=== PATIENT | male | born 1955 | race Caucasian/White ===

== ENCOUNTER 2020-09-01 13:46 | Outpatient (REF) | payer MEDICARE, OTHER, SELFPAY ==
[2020-09-01 14:42] LABS: Blood Urea Nitrogen 17 mg/dL (9-16); Estimated Glomerular Filt Rate > 60
== END 2020-09-01 13:47 | disposition home or self-care (01) ==
LOC: HO.LAB 13:46
PROVIDERS: PCP Internal Medicine; Visit Provider Internal Medicine
DX: Z01.812 Encounter for preprocedural laboratory examination (principal)
CPT/HCPCS: 82565; 84520

== ENCOUNTER 2020-09-06 07:41 | Outpatient (REF) | payer MEDICARE, OTHER, SELFPAY ==
--- NOTE | 2020-09-06 07:47 | CT_ITS ---
EXAMINATION: CT ABDOMEN AND PELVIS WITH CONTRAST CLINICAL INFORMATION: Mesenteric adenitis COMPARISON: CT abdomen and pelvis with contrast 03/17/2020 TECHNIQUE: Multidetector volumetric images were obtained from the superior aspect of the liver through the pubic symphysis following administration 95 mL of Omnipaque 350 intravenous contrast. Sagittal and coronal reformatted images were obtained on the technologist's workstation. Oral contrast: No This CT examination was performed using dose optimization techniques as appropriate, variously including the following: *Automated exposure control *Adjustment of mA and/or kV according to patient size (this includes techniques or standardized protocols for targeted exams where dose is matched to indication/reason for exam; i.e. extremities or head) *Use of iterative reconstruction technique DLP: 1249 mGy-cm FINDINGS: LUNG BASES: The visualized lung bases are unremarkable. LIVER, GALLBLADDER, AND BILIARY TREE: The liver is normal in size, shape, and attenuation. No focal hepatic lesion or biliary ductal dilatation is present. The gallbladder has been surgically removed. PANCREAS: Unremarkable. SPLEEN: Unremarkable. ADRENAL GLANDS: Unremarkable. KIDNEYS AND URETERS: The kidneys are slightly lobulated but normal size and position. There is a partially exophytic 2.2 x 2.0 cm lesion in the midpole and a smaller 7 mm cyst in the lower pole of the right kidney. BLADDER: Unremarkable. GASTROINTESTINAL TRACT: There is scattered stool and gas seen throughout the colon without distention. The small bowel loops are normal caliber. The stomach is nondistended. There is an 8 mm lesion at the tip of the inferior spleen, stable. The appendix is not seen. ABDOMINAL WALL: There is a small fat-containing umbilical and left inguinal hernia. LYMPH NODES: Again visualized are multiple small mesenteric lymph nodes most pronounced in the right abdomen pericecal region and right small bowel mesentery. Mild stranding along the mesenteric root is also stable. No abnormal retroperitoneal lymph nodes seen. VASCULAR: Unremarkable. PELVIC VISCERA: There is no free air or free fluid. The prostate gland is normal size. OSSEOUS STRUCTURES: No lytic or sclerotic process seen. There is mild ventral spondylosis, lower dorsal spine. CT/CT abdomen pelvis w con IMPRESSION: 1. Stable small mesenteric lymph nodes and mild focal haziness along the root of the mesentery. Likely nonspecific mesenteric adenitis. However, inflammatory, infectious etiology including lymphoma is not excluded. Consider long-term follow-up in 1 year. 2. No change in the umbilical and left inguinal hernia. 3. Exophytic lesion inferior tip of spleen, and 2 right renal cysts are stable.
[2020-09-06] MEDS: iohexoL 350 MG/ML 100 ML INFUS..BTL 95 ML IV (10:24)
[2020-09-06] MEDS: Barium Sulfate Oral (Vanilla) 450 ML ORAL.SUSP 900 ML PO (10:27)
== END 2020-09-06 07:42 | disposition home or self-care (01) ==
LOC: HO.CT 07:41
PROVIDERS: Visit Provider Internal Medicine
DX: I88.0 Nonspecific mesenteric lymphadenitis (principal)
CPT/HCPCS: 74177; Q9967

== ENCOUNTER 2020-11-16 06:48 | Outpatient (REF) | payer MEDICARE, OTHER, SELFPAY ==
[2020-11-16 07:47] LABS: Alanine Aminotransferase 16 U/L (0-40); Albumin Level 4.1 g/dL (3.5-5.0); Alkaline Phosphatase 92 U/L (39-117); Aspartate Amino Transferase 20 U/L (5-37); Bilirubin Direct 0.4 mg/dL (0.0-0.5); Bilirubin Total 0.8 mg/dL (0.0-1.0); Cholesterol 135 mg/dL; Glucose Fasting 122 mg/dL (60-99); HDL Cholesterol 37 mg/dL; LDL Cholesterol Calculated 73 mg/dl; Total Protein 7.2 g/dL (6.5-8.0); Triglycerides 127 mg/dL
[2020-11-16 08:08] LABS: Thyroid Stimulating Hormone 1.61 uIU/mL (0.32-4.0)
[2020-11-16 08:21] LABS: Reflex LDLD? No
[2020-11-16 09:11] LABS: Estimated Average Glucose 120 mg/dL; Hemoglobin A1c % 5.8 %
== END 2020-11-16 06:49 | disposition home or self-care (01) ==
LOC: HO.LAB 06:48
PROVIDERS: PCP Internal Medicine; Visit Provider Internal Medicine
DX: E78.2 Mixed hyperlipidemia (principal); R73.03 Prediabetes
CPT/HCPCS: 36415; 80061; 80076; 82947; 83036; 84443

== ENCOUNTER → 2020-12-27 08:30 | Outpatient (BNVA) | payer MEDICARE, OTHER, SELFPAY | PROVIDERS: PCP Internal Medicine; Visit Provider Internal Medicine Cardiovascular Disease | DX: I48.91 Unspecified atrial fibrillation (principal) | CPT/HCPCS: 93005 ==

== ENCOUNTER 2021-03-04 12:39 | Emergency (ER) | payer MEDICARE, OTHER, SELFPAY ==
--- NOTE | ~2021-03-04 | XR_ITS ---
EXAMINATION: XR KNEE, RIGHT CLINICAL INFORMATION: Heart upon. Unable to walk COMPARISON: Right knee 08/31/2012 TECHNIQUE: Four views of the right knee. FINDINGS: Minimal loss of medial compartment joint space is noted. There is moderate superior patellar spurring. A small suprapatellar joint effusion. No visible acute fracture, dislocation or lytic process seen. Prominent anterior tibial tubercle is noted. XR/XR knee RT 4V IMPRESSION: No visible acute fracture or dislocation. Moderate superior patellar enthesophyte and minimal anterior tibial tubercle spurring.
--- NOTE | ~2021-03-04 | US_ITS ---
EXAMINATION: ULTRASOUND X-RAY NONVASCULAR RIGHT LOWER EXTREMITY. CLINICAL INFORMATION: Swelling right bilateral fossa. Question Sinclair's cyst. COMPARISON: None TECHNIQUE: Limited imaging through the right popliteal fossa was performed. FINDINGS: There is no discernible Sinclair's cyst present. Minimal fluid is seen along the lateral aspect of right knee, nonspecific. US/US extremity nonvascular johnson IMPRESSION: No Sinclair's cyst seen.
[2021-03-04 13:27] VITALS: BP 148/76; PULSE 65; RESP 18; TEMP 36.6; O2SAT 96; BMI 43.6
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
--- NOTE | 2021-03-04 15:42 | PC.NURSE ---
PATIENT OFF UNIT TO [facility]
--- NOTE | 2021-03-04 17:48 | MHC.CM.ED ---
CM was asked to help with arranging a wheelchair for this pt at 1700. DME stores in [place] close at 1700. [facility] in [place] is open until 7pm. Cm called [facility] to determine what is needed to obtain a wheelchair and have it covered by insurance. Process includes prescription, clinicals, diagnosis, height and weight. That needs to be faxed to DME company and then they will submit to Medicare. Once approved, they will issue the wheelchair. Process could take a couple of days, especially over the weekend. Explained to pt and , they refuse wheelchair at this time and do not want CM to submit required paperwork to DME. Asked CM to call [facility] on [address] to inquire about walkers to purchase. CM called [facility]. They have a standard walker, which supports 350 pounds for $89. Pt and will purchase that. They understand that [facility] cannot submit to insurance for DME. Pt needs to f/u with orthopedics and possible MRI, so they will wait and have orthopedics complete paperwork for w/c if needed. Encouraged pt to rest as much as possible and stay off that knee.
[2021-03-04] MEDS: traMADoL HCL 50 MG TABLET PO (17:50)
== END 2021-03-04 18:03 | disposition home or self-care (01) ==
PROVIDERS: Emergency Provider Internal Medicine; PCP Internal Medicine
DX: M25.561 Pain in right knee (principal); M54.5 Low back pain; I48.0 Paroxysmal atrial fibrillation; Z79.899 Other long term (current) drug therapy
CPT/HCPCS: 73564; 76882; 99283

== ENCOUNTER 2021-03-22 08:14 | Outpatient (REF) | payer MEDICARE, OTHER, SELFPAY ==
--- NOTE | ~2021-03-22 | XR_ITS ---
EXAMINATION: XR KNEE, RIGHT CLINICAL INFORMATION: Right knee pain. COMPARISON: Right knee radiographs dated 03/04/2021. TECHNIQUE: [place] view of the right knee. FINDINGS: The patella is well seated within the trochlea. Mild joint space narrowing with small marginal osteophytes. Central trochlea subchondral cystic change. Superior patellar enthesophytes. XR/XR knee RT 2V IMPRESSION: Mild patellofemoral osteoarthritis, unchanged.
== END 2021-03-22 08:15 | disposition home or self-care (01) ==
LOC: HO.HOSX 08:14
PROVIDERS: Visit Provider Physician Assistant
DX: M17.11 Unilateral primary osteoarthritis, right knee (principal)
CPT/HCPCS: 73560; 99202

== ENCOUNTER 2021-04-27 12:00 | Outpatient (RCR) | payer MEDICARE, OTHER, SELFPAY ==
[2021-04-11 14:07] VITALS: BP 118/70
--- NOTE | 2021-04-11 15:07 | MHC.PT.EP ---
[facility] [place] Office [place] Office [place] Office [address] [phone] F: [phone] F: [phone] F: [phone] F: [phone] Physical Therapy Plan of Care Date of Evaluation: Date of Surgery: NA Diagnosis: Unilateral primary OA of R knee Assessment: Mahin is a 65 year old male referred to PT for unilateral OA of R knee . He reports of having pain for about a month. On PT examination he presented with 4/10 pain, TTP over distal 1/3rd of qaud and fibular head, decreased knee ROM, decreased hip and knee muscle strength, altered posture and gait. He would benefit from skilled PT to address the aforementioned impairments so as to increase his tolerance standing, walking, sit to stand and stair negotiation. He is highly motivated to participate in therapy. Frequency and Duration: The patient will be seen 2/week for 5 weeks Short Term Goals: 1. Pt will present with 50% decrease in pain which will enable him to walk for 30 minutes with straight cane in 2 weeks. 2. Pt will present with knee ROM WNL which will help him negotiate stairs without any pain in 3 weeks Compliance Auditor Goals: 1. Pt will demonstrate an increase in muscle strength by 1 grade which will help him perform sit to stand and get in and out of tub without pain in 4 weeks. 2. Pt will independent with independent with all HEPs for symptom management and maintenance following d/c in 5 weeks. Treatment Plan: Modalities to reduce pain, spasms and effusion. Manual therapy to restore motion and function. Therapeutic exercise to improve strength and flexibility. Neuromuscular re-education for posture and balance. Therapeutic activities to return to functional activities of daily living. Electronically signed by: Kylah Ibarra PT DPT Please sign and return to therapist. Thank you for your referral.
--- NOTE | 2021-06-08 15:51 | MHC.PT.DC ---
[facility] [place] Office [place] Office [place] Office [address] [address] [phone] F: [phone] F: [phone] F: [phone] F: [phone] Physical Therapy Discharge Report Diagnosis: Unilateral primary OA of R knee Date of Surgery: NA Date of Evaluation: 04/11/21 Date of Discharge: 06/08/21 Treatments to Date: 4 Cancellations to Date: 0 No Shows to Date: 0 Discharge Status: Patient Elected to Stop Discharge Summary: Pt did not come to therapy after 4 visits. He is therefore being d/c from therapy. Electronically signed by: Kylah Ibarra PT DPT Please sign and return to therapist. Thank you for your referral.
== END 2021-12-09 13:42 | disposition home or self-care (01) ==
LOC: HO.PT 12:00
PROVIDERS: Visit Provider Physician Assistant
DX: M17.11 Unilateral primary osteoarthritis, right knee (principal)
CPT/HCPCS: 97014; 97110; 97161; 97530

== ENCOUNTER 2021-05-23 11:04 | Outpatient (REF) | payer MEDICARE, OTHER, SELFPAY ==
[2021-05-23 11:09] LABS: MANUAL DIFF FLAG NO
[2021-05-23 11:40] LABS: Basophils Absolute Auto 0.1 X10*3/uL (0.0-0.2); Basophils Percent Auto 0.6 % (0-2); Eosinophils Absolute Auto 0.3 X10*3/uL (0.0-0.4); Eosinophils Percent Auto 3.5 % (0-4); Hematocrit 42.7 % (42-52); Hemoglobin 13.7 g/dl (14.0-18.0); Imm Gran Abs Auto 0.02 X10*3/uL (0.00-0.03); Imm Gran Pct Auto 0.2 % (0.0-0.4); Lymphocytes Absolute Auto 3.2 X10*3/uL (1.2-4.9); Lymphocytes Percent Auto 34.3 % (20-40); Mean Corpuscular HGB Conc 32.1 g/dl (31.0-36.0); Mean Corpuscular Hemoglobin 29.8 pg (27.0-33.0); Mean Platelet Volume 11.2 fL (9.4-12.4); Monocytes Absolute Auto 0.9 X10*3/uL (0.1-1.2); Monocytes Percent Auto 10.1 % (2-11); Neutrophils Absolute Auto 4.7 X10*3/uL (2.0-8.3); Neutrophils Percent Auto 51.3 % (45-73); Platelet Count 190 X10*3/uL (160-400); Red Blood Count 4.59 X10*6/uL (4.60-5.80); Red Cell Distribution Width 12.4 % (11.0-16.0); White Blood Count 9.2 X10*3/uL (4.8-10.8)
[2021-05-23 12:02] LABS: Alanine Aminotransferase 22 U/L (0-40); Albumin Level 3.9 g/dL (3.5-5.0); Alkaline Phosphatase 87 U/L (39-117); Anion Gap 13 (12-20); Aspartate Amino Transferase 21 U/L (5-37); Bilirubin Total 0.5 mg/dL (0.0-1.0); Blood Urea Nitrogen 19 mg/dL (9-16); Calcium 8.7 mg/dL (8.4-10.2); Carbon Dioxide 27 mmol/L (22-29); Chloride 105 mmol/L (96-108); Cholesterol 101 mg/dL; Estimated Glomerular Filt Rate > 60; Glucose Fasting 111 mg/dL (60-99); HDL Cholesterol 31 mg/dL; LDL Cholesterol Calculated 53 mg/dl; Potassium 4.6 mmol/L (3.3-5.1); Sodium 140 mmol/L (135-145); Triglycerides 88 mg/dL
[2021-05-23 12:05] LABS: Reflex LDLD? No
[2021-05-23 12:13] LABS: Estimated Average Glucose 117 mg/dL; Hemoglobin A1c % 5.7 %
[2021-05-23 12:16] LABS: PSA,Total (Free>4and<10) 0.24 ng/mL (0.00-4.00)
[2021-05-23 12:29] LABS: Glucose Urine UA NEG (NEG); Leukocyte Esterase Urine NEG (NEG); Nitrite Urine NEG (NEG); Specific Gravity - Urine 1.025 (1.005-1.025); Urine Blood NEG (NEG); Urine Ketones NEG (NEG); Urine Protein NEG (NEG-TRACE)
[2021-05-23 12:41] LABS: Appearance Urine CLEAR; Color Urine YELLOW
[2021-05-23 12:46] LABS: Creatinine Urine 128.13 mg/dL; Microalbumin Urine < 5.0 mg/L
== END 2021-05-23 11:05 | disposition home or self-care (01) ==
LOC: HO.LNP 11:04
PROVIDERS: Visit Provider Internal Medicine
DX: Z12.5 Encounter for screening for malignant neoplasm of prostate (principal); R73.03 Prediabetes; E78.2 Mixed hyperlipidemia; I10 Essential (primary) hypertension
CPT/HCPCS: 80053; 80061; 81003; 82043; 83036; 84153; 85025

== ENCOUNTER → 2021-07-11 08:23 | Outpatient (BNVA) | payer MEDICARE, OTHER, SELFPAY | PROVIDERS: PCP Internal Medicine; Visit Provider Internal Medicine Cardiovascular Disease | DX: I48.0 Paroxysmal atrial fibrillation (principal); I10 Essential (primary) hypertension | CPT/HCPCS: 93005; 99212 ==

== ENCOUNTER → 2021-08-18 10:15 | Outpatient (REF) | payer MEDICARE, OTHER, SELFPAY ==
--- NOTE | 2021-08-18 10:21 | CA_ITS ---
Transthoracic Echocardiogram Patient (Last, First, Middle): Mahin Ambrocio G Gender: Male Date of : 1955 Age: 65 Procedure Date: 08/18/2021 Procedure Type: Transthoracic Echocardiogram Location: OP Height: 187.96 cm Weight: 137.89 kg BSA: 2.60 m2 Heart Rate: bpm BP: 114 / 57 mmHg Capacity Management Specialist: YR/CP Referring MD: Lucas Chris MD Market Development Specialist: Lucas Chris MD Symptoms: I48.0 - Paroxysmal atrial fibrillation Study Quality: Technically Difficult/Contrast ECG Rhythm: Sinus Conclusions: - 1. Normal LV systolic function with suggestion of pseudonormal filling pattern 2. Mildly dilated left atrium 3. Normal cardiac valvular Doppler 4. Normal RV systolic pressure 5. No gross pericardial effusion Findings Procedure Information Contrast agent, definity, is being given per protocol without apparent complications. Left Ventricle Normal left ventricular size, thickness, and systolic function. The visually estimated ejection fraction is between 55-60%. Spectral Doppler is indicative of a pseudonormal filling pattern. E/E prime ratio is between 8 and 15 consistent with indeterminate filling pressures. Right Ventricle Normal right ventricular cavity size and systolic function. Atria The left atrium is mildly dilated. Interatrial shunt cannot be excluded. The right atrium was not well visualized. Aortic Valve The aortic valve structure and function is likely normal. There is no aortic valve stenosis. There is no aortic valve regurgitation. Mitral Valve Likely normal mitral valve structure and function. There is trace mitral valve regurgitation. There is no mitral valve stenosis. Pulmonic Valve The pulmonic valve was not well visualized. Tricuspid Valve The tricuspid valve was not well visualized. There is trace tricuspid valve regurgitation. The right ventricular systolic pressure is normal. The right ventricular systolic pressure is 30 mmHg. Normal right atrial pressure. There is no evidence of pulmonary hypertension. Great Vessels All visible segments of the aorta are normal in size. The pulmonary artery was not well visualized. Venous The inferior vena cava is normal in size. Pericardium/Pleural There is no evidence of pericardial effusion. Prior Study Comparison No significant change compared to prior study dated: 06/09/2019. Measurements 2D Linear Measurements IVSd: 0.92 0.6-0.9/0.6-1.0 cm LVIDd: 5.94 3.9-5.3/4.2-5.9 cm LVIDd Index: 2.28 2.4-3.2/2.2-3.1 cm/m2 LVIDs: 3.87 2.0-3.6 cm LVPWd: 0.86 0.7-1.1 cm Ao Root: 3.20 2.1-3.5 cm LA Diam: 4.60 2.7-3.8/3.0-4.0 cm LAIDs Index: 1.77 1.5-2.3 cm/m2 LV Mass: 260.91 67-162/88-224 g LV Mass Index: 100.35 43-95/49-115 g/m2 LVOT Diam: 2.20 3.0+(-)1.3 cm 2D Systolic Function EF 4C: 52.70 >55% EF 2C: 59.90 >55% EF BiP: 56.00 >55% Mitral Valve MV Pk E: 0.93 MV PK A: 0.67 MV Decel Time: 235.00 E/A: 1.40 E'Lateral: 11.10 E'Medial: 6.42 E/E' Med: 14.50 E/E' Lat: 8.40 PHT: 69.00 MVA PHT: 3.19 Decel Duchesne: 3.98 Aortic Valve AoV Pk Booker: 1.79 AoV Mn Booker: 1.24 AoV VTI: 0.41 AoV Pk Grad: 13.00 Aov Mn Grad: 7.00 DAMON Cont.VTI: 2.12 LVOT LVOT Pk Booker: 1.01 LVOT Mn Booker: 0.72 LVOT VTI: 0.23 LVOT Pk Grad: 4.00 LVOT Mn Grad: 2.00 LVOT Diam: 2.20 LVOT Area: 3.80 Diastolic Function MV Pk E: 0.93 MV Pk A: 0.67 E/A: 1.40 E'Medial: 6.42 E/E' Med: 14.50 E' Laterial: 11.10 E/E' Lat: 8.40 Right Ventricle TAPSE (mm): 3.10 TVS' Booker: 11.00 Tricuspid Valve TR Pk Booker: 2.58 TR Pk Grad: 27.00 RA Press: 3.00 RVSP: 30.00 Great Vessels Aorta Ao Root-2D: 3.20 2.0-3.7 cm Ao Asc: 3.40 2.1-3.4 cm Updated in Other Vendor System with Status of Final Lucas Chris MD electronically signed on 08/18/2021 12:25:10 PM with status of Final
== END ==
LOC: HO.CARD 10:15
PROVIDERS: PCP Internal Medicine; Visit Provider Internal Medicine Cardiovascular Disease
DX: I48.0 Paroxysmal atrial fibrillation (principal)
CPT/HCPCS: 93306; Q9957

== ENCOUNTER 2021-09-01 13:57 | Outpatient (REF) | payer MEDICARE, OTHER, SELFPAY ==
[2021-09-01 14:24] LABS: Blood Urea Nitrogen 19 mg/dL (9-16); Estimated Glomerular Filt Rate > 60
== END 2021-09-01 13:58 | disposition home or self-care (01) ==
LOC: HO.LNP 13:57
PROVIDERS: Visit Provider Internal Medicine
DX: Z01.812 Encounter for preprocedural laboratory examination (principal); R73.03 Prediabetes
CPT/HCPCS: 82565; 84520

== ENCOUNTER 2021-09-05 08:20 | Outpatient (REF) | payer MEDICARE, OTHER, SELFPAY ==
--- NOTE | ~2021-09-05 | CT_ITS ---
EXAMINATION: CT ABDOMEN AND PELVIS WITH CONTRAST CLINICAL INFORMATION: Diverticulitis COMPARISON: Previous CT of the abdomen and pelvis August 2020 TECHNIQUE: Multidetector volumetric images were obtained from the superior aspect of the liver through the pubic symphysis following administration 85 mL of Omnipaque 350 intravenous contrast. Sagittal and coronal reformatted images were obtained on the technologist's workstation. Oral contrast: Yes This CT examination was performed using dose optimization techniques as appropriate, variously including the following: *Automated exposure control *Adjustment of mA and/or kV according to patient size (this includes techniques or standardized protocols for targeted exams where dose is matched to indication/reason for exam; i.e. extremities or head) *Use of iterative reconstruction technique DLP: 936 mGy-cm FINDINGS: LUNG BASES: The visualized lung bases are unremarkable. LIVER, GALLBLADDER, AND BILIARY TREE: The liver is normal in size, shape, and attenuation. No focal hepatic lesion or biliary ductal dilatation is present. The gallbladder has been removed. PANCREAS: Unremarkable. SPLEEN: Unremarkable. ADRENAL GLANDS: Unremarkable. KIDNEYS AND URETERS: The kidneys are normal in size, shape, and attenuation. No hydronephrosis, hydroureter, or calculi seen. There is a 2 cm cyst in the upper pole and smaller 8 mm probable cyst in the lower pole of the right kidney. Stable and no imaging follow-up needed. BLADDER: Unremarkable. GASTROINTESTINAL TRACT: The small and large bowel are unremarkable. The appendix is not seen. Stomach is unremarkable. ABDOMINAL WALL: There is a small umbilical hernia containing fat. There is a small left inguinal hernia containing fat. LYMPH NODES: There are numerous shotty small bowel mesentery lymph nodes and some retroperitoneal lymph nodes. This does not appear appreciably changed from 2020 exam. VASCULAR: There is evidence of atherosclerotic disease. No aneurysm is seen. PELVIC VISCERA: The prostate gland is slightly enlarged and measures 4.5 x 5.3 cm in AP and transverse dimension. OSSEOUS STRUCTURES: There are degenerative changes of the spine and hip joints. There is curvature of the lower lumbar spine to the right.. CT/CT abdomen pelvis w con IMPRESSION: No evidence of diverticulosis or diverticulitis. Slightly enlarged prostate gland. Stable shotty small bowel mesentery and retroperitoneal lymphadenopathy. Small right renal cyst. Fleischner guidelines were followed.
[2021-09-05] MEDS: Barium Sulfate Oral (Mocha) 450 ML ORAL.SUSP 900 ML PO (10:57)
[2021-09-05] MEDS: iohexoL 350 MG/ML 100 ML INFUS..BTL IV (10:58)
== END 2021-09-05 08:21 | disposition home or self-care (01) ==
LOC: HO.CT 08:20
PROVIDERS: Visit Provider Internal Medicine
DX: K57.92 Diverticulitis of intestine, part unspecified, without perforation or abscess without bleeding (principal)
CPT/HCPCS: 74177; Q9967

== ENCOUNTER → 2022-01-24 13:49 | Outpatient (BNVA) | payer MEDICARE, OTHER, SELFPAY | PROVIDERS: PCP Internal Medicine; Referring Provider Internal Medicine; Visit Provider Nurse Practitioner Family | DX: I10 Essential (primary) hypertension (principal); I48.0 Paroxysmal atrial fibrillation; Z79.01 Long term (current) use of anticoagulants; Z79.899 Other long term (current) drug therapy | CPT/HCPCS: 93005; 99212 ==

== ENCOUNTER 2022-02-23 11:01 | Outpatient (REF) | payer MEDICARE, OTHER, SELFPAY ==
[2022-02-23 11:18] LABS: Estimated Average Glucose 114 mg/dL; Hemoglobin A1c % 5.6 %
[2022-02-23 11:23] LABS: Alanine Aminotransferase 17 U/L (0-40); Alkaline Phosphatase 88 U/L (39-117); Aspartate Amino Transferase 22 U/L (5-37); Bilirubin Direct 0.5 mg/dL (0.0-0.5); Bilirubin Total 1.1 mg/dL (0.0-1.0); Cholesterol 118 mg/dL; Glucose Fasting 108 mg/dL (60-99); HDL Cholesterol 35 mg/dL; LDL Cholesterol Calculated 63 mg/dl; Total Protein 7.5 g/dL (6.5-8.0); Triglycerides 100 mg/dL
[2022-02-23 11:46] LABS: Reflex LDLD? No
== END 2022-02-23 11:02 | disposition home or self-care (01) ==
LOC: HO.LNP 11:01
PROVIDERS: Visit Provider Internal Medicine
DX: R73.03 Prediabetes (principal); E78.2 Mixed hyperlipidemia
CPT/HCPCS: 80061; 80076; 82947; 83036

== ENCOUNTER 2022-05-26 14:00 | Outpatient (REF) | payer MEDICARE, OTHER, SELFPAY ==
[2022-05-26 14:04] LABS: MANUAL DIFF FLAG NO
[2022-05-26 14:08] LABS: Appearance Urine HAZY; Color Urine YELLOW; Glucose Urine UA NEG (NEG); Leukocyte Esterase Urine NEG (NEG); Nitrite Urine NEG (NEG); PH 5.5 (5.0-8.0); Specific Gravity - Urine 1.015 (1.005-1.025); Urine Blood TRACE (NEG); Urine Ketones NEG (NEG); Urine Protein NEG (NEG-TRACE)
[2022-05-26 14:09] LABS: Basophils Absolute Auto 0.1 X10*3/uL (0.0-0.2); Basophils Percent Auto 0.8 % (0-2); Eosinophils Absolute Auto 0.3 X10*3/uL (0.0-0.4); Hemoglobin 13.7 g/dl (14.0-18.0); Imm Gran Abs Auto 0.03 X10*3/uL (0.00-0.03); Imm Gran Pct Auto 0.3 % (0.0-0.4); Lymphocytes Absolute Auto 3.1 X10*3/uL (1.2-4.9); Lymphocytes Percent Auto 31.7 % (20-40); Mean Corpuscular HGB Conc 32.6 g/dl (31.0-36.0); Mean Corpuscular Hemoglobin 29.8 pg (27.0-33.0); Mean Corpuscular Volume 91.3 fL (80.0-98.0); Mean Platelet Volume 10.7 fL (9.4-12.4); Monocytes Percent Auto 10.7 % (2-11); Neutrophils Absolute Auto 5.1 x10*3/uL (2.0-8.3); Neutrophils Percent Auto 53.5 % (45-73); Platelet Count 203 X10*3/uL (160-400); Red Cell Distribution Width 12.4 % (11.0-16.0); White Blood Count 9.6 X10*3/uL (4.8-10.8)
[2022-05-26 14:15] LABS: Estimated Average Glucose 117 mg/dL; Hemoglobin A1c % 5.7 %
[2022-05-26 14:17] LABS: RBC Urine 0-2 /HPF (0); WBC Urine 0 /HPF (0-4)
[2022-05-26 14:18] LABS: Squamous Epithelial Cell Urine TRACE /LPF
[2022-05-26 14:22] LABS: Alanine Aminotransferase 16 U/L (0-40); Alkaline Phosphatase 94 U/L (39-117); Anion Gap 13 (12-20); Aspartate Amino Transferase 19 U/L (5-37); Bilirubin Total 0.7 mg/dL (0.0-1.0); Blood Urea Nitrogen 17 mg/dL (9-16); Calcium 8.7 mg/dL (8.4-10.2); Carbon Dioxide 28 mmol/L (22-29); Chloride 103 mmol/L (96-108); Cholesterol 121 mg/dL; Estimated Glomerular Filt Rate > 60; Glucose Fasting 111 mg/dL (60-99); HDL Cholesterol 38 mg/dL; LDL Cholesterol Calculated 64 mg/dl; Potassium 4.2 mmol/L (3.3-5.1); Sodium 140 mmol/L (135-145); Total Protein 7.3 g/dL (6.5-8.0); Triglycerides 97 mg/dL
[2022-05-26 14:28] LABS: Creatinine Urine 86.12 mg/dL; Microalbumin Urine < 5.0 mg/L
== END 2022-05-26 14:01 | disposition home or self-care (01) ==
LOC: HO.LNP 14:00
PROVIDERS: Visit Provider Internal Medicine
DX: E78.2 Mixed hyperlipidemia (principal); I10 Essential (primary) hypertension; R73.03 Prediabetes
CPT/HCPCS: 80053; 80061; 81001; 82043; 83036; 85025

== ENCOUNTER 2022-06-05 15:34 | Outpatient (REF) | payer MEDICARE, OTHER, SELFPAY ==
[2022-06-05 16:19] LABS: PSA,Total (Free>4and<10) 0.15 ng/mL (0.00-4.00)
== END 2022-06-05 15:35 | disposition home or self-care (01) ==
LOC: HO.LNP 15:34
PROVIDERS: Visit Provider Internal Medicine
DX: Z12.5 Encounter for screening for malignant neoplasm of prostate (principal)
CPT/HCPCS: 84153

== ENCOUNTER → 2022-07-25 09:17 | Outpatient (BNVA) | payer MEDICARE, OTHER, SELFPAY | PROVIDERS: PCP Internal Medicine; Referring Provider Internal Medicine; Visit Provider Internal Medicine Cardiovascular Disease | DX: I48.0 Paroxysmal atrial fibrillation (principal); I10 Essential (primary) hypertension | CPT/HCPCS: 93005; 99212 ==

== ENCOUNTER 2022-07-29 20:23 | Emergency (ER) | payer MEDICARE, OTHER, SELFPAY ==
--- NOTE | ~2022-07-29 | XR_ITS ---
EXAMINATION: XR CHEST CLINICAL INFORMATION: Chest pain COMPARISON: 10/15/2017 TECHNIQUE: Frontal view of the chest was obtained. FINDINGS: Normal symmetric lung volumes. No parenchymal consolidation. No pleural effusion. No pneumothorax. Cardiomediastinal silhouette and pulmonary vascularity are within normal limits. No acute osseous abnormalities. XR/XR chest 1V IMPRESSION: No acute findings
--- NOTE | 2022-07-29 20:36 | ECG_ITS ---
Test Reason : CHEST PAIN Blood Pressure : / mmHG Vent. Rate : 059 BPM Atrial Rate : 059 BPM P-R Int : 200 ms QRS Dur : 130 ms QT Int : 416 ms P-R-T Axes : 010 -36 017 degrees QTc Int : 411 ms Sinus bradycardia Intra-ventricular conduction delay Left anterior fascicular block Left ventricular hypertrophy with QRS widening ( R in aVL , Yo product ) Abnormal ECG When compared with ECG of 15-OCT-2017 12:52, Premature ventricular complexes are no longer Present Referred By: Generic ED Physician Electronically Signed By:AMRIT VALDEZ MD
[2022-07-29 20:37] VITALS: BP 154/84; PULSE 60; RESP 18; TEMP 37.2; O2SAT 96; BMI 39.9
[2022-07-29 20:52] LABS: MANUAL DIFF FLAG NO
[2022-07-29 20:56] LABS: Basophils Absolute Auto 0.1 X10*3/uL (0.0-0.2); Basophils Percent Auto 0.7 % (0-2); Eosinophils Absolute Auto 0.5 X10*3/uL (0.0-0.4); Eosinophils Percent Auto 4.5 % (0-4); Hematocrit 39.2 % (42.0-52.0); Hemoglobin 13.2 g/dl (14.0-18.0); Imm Gran Abs Auto 0.03 X10*3/uL (0.00-0.03); Imm Gran Pct Auto 0.3 % (0.0-0.4); Lymphocytes Absolute Auto 3.9 X10*3/uL (1.2-4.9); Lymphocytes Percent Auto 36.9 % (20-40); Mean Corpuscular HGB Conc 33.7 g/dl (31.0-36.0); Mean Corpuscular Hemoglobin 30.8 pg (27.0-33.0); Mean Corpuscular Volume 91.4 fL (80.0-98.0); Mean Platelet Volume 9.8 fL (9.4-12.4); Monocytes Absolute Auto 1.1 X10*3/uL (0.1-1.2); Monocytes Percent Auto 10.9 % (2-11); Neutrophils Absolute Auto 4.9 x10*3/uL (2.0-8.3); Neutrophils Percent Auto 46.7 % (45-73); Platelet Count 199 X10*3/uL (160-400); Red Blood Count 4.29 X10*6/uL (4.60-5.80); Red Cell Distribution Width 12.4 % (11.0-16.0); White Blood Count 10.5 X10*3/uL (4.8-10.8)
[2022-07-29 21:08] LABS: COVID-19 Test Negative (Negative)
[2022-07-29 21:17] LABS: Troponin-I High Sensitivity 4.6 ng/L (<3.5-35.0)
--- NOTE | 2022-07-29 21:22 | ED_ITS ---
HPI - Chest Pain General Chief Complaint: Chest Pain Stated Complaint: elevated bp from sinus meds Time Seen by Provider: 07/29/22 21:15 Source: patient and old records reviewed Mode of arrival: ambulatory Limitations: no limitations History of Present Illness HPI narrative: 66 yo male with hx of HTN, arthritis, PAF on xarelto here with c/o feeling like he was in afib earlier with with palpitations, feeling off, chest tightness that has resolved, it started after taking coricidin BP. He notes that he took this for allergies due to attending soccer game. He doesn't normally take these medications. He is compliant with his meds. His BP was much higher at home 170s. He feels much better now like the meds are wearing off. He does not plan on taking this medication in the future. MD complaint: chest pain Onset (ago): hour(s) (2pm) Timing of current episode: now resolved Prior episodes: No Onset: during rest Pain location: substernal Pain radiation: none Severity: mild Quality: tightness Relieving factors: nothing Exacerbating factors: other (started after taking coricidin) Context: other (allergies took medication to relieve runny nose) Associated symptoms: palpitations (thinks he was in afib at home) Treatment prior to arrival: other (regular medications) Related Data Home Medications Medication Instructions Recorded Confirmed meclizine 25 mg tablet 25 mg PO DAILY PRN 03/22/21 07/25/22 metoprolol succinate 50 mg 50 mg PO DAILY 03/22/21 07/25/22 tablet,extended release 24 hr triamcinolone acetonide 0.5 % appl topical 03/22/21 07/25/22 topical cream atorvastatin 20 mg tablet 20 mg PO DAILY 07/11/21 07/25/22 celecoxib 200 mg capsule 200 mg PO DAILY 07/11/21 07/25/22 gabapentin 300 mg capsule 300 mg PO BEDTIME 07/11/21 07/25/22 lisinopril 10 mg tablet 10 mg PO DAILY 07/11/21 07/25/22 Previous Rx's Medication Instructions Recorded chair, wheel (Wheel chair) #1 ea 03/04/21 chair, wheel (Wheel chair) #1 ea 03/04/21 tramadol 50 mg tablet 50 mg PO Q8H PRN pain #8 tabs 03/04/21 flecainide 100 mg tablet 100 mg PO Q12H #180 tabs 11/28/21 rivaroxaban 20 mg tablet (Xarelto) 20 mg PO QPM #30 tabs 03/20/22 fluticasone furoate 27.5 1 spray intranasal DAILY PRN 07/29/22 mcg/actuation nasal allergy symptoms #9.1 mL spray,suspension Allergies Allergy/AdvReac Type Severity Reaction Status Date / Time grass pollen-jacoby, Allergy Mild UNKNOWN Unverified 01/24/22 14:00 standard [Grass Pollen-Jacoby,Std] pollen extracts [POLLEN] Allergy Mild UNKNOWN Unverified 01/24/22 14:00 zolpidem [Ambien] Allergy Unknown unk Verified 01/24/22 14:00 DUST Allergy Mild UNKNOWN Uncoded 01/24/22 14:00 Environmental Allergies Allergy Unknown Sinus Uncoded 01/24/22 14:00 Inflamtion Pt states he has no food Allergy Unknown unk Uncoded 01/24/22 14:00 freddie Review of Systems Review of Systems: Constitutional : No Weight loss, No Fever, No Chills ENT/Mouth : No sore throat, pos Rhinorrhea Eyes: No Eye Pain, No Swelling Cardiovascular : pos Chest Pain, no SOB, no Dyspnea on Exertion, No Orthopnea, No Edema, pos Palpitations Respiratory : No Cough, No Sputum Gastrointestinal : no Nausea, No Vomiting, No Diarrhea, No abdominal Pain, No Hematochezia, No Melena Genitourinary : No Dysuria, No Urinary Frequency Musculoskeletal : No joint pain, No Myalgias, No Joint Swelling Skin : No Skin Lesions, No rash Neuro : No Weakness, No Numbness, No Dizziness, No Headache Psych : No Anxiety/Panic, No Depression Heme/Lymph: No Bruising, No Lymphadenopathy Endocrine : No Polyuria, No Polydipsia All other systems reviewed and are negative PMFSH Past Medical History Attestation statement: The following information was validated with the patient. Medical History Acute knee pain HTN (hypertension) PAF (paroxysmal atrial fibrillation) Surgical History History of deviated nasal septum History of mandibular surgery History of tonsillectomy and adenoidectomy Hx of cholecystectomy Hx of foot surgery Family History Family History Father CVD (cardiovascular disease) Mother No problems noted. Social History Social History Alcohol intake: never Patient Tobacco Use Status: Never used Tobacco Advance Directives: No Current occupational status: retired Physical Exam Vital Signs: Vital Signs: Last Vital Signs Temp 98.9 F 07/29/22 20:37 Pulse 60 07/29/22 20:37 Resp 18 07/29/22 20:37 BP 154/84 H 07/29/22 20:37 Pulse Ox 96 07/29/22 20:37 O2 Del Method 07/29/22 20:37 BMI result Body Mass Index 39.9 Appearance: Alert. Oriented X3. No acute distress. Eyes: Pupils equal, round and reactive to light. ENT: Pharynx normal. Neck: Normal inspection. Neck supple. CVS: Normal heart rate and rhythm. Pulses normal. Respiratory: No respiratory distress. Breath sounds normal. Abdomen: Soft and non-tender. Skin: Skin warm and dry. Normal skin color. Normal skin turgor. Extremities: No lower extremity edema. No calf ttp Neuro: Oriented X 3. No motor deficit. No sensory deficit. Course Course Course Narrative: repeat trop flat stable for DC MDM - Chest Pain MDM Narrative Medical decision making narrative: 66 yo male with hx of HTN, arthritis, PAF on xarelto here after feeling chest tightness and palpitations thinks he was in afib at home now back in sinus rhythm likely precipitated by coricidin - at this time will repeat troponin. Obtain CXR. He has no symptoms now. Anticipate DC home with recommendations to not take coricidin in the future. Lab Data Result diagrams: 07/29/22 20:46 07/29/22 20:46 Labs: Lab Results 07/29/22 07/29/22 07/29/22 Range/Units 20:46 20:46 20:46 WBC 10.5 (4.8-10.8) X10*3/uL RBC 4.29 L (4.60-5.80) X10*6/uL Hgb 13.2 L (14.0-18.0) g/dl Hct 39.2 L (42.0-52.0) % MCV 91.4 (80.0-98.0) fL MCH 30.8 (27.0-33.0) pg MCHC 33.7 (31.0-36.0) g/dl RDW 12.4 (11.0-16.0) % Plt Count 199 (160-400) X10*3/uL MPV 9.8 (9.4-12.4) fL Immature Gran % (Auto) 0.3 (0.0-0.4) % Neut % (Auto) 46.7 (45-73) % Lymph % (Auto) 36.9 (20-40) % [place] % (Auto) 10.9 (2-11) % Eos % (Auto) 4.5 H (0-4) % Baso % (Auto) 0.7 (0-2) % Lymph # (Auto) 3.9 (1.2-4.9) X10*3/uL [place] # (Auto) 1.1 (0.1-1.2) X10*3/uL Eos # (Auto) 0.5 H (0.0-0.4) X10*3/uL Baso # (Auto) 0.1 (0.0-0.2) X10*3/uL Abs Immat Gran (auto) 0.03 (0.00-0.03) X10*3/uL Absolute Neuts (auto) 4.9 (2.0-8.3) x10*3/uL Absolute Nucleated RBC 0.000 (0.0-0.012) X10*3/uL Nucleated RBC % (auto) 0.0 (0.0-0.2) /100WBC Sodium 143 (135-145) mmol/L Potassium 4.8 (3.3-5.1) mmol/L Chloride 105 (96-108) mmol/L Carbon Dioxide 26 (22-29) mmol/L Anion Gap 17 (12-20) BUN 19 H (9-16) mg/dL Creatinine 0.94 (0.5-1.4) mg/dL Estim Creat Clear Calc 118.9 Estimated GFR > 60 Random Glucose 131 H (60-115) mg/dL Calcium 9.2 (8.4-10.2) mg/dL Total Bilirubin 0.5 (0.0-1.0) mg/dL Direct Bilirubin 0.2 (0.0-0.5) mg/dL AST 31 D (5-37) U/L ALT 21 (0-40) U/L Alkaline Phosphatase 94 (39-117) U/L Troponin I High Sens 4.6 (<3.5-35.0) ng/L Total Protein 7.6 (6.5-8.0) g/dL Albumin 4.0 (3.5-5.0) g/dL Lipase 32 (8-78) U/L COVID-19 (LISA) (Negative) COVID-19 Clin Com 07/29/22 07/29/22 Range/Units 20:46 22:50 WBC (4.8-10.8) X10*3/uL RBC (4.60-5.80) X10*6/uL Hgb (14.0-18.0) g/dl Hct (42.0-52.0) % MCV (80.0-98.0) fL MCH (27.0-33.0) pg MCHC (31.0-36.0) g/dl RDW (11.0-16.0) % Plt Count (160-400) X10*3/uL MPV (9.4-12.4) fL Immature Gran % (Auto) (0.0-0.4) % Neut % (Auto) (45-73) % Lymph % (Auto) (20-40) % [place] % (Auto) (2-11) % Eos % (Auto) (0-4) % Baso % (Auto) (0-2) % Lymph # (Auto) (1.2-4.9) X10*3/uL [place] # (Auto) (0.1-1.2) X10*3/uL Eos # (Auto) (0.0-0.4) X10*3/uL Baso # (Auto) (0.0-0.2) X10*3/uL Abs Immat Gran (auto) (0.00-0.03) X10*3/uL Absolute Neuts (auto) (2.0-8.3) x10*3/uL Absolute Nucleated RBC (0.0-0.012) X10*3/uL Nucleated RBC % (auto) (0.0-0.2) /100WBC Sodium (135-145) mmol/L Potassium (3.3-5.1) mmol/L Chloride (96-108) mmol/L Carbon Dioxide (22-29) mmol/L Anion Gap (12-20) BUN (9-16) mg/dL Creatinine (0.5-1.4) mg/dL Estim Creat Clear Calc Estimated GFR Random Glucose (60-115) mg/dL Calcium (8.4-10.2) mg/dL Total Bilirubin (0.0-1.0) mg/dL Direct Bilirubin (0.0-0.5) mg/dL AST (5-37) U/L ALT (0-40) U/L Alkaline Phosphatase (39-117) U/L Troponin I High Sens 4.5 (<3.5-35.0) ng/L Total Protein (6.5-8.0) g/dL Albumin (3.5-5.0) g/dL Lipase (8-78) U/L COVID-19 (LISA) Negative (Negative) COVID-19 Clin Com See Note ECG Data ECG #1: Attestation: I personally reviewed and interpreted this ECG as follows: ECG interpretation date: 07/29/22 ECG interpretation time: 21:26 Interpretation: Rate: 59 Rhythm: sinus bradycardia with 1st degree AVB [place]: left Normal P waves. Normal ELENA. Normal QRS complex. ST T wave : nonspecific no JAMEEL qTC: normal prior studies: no change from 2018 The study has been interpreted contemporaneously by me. . Discharge Plan Discharge Clinical Impression: PAF (paroxysmal atrial fibrillation), Atypical chest pain, Adverse drug reaction Patient Disposition: Home, Self-Care Instructions: A-fib (Atrial Fibrillation) (ED), Chest Pain (ED) Additional Instructions: return to ED for any worsening symptoms or concerns do not take coricidin anymore you may be sensitive to dextromethorphan which is in most cough and cold medications - please be aware repeat troponin heart tests negative Prescriptions: New fluticasone furoate 27.5 mcg/actuation spray,suspension 1 spray intranasal DAILY PRN (Reason: allergy symptoms) Qty: 9.1 0RF Rx Instructions: into each nostril No Action flecainide 100 mg tablet 100 mg PO Q12H Qty: 180 3RF Xarelto 20 mg tablet 20 mg PO QPM Qty: 30 5RF Rx Instructions: must administer with evening meal (DME) Wheel chair Kit See Rx Instructions .ROUTE .MEDSUPPLY Qty: 1 0RF Rx Instructions: As directed tramadol 50 mg tablet 50 mg PO Q8H PRN (Reason: pain) Qty: 8 0RF (DME) Wheel chair Kit See Rx Instructions .ROUTE .MEDSUPPLY Qty: 1 0RF Rx Instructions: As directed meclizine 25 mg tablet 25 mg PO DAILY PRN triamcinolone acetonide 0.5 % cream topical metoprolol succinate 50 mg tablet extended release 24 hr 50 mg PO DAILY gabapentin 300 mg capsule 300 mg PO BEDTIME lisinopril 10 mg tablet 10 mg PO DAILY atorvastatin 20 mg tablet 20 mg PO DAILY celecoxib 200 mg capsule 200 mg PO DAILY
[2022-07-29 21:25] LABS: Alanine Aminotransferase 21 U/L (0-40); Alkaline Phosphatase 94 U/L (39-117); Anion Gap 17 (12-20); Aspartate Amino Transferase 31 U/L (5-37); Bilirubin Direct 0.2 mg/dL (0.0-0.5); Bilirubin Total 0.5 mg/dL (0.0-1.0); Blood Urea Nitrogen 19 mg/dL (9-16); Calcium 9.2 mg/dL (8.4-10.2); Carbon Dioxide 26 mmol/L (22-29); Chloride 105 mmol/L (96-108); Creatinine Clr Calc Pharmacy 118.9; Estimated Glomerular Filt Rate > 60; Glucose Random 131 mg/dL (60-115); Lipase 32 U/L (8-78); Potassium 4.8 mmol/L (3.3-5.1); Sodium 143 mmol/L (135-145); Total Protein 7.6 g/dL (6.5-8.0)
[2022-07-29 23:19] LABS: Troponin-I High Sensitivity 4.5 ng/L (<3.5-35.0)
== END 2022-07-29 23:43 | disposition home or self-care (01) ==
PROVIDERS: Emergency Provider Emergency Medicine; PCP Internal Medicine
DX: I48.0 Paroxysmal atrial fibrillation (principal); R07.89 Other chest pain; T48.4X5A Adverse effect of expectorants, initial encounter; Y92.322 Soccer field as the place of occurrence of the external cause; I10 Essential (primary) hypertension; Z20.822 Contact with and (suspected) exposure to COVID-19
CPT/HCPCS: 36415; 71045; 80053; 82248; 83690; 84484; 85025; 87635; 93005; 99283

== ENCOUNTER → 2022-09-28 08:49 | Outpatient (REF) | payer MEDICARE, OTHER, SELFPAY ==
--- NOTE | ~2022-09-28 | NM_ITS ---
Lexiscan Myocardial perfusion study Indication: Coronary artery disease, assess for ischemia Technique: The patient was brought in for a Lexiscan perfusion study on 09/28/2022 and was injected 0.4 mg of Lexiscan intravenously. Within a minute of this injection 45 mCi of sestamibi was given intravenously. Images were obtained using the SPECT gamma camera interlaced with the gating device. Images were obtained in supine position. Resting perfusion study was performed on 09/29/2022. Patient was administered 45 mCi of sestamibi intravenously at rest. Images were then obtained in supine position. Images were processed with the software and compared side to side in short axis, horizontal long axis and vertical long axis views. Total DLP 181mGy-cm. Findings: Raw acquisition reviewed. The stress perfusion study showed mildly diminished tracer uptake in the basal part of inferoseptal wall with CT attenuation correction, there is improvement suggestive of diaphragmatic attenuation artifact. The gated study shows normal LV systolic function with calculated LVEF of 66%. LV cavity is normal in size. The gated study shows normal wall thickening and contraction of segments. Resting study shows diminished tracer uptake along the basal part of inferior wall. Gating at rest reveals normal wall motion with ejection fraction at 56%. The findings are consistent with no clear reversible or fixed perfusion defects. NM/NM johan perf SPECT rest & str Impression: 1. Myocardial perfusion imaging study shows likely normal myocardial perfusion. No clear evidence of any ischemia or infarction. 2. Gated LVEF is 66% during stress and 56% during rest. 3. Transient ischemic dilatation not present. EKG component of the test reported separately.
--- NOTE | 2022-09-28 08:52 | CA_ITS ---
Acquisition Time: 2022-09-28 09:06:16 Total Exercise Time: 00:02:00 Test Indications: I48.0, R07.9, Medications: See H Protocol: LEXISCAN Max HR: 106 BPM 69% of Pred: 153 BPM Max BP: 116/078 mmHG Max Work Load: 1.6 METS Pharmacological stress test with Lexiscan injection, while walking slow on treadmill, without anginal symptoms, without arrythmia, with normotensive response to exercise, wth nondiagnostic EKG for ischemia. Nuclear images pending. Test reviewed with Dr Bernardo. Referred By: Lucas Chris Overread By: BHANU GRIMES
== END ==
LOC: HO.CARD 08:49
PROVIDERS: PCP Internal Medicine; Visit Provider Internal Medicine Cardiovascular Disease
DX: R07.9 Chest pain, unspecified (principal); I48.0 Paroxysmal atrial fibrillation
CPT/HCPCS: 78452; 93017; A9500; J0280; J2785

== ENCOUNTER 2022-11-28 11:00 | Outpatient (REF) | payer MEDICARE, OTHER, SELFPAY ==
[2022-11-28 12:48] LABS: Alanine Aminotransferase 20 U/L (0-40); Alkaline Phosphatase 94 U/L (39-117); Aspartate Amino Transferase 23 U/L (5-37); Bilirubin Direct 0.3 mg/dL (0.0-0.5); Cholesterol 128 mg/dL; HDL Cholesterol 37 mg/dL; LDL Cholesterol Calculated 70 mg/dl; Total Protein 7.1 g/dL (6.5-8.0); Triglycerides 109 mg/dL
[2022-11-28 13:59] LABS: Reflex LDLD? No
== END 2022-11-28 11:01 | disposition home or self-care (01) ==
LOC: HO.LNP 11:00
PROVIDERS: Visit Provider Internal Medicine
DX: R73.09 Other abnormal glucose (principal); E78.2 Mixed hyperlipidemia
CPT/HCPCS: 80061; 80076

== ENCOUNTER → 2022-12-11 09:22 | Outpatient (BNVA) | payer MEDICARE, OTHER, SELFPAY | PROVIDERS: PCP Internal Medicine; Visit Provider Surgery | DX: K60.0 Acute anal fissure (principal) | CPT/HCPCS: 99202 ==

== ENCOUNTER → 2022-12-27 09:04 | Outpatient (BNVA) | payer MEDICARE, OTHER, SELFPAY | PROVIDERS: PCP Internal Medicine; Visit Provider Surgery | DX: K60.0 Acute anal fissure (principal) | CPT/HCPCS: Q3014 ==

== ENCOUNTER → 2023-01-16 08:00 | Outpatient (REF) | payer MEDICARE, OTHER, SELFPAY ==
--- NOTE | 2023-01-16 08:02 | CA_ITS ---
Transthoracic Echocardiogram Patient (Last, First, Middle): Mahin Ambrocio G Gender: Male Date of : 1955 Age: 67 Procedure Date: 01/16/2023 Procedure Type: Transthoracic Echocardiogram Location: OP Height: 190.5 cm Weight: 145.15 kg BSA: 2.68 m2 Heart Rate: bpm BP: 122 / 70 mmHg Hotel Associate: TO Referring MD: Lucas Chris MD Symptoms: I48.0 - Paroxysmal atrial fibrillation Study Quality: Technically Difficult/Contrast ECG Rhythm: Sinus Conclusions: - The left ventricular systolic function is normal. The calculated ejection fraction is 56% by biplane method. - There is moderate septal asymmetric hypertrophy. - There is mild calcification of the aortic valve. - There is mild mitral annular calcification. There is mild mitral valve regurgitation. Findings Procedure Information Contrast agent, definity, is being given per protocol without apparent complications. Left Ventricle Normal left ventricular cavity size. The left ventricular systolic function is normal. The calculated ejection fraction is 56% by biplane method. There is no evidence of regional wall motion abnormalities. Diastolic function is normal for age. There is moderate septal asymmetric hypertrophy. Right Ventricle Normal right ventricular cavity size and systolic function. Atria Both atria are normal in size. Aortic Valve There is a normal trileaflet aortic valve. There is mild calcification of the aortic valve. There is no aortic valve stenosis. There is no aortic valve regurgitation. Mitral Valve The mitral valve was not well visualized. There is mild mitral annular calcification. There is mild mitral valve regurgitation. There is no mitral valve stenosis. Pulmonic Valve The pulmonic valve is likely normal. Tricuspid Valve There is mild tricuspid valve regurgitation. There is no evidence of pulmonary hypertension. Great Vessels The asc aorta is normal in size. Venous The inferior vena cava is normal in size and collapses greater than 50% with inspiration. Pericardium/Pleural There is no evidence of pericardial effusion. Prior Study Comparison No significant change compared to prior study dated: 08/18/2021. Measurements 2D Linear Measurements IVSd: 1.30 0.6-0.9/0.6-1.0 cm LVIDd: 5.43 3.9-5.3/4.2-5.9 cm LVIDd Index: 2.03 2.4-3.2/2.2-3.1 cm/m2 LVIDs: 4.07 2.0-3.6 cm LVPWd: 0.95 0.7-1.1 cm LA Diam: 4.10 2.7-3.8/3.0-4.0 cm LAIDs Index: 1.53 1.5-2.3 cm/m2 LV Mass: 303.86 67-162/88-224 g LV Mass Index: 113.38 43-95/49-115 g/m2 LVOT Diam: 2.20 3.0+(-)1.3 cm 2D Systolic Function EF 4C: 57.10 >55% EF 2C: 56.60 >55% EF BiP: 55.60 >55% Mitral Valve MV VTI: 0.41 MV Pk Booker: 1.16 MV Mn Booker: 0.69 MV Pk Grad: 5.00 MV Mn Grad: 2.00 MV Pk E: 0.89 MV PK A: 0.71 MV Decel Time: 233.00 E/A: 1.30 E'Lateral: 11.50 E'Medial: 5.98 E/E' Med: 14.90 E/E' Lat: 7.70 PHT: 68.00 MVA PHT: 3.24 MVA Continuity: 2.22 Decel Mayes: 3.82 Aortic Valve AoV Pk Booker: 2.01 AoV Mn Booker: 1.34 AoV VTI: 0.49 AoV Pk Grad: 16.00 Aov Mn Grad: 8.00 DAMON Cont.VTI: 1.86 LVOT LVOT Pk Booker: 0.84 LVOT Mn Booker: 0.68 LVOT VTI: 0.24 LVOT Pk Grad: 3.00 LVOT Mn Grad: 2.00 LVOT Diam: 2.20 LVOT Area: 3.80 Diastolic Function MV Pk E: 0.89 MV Pk A: 0.71 E/A: 1.30 E'Medial: 5.98 E/E' Med: 14.90 E' Laterial: 11.50 E/E' Lat: 7.70 Right Ventricle TAPSE (mm): 22.90 TVS' Booker: 11.10 Tricuspid Valve TR Pk Booker: 2.68 TR Pk Grad: 29.00 Great Vessels Aorta Sinus of Valsalva: 3.51 2.0-3.5 cm Ao Asc: 3.20 2.1-3.4 cm Updated in Other Vendor System with Status of Final Jona Bernardo MD electronically signed on 01/16/2023 4:55:58 PM with status of Final
== END ==
LOC: HO.CARD 08:00
PROVIDERS: PCP Internal Medicine; Visit Provider Internal Medicine Cardiovascular Disease
DX: I48.0 Paroxysmal atrial fibrillation (principal)
CPT/HCPCS: 93306; Q9957

== ENCOUNTER → 2023-01-25 12:50 | Outpatient (BNVA) | payer MEDICARE, OTHER, SELFPAY | PROVIDERS: PCP Internal Medicine; Visit Provider Surgery | DX: K60.0 Acute anal fissure (principal); E66.01 Morbid (severe) obesity due to excess calories; Z68.41 Body mass index [BMI] 40.0-44.9, adult; Z90.49 Acquired absence of other specified parts of digestive tract | CPT/HCPCS: 46600; 99212 ==

== ENCOUNTER → 2023-01-30 09:29 | Outpatient (BNVA) | payer MEDICARE, OTHER, SELFPAY | PROVIDERS: PCP Internal Medicine; Referring Provider Internal Medicine; Visit Provider Internal Medicine Cardiovascular Disease | DX: I48.0 Paroxysmal atrial fibrillation (principal); I10 Essential (primary) hypertension | CPT/HCPCS: 93005; 99212 ==

== ENCOUNTER 2023-06-01 10:29 | Outpatient (REF) | payer MEDICARE, OTHER, SELFPAY ==
[2023-06-01 10:32] LABS: MANUAL DIFF FLAG NO
[2023-06-01 10:35] LABS: Basophils Absolute Auto 0.1 X10*3/uL (0.0-0.2); Basophils Percent Auto 0.6 % (0-2); Eosinophils Absolute Auto 0.3 X10*3/uL (0.0-0.4); Eosinophils Percent Auto 3.2 % (0-4); Hemoglobin 13.8 g/dl (14.0-18.0); Imm Gran Abs Auto 0.02 X10*3/uL (0.00-0.03); Imm Gran Pct Auto 0.2 % (0.0-0.4); Lymphocytes Absolute Auto 2.9 X10*3/uL (1.2-4.9); Lymphocytes Percent Auto 34.8 % (20-40); Mean Corpuscular HGB Conc 32.9 g/dl (31.0-36.0); Mean Corpuscular Hemoglobin 29.6 pg (27.0-33.0); Mean Corpuscular Volume 90.1 fL (80.0-98.0); Mean Platelet Volume 10.4 fL (9.4-12.4); Monocytes Absolute Auto 0.9 X10*3/uL (0.1-1.2); Monocytes Percent Auto 10.8 % (2-11); Neutrophils Absolute Auto 4.3 x10*3/uL (2.0-8.3); Neutrophils Percent Auto 50.4 % (45-73); Platelet Count 207 X10*3/uL (160-400); Red Blood Count 4.66 X10*6/uL (4.60-5.80); Red Cell Distribution Width 12.5 % (11.0-16.0); White Blood Count 8.4 X10*3/uL (4.8-10.8)
[2023-06-01 10:47] LABS: Estimated Average Glucose 114 mg/dL; Hemoglobin A1c % 5.6 %
[2023-06-01 10:55] LABS: Alanine Aminotransferase 21 U/L (0-40); Alkaline Phosphatase 84 U/L (39-117); Anion Gap 11 (12-20); Aspartate Amino Transferase 21 U/L (5-37); Bilirubin Total 0.7 mg/dL (0.0-1.0); Blood Urea Nitrogen 21 mg/dL (9-16); Calcium 9.5 mg/dL (8.4-10.2); Carbon Dioxide 28 mmol/L (22-29); Chloride 107 mmol/L (96-108); Cholesterol 124 mg/dL; Estimated Glomerular Filt Rate > 60; Glucose Fasting 118 mg/dL (60-99); HDL Cholesterol 39 mg/dL; LDL Cholesterol Calculated 67 mg/dl; Potassium 4.5 mmol/L (3.3-5.1); Sodium 141 mmol/L (135-145); Total Protein 7.6 g/dL (6.5-8.0); Triglycerides 94 mg/dL
[2023-06-01 11:10] LABS: PSA,Total (Free>4and<10) 0.26 ng/mL (0.00-4.00)
== END 2023-06-01 10:30 | disposition home or self-care (01) ==
LOC: HO.LNP 10:29
PROVIDERS: PCP Internal Medicine; Visit Provider Internal Medicine
DX: Z12.5 Encounter for screening for malignant neoplasm of prostate (principal); I10 Essential (primary) hypertension; R73.03 Prediabetes
CPT/HCPCS: 80053; 80061; 83036; 84153; 85025

== ENCOUNTER 2023-06-04 10:38 | Outpatient (REF) | payer MEDICARE, OTHER, SELFPAY ==
[2023-06-04 10:58] LABS: Appearance Urine Clear; Color Urine Yellow; Glucose Urine UA Negative (Negative); Leukocyte Esterase Urine Negative (Negative); Nitrite Urine Negative (Negative); PH 5.5 (5.0-9.0); Specific Gravity - Urine 1.015 (1.005-1.025); Urine Blood Negative (Negative); Urine Ketones Negative (Negative); Urine Protein Negative (Neg-Trace)
[2023-06-04 11:01] LABS: Bacteria Urine None Seen (None Seen); Hyaline Casts Urine 0-2 /LPF (0-2); RBC Urine 0-2 /HPF (0-2); Squamous Epithelial Cell Urine 0-2 /HPF (0-2); WBC Urine 0-5 /HPF (0-5)
[2023-06-04 11:20] LABS: Creatinine Urine 75.97 mg/dL; Microalbumin Urine < 5.0 mg/L
== END 2023-06-04 10:39 | disposition home or self-care (01) ==
LOC: HO.LNP 10:38
PROVIDERS: Visit Provider Internal Medicine
DX: I10 Essential (primary) hypertension (principal); R73.03 Prediabetes
CPT/HCPCS: 81001; 82043

== ENCOUNTER → 2023-07-27 08:48 | Outpatient (BNVA) | payer MEDICARE, OTHER, SELFPAY | PROVIDERS: Visit Provider Internal Medicine Cardiovascular Disease ==

== ENCOUNTER 2023-12-04 08:29 | Outpatient (REF) | payer MEDICARE, OTHER, SELFPAY ==
[2023-12-04 11:02] LABS: Estimated Average Glucose 111 mg/dL; Hemoglobin A1c % 5.5 % (<6.0)
[2023-12-04 11:10] LABS: Alanine Aminotransferase 19 U/L (0-40); Albumin Level 3.9 g/dL (3.5-5.0); Alkaline Phosphatase 83 U/L (39-117); Aspartate Amino Transferase 20 U/L (5-37); Bilirubin Direct 0.3 mg/dL (0.0-0.5); Bilirubin Total 0.7 mg/dL (0.0-1.0); Cholesterol 126 mg/dL (<200); Glucose Fasting 122 mg/dL (60-99); HDL Cholesterol 33 mg/dL (>40); LDL Cholesterol Calculated 71 mg/dL (<100); Total Protein 7.6 g/dL (6.5-8.0); Triglycerides 110 mg/dL (<150)
[2023-12-04 13:17] LABS: Reflex LDLD? No
== END 2023-12-04 08:30 | disposition home or self-care (01) ==
LOC: HO.10HDL 08:29
PROVIDERS: Visit Provider Internal Medicine
DX: R73.03 Prediabetes (principal); E78.2 Mixed hyperlipidemia
CPT/HCPCS: 36415; 80061; 80076; 82947; 83036

== ENCOUNTER 2024-01-02 14:42 | Outpatient (AMB) | payer MEDICARE, OTHER, SELFPAY ==
--- NOTE | 2024-01-02 14:53 | MHC.OFFVIS ---
Intake Vital Signs 01/02/24 14:57 Height 6 ft 2 in Weight 338 lb 6 oz BMI 43.4 BP 150/80 H Blood Pressure Location Lt brachial Position Sitting Intake Visit Reasons: Posterior anal fissure, bleeding, re-evaluate Intake Note: Patient is seen in office for re evaluation of anal fissure. Pt c/o: sore, tender in the area, constipated on and off, hard stool, straining, bleeding when wiping, denies any other concerns Nursing Home Manager Required: No Accompanied by: Self / Same As Patient Allergies grass pollen-nisha, standard [Grass Pollen-Nisha,Std] Allergy (Mild, Verified 01/02/24 14:55) Unknown pollen extracts [POLLEN] Allergy (Mild, Verified 01/02/24 14:55) Unknown zolpidem [Ambien] Allergy (Unknown, Verified 01/02/24 14:55) Unknown house dust Allergy (Verified 01/02/24 14:55) Unknown environmental allergies Adverse Reaction (Verified 01/02/24 14:55) Sinus Inflammation Medication List - Last Reconciled 01/02/24 by Kunal Alonzo MD atorvastatin 20 mg PO DAILY celecoxib 200 mg PO DAILY chair, wheel (Wheel chair) As directed chair, wheel (Wheel chair) As directed docusate sodium (Colace) 100 mg PO DAILY flecainide 100 mg PO Q12H gabapentin 300 mg PO BEDTIME lisinopril 20 mg PO DAILY metoprolol succinate ER 50 mg PO DAILY multivitamin 1 tab PO DAILY psyllium husk (Metamucil) 1 tsp PO DAILY rivaroxaban (Xarelto) 20 mg PO QPM 90 days tramadol 50 mg PO Q8H PRN triamcinolone acetonide 0.5% appl topical HPI Posterior anal fissure, bleeding, re-evaluate HPI Details I had seen him last week because of a posterior anal fissure. These seemed to have healed on its own He says that he has been noticing small amounts of blood on wiping recently. He denies any pain with bowel movements. He does admit that he has very regular bowel movements and often times as hard stools. [facility] Medical History (Updated 01/02/24 @ 15:08 by Kunal Alonzo MD) Bleeding hemorrhoids HTN (hypertension) Acute knee pain PAF (paroxysmal atrial fibrillation) Surgical History Hx of foot surgery History of tonsillectomy and adenoidectomy History of deviated nasal septum Hx of cholecystectomy History of mandibular surgery Family History Father CVD (cardiovascular disease) Mother No problems noted. Social History Alcohol intake: never Patient Tobacco Use Status: Never used Tobacco Current occupational status: retired Review of Systems Const Denies chills and Denies fever(s) Card Denies chest pain, Denies dyspnea and Denies dyspnea on exertion Resp Denies cough, Denies dyspnea and Denies dyspnea on exertion GI Reports hematochezia, Denies change in bowel habits and Reports constipation Denies hematuria and Denies difficulty urinating Musc Denies back pain and Denies limited range of motion Neuro Denies focal weakness and Denies convulsions Psych Denies depression and Denies mood swings Physical Exam Vital Signs: Last Vital Signs BP 150/80 H 01/02/24 14:57 BMI result Body Mass Index 43.4 Const Other: Morbidly obese General: comfortable and no acute distress Orientation/consciousness: patient oriented x3 Neck Neck: Yes no lymphadenopathy Resp Auscultation: clear to auscultation bilaterally Cardio Rhythm: regular rhythm GI Other: No perianal lesions on rectal exam, anoscopy done does not reveal any anal fissure Palpation (GI): Soft to palpation, nontender and no guarding Neuro General: patient oriented x3 Office Procedures Anoscopy He was in owen-knife position. The anoscope was gently inserted. A full examination of the anal canal was done. He had multiple bulky internal and external hemorrhoids on both the left and right side. He had no anal fissure. There were no ulcers or any bleeding. He had good sphincter tone. There were no induration on digital exam [id number] Assessment & Plan Assessment & Plan (1) Bleeding hemorrhoids: Code(s): K64.9 - Unspecified hemorrhoids Plan: He describes seeing small amounts of blood on wiping. He does have internal external hemorrhoids which are the likely source of his bleeding. He had a colonoscopy last year with Dr. Sanchez and I do not feel that he needs a repeat colonoscopy at this time He admits to constipation with hard stools. He is also on anticoagulation for AFib. I explained to him that these can cause his hemorrhoids to bleed I have started him on Metamucil as well as Colace. I told him to come back to the office if he has any concerns down the line. Medications: New psyllium husk (Metamucil) mix into at least 4 oz water or juice before administering 1 tsp PO DAILY 660 grams 0RF docusate sodium (Colace) 100 mg PO DAILY 60 caps 2RF Coding Level of Care Code Est Pt Level 3 (85345) Diagnoses Bleeding hemorrhoids K64.9 CPT Codes Details - CPT: 74545-[id number] ([id number])
[2024-01-02 14:57] VITALS: BP 150/80; BMI 43.4
== END 2024-01-02 15:15 | disposition home or self-care (01) ==
PROVIDERS: PCP Internal Medicine; Visit Provider Surgery
DX: K64.9 Unspecified hemorrhoids (principal)
CPT/HCPCS: 46600; 99213

== ENCOUNTER → 2024-01-02 14:42 | Outpatient (BNVA) | payer MEDICARE, OTHER, SELFPAY | PROVIDERS: PCP Internal Medicine; Visit Provider Surgery | DX: K60.2 Anal fissure, unspecified (principal); K64.9 Unspecified hemorrhoids; Z90.49 Acquired absence of other specified parts of digestive tract; Z99.3 Dependence on wheelchair | CPT/HCPCS: 46600; 99212 ==

== ENCOUNTER 2024-01-31 08:22 | Outpatient (AMB) | payer MEDICARE, OTHER, SELFPAY ==
[2024-01-31 08:25] VITALS: BP 120/82; PULSE 57; BMI 43.1
--- NOTE | 2024-01-31 08:25 | A.OFFVIS_ITS ---
Intake Vital Signs 01/31/24 08:25 Height 6 ft 2 in Weight 335 lb 8.697 oz BMI 43.1 BP 120/82 Blood Pressure Location Rt brachial Position Sitting Pulse 57 Pulse Source Monitor Intake Visit Reasons: 1 yr f/up w/ ekg Insole Department Worker Required: No Allergies grass pollen-nisha, standard [Grass Pollen-Nisha,Std] Allergy (Mild, Verified 01/31/24 08:27) Unknown pollen extracts [POLLEN] Allergy (Mild, Verified 01/31/24 08:27) Unknown zolpidem [Ambien] Allergy (Unknown, Verified 01/31/24 08:27) Unknown house dust Allergy (Verified 01/31/24 08:27) Unknown environmental allergies Adverse Reaction (Verified 01/31/24 08:27) Sinus Inflammation Medication List - Last Reconciled 01/31/24 by Lucas Chris MD atorvastatin 20 mg PO DAILY celecoxib 200 mg PO DAILY chair, wheel (Wheel chair) As directed chair, wheel (Wheel chair) As directed docusate sodium (Colace) 100 mg PO DAILY flecainide 100 mg PO Q12H gabapentin 300 mg PO BEDTIME lisinopril 20 mg PO DAILY metoprolol succinate ER 50 mg PO DAILY multivitamin 1 tab PO DAILY psyllium husk (Metamucil) 1 tsp PO DAILY rivaroxaban (Xarelto) 20 mg PO QPM 90 days tramadol 50 mg PO Q8H PRN triamcinolone acetonide 0.5% appl topical HPI HPI Comments History of Present Illness Details Mahin comes for follow-up. He continues to have issues with back pain and neck pain which limits his activity level. He has not been able to lose weight. Takes all his medications. Denies any exertional chest pain or shortness of breath. Denies any prolonged palpitation irregular heartbeat. No bleeding issues or neurologic events. Uses CPAP regularly. Blood pressure is generally well controlled. [facility] Medical History Bleeding hemorrhoids HTN (hypertension) Acute knee pain PAF (paroxysmal atrial fibrillation) Surgical History Hx of foot surgery History of tonsillectomy and adenoidectomy History of deviated nasal septum Hx of cholecystectomy History of mandibular surgery Family History Father CVD (cardiovascular disease) Mother No problems noted. Social History Alcohol intake: never Patient Tobacco Use Status: Never used Tobacco Current occupational status: retired Review of Systems Const Denies chills, Denies fatigue, Denies fever(s), Denies frequent falls, Denies weakness, Denies weight gain and Denies weight loss ENT Reports dizziness Card Denies chest pain, Denies chest pain at rest, Denies chest pain with activity, Denies rapid heart rate, Denies pedal edema, Denies edema, Denies leg edema, Denies lightheadedness, Denies palpitations, Denies dyspnea, Denies dyspnea on exertion and Denies orthopnea Resp Denies cough, Denies dyspnea and Denies dyspnea on exertion GI Denies hematochezia and Denies change in stool character Musc Denies abnormal gait, Reports limited range of motion, Reports muscle cramps, Denies muscle weakness, Denies numbness, Denies radiating pain into limb, Denies stiffness and Denies tingling Neuro Denies abnormal gait, Reports dizziness, Denies frequent falls, Denies numbness, Denies tingling and Denies weakness Endo Denies fatigue and Denies palpitations Physical Exam Vital Signs: Last Vital Signs Pulse 57 01/31/24 08:25 BP 120/82 01/31/24 08:25 BMI result Body Mass Index 43.1 Const General: cooperative, healthy appearing, no acute distress, alert and awake Orientation/consciousness: patient oriented x3 Neck Neck: Yes normal visual inspection and Yes no JVD Carotids: carotid upstroke abnormal Resp Effort & Inspection: normal respiratory effort, able to speak in complete sentences and not labored Auscultation: clear to auscultation bilaterally, no crackles, no rales, no rhonchi and no wheezes Cardio Rate: regular rate Rhythm: regular rhythm Heart sounds: S1 normal heart sound present and S2 normal heart sound present Peripheral pulses: Peripheral pulses 2+ throughout GI Inspection: Yes normal to inspection Neuro General: patient oriented x3 Extrem General: Yes normal to inspection and No edema Office Procedures EKG Details: EKG shows normal sinus rhythm with left axis deviation with LVH with left anterior fascicular block, unchanged from before [id number], Complete Assessment & Plan Assessment & Plan (1) PAF (paroxysmal atrial fibrillation): Code(s): I48.0 - Paroxysmal atrial fibrillation Plan: Highly symptomatic paroxysmal atrial fibrillation for years which has remained suppressed on antiarrhythmic drug therapy flecainide. He is done very well with rhythm control approach. Will continue pursue rhythm control approach. Continue flecainide therapy. Will need concomitant metoprolol therapy. This was discussed with him. Advised to call me with any new exertional symptoms that may suggest coronary artery disease that may require further workup. Follow-up echocardiogram in 1 year's time. Continue participate in aggressive weight loss program. Continue aggressive blood pressure control at risk factor modification. Continue CPAP therapy. Semi annual renal function test should be pursued. (2) HTN (hypertension): Code(s): I10 - Essential (primary) hypertension Plan: Hypertension which is currently well optimized advised to monitor blood pressure at home maintain a log. Goal blood pressure less than 130/84 at all times. Continue participate in heart healthy lifestyle long with low-salt diet. Continue CPAP therapy. Follow up in the clinic in 1 year's time, sooner p.r.n.. Thank you for allowing me to partake in his care Coding Level of Care Code Est Pt Level 4 (39095) Diagnoses PAF (paroxysmal atrial fibrillation) I48.0 HTN (hypertension) I10 CPT Codes EKG - CPT: 09833-[id number], Complete ([id number])
== END 2024-01-31 08:52 | disposition home or self-care (01) ==
PROVIDERS: PCP Internal Medicine; Visit Provider Internal Medicine Cardiovascular Disease
DX: I48.0 Paroxysmal atrial fibrillation (principal); I10 Essential (primary) hypertension
CPT/HCPCS: 93010; 99214

== ENCOUNTER → 2024-01-31 08:22 | Outpatient (BNVA) | payer MEDICARE, OTHER, SELFPAY | PROVIDERS: Visit Provider Internal Medicine Cardiovascular Disease | DX: I48.0 Paroxysmal atrial fibrillation (principal); I10 Essential (primary) hypertension; R00.1 Bradycardia, unspecified; I51.7 Cardiomegaly | CPT/HCPCS: 93005; 99212 ==

== ENCOUNTER 2024-02-23 09:21 | Outpatient (AMB) | payer MEDICARE, OTHER, SELFPAY ==
[2024-02-23 10:01] VITALS: BP 102/72; PULSE 70; TEMP 36.7; O2SAT 95; BMI 43.6
--- NOTE | 2024-02-23 10:01 | MHC.OFFWIV ---
Intake Vital Signs 02/23/24 10:01 Height 6 ft 2 in Weight 340 lb BMI 43.6 BP 102/72 Blood Pressure Location Lt brachial Position Sitting Pulse 70 Pulse Source Pulse Oximeter Temp 98.1 F Temp Source Oral Pulse Oximetry (%) 95 Oxygen Delivery Method Room Air Intake Visit Reasons: EST/sinus pressure (lobby) Intake Note: Pt is here today c/o sinus pressure and coughing up mucus started yesterday Patient Tobacco Use Status: Never used Tobacco Allergies grass pollen-nisha, standard [Grass Pollen-Nisha,Std] Allergy (Mild, Verified 02/23/24 10:38) Unknown pollen extracts [POLLEN] Allergy (Mild, Verified 02/23/24 10:38) Unknown zolpidem [Ambien] Allergy (Unknown, Verified 02/23/24 10:38) Unknown house dust Allergy (Verified 02/23/24 10:38) Unknown environmental allergies Adverse Reaction (Verified 02/23/24 10:38) Sinus Inflammation Medication List - Last Reconciled 02/23/24 by MARIBELL SaucedoP- atorvastatin 20 mg PO DAILY celecoxib 200 mg PO DAILY chair, wheel (Wheel chair) As directed chair, wheel (Wheel chair) As directed docusate sodium (Colace) 100 mg PO DAILY flecainide 100 mg PO Q12H gabapentin 300 mg PO BEDTIME lisinopril 20 mg PO DAILY metoprolol succinate ER 50 mg PO DAILY multivitamin 1 tab PO DAILY psyllium husk (Metamucil) 1 tsp PO DAILY rivaroxaban (Xarelto) 20 mg PO QPM tramadol 50 mg PO Q8H PRN triamcinolone acetonide 0.5% appl topical HPI HPI Comments History of Present Illness Details Here today with complaints right-sided nasal congestion and pressure associated with postnasal drip. Reports annual sinus infections requiring antibiotic and prednisone treatment. He is followed by ENT. He is unable to use his CPAP due to the nasal congestion. He has not tried any at home remedies. Denies fever, chills and any other constitutional symptoms Awake alert NAD Sclera and conjunctiva clear bilat TM intact and clear on left, congested on the right Nares with thick mucoid discharge on the right, turbinates pale, edematous on the right, right frontal and maxillary sinus tenderness MMM, pharynx postnasal drip PFSH Medical History Bleeding hemorrhoids HTN (hypertension) Acute knee pain PAF (paroxysmal atrial fibrillation) Surgical History Hx of foot surgery History of tonsillectomy and adenoidectomy History of deviated nasal septum Hx of cholecystectomy History of mandibular surgery Family History Father CVD (cardiovascular disease) Mother No problems noted. Social History Alcohol intake: never Patient Tobacco Use Status: Never used Tobacco Current occupational status: retired Review of Systems Const All systems reviewed & are unremarkable except as noted in HPI and below Physical Exam Vital Signs: Last Vital Signs Temp 98.1 F 02/23/24 10:01 Pulse 70 02/23/24 10:01 BP 102/72 02/23/24 10:01 Pulse Ox 95 02/23/24 10:01 Oxygen Delivery Method Room Air 02/23/24 10:01 BMI result Body Mass Index 43.6 Assessment & Plan Assessment & Plan (1) Acute bacterial sinusitis: Code(s): J01.90 - Acute sinusitis, unspecified; B96.89 - Other specified bacterial agents as the cause of diseases classified elsewhere Plan: . Plan This note is constructed using voice recognition software. While every effort has been made to ensure accuracy in measurement operator, still errors may have been included Sometimes, these errors may affect the content or meaning of the given sentence . Medications: New amoxicillin-pot clavulanate 875-125 mg 1 tab PO BID 7 days 14 tabs 0RF prednisone 20 mg PO DAILY 5 days 5 tabs 0RF Patient Instructions: Take antibiotics and prednisone as directed. Be sure to take with food. Please by Afrin nasal spray and use only for 2 nights to help clear your nasal passage to be able to use her CPAP. Do not use anymore than 2 days as this can cause rebound congestion. You should start to feel better within 48 hours. If you do not or if your symptoms are worse return to the clinic for re-evaluation. Coding Level of Care Code Est Pt Level 3 (66831) Diagnoses Acute bacterial sinusitis J01.90; B96.89
== END 2024-02-23 11:18 | disposition home or self-care (01) ==
PROVIDERS: PCP Internal Medicine; Visit Provider Nurse Practitioner Family
DX: J01.90 Acute sinusitis, unspecified (principal); B96.89 Other specified bacterial agents as the cause of diseases classified elsewhere
CPT/HCPCS: 99213

== ENCOUNTER 2024-03-05 10:48 | Outpatient (AMB) | payer MEDICARE, OTHER, SELFPAY ==
--- NOTE | 2024-03-05 10:51 | MHC.OFFWIV ---
Intake Vital Signs 03/05/24 10:52 Height 6 ft 2 in Weight 340 lb BMI 43.6 BP 120/78 Blood Pressure Location Rt brachial Position Sitting Pulse 76 Pulse Source Pulse Oximeter Temp 98.0 F Temp Source Oral Pulse Oximetry (%) 98 Intake Visit Reasons: EP sinus infection??? Intake Note: pt is here for sinus infection not resolved Patient Tobacco Use Status: Never used Tobacco Allergies grass pollen-nisha, standard [Grass Pollen-Nisha,Std] Allergy (Mild, Verified 03/05/24 10:53) Unknown pollen extracts [POLLEN] Allergy (Mild, Verified 03/05/24 10:53) Unknown zolpidem [Ambien] Allergy (Unknown, Verified 03/05/24 10:53) Unknown house dust Allergy (Verified 03/05/24 10:53) Unknown environmental allergies Adverse Reaction (Verified 03/05/24 10:53) Sinus Inflammation Do you need a note to return to daycare/school/sports/work: No HPI EP sinus infection??? HPI Details 68-year-old male patient presents today for complaint of ongoing right-sided sinus pain/pressure. He was seen here on 02/22 for the same complaint. He reports annual sinus infections requiring antibiotics and prednisone treatment. He is followed by Dr. Sharp at ENT. His nasal congestion has limited him from being able to use CPAP. He was prescribed Augmentin 7 days, and prednisone 5 days when seen here on 02/22. He returns today and reports he typically requires longer duration of treatment in order to effectively treat these sinus infections. He reports ongoing sinus pressure, nasal congestion, postnasal drip, cough. Denies any shortness of breath or fever. He states he started to improve with treatment, however symptoms recurred once he stopped. [facility] Medical History Bleeding hemorrhoids HTN (hypertension) Acute knee pain PAF (paroxysmal atrial fibrillation) Surgical History Hx of foot surgery History of tonsillectomy and adenoidectomy History of deviated nasal septum Hx of cholecystectomy History of mandibular surgery Family History Father CVD (cardiovascular disease) Mother No problems noted. Social History Alcohol intake: never Patient Tobacco Use Status: Never used Tobacco Current occupational status: retired Review of Systems Const All systems reviewed & are unremarkable except as noted in HPI and below Physical Exam Vital Signs: Last Vital Signs Temp 98.0 F 03/05/24 10:52 Pulse 76 03/05/24 10:52 BP 120/78 03/05/24 10:52 Pulse Ox 98 03/05/24 10:52 BMI result Body Mass Index 43.6 Const General: cooperative, healthy appearing, no acute distress, alert and awake Orientation/consciousness: patient oriented x3 HEENT Head: Yes normal to inspection Ears: hearing grossly normal bilaterally Face and sinus: Yes sinus tenderness (right frontal/maxillary) Throat: Yes posterior oropharynx normal Neck Neck: Yes normal visual inspection, Yes no lymphadenopathy and Yes no JVD Carotids: carotid upstroke abnormal Resp Effort & Inspection: normal respiratory effort and able to speak in complete sentences Auscultation: clear to auscultation bilaterally, no crackles, no rales, no rhonchi and no wheezes Cardio Rate: regular rate Rhythm: regular rhythm Heart sounds: S1 normal heart sound present and S2 normal heart sound present Peripheral pulses: Peripheral pulses 2+ throughout GI Inspection: Yes normal to inspection Skin General skin exam: no rashes or lesions noted Neuro General: patient oriented x3 Extrem General: Yes normal to inspection, Yes capillary refill normal, Yes no clubbing, cyanosis or edema and Yes edema Psych Appearance: grossly normal Mental Status: mental status grossly normal Speech and movement: Normal speech and movement present Assessment & Plan Assessment & Plan (1) Acute bacterial sinusitis: Code(s): J01.90 - Acute sinusitis, unspecified; B96.89 - Other specified bacterial agents as the cause of diseases classified elsewhere Plan: I am going to start patient on Doxy as he was recently on Augmentin. He states he thinks he has done well on this previously. I will also start him on another short course of prednisone as this seemed to be helping his symptoms. We reviewed indications, use, and possible side effects of medication. He should continue to follow-up with ENT and PCP as needed. He should return to the clinic if he does not improve with treatment, or if any symptoms worsen/new symptoms develop. He verbalizes understanding and agrees to plan. Medications: New doxycycline hyclate 100 mg PO BID 7 days 14 tabs 0RF B96.89 - Other specified bacterial agents as the cause of diseases classified elsewhere, J01.90 - Acute sinusitis, unspecified prednisone 10 mg orally; Take 4 tabs for two days, then take 3 tabs for two days, then take 2 tabs for two days, then take 1 tab for 2 days. 20 tabs 0RF B96.89 - Other specified bacterial agents as the cause of diseases classified elsewhere, J01.90 - Acute sinusitis, unspecified Coding Level of Care Code Est Pt Level 4 (80285) Diagnoses Acute bacterial sinusitis J01.90; B96.89
[2024-03-05 10:52] VITALS: BP 120/78; PULSE 76; TEMP 36.7; O2SAT 98; BMI 43.6
== END 2024-03-05 11:47 | disposition home or self-care (01) ==
PROVIDERS: PCP Internal Medicine; Visit Provider Nurse Practitioner Family
DX: J01.90 Acute sinusitis, unspecified (principal); B96.89 Other specified bacterial agents as the cause of diseases classified elsewhere
CPT/HCPCS: 99214

== ENCOUNTER 2024-03-27 10:56 | Outpatient (REF) | payer MEDICARE, OTHER, SELFPAY ==
[2024-03-27 11:00] LABS: MANUAL DIFF FLAG NO
[2024-03-27 11:16] LABS: Basophils Absolute Auto 0.1 X10*3/uL (0.0-0.2); Basophils Percent Auto 0.8 % (0-2); Eosinophils Absolute Auto 0.3 X10*3/uL (0.0-0.4); Hematocrit 43.1 % (42.0-52.0); Hemoglobin 14.4 g/dl (14.0-18.0); Imm Gran Abs Auto 0.03 X10*3/uL (0.00-0.03); Imm Gran Pct Auto 0.3 % (0.0-0.4); Lymphocytes Absolute Auto 2.2 X10*3/uL (1.2-4.9); Lymphocytes Percent Auto 25.1 % (20-40); Mean Corpuscular HGB Conc 33.4 g/dl (31.0-36.0); Mean Corpuscular Hemoglobin 30.6 pg (27.0-33.0); Mean Corpuscular Volume 91.5 fL (80.0-98.0); Mean Platelet Volume 10.5 fL (9.4-12.4); Monocytes Absolute Auto 1.2 X10*3/uL (0.1-1.2); Monocytes Percent Auto 13.4 % (2-11); Neutrophils Percent Auto 57.4 % (45-73); Platelet Count 199 X10*3/uL (160-400); Red Blood Count 4.71 X10*6/uL (4.60-5.80); White Blood Count 8.7 X10*3/uL (4.8-10.8)
[2024-03-27 11:32] LABS: Anion Gap 12 (12-20); Blood Urea Nitrogen 18 mg/dL (9-16); Calcium 9.6 mg/dL (8.4-10.2); Carbon Dioxide 28 mmol/L (22-29); Chloride 103 mmol/L (96-108); Estimated Glomerular Filt Rate > 60; Glucose Random 128 mg/dL (60-115); Potassium 4.4 mmol/L (3.3-5.1); Sodium 139 mmol/L (135-145)
[2024-03-27 11:45] LABS: Estimated Average Glucose 120 mg/dL; Hemoglobin A1C 150.4195 umol/L; Hemoglobin A1c % 5.8 % (<6.0)
== END 2024-03-27 10:57 | disposition home or self-care (01) ==
LOC: HO.LNP 10:56
PROVIDERS: Visit Provider Internal Medicine
DX: I10 Essential (primary) hypertension (principal); R73.09 Other abnormal glucose
CPT/HCPCS: 80048; 83036; 85025

== ENCOUNTER 2024-07-03 11:01 | Outpatient (REF) | payer MEDICARE, OTHER, SELFPAY ==
[2024-07-03 11:08] LABS: MANUAL DIFF FLAG NO
[2024-07-03 11:27] LABS: Appearance Urine Clear; Color Urine Yellow; Glucose Urine UA Negative (Negative); Leukocyte Esterase Urine Negative (Negative); Nitrite Urine Negative (Negative); PH 5.5 (5.0-9.0); Urine Blood Negative (Negative); Urine Ketones Negative (Negative); Urine Protein Negative (Neg-Trace)
[2024-07-03 11:34] LABS: Bacteria Urine None Seen (None Seen); Hyaline Casts Urine 0-2 /LPF (0-2); RBC Urine 0-2 /HPF (0-2); Squamous Epithelial Cell Urine 0-2 /HPF (0-2); WBC Urine 0-5 /HPF (0-5)
[2024-07-03 11:37] LABS: Basophils Absolute Auto 0.1 X10*3/uL (0.0-0.2); Basophils Percent Auto 0.8 % (0-2); Eosinophils Absolute Auto 0.3 X10*3/uL (0.0-0.4); Eosinophils Percent Auto 3.1 % (0-4); Hematocrit 42.1 % (42.0-52.0); Hemoglobin 13.7 g/dl (14.0-18.0); Imm Gran Abs Auto 0.02 X10*3/uL (0.00-0.03); Imm Gran Pct Auto 0.2 % (0.0-0.4); Lymphocytes Absolute Auto 2.7 X10*3/uL (1.2-4.9); Mean Corpuscular HGB Conc 32.5 g/dl (31.0-36.0); Mean Corpuscular Volume 92.3 fL (80.0-98.0); Mean Platelet Volume 10.6 fL (9.4-12.4); Monocytes Percent Auto 11.9 % (2-11); Neutrophils Absolute Auto 4.4 x10*3/uL (2.0-8.3); Platelet Count 199 X10*3/uL (160-400); Red Blood Count 4.56 X10*6/uL (4.60-5.80); Red Cell Distribution Width 12.2 % (11.0-16.0); White Blood Count 8.5 X10*3/uL (4.8-10.8)
[2024-07-03 11:47] LABS: Estimated Average Glucose 114 mg/dL; Hemoglobin A1c % 5.6 % (<6.0); Total Hemoglobin (HGBA1C) 3446.2495 umol/L
[2024-07-03 11:56] LABS: Alanine Aminotransferase 20 U/L (0-40); Albumin Level 3.9 g/dL (3.5-5.0); Alkaline Phosphatase 80 U/L (39-117); Anion Gap 11 (12-20); Aspartate Amino Transferase 22 U/L (5-37); Bilirubin Total 0.7 mg/dL (0.0-1.0); Blood Urea Nitrogen 16 mg/dL (9-16); Calcium 9.2 mg/dL (8.4-10.2); Carbon Dioxide 28 mmol/L (22-29); Chloride 105 mmol/L (96-108); Cholesterol 126 mg/dL (<200); Estimated Glomerular Filt Rate > 60; Glucose Fasting 110 mg/dL (60-99); HDL Cholesterol 38 mg/dL (>40); LDL Cholesterol Calculated 68 mg/dL (<100); Potassium 4.2 mmol/L (3.3-5.1); Sodium 140 mmol/L (135-145); Total Protein 7.4 g/dL (6.5-8.0); Triglycerides 103 mg/dL (<150)
[2024-07-03 12:14] LABS: PSA,Total (Free>4and<10) 0.31 ng/mL (0.00-4.00)
[2024-07-03 12:27] LABS: Creatinine Urine 52.54 mg/dL; Microalbumin Urine < 5.0 mg/L
== END 2024-07-03 11:02 | disposition home or self-care (01) ==
LOC: HO.LNP 11:01
PROVIDERS: Visit Provider Internal Medicine
DX: E78.2 Mixed hyperlipidemia (principal); Z12.5 Encounter for screening for malignant neoplasm of prostate; I10 Essential (primary) hypertension; R73.09 Other abnormal glucose
CPT/HCPCS: 80053; 80061; 81001; 82043; 82570; 83036; 84153; 85025

== ENCOUNTER → 2024-07-25 08:34 | Outpatient (BNVA) | payer MEDICARE, OTHER, SELFPAY | PROVIDERS: PCP Internal Medicine; Visit Provider Internal Medicine Cardiovascular Disease ==

== ENCOUNTER 2024-07-31 14:13 | Outpatient (AMB) | payer MEDICARE, OTHER, SELFPAY ==
--- NOTE | 2024-07-31 14:21 | MHC.OFFWIV ---
Intake Vital Signs 07/31/24 14:22 Height 6 ft 2 in Weight 330 lb BMI 42.4 BP 122/70 Blood Pressure Location Lt brachial Position Sitting Pulse 59 Pulse Source Pulse Oximeter Pulse Oximetry (%) 98 Oxygen Delivery Method Room Air Intake Visit Reasons: EP Sinus congestion Intake Note: Patient here for sinus pressure, headache which has been going on for about 1 week. Patient Tobacco Use Status: Never used Tobacco Allergies grass pollen-nisha, standard [Grass Pollen-Nisha,Std] Allergy (Mild, Verified 07/31/24 14:23) Unknown pollen extracts [POLLEN] Allergy (Mild, Verified 07/31/24 14:23) Unknown zolpidem [Ambien] Allergy (Unknown, Verified 07/31/24 14:23) Unknown house dust Allergy (Verified 07/31/24 14:23) Unknown environmental allergies Adverse Reaction (Verified 07/31/24 14:23) Sinus Inflammation Do you need a note to return to daycare/school/sports/work: No HPI HPI Comments History of Present Illness Details Patient is a 68-year-old male complaining of 7 days of sinus pressure, headache, increased mucus with breathe and can not use his CPAP machine as well as some head congestion. He denies any fevers or. He states he did try Coricidin but it was not helpful, he did not test himself for COVID. He does not use a Neti pot or Flonase for his sinus infections because they never seem to help him. He tells me he usually gets 1 sinus infection a year and he needs antibiotics for at least 7 days for it to work. [facility] Medical History Bleeding hemorrhoids HTN (hypertension) Acute knee pain PAF (paroxysmal atrial fibrillation) Surgical History Hx of foot surgery History of tonsillectomy and adenoidectomy History of deviated nasal septum Hx of cholecystectomy History of mandibular surgery Family History Father CVD (cardiovascular disease) Mother No problems noted. Social History Alcohol intake: never Patient Tobacco Use Status: Never used Tobacco Current occupational status: retired Review of Systems Const All systems reviewed & are unremarkable except as noted in HPI and below Physical Exam Vital Signs: Last Vital Signs Pulse 59 07/31/24 14:22 BP 122/70 07/31/24 14:22 Pulse Ox 98 07/31/24 14:22 Oxygen Delivery Method Room Air 07/31/24 14:22 BMI result Body Mass Index 42.4 Const General: cooperative, healthy appearing, comfortable and no acute distress Orientation/consciousness: patient oriented x3 Limitations: no limitations HEENT Head: Yes normal to inspection Ears: hearing grossly normal bilaterally, external ears normal and TM's normal bilaterally General nose exam: Normal external nose present, Normal nares present and No nasal discharge present Face and sinus: Yes normal facial exam and Yes sinuses nontender Mouth: Normal oral and palatal mucosa present and moist mucous membranes Throat: Yes tonsils normal, No uvula midline (no uvula) and Yes posterior oropharynx abnormal (Erythema) Eyes General: appearance normal, both eyes and all related structures Neck Neck: Yes normal visual inspection Resp Effort & Inspection: normal respiratory effort, able to speak in complete sentences, no respiratory distress, not tachypneic, no tripod positioning and no use of accessory muscles Skin General skin exam: no rashes or lesions noted Neuro General: patient oriented x3 Extrem General: Yes normal to inspection and Yes no clubbing, cyanosis or edema Assessment & Plan Assessment & Plan (1) Acute bacterial sinusitis: Code(s): J01.90 - Acute sinusitis, unspecified; B96.89 - Other specified bacterial agents as the cause of diseases classified elsewhere Plan: As it has been 7 days, we will treat patient with Augmentin as it is likely bacterial. Patient is telling me he needs at least 7 days of antibiotics so I sent 7 days of Augmentin. Recommended he continue to use his Coricidin and at least a saline nasal spray to help with his symptoms. Plan See above Medications: New amoxicillin-pot clavulanate 875-125 mg 1 tab PO Q12H 14 tabs 0RF Coding Level of Care Code New Pt Level 3 (98717) Diagnoses Acute bacterial sinusitis J01.90; B96.89
[2024-07-31 14:22] VITALS: BP 122/70; PULSE 59; O2SAT 98; BMI 42.4
== END 2024-07-31 15:06 | disposition home or self-care (01) ==
PROVIDERS: PCP Internal Medicine; Visit Provider Physician Assistant
DX: J01.90 Acute sinusitis, unspecified (principal); B96.89 Other specified bacterial agents as the cause of diseases classified elsewhere

== ENCOUNTER → 2024-07-31 14:13 | Outpatient (BNVA) | payer MEDICARE, OTHER, SELFPAY | PROVIDERS: PCP Internal Medicine; Visit Provider Physician Assistant | DX: J01.90 Acute sinusitis, unspecified (principal); B96.89 Other specified bacterial agents as the cause of diseases classified elsewhere | CPT/HCPCS: 99202 ==

== ENCOUNTER 2024-08-11 11:07 | Outpatient (AMB) | payer MEDICARE, OTHER, SELFPAY ==
--- NOTE | 2024-08-11 11:36 | MHC.OFFWIV ---
Intake Vital Signs 08/11/24 11:39 Height 6 ft 2 in Weight 330 lb BMI 42.4 BP 124/80 Blood Pressure Location Rt brachial Position Sitting Pulse 60 Pulse Source Pulse Oximeter Pulse Oximetry (%) 93 Oxygen Delivery Method Room Air Intake Visit Reasons: EP Sinus infection not better after abx Intake Note: Patient here for sinus infection that has been present for a few weeks now. Finished antibiotic on . Patient Tobacco Use Status: Never used Tobacco Allergies grass pollen-nisha, standard [Grass Pollen-[place],Std] Allergy (Mild, Verified 08/11/24 11:39) Unknown pollen extracts [POLLEN] Allergy (Mild, Verified 08/11/24 11:39) Unknown zolpidem [Ambien] Allergy (Unknown, Verified 08/11/24 11:39) Unknown house dust Allergy (Verified 08/11/24 11:39) Unknown environmental allergies Adverse Reaction (Verified 08/11/24 11:39) Sinus Inflammation Do you need a note to return to daycare/school/sports/work: No HPI EP Sinus infection not better after abx HPI Details This note is constructed using voice recognition software. While every effort has been made to ensure accuracy, quality inspector errors may have been included. The patient is a 68 year old male who presents to the clinic today with ongoing symptoms of sinus infection after treatment with antibiotics. He notes that he finished his antibiotics on , was treated with Augmentin. He typically follows ear nose and throat and usability specialist but that specialist is retiring, so it is harder to get in for an appointment. He notes that he got slightly better after the antibiotics but the symptoms came back. He denies fever, chills, cough, shortness of breath. He does reports pressure in the frontal area bilaterally. Also had some pressure into his ears bilaterally. [facility] Medical History Bleeding hemorrhoids HTN (hypertension) Acute knee pain PAF (paroxysmal atrial fibrillation) Surgical History Hx of foot surgery History of tonsillectomy and adenoidectomy History of deviated nasal septum Hx of cholecystectomy History of mandibular surgery Family History Father CVD (cardiovascular disease) Mother No problems noted. Social History Alcohol intake: never Patient Tobacco Use Status: Never used Tobacco Current occupational status: retired Review of Systems Const All systems reviewed & are unremarkable except as noted in HPI and below Physical Exam Vital Signs: Last Vital Signs Pulse 60 08/11/24 11:39 BP 124/80 08/11/24 11:39 Pulse Ox 93 08/11/24 11:39 Oxygen Delivery Method Room Air 08/11/24 11:39 BMI result Body Mass Index 42.4 Const General: cooperative, healthy appearing, comfortable and no acute distress Orientation/consciousness: patient oriented x3 Limitations: no limitations HEENT Head: Yes normal to inspection Ears: hearing grossly normal bilaterally, external ears normal and TM's normal bilaterally General nose exam: Normal external nose present, Normal nares present, Abnormal mucous membranes and turbinates present erythematous and Nasal discharge present purulent Face and sinus: Yes normal facial exam and Yes sinus tenderness Mouth: Normal oral and palatal mucosa present and moist mucous membranes Throat: Yes posterior oropharynx normal, Yes tonsils normal and Yes uvula midline Eyes General: appearance normal, both eyes and all related structures Neck Neck: Yes normal visual inspection Resp Effort & Inspection: normal respiratory effort, able to speak in complete sentences, Actively coughing, no respiratory distress, not tachypneic, no tripod positioning and no use of accessory muscles Auscultation: clear to auscultation bilaterally Cardio Rate: regular rate Rhythm: regular rhythm Heart sounds: normal S1 and S2 Skin General skin exam: no rashes or lesions noted Neuro General: patient oriented x3 Extrem General: Yes normal to inspection and Yes no clubbing, cyanosis or edema Assessment & Plan Assessment & Plan (1) Acute bacterial sinusitis: Code(s): J01.90 - Acute sinusitis, unspecified; B96.89 - Other specified bacterial agents as the cause of diseases classified elsewhere Plan: Supportive measures encouraged and reviewed. Advised consideration of sinus rinse if needed. Secondary Antibiotic sent to requested pharmacy, advised patient to take antibiotics until completed and not to stop if feeling better, unless the patient has side effects. Advised patient to follow up with primary care provider or ENT specialist with worsening or failure to resolve. Plan See above for full details and plan. Medications: New doxycycline hyclate 100 mg PO BID 7 days 14 caps 0RF Coding Level of Care Code Est Pt Level 3 (33011) Diagnoses Acute bacterial sinusitis J01.90; B96.89
[2024-08-11 11:39] VITALS: BP 124/80; PULSE 60; O2SAT 93; BMI 42.4
== END 2024-08-11 12:12 | disposition home or self-care (01) ==
PROVIDERS: PCP Internal Medicine; Visit Provider Registered Nurse
DX: J01.90 Acute sinusitis, unspecified (principal); B96.89 Other specified bacterial agents as the cause of diseases classified elsewhere

== ENCOUNTER → 2024-08-11 11:07 | Outpatient (BNVA) | payer MEDICARE, OTHER, SELFPAY | PROVIDERS: PCP Internal Medicine; Visit Provider Registered Nurse | DX: J01.90 Acute sinusitis, unspecified (principal); B96.89 Other specified bacterial agents as the cause of diseases classified elsewhere | CPT/HCPCS: 99212 ==

== ENCOUNTER 2024-09-03 09:59 | Outpatient (AMB) | payer MEDICARE, OTHER, SELFPAY ==
--- NOTE | 2024-09-03 10:07 | AM.OFFWIN_ITS ---
Intake Vital Signs 09/03/24 10:11 Height 6 ft 2 in Weight 330 lb BMI 42.4 BP 126/80 Blood Pressure Location Lt brachial Position Sitting Pulse 78 Pulse Source Pulse Oximeter Temp 98.0 F Temp Source Oral Pulse Oximetry (%) 94 Oxygen Delivery Method Room Air Intake Visit Reasons: EP coughing phlegm Intake Note: Patient here for cough and chest heaviness that has been present for about 1 week. Patient Tobacco Use Status: Never used Tobacco Allergies grass pollen-nisha, standard [Grass Pollen-Nisha,Std] Allergy (Mild, Verified 09/03/24 10:09) Unknown pollen extracts [POLLEN] Allergy (Mild, Verified 09/03/24 10:09) Unknown zolpidem [Ambien] Allergy (Unknown, Verified 09/03/24 10:09) Unknown house dust Allergy (Verified 09/03/24 10:09) Unknown environmental allergies Adverse Reaction (Verified 09/03/24 10:09) Sinus Inflammation Do you need a note to return to daycare/school/sports/work: No HPI HPI Comments History of Present Illness Details The patient is a 68-year-old male presenting with recurrent sinusitis. The patient reports experiencing sinus infections, with this being the third occurrence. The symptoms initially began approximately one month ago and have persisted. Previous treatments included Augmentin and doxycycline without significant relief, leading to a current regimen of cefdinir and prednisone. The patient reports a productive cough with yellow sputum, head congestion, sinus pain, shortness of breath, and wheezing; however, there is no fever present. There is also significant throat soreness and night-time congestion, hindering CPAP use. Despite interventions, symptoms persist, including head congestion that intensifies at night. Ohch-vdj-sbknzdn treatments such as Flonase and saline have been used but were ineffective, due to improper usage. The patient confirms no recent COVID testing, and no other household members are ill. [facility] Medical History Bleeding hemorrhoids HTN (hypertension) Acute knee pain PAF (paroxysmal atrial fibrillation) Surgical History Hx of foot surgery History of tonsillectomy and adenoidectomy History of deviated nasal septum Hx of cholecystectomy History of mandibular surgery Family History Father CVD (cardiovascular disease) Mother No problems noted. Social History Alcohol intake: never Patient Tobacco Use Status: Never used Tobacco Current occupational status: retired Review of Systems Const All systems reviewed & are unremarkable except as noted in HPI and below Physical Exam Vital Signs: Last Vital Signs Temp 98.0 F 09/03/24 10:11 Pulse 78 09/03/24 10:11 BP 126/80 09/03/24 10:11 Pulse Ox 94 09/03/24 10:11 Oxygen Delivery Method Room Air 09/03/24 10:11 BMI result Body Mass Index 42.4 General: Cooperative, healthy appearing, comfortable and no acute distress Orientation/consciousness: Patient oriented x3 Limitations: No limitations Head: Normal to inspection Ears: Hearing grossly normal bilaterally, external ears normal and TM's normal bilaterally Nose: Normal external nose present, Normal nares present and No nasal discharge present Face and sinus: Normal facial exam and Yes sinuses nontender Mouth: Normal oral and palatal mucosa present and moist mucous membranes Throat: Yes tonsils normal, No uvula. Posterior oropharynx erythema Eyes: Appearance normal, both eyes and all related structures Neck: Normal visual inspection Respirtory: Clear to auscultation bilaterally. Normal respiratory effort, able to speak in complete sentences, Actively coughing, no respiratory distress, not tachypneic, no tripod positioning and no use of accessory muscles Cardiovascular: Regular rate and rhythm. Normal S1 and S2 Skin: No rashes or lesions noted Neuro: Patient oriented x3 Extremities: Normal to inspection and Yes no clubbing, cyanosis or edema Assessment & Plan Assessment & Plan (1) Acute bacterial sinusitis: Code(s): J01.90 - Acute sinusitis, unspecified; B96.89 - Other specified bacterial agents as the cause of diseases classified elsewhere Plan: For the management of recurrent sinusitis, the patient will continue with the ongoing treatment regimen of cefdinir and prednisone as prescribed by Dr. Dukes. I advised on the correct technique for using Flonase and saline to improve their effectiveness. The patient was also encouraged to maintain hydration and ensure adequate rest. Given the clinical evaluation indicating no severe infection signs and normal lung sounds, no further diagnostic tests such as COVID or influenza testing or chest x-ray are indicated at this time unless symptoms worsen or new symptoms develop. Coding Level of Care Code New Pt Level 3 (74041) Diagnoses Acute bacterial sinusitis J01.90; B96.89
[2024-09-03 10:11] VITALS: BP 126/80; PULSE 78; TEMP 36.7; O2SAT 94; BMI 42.4
== END 2024-09-03 12:21 | disposition home or self-care (01) ==
PROVIDERS: PCP Internal Medicine; Visit Provider Physician Assistant
DX: J01.90 Acute sinusitis, unspecified (principal); B96.89 Other specified bacterial agents as the cause of diseases classified elsewhere

== ENCOUNTER → 2024-09-03 09:59 | Outpatient (BNVA) | payer MEDICARE, OTHER, SELFPAY | PROVIDERS: PCP Internal Medicine; Visit Provider Physician Assistant | DX: J01.90 Acute sinusitis, unspecified (principal); B96.89 Other specified bacterial agents as the cause of diseases classified elsewhere | CPT/HCPCS: 99212 ==

== ENCOUNTER 2025-01-02 08:26 | Outpatient (AMB) | payer MEDICARE, OTHER, SELFPAY ==
--- OUTSIDE RECORDS SUMMARY | 2025-01-02 08:43 | XMS_ITS ---
Author Organization Blue Acosta MD Address [address] [place], [place] [id number] Care Team Providers Care Palm And Back Forger Name Role Phone Blue Acosta Primary Care [...] Location Date Provider Diagnosis Blue Acosta MD [address] [place] [address] [place] [phone] 07/10/2024 Bule Acosta Essential hypertensi on I10 ; Prediabetes [...] Up: 6 Months, Reason: Provider Name:Blue garrido, 01/09/2025 09:15:00 AM, [address] [place] [address], [address] [place] [address], [phone], Provider Name:Blue garrido, 07/10/2025 07:00:00 AM, [address] [place] [address], Suite [facility], [place], [place], [phone], Provider Name:Blue garrido, 07/16/2025 08:00:00 AM, [address] [place] [address], [address] [place] [address], [phone], Progress Notes * Mahin AMBROCIO GDOB:[birth year] (68 yo M)Acc No.[id number]:07/10/2024 Patient:?Mahin Ambrocio Provider:?Blue Acosta MD :1955???Age:68 Y???Sex:Male Max e:07/10/2024 Address:[address] [place], [place] [id number] Subjective: * Chief Complaints: * ???Review labs * HPI: ???Depression Screening:?PHQ-9?Little interest or pleasure in doing things?Not at all,?Feeling down, depressed, or hopeless?Not at all,?Trouble falling or staying asleep, or sleeping too much?Not at all,?Feeling tired or having little energy?Not at all,?Poor appetite or overeating?Not at all,?Feeling bad about yourself or that you are a failure, or have let yourself or your family down?Not at all,?Trouble concentrating on things, such as reading the newspaper or watching television?Not at all,?Moving or speaking so slowly that other people could have noticed; or the opposite, being so fidgety or restless that you have been moving around a lot more than usual?Not at all,?Thoughts that you would be better off or of hurting yourself in some way?Not at all,?Total Score?0.?Communication Needs:?Communication Needs?Does the patient have a hearing impairment?No,?Does the patient have a vision impairment??Yes,?If yes, what is the vision impairment??Glasses,?Does the patient have a cognition impairment??No.?Fall Risk:?History?Have you had any falls with injury in the past year??No,?Have you had two or more falls in the past year??No.?SDOH Questions:?SDOH Questions?In the past year have you been worried about losing housing??No,?In the past year have you or any family members you live with been unable to get any of the following when it was really needed? Check all that apply:?None.?Symptom(s):? patient is a 68 yo male here for review of recent labs and follow up of chronic issues. * ROS:?General/Constitutional:?Patient denies?chills , fatigue , fever , headache.?ENT:?Patient denies?decreased sense of smell , any loss of taste , sore throat.?Cardiovascular:?Patient denies?chest pain at rest chest pain with exertion.?Gastrointestinal:?Patient denies?abdominal pain change in bowel habits constipation.?Genitourinary:?Patient denies?difficulty urinating difficulty urinating.?Musculoskeletal:?Patient denies?muscle aches.?Peripheral Vascular:?Patient denies?red and blue toes.? * Medical History:? * Surgical History:? * Hospitalization/Major Diagno stic Procedure:? * Family History:?Father: ricco medellin 93 yrs, diagnosed with Diabetes.?Mother: 45 yrs.?2 brother(s) . 2 son(s) . .? Mother in a fire., Denies mental health/substance abuse family history, No pertinent family medical history, No pertinent family medical history, Denies mental health/substance abuse family history, Denies mental health/substance abuse family history. * Social History:?Tobacco Use:?Tobacco Use/Smoking?Patient is a?nonsmoker,?Additional Findings: Tobacco Non-User?Current non-smoker, currently using no form of tobacco.?Drugs/Alcohol:?Alcohol Screen?Did you have a drink containing alcohol in the past year??No,?Points?0,?Interpretation?Negative.?Miscellaneous:?no Caffeine. Children: yes. no Community involvements. Exercise: yes, walks QD half an hour. Home smoke detector use: yes. Housing: renting. Living with: spouse. Marital status: . Occupation: retired. Pets: 1 cat. no Travel outside of the [facility], [place]. * Medications:?TakingGabapenti n 300 MG Capsule 3 capsules qhs Orally [...] MG Tablet 1 tablet Orally Once a dayNot-Taking/PRNMeclizine HCl 25 MG Tablet TAKE 1 TABLET [...] 1 TABLET BY MOUTH EVERY DAY NEEDED Not-Taking/PRN Mupirocin 2 % Ointment 1 application Externally [...] reviewed and reconciled with the patient * Allergies:?amoxil: rashambie n: hallucinationsyes[Allergies Verified] Objective: * Vitals:?Ht: 73, Wt:344, BMI: 45.38, BP:142/86, Repeat BP:145/78 weight is up 3 pounds since 04-08-24. * ???Past Orders: ???Lab:Microalbumin, Random (Order Date - 07/03/2024) (Collection Date - 07/03/2024) ? Value Reference Range ?Creatinine Urine 52.54 - m g/dL ?Microalbumin Urine < 5.0 - mg/L ?Microalbum Creatinine Ratio Ur TNP <30 - ug/mg cr ???Lab:Hemoglobin A1c (Order Date - 07/03/2024) (Collection Date - 07/03/2024) ? Value Reference Range ?Hemoglobin A1c % 5.6 <6. 0 - % ?Estimated Average Glucose 114 - mg/dL ???Lab:Complete Blood Count Auto Diff (Order Date - 07/03/2024) (Collection Date - 07/03/2024) ? Value Reference Range ?White Blood Count 8.5 4. 8-10.8 - X10*3/uL ?Red Blood Count 4.56 L 4.60 -5.80 - X10*6/uL ?Hemoglobin 13.7 L 14.0-18.0 - g/dl ?Hematocrit 42.1 42.0-52.0 - % ?Mean Corpuscular Volume 92.3 80.0-98.0 - fL ?Mean Corpuscular Hemoglobin 30.0 27.0-33.0 - pg ?Mean Corpuscular HGB Conc 32.5 31.0-36.0 - g/dl ?Red Cell Distribution Width 12.2 11.0-16.0 - % ?Platelet Count 199 160-4 00 - X10*3/uL ?Mean Platelet Volume 10.6 9.4-12.4 - fL ?Neutrophils Percent Auto 52.0 45-73 - % ?Imm Gran Pct Auto 0.2 0. 0-0.4 - % ?Lymphocytes Percent Auto 32.0 20-40 - % ?Monocytes Percent Auto 11.9 H 2-11 - % ?Eosinophils Percent Auto 3.1 0-4 - % ?Basophils Percent Auto 0.8 0-2 - % ?NRBC Pct Auto 0.0 0.0-0. 2 - /100WBC ?Neutrophils Absolute Auto 4.4 2.0-8.3 - x10*3/uL ?Imm Gran Abs Auto 0.02 0. 00-0.03 - X10*3/uL ?Lymphocytes Absolute Auto 2.7 1.2-4.9 - X10*3/uL ?Monocytes Absolute Auto 1.0 0.1-1.2 - X10*3/uL ?Eosinophils Absolute Auto 0.3 0.0-0.4 - X10*3/uL ?Basophils Absolute Auto 0.1 0.0-0.2 - X10*3/uL ?NRBC Abs Auto 0.000 0.0-0. 012 - X10*3/uL ???Lab:UA ClnCatch+Micro w/r flx Cult (Order Date - 07/03/2024) (Collection Date - 07/03/2024) ? Value Reference Range ?Color Urine Yellow - ?Appearance Urine Clear - ?PH 5.5 5.0-9.0 - ?Glucose Urine UA Negative Neg ative - mg/dL ?Urine Blood Negative Negative - ?Specific [place] - Urine 1.010 1.005-1.025 - ?Urine Protein Negative Neg-Tr ellis - mg/dL ?Urine Ketones Negative Negati ve - mg/dL ?Nitrite Urine Negative Negati ve - ?Leukocyte Esterase Urine Negative Negative - ?RBC Urine 0-2 0-2 - /HPF ?WBC Urine 0-5 0-5 - /HPF ?Squamous Epithelial Cell Urine 0-2 0-2 - /HPF ?Bacteria Urine None Seen None Seen - ?Hyaline Casts Urine 0-2 0-2 - /LPF ???Lab:Comprehensive [place]. P michelle Fast (Order Date - 07/03/2024) (Collection Date - 07/03/2024) ? Value Reference Range ?Sodium 140 135-145 - mmo l/L ?Bilirubin Total 0.7 0.0- 1.0 - mg/dL ?Aspartate Amino Transferase 22 5-37 - U/L ?Alanine Aminotransferase 20 0-40 - U/L ?Total Protein 7.4 6.5-8. 0 - g/dL ?Albumin Level 3.9 3.5-5. 0 - g/dL ?Alkaline Phosphatase 80 39-117 - U/L ?Potassium 4.2 3.3-5.1 - mmol/L ?Chloride 105 96-108 - mm ol/L ?Carbon Dioxide 28 22-29 - mmol/L ?Anion Gap 11 L 12-20 - ?Blood Urea Nitrogen 16 9-16 - mg/dL ?Creatinine 0.91 0.5-1.4 - mg/dL ?Estimated Glomerular Filt Rate > 60 - ?Glucose Fasting 110 H 60-9 9 - mg/dL ?Calcium 9.2 8.4-10.2 - m g/dL ???Lab:Lipid Panel (Order Da te - 07/03/2024) (Collection Date - 07/03/2024) ? Value Reference Range ?Triglycerides 103 <150 - mg/dL ?Cholesterol 126 <200 - m g/dL ?LDL Cholesterol Calculated 68 <100 - mg/dL ?HDL Cholesterol 38 L >40 - mg/dL ???Lab:PSA,Total (Free>4and< 10) (Order Date - 07/03/2024) (Collection Date - 07/03/2024) ? Value Reference Range ?PSA,Total (Free>4and<10) 0.31 0.00-4.00 - ng/mL * Examination: ???General Examination: ?GENERAL APPEARANCE:? alert, well hydrated, in no distress , male.?HEAD:? normocephalic.?EYES:? BOTH EYES, normal.?EARS:? BOTH EARS, normal.?THROAT:? no erythema, no exudate, pharynx normal.?NECK/THYROID:? no carotid bruit, no cervical lymphadenopathy.?SKIN:? good turgor.?HEART:? no murmurs, rubs, gallops, regular rate and rhythm.?LUNGS:? no wheezes, rales, rhonchi, good air movement, clear to auscultation bilaterally.?ABDOMEN:? soft, nontender, nondistended, no masses palpable.?RECTAL EXAM:? stool guaiac positive, prostate normal.?MALE GENITOURINARY:? circumcised, testes descended bilaterally, no testicular mass, prostate normal.? Assessment: * Assessment: 1.?Essential hypertension - I10 (Primary)?2.?Prediabetes - R73.09?3.?Morbid obesity due to excess calories - E66.01?4.?Guaiac positive stools - R19.5?5.?Mixed hyperlipidemia - E78.2?6.?Colon cancer screening - Z12.11?7.?Depression screening - Z13.31?8.?Paroxysmal atrial fibrillation - I48.0? Plan: * Treatment: 2.?Prediabetes? Notes: is going to try dieting?? 3.?Morbid obesity due to exc ess calories? Notes: hopefully get on diet?? 4.?Guaiac positive stools? Notes: has been evaluated in past. because stools are always positive he has colonoscopy every 5 years?? 5.?Mixed hyperlipidemia? Continue Atorvastatin Calcium Tablet, 20 MG, TAKE 1 TABLET BY MOUTH EVERY DAY.?? Notes: stable, will cntinue current regiment?? 6.?Colon cancer screening? Notes: guaiac negative?? 7.?Depression screening? Notes: negative?? 8.?Paroxysmal atrial fibrill ation? Continue Xarelto Tablet, 20 MG, 1 tablet with food, Orally, Once a day;?Continue Flecainide Acetate Tablet, 100 MG, 1 tablet, Orally, twice a day.?? * Procedure Codes:? * Preventive Medicine:? ??Counseling:?Care goal follow-up plan:?Counseling for abnormal BMI provided?Yes,?Above Normal BMI Follow-up?Giving encouragement to exercise.? * Follow Up:?6 Months * * Sign off status: Completed true * Provider:?Blue Acosta MD Date:?0 07/10/2024 Generated for aNvjot mccall/Janay/eTransmitting on:?01/02/2025 08:43 AM EDT History and Physical Notes * HPI [...] had two or more falls in the year?: No Communication Needs Communication Needs Does the patient have a hearing impairment: No Does the patient have a vision impairmen t?: Yes ?If yes, what is the vision impairment?: Glasses [...]
--- OUTSIDE RECORDS SUMMARY | 2025-01-02 08:43 | XMS_ITS ---
[facility] Organization [facility] Address [address] [place] [address] Care Team Providers Care Curtain Fitter Name Role Phone Blue Acosta MD Primary Care Provider Milli Jimenez Unavailable [phone] Allergies Allergen (clinical drug ingredient) Drug/Non Drug Allergy documented on EMR Reaction Allergy Type Onset Date Status zolpidem Ambien Unknown Drug Allergy Active Adhesive Unknown Allergy Active REASON FOR VISIT Pcp-04/15/24, Post-op Medications Medication SIG (Take, Route, Frequency, Duration) Notes Start Date End Date Status Aspirin 81 MG Once a day Not-T aking Flecainide Acetate 100 MG as directed Orally Active CeleBREX Not-Taking Augmentin Not-Taking Iodosorb Not-Taking MiraLax Active Lisinopril 20 MG as directed Orally Active Metoprolol Succinate ER 50 MG 1 tablet Orally Once a day Active Atorvastatin Calcium 20 MG 1 tablet Orally Once a day Active Culturelle Probiotics - as directed Orally Active Xarelto Active Celecoxib 200 MG 1 capsule with food Orally Once a day Active Gabapentin 300 MG 1 capsule Orally Onc e a day Active Social History Tobacco Use: Social History Observation Description Date Details (start date - stop date) Never Smoker NA - NA Tobacco Use/Smoking Question Answer Notes Are you a: nonsmoker Tobacco use other than smoking: Question Answer Notes Are you an other tobacco user? No Vital Signs Height 6ft3in in 04/29/2024 Weight 314 lbs 04/29/2024 BMI 39.24 kg/m2 04/29/2024 Blood pressure systolic 126 mm Hg 04/29/20 24 Blood pressure diastolic 64 mm Hg 024 Encounters Encounter Location Date Provider Diagnosis [facility] [place] [address] [place] [address] 04/29/2024 Milli Yost Other hammer toe(s) (acquired), left foot M20.42 and Exostosis of toe M89.8X7 Assessments Encounter Date Diagnosis (ICD Code) Assessment Notes Treatment Notes Treatment Clinical Notes Section Notes 04/29/2024 Other hammer toe(s) (acquired), left foot (ICD-10 - M20.42) 04/29/2024 Exostosis of toe (ICD-10 - M89.8X7) Plan Of Treatment Pending Test Test Name Order Date X ray : Foot, left 3V 04/29/2024 Next Appt Details Follow Up: 1 Week, Reason: Procedure Notes * Category Sub-Category Detail Notes Dressing Change: Type: dry sterile monae ssing , a light compressive dressing Progress Notes * Mahin JORGE GDOB:[birth year] (68 yo M)Acc No.[id number]:04/29/2024 Progress Notes Patient:?Mahin Jorge Provider:?Milli Yost DPM :1955???Age:68 Y???Sex:Male Max e:04/29/2024 Address:[address] [place], [place] [id number] Pcp:Blue Acosta MD Subjective: * Chief Complaints: * ???Pcp-04/15/24Post-op * HPI: ???Post-op:?The patient presents for post-op of?Left 2, 4, 5 hammertoe repair and exostectomy left 5th toe.?Date of Surgery?:?04/23/2024 ?Current symptoms include?Pt denies fever, chills, nausea, calf pain, SOB, or increased anxiety, Pt states pain under control.? Pt presents WB in surgical shoe and cane. Pt relates minimal pain without need for medication. * ROS:?General/Constitutional:?Nausea?denies.?Vomiting?denies.?Hunger Thirst?denies.?Loss appetite?denies.?Chills?denies.?Fatigue?denies.?Fever?denies.?Night Sweats?denies.?Unexplained weight loss?denies.?Unexplained weight gain?denies.?HEENTM:?Dentures?denies.?Dizziness?admits.?Glasses/contacts?admits.?Retinopathy?de nies.?Blurred/double vision?denies.?TMJ?denies.?Discharge/drainage?denies.?Implants?denies.?Sore throat?denies.?Dental implants?admits.?Hard of hearing ?denies.?Difficulty chewing/swallowing/speaking?denies.?Nose bleeds?denies.?Sore mouth?denies.?Respiratory:?On Oxygen?denies.?Pneumonia/pleurisy?denies.?Bronchitis?denies.?Emphysema?denies.?C oughing?denies.?Cough blood?denies.?Shortness of breath?denies.?Wheezing?denies.?Cardiovascular:?Pacemaker?denies.?MVP?denies.?WPW?denies.?CHF?denies.?Heart attack?denies.?Septal defect?denies.?Rapid beat?denies.?Chest pain ?denies.?Atrial Fib.?admits.?Murmur/Palpitations?denies.?Gastrointestinal:?Hemorrhoids?denies.?Stomach/Abdominal pain?denies.?Dark blood stool?denies.?Irritable bowel ?denies.?Constipation?denies.?Diarrhea?denies.?Hematology:?Swelling?denies.?Clots?denies.?Varicose Veins?denies.?Bruising?denies.?Bleeding problem?denies.?Genitourinary:?Blood urine?denies.?Frequent/Painfu/urination/bladder control?denies.?Kidney stones?denies.?Infection (UTI)?denies.?Nephropathy?denies.?sex trans dis (STD)?denies.?Prostate?denies.?Musculoskeletal:?Hammertoes?admits.?Bunions?denies.?Back Pain?denies.?Muscle Cramps/ Resting?denies.?Muscle cramps / walking?denies.?Generalized aches and pains?denies.?Weakness?denies.?Integ.:?Sands?denies.?Scars?denies.?Corns/calluses?admits.?Ingrown nails?denies.?Painful nails?admits.?Open Sores?denies.?Rashes?denies.?Neurologic:?Difficulty sleeping?denies.?Brain disorder?denies.?Numbness?denies.?Balance trouble?admits.?Confusion?denies.?Fainting/blackouts?denies.?Tingling?denies.?Tr emors?denies.? * Medical History:? * Surgical History:?jaw surger y uvula removed tonsillectomy and adenoidectomy cholecystectomy foot surgery 03/2013Hammertoe repair left 2nd, 4th, 5th with possible k-wire, Exostectomy left 5th toe 04/23/2024 * Hospitalization/Major Diagno stic Procedure:?Denies Past Hospitalization * Family History:?Mother: dece ased, foot problems.?Father: alive, diagnosed with Family history of arthritis, Diabetic - NIDDM, Unspecified essential hypertension, Unspecified heart disease.?Siblings: hypertension.? * Social History:?Tobacco Use:?Tobacco Use/Smoking?Are you a:?nonsmoker ?Tobacco use other than smoking?Are you an other tobacco user??No ???Miscellaneous:?Caffeine: yes, 1 cup per week. ?Children: yes, 2. ?Exercise: yes, walking. ?Marital status: . ?Occupation: retired. * Medications:?TakingGabapenti n 300 MG Capsule 1 capsule Orally Once a dayCelecoxib 200 MG Capsule 1 capsule with food Orally Once a dayXarelto MiraLax Culturelle Probiotics - Tablet Chewable as directed Orally Atorvastatin Calcium 20 MG Tablet 1 tablet Orally Once a dayMetoprolol Succinate ER 50 MG Tablet Extended Release 24 Hour 1 tablet Orally Once a dayLisinopril 20 MG Tablet as directed Orally Flecainide Acetate 100 MG Tablet as directed Orally Taking Gabapentin 300 MG Capsule 1 capsule Orally Once a dayTaking Celecoxib 200 MG Capsule 1 capsule with food Orally Once a dayTaking Xarelto Taking MiraLax Taking Culturelle Probiotics - Tablet Chewable as directed Orally Taking Atorvastatin Calcium 20 MG Tablet 1 tablet Orally Once a dayTaking Metoprolol Succinate ER 50 MG Tablet Extended Release 24 Hour 1 tablet Orally Once a dayTaking Lisinopril 20 MG Tablet as directed Orally Taking Flecainide Acetate 100 MG Tablet as directed Orally Not-Taking/PRNAspirin 81 MG Once a dayCeleBREX Iodosorb Augmentin Medication List reviewed and reconciled with the patientNot-Taking/PRN Aspirin 81 MG Once a dayNot-Taking/PRN CeleBREX Not-Taking/PRN Iodosorb Not-Taking/PRN Augmentin Medication List reviewed and reconciled with the patient * Allergies:?AdhesiveAmbienyes [Allergies Verified] Objective: * Vitals:?Ht: 6ft3in, Wt:314, BMI:39.24, Shoe size: 10.5, BP:126/64 mm Hg, Ht-cm: 190.5 cm, Wt-k.43 kg. * Examination: ???Dressing: ?APPEARANCE?Clean, dry, and intact, with dry to moist blood present, no malodor.?Dermatologic: ?SURGICAL SITE?Skin and Sutures intact, Incision edges are well aligned and adhered, CFT intact , No signs or symptoms consistent with infection , (+), mild Pain on palpation/ecchymosis/edema, (-), erythema/hematoma/dehiscence/cellulitis.?Orthopedic: ?DIGITAL DEFORMITIES:?alignment of toe is rectus in all plains.?X-Rays - IMAGING REPORT: ?Clinical Indication(s):?Evaluate Biomechanical Deformity.?Views:?3 views of Foot , LEFT , AP , LAT , LO.?Findings:?normal bone and soft tissue density consistent for patients age and sex.?Digits:?show post-op digital alignment anatomic with proper resection of bone, smooth edges, and no bony spicules present, no gas visualized.? Assessment: * Assessment: 1.?Other hammer toe(s) (acqu ired), left foot - M20.42 (Primary)?2.?Exostosis of toe - M89.8X7? Plan: * Treatment: * Procedures:?Dressing Change::?Type:?dry sterile dressing , a light compressive dressing.? * Procedure Codes:?57778 X-RAY EXAM OF LEFT FOOT 3V, Modifiers: 26 , LT * Preventive Medicine:? ??Counseling:?Post-op:?I reviewed with the patient the usual surgical post-op course. The patient is to call with any questions/complications, and will follow-up as scheduled, post-op shoe and limited ambulation, perform ROM (3-4 times a day; 20-25 reps each) exercises at the foot joint and ankle, The Pt. was counseled on the x-rays, continued treatment options, and the importance of following all homecare instructions, discussed and reviewed signs and symptoms of DVT, pt to monitor and call with any concerns, Pt to continue to ice and elevate foot to help with post op swelling and pain.? * Follow Up:?1 Week * Images: * Sign off status: Completed true * Provider:?Milli Yost DPM Date:? Generated for Navjot mccall/Janay/eTransmitting on:?01/02/2025 08:43 AM EDT History and Physical Notes * HPI (History of Present Illness) Category Sub-Category Detail Notes Category Not es Post-op The patient presents for post-op of Left 2, 4, 5 hammertoe repair and exostectomy left 5th toe Pt presents WB in surgical shoe and cane. Pt relates minimal pain without need for medication Current symptoms include Pt denies fever , chills, nausea, calf pain, SOB, or increased anxiety, Pt states pain under control Date of Surgery :: 04/23/2024 Examination Category Sub-Category Detail Notes Category Not es Dermatologic SURGICAL SITE Skin and Sutures intact, Incision edges are well aligned and adhered, CFT intact , No signs or symptoms consistent with infection , (+), mild Pain on palpation/ecchymosis/edema , (-), erythema/hematoma/dehiscen ce/cellulitis Orthopedic DIGITAL DEFORMITIES: alignment o f toe is rectus in all plains X-Rays - IMAGING REPORT Findings: normal b one and soft tissue density consistent for patients age and sex Digits: show post-op digital alignment anatomic with proper resection of bone, smooth edges, and no bony spicules present, no gas visualized Views: 3 views of Foot , LE FT , AP , LAT , LO Clinical Indication(s): Evaluate Biomech anical Deformity Dressing APPEARANCE Clean, dry, and intact, with dry to moist blood present, no malodor
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
--- OUTSIDE RECORDS SUMMARY | 2025-01-02 08:43 | XMS_ITS ---
Author Organization Blue Acosta MD Address [address] [place], [place] [phone] Care Team Providers Care Detective Homicide Squad Name Role Phone Blue Acosta Primary Care Provider Results Component Value Reference Range Notes Complete Blood Count Auto Di ff Reviewed date:07/03/2024 05:03:13 PM Interpretation: Performing Lab:[facility], [address] [place] [phone] Notes/Report: White Blood Count 8.5 4.8-10.8 X10*3/uL [...] NRBC Abs Auto 0.000 0.0-0.012 X10*3/uL Comprehensive Brooks. Panel Fa st Reviewed date:07/03/2024 12:20:41 PM Interpretation: Performing Lab:[facility], [address] [place] [phone] Notes/Report: Sodium 140 135-145 mmol/L Potassium 4.2 3.3-5.1 mmol/L Chloride 105 96-108 mmol/L Carbon Dioxide 28 22-29 mmol/L Anion Gap 11 12-20 Blood Urea Nitrogen 16 9-16 mg/dL Creatinine 0.91 0.5-1.4 mg/dL Estimated Glomerular Filt Rate > 60 NOTE: For -Malaysian individuals, multiply the result by 1.210. Chronic [...] Panel Reviewed date:07/03/2024 12:16:21 PM Interpretation: Performing Lab:[facility], [address] [place] [phone] Notes/Report: Triglycerides 103 <150 mg/dL Desirable Triglyceride: [...] (Free>4and<10) Reviewed date:07/03/2024 12:17:59 PM Interpretation: Performing Lab:[address] [phone] Notes/Report: PSA,Total (Free>4and<10) 0.31 0.00-4.00 ng/mL A [...] Random Reviewed date:07/03/2024 12:30:42 PM Interpretation: Performing Lab:[facility], [address] [place] [phone] Notes/Report: Creatinine Urine 52.54 Microalbumin Urine < 5.0 Microalbum/Creatinine Ratio Ur TNP <30 ug/mg cr Unable to calculate albumin/creatinine ratio due to low microalbumin or creatinine result. Hemoglobin A1c Reviewed date:07/03/2024 12:16:31 PM Interpretation: Performing Lab:[address] [phone] Notes/Report: Hemoglobin A1c % 5.6 <6.0 % [...] average glucose, using the formula of the V5O-Ihxxzrz Average Glucose study (ADAG), Diabetes Care, Vol.31,#8, May. 2007 UA ClnCatch+Micro w/rflx Cul t Reviewed date:07/03/2024 12:27:43 PM Interpretation: Performing Lab:[facility], [address] [place] [phone] Notes/Report: Urine, Clean Catch Color Urine Yellow Appearance Urine Clear PH 5.5 5.0-9.0 Glucose Urine UA Negative Negative mg/dL Urine Blood Negative Negative Specific [place] - Urine 1.010 1.005-1.025 Urine Protein Negative [...] Location Date Provider Diagnosis Blue Acosta MD [address] [place] [address] [address] [place], [place] [phone] 07/03/2024 Blue Acosta Mixed hyperlipidemia E78.2 ; [...] Next Appt Details Provider Name:Blue Arechiga ier, 01/09/2025 09:15:00 AM, [address], [address], [place], [place], [phone], Provider Name:Blue Arechiga ier, 07/10/2025 07:00:00 AM, [address], [address], [place], [place], [phone], Provider Name:Blue Arechiga ier, 07/16/2025 08:00:00 AM, [address], [address], [place], [place], [phone], Progress Notes * Mahin AMBROCIO GDOB:[birth year] (69 yo M)Acc No.[id number]:07/03/2024 Progress Note Patient:?LUISITO Mahin Madan Provider:?Blue Acosta MD :1955???Age:68 Y???Sex:Male Max e:07/03/2024 Address:[address] [place], [place] [phone] Subjective: * Chief Complaints: * ???1. FASTING LABS. * Medical History:? Objective: * Vitals:? Assessment: * Assessment: 1.?Encounter for immunizatio n - Z23 (Primary)???2.?Mixed hyperlipidemia - E78.2???3.?Essential hypertension - I10???4.?Prediabetes - R73.09??? Plan: * Treatment: 2.?Essential hypertension?LAB: Complete Blood Count Auto Diff (Collection Date & Time - 07/03/2024 07:30 AM) ?LAB: Comprehensive Brooks. Panel Fast (Collection Date & Time - 07/03/2024 07:30 AM) ?LAB: Lipid Panel (Collection Date & Time - 07/03/2024 07:30 AM) ?LAB: PSA,Total (Free>4and<10) (Collection Date & Time - 07/03/2024 07:30 AM) ?LAB: Microalbumin, Random (Collection Date & Time - 07/03/2024 07:30 AM) ?LAB: Hemoglobin A1c (Collection Date & Time - 07/03/2024 07:30 AM) ?LAB: UA ClnCatch+Micro w/rflx Cult (Collection Date & Time - 07/03/2024 07:30 AM) 3.?Prediabetes?LAB: Complete Blood Count Auto Diff (Collection Date & Time - 07/03/2024 07:30 AM) ?LAB: Comprehensive Brooks. Panel Fast (Collection Date & Time - 07/03/2024 07:30 AM) ?LAB: Lipid Panel (Collection Date & Time - 07/03/2024 07:30 AM) ?LAB: PSA,Total (Free>4and<10) (Collection Date & Time - 07/03/2024 07:30 AM) ?LAB: Microalbumin, Random (Collection Date & Time - 07/03/2024 07:30 AM) ?LAB: Hemoglobin A1c (Collection Date & Time - 07/03/2024 07:30 AM) ?LAB: UA ClnCatch+Micro w/rflx Cult (Collection Date & Time - 07/03/2024 07:30 AM) * Immunizations:? Fluarix Quadrivalent - 150 : 0.5 mL (Dose No:1) (Route: Intramuscular) given by Sena Warner , Office Staff on Left Deltoid * Procedure Codes:?69725 FLU V AC NO PRSV 4 JOELLE 3 YRS+, G0008 ADMN FLU VAC NO FEE SCHED SAME DAY, 48547 VENIPUNCT, ROUTINE* * * The named appointment provid er may or may not be the originator of this progress note, and it is not deemed complete until electronically signed by the appointment provider. Sign off status: Pending * Provider:?Blue Acosta MD Date:?0 07/03/2024 Generated for Navjot mccall/Janay/eTransmitting on:?01/02/2025 08:43 AM EDT
--- OUTSIDE RECORDS SUMMARY | 2025-01-02 08:43 | XMS_ITS ---
Author Organization Blue Acosta MD Address [address] [place] [phone] Care Team Providers Care Rn Internship Name Role Phone Blue Acosta Primary Care Provider REASON FOR VISIT FASTING LIPIDS Encounters Encounter Location Date Provider Diagnosis Blue Acosta MD [address] [place] [address] [place] [phone] 01/02/2025 Blue Acosta Mixed hyperlipidemia E78.2 and Prediabetes R73.09 Assessments Encounter Date Diagnosis (ICD Code) Assessment Notes Treatment Notes Treatment Clinical Notes Section Notes 01/02/2025 Mixed hyperlipidemia (ICD-10 - E78.2) 01/02/2025 Prediabetes (ICD-10 - R73.09) Plan Of Treatment Pending Test Test Name Order Date Liver Panel 01/02/2025 Glucose Fasting 01/02/2025 Lipid Panel with Reflex 01/02/2025 Hemoglobin A1c 01/02/2025 Next Appt Details Provider Name:Blue garrido, 01/09/2025 09:15:00 AM, [address] [place] [address], [address], [phone], Provider Name:Blue garrido, 07/10/2025 07:00:00 AM, [address] [place] [address], [address], [phone], Provider Name:Blue garrido, 07/16/2025 08:00:00 AM, [address] [place] [address], [address], [phone], Progress Notes * Mahin AMBROCIOOB:[birth year] (69 yo M)Acc No.[id number]:01/02/2025 Progress Note Patient:?Mahin AMBROCIO Provider:?Blue Acosta MD :1955???Age:69 Y???Sex:Male Max e:01/02/2025 Address:[address] [place] [address] Subjective: * Chief Complaints: * ???1. FASTING LIPIDS. * Medical History:? Objective: * Vitals:? Assessment: * Assessment: 1.?Mixed hyperlipidemia - E7 8.2 (Primary)???2.?Prediabetes - R73.09??? Plan: * Treatment: 2.?Prediabetes?LAB: Liver Panel ?LAB: Glucose Fasting ?LAB: Lipid Panel with Reflex ?LAB: Hemoglobin A1c * Procedure Codes:?21986 VENIP UNCT, ROUTINE* * * The named appointment provid er may or may not be the originator of this progress note, and it is not deemed complete until electronically signed by the appointment provider. Sign off status: Pending * Provider:?Blue Acosta MD Date:?0 01/02/2025 Generated for Navjot mccall/Janay/eTransmitting on:?01/02/2025 08:42 AM EDT
--- OUTSIDE RECORDS SUMMARY | 2025-01-02 08:43 | XMS_ITS ---
Author Organization [facility] Address [address] [place] [address] Care Team Providers Care Aids Social Worker Name Role Phone Blue Acosta MD Primary Care Provider Milli Jimenez Unavailable [phone] Allergies Allergen (clinical drug ingredient) Drug/Non Drug Allergy documented on EMR Reaction Allergy Type Onset Date Status zolpidem Ambien Unknown Drug Allergy Active Adhesive Unknown Allergy Active REASON FOR VISIT Post-op Medications Medication SIG (Take, Route, Frequency, Duration) Notes Start Date End Date Status Aspirin 81 MG Once a day Not-T aking Flecainide Acetate 100 MG as directed Orally Active Lisinopril 20 MG as directed Orally Active Metoprolol Succinate ER 50 MG 1 tablet Orally Once a day Active Atorvastatin Calcium 20 MG 1 tablet Orally Once a day Active Celecoxib 200 MG 1 capsule with food Orally Once a day Active Gabapentin 300 MG 1 capsule Orally Onc e a day Active Culturelle Probiotics - as directed Orally Active MiraLax Active Xarelto Active Iodosorb Not-Taking CeleBREX Not-Taking Augmentin Not-Taking Social History Tobacco Use: Social History Observation Description Date Details (start date - stop date) Never Smoker NA - NA Tobacco Use/Smoking Question Answer Notes Are you a: nonsmoker Tobacco use other than smoking: Question Answer Notes Are you an other tobacco user? No Vital Signs Height 6ft3in in 05/20/2024 Weight 315 lbs 05/20/2024 BMI 39.37 kg/m2 05/20/2024 Blood pressure systolic 122 mm Hg 05/20/20 24 Blood pressure diastolic 58 mm Hg 024 Encounters Encounter Location Date Provider Diagnosis [facility] [address] [place] [address] 05/20/2024 Milli Yost Other hammer toe(s) (acquired), left foot M20.42 and Exostosis of toe M89.8X7 Assessments Encounter Date Diagnosis (ICD Code) Assessment Notes Treatment Notes Treatment Clinical Notes Section Notes 05/20/2024 Other hammer toe(s) (acquired), left foot (ICD-10 - M20.42) 05/20/2024 Exostosis of toe (ICD-10 - M89.8X7) Plan Of Treatment Next Appt Details Follow Up: prn, Reason: Progress Notes * Mahin JORGE GDOB:[birth year] (68 yo M)Acc No.[id number]:05/20/2024 PROGRESS NOTES Patient:?Mahin Jorge Madan Provider:?Milli Yost DPM :1955???Age:68 Y???Sex:Male Max e:05/20/2024 [facility] [phone] Pcp:Blue Acosta MD Subjective: * Chief Complaints: * ???Post-op * HPI: ???Post-op:?The patient presents for post-op of?Left 2, 4, 5 hammertoe repair and exostectomy left 5th toe.?Date of Surgery?:?04/23/2024 ?Current symptoms include?Pt denies fever, chills, nausea, calf pain, SOB, or increased anxiety, Pt states pain under control.? Pt presents WB in surgical shoe. Pt relates minimal pain without need for medication, no issues per pt. * ROS:?General/Constitutional:?Nausea?denies, denies, denies.?Vomiting?denies, denies, denies.?Hunger Thirst?denies, denies, denies.?Loss appetite?denies, denies, denies.?Chills?denies, denies, denies.?Fatigue?denies, denies, denies.?Fever?denies, denies, denies.?Night Sweats?denies, denies, denies.?Unexplained weight loss?denies, denies, denies.?Unexplained weight gain?denies, denies, denies.?HEENTM:?Dentures?denies, denies, denies.?Dizziness?admits, admits, admits.?Glasses/contacts?admits, admits, admits.?Retinopathy?denies, denies, denies.?Blurred/double vision?denies, denies, denies.?TMJ?denies, denies, denies.?Discharge/drainage?denies, denies, denies.?Implants?denies, denies, denies.?Sore throat?denies, denies, denies.?Dental implants?admits, admits, admits.?Hard of hearing ?denies, denies, denies.?Difficulty chewing/swallowing/speaking denies, denies, denies.?Nose bleeds?denies, denies, denies.?Sore mouth?denies, denies, denies.?Respiratory:?On Oxygen?denies, denies, denies.?Pneumonia/pleurisy?denies, denies, denies.?Bronchitis?denies, denies, denies.?Emphysema?denies, denies, denies.?Coughing?denies, denies, denies.?Cough blood?denies, denies, denies.?Shortness of breath?denies, denies, denies.?Wheezing?denies, denies, denies.?Cardiovascular:?Pacemaker?denies, denies, denies.?MVP?denies, denies, denies.?WPW?denies, denies, denies.?CHF?denies, denies, denies.?Heart attack?denies, denies, denies.?Septal defect?denies, denies, denies.?Rapid beat denies, denies, denies.?Chest pain ?denies, denies, denies.?Atrial Fib.?admits, admits, admits.?Murmur/Palpitations?denies, denies, denies.?Gastrointestinal:?Hemorrhoids?denies, denies, denies.?Stomach/Abdominal pain?denies, denies, denies.?Dark blood stool?denies, denies, denies.?Irritable bowel ?denies, denies, denies.?Constipation?denies, denies, denies.?Diarrhea?denies, denies, denies.?Hematology:?Swelling?denies, denies, denies.?Clots?denies, denies, denies.?Varicose Veins?denies, denies, denies.?Bruising?denies, denies, denies.?Bleeding problem?denies, denies, denies.?Genitourinary:?Blood urine?denies, denies, denies.?Frequent/Painfu/urination/bladder control?denies, denies, denies.?Kidney stones?denies, denies, denies.?Infection (UTI)?denies, denies, denies.?Nephropathy?denies, denies, denies. sex trans dis (STD)?denies, denies, denies.?Prostate?denies, denies, denies.?Musculoskeletal:?Hammertoes?admits, admits, admits.?Bunions?denies, denies, denies.?Back Pain?denies, denies, denies.?Muscle Cramps/ Resting?denies, denies, denies.?Muscle cramps / walking?denies, denies, denies.?Generalized aches and pains?denies, denies, denies.?Weakness?denies, denies, denies.?Integ.:?Sands?denies, denies, denies.?Scars?denies, denies, denies.?Corns/calluses?admits, admits, admits.?Ingrown nails?denies, denies, denies.?Painful nails?denies,admits,admits.?Open Sores?denies, denies, denies.?Rashes?denies, denies, denies.?Neurologic:?Difficulty sleeping?denies, denies, denies.?Brain disorder?denies, denies, denies.?Numbness?denies, denies, denies.?Balance trouble?admits, admits, admits.?Confusion?denies, denies, denies.?Fainting/blackouts?denies, denies, denies.?Tingling?denies, denies, denies.?Tremors?denies, denies, denies.? * Medical History:? * Surgical History:?jaw surger [...] Allergies:?AdhesiveAmbienyes [Allergies Verified] Objective: * Vitals:?Ht: 6ft3in, Wt:315, BMI:39.37, Shoe size: 10.5, BP:122/58 mm Hg, Ht-cm: 190.5 cm, Wt-k.88 kg. * Examination: ???Dressing: ?APPEARANCE?Clean, dry, and intact.?Dermatologic: ?SURGICAL SITE?Incision edges are well aligned and adhered, CFT intact , No signs or symptoms consistent with infection , ?No??Pain on palpation/NO?ecchymosis/LESS?edema, (-), erythema/hematoma/dehiscence/cellulitis.?Orthopedic: ?DIGITAL DEFORMITIES:?alignment of toe is rectus in all plains.? Assessment: * Assessment: 1.?Other hammer toe(s) (acqu ired), left foot - M20.42 (Primary)?2.?Exostosis of toe - M89.8X7? Plan: * Treatment: * Procedure Codes:? * Preventive Medicine:? ??Counseling:?Post-op:?I reviewed with the patient the usual surgical post-op course. The patient is to call with any questions/complications, and will follow-up as needed, , return to accom firm-soled shoe for stability and support, gradually increase activity to tolerance.? * Follow Up:?prn * Images: * Sign off status: Completed true * Provider:?Milli Yost DPM Date:?03/2024 Generated for Navjot mccall/Janay/Kristy on:?01/02/2025 08:42 AM EDT History and Physical Notes * HPI (History of Present Illness) Category Sub-Category Detail Notes Category Not es Post-op The patient presents for post-op of Left 2, 4, 5 hammertoe repair and exostectomy left 5th toe Pt presents WB in surgical shoe. Pt relates minimal pain without need for medication, no issues per pt Current symptoms include Pt denies fever , chills, nausea, calf pain, SOB, or increased anxiety, Pt states pain under control Date of Surgery :: 04/23/2024 Examination Category Sub-Category Detail Notes Category Not es Dermatologic SURGICAL SITE Incision edges a re well aligned and adhered, CFT intact , No signs or symptoms consistent with infection , No Pain on palpation/NO ecchymosis/LESS edema, (-), erythema/hematoma/dehiscence/celluli tis Orthopedic DIGITAL DEFORMITIES: alignment o f toe is rectus in all plains Dressing APPEARANCE Clean, dry, and intact
--- OUTSIDE RECORDS SUMMARY | 2025-01-02 08:44 | XMS_ITS | Patient Health Record ---
Author Organization [facility] hallie Rebuck Address [address] [place] [address] Care Team Providers Care Inspector Printed Circuit Boards Name Role Phone Blue Acosta MD Primary Care Provider Milli Jimenez Unavailable [phone] Allergies Allergen (clinical drug ingredient) Drug/Non Drug Allergy documented on EMR Reaction Allergy Type Onset Date Status zolpidem Ambien Unknown Drug Allergy Active Adhesive Unknown Allergy Active Reason For Referral No Information Medications Medication SIG (Take, Route, Frequency, Duration) Notes Start Date End Date Status Celecoxib 200 MG 1 capsule with food Orally Once a day Active Gabapentin 300 MG 1 capsule Orally Onc e a day Active Iodosorb Not-Taking CeleBREX Not-Taking Aspirin 81 MG Once a day Not-T aking Flecainide Acetate 100 MG as directed Orally Active Lisinopril 20 MG as directed Orally Active Metoprolol Succinate ER 50 MG 1 tablet Orally Once a day Active Atorvastatin Calcium 20 MG 1 tablet Orally Once a day Active Culturelle Probiotics - as directed Orally Active MiraLax Active Xarelto Active Augmentin Not-Taking Social History Tobacco Use: Social History Observation Description Date Details (start date - stop date) Never Smoker NA - NA Tobacco Use/Smoking Question Answer Notes Are you a: nonsmoker Tobacco use other than smoking: Question Answer Notes Are you an other tobacco user? No Problems Problem Type SNOMED Code ICD Code Onset Dates Problem Status W/U Status Risk Notes Problem Tinea unguium (841595785) Tinea unguium (B35.1) Active confirmed Problem Acquired hammer toe of left foot (5731419882355689 ) Other hammer toe(s) (acquired), left foot (M20.42) Active confirmed Problem Localized, primary osteoarthritis of the ankle and/or foot (610231429) Arthritis of joint of lesser toe, left (M19.072) Active confirmed Problem Ischemic ulcer of left foot, 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) Active confirmed Response to treatment Vital Signs Blood pressure diastolic 58 mm Hg 05/20/2024 Height 6ft3in in 05/20/2024 Blood pressure systolic 122 mm Hg 05/20/2024 Weight 315 lbs 05/20/2024 BMI 39.37 kg/m2 05/20/2024 Encounters Encounter Location Date Provider Diagnosis [facility] [address] [place] [address] 04/23/2024 Milli Schulza [facility] [address] [place] [address] 04/10/2024 Milli [place] Pain in left toe(s) M79.675 ; Other hammer toe(s) (acquired), left foot M20.42 and Exostosis of toe M89.8X7 [address] [address] 04/29/2024 Milli Perica Other hammer toe(s) (acquired), left foot M20.42 and Exostosis of toe M89.8X7 [address] [address] 05/06/2024 Milli Perica Other hammer toe(s) (acquired), left foot M20.42 and Exostosis of toe M89.8X7 [address] [address] 05/20/2024 Milli Perica Other hammer toe(s) (acquired), left foot M20.42 and Exostosis of toe M89.8X7 [address] [address] 04/23/2024 Milli Perica [address] [address] 04/24/2024 Milli Yost Assessments Encounter Date Diagnosis (ICD Code) Assessment Notes Treatment Notes Treatment Clinical Notes Section Notes 04/10/2024 Pain in left toe(s) (ICD-10 - M79.675) 04/29/2024 Other hammer toe(s) (acquired), left foot (ICD-10 - M20.42) 04/29/2024 Exostosis of toe (ICD-10 - M89.8X7) 05/06/2024 Other hammer toe(s) (acquired), left foot (ICD-10 - M20.42) 05/20/2024 Other hammer toe(s) (acquired), left foot (ICD-10 - M20.42) 05/20/2024 Exostosis of toe (ICD-10 - M89.8X7) 05/06/2024 Exostosis of toe (ICD-10 - M89.8X7) 04/10/2024 Other hammer toe(s) (acquired), left foot (ICD-10 - M20.42) 04/10/2024 Exostosis of toe (ICD-10 - M89.8X7) Plan Of Treatment Pending Test Test Name Order Date X ray : Foot, left 2V 05/06/2013 X ray : Foot, left 3V 05/30/2013 X ray : Foot, left 3V 06/17/2013 X ray : Foot, left 3V 03/29/2012 X ray : Foot, left 3V 04/01/2013 X ray : Foot, left 3V 04/11/2013 X ray : Foot, left 3V 04/22/2013 X ray : Foot, left 3V 08/17/2023 X ray : Foot, left 3V 09/10/2023 X ray : Foot, left 3V 04/10/2024 X ray : Foot, left 3V 04/29/2024 X ray : Foot, left 3V 05/06/2024 [id number] NAIL, 1-5 08/17/2023 [id number] NAIL, 1-5 03/31/2016 58743- Debride <25 sq cm 09/02/2013 78483- Debride <25 sq cm 08/17/2023 [id number] SKIN/TISSUE 07/07/2013 [id number] SKIN/TISSUE 07/22/2013 [id number] SKIN/TISSUE 08/12/2013 Insurance Providers Payer Name Payer Address Payer Phone Subscriber Number Group Number Insured Name Patient Relationship to Insured Coverage Start Date Coverage End Date Medicare National [employer] [address] [place] [address] [id number] Mahin Ha Self - patient is the insured [employer] [address] [place] [address] [id number] Mahin Ha Self - patient is the insured Medical (General) History Medical History History ICD Code sinus conditions neuropathy hypertension gall bladder problems back, hip, knee pain cholesterol Broken bones Measles Mumps Chicken pox Joint implants/screws Surgical History Surgery Date(Month/Year) jaw surgery uvula removed tonsillectomy and adenoidectomy cholecystectomy foot surgery 03/2013 Hammertoe repair left 2nd, 4 th, 5th with possible k-wire, Exostectomy left 5th toe 04/23/2024
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
--- OUTSIDE RECORDS SUMMARY | 2025-01-02 08:45 | XMS_ITS ---
Author Organization [facility] Address [address] [place] [address] Care Team Providers Care Sap Portal Architect Name Role Phone Blue Acosta MD Primary Care Provider Milli Jimenez Unavailable [phone] Allergies Allergen (clinical drug ingredient) Drug/Non Drug Allergy documented on EMR Reaction Allergy Type Onset Date Status zolpidem Ambien Unknown Drug Allergy Active Adhesive Unknown Allergy Active REASON FOR VISIT Pcp-04/15/24, Pcp-04/15/24, Post-op Medications Medication SIG (Take, Route, Frequency, Duration) Notes Start Date End Date Status Flecainide Acetate 100 MG as directed Orally Active Lisinopril 20 MG as directed Orally Active Metoprolol Succinate ER 50 MG 1 tablet Orally Once a day Active Atorvastatin Calcium 20 MG 1 tablet Orally Once a day Active Culturelle Probiotics - as directed Orally Active Celecoxib 200 MG 1 capsule with food Orally Once a day Active Augmentin Not-Taking Gabapentin 300 MG 1 capsule Orally Onc e a day Active MiraLax Active Xarelto Active Iodosorb Not-Taking CeleBREX Not-Taking Aspirin 81 MG Once a day Not-T aking Social History Tobacco Use: Social History Observation Description Date Details (start date - stop date) Never Smoker NA - NA Tobacco Use/Smoking Question Answer Notes Are you a: nonsmoker Tobacco use other than smoking: Question Answer Notes Are you an other tobacco user? No Vital Signs Height 6ft3in in 05/06/2024 Weight 315 lbs 05/06/2024 BMI 39.37 kg/m2 05/06/2024 Blood pressure systolic 124 mm Hg 05/06/20 24 Blood pressure diastolic 64 mm Hg 024 Encounters Encounter Location Date Provider Diagnosis [facility] [address] [place] [address] 05/06/2024 Milli Yost Other hammer toe(s) (acquired), left foot M20.42 and Exostosis of toe M89.8X7 Assessments Encounter Date Diagnosis (ICD Code) Assessment Notes Treatment Notes Treatment Clinical Notes Section Notes 05/06/2024 Other hammer toe(s) (acquired), left foot (ICD-10 - M20.42) 05/06/2024 Exostosis of toe (ICD-10 - M89.8X7) Plan Of Treatment Pending Test Test Name Order Date X ray : Foot, left 3V 05/06/2024 Next Appt Details Follow Up: 2 Weeks, Reason: Procedure Notes * Category Sub-Category Detail Notes Dressing Change: Type: dry sterile monae ssing , a light compressive dressing Topical: bacitacin applied Removal of: sutures performed [facility] sterile forceps/suture scissors or #15 blade, area cleaned with alcohol prior to removal Progress Notes * Mahin JORGE GDOB:[birth year] (68 yo M)Acc No.[id number]:05/06/2024 Progress Notes Patient:?Mahin Jorge Madan Provider:?Milli Yost DPM :1955???Age:68 Y???Sex:Male Max e:05/06/2024 [facility] Pcp:Blue Acosta MD Subjective: * Chief Complaints: * ???Pcp-04/15/24Pcp-04/15/24P ost-op * HPI: ???Post-op:?The patient presents for post-op of?Left 2, 4, 5 hammertoe repair and exostectomy left 5th toe.?Date of Surgery?:?04/23/2024 ?Current symptoms include?Pt denies fever, chills, nausea, calf pain, SOB, or increased anxiety, Pt states pain under control.? Pt presents WB in surgical shoe. Pt relates minimal pain without need for medication, no issues per pt. * ROS:?General/Constitutional:?Nausea?denies, denies.?Vomiting?denies, denies.?Hunger Thirst?denies, denies.?Loss appetite?denies, denies.?Chills?denies, denies.?Fatigue?denies, denies.?Fever?denies, denies.?Night Sweats denies, denies.?Unexplained weight loss?denies, denies.?Unexplained weight gain?denies, denies.?HEENTM:?Dentures?denies, denies.?Dizziness?admits, admits.?Glasses/contacts?admits, admits.?Retinopathy?denies, denies.?Blurred/double vision?denies, denies.?TMJ?denies, denies.?Discharge/drainage?denies, denies.?Implants?denies, denies.?Sore throat?denies, denies.?Dental implants?admits, admits.?Hard of hearing ?denies, denies.?Difficulty chewing/swallowing/speaking?denies, denies.?Nose bleeds?denies, denies.?Sore mouth?denies, denies.?Respiratory:?On Oxygen?denies, denies.?Pneumonia/pleurisy?denies, denies.?Bronchitis?denies, denies.?Emphysema?denies, denies.?Coughing?denies, denies.?Cough blood?denies, denies.?Shortness of breath?denies, denies.?Wheezing?denies, denies.?Cardiovascular:?Pacemaker?denies, denies.?MVP?denies, denies.?WPW?denies, denies.?CHF?denies, denies.?Heart attack?denies, denies.?Septal defect?denies, denies.?Rapid beat?denies, denies.?Chest pain ?denies, denies.?Atrial Fib.?admits, admits.?Murmur/Palpitations?denies, denies.?Gastrointestinal:?Hemorrhoids?denies, denies.?Stomach/Abdominal pain?denies, denies.?Dark blood stool?denies, denies.?Irritable bowel ?denies, denies.?Constipation?denies, denies.?Diarrhea?denies, denies.?Hematology:?Swelling?denies, denies.?Clots?denies, denies.?Varicose Veins?denies, denies.?Bruising?denies, denies.?Bleeding problem?denies, denies.?Genitourinary:?Blood urine?denies, denies.?Frequent/Painfu/urination/bladder control?denies, denies.?Kidney stones?denies, denies.?Infection (UTI)?denies, denies.?Nephropathy?denies, denies.?sex trans dis (STD)?denies, denies.?Prostate?denies, denies.?Musculoskeletal:?Hammertoes?admits, admits.?Bunions?denies, denies.?Back Pain?denies, denies.?Muscle Cramps/ Resting?denies, denies.?Muscle cramps / walking?denies, denies.?Generalized aches and pains?denies, denies.?Weakness?denies, denies.?Integ.:?Sands?denies, denies.?Scars?denies, denies.?Corns/calluses?admits, admits.?Ingrown nails?denies, denies.?Painful nails?admits,admits.?Open Sores?denies, denies.?Rashes?denies, denies.?Neurologic:?Difficulty sleeping?denies, denies.?Brain disorder?denies, denies.?Numbness?denies, denies.?Balance trouble?admits, admits.?Confusion?denies, denies.?Fainting/blackouts?denies, denies.?Tingling?denies, denies.?Tremors?denies, denies.? * Medical History:? * Surgical History:?jaw [...] Vitals:?Ht: 6ft3in, Wt:315, BMI:39.37, Shoe size: 10.5, BP:124/64 mm Hg, Ht-cm: 190.5 cm, Wt-k.88 kg. * Examination: ???Dressing: ?APPEARANCE?Clean, dry, and intact, with dry to moist blood present, no malodor.?Dermatologic: ?SURGICAL SITE?Skin and Sutures intact, Incision edges are well aligned and adhered, CFT intact , No signs or symptoms consistent with infection , (+), No??Pain on palpation/LESS?ecchymosis/LESS?edema, (-), erythema/hematoma/dehiscence/cellulitis.?Orthopedic: ?DIGITAL DEFORMITIES:?alignment of toe is [...] Change::?Type:?dry sterile dressing , a light compressive dressing.?Topical:?bacitacin applied.?Removal of:?sutures performed with sterile forceps/suture scissors or #15 blade, area cleaned with alcohol prior to removal.? * Procedure Codes:?87170 X-RAY EXAM OF LEFT FOOT 3V, Modifiers: 26 , LT * Preventive Medicine:? ??Counseling:?Post-op:?I reviewed with the patient the usual surgical post-op course. The patient is to call with any questions/complications, and will follow-up as scheduled, perform ROM (3-4 times a day; 20-25 reps each) exercises at the foot joint and ankle, return to accom firm-soled shoe for stability and support as tolerated , gradually increase activity to tolerance, The Pt. was counseled on the x-rays, continued treatment options, and the importance of following all homecare instructions, Pt can begin showering per usual starting tomorrow, can apply abx ointment to incisions to help with scarring, Pt to continue to ice and elevate foot to help with post op swelling and pain.? * Follow Up:?2 Weeks * Images: * Sign off status: Completed true * Provider:?Milli Yost DPM Date:? Generated for Navjot mccall/Janay/Kristy on:?01/02/2025 08:44 AM EDT History and Physical Notes * [...] or symptoms consistent with infection , (+), No Pain on palpation/LESS ecchymosis/LESS edema, (-), erythema/hematoma/dehiscen ce/cellulitis Orthopedic DIGITAL DEFORMITIES: alignment [...]
--- NOTE | 2025-01-02 09:10 | MHC.OFFWIV ---
Intake Vital Signs 01/02/25 09:12 Height 6 ft 2 in Weight 340 lb BMI 43.6 BP 132/78 Blood Pressure Location Lt brachial Position Sitting Pulse 58 Pulse Source Pulse Oximeter Pulse Oximetry (%) 94 Oxygen Delivery Method Room Air Intake Visit Reasons: EP LT lower back pain Intake Note: Patient here for left lower back pain that started sunday. no known injuries. Patient Tobacco Use Status: Never used Tobacco Allergies grass pollen-nisha, standard [Grass Pollen-Nisha,Std] Allergy (Mild, Verified 01/02/25 09:13) Unknown pollen extracts [POLLEN] Allergy (Mild, Verified 01/02/25 09:13) Unknown zolpidem [Ambien] Allergy (Unknown, Verified 01/02/25 09:13) Unknown house dust Allergy (Verified 01/02/25 09:13) Unknown environmental allergies Adverse Reaction (Verified 01/02/25 09:13) Sinus Inflammation Do you need a note to return to daycare/school/sports/work: No HPI HPI Comments History of Present Illness Details History of Present Illness - The patient is a 69-year-old male presenting with lower back pain. - Pain localizes in the mid back, radiating slightly to the left and wrapping around the waist; exacerbated when sitting or lying down. - Sudden onset occurred 2 days ago without any precipitating activities involving heavy lifting or exertion. - Attempts at relief with ice and nocturnal tramadol use for leg pain were ineffective; celecoxib use continues with no benefit. - No renal, urinary, or surgical history of note; denies urinary changes or loss of bowel/bladder control or blood in urine. - Pain persists despite standing relief, worsens with deep breaths. Physical Exam General: Cooperative, healthy appearing, comfortable, no acute distress and well developed Orientation: Patient oriented x3 Limitations: No limitations Head: Normal to inspection Ears: Hearing grossly normal bilaterally Nose: Normal External nose present Face and sinus: Normal facial exam Eyes: Appearance normal, both eyes and all related structures Neck: Normal visual inspection and Yes full ROM Respiratory: Normal respiratory effort and able to speak in complete sentences. Back/spine: no TTP along cervical, thoracic and lumbar spine, slight ttp to left sided low back, negative CVA Skin: No rashes or lesions noted Neuro: Patient oriented x3 Extremities: Normal to inspection [facility] Medical History Bleeding hemorrhoids HTN (hypertension) Acute knee pain PAF (paroxysmal atrial fibrillation) Surgical History Hx of foot surgery History of tonsillectomy and adenoidectomy History of deviated nasal septum Hx of cholecystectomy History of mandibular surgery Family History Father CVD (cardiovascular disease) Mother No problems noted. Social History Alcohol intake: never Patient Tobacco Use Status: Never used Tobacco Current occupational status: retired Review of Systems Const All systems reviewed & are unremarkable except as noted in HPI and below Physical Exam Vital Signs: Last Vital Signs Pulse 58 01/02/25 09:12 BP 132/78 01/02/25 09:12 Pulse Ox 94 01/02/25 09:12 Oxygen Delivery Method Room Air 01/02/25 09:12 BMI result Body Mass Index 43.6 Assessment & Plan Assessment & Plan (1) Left low back pain: Code(s): M54.50 - Low back pain, unspecified Qualifiers: Chronicity: acute Sciatica presence: without sciatica Qualified Code(s): M54.50 - Low back pain, unspecified Plan: Administer an oral steroid burst, prednisone, considering the inflammation aspect of the back pain. A muscle relaxant, cyclobenzaprine, was prescribed to alleviate spasms, and advised at night. Patient advised on potential GI bleeding concerns from concurrent NSAID and steroid use?ceasing prednisone upon symptoms. No imaging necessary due to absent spinal tenderness. Prescriptions forwarded to [facility], [place], and physical therapy remains a future option if pain persists. Patient was informed and verbally consented to the use of an ambient scribe for clinic note documentation during this visit. Medications: New prednisone 40 mg (2 x 20 mg) PO QAM 10 tabs 0RF cyclobenzaprine 5 mg PO Q8H PRN 10 tabs 0RF Muscle Spasm Coding Level of Care Code Est Pt Level 3 (18967) Diagnoses Acute left-sided low back pain without sciatica M54.50 Chronicity: acute Sciatica presence: without sciatica
[2025-01-02 09:12] VITALS: BP 132/78; PULSE 58; O2SAT 94; BMI 43.6
== END 2025-01-02 10:11 | disposition home or self-care (01) ==
PROVIDERS: PCP Internal Medicine; Visit Provider Physician Assistant
DX: M54.50 Low back pain, unspecified (principal)

== ENCOUNTER 2025-01-02 11:08 | Outpatient (REF) | payer MEDICARE, OTHER, SELFPAY ==
[2025-01-02 12:25] LABS: Alanine Aminotransferase 22 U/L (0-40); Albumin Level 3.9 g/dL (3.5-5.0); Alkaline Phosphatase 80 U/L (39-117); Aspartate Amino Transferase 29 U/L (5-37); Bilirubin Direct 0.3 mg/dL (0.0-0.5); Bilirubin Total 0.6 mg/dL (0.0-1.0); Cholesterol 118 mg/dL (<200); Glucose Fasting 118 mg/dL (60-99); HDL Cholesterol 36 mg/dL (>40); LDL Cholesterol Calculated 59 mg/dL (<100); Total Protein 7.6 g/dL (6.5-8.0); Triglycerides 118 mg/dL (<150)
[2025-01-02 12:26] LABS: Reflex LDLD? No
[2025-01-02 13:23] LABS: Estimated Average Glucose 114 mg/dL; Hemoglobin A1c % 5.6 % (<6.0); Total Hemoglobin (HGBA1C) 3643.1649 umol/L
== END 2025-01-02 11:09 | disposition home or self-care (01) ==
LOC: HO.LNP 11:08
PROVIDERS: Visit Provider Internal Medicine
DX: E78.2 Mixed hyperlipidemia (principal); R73.03 Prediabetes; M54.50 Low back pain, unspecified
CPT/HCPCS: 80061; 80076; 82947; 83036; 99212

== ENCOUNTER 2025-01-03 09:15 | Outpatient (AMB) | payer MEDICARE, OTHER, SELFPAY ==
--- OUTSIDE RECORDS SUMMARY | 2025-01-03 09:16 | XMS_ITS ---
Author Organization Blue Acosta MD Address [address] [place], [place] [id number] Care Team Providers Care Inside Phone Sales Name Role Phone Blue Acosta Primary Care [...] Location Date Provider Diagnosis Blue Acosta MD [address] [place] [address] [place] [phone] 07/10/2024 Blue Acosta Essential hypertensi on I10 [...] Reason: Provider Name:Blue garrido, 01/09/2025 09:15:00 AM, [address] [place] [address], [address] [place] [address], [phone], Provider Name:Blue garrido, 07/10/2025 07:00:00 AM, [address] [place] [address], Suite [facility], [place], [place], [phone], Provider Name:Bule garrido, 07/16/2025 08:00:00 AM, [address] [place] [address], [address] [place] [address], [phone], Progress Notes * Mahin AMBROCIO GDOB:[birth year] (68 yo M)Acc No.[id number]:07/10/2024 Patient:?Mahin Ambrocio Provider:?Blue Acosta MD :1955???Age:68 Y???Sex:Male Max e:07/10/2024 Address:[address] [place], [place] [phone] Subjective: * Chief Complaints: * ???Review labs [...] 1 cat. no Travel outside of the [facility], [place]. * Medications:?TakingGabapenti n 300 MG Capsule [...] mg/dL ?Urine Blood Negative Negative - ?Specific [place] - Urine 1.010 1.005-1.025 - ?Urine Protein [...] Casts Urine 0-2 0-2 - /LPF ???Lab:[facility] [place]. P michelle Fast (Order Date - 07/03/2024) [...] Provider:?Blue Acosta MD Date:?0 07/10/2024 Generated for Navjot mccall/Janay/eTransmitting on:?01/03/2025 09:16 AM EDT History and Physical Notes * [...]
--- OUTSIDE RECORDS SUMMARY | 2025-01-03 09:16 | XMS_ITS ---
Author Organization Blue Acosta MD Address [address] [place], [place] [address] Care Team Providers Care Pets Salesperson Name Role Phone Blue Acosta Primary Care Provider [phone] Results Component Value Reference Range Notes Hemoglobin A1c (Not yet revi ewed by provider) Interpretation: Performing Lab:[facility], [address] [place] [phone] Notes/Report: Hemoglobin A1c % 5.6 <6.0 % [...] average glucose, using the formula of the I5H-Bqctrzz Average Glucose study (ADAG), Diabetes Care, Vol.31,#8, May. 2007 Liver Panel Reviewed date:01/02/2025 12:30:46 PM Interpretation: Performing Lab:[facility], [address] [place] [phone] Notes/Report: Bilirubin Total 0.6 0.0-1.0 mg/dL Bilirubin Direct 0.3 0.0-0.5 mg/dL Aspartate Amino Transferase 29 5-37 U/L Alanine Aminotransferase 22 0-40 U/L Total Protein 7.6 6.5-8.0 g/dL Albumin Level 3.9 3.5-5.0 g/dL Alkaline Phosphatase 80 39-117 U/L Glucose Fasting Reviewed date:01/02/2025 12:30:54 PM Interpretation: Performing Lab:[facility], [address] [place] [phone] Notes/Report: Glucose Fasting 118 60-99 mg/dL A fasting glucose from 100-125 mg/dl is considered impaired (pre-diabetes). Lipid Panel with Reflex Reviewed date:01/02/2025 12:31:05 PM Interpretation: Performing Lab:[facility], [address] [place] [phone] Notes/Report: Triglycerides 118 <150 mg/dL Desirable Triglyceride: [...] low results in patients with liver disease. REASON FOR VISIT FASTING LIPIDS Encounters Encounter Location Date Provider Diagnosis Blue Acosta MD [address] [place] [address] [place] [phone] 01/02/2025 Blue Acosta Mixed hyperlipidemia E78.2 and Prediabetes R73.09 Assessments Encounter Date Diagnosis (ICD Code) Assessment Notes Treatment Notes Treatment Clinical Notes Section Notes 01/02/2025 Mixed hyperlipidemia (ICD-10 - E78.2) 01/02/2025 Prediabetes (ICD-10 - R73.09) Plan Of Treatment Pending Test Test Name Order Date Hemoglobin A1c 01/02/2025 Next Appt Details Provider Name:Blue garrido, 01/09/2025 09:15:00 AM, [address] [place] [address], Suite [facility], [place], [place], [phone], Provider Name:Blue garrido, 07/10/2025 07:00:00 AM, [address] [facility], [address], [place], [place], [phone], Provider Name:Blue Arechiga ier, 07/16/2025 08:00:00 AM, [address] [facility], [address], [place], [place], [phone], Progress Notes * Mahin AMBROCIO GDOB:[birth year] (69 yo M)Acc No.[id number]:01/02/2025 Progress Note Patient:?Mahin AMBROCIO Provider:?Blue Acosta MD :1955???Age:69 Y???Sex:Male Max e:01/02/2025 Address:[address] [place], [place] [phone] Subjective: * Chief Complaints: * ???1. FASTING LIPIDS. * Medical History:? Objective: * Vitals:? Assessment: * Assessment: 1.?Mixed hyperlipidemia - E7 8.2 (Primary)???2.?Prediabetes - R73.09??? Plan: * Treatment: 2.?Prediabetes?LAB: Hemoglobin A1c (Collection Date & Time - 01/02/2025 08:00 AM) ?LAB: Liver Panel (Collection Date & Time - 01/02/2025 08:00 AM) ?LAB: Glucose Fasting (Collection Date & Time - 01/02/2025 08:00 AM) ?LAB: Lipid Panel with Reflex (Collection Date & Time - 01/02/2025 08:00 AM) * Procedure Codes:?01854 VENIP UNCT, ROUTINE* * * The named appointment provid er may or may not be the originator of this progress note, and it is not deemed complete until electronically signed by the appointment provider. Sign off status: Pending * Provider:?Blue Acosta MD Date:?0 01/02/2025 Generated for Printi ng/Faxing/eTransmitting on:?01/03/2025 09:16 AM EDT
--- OUTSIDE RECORDS SUMMARY | 2025-01-03 09:16 | XMS_ITS ---
Author Organization [facility] Address [address] [place] [address] Care Team Providers Care Certified Mortician Name Role Phone Blue Acosta MD Primary Care Provider Milli Jimenez Unavailable [phone] Allergies Allergen (clinical drug ingredient) Drug/Non Drug [...] 024 Encounters Encounter Location Date Provider Diagnosis [facility] [place] [address] [place] [address] 04/29/2024 Milli Yost Other hammer toe(s) (acquired), [...] Mahin JORGE GDOB:[birth year] (68 yo M)Acc No.[id number]:04/29/2024 Progress Notes Patient:?Mahin Jorge Provider:?Milli Yost DPM :1955???Age:68 Y???Sex:Male Max e:04/29/2024 Address:[address] [place], [place] [address] Pcp:Blue Acosta MD Subjective: * Chief Complaints: [...] , a light compressive dressing.? * Procedure Codes:?59659 X-RAY EXAM OF LEFT FOOT 3V, Modifiers: [...] Yost DPM Date:? Generated for Navjot mccall/Janay/eTransmitting on:?01/03/2025 09:16 AM [...]
--- OUTSIDE RECORDS SUMMARY | 2025-01-03 09:16 | XMS_ITS ---
Author Organization [facility] Address [address] [place] [address] Care Team Providers Care Retention Manager Name Role Phone Blue Acosta MD Primary Care Provider Milli Jimenez Unavailable [phone] Allergies Allergen (clinical drug ingredient) Drug/Non Drug [...] 024 Encounters Encounter Location Date Provider Diagnosis [facility] [place] [address] [place] [address] 05/20/2024 Milli Yost Other hammer toe(s) (acquired), [...] Mahin JORGE GDOB:[birth year] (68 yo M)Acc No.[id number]:05/20/2024 PROGRESS NOTES Patient:?Mahin Jorge Madan Provider:?Milli Yost DPM :1955???Age:68 Y???Sex:Male Max e:05/20/2024 [place] [place] Pcp:Blue Acosta MD Subjective: * Chief [...] Yost DPM Date:?03/2024 Generated for Navjot mccall/Janay/Kristy on:?01/03/2025 09:16 AM EDT History and Physical [...]
--- OUTSIDE RECORDS SUMMARY | 2025-01-03 09:17 | XMS_ITS ---
Author Organization [facility] Address [address] [place] [address] Care Team Providers Care Jewelry Bench Worker Name Role Phone Blue Acosta MD Primary Care Provider Corby Michel [phone] Allergies Allergen (clinical drug ingredient) Drug/Non Drug [...] Risk Notes Problem Benign neoplasm of colon (70747198) Serrated adenoma of colon (D12.6) Active confirmed Problem Serrated polyp of colon (673978022) Serrated polyp of colon (K63.5) Active confirmed Vital Signs Blood pressure systolic 111 mm Hg 12/11/19 25 Blood pressure diastolic 11 mm Hg 025 Height 74 in 12/11/2024 Weight 337 lbs 12/11/2024 BMI 43.26 kg/m2 12/11/2024 Procedures Procedure Date Ordered Date Performed Result Body Sit e COLONOSCOPY 12/11/2024 N/A Encounters Encounter Location Date Provider Diagnosis [facility] [address] [facility] [address] [place] [address] 12/11/2024 Corby Sanchez History of adenomato us [...] Name:Corby Herndon Daniel , 03/20/2025 09:30:00 AM, [address] [place] [address] , [place], [place], [phone], Progress Notes * KYRIE JORGE GDOB:[birth year] (69 yo M)Acc No.[id number]:12/11/2024 Progress Notes Patient:?KYRIE JORGE Provider:?Corby Sanchez MD :1955???Age:69 Y???Sex:Male Max e:12/11/2024 Address:[address] [place] [address] Pcp:Blue Acosta MD Subjective: * Chief Complaints: * ???1. Patient presents today for a COLON SCREENING. * Medical History:?Colonoscopy 12/29/2005-negative for polyps; colonoscopy in 04/2012 with a tiny serrated adenoma of the cecum, diverticulosis, and internal hemorrhoids, ERCP for choledocholithiasis in 06/2005, Duodenal ulcers in 2004, Denies [place],DM,CVA,Lung disease,renal disease, HTN, Sleep apnea--uses a nasal CPAP, Atrial fibrillation, Hyperlipidemia, Colonoscopy 10/2019 with removal of only hyperplastic polyps, Negative CT of abdomen/pelvis 08/2021, except diverticulosis, Negative EGD in [place] for vomiting in 2022. * Surgical History:?Cholecyste [...] 2 days before the colonoscopy * Procedure Codes:?78841 DIAGN OSTIC COLONOSCOPY * Preventive Medicine:? ??Counseling:?Care goal follow-up plan:?Above Normal BMI Follow-up?Giving encouragement to exercise,?BMI management provided?Yes.? * * The named appointment provid er may or may not be the originator of this progress note, and it is not deemed complete until electronically signed by the appointment provider. Sign off status: Pending * Provider:?Corby Sanchez MD Date:? 025 Generated for Navjot mccall/Janay/Kristy on:?01/03/2025 09:17 AM EDT
--- OUTSIDE RECORDS SUMMARY | 2025-01-03 09:17 | XMS_ITS | Patient Health Record ---
Author Organization [facility] Address [address] [place] [address] Care Team Providers Care Chief Nursing Executive Name Role Phone Blue Acosta MD Primary Care Provider Corby Michel [phone] Allergies Allergen (clinical drug ingredient) Drug/Non Drug [...] Problem Status W/U Status Risk Notes Problem 360796607 Encounter for screening for malignant neoplasm of colon (Z12.11) Active confirmed Problem 227288582 History of adenomatous polyp of colon (Z86.010) Active confirmed Problem Constipation (85468367) Constipation (K59.00) Active confirmed Problem Abdominal bloating (823269865) Abdominal bloating (R14.0) Active confirmed Problem 522912786067903 Preprocedural examination (Z01.818) Active confirmed Problem 433328146 Long-term use of aspirin therapy (Z79.82) Active confirmed Problem Chronic constipation (251340324) Constipation, chronic (K59.00) Active confirmed Problem Benign neoplasm of colon (12206957) Serrated adenoma of colon (D12.6) Active confirmed Problem Serrated polyp of colon (707406912) Serrated polyp of colon (K63.5) Active confirmed Vital Signs Blood pressure diastolic 11 mm Hg 12/11/2024 Height 74 in 12/11/2024 Blood pressure systolic 111 mm Hg 12/11/2024 Weight 337 lbs 12/11/2024 BMI 43.26 kg/m2 12/11/2024 Procedures Procedure Date Ordered Date Performed Result Body Sit e COLONOSCOPY 12/11/2024 N/A Encounters Encounter Location Date Provider Diagnosis [facility] [address] [place] [address] 12/11/2024 Corby Sanchez History of adenomato us [...] Name:Corby Sanchez , 03/20/2025 09:30:00 AM, [address] [facility] , [place], [place], [phone], Insurance Providers Payer Name Payer Address Payer Phone Subscriber Number Group Number Insured Name Patient Relationship to Insured Coverage Start Date Coverage End Date MEDICARE OF [place] [address] [place] [address] [id number] KYRIE JORGE Self - patient is the insured [employer] ([employer]) [address] [place] [address] [id number] KYRIE JORGE Self - patient is the insured Medical (General) History Medical History History ICD Code Colonoscopy 12/29/2005-negati ve for polyps; colonoscopy in 04/2012 with a tiny serrated adenoma of the cecum, diverticulosis, and internal hemorrhoids ERCP for choledocholithiasis in 06/2005 Duodenal ulcers in 2004 Denies [place],DM,CVA,Lung disease,renal dise ase HTN Sleep apnea--uses a [...]
--- OUTSIDE RECORDS SUMMARY | 2025-01-03 09:17 | XMS_ITS ---
Author Organization Blue Acosta MD Address [address] [place], [place] [address] Care Team Providers Care Human Resources Operations Director Name Role Phone Blue Acosta Primary Care Provider [phone] Results Component Value Reference Range Notes Complete Blood Count Auto Di ff Reviewed date:07/03/2024 05:03:13 PM Interpretation: Performing Lab:[facility], [address] [place] [phone] Notes/Report: White Blood Count 8.5 4.8-10.8 X10*3/uL [...] NRBC Abs Auto 0.000 0.0-0.012 X10*3/uL Comprehensive [place]. Panel Fa st Reviewed date:07/03/2024 12:20:41 PM Interpretation: Performing Lab:[facility], [address] [place] [phone] Notes/Report: Sodium 140 135-145 mmol/L Potassium 4.2 3.3-5.1 mmol/L Chloride 105 96-108 mmol/L Carbon Dioxide 28 22-29 mmol/L Anion Gap 11 12-20 Blood Urea Nitrogen 16 9-16 mg/dL Creatinine 0.91 0.5-1.4 mg/dL Estimated Glomerular Filt Rate > 60 NOTE: For -Qat[place] individuals, multiply the result by 1.210. Chronic [...] 12:16:21 PM Interpretation: Performing Lab:[facility], [address] [place] [phone] Notes/Report: Triglycerides 103 <150 mg/dL Desirable Triglyceride: [...] (Free>4and<10) Reviewed date:07/03/2024 12:17:59 PM Interpretation: Performing Lab:[address] [address] Notes/Report: PSA,Total (Free>4and<10) 0.31 0.00-4.00 ng/mL A [...] 12:30:42 PM Interpretation: Performing Lab:[facility], [address] [place] [phone] Notes/Report: Creatinine Urine 52.54 Microalbumin Urine < 5.0 Microalbum/Creatinine Ratio Ur TNP <30 ug/mg cr Unable to calculate albumin/creatinine ratio due to low microalbumin or creatinine result. Hemoglobin A1c Reviewed date:07/03/2024 12:16:31 PM Interpretation: Performing Lab:[address] [address] Notes/Report: Hemoglobin A1c % 5.6 <6.0 % [...] average glucose, using the formula of the W6O-Hqeuzqb Average Glucose study (ADAG), Diabetes Care, Vol.31,#8, May. 2007 UA ClnCatch+Micro w/rflx Cul t Reviewed date:07/03/2024 12:27:43 PM Interpretation: Performing Lab:[facility], [address] [place] [phone] Notes/Report: Urine, Clean Catch Color Urine Yellow Appearance Urine Clear PH 5.5 5.0-9.0 Glucose Urine UA Negative Negative mg/dL Urine Blood Negative Negative Specific [place] - Urine 1.010 1.005-1.025 Urine Protein Negative [...] Location Date Provider Diagnosis Blue Acosta MD [address] [place] [address] [address] [place], [place] [phone] 07/03/2024 Blue Acosta Mixed hyperlipidemia E78.2 ; [...] 09:15:00 AM, [address], [address], [place], [place], [phone], Provider Name:Blue Arechiga ier, 07/10/2025 07:00:00 AM, [address], [address], [place], [place], [phone], Provider Name:Blue Arechiga ier, 07/16/2025 08:00:00 AM, [address], [address], [place], [place], [phone], Progress Notes * Mahin AMBROCIO GDOB:[birth year] (69 yo M)Acc No.[id number]:07/03/2024 Progress Note Patient:?LUISITO Mahin Madan Provider:?Blue Acosta MD :1955???Age:68 Y???Sex:Male Max e:07/03/2024 Address:[address] [place], [place] [address] Subjective: * Chief Complaints: * ???1. FASTING LABS. * Medical History:? Objective: * Vitals:? Assessment: * Assessment: 1.?Encounter for immunizatio n - Z23 (Primary)???2.?Mixed hyperlipidemia - E78.2???3.?Essential hypertension - I10???4.?Prediabetes - R73.09??? Plan: * Treatment: 2.?Essential hypertension?LAB: Complete Blood Count Auto Diff (Collection Date & Time - 07/03/2024 07:30 AM) ?LAB: Comprehensive [place]. Panel Fast (Collection Date & Time - [...] Time - 07/03/2024 07:30 AM) ?LAB: Comprehensive [place]. Panel Fast (Collection Date & Time - [...] Office Staff on Left Deltoid * Procedure Codes:?49162 FLU V AC NO PRSV 4 JOELLE 3 YRS+, G0008 ADMN FLU VAC NO FEE SCHED SAME DAY, 60562 VENIPUNCT, ROUTINE* * * The named appointment provid er may or may not be the originator of this progress note, and it is not deemed complete until electronically signed by the appointment provider. Sign off status: Pending * Provider:?Blue Acosta MD Date:?0 07/03/2024 Generated for Navjot mccall/Janay/eTransmitting on:?01/03/2025 09:16 AM EDT
--- OUTSIDE RECORDS SUMMARY | 2025-01-03 09:17 | XMS_ITS | Patient Health Record ---
Author Organization [facility] Address [address] [place] [address] Care Team Providers Care Rotary Operator Name Role Phone Blue Acosta MD Primary Care Provider Milli Jimenez Unavailable [phone] Allergies Allergen (clinical drug ingredient) Drug/Non Drug [...] W/U Status Risk Notes Problem Tinea unguium (296898240) Tinea unguium (B35.1) Active confirmed Problem Acquired hammer toe of left foot (0972873172046469 ) Other hammer toe(s) (acquired), left foot (M20.42) Active confirmed Problem Localized, primary osteoarthritis of the ankle and/or foot (402073014) Arthritis of joint of lesser toe, left (M19.072) Active confirmed Problem Ischemic ulcer of left foot, 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) Active confirmed Response to treatment Vital Signs Blood pressure diastolic 58 mm Hg 05/20/2024 Height 6ft3in in 05/20/2024 Blood pressure systolic 122 mm Hg 05/20/2024 Weight 315 lbs 05/20/2024 BMI 39.37 kg/m2 05/20/2024 Encounters Encounter Location Date Provider Diagnosis [facility] [address] [place] [address] 04/23/2024 Milli Schulza [facility] [address] [place] [address] 04/10/2024 Milli Peric[place]ee Pain in left toe(s) M79.675 ; Other hammer toe(s) (acquired), left foot M20.42 and Exostosis of toe M89.8X7 [address] [address] 04/29/2024 Milli Perica Other hammer toe(s) (acquired), left foot M20.42 and Exostosis of toe M89.8X7 [address] [address] 05/06/2024 Milli Perica Other hammer toe(s) (acquired), left foot M20.42 and Exostosis of toe M89.8X7 [address] [address] 05/20/2024 Milli Perica Other hammer toe(s) (acquired), left foot M20.42 and Exostosis of toe M89.8X7 [address] [address] 04/23/2024 Milli Perica [address] [address] 04/24/2024 Milli Yost Assessments Encounter Date Diagnosis (ICD Code) Assessment Notes Treatment Notes Treatment Clinical Notes Section Notes 04/10/2024 Pain in left toe(s) (ICD-10 - M79.675) 05/20/2024 Other hammer toe(s) (acquired), left foot (ICD-10 - M20.42) 05/06/2024 Other hammer toe(s) (acquired), left foot (ICD-10 - M20.42) 04/29/2024 Other hammer toe(s) (acquired), left foot (ICD-10 - M20.42) 04/29/2024 Exostosis of toe (ICD-10 - M89.8X7) 05/06/2024 Exostosis of toe (ICD-10 - M89.8X7) 05/20/2024 Exostosis of toe (ICD-10 - M89.8X7) 04/10/2024 Other hammer toe(s) (acquired), left foot (ICD-10 - M20.42) 04/10/2024 Exostosis of toe (ICD-10 - M89.8X7) Plan Of Treatment Pending Test Test Name Order Date X ray : Foot, left 2V 05/06/2013 X ray : Foot, left 3V 03/29/2012 X ray : Foot, left 3V 06/17/2013 X ray : Foot, left 3V 05/30/2013 X ray : Foot, left 3V 08/17/2023 X ray : Foot, left 3V 04/01/2013 X ray : Foot, left 3V 04/11/2013 X ray : Foot, left 3V 04/22/2013 X ray : Foot, left 3V 09/10/2023 X ray : Foot, left 3V 04/10/2024 X ray : Foot, left 3V 04/29/2024 X ray : Foot, left 3V 05/06/2024 56630-ETQJBRW NAIL, 1-5 08/17/2023 95670-FSQBQRT NAIL, 1-5 03/31/2016 76943- Debride <25 sq cm 09/02/2013 03035- Debride <25 sq cm 08/17/2023 21170-NGMNLSA SKIN/TISSUE 07/22/2013 18926-SZOTYTZ SKIN/TISSUE 07/07/2013 38555-KGUUVAR SKIN/TISSUE 08/12/2013 Insurance Providers Payer Name Payer Address Payer Phone Subscriber Number Group Number Insured Name Patient Relationship to Insured Coverage Start Date Coverage End Date Medicare National [employer] [address] [place] [address] [id number] Mahin Ha Self - patient is the insured fflap ([employer]) [address] [place] [address] [id number] Mahin Ha Self - patient is [...]
--- OUTSIDE RECORDS SUMMARY | 2025-01-03 09:18 | XMS_ITS ---
Author Organization [facility] Address [address] [facility] [place] [address] Care Team Providers Care Public Safety Officer Name Role Phone Blue Acosta MD Primary Care Provider Milli Jimenez Unavailable [phone] Allergies Allergen (clinical drug ingredient) Drug/Non Drug [...] 024 Encounters Encounter Location Date Provider Diagnosis [facility] [place] [address] [place] [address] 05/06/2024 Milli Yost Other hammer toe(s) (acquired), [...] Topical: bacitacin applied Removal of: sutures performed [facility] sterile forceps/suture scissors or #15 blade, area cleaned with alcohol prior to removal Progress Notes * Mahin JORGE GDOB:[birth year] (68 yo M)Acc No.[id number]:05/06/2024 Progress Notes Patient:?Mahin Jorge Madan Provider:?Milli Yost DPM :1955???Age:68 Y???Sex:Male Max e:05/06/2024 [facility] Pcp:Blue Acosta MD Subjective: * Chief Complaints: [...] with alcohol prior to removal.? * Procedure Codes:?55521 X-RAY EXAM OF LEFT FOOT 3V, Modifiers: [...] Provider:?Milli Yost DPM Date:? Generated for Navjot mccall/Janay/Tanoitting on:?01/03/2025 09:17 AM EDT History and Physical Notes * [...]
[2025-01-03 09:23] VITALS: BP 112/80; PULSE 56; RESP 17; TEMP 36.5; O2SAT 95; BMI 42.4
--- NOTE | 2025-01-03 09:23 | AM.OFFWIN_ITS ---
Intake Vital Signs 01/03/25 09:23 Height 6 ft 2 in Weight 330 lb BMI 42.4 BP 112/80 Blood Pressure Location Lt radial Position Sitting Respiration 17 Pulse 56 Pulse Source Pulse Oximeter Temp 97.7 F Temp Source Oral Pulse Oximetry (%) 95 Oxygen Delivery Method Room Air Intake Visit Reasons: EP severe lower back pain-seen yesterday Intake Note: Pt is here today c/o lower back pain. Was here at the [place] yesterday no improvement and now Lt side of groin pain Patient Tobacco Use Status: Never used Tobacco Allergies grass pollen-jacoby, standard [Grass Pollen-Jacoby,Std] Allergy (Mild, Verified 01/03/25 09:47) Unknown pollen extracts [POLLEN] Allergy (Mild, Verified 01/03/25 09:47) Unknown zolpidem [Ambien] Allergy (Unknown, Verified 01/03/25 09:47) Unknown house dust Allergy (Verified 01/03/25 09:47) Unknown environmental allergies Adverse Reaction (Verified 01/03/25 09:47) Sinus Inflammation Medication List - Last Reconciled 01/03/25 by Lacho Goyal MD atorvastatin 20 mg PO DAILY celecoxib 200 mg PO DAILY chair, wheel (Wheel chair) As directed chair, wheel (Wheel chair) As directed cyclobenzaprine 5 mg PO Q8H PRN docusate sodium (Colace) 100 mg PO DAILY flecainide 100 mg PO Q12H gabapentin 300 mg PO BEDTIME lisinopril 20 mg PO DAILY metoprolol succinate ER 50 mg PO DAILY multivitamin 1 tab PO DAILY prednisone 40 mg (2 x 20 mg) PO QAM psyllium husk (Metamucil) 1 tsp PO DAILY rivaroxaban (Xarelto) 20 mg PO QPM tramadol 50 mg PO Q8H PRN triamcinolone acetonide 0.5% appl topical HPI EP severe lower back pain-seen yesterday HPI Details Patient presents with worsening low back pain radiating into buttock, hip and groin was seen yesterday and given cyclobenzaprine he is taking celecoxib 200 mg daily. he does not take other NSAIDs due to history of ulcer and GI bleeding. Tolerates celecoxib no numbness of groin or saddle region PFSH Medical History Bleeding hemorrhoids HTN (hypertension) Acute knee pain PAF (paroxysmal atrial fibrillation) Surgical History Hx of foot surgery History of tonsillectomy and adenoidectomy History of deviated nasal septum Hx of cholecystectomy History of mandibular surgery Family History Father CVD (cardiovascular disease) Mother No problems noted. Social History Alcohol intake: never Patient Tobacco Use Status: Never used Tobacco Current occupational status: retired Review of Systems Const Denies chills, Denies fatigue, Denies fever(s), Denies headache(s) and Denies weakness ENT Denies dizziness and Denies headache(s) Card Denies dyspnea Resp Denies cough, Denies dyspnea, Denies wheezing and Denies other ( shortness of breath) Musc Details: back pain-see HPI Denies numbness and Denies tingling Neuro Denies dizziness, Denies headache(s), Denies numbness, Denies tingling, Denies paresthesias and Denies weakness Psych Denies anxiety and Denies depression Endo Denies fatigue Aller/Immun Denies wheezing Physical Exam Vital Signs: Last Vital Signs Temp 97.7 F 01/03/25 09:23 Pulse 56 01/03/25 09:23 Resp 17 01/03/25 09:23 BP 112/80 01/03/25 09:23 Pulse Ox 95 01/03/25 09:23 Oxygen Delivery Method Room Air 01/03/25 09:23 BMI result Body Mass Index 42.4 Const General: no acute distress and well developed Nutritional Appearance: well nourished Orientation/consciousness: patient oriented x3 HEENT Head: Yes normocephalic and Yes atraumatic Eyes General: appearance normal, both eyes and all related structures Pupils: Equal, round and reactive pupils present EOM: EOMs intact bilaterally Resp Effort & Inspection: normal respiratory effort Back/Spine/Pelvis Other: pain with any range of motion of back. Walking with cane Neuro General: patient oriented x3 and gait normal Cranial nerves: Yes Equal, round and reactive pupils present Psych Affect: normal affect Results AMB Urinalysis, Automated UA Leukoctes 0 Drew/uL Last Edit by Addis Galvez, KEAGAN on 01/03/25 10:05 UA Nitrite Negative Last Edit by Addis Galvez, [employer] on 01/03/25 10:05 UA Urobilinogen 0.2 mg/dL Last Edit by Addis Galvez, [employer] on 01/03/25 10:05 UA Protein 0 mg/dL Last Edit by Addis Galvez, [employer] on 01/03/25 10:05 UA pH 6.0 Last Edit by Addis Galvez, [employer] TE[employer] on 01/03/25 10:05 UA Blood 0 Stan/uL Last Edit by Addis Galvez, H[employer]CHO[employer] TE[employer] on 01/03/25 10:05 UA Specific [place] 1.030 Last Edit by Addis Galvez, H[employer]CHO[employer] TE[employer] on 01/03/25 10:05 UA Ketone Negative Last Edit by Addis Galvez, KEAGAN on 01/03/25 10:05 UA Bilirubin 0 mg/dL Last Edit by Addis Galvez, H[employer]CHO[employer] TE[employer] on 01/03/25 10:05 UA Glucose 0 mg/dL Last Edit by Addis Galvez, H[employer]CHO[employer] TE[employer] on 01/03/25 10:05 Results Reviewed Results Reviewed: Laboratory Last Values Urine pH (Auto) 6.0 01/03/25 10:03 Specific [place] (Auto) 1.030 01/03/25 10:03 Urine Protein (Auto) 0 mg/dL 01/03/25 10:03 Glucose (UA)(Auto) 0 mg/dL 01/03/25 10:03 Urine Ketones (Auto) Negative 01/03/25 10:03 Urine Blood (Auto) 0 Stan/uL 01/03/25 10:03 Urine Nitrite (Auto) Negative 01/03/25 10:03 Urine Bilirubin (Auto) 0 mg/dL 01/03/25 10:03 Urine Urobilinogen (Auto) 0.2 mg/dL 01/03/25 10:03 Leukocyte Esterase (Auto) 0 Drew/uL 01/03/25 10:03 Assessment & Plan Assessment & Plan (1) Left low back pain: Code(s): M54.50 - Low back pain, unspecified Qualifiers: Chronicity: acute Sciatica presence: without sciatica Qualified Code(s): M54.50 - Low back pain, unspecified Plan: worsening/ severe low back pain will have him increase cyclobenzaprine from 5 mg b.i.d. to 10 mg b.i.d. will have him increase celecoxib from 200 mg daily to 200 mg b.i.d. will give him a short course of tramadol ice/heat 20 minutes at a time throughout his day referred for physical therapy Orders: Orders AMB Urinalysis Automated Today Z13.9 - Encounter for screening, unspecified PT Evaluation and Treatment Today M54.50 - Low back pain, unspecified Medications: New celecoxib 200 mg PO BID 5 days PRN 10 caps 0RF pain cyclobenzaprine 10 mg PO Q12H 5 days PRN 10 tabs 0RF muscle spasm Changed From tramadol 50 mg PO Q8H PRN 8 tabs 0RF pain To tramadol 50 mg PO Q12H 5 days PRN 10 tabs 0RF pain Coding Level of Care Code Est Pt Level 3 (33855) Diagnoses Acute left-sided low back pain without sciatica M54.50 Chronicity: acute Sciatica presence: without sciatica
== END 2025-01-03 10:49 | disposition home or self-care (01) ==
PROVIDERS: PCP Internal Medicine; Visit Provider Family Medicine
DX: M54.50 Low back pain, unspecified (principal); Z13.9 Encounter for screening, unspecified

== ENCOUNTER → 2025-01-03 09:15 | Outpatient (BNVA) | payer MEDICARE, OTHER, SELFPAY | PROVIDERS: PCP Internal Medicine | DX: M54.50 Low back pain, unspecified (principal) | CPT/HCPCS: 81003; 99212 ==

== ENCOUNTER 2025-01-06 11:14 | Outpatient (AMB) | payer MEDICARE, OTHER, SELFPAY ==
[2025-01-06 11:20] VITALS: BP 120/80; PULSE 56; TEMP 36.6; O2SAT 97; BMI 42.4
--- NOTE | 2025-01-06 11:20 | AM.OFFWIN_ITS ---
Intake Vital Signs 01/06/25 11:20 Height 6 ft 2 in Weight 330 lb BMI 42.4 BP 120/80 Blood Pressure Location Lt brachial Position Sitting Pulse 56 Pulse Source Pulse Oximeter Temp 97.9 F Temp Source Oral Pulse Oximetry (%) 97 Oxygen Delivery Method Room Air Intake Visit Reasons: EP LT lower lt back pain, problem urinating still Intake Note: pt is here for left lower back pain Patient Tobacco Use Status: Never used Tobacco Accompanied by: Self / Same As Patient Allergies grass pollen-jacoby, standard [Grass Pollen-Jacoby,Std] Allergy (Mild, Verified 01/06/25 11:22) Unknown pollen extracts [POLLEN] Allergy (Mild, Verified 01/06/25 11:22) Unknown zolpidem [Ambien] Allergy (Unknown, Verified 01/06/25 11:) Unknown house dust Allergy (Verified 01/06/25 11:22) Unknown environmental allergies Adverse Reaction (Verified 01/06/25 11:22) Sinus Inflammation Do you need a note to return to daycare/school/sports/work: Yes HPI HPI Comments History of Present Illness Details This is a 69-year-old male with a past medical history of hypertension, hyperlipidemia and paroxysmal atrial fibrillation currently maintained on Xarelto presenting for a 3rd visit for evaluation of left low back pain that now radiates to his left lower abdomen. Patient reports having dark urine, frequent urination without dysuria. Patient has been prescribed prednisone, cyclobenzaprine and tramadol however he states that his pain persists and has worsened. Patient denies having any fevers, chills, nausea, vomiting or diarrhea. PFSH Medical History Bleeding hemorrhoids HTN (hypertension) Acute knee pain PAF (paroxysmal atrial fibrillation) Surgical History Hx of foot surgery History of tonsillectomy and adenoidectomy History of deviated nasal septum Hx of cholecystectomy History of mandibular surgery Family History Father CVD (cardiovascular disease) Mother No problems noted. Social History Alcohol intake: never Patient Tobacco Use Status: Never used Tobacco Current occupational status: retired Review of Systems Const All systems reviewed & are unremarkable except as noted in HPI and below Denies body aches, Denies chills, Denies fatigue and Denies fever(s) Eyes Reports no additional complaints ENT Reports no additional complaints Card Reports no additional complaints Resp Reports no additional complaints GI Denies diarrhea, Denies nausea and Denies vomiting Reports no additional complaints, Denies dysuria, Reports flank pain (left), Denies testicular pain, Reports urinary frequency, Reports urinary hesitancy and Reports urinary urgency Musc Reports back pain (left low back) Skin/Breast Reports system reviewed and no additional complaints, except as documented Neuro Reports no additional complaints Psych Reports no additional complaints Endo Reports no additional complaints and Denies fatigue Vinod/Lymph Reports no additional complaints Aller/Immun Reports no additional complaints Physical Exam Const General: cooperative, no acute distress, well developed, alert, awake and Physically active Nutritional Appearance: obese Orientation/consciousness: patient oriented x3 Limitations: ambulation with cane GI Inspection: Yes normal to inspection, No Abdominal wall edema and No distended Palpation (GI): Soft to palpation and Tenderness to palpation present (GI) in the LLQ; not suprapubicly Auscultation: normal bowel sounds General: Yes Bimanual renal exam normal bilaterally, Yes bladder normal to palpation and Yes no CVA tenderness Back/Spine/Pelvis Other: Mild tenderness to palpation left mid to lower lumbar muscular tenderness, no midline lumbar tenderness, no CVAT bilaterally Back: no CVA tenderness Skin General skin exam: no rashes or lesions noted Neuro General: patient oriented x3 Psych Appearance: grossly normal Mental Status: mental status grossly normal Insight: Good insight present (Psych) Judgement: Good judgement present (Psych) Results Reviewed Results Reviewed: Urinalysis is reviewed. There is no evidence of gross hematuria. Urine culture will be obtained. Assessment & Plan Assessment & Plan (1) Left flank pain: Comment: Urinalysis is not consistent with an acute urinary tract infection however patient may have nephrolithiasis. Code(s): R10.9 - Unspecified abdominal pain Plan: Urine culture will be obtained, patient sent to the [facility] emergency department for CT imaging, laboratories and pain control. Expect called to [facility] at 11:45am. (2) Left low back pain: Comment: Likely consistent with a urinary etiology. Patient will be sent to the emergency department for further evaluation and care. Code(s): M54.50 - Low back pain, unspecified Qualifiers: Chronicity: acute Sciatica presence: without sciatica Qualified Code(s): M54.50 - Low back pain, unspecified Plan: ED evaluation at [facility] -- Expect called to [facility] at 11:45am. Orders: Orders Urine Culture Today R35.0 - Frequency of micturition Coding Level of Care Code Est Pt Level 4 (14484) Diagnoses Left flank pain R10.9 Acute left-sided low back pain without sciatica M54.50 Chronicity: acute Sciatica presence: without sciatica Time Spent (min) 20
--- OUTSIDE RECORDS SUMMARY | 2025-01-06 13:55 | XMS_ITS ---
Author Organization [facility] Address [address] [place] [address] Care Team Providers Care Fig Bar Machine Operator Name Role Phone Blue Acosta MD Primary Care Provider Milli Jimenez Unavailable [phone] Allergies Allergen (clinical drug ingredient) Drug/Non Drug [...] 024 Encounters Encounter Location Date Provider Diagnosis [facility] [place] [address] [place] [address] 05/20/2024 Milli Yost Other hammer toe(s) (acquired), [...] Mahin JORGE GDOB:[birth year] (68 yo M)Acc No.[id number]:05/20/2024 PROGRESS NOTES Patient:?Mahin Jorge Madan Provider:?Milli Yost DPM :1955???Age:68 Y???Sex:Male Max e:05/20/2024 [place] [place] Pcp:Blue Acosta MD Subjective: * Chief [...] Yost DPM Date:?03/2024 Generated for Navjot mccall/Janay/Kristy on:?01/06/2025 01:55 PM EDT History and Physical Notes * [...]
--- OUTSIDE RECORDS SUMMARY | 2025-01-06 13:55 | XMS_ITS ---
Author Organization Blue Acosta MD Address [address] [place], [place] [id number] Care Team Providers Care Ticket Agent Name Role Phone Blue Acosta Primary Care Provider [phone] Results Component Value Reference Range Notes Liver Panel Reviewed date:01/02/2025 12:30:46 PM Interpretation: Performing Lab:[address] [address] Notes/Report: Bilirubin Total 0.6 0.0-1.0 mg/dL Bilirubin Direct 0.3 0.0-0.5 mg/dL Aspartate Amino Transferase 29 5-37 U/L Alanine Aminotransferase 22 0-40 U/L Total Protein 7.6 6.5-8.0 g/dL Albumin Level 3.9 3.5-5.0 g/dL Alkaline Phosphatase 80 39-117 U/L Glucose Fasting Reviewed date:01/02/2025 12:30:54 PM Interpretation: Performing Lab:[address] [phone] Notes/Report: Glucose Fasting 118 60-99 mg/dL A fasting glucose from 100-125 mg/dl is considered impaired (pre-diabetes). Lipid Panel with Reflex Reviewed date:01/02/2025 12:31:05 PM Interpretation: Performing Lab:[address] [address] Notes/Report: Triglycerides 118 <150 mg/dL Desirable Triglyceride: [...] A1c Reviewed date:01/03/2025 06:16:13 PM Interpretation: Performing Lab:[facility], [address] [place] [phone] Notes/Report: Hemoglobin A1c % 5.6 <6.0 % [...] average glucose, using the formula of the V6X-Sraomlp Average Glucose study (ADAG), Diabetes Care, Vol.31,#8, May. 2007 REASON FOR VISIT FASTING LIPIDS Encounters Encounter Location Date Provider Diagnosis Blue Acosta MD [address] [place] [address] [place] [phone] 01/02/2025 Blue Acosta Mixed hyperlipidemia E78.2 and Prediabetes R73.09 Assessments Encounter Date Diagnosis (ICD Code) Assessment Notes Treatment Notes Treatment Clinical Notes Section Notes 01/02/2025 Mixed hyperlipidemia (ICD-10 - E78.2) 01/02/2025 Prediabetes (ICD-10 - R73.09) Plan Of Treatment Next Appt Details Provider Name:Blue garrido, 01/09/2025 09:15:00 AM, [address] [place] [address], Suite [facility], [place], [place], [phone], Provider Name:Blue garrido, 07/10/2025 07:00:00 AM, [address] [place] [address], [address], [place], [place], [phone], Provider Name:Blue Arechiga ier, 07/16/2025 08:00:00 AM, [address] [facility], [address], [place], [place], [phone], Progress Notes * Mahin AMBROCIO GDOB:[birth year] (69 yo M)Acc No.[id number]:01/02/2025 Progress Note Patient:?Mahin AMBROCIO Provider:?Blue Acosta MD :1955???Age:69 Y???Sex:Male Max e:01/02/2025 Address:[address] [place], [place] [phone] Subjective: * Chief Complaints: * ???1. FASTING LIPIDS. * Medical History:? Objective: * Vitals:? Assessment: * Assessment: 1.?Mixed hyperlipidemia - E7 8.2 (Primary)???2.?Prediabetes - R73.09??? Plan: * Treatment: 2.?Prediabetes?LAB: Liver Panel (Collection Date & Time - 01/02/2025 08:00 AM) ?LAB: Glucose Fasting (Collection Date & Time - 01/02/2025 08:00 AM) ?LAB: Lipid Panel with Reflex (Collection Date & Time - 01/02/2025 08:00 AM) ?LAB: Hemoglobin A1c (Collection Date & Time - 01/02/2025 08:00 AM) * Procedure Codes:?09561 VENIP UNCT, ROUTINE* * * The named appointment provid er may or may not be the originator of this progress note, and it is not deemed complete until electronically signed by the appointment provider. Sign off status: Pending * Provider:?Blue Acosta MD Date:?0 01/02/2025 Generated for Printi ng/Faxing/eTransmitting on:?01/06/2025 01:55 PM EDT
--- OUTSIDE RECORDS SUMMARY | 2025-01-06 13:55 | XMS_ITS ---
Author Organization [facility] Address [address] [place] [address] Care Team Providers Care Surg Physician Asst Name Role Phone Blue Acosta MD Primary Care Provider Milli Jimenez Unavailable [phone] Allergies Allergen (clinical drug ingredient) Drug/Non Drug [...] 024 Encounters Encounter Location Date Provider Diagnosis [facility] [place] [address] [place] [address] 04/29/2024 Milli Yost Other hammer toe(s) (acquired), [...] Mahin JORGE GDOB:[birth year] (68 yo M)Acc No.[id number]:04/29/2024 Progress Notes Patient:?Mahin Jorge Provider:?Milli Yost DPM :1955???Age:68 Y???Sex:Male Max e:04/29/2024 Address:[address] [place], [place] [id number] Pcp:Blue Acosta MD Subjective: * Chief Complaints: [...] , a light compressive dressing.? * Procedure Codes:?68625 X-RAY EXAM OF LEFT FOOT 3V, Modifiers: [...] Yost DPM Date:? Generated for Navjot mccall/Janay/eTransmitting on:?01/06/2025 01:55 PM EDT History and Physical [...]
--- OUTSIDE RECORDS SUMMARY | 2025-01-06 13:55 | XMS_ITS ---
Author Organization Blue Acosta MD Address [address] [place], [place] [phone] Care Team Providers Care Excellence Coach Name Role Phone Blue Acosta Primary Care [...] Date Provider Diagnosis Blue Acosta MD [address] [place] [address] [place] [phone] 07/10/2024 Blue Acosta Essential hypertensi on I10 [...] Reason: Provider Name:Blue garrido, 01/09/2025 09:15:00 AM, [address] [place] [address], [address] [place] [address], [phone], Provider Name:Blue garrido, 07/10/2025 07:00:00 AM, [address] [place] [address], [address] [facility], [place], [place], [phone], Provider Name:Blue garrido, 07/16/2025 08:00:00 AM, [address] [place] [address], [address] [place] [address], [phone], Progress Notes * Mahin AMBROCIO GDOB:[birth year] (68 yo M)Acc No.[id number]:07/10/2024 Patient:?Mahin Ambrocio Provider:?Blue Acosta MD :1955???Age:68 Y???Sex:Male Max e:07/10/2024 Address:[address] [place], [place] [phone] Subjective: * Chief Complaints: * ???Review labs [...] 1 cat. no Travel outside of the [facility], [place]. * Medications:?TakingGabapenti n 300 MG Capsule [...] mg/dL ?Urine Blood Negative Negative - ?Specific Angela - Urine 1.010 1.005-1.025 - ?Urine Protein [...] Casts Urine 0-2 0-2 - /LPF ???Lab:[facility] [place]. P michelle Fast (Order Date - 07/03/2024) [...] MD Date:?0 07/10/2024 Generated for Navjot mccall/Janay/eTransmitting on:?01/06/2025 01:55 PM [...]
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
--- OUTSIDE RECORDS SUMMARY | 2025-01-06 13:56 | XMS_ITS ---
Author Organization Blue Acosta MD Address [address] [place], [place] [id number] Care Team Providers Care Fibre Composite Technician Name Role Phone Blue Acosta Primary Care Provider [phone] Results Component Value Reference Range Notes Complete Blood Count Auto Di ff Reviewed date:07/03/2024 05:03:13 PM Interpretation: Performing Lab:[facility], [address] [place] [phone] Notes/Report: White Blood Count 8.5 4.8-10.8 X10*3/uL [...] NRBC Abs Auto 0.000 0.0-0.012 X10*3/uL Comprehensive Willis. Panel Fa st Reviewed date:07/03/2024 12:20:41 PM Interpretation: Performing Lab:[facility], [address] [place] [phone] Notes/Report: Sodium 140 135-145 mmol/L Potassium 4.2 3.3-5.1 mmol/L Chloride 105 96-108 mmol/L Carbon Dioxide 28 22-29 mmol/L Anion Gap 11 12-20 Blood Urea Nitrogen 16 9-16 mg/dL Creatinine 0.91 0.5-1.4 mg/dL Estimated Glomerular Filt Rate > 60 NOTE: For -Peruvian individuals, multiply the result by 1.210. Chronic [...] Panel Reviewed date:07/03/2024 12:16:21 PM Interpretation: Performing Lab:[facility], [address] [place] [phone] Notes/Report: Triglycerides 103 <150 mg/dL Desirable Triglyceride: [...] (Free>4and<10) Reviewed date:07/03/2024 12:17:59 PM Interpretation: Performing Lab:[address] [phone] Notes/Report: PSA,Total (Free>4and<10) 0.31 0.00-4.00 ng/mL A [...] Random Reviewed date:07/03/2024 12:30:42 PM Interpretation: Performing Lab:[facility], [address] [place] [phone] Notes/Report: Creatinine Urine 52.54 Microalbumin Urine < 5.0 Microalbum/Creatinine Ratio Ur TNP <30 ug/mg cr Unable to calculate albumin/creatinine ratio due to low microalbumin or creatinine result. Hemoglobin A1c Reviewed date:07/03/2024 12:16:31 PM Interpretation: Performing Lab:[address] [phone] Notes/Report: Hemoglobin A1c % 5.6 <6.0 % [...] average glucose, using the formula of the R2S-Blxydet Average Glucose study (ADAG), Diabetes Care, Vol.31,#8, May. 2007 UA ClnCatch+Micro w/rflx Cul t Reviewed date:07/03/2024 12:27:43 PM Interpretation: Performing Lab:[facility], [address] [place] [phone] Notes/Report: Urine, Clean Catch Color Urine Yellow Appearance Urine Clear PH 5.5 5.0-9.0 Glucose Urine UA Negative Negative mg/dL Urine Blood Negative Negative Specific [place] - Urine 1.010 1.005-1.025 Urine Protein Negative [...] Location Date Provider Diagnosis Blue Acosta MD [address] [place] [address] [address] [place], [place] [id number] 07/03/2024 Blue Acosta Mixed hyperlipidemia E78.2 ; [...] 09:15:00 AM, [address], [address], [place], [place], [id number], Provider Name:Blue Arechiga ier, 07/10/2025 07:00:00 AM, [address], [address], [place], [place], [id number], Provider Name:Blue Arechiga ier, 07/16/2025 08:00:00 AM, [address], [address], [place], [place], [id number], Progress Notes * Mahin AMBROCIO GDOB:[birth year] (69 yo M)Acc No.[id number]:07/03/2024 Progress Note Patient:?LUISITO Mahin Madan Provider:?Blue Acosta MD :1955???Age:68 Y???Sex:Male Max e:07/03/2024 Address:[address] [place], [place] [id number] Subjective: * Chief Complaints: * ???1. FASTING LABS. * Medical History:? Objective: * Vitals:? Assessment: * Assessment: 1.?Encounter for immunizatio n - Z23 (Primary)???2.?Mixed hyperlipidemia - E78.2???3.?Essential hypertension - I10???4.?Prediabetes - R73.09??? Plan: * Treatment: 2.?Essential hypertension?LAB: Complete Blood Count Auto Diff (Collection Date & Time - 07/03/2024 07:30 AM) ?LAB: Comprehensive Willis. Panel Fast (Collection Date & Time - [...] Time - 07/03/2024 07:30 AM) ?LAB: Comprehensive Willis. Panel Fast (Collection Date & Time - [...] Office Staff on Left Deltoid * Procedure Codes:?79236 FLU V AC NO PRSV 4 JOELLE 3 YRS+, G0008 ADMN FLU VAC NO FEE SCHED SAME DAY, 52122 VENIPUNCT, ROUTINE* * * The named appointment provid er may or may not be the originator of this progress note, and it is not deemed complete until electronically signed by the appointment provider. Sign off status: Pending * Provider:?Blue Acosta MD Date:?0 07/03/2024 Generated for Navjot mccall/Janay/eTransmitting on:?01/06/2025 01:56 PM EDT
--- OUTSIDE RECORDS SUMMARY | 2025-01-06 13:56 | XMS_ITS | Patient Health Record ---
Author Organization [facility]ie [place] Address [address] [place] [address] Care Team Providers Care Health Care Technician Name Role Phone Blue Acosta MD Primary Care Provider Milli Jimenez Unavailable [phone] Allergies Allergen (clinical drug ingredient) Drug/Non Drug [...] W/U Status Risk Notes Problem Tinea unguium (710733222) Tinea unguium (B35.1) Active confirmed Problem Acquired hammer toe of left foot (3740719188008494 ) Other hammer toe(s) (acquired), left foot (M20.42) Active confirmed Problem Localized, primary osteoarthritis of the ankle and/or foot (764200723) Arthritis of joint of lesser toe, left (M19.072) Active confirmed Problem Ischemic ulcer of left foot, 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) Active confirmed Response to treatment Vital Signs Blood pressure diastolic 58 mm Hg 05/20/2024 Height 6ft3in in 05/20/2024 Blood pressure systolic 122 mm Hg 05/20/2024 Weight 315 lbs 05/20/2024 BMI 39.37 kg/m2 05/20/2024 Encounters Encounter Location Date Provider Diagnosis Surgery [facility] [address] [place] [address] 04/23/2024 Milli Schulza [facility] [address] [place] [address] 04/10/2024 Milli [place] Pain in left toe(s) M79.675 ; Other hammer toe(s) (acquired), left foot M20.42 and Exostosis of toe M89.8X7 [address] [address] 04/29/2024 Milli Perica Other hammer toe(s) (acquired), left foot M20.42 and Exostosis of toe M89.8X7 [address] [address] 05/06/2024 Milli Perica Other hammer toe(s) (acquired), left foot M20.42 and Exostosis of toe M89.8X7 [address] [address] 05/20/2024 Milli Perica Other hammer toe(s) (acquired), left foot M20.42 and Exostosis of toe M89.8X7 [address] [address] 04/23/2024 Milli Perica [address] [address] 04/24/2024 Milli Yost Assessments Encounter Date Diagnosis [...] X ray : Foot, left 3V 05/06/2024 98811-[id number] NAIL, 1-5 08/17/2023 19154-[id number] NAIL, 1-5 03/31/2016 28342- Debride <25 sq cm 09/02/2013 01235- Debride <25 sq cm 08/17/2023 51431-[id number] SKIN/TISSUE 07/07/2013 36981-[id number] SKIN/TISSUE 07/22/2013 53590-[id number] SKIN/TISSUE 08/12/2013 Insurance Providers Payer Name Payer Address Payer Phone Subscriber Number Group Number Insured Name Patient Relationship to Insured Coverage Start Date Coverage End Date Medicare National Govt S[employer] [address] [place] [address] [id number] Mahin Ha Self - patient is the insured vIPtela ([employer]) [address] [place] [address] [id number] Mahin Ha Self - patient is [...]
--- OUTSIDE RECORDS SUMMARY | 2025-01-06 13:56 | XMS_ITS ---
Author Organization [facility] Address [address] [place] [address] Care Team Providers Care Resident Service Coordinator Name Role Phone Blue Acosta MD Primary Care Provider Corby Michel [phone] Allergies Allergen (clinical drug ingredient) Drug/Non Drug [...] Risk Notes Problem Benign neoplasm of colon (98903746) Serrated adenoma of colon (D12.6) Active confirmed Problem Serrated polyp of colon (030044752) Serrated polyp of colon (K63.5) Active confirmed Vital Signs Blood pressure systolic 111 mm Hg 12/11/19 25 Blood pressure diastolic 11 mm Hg 025 Height 74 in 12/11/2024 Weight 337 lbs 12/11/2024 BMI 43.26 kg/m2 12/11/2024 Procedures Procedure Date Ordered Date Performed Result Body Sit e COLONOSCOPY 12/11/2024 N/A Encounters Encounter Location Date Provider Diagnosis [facility] [address] [place] [address] 12/11/2024 Corby Sanchez History of adenomato us [...] Name:Corby Herndon Daniel , 03/20/2025 09:30:00 AM, [address] [place] [address] , [place], [place], [id number], Progress Notes * KYRIE JORGE GDOB:[birth year] (69 yo M)Acc No.[id number]:12/11/2024 Progress Notes Patient:?KYRIE JORGE Provider:?Corby Sanchez MD :1955???Age:69 Y???Sex:Male Max e:12/11/2024 Address:[address] [place] [address] Pcp:Blue Acosta MD Subjective: * Chief Complaints: * ???1. Patient presents today for a COLON SCREENING. * Medical History:?Colonoscopy 12/29/2005-negative for polyps; colonoscopy in 04/2012 with a tiny serrated adenoma of the cecum, diverticulosis, and internal hemorrhoids, ERCP for choledocholithiasis in 06/2005, Duodenal ulcers in 2004, Denies SD,DM,CVA,Lung disease,renal disease, HTN, Sleep apnea--uses a nasal CPAP, Atrial fibrillation, Hyperlipidemia, Colonoscopy 10/2019 with removal of only hyperplastic polyps, Negative CT of abdomen/pelvis 08/2021, except diverticulosis, Negative EGD in [place] for vomiting in 2022. * Surgical History:?Cholecyste [...] 2 days before the colonoscopy * Procedure Codes:?61426 DIAGN OSTIC COLONOSCOPY * Preventive Medicine:? ??Counseling:?Care goal follow-up plan:?Above Normal BMI Follow-up?Giving encouragement to exercise,?BMI management provided?Yes.? * * The named appointment provid er may or may not be the originator of this progress note, and it is not deemed complete until electronically signed by the appointment provider. Sign off status: Pending * Provider:?Corby Sanchez MD Date:? 025 Generated for Navjot mccall/Janay/Kristy on:?01/06/2025 01:56 PM EDT
--- OUTSIDE RECORDS SUMMARY | 2025-01-06 13:57 | XMS_ITS ---
Author Organization [facility] Address [address] [place] [address] Care Team Providers Care Night Filler Name Role Phone Blue Acosta MD Primary Care Provider Milli Jimenez Unavailable [phone] Allergies Allergen (clinical drug ingredient) Drug/Non Drug [...] 024 Encounters Encounter Location Date Provider Diagnosis [facility] [place] [address] [place] [address] 05/06/2024 Milli Yost Other hammer toe(s) (acquired), [...] Topical: bacitacin applied Removal of: sutures performed [facility] sterile forceps/suture scissors or #15 blade, area cleaned with alcohol prior to removal Progress Notes * Mahin JORGE GDOB:[birth year] (68 yo M)Acc No.[id number]:05/06/2024 Progress Notes Patient:?Mahin Jorge Madan Provider:?Milli Yost DPM :1955???Age:68 Y???Sex:Male Max e:05/06/2024 [facility] Pcp:Blue Acosta MD Subjective: * Chief Complaints: [...] with alcohol prior to removal.? * Procedure Codes:?52782 X-RAY EXAM OF LEFT FOOT 3V, Modifiers: [...] Yost DPM Date:? Generated for Navjot mccall/Janay/Tanoitting on:?01/06/2025 01:56 PM EDT History and Physical Notes * [...]
== END 2025-01-06 11:53 | disposition home or self-care (01) ==
PROVIDERS: PCP Internal Medicine; Visit Provider Physician Assistant
DX: R10.9 Unspecified abdominal pain (principal); M54.50 Low back pain, unspecified; Z13.9 Encounter for screening, unspecified

== ENCOUNTER 2025-01-06 12:04 | Emergency (ER) | payer MEDICARE, OTHER, SELFPAY ==
--- NOTE | ~2025-01-06 | US_ITS ---
CLINICAL HISTORY: L testicular pain. Ultrasound scrotum. COMPARISON: None Technique: Real time sonographic imaging, including color-flow imaging, was performed by the electronic parts designer. Multiple goodwill representative static images were saved for review. FINDINGS: Right side: Right testicle is normal in size and echotexture. Normal color flow and spectral tracing. No hydrocele or varicocele. Mild enlargement of the tail of the epididymis with small echogenic foci. Echogenic foci likely represent small calcifications. There is mildly increased flow within the tail of the epididymis. Right testicle: 3.0 x 1.9 x 2.1 cm Left side: Left testicle is normal in size and echotexture. Normal color flow and spectral tracing. No hydrocele or varicocele. Normal left epididymis. Left testicle: 3.0 x 1.9 x 2.1 cm IMPRESSION: 1. No evidence of testicular torsion. 2. Mildly increased vascularity within the tail of the prominent right epididymis raises suspicion for epididymitis This document has been electronically signed by: Levy Bonilla MD on 01/06/2025 18:16:24
--- NOTE | ~2025-01-06 | CT_ITS ---
EXAMINATION: CT ABDOMEN AND PELVIS WITHOUT CONTRAST CLINICAL INFORMATION: Left flank pain. COMPARISON: September 05, 2021. TECHNIQUE: Multidetector volumetric imaging was performed from the superior aspect of the liver through the pubic symphysis. Sagittal and coronal reformatted images were obtained on the technologist's workstation. This CT examination was performed using dose optimization techniques as appropriate, variously including the following: *Automated exposure control *Adjustment of mA and/or kV according to patient size (this includes techniques or standardized protocols for targeted exams where dose is matched to indication/reason for exam; i.e. extremities or head) *Use of iterative reconstruction technique DLP: 1401 mGy centimeter. FINDINGS: Limited evaluation of the intra-abdominal organs and vascular structures due to lack of IV contrast. LUNG BASES: Small trace left-sided pleural effusion. LIVER, GALLBLADDER, AND BILIARY TREE: Liver measures 15 cm. Status post cholecystectomy. No intrahepatic or extrahepatic biliary ductal dilatation. PANCREAS: No peripancreatic fluid collections. No main pancreatic ductal dilatation. Decreased attenuation throughout the pancreatic parenchyma. SPLEEN: 9 cm. ADRENAL GLANDS: No nodular lesions. KIDNEYS AND URETERS: No hydronephrosis or nephrolithiasis in either kidney. 3.3 cm exophytic cystic lesion posterior midportion right kidney. BLADDER: Fluid-filled. GASTROINTESTINAL TRACT: Mild mesenteric edema pattern. Abundant stool. No intestinal obstruction pattern. Residual contrast throughout the left hemicolon. No pneumatosis intestinalis. No pneumoperitoneum. No ascites. Appendix is not identified. ABDOMINAL WALL: Fat-containing umbilical hernia, moderate to large volume. Fat-containing left inguinal hernia, small. LYMPH NODES: No lymphadenopathy, mesenteric or retroperitoneal. VASCULAR: No aneurysm, abdominal aorta. Calcified plaques throughout the abdominal aorta wall and iliac arteries the origin of the mesenteric arteries and main renal arteries. PELVIC VISCERA: Inadequate evaluation. OSSEOUS STRUCTURES: Osteoarthrosis both hips. Syndesmophyte formation and both sacroiliac joints. Multilevel lower lumbar spondylosis and lower thoracic spondylosis. Grade 1 anterolisthesis L4-5 on a degenerative basis. CT/CT abdomen pelvis wo IV con IMPRESSION: No hydronephrosis or nephrolithiasis. Nonspecific mild mesenteric edema pattern. Fat-containing umbilical hernia, moderate to large volume. Small left-sided pleural effusion. 3.3 cm exophytic cyst, right kidney. Fleischner guidelines were followed. Electronically signed by: Pete Balbuena MD 01/06/2025 02:14 PM EDT RP
--- NOTE | ~2025-01-06 | US_ITS ---
CLINICAL HISTORY: L testicular pain. Ultrasound scrotum. COMPARISON: None Technique: Real time sonographic imaging, including color-flow imaging, was performed by the metal washing machine operator. Multiple financial foundations representative static images were saved for review. FINDINGS: Right side: Right testicle is normal in size and echotexture. Normal color flow and spectral tracing. No hydrocele or varicocele. Mild enlargement of the tail of the epididymis with small echogenic foci. Echogenic foci likely represent small calcifications. There is mildly increased flow within the tail of the epididymis. Right testicle: 3.0 x 1.9 x 2.1 cm Left side: Left testicle is normal in size and echotexture. Normal color flow and spectral tracing. No hydrocele or varicocele. Normal left epididymis. Left testicle: 3.0 x 1.9 x 2.1 cm IMPRESSION: 1. No evidence of testicular torsion. 2. Mildly increased vascularity within the tail of the prominent right epididymis raises suspicion for epididymitis This document has been electronically signed by: Levy Bonilla MD on 01/06/2025 18:16:24
--- NOTE | 2025-01-06 12:25 | ED_ITS ---
HPI - General Adult General Chief complaint: Urogenital-Male Stated complaint: Abd pain, sent from urgent care Time Seen by Provider: 01/06/25 16:19 Source: patient, RN notes reviewed and old records reviewed Mode of arrival: ambulatory History of Present Illness ED Provider: oLuise Callejas PA-C HPI narrative: 69-year-old male with a past medical history HTN, HLD, proximal AFib on Xarelto, presenting to ED sent in from urgent care complaining of left-sided low back pain radiating to left lower abdomen/testicle x 6 days. Admits has been seen and treated at urgent care 3x, prescribed Prednisone, Flexeril, Celecoxib, and Tramadol which she has been taking without relief. Reports urinary frequency & urinating in small amounts. Denies fever, chills, nausea, vomiting, dysuria, hematuria Related Data Home Medications ?Medication ?Instructions ?Recorded ?Confirmed metoprolol succinate 50 mg 50 mg PO DAILY 03/22/21 01/03/25 tablet,extended release 24 hr triamcinolone acetonide 0.5 % appl topical 03/22/21 01/03/25 topical cream atorvastatin 20 mg tablet 20 mg PO DAILY 07/11/21 01/03/25 gabapentin 300 mg capsule 300 mg PO BEDTIME 07/11/21 01/03/25 multivitamin 1 tab PO DAILY 12/11/22 01/03/25 lisinopril 20 mg tablet 20 mg PO DAILY 01/30/23 01/03/25 Previous Rx's ?Medication ?Instructions ?Recorded chair, wheel (Wheel chair) #1 ea 03/04/21 chair, wheel (Wheel chair) #1 ea 03/04/21 docusate sodium 100 mg capsule 100 mg PO DAILY #60 caps 01/02/24 (Colace) psyllium husk 3.4 gram/5.4 gram 1 tsp PO DAILY #660 grams 01/02/24 oral powder (Metamucil) rivaroxaban 20 mg tablet (Xarelto) 20 mg PO QPM #90 tabs 02/21/24 flecainide 100 mg tablet 100 mg PO Q12H #180 tabs 06/27/24 cyclobenzaprine 5 mg tablet 5 mg PO Q8H PRN Muscle Spasm #10 01/02/25 tabs celecoxib 200 mg capsule 200 mg PO BID PRN pain 5 days #10 01/03/25 caps cyclobenzaprine 10 mg tablet 10 mg PO Q12H PRN muscle spasm 5 01/03/25 days #10 tabs tramadol 50 mg tablet 50 mg PO Q12H PRN pain 5 days #10 01/03/25 tabs levofloxacin 500 mg tablet 500 mg PO DAILY 10 days #10 tabs 01/06/25 Allergies Allergy/AdvReac Type Severity Reaction Status Date / Time grass pollen-jacoby, Allergy Mild Unknown Verified 01/06/25 12:37 standard [Grass Pollen-Jacoby,Std] pollen extracts [POLLEN] Allergy Mild Unknown Verified 01/06/25 12:37 zolpidem [Ambien] Allergy Unknown Unknown Verified 01/06/25 12:37 house dust Allergy Unknown Verified 01/06/25 12:37 environmental allergies AdvReac Sinus Verified 01/06/25 12:37 Inflammation Review of Systems 2 Review of Systems: Yes all other systems are reviewed and are negative Constitutional: Constitutional: Reports as per HPI Neurologic: Denies Sensory deficit (Neuro) [facility] Past Medical History Attestation statement: The following information was validated with the patient. Source: old records reviewed Medical History Bleeding hemorrhoids HTN (hypertension) Acute knee pain PAF (paroxysmal atrial fibrillation) Surgical History Hx of foot surgery History of tonsillectomy and adenoidectomy History of deviated nasal septum Hx of cholecystectomy History of mandibular surgery Family History Family History Father CVD (cardiovascular disease) Mother No problems noted. Social History Social History Alcohol intake: never Patient Tobacco Use Status: Never used Tobacco Advance Directives: No Advance Directives Information Provided: No Do you have a plan to hurt others: No Plan Current occupational status: retired Physical Exam ED Vital Signs: Vital Signs - 24 hr 01/06/25 12:37 Temperature 98.5 F Pulse Rate 61 Respiratory Rate 16 Blood Pressure 147/69 H Pulse Oximetry 96 Oxygen Delivery Method Room Air BMI result Body Mass Index 42.5 Const General: cooperative, healthy appearing and no acute distress Orientation/consciousness: patient oriented x3 Limitations: no limitations HENMT Head: Yes normal to inspection and Yes atraumatic Ears: hearing grossly normal bilaterally General nose exam: Normal external nose present Face and sinus: Yes normal facial exam Eyes General: appearance normal, both eyes and all related structures EOM: EOMs intact bilaterally Neck Neck: Yes normal visual inspection and Yes no meningeal signs Resp Effort & Inspection: normal respiratory effort and no respiratory distress Auscultation: clear to auscultation bilaterally Cardio Rate: regular rate Heart sounds: S1 normal heart sound present and S2 normal heart sound present GI Inspection: Yes normal to inspection Palpation (GI): Soft to palpation, nontender, no guarding and not rigid General: Yes no CVA tenderness Scrotum: scrotum normal, not edematous, not erythematous and no ulcerations Testes: Testes normal, no epidiymal tenderness, no masses, no testicular mass, no testicular swelling and no testicular tenderness Back/Spine/Pelvis Other: No midline cervical/thoracic/lumbar spinous tenderness/step-off or deformity. No reproducible back pain. Back pain produced with movement. No rash Back: no CVA tenderness Skin Rashes: no rashes Wounds: no wounds Neuro General: patient oriented x3, tone normal and no meningeal signs Cranial nerves: Yes CN's II-XII intact bilaterally Gait exam (Neuro): Normal gait present Motor exam (neuro): 5/5 motor strength present throughout Sensory Exam: No Sensory deficit (Neuro) Extrem General: Yes normal to inspection Course Course Course Narrative: This is a rapid medical exam performed by Cristina Birmingham PA-C. The patient is a 69-year-old male with a history of AFib on rivaroxaban and flecainide, hypertension, arthritis, kidney stones who presents from urgent care given need to rule out kidney stones. Associated dysuria, decreased urine output, nausea, vomiting and left flank pain x6 days. He has no CVA tenderness on exam. Plan to obtain screening labs urinalysis and a CT scan. The patient was stable and can return to the waiting room pending his full medical assessment. -1703--leukocytosis of 12.8. H&H at patient's baseline. BUN mildly elevated to 24. Labs otherwise reassuring CT abdomen pelvis wo IV con IMPRESSION: No hydronephrosis or nephrolithiasis. Nonspecific mild mesenteric edema pattern. Fat-containing umbilical hernia, moderate to large volume. Small left-sided pleural effusion. 3.3 cm exophytic cyst, right kidney. Fleischner guidelines were followed. US scrotum doppler IMPRESSION: 1. No evidence of testicular torsion. 2. Mildly increased vascularity within the tail of the prominent right epididymis raises suspicion for epididymitis > Results discussed with patient including worrisome signs and symptoms and strict return precautions, and when to return to the emergency department. They verbalized understanding and feel safe for discharge at this time. Medications Administered Discontinued Medications Generic Name Dose Route Start Last Admin Trade Name Freq PRN Reason Stop Dose Admin Ketorolac Tromethamine 30 mg 01/06/25 16:47 01/06/25 16:59 Ketorolac Tromethamine 30 Mg/Ml Vial IM 01/06/25 16:48 30 mg ONCE ONE Administration Lidocaine 1 patch 01/06/25 16:47 01/06/25 16:59 Lidocaine 4 % Patch Adh..Patch TRANSDERMA 01/06/25 16:48 1 patch ONCE ONE Administration Protocol Oxycodone HCl 5 mg 01/06/25 16:47 01/06/25 16:59 Oxycodone Hcl Immed Release 5 Mg Tablet PO 01/06/25 16:48 5 mg ONCE ONE Administration Medical Decision Making Medical Decision Making MDM Narrative: 69-year-old male with a past medical history HTN, HLD, proximal AFib on Xarelto, presenting to ED sent in from urgent care complaining of left-sided low back pain radiating to left lower abdomen/testicle x 6 days. Reports urinary frequency & urinating in small amounts. On exam vital signs stable, NAD, nontoxic appearing, back pain not reproducible to palpation. Abdomen is soft and nontender. Normal exam. Back pain reproduced with movement/ambulation. No red flag symptoms. Ambulating with steady gait. Concern for MSK pain/strain vs pyelo/UTI vs renal colic vs testicular pathology including torsion vs epididymitis/orchitis. Low suspicion for cauda equina, cord compression, epidural abscess, diverticulitis, appendicitis Plan: Labs, UA, CT AP, ultrasound, pain control, re-evaluate Please refer to course for remaining clinical decision making, interpretation of labs/imaging results, and discussions with consultants and/or family members. Differential Diagnosis Differential Diagnoses: The differential diagnosis associated with the presentation includes As above Admission/Observation Consideration of admission/observation: Escalation of care including admission/observation considered Lab Data MDM Lab Attestation statement: I reviewed the patient's lab results. 01/06/25 13:00 01/06/25 13:00 Labs: Lab Results 01/06/25 01/06/25 Range/Units 13:00 17:00 WBC 12.8 H (4.8-10.8) X10*3/uL RBC 4.34 L (4.60-5.80) X10*6/uL Hgb 13.2 L (14.0-18.0) g/dl Hct 39.8 L (42.0-52.0) % MCV 91.7 (80.0-98.0) fL MCH 30.4 (27.0-33.0) pg MCHC 33.2 (31.0-36.0) g/dl RDW 12.5 (11.0-16.0) % Plt Count 187 (160-400) X10*3/uL MPV 10.0 (9.4-12.4) fL Immature Gran % (Auto) 0.5 H (0.0-0.4) % Neut % (Auto) 69.3 (45-73) % Lymph % (Auto) 20.3 (20-40) % Gage % (Auto) 8.2 (2-11) % Eos % (Auto) 1.2 (0-4) % Baso % (Auto) 0.5 (0-2) % Lymph # (Auto) 2.6 (1.2-4.9) X10*3/uL Gage # (Auto) 1.1 (0.1-1.2) X10*3/uL Eos # (Auto) 0.2 (0.0-0.4) X10*3/uL Baso # (Auto) 0.1 (0.0-0.2) X10*3/uL Abs Immat Gran (auto) 0.07 H (0.00-0.03) X10*3/uL Absolute Neuts (auto) 8.9 H (2.0-8.3) x10*3/uL Absolute Nucleated RBC 0.000 (0.0-0.012) X10*3/uL Nucleated RBC % (auto) 0.0 (0.0-0.2) /100WBC Sodium 140 (135-145) mmol/L Potassium 4.1 (3.3-5.1) mmol/L Chloride 111 H (96-108) mmol/L Carbon Dioxide 22 (22-29) mmol/L Anion Gap 11 L (12-20) BUN 24 H (9-16) mg/dL Creatinine 0.85 (0.5-1.4) mg/dL Estim Creat Clear Calc 130.3 Estimated GFR > 60 Random Glucose 102 (60-115) mg/dL Calcium 8.7 (8.4-10.2) mg/dL Magnesium 1.8 (1.6-2.6) mg/dL Total Bilirubin 0.7 (0.0-1.0) mg/dL AST 18 (5-37) U/L ALT 16 (0-40) U/L Alkaline Phosphatase 69 (39-117) U/L Total Protein 6.7 (6.5-8.0) g/dL Albumin 3.6 (3.5-5.0) g/dL Lipase 23 (8-78) U/L Urine Color Yellow Urine Appearance Clear Urine pH 5.5 (5.0-9.0) Ur Specific [place] 1.015 (1.005-1.025) Urine Protein Negative (Neg-Trace) mg/dL Urine Glucose (UA) Negative (Negative) mg/dL Urine Ketones Negative (Negative) mg/dL Urine Blood Negative (Negative) Urine Nitrite Negative (Negative) Ur Leukocyte Esterase Negative (Negative) Independent Interpretation I performed an independent interpretation of an: Ultrasound Radiology Impression Discussion of test interpretation with radiology: I have reviewed the radiologist's reading. Independent Historian Clinical information obtained from an independent historian. History obtained from or confirmed by: Spouse External Record Review External record reviewed: Inpatient record, Office record, Outpatient record, Prior outpatient labs, Prior outpatient radiology, Primary care record and Outside ED record Tests considered The following testing was considered but not selected: As above Prescription Management I considered prescription management with: Pain Medication Chronic Conditions Patient?s care impacted by: Hypertension and Other (A.fib) Social Determinants Patient?s care significantly limited by Social Determinants of Health including: Other Social Determinant of Health Discharge Plan Discharge Clinical Impression: Epididymitis Patient Disposition: Home, Self-Care Instructions: Epididymitis (ED) Additional Instructions: You have epididymitis. Levaquin as an antibiotic please take as prescribed Please have close follow-up with urology If her symptoms persist or worsen or pain becomes unbearable, you are unable to urinate, have fever or chills return to the emergency department CT abdomen pelvis wo IV con IMPRESSION: No hydronephrosis or nephrolithiasis. Nonspecific mild mesenteric edema pattern. Fat-containing umbilical hernia, moderate to large volume. Small left-sided pleural effusion. 3.3 cm exophytic cyst, right kidney. You need to follow up with your primary care doctor pertaining to your pleural effusion and right kidney cyst for further monitoring Follow up with General surgery for your umbilical hernia Prescriptions: New levofloxacin 500 mg tablet 500 mg PO DAILY 10 Days Qty: 10 0RF No Action Xarelto 20 mg tablet 20 mg PO QPM Qty: 90 3RF flecainide 100 mg tablet 100 mg PO Q12H Qty: 180 3RF (DME) Wheel chair Kit See Rx Instructions .ROUTE .MEDSUPPLY Qty: 1 0RF Rx Instructions: As directed (DME) Wheel chair Kit See Rx Instructions .ROUTE .MEDSUPPLY Qty: 1 0RF Rx Instructions: As directed triamcinolone acetonide 0.5 % cream topical metoprolol succinate 50 mg tablet extended release 24 hr 50 mg PO DAILY gabapentin 300 mg capsule 300 mg PO BEDTIME atorvastatin 20 mg tablet 20 mg PO DAILY multivitamin Tablet 1 tab PO DAILY lisinopril 20 mg tablet 20 mg PO DAILY celecoxib 200 mg capsule 200 mg PO BID PRN (Reason: pain) 5 Days Qty: 10 0RF cyclobenzaprine 10 mg tablet 10 mg PO Q12H PRN (Reason: muscle spasm) 5 Days Qty: 10 0RF tramadol 50 mg tablet 50 mg PO Q12H PRN (Reason: pain) 5 Days Qty: 10 0RF Metamucil 3.4 gram/5.4 gram powder 1 tsp PO DAILY Qty: 660 0RF Rx Instructions: mix into at least 4 oz water or juice before administering docusate sodium [Colace] 100 mg capsule 100 mg PO DAILY Qty: 60 2RF cyclobenzaprine 5 mg tablet 5 mg PO Q8H PRN (Reason: Muscle Spasm) Qty: 10 0RF Referrals: [facility] [Provider Group] - 5 days Blue Acosta MD [Primary Care Provider] - 3 days Print Language: Czech
[2025-01-06 12:37] VITALS: BP 147/69; PULSE 61; RESP 16; TEMP 36.9; O2SAT 96; BMI 42.5
[2025-01-06 13:07] LABS: MANUAL DIFF FLAG NO
[2025-01-06 13:08] LABS: Basophils Absolute Auto 0.1 X10*3/uL (0.0-0.2); Basophils Percent Auto 0.5 % (0-2); Eosinophils Absolute Auto 0.2 X10*3/uL (0.0-0.4); Eosinophils Percent Auto 1.2 % (0-4); Hematocrit 39.8 % (42.0-52.0); Hemoglobin 13.2 g/dl (14.0-18.0); Imm Gran Abs Auto 0.07 X10*3/uL (0.00-0.03); Imm Gran Pct Auto 0.5 % (0.0-0.4); Lymphocytes Absolute Auto 2.6 X10*3/uL (1.2-4.9); Lymphocytes Percent Auto 20.3 % (20-40); Mean Corpuscular HGB Conc 33.2 g/dl (31.0-36.0); Mean Corpuscular Hemoglobin 30.4 pg (27.0-33.0); Mean Corpuscular Volume 91.7 fL (80.0-98.0); Monocytes Absolute Auto 1.1 X10*3/uL (0.1-1.2); Monocytes Percent Auto 8.2 % (2-11); Neutrophils Absolute Auto 8.9 x10*3/uL (2.0-8.3); Neutrophils Percent Auto 69.3 % (45-73); Platelet Count 187 X10*3/uL (160-400); Red Blood Count 4.34 X10*6/uL (4.60-5.80); Red Cell Distribution Width 12.5 % (11.0-16.0); White Blood Count 12.8 X10*3/uL (4.8-10.8)
[2025-01-06 13:34] LABS: Alanine Aminotransferase 16 U/L (0-40); Albumin Level 3.6 g/dL (3.5-5.0); Alkaline Phosphatase 69 U/L (39-117); Anion Gap 11 (12-20); Aspartate Amino Transferase 18 U/L (5-37); Bilirubin Total 0.7 mg/dL (0.0-1.0); Blood Urea Nitrogen 24 mg/dL (9-16); Calcium 8.7 mg/dL (8.4-10.2); Carbon Dioxide 22 mmol/L (22-29); Chloride 111 mmol/L (96-108); Creatinine Clr Calc Pharmacy 130.3; Estimated Glomerular Filt Rate > 60; Glucose Random 102 mg/dL (60-115); Magnesium 1.8 mg/dL (1.6-2.6); Potassium 4.1 mmol/L (3.3-5.1); Sodium 140 mmol/L (135-145); Total Protein 6.7 g/dL (6.5-8.0)
[2025-01-06 16:38] LABS: Lipase 23 U/L (8-78)
[2025-01-06] MEDS: Ketorolac Tromethamine 30 MG/ML VIAL IM (16:59)
[2025-01-06] MEDS: oxyCODONE HCl Immed Release 5 MG TABLET PO (16:59)
[2025-01-06] MEDS: Lidocaine 4 % Patch ADH..PATCH 1 PATCH TRANSDERMA (16:59)
[2025-01-06 17:16] LABS: Appearance Urine Clear; Color Urine Yellow; Glucose Urine UA Negative (Negative); Leukocyte Esterase Urine Negative (Negative); Nitrite Urine Negative (Negative); PH 5.5 (5.0-9.0); Specific Gravity - Urine 1.015 (1.005-1.025); Urine Blood Negative (Negative); Urine Ketones Negative (Negative); Urine Protein Negative (Neg-Trace)
[2025-01-06 18:42] VITALS: BP 147/69; PULSE 61; RESP 16; TEMP 36.9; O2SAT 96
[2025-01-07 05:47] LABS: CT PCR NOT DETECTED (Not Detect.); NG PCR NOT DETECTED (Not Detect.)
== END 2025-01-06 18:43 | disposition home or self-care (01) ==
PROVIDERS: Physician Assistant; Physician Assistant Medical; Emergency Provider Emergency Medicine Emergency Medical Services; PCP Internal Medicine
DX: N45.1 Epididymitis (principal); M54.50 Low back pain, unspecified; R35.0 Frequency of micturition; N50.812 Left testicular pain; R10.9 Unspecified abdominal pain; I10 Essential (primary) hypertension; I48.0 Paroxysmal atrial fibrillation; Z79.01 Long term (current) use of anticoagulants; Z79.899 Other long term (current) drug therapy
CPT/HCPCS: 36415; 74176; 76870; 80053; 81003; 83690; 83735; 85025; 87491; 87591; 93975; 96372; 99212; 99283; 99284; J1885

== ENCOUNTER → 2025-01-06 12:37 | Outpatient (BNV) | payer MEDICARE, OTHER, SELFPAY | PROVIDERS: PCP Internal Medicine; Visit Provider Radiology Diagnostic Radiology | DX: N50.812 Left testicular pain (principal) | CPT/HCPCS: 74176 ==

== ENCOUNTER 2025-01-07 23:53 | Emergency (ER) | payer MEDICARE, OTHER, SELFPAY ==
[2025-01-08 00:01] VITALS: BP 154/86; PULSE 61; O2SAT 96
[2025-01-08 00:07] VITALS: BMI 42.5
[2025-01-08 00:09] VITALS: BP 148/70; PULSE 60; RESP 18; TEMP 36.1; O2SAT 97
--- NOTE | 2025-01-08 00:16 | ED_ITS ---
HPI - Male Genitourinary General Chief complaint: Urogenital-Male Stated complaint: Back & groin pain 07/24 Time Seen by Provider: 01/08/25 00:15 Source: patient Mode of arrival: ambulatory Limitations: no limitations History of Present Illness ED Provider: HPI Narrative: Patient has been complaining of pain in the left groin area for last 1 week was seen here yesterday and had ultrasound of scrotum and CT scan of the abdomen which was negative but ultrasound showed slight epididymitis patient is started on Levaquin GC chlamydia was negative patient comes here as pain is getting worse and now radiating to the lumbar spine area no paresthesia no bladder or bowel involvement when gets worse when patient ambulates Related Data Home Medications ?Medication ?Instructions ?Recorded ?Confirmed metoprolol succinate 50 mg 50 mg PO DAILY 03/22/21 01/03/25 tablet,extended release 24 hr triamcinolone acetonide 0.5 % appl topical 03/22/21 01/03/25 topical cream atorvastatin 20 mg tablet 20 mg PO DAILY 07/11/21 01/03/25 gabapentin 300 mg capsule 300 mg PO BEDTIME 07/11/21 01/03/25 multivitamin 1 tab PO DAILY 12/11/22 01/03/25 lisinopril 20 mg tablet 20 mg PO DAILY 01/30/23 01/03/25 Previous Rx's ?Medication ?Instructions ?Recorded chair, wheel (Wheel chair) #1 ea 03/04/21 chair, wheel (Wheel chair) #1 ea 03/04/21 docusate sodium 100 mg capsule 100 mg PO DAILY #60 caps 01/02/24 (Colace) psyllium husk 3.4 gram/5.4 gram 1 tsp PO DAILY #660 grams 01/02/24 oral powder (Metamucil) rivaroxaban 20 mg tablet (Xarelto) 20 mg PO QPM #90 tabs 02/21/24 flecainide 100 mg tablet 100 mg PO Q12H #180 tabs 06/27/24 cyclobenzaprine 5 mg tablet 5 mg PO Q8H PRN Muscle Spasm #10 01/02/25 tabs celecoxib 200 mg capsule 200 mg PO BID PRN pain 5 days #10 01/03/25 caps cyclobenzaprine 10 mg tablet 10 mg PO Q12H PRN muscle spasm 5 01/03/25 days #10 tabs tramadol 50 mg tablet 50 mg PO Q12H PRN pain 5 days #10 01/03/25 tabs levofloxacin 500 mg tablet 500 mg PO DAILY 10 days #10 tabs 01/06/25 cyclobenzaprine 10 mg tablet 10 mg PO Q8H #20 tabs 01/08/25 morphine 15 mg immediate release 15 mg PO Q8H PRN pain #15 tabs 01/08/25 tablet prednisone 20 mg tablet 40 mg (2 x 20 mg) PO DAILY #10 tabs 01/08/25 Allergies Allergy/AdvReac Type Severity Reaction Status Date / Time grass pollen-nisha, Allergy Mild Unknown Verified 01/08/25 00:08 standard [Grass Pollen-Nisha,Std] pollen extracts [POLLEN] Allergy Mild Unknown Verified 01/08/25 00:08 zolpidem [Ambien] Allergy Unknown Unknown Verified 01/08/25 00:08 house dust Allergy Unknown Verified 01/08/25 00:08 environmental allergies AdvReac Sinus Verified 01/08/25 00:08 Inflammation Review of Systems Review of Systems: Yes all other systems are reviewed and are negative [facility] Past Medical History Medical History Bleeding hemorrhoids HTN (hypertension) Acute knee pain PAF (paroxysmal atrial fibrillation) Surgical History Hx of foot surgery History of tonsillectomy and adenoidectomy History of deviated nasal septum Hx of cholecystectomy History of mandibular surgery Family History Family History Father CVD (cardiovascular disease) Mother No problems noted. Social History Social History Alcohol intake: never Patient Tobacco Use Status: Never used Tobacco Advance Directives: Yes Advance Directives Information Provided: No Advance Directives on File: No Current occupational status: retired Physical Exam Vital Signs: Vital Signs: Last Vital Signs Temp 97 F 01/08/25 00:09 Pulse 60 01/08/25 00:09 Resp 18 01/08/25 00:09 BP 148/70 H 01/08/25 00:09 Pulse Ox 97 01/08/25 00:09 O2 Del Method Room Air 01/08/25 00:09 BMI result Body Mass Index 42.5 Appearance: Alert. Oriented X3. No acute distress. Eyes: No pallor or icterus ENT: Pharynx normal. Oral Mucosa moist Neck: Normal inspection. Neck supple. CVS: Normal heart rate and rhythm. Pulses normal. Respiratory: No respiratory distress. Equal air entry bilateral, no wheezing/rales/rhonchi Abdomen: Soft and nontender. Bowel sounds are present, no mass palpable, no CVA tenderness Skin: Skin warm and dry. Normal skin color. Normal skin turgor. Extremities: No lower extremity edema. No calf tenderness : Slight tenderness left epididymis no signs of abscess or cellulitis Back: Tenderness L1-L2 area SLR negative on coughing pain showed some albumin area to the groin area likely L1-2 radiculopathy Neuro: Oriented X 3. No motor deficit. No sensory deficit.No cerebellar signs , cranial nerves II-XII intact Medical Decision Making Medical Decision Making MDM Narrative: Patient with mild epididymitis which has been treated with Levaquin comes here with pain related will lower lumbar patient has a L1 radiculopathy with groin pain. Will give morphine steroids muscle relaxant advised to follow with lumbar soil fertility extension specialist patient has had a CT scan of the abdomen yesterday did not show any vertebral fracture Differential Diagnosis Differential Diagnoses: The differential diagnosis associated with the presentation includes Lumbar radiculopathy/epididymal abscess/epididymitis Discharge Plan Discharge Clinical Impression: Acute left lumbar radiculopathy Patient Disposition: Home, Self-Care Instructions: Lumbar Radiculopathy (ED) Additional Instructions: Likely have L1 lumbar radiculopathy etiology not very clear Take pain medication muscle relaxant and prednisone as prescribed Follow with the soil fertility extension specialist as advised for further evaluation and treatment Prescriptions: New cyclobenzaprine 10 mg tablet 10 mg PO Q8H Qty: 20 0RF prednisone 20 mg tablet 40 mg PO DAILY Qty: 10 0RF morphine 15 mg tablet 15 mg PO Q8H PRN (Reason: pain) Qty: 15 0RF Rx Instructions: Partial Fill upon patient request. No Action Xarelto 20 mg tablet 20 mg PO QPM Qty: 90 3RF flecainide 100 mg tablet 100 mg PO Q12H Qty: 180 3RF (DME) Wheel chair Kit See Rx Instructions .ROUTE .MEDSUPPLY Qty: 1 0RF Rx Instructions: As directed (DME) Wheel chair Kit See Rx Instructions .ROUTE .MEDSUPPLY Qty: 1 0RF Rx Instructions: As directed levofloxacin 500 mg tablet 500 mg PO DAILY 10 Days Qty: 10 0RF triamcinolone acetonide 0.5 % cream topical metoprolol succinate 50 mg tablet extended release 24 hr 50 mg PO DAILY gabapentin 300 mg capsule 300 mg PO BEDTIME atorvastatin 20 mg tablet 20 mg PO DAILY multivitamin Tablet 1 tab PO DAILY lisinopril 20 mg tablet 20 mg PO DAILY celecoxib 200 mg capsule 200 mg PO BID PRN (Reason: pain) 5 Days Qty: 10 0RF cyclobenzaprine 10 mg tablet 10 mg PO Q12H PRN (Reason: muscle spasm) 5 Days Qty: 10 0RF tramadol 50 mg tablet 50 mg PO Q12H PRN (Reason: pain) 5 Days Qty: 10 0RF Metamucil 3.4 gram/5.4 gram powder 1 tsp PO DAILY Qty: 660 0RF Rx Instructions: mix into at least 4 oz water or juice before administering docusate sodium [Colace] 100 mg capsule 100 mg PO DAILY Qty: 60 2RF cyclobenzaprine 5 mg tablet 5 mg PO Q8H PRN (Reason: Muscle Spasm) Qty: 10 0RF Referrals: Simon Solano MD, PhD [Physician] - Print Language: Frisian
[2025-01-08] MEDS: Cyclobenzaprine HCl 10 MG TABLET PO (00:53)
[2025-01-08] MEDS: Morphine Sulfate Immed Release 15 MG TABLET PO (00:53)
[2025-01-08] MEDS: dexAMETHasone 2 MG TABLET 10 MG PO (00:54)
[2025-01-08 00:56] VITALS: BP 121/92; PULSE 55; RESP 18; TEMP 36.6; O2SAT 97
[2025-01-08 01:00] VITALS: BP 121/92; PULSE 55; RESP 18; TEMP 36.6; O2SAT 97
== END 2025-01-08 01:04 | disposition home or self-care (01) ==
PROVIDERS: Emergency Provider Internal Medicine; PCP Internal Medicine
DX: M54.16 Radiculopathy, lumbar region (principal); M54.50 Low back pain, unspecified
CPT/HCPCS: 99283; 99284; J8540

== ENCOUNTER 2025-01-09 09:50 | Outpatient (REF) | payer MEDICARE, OTHER, SELFPAY ==
--- NOTE | ~2025-01-09 | XR_ITS ---
EXAMINATION: XR CHEST CLINICAL INFORMATION: Pleural effusion COMPARISON: July 29, 2022. TECHNIQUE: 2 views of the chest were obtained. FINDINGS: Pulmonary reticular pattern. No consolidation, pleural effusion or pneumothorax. No hyperinflation. Cardiomediastinal silhouette size is normal. Multilevel thoracic spondylosis. Degenerative changes in the acromioclavicular joints. XR/XR chest 2V IMPRESSION: No acute airspace disease. Stable. Electronically signed by: Pete Balbuena MD 01/09/2025 10:59 AM EDT
== END 2025-01-09 09:51 | disposition home or self-care (01) ==
LOC: HO.XRAY 09:50
PROVIDERS: PCP Internal Medicine; Visit Provider Internal Medicine
DX: J90 Pleural effusion, not elsewhere classified (principal)
CPT/HCPCS: 71046

== ENCOUNTER → 2025-01-09 10:00 | Outpatient (BNV) | payer MEDICARE, OTHER, SELFPAY | PROVIDERS: PCP Internal Medicine; Visit Provider Radiology Diagnostic Radiology | DX: R07.9 Chest pain, unspecified (principal) | CPT/HCPCS: 71046 ==

== ENCOUNTER → 2025-01-13 07:40 | Outpatient (REF) | payer MEDICARE, OTHER, SELFPAY ==
--- NOTE | 2025-01-13 07:43 | CA_ITS ---
Transthoracic Echocardiogram Patient (Last, First, Middle): Mahin Ambrocio G Gender: Male Date of : 1955 Age: 69 Procedure Date: 01/13/2025 Procedure Type: Transthoracic Echocardiogram Location: OP Height: 190.5 cm Weight: 154.22 kg BSA: 2.75 m2 Heart Rate: 60 bpm BP: 122 / 70 mmHg Environmental Services Floor Tech: SB/RC Referring MD: Lucas Chris MD Symptoms: I48.0 - Paroxysmal atrial fibrillation Study Quality: Technically Difficult ECG Rhythm: Sinus Conclusions: - The left ventricular systolic function is normal. The calculated ejection fraction is 58% by biplane method. - There is moderate septal asymmetric hypertrophy. - Evidence suggests grade II (moderate) diastolic dysfunction. - No obvious valvular pathology seen on this study. Findings Procedure Information Contrast agent, definity, is being given per protocol without apparent complications. The quality of the study was technically difficult. The study quality is limited by patients body habitus. Left Ventricle Normal left ventricular cavity size. The left ventricular systolic function is normal. The calculated ejection fraction is 58% by biplane method. There is no evidence of regional wall motion abnormalities. Evidence suggests grade II (moderate) diastolic dysfunction. There is moderate septal asymmetric hypertrophy. Right Ventricle Normal right ventricular cavity size and systolic function. Atria Both atria are normal in size. Aortic Valve There is a normal trileaflet aortic valve. There is no aortic valve stenosis. There is no aortic valve regurgitation. Mitral Valve There is mild mitral annular calcification. There is mild mitral valve regurgitation. There is no mitral valve stenosis. Pulmonic Valve The pulmonic valve is likely normal. Tricuspid Valve Normal tricuspid valve structure. There is trace tricuspid valve regurgitation. Tricuspid regurgitation envelope is inadequate for calculation of right ventricular systolic pressure. Great Vessels The asc aorta is normal in size. Venous The inferior vena cava was not well visualized. Pericardium/Pleural There is no evidence of pericardial effusion. Prior Study Comparison No significant change compared to prior study dated: 01/16/2023. Recommendations, Care & Conclusions No obvious valvular pathology seen on this study. Measurements 2D Linear Measurements IVSd: 1.57 0.6-0.9/0.6-1.0 cm LVIDd: 5.91 3.9-5.3/4.2-5.9 cm LVIDd Index: 2.15 2.4-3.2/2.2-3.1 cm/m2 LVIDs: 4.47 2.0-3.6 cm LVPWd: 0.96 0.7-1.1 cm LA Diam: 4.20 2.7-3.8/3.0-4.0 cm LAIDs Index: 1.53 1.5-2.3 cm/m2 LV Mass: 411.02 67-162/88-224 g LV Mass Index: 149.46 43-95/49-115 g/m2 LVOT Diam: 2.30 3.0+(-)1.3 cm 2D Systolic Function EF 4C: 45.00 >55% EF 2C: 66.90 >55% EF BiP: 57.90 >55% Mitral Valve MV Pk E: 1.00 MV PK A: 0.67 MV Decel Time: 211.00 E/A: 1.50 E'Lateral: 8.59 E'Medial: 4.03 E/E' Med: 24.80 E/E' Lat: 11.60 PHT: 62.00 MVA PHT: 3.55 Decel Oldham: 4.72 Aortic Valve AoV Pk Booker: 1.60 AoV Pk Grad: 10.00 DAMON: 2.62 LVOT LVOT Pk Booker: 1.06 LVOT Mn Booker: 0.69 LVOT VTI: 0.25 LVOT Pk Grad: 4.00 LVOT Mn Grad: 2.00 LVOT Diam: 2.30 LVOT Area: 4.15 Diastolic Function MV Pk E: 1.00 MV Pk A: 0.67 E/A: 1.50 E'Medial: 4.03 E/E' Med: 24.80 E' Laterial: 8.59 E/E' Lat: 11.60 Right Ventricle TAPSE (mm): 21.40 TVS' Booker: 10.80 Tricuspid Valve RA Press: 0.00 Great Vessels Aorta Sinus of Valsalva: 3.00 2.0-3.5 cm Ao Asc: 3.50 2.1-3.4 cm Pulmonary Veins Pulm Vein S/D 0.80 Updated in Other Vendor System with Status of Final Jona Bernardo MD electronically signed on 01/15/2025 11:08:45 AM with status of Final
--- OUTSIDE RECORDS SUMMARY | 2025-01-13 07:43 | XMS_ITS ---
Author Organization Blue Acosta MD Address [address] [place], [place] [phone] Care Team Providers Care Target Man Name Role Phone Blue Acosta Primary Care [...] Location Date Provider Diagnosis Blue Acosta MD [address] [place] [address] [address] [place], [place] [phone] 01/09/2025 Blue Acotsa Pleural effusion J90 ; Lumbar disc disease [...] testing, THE ORDER HAS BEEN FAXED TO [email or web address] FOR SCHEDULING 01/09/2025 Foot drop, left (ICD-10 [...] testing, THE ORDER HAS BEEN FAXED TO [facility] FOR SCHEDULING Foot drop, left pending diagnostic [...] 07:00:00 AM, [address], [address], [place], [place], [phone], Provider Name:Blue Arechiga ier, 07/16/2025 08:00:00 AM, [address], [address], [place], [place], [phone], Progress Notes * Kyrie AMBROCIO GDOB:[birth year] (69 yo M)Acc No.[id number]:01/09/2025 Progress Notes Patient:?Kyrie AMBROCIO G Provider:?Blue Acosta MD :1955???Age:69 Y???Sex:Male Max e:01/09/2025 Address:[address] [place], [place] [phone] Subjective: * Chief Complaints: * ???1. 6 MO F/U and f/u ER vi sits x 2. 2. Accompanied by . * HPI: ???Symptom(s):?patient is a 69 yo male here for 6 month follow up visit, as well as follow up of recent ER visits. * ROS:?General/Constitutional:?Denies?Chills.?Denies?Fatigue.?Denies?Fever.?Denies?Headache.?ENT:?Denies?Sore throat.?Respiratory:?Denies?Cough.?Denies?Shortness of breath at rest.?Denies?Shortness of breath with exertion.?Gastrointestinal:?Denies?Diarrhea.?Denies?Nausea.?Musculoskeletal:?Patient complaining of?weakness in left leg and pain in leg.? * Medical History:?colonoscopy 04/2012 for rectal bleeding due in 10 years; Colonoscopy done 10/27/[address] Sanchez - repeat 5 years. * Medications:?Taking levoFLOX acin 500 MG Tablet 1 tablet Orally Once a day , Taking Morphine Sulfate 15 MG Tablet 1 tablet as needed Orally every 4 hrs , Taking predniSONE 20 MG Tablet 2 tabs Orally Once a day , Taking Cyclobenzaprine HCl 10 MG Tablet 1 tablet at bedtime as needed Orally Once a day , Taking Gabapentin 300 MG Capsule 3 capsules qhs Orally Once a day hs , Taking traMADol HCl 50 MG Tablet 1 tablet Orally Once a day , Taking Xarelto 20 MG Tablet 1 tablet with food Orally Once a day , Taking Flecainide Acetate 100 MG Tablet 1 tablet Orally twice a day , Taking Lisinopril 20 MG Tablet TAKE 1 TABLET BY MOUTH EVERY DAY , Taking Metoprolol Succinate ER 50 MG Tablet Extended Release 24 Hour TAKE 1 TABLET BY MOUTH EVERY DAY , Taking Atorvastatin Calcium 20 MG Tablet TAKE 1 TABLET BY MOUTH EVERY DAY , Taking Celecoxib 200 MG Capsule TAKE 1 CAPSULE BY MOUTH EVERY DAY , Taking Triamcinolone Acetonide 0.5 % Cream APPLY TO AFFECTED AREA TWICE A DAY EXTERNALLY FOR 30 DAYS , Not-Taking/PRN Meclizine HCl 25 MG Tablet TAKE 1 TABLET BY MOUTH EVERY DAY NEEDED , Not-Taking/PRN Mupirocin 2 % Ointment 1 application Externally Three times a day , Not-Taking/PRN diazePAM 5 MG Tablet 1-2 tablet as needed Orally every 8 hours , Not-Taking/PRN ProAir HFA 108 (90 Base) MCG/ACT Aerosol Solution 2 puffs as needed Inhalation every 4 hrs , Not-Taking/PRN Nitrostat 0.4 MG Tablet Sublingual 1 tablet under the tongue and allow to dissolve as needed Sublingual every 15 min for pain. may repeat time 3 , Medication List reviewed and reconciled with the patient * Allergies:?Amoxil: Rash, Amb ien: Hallucinations. Objective: * Vitals:?Ht: 73, Wt: 338, BMI :44.59, BP:158/80, Repeat BP:120/86, Wt-k.32. weight is down 6 pounds since 07-10-24. * ???Past Orders: ???Lab:Liver Panel (Order Da te 01/02/2025) (Collection Date & Time - 01/02/2025 08:00 AM) ? Value Reference Range ?Bilirubin Total 0.6 0.0- 1.0 - mg/dL ?Bilirubin Direct 0.3 0.0 -0.5 - mg/dL ?Aspartate Amino Transferase 29 5-37 - U/L ?Alanine Aminotransferase 22 0-40 - U/L ?Total Protein 7.6 6.5-8. 0 - g/dL ?Albumin Level 3.9 3.5-5. 0 - g/dL ?Alkaline Phosphatase 80 39-117 - U/L ???Lab:Glucose Fasting (Orde r 01/02/2025) (Collection Date & Time - 01/02/2025 08:00 AM) ? Value Reference Range ?Glucose Fasting 118 H 60-9 9 - mg/dL ???Lab:Lipid Panel with Refl ex (Order 01/02/2025) (Collection Date & Time - 01/02/2025 08:00 AM) ? Value Reference Range ?Triglycerides 118 <150 - mg/dL ?Cholesterol 118 <200 - m g/dL ?LDL Cholesterol Calculated 59 <100 - mg/dL ?HDL Cholesterol 36 L >40 - mg/dL ???Lab:Hemoglobin A1c (Order 01/02/2025) (Collection Date & Time - 01/02/2025 08:00 AM) ? Value Reference Range ?Hemoglobin A1c % 5.6 <6. 0 - % ?Estimated Average Glucose 114 - mg/dL * Examination: ???General Examination: ?GENERAL APPEARANCE:?alert, well hydrated, in no distress.?HEAD:?normocephalic.?SKIN:?good turgor.?HEART:?no murmurs, rubs, gallops, regular rate and rhythm.?LUNGS:?no wheezes, rales, rhonchi, good air movement, clear to auscultation bilaterally.?NEUROLOGIC:?abnormal? with 60%loss of dorsiflexion.? Assessment: * Assessment: 1.?Pleural effusion - J90 (P rimary)???2.?Lumbar disc disease with radiculopathy - M51.16???3.?Foot drop, left - M21.372???4.?Prediabetes - R73.09???5.?Mixed hyperlipidemia - E78.2??? Plan: * Treatment: 2.?Lumbar disc disease with radiculopathy?Imaging: MRI LUMBAR SPINE NO CONTRAST Notes: pending diagnstic testing, THE ORDER HAS BEEN FAXED TO [email or web address] FOR SCHEDULING?? 3.?Foot drop, left?Imaging: MRI LUMBAR SPINE NO CONTRAST Notes: pending diagnostic testing?? 4.?Prediabetes? Notes: stable, no need for medication at this time, will contiue to monitor?? 5.?Mixed hyperlipidemia? Continue Atorvastatin Calcium Tablet, 20 MG, TAKE 1 TABLET BY MOUTH EVERY DAY.?? Notes: stable, will continue current regiment?? * * The named appointment provid er may or may not be the originator of this progress note, and it is not deemed complete until electronically signed by the appointment provider. Sign off status: Pending * Provider:?Blue Acosta MD Date:?0 01/09/2025 Generated for Navjot mccall/Janay/Tanoitting on:?01/13/2025 07:43 AM EDT History and Physical Notes * [...]
--- OUTSIDE RECORDS SUMMARY | 2025-01-13 07:43 | XMS_ITS ---
Author Organization [facility] Address [address] [place] [phone] Care Team Providers Care Printed Circuit Board Layout Designer Name Role Phone Blue Acosta MD Primary Care Provider Milli Jimenez Unavailable [phone] Allergies Allergen (clinical drug ingredient) Drug/Non Drug [...] 024 Encounters Encounter Location Date Provider Diagnosis [facility] [address] [place] [phone] 05/20/2024 Milli Yost Other hammer toe(s) (acquired), [...] Mahin JORGE GDOB:[birth year] (68 yo M)Acc No.[id number]:05/20/2024 PROGRESS NOTES Patient:?Mahin Jorge Madan Provider:?Milli Yost DPM :1955???Age:68 Y???Sex:Male Max e:05/20/2024 [facility] [phone] Pcp:Blue Acosta MD Subjective: * Chief [...] Yost DPM Date:?03/2024 Generated for Navjot mccall/Janay/Kristy on:?01/13/2025 07:43 AM EDT History and Physical [...]
--- OUTSIDE RECORDS SUMMARY | 2025-01-13 07:44 | XMS_ITS | Patient Health Record ---
Author Organization [facility] hallie [place] Address [address] [place] [address] Care Team Providers Care Mammography Technologist Name Role Phone Blue Acosta MD Primary Care Provider Milli Jimenez Unavailable [phone] Allergies Allergen (clinical drug ingredient) Drug/Non Drug [...] W/U Status Risk Notes Problem Tinea unguium (931669130) Tinea unguium (B35.1) Active confirmed Problem Acquired hammer toe of left foot (2978723597708383 ) Other hammer toe(s) (acquired), left foot (M20.42) Active confirmed Problem Localized, primary osteoarthritis of the ankle and/or foot (815218253) Arthritis of joint of lesser toe, left [...] Date Provider Diagnosis Surgery [facility] [address] [place] [address] 04/23/2024 Milli Schulza [facility] [address] [place] [address] 04/10/2024 Milli Pericrenee Pain in left toe(s) M79.675 ; Other hammer toe(s) (acquired), left foot M20.42 and Exostosis of toe M89.8X7 [address] [address] 04/29/2024 Milli Perica Other hammer toe(s) (acquired), left foot M20.42 and Exostosis of toe M89.8X7 [address] [address] 05/06/2024 Milli Perica Other hammer toe(s) (acquired), left foot M20.42 and Exostosis of toe M89.8X7 [address] [address] 05/20/2024 Milli Perica Other hammer toe(s) (acquired), left foot M20.42 and Exostosis of toe M89.8X7 [address] [address] 04/23/2024 Milli Perica [address] [address] 04/24/2024 Milli Yost Assessments Encounter Date Diagnosis [...] 05/06/2013 X ray : Foot, left 3V 09/10/2023 X ray : Foot, left 3V 04/10/2024 X ray : Foot, left 3V 04/29/2024 X ray : Foot, left 3V 05/06/2024 X ray : Foot, left 3V 06/17/2013 X ray : Foot, left 3V 05/30/2013 X ray : Foot, left 3V 03/29/2012 X ray : Foot, left 3V 04/01/2013 X ray : Foot, left 3V 04/11/2013 X ray : Foot, left 3V 04/22/2013 X ray : Foot, left 3V 08/17/2023 47858-KWCVHXO NAIL, 1-5 08/17/2023 18051-OZDWJJM NAIL, 1-5 03/31/2016 95622- Debride <25 sq cm 09/02/2013 55751- Debride <25 sq cm 08/17/2023 50850-OAYDLQR SKIN/TISSUE 07/07/2013 10219-OIPPJZD SKIN/TISSUE 07/22/2013 35474-YSIHXIG SKIN/TISSUE 08/12/2013 Insurance Providers Payer Name Payer Address Payer Phone Subscriber Number Group Number Insured Name Patient Relationship to Insured Coverage Start Date Coverage End Date Medicare National Govt Svcs Inc [address] [place] [address] [id number] Mahin Ha Self - patient is the insured [employer] ([employer] [place]) [address] [place] [address] [phone] [id number] Mahin Ha Self - patient is [...]
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
--- OUTSIDE RECORDS SUMMARY | 2025-01-13 07:44 | XMS_ITS ---
Author Organization [facility] Address [address] [place] [address] Care Team Providers Care Safety Counselor Name Role Phone Blue Acosta MD Primary Care Provider Milil Jimenez Unavailable [phone] Allergies Allergen (clinical drug ingredient) Drug/Non Drug [...] 024 Encounters Encounter Location Date Provider Diagnosis [facility] [place] [address] [place] [address] 04/29/2024 Milli Yost Other hammer toe(s) (acquired), [...] Mahin JORGE GDOB:[birth year] (68 yo M)Acc No.[id number]:04/29/2024 Progress Notes Patient:?Mahin Jorge Provider:?Milli Yost DPM :1955???Age:68 Y???Sex:Male Max e:04/29/2024 Address:[address] [place], [place] [address] Pcp:Blue Acosta MD Subjective: * Chief Complaints: [...] , a light compressive dressing.? * Procedure Codes:?65421 X-RAY EXAM OF LEFT FOOT 3V, Modifiers: [...] Yost DPM Date:? Generated for Navjot mccall/Janay/eTransmitting on:?01/13/2025 07:43 AM EDT History and Physical [...]
--- OUTSIDE RECORDS SUMMARY | 2025-01-13 07:44 | XMS_ITS ---
Author Organization [facility] Address [address] [place] [address] Care Team Providers Care Associate Property Manager Name Role Phone Blue Acosta MD Primary Care Provider Corby Michel [phone] Allergies Allergen (clinical drug ingredient) Drug/Non Drug [...] Risk Notes Problem Benign neoplasm of colon (93097310) Serrated adenoma of colon (D12.6) Active confirmed Problem Serrated polyp of colon (343038342) Serrated polyp of colon (K63.5) Active confirmed Vital Signs Blood pressure systolic 111 mm Hg 12/11/19 25 Blood pressure diastolic 11 mm Hg 025 Height 74 in 12/11/2024 Weight 337 lbs 12/11/2024 BMI 43.26 kg/m2 12/11/2024 Procedures Procedure Date Ordered Date Performed Result Body Sit e COLONOSCOPY 12/11/2024 N/A Encounters Encounter Location Date Provider Diagnosis [facility] [address] [facility] [address] [place] [address] 12/11/2024 Corby Sanchez History of adenomato us [...] Name:Corby Herndon Daniel , 03/20/2025 09:30:00 AM, [address] [place] [address] , [place], [place], [phone], Progress Notes * KYRIE JORGE GDOB:[birth year] (69 yo M)Acc No.[id number]:12/11/2024 Progress Notes Patient:?KYRIE JORGE Provider:?Corby Sanchez MD :1955???Age:69 Y???Sex:Male Max e:12/11/2024 Address:[address] [place] [address] Pcp:Blue Acosta MD Subjective: * Chief Complaints: * ???1. Patient presents today for a COLON SCREENING. * Medical History:?Colonoscopy 12/29/2005-negative for polyps; colonoscopy in 04/2012 with a tiny serrated adenoma of the cecum, diverticulosis, and internal hemorrhoids, ERCP for choledocholithiasis in 06/2005, Duodenal ulcers in 2004, Denies [place],DM,CVA,Lung disease,renal disease, HTN, Sleep apnea--uses a nasal CPAP, Atrial fibrillation, Hyperlipidemia, Colonoscopy 10/2019 with removal of only hyperplastic polyps, Negative CT of abdomen/pelvis 08/2021, except diverticulosis, Negative EGD in [place] for vomiting in 2022. * Surgical History:?Cholecyste [...] 2 days before the colonoscopy * Procedure Codes:?52717 DIAGN OSTIC COLONOSCOPY * Preventive Medicine:? ??Counseling:?Care goal follow-up plan:?Above Normal BMI Follow-up?Giving encouragement to exercise,?BMI management provided?Yes.? * * The named appointment provid er may or may not be the originator of this progress note, and it is not deemed complete until electronically signed by the appointment provider. Sign off status: Pending * Provider:?Corby Sanchez MD Date:? 025 Generated for Navjot mccall/Janay/Tanoitting on:?01/13/2025 07:43 AM EDT
--- OUTSIDE RECORDS SUMMARY | 2025-01-13 07:44 | XMS_ITS ---
Author Organization Blue Acosta MD Address [address] [place] [phone] Care Team Providers Care Acquisition Marketing Manager Name Role Phone Blue Acosta Primary Care Provider [phone] REASON FOR VISIT MRI order Encounters Encounter Location Date Provider Diagnosis Blue Acosta MD [address] [place] [address] [address] [place], [place] [phone] 01/12/2025 Blue Acosta Plan Of Treatment Next Appt Details Provider Name:Blue Arechiga ier, 07/10/2025 07:00:00 AM, [address] [place] [address], Suite [facility], [place], [place], [phone], Provider Name:Blue Arechiga ier, 07/16/2025 08:00:00 AM, [address] [place] [address], Suite [facility], [place], [place], [phone], Progress Notes * Mahin JORGE GDOB:[birth year] (69 yo M)Acc No.[id number]:01/12/2025 Patient:?Mahin JORGE :1955???Age:69 Y???Sex:Male Address:[address] [place] [address] * true * Date:? Generated for Printi ng/Favidyag/eTransmitting on:?01/13/2025 07:44 AM EDT
--- OUTSIDE RECORDS SUMMARY | 2025-01-13 07:44 | XMS_ITS ---
Author Organization Blue Acosta MD Address [address] [place] [phone] Care Team Providers Care Glass Inserter Name Role Phone Blue Acosta Primary Care Provider REASON FOR VISIT ER Encounters Encounter Location Date Provider Diagnosis Blue Acosta MD [address] [facility] [address] [place] [phone] 01/08/2025 Blue Acosta Plan Of Treatment Next Appt Details Provider Name:Blue Arechiga ier, 07/10/2025 07:00:00 AM, [address] [place] [address], Suite [facility], [place], [place], [phone], Provider Name:Blue Arechiga ier, 07/16/2025 08:00:00 AM, [address] [place] [address], Suite [facility], [place], [place], [phone], Progress Notes * Mahin JORGE GDOB:[birth year] (69 yo M)Acc No.[id number]:01/08/2025 Patient:?Mahin JORGE :1955???Age:69 Y???Sex:Male Address:[address] [place] [address] * true * Date:? Generated for Printi ng/Favidyag/eTransmitting on:?01/13/2025 07:43 AM EDT
--- OUTSIDE RECORDS SUMMARY | 2025-01-13 07:45 | XMS_ITS ---
Author Organization [facility] Address [address] [facility] [place] [address] Care Team Providers Care Patrol Sergeant Name Role Phone Blue Acosta MD Primary Care Provider Milli Jimenez Unavailable [phone] Allergies Allergen (clinical drug ingredient) Drug/Non Drug [...] 024 Encounters Encounter Location Date Provider Diagnosis [facility] [place] [address] [place] [address] 05/06/2024 Milli Yost Other hammer toe(s) (acquired), [...] Topical: bacitacin applied Removal of: sutures performed [facility] sterile forceps/suture scissors or #15 blade, area cleaned with alcohol prior to removal Progress Notes * Mahin JORGE GDOB:[birth year] (68 yo M)Acc No.[id number]:05/06/2024 Progress Notes Patient:?Mahin Jorge Madan Provider:?Milli Yost DPM :1955???Age:68 Y???Sex:Male Max e:05/06/2024 [facility] Pcp:Blue Acosta MD Subjective: * Chief [...] with alcohol prior to removal.? * Procedure Codes:?90043 X-RAY EXAM OF LEFT FOOT 3V, Modifiers: [...] Yost DPM Date:? Generated for Navjot mccall/Janay/Kristy on:?01/13/2025 07:44 AM EDT History and Physical Notes * [...]
== END ==
LOC: HO.CARD 07:40
PROVIDERS: PCP Internal Medicine; Visit Provider Internal Medicine Cardiovascular Disease
DX: I48.0 Paroxysmal atrial fibrillation (principal)
CPT/HCPCS: 93306; Q9957

== ENCOUNTER → 2025-01-13 07:43 | Outpatient (BNV) | payer MEDICARE, OTHER, SELFPAY | PROVIDERS: PCP Internal Medicine; Visit Provider Internal Medicine | DX: I34.0 Nonrheumatic mitral (valve) insufficiency (principal) | CPT/HCPCS: 93306 ==

== ENCOUNTER 2025-01-30 11:31 | Outpatient (AMB) | payer MEDICARE, OTHER, SELFPAY ==
--- NOTE | 2025-01-30 11:59 | HO.NEPHOV ---
Vital Signs 01/30/25 12:05 Height 6 ft 3 in Weight 334 lb 2 oz BMI 41.8 BP 126/70 Blood Pressure Location Rt radial Position Sitting Pulse 67 Pulse Source Pulse Oximeter Pulse Oximetry (%) 95 Oxygen Delivery Method Room Air Intake Visit Reasons: INP- Ref by [facility] DX-Renal Cyst Navigation Teacher Required: No Accompanied by: Self / Same As Patient Allergies grass pollen-nisha, standard [Grass Pollen-Nisha,Std] Allergy (Mild, Verified 01/30/25 12:05) Unknown pollen extracts [POLLEN] Allergy (Mild, Verified 01/30/25 12:05) Unknown zolpidem [Ambien] Allergy (Unknown, Verified 01/30/25 12:05) Unknown house dust Allergy (Verified 01/30/25 12:05) Unknown environmental allergies Adverse Reaction (Verified 01/30/25 12:05) Sinus Inflammation HPI Comments Details: I had the pleasure of seeing Mahin in consultation for a 3.3 cm exophytic cystic lesion on the posterior mid portion right kidney which was detected incidentally on a CT scan done for flank pain. He does not have any night sweats, weight loss, hematuria. He has not passed any renal calculi. He has no DVTs. He is known to have hypertension which is well controlled on his current medication regimen. He has no family history of any renal cysts, PKD, ESRD or renal transplantation. He does not have any recurrent UTI but recently had epididymitis. His renal functions have been normal. He did not have any systemic complaints at the time of this office visit. [facility] Medical History Bleeding hemorrhoids HTN (hypertension) Acute knee pain PAF (paroxysmal atrial fibrillation) Surgical History Hx of foot surgery History of tonsillectomy and adenoidectomy History of deviated nasal septum Hx of cholecystectomy History of mandibular surgery Family History Father CVD (cardiovascular disease) Mother No problems noted. Social History Alcohol intake: never Patient Tobacco Use Status: Never used Tobacco Current occupational status: retired Physical Exam Vital Signs: Last Vital Signs Pulse 67 01/30/25 12:05 BP 126/70 01/30/25 12:05 Pulse Ox 95 01/30/25 12:05 Oxygen Delivery Method Room Air 01/30/25 12:05 BMI result Body Mass Index 41.8 Results Reviewed Nephrology Results: Hgb 13.2 g/dl (14.0-18.0) L 01/06/25 WBC 12.8 X10*3/uL (4.8-10.8) H 01/06/25 Plt Count 187 X10*3/uL (160-400) 01/06/25 Sodium 140 mmol/L (135-145) 01/06/25 Potassium 4.1 mmol/L (3.3-5.1) 01/06/25 Chloride 111 mmol/L (96-108) H 01/06/25 Carbon Dioxide 22 mmol/L (22-29) 01/06/25 BUN 24 mg/dL (9-16) H 01/06/25 Creatinine 0.85 mg/dL (0.5-1.4) 01/06/25 Calcium 8.7 mg/dL (8.4-10.2) 01/06/25 Urine Protein Negative mg/dL (Neg-Trace) 01/06/25 Assessment & Plan Assessment & Plan (1) Complex renal cyst: Code(s): N28.1 - Cyst of kidney, acquired Category: Medical (2) HTN (hypertension): Code(s): I10 - Essential (primary) hypertension Category: Medical Qualifiers: Hypertension type: primary hypertension Qualified Code(s): I10 - Essential (primary) hypertension Plan Mahin was found to have incidental complex renal cyst when he underwent CT scan for flank pain. He does not have hematuria, weight loss, night sweats. His renal functions are normal. He has no family history of renal cysts, ESRD or renal transplantation. He has hypertension which is well controlled on his current medication regimen. I ordered MR abdomen with and without contrast to delineate the nature of the cyst and to determine the right intervention. He maintains good hydration and does not take any excessive nonsteroidal anti-inflammatories. I would not make any medication changes. All his questions and concerns were addressed. Follow-up appointment given. Orders: Orders MR abdomen wo/w con 01/30/25 N28.1 - Cyst of kidney, acquired Coding Level of Care Code New Pt Level 4 (68575) Diagnoses Complex renal cyst N28.1 Primary hypertension I10 Hypertension type: primary hypertension
[2025-01-30 12:05] VITALS: BP 126/70; PULSE 67; O2SAT 95; BMI 41.8
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
--- OUTSIDE RECORDS SUMMARY | 2025-01-30 12:37 | XMS_ITS ---
Author Organization [facility] Address [address] [place] [address] Care Team Providers Care Clinical Services Manager Name Role Phone Blue Acosta MD Primary Care Provider Milli Jimenez Unavailable [phone] Allergies Allergen (clinical drug ingredient) Drug/Non Drug [...] 024 Encounters Encounter Location Date Provider Diagnosis [facility] [place] [address] [place] [address] 05/20/2024 Milli Yost Other hammer toe(s) (acquired), [...] Mahin JORGE GDOB:[birth year] (68 yo M)Acc No.[id number]:05/20/2024 PROGRESS NOTES Patient:?Mahin Jorge Madan Provider:?Milli Yost DPM :1955???Age:68 Y???Sex:Male Max e:05/20/2024 [place] [phone] Pcp:Blue Acosta MD Subjective: * Chief [...] Yost DPM Date:?03/2024 Generated for Navjot mccall/Janay/Kristy on:?01/30/2025 12:36 PM EDT History and Physical Notes * [...]
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
--- OUTSIDE RECORDS SUMMARY | 2025-01-30 12:37 | XMS_ITS ---
[facility] Address [address] [place] [address] Care Team Providers Care Bottom Painter Name Role Phone Blue Acosta MD Primary Care Provider Milli Jimenez Unavailable [phone] Allergies Allergen (clinical drug ingredient) Drug/Non Drug [...] 024 Encounters Encounter Location Date Provider Diagnosis [facility] [place] [address] 04/29/2024 Milli Yost Other hammer toe(s) (acquired), [...] Mahin JORGE GDOB:[birth year] (68 yo M)Acc No.[id number]:04/29/2024 Progress Notes Patient:?Mahin Jorge Provider:?Milli Yost DPM :1955???Age:68 Y???Sex:Male Max e:04/29/2024 Address:[address] [place], [place] [id number] Pcp:Blue Acosta MD Subjective: * Chief Complaints: [...] , a light compressive dressing.? * Procedure Codes:?62765 X-RAY EXAM OF LEFT FOOT 3V, Modifiers: [...] Yost DPM Date:? Generated for Navjot mccall/Janay/eTransmitting on:?01/30/2025 12:37 PM EDT History and Physical Notes * [...]
--- OUTSIDE RECORDS SUMMARY | 2025-01-30 12:37 | XMS_ITS ---
Author Organization Blue Acosta MD Address [address] [place] [address] [place] [id number] Care Team Providers Care Hardware Trainer Name Role Phone Blue Acosta Primary Care Provider REASON FOR VISIT Repeat CXR Encounters Encounter Location Date Provider Diagnosis Blue Acosta MD [address] [place] [phone] 01/13/2025 Blue Acosta Pleural effusion J90 Assessments [...] Details Provider Name:Blue garrido, 07/10/2025 07:00:00 AM, [address] [place] [address], [address], [phone], Provider Name:Blue garrido, 07/16/2025 08:00:00 AM, [address] [place] [address], [address], [phone], Progress Notes * Mahin AMBROCIO GDOB:[birth year] (69 yo M)Acc No.[id number]:01/13/2025 Patient:?Mahin AMBROCIO :1955???Age:69 Y???Sex:Male Address:[address] [place] [address] Subjective: * Chief Complaints: * ???Repeat CXR * Medical History:? * Surgical History:? * Hospitalization/Major Diagno stic Procedure:? * Medications:? Objective: * Vitals:? * Physical Examination:? Assessment: * Assessment: 1.?Pleural effusion - J90??? Plan: * Treatment: * Procedure Codes:? * true * Date:? Generated for Navjot mccall/Janay/eTransmitting on:?01/30/2025 12:37 PM EDT
--- OUTSIDE RECORDS SUMMARY | 2025-01-30 12:37 | XMS_ITS ---
Author Organization Blue Acosta MD Address [address] [place], [place] [phone] Care Team Providers Care Vice President Quality Improvement Name Role Phone Blue Acosta Primary Care [...] kg/m2 01/09/2025 weight is down 6 pounds [facility] e 07-10-24 Encounters Encounter Location Date Provider Diagnosis Blue Acosta MD [address] [place] [address] [address] [place], [place] [phone] 01/09/2025 Blue Acosta Pleural effusion J90 ; [...] testing, THE ORDER HAS BEEN FAXED TO [facility] FOR SCHEDULING 01/09/2025 Foot drop, left (ICD-10 [...] 07:00:00 AM, [address], [address], [place], [place], [phone], Provider Name:Blue Arechiga ier, 07/16/2025 08:00:00 AM, [address], [address], [place], [place], [phone], Progress Notes * Kyrie JORGE GDOB:[birth year] (69 yo M)Acc No.[id number]:01/09/2025 Progress Notes Patient:?Kyrie JORGE G Provider:?Blue Acosta MD :1955???Age:69 Y???Sex:Male Max e:01/09/2025 Address:[address] [place], [place] [phone] Subjective: * Chief Complaints: * ???6 MO F/U and f/u ER visit s x 2Accompanied by * HPI: ???Symptom(s):?patient is a 69 yo male here for 6 month follow up visit, as well as follow up of recent ER visits. * ROS:?General/Constitutional:?Denies?Chills.?Denies?Fatigue.?Denies?Fever.?Denies?Headache.?ENT:?Denies?Sore throat.?Respiratory:?Denies?Cough.?Denies?Shortness of breath at rest.?Denies?Shortness of breath with exertion.?Gastrointestinal:?Denies?Diarrhea.?Denies?Nausea.?Musculoskeletal:?Patient complaining of?weakness in left leg and pain in leg.? * Medical History:? * Surgical History:? * Hospitalization/Major Diagno stic Procedure:? * Medications:?TakinglevoFLOXa ariela 500 MG Tablet 1 tablet Orally Once [...] n: hallucinationsyes[Allergies Verified] Objective: * Vitals:?Ht: 73, Wt: 338, BMI :44.59, BP:158/80, Repeat BP:120/86, Wt-k.32. weight is down 6 pounds since 07-10-24. * ???Past Orders: ???Lab:Liver Panel (Order Da te - 01/02/2025) (Collection Date & Time - [...] 39-117 - U/L ???Lab:Glucose Fasting (Orde r Date - 01/02/2025) (Collection Date & Time - 01/02/2025 08:00 AM) ? Value Reference Range ?Glucose Fasting 118 H 60-9 9 - mg/dL ???Lab:Lipid Panel with Refl ex (Order Date - 01/02/2025) (Collection Date & Time - 01/02/2025 08:00 AM) ? Value Reference Range ?Triglycerides 118 <150 - mg/dL ?Cholesterol 118 <200 - m g/dL ?LDL Cholesterol Calculated 59 <100 - mg/dL ?HDL Cholesterol 36 L >40 - mg/dL ???Lab:Hemoglobin A1c (Order Date - 01/02/2025) (Collection Date [...] FAXED TO [facility] FOR SCHEDULING?? 3.?Foot drop, left?Imaging: MRI LUMBAR SPINE NO CONTRAST Notes: pending diagnostic testing?? 4.?Prediabetes? Notes: stable, no need for medication at this time, will contiue to monitor?? 5.?Mixed hyperlipidemia? Continue Atorvastatin Calcium Tablet, 20 MG, TAKE 1 TABLET BY MOUTH EVERY DAY.?? Notes: stable, will continue current regiment?? * Procedure Codes:? * * Sign off status: Completed true * Provider:?Blue Acosta MD Date:?0 01/09/2025 Generated for Printi ng/Favidyag/eTransmitting on:?01/30/2025 12:36 PM EDT History and Physical [...]
--- OUTSIDE RECORDS SUMMARY | 2025-01-30 12:38 | XMS_ITS | Patient Health Record ---
Author Organization Blue Acosta MD Address [address] [place], [place] [id number] Care Team Providers Care Microsoft Windows Engineer Name Role Phone Blue Acosta Primary Care Provider [phone] Allergies Allergen (clinical drug ingredient) Drug/Non Drug Allergy documented on EMR Reaction Allergy Type Onset Date Status zolpidem ambien (uncoded) hallucinations Allergy Active amoxil (uncoded) rash Allergy Act dick Results Component Value Reference Range Notes Complete Blood Count Auto Di ff Reviewed date:03/27/2024 12:20:52 PM Interpretation: Performing Lab:[facility], [address] [place] [phone] Notes/Report: White Blood Count 8.7 4.8-10.8 X10*3/uL Red Blood Count 4.71 4.60-5.80 X10*6/uL Hemoglobin 14.4 14.0-18.0 g/dl Hematocrit 43.1 42.0-52.0 % Mean Corpuscular Volume 91.5 80.0-98.0 fL Mean Corpuscular Hemoglobin 30.6 27.0-33.0 pg Mean Corpuscular HGB Conc 33.4 31.0-36.0 g/dl Red Cell Distribution Width 12.0 11.0-16.0 % Platelet Count 199 160-400 X10*3/uL Mean Platelet Volume 10.5 9.4-12.4 fL Neutrophils Percent Auto 57.4 45-73 % Imm Gran Pct Auto 0.3 0.0-0.4 % Lymphocytes Percent Auto 25.1 20-40 % Monocytes Percent Auto 13.4 2-11 % Eosinophils Percent Auto 3.0 0-4 % Basophils Percent Auto 0.8 0-2 % NRBC Pct Auto 0.0 0.0-0.2 /100WBC Neutrophils Absolute Auto 5.0 2.0-8.3 x10*3/u L Imm Gran Abs Auto 0.03 0.00-0.03 X10*3/uL Lymphocytes Absolute Auto 2.2 1.2-4.9 X10*3/u L Monocytes Absolute Auto 1.2 0.1-1.2 X10*3/uL Eosinophils Absolute Auto 0.3 0.0-0.4 X10*3/u L Basophils Absolute Auto 0.1 0.0-0.2 X10*3/uL NRBC Abs Auto 0.000 0.0-0.012 X10*3/uL Basic Metabolic Panel Reviewed date:03/27/2024 12:20:24 PM Interpretation: Performing Lab:[facility], [address] [place] [phone] Notes/Report: Sodium 139 135-145 mmol/L Potassium 4.4 3.3-5.1 mmol/L Chloride 103 96-108 mmol/L Carbon Dioxide 28 22-29 mmol/L Anion Gap 12 12-20 Blood Urea Nitrogen 18 9-16 mg/dL Creatinine 0.95 0.5-1.4 mg/dL Estimated Glomerular Filt Rate > 60 NOTE: For -English individuals, multiply the result by 1.210. Chronic Kidney Disease: Estimated GFR < 60 mL/min/1.73m2 Severe Kidney Disease: Estimated GFR < 15 mL/min/1.73m2 Glucose Random 128 60-115 mg/dL Calcium 9.6 8.4-10.2 mg/dL Hemoglobin A1c Reviewed date:03/27/2024 12:04:26 PM Interpretation: Performing Lab:[facility], [address] [place] [phone] Notes/Report: Hemoglobin A1c % 5.8 <6.0 % Hemoglobin A1C Reference Range Adults: 4.8 - 6.0 % Non diabetic: < 6.0 % Goal: < 7.0 % Additional Action Suggested: > 8.0 % Note: Hemoglobin A1c results are invalid for patients with abnormal amounts of HbF. Blood transfusions may impact the HbA1c concentration in the patient sample. Estimated Average Glucose 120 eAG = Estimated average glucose which is %A1C expressed as average glucose, using the formula of the E3X-Oghlsob Average Glucose study (ADAG), Diabetes Care, Vol.31,#8, 2007 Complete Blood Count Auto Di ff Reviewed date:07/03/2024 05:03:13 PM Interpretation: Performing Lab:[facility], [address] [place] [phone] Notes/Report: White Blood Count 8.5 4.8-10.8 X10*3/uL [...] NRBC Abs Auto 0.000 0.0-0.012 X10*3/uL Comprehensive [place]. Panel Fa st Reviewed date:07/03/2024 12:20:41 PM Interpretation: Performing Lab:[facility], [address] [place] [phone] Notes/Report: Sodium 140 135-145 mmol/L Potassium 4.2 3.3-5.1 mmol/L Chloride 105 96-108 mmol/L Carbon Dioxide 28 22-29 mmol/L Anion Gap 11 12-20 Blood Urea Nitrogen 16 9-16 mg/dL Creatinine 0.91 0.5-1.4 mg/dL Estimated Glomerular Filt Rate > 60 NOTE: For -English individuals, multiply the result by 1.210. Chronic [...] Panel Reviewed date:07/03/2024 12:16:21 PM Interpretation: Performing Lab:[facility], [address] [place] [phone] Notes/Report: Triglycerides 103 <150 mg/dL Desirable Triglyceride: [...] (Free>4and<10) Reviewed date:07/03/2024 12:17:59 PM Interpretation: Performing Lab:[facility], [address] [place] [phone] Notes/Report: PSA,Total (Free>4and<10) 0.31 0.00-4.00 ng/mL A [...] Random Reviewed date:07/03/2024 12:30:42 PM Interpretation: Performing Lab:[address] [phone] Notes/Report: Creatinine Urine 52.54 Microalbumin Urine < 5.0 Microalbum/Creatinine Ratio Ur TNP <30 ug/mg cr Unable to calculate albumin/creatinine ratio due to low microalbumin or creatinine result. Hemoglobin A1c Reviewed date:07/03/2024 12:16:31 PM Interpretation: Performing Lab:[address] [phone] Notes/Report: Hemoglobin A1c % 5.6 <6.0 % [...] average glucose, using the formula of the P9U-Qpxtlrj Average Glucose study (ADAG), Diabetes Care, Vol.31,#8, May. 2007 UA ClnCatch+Micro w/rflx Cul t Reviewed date:07/03/2024 12:27:43 PM Interpretation: Performing Lab:[address] [phone] Notes/Report: Urine, Clean Catch Color Urine Yellow Appearance Urine Clear PH 5.5 5.0-9.0 Glucose Urine UA Negative Negative mg/dL Urine Blood Negative Negative Specific [place] - Urine 1.010 1.005-1.025 Urine Protein Negative Neg-Trace mg/dL Urine Ketones Negative Negative mg/dL Nitrite Urine Negative Negative Leukocyte Esterase Urine Negative Negative RBC Urine 0-2 0-2 /HPF WBC Urine 0-5 0-5 /HPF Squamous Epithelial Cell Urine 0-2 0-2 /HPF Bacteria Urine None Seen None Seen Hyaline Casts Urine 0-2 0-2 /LPF Liver Panel Reviewed date:01/02/2025 12:30:46 PM Interpretation: Performing Lab:[address] [phone] Notes/Report: Bilirubin Total 0.6 0.0-1.0 mg/dL Bilirubin Direct 0.3 0.0-0.5 mg/dL Aspartate Amino Transferase 29 5-37 U/L Alanine Aminotransferase 22 0-40 U/L Total Protein 7.6 6.5-8.0 g/dL Albumin Level 3.9 3.5-5.0 g/dL Alkaline Phosphatase 80 39-117 U/L Glucose Fasting Reviewed date:01/02/2025 12:30:54 PM Interpretation: Performing Lab:[address] [phone] Notes/Report: Glucose Fasting 118 60-99 mg/dL A fasting glucose from 100-125 mg/dl is considered impaired (pre-diabetes). Lipid Panel with Reflex Reviewed date:01/02/2025 12:31:05 PM Interpretation: Performing Lab:[address] [phone] Notes/Report: Triglycerides 118 <150 mg/dL Desirable Triglyceride: [...] A1c Reviewed date:01/03/2025 06:16:13 PM Interpretation: Performing Lab:[facility], [address] [place] [phone] Notes/Report: Hemoglobin A1c % 5.6 <6.0 % [...] average glucose, using the formula of the D6A-Oojsmub Average Glucose study (ADAG), Diabetes Care, Vol.31,#8, May. 2007 Electrocardiogram (EKG) Reviewed date:04/11/2024 08:01:33 AM Interpretation: Performing Lab: Notes/Report: Johnie Milner Reviewed date:03/27/2024 11:56:17 AM Interpretation: Performing Lab:[facility], [address] [place] [phone] Notes/Report: Johnie Milner See Note Specimen held untested for 24 hours; Call to request Chemistry testing. Johnie Milner Reviewed date:01/02/2025 12:23:00 PM Interpretation: Performing Lab:[facility], [address] [place] [phone] Notes/Report: Johnie Milner See Note Specimen held untested for 24 hours; Call to request Chemistry testing. Complete Blood Count Auto Di ff Reviewed date:01/06/2025 08:02:47 PM Interpretation: Performing Lab:[facility], [address] [place] [phone] Notes/Report: White Blood Count 12.8 4.8-10.8 X10*3/uL Red Blood Count 4.34 4.60-5.80 X10*6/uL Hemoglobin 13.2 14.0-18.0 g/dl Hematocrit 39.8 42.0-52.0 % Mean Corpuscular Volume 91.7 80.0-98.0 fL Mean Corpuscular Hemoglobin 30.4 27.0-33.0 pg Mean Corpuscular HGB Conc 33.2 31.0-36.0 g/dl Red Cell Distribution Width 12.5 11.0-16.0 % Platelet Count 187 160-400 X10*3/uL Mean Platelet Volume 10.0 9.4-12.4 fL Neutrophils Percent Auto 69.3 45-73 % Imm Gran Pct Auto 0.5 0.0-0.4 % Lymphocytes Percent Auto 20.3 20-40 % Monocytes Percent Auto 8.2 2-11 % Eosinophils Percent Auto 1.2 0-4 % Basophils Percent Auto 0.5 0-2 % NRBC Pct Auto 0.0 0.0-0.2 /100WBC Neutrophils Absolute Auto 8.9 2.0-8.3 x10*3/u L Imm Gran Abs Auto 0.07 0.00-0.03 X10*3/uL Lymphocytes Absolute Auto 2.6 1.2-4.9 X10*3/u L Monocytes Absolute Auto 1.1 0.1-1.2 X10*3/uL Eosinophils Absolute Auto 0.2 0.0-0.4 X10*3/u L Basophils Absolute Auto 0.1 0.0-0.2 X10*3/uL NRBC Abs Auto 0.000 0.0-0.012 X10*3/uL Comprehensive Met. Panel Reviewed date:01/06/2025 08:04:15 PM Interpretation: Performing Lab:[facility], [address] [place] [phone] Notes/Report: Sodium 140 135-145 mmol/L Potassium 4.1 3.3-5.1 mmol/L Chloride 111 96-108 mmol/L Carbon Dioxide 22 22-29 mmol/L Anion Gap 11 12-20 Blood Urea Nitrogen 24 9-16 mg/dL Creatinine 0.85 0.5-1.4 mg/dL Creatinine Clr Calc Pharmacy 130.3 eGFR (calculated from the MDRD study equation) and eCrCl (calculated from the Cockcroft-Gault equation) are based on different parameters and may not yield comparable results. If eCrCl result is absurd, please check patient's height/weight. Estimated Glomerular Filt Rate > 60 Chronic Kidney Disease: Estimated GFR < 60 mL/min/1.73m2 Severe Kidney Disease: Estimated GFR < 15 mL/min/1.73m2 Glucose Random 102 60-115 mg/dL Calcium 8.7 8.4-10.2 mg/dL Bilirubin Total 0.7 0.0-1.0 mg/dL Aspartate Amino Transferase 18 5-37 U/L Alanine Aminotransferase 16 0-40 U/L Total Protein 6.7 6.5-8.0 g/dL Albumin Level 3.6 3.5-5.0 g/dL Alkaline Phosphatase 69 39-117 U/L Magnesium Reviewed date:01/06/2025 07:58:26 PM Interpretation: Performing Lab:[address] [phone] Notes/Report: Magnesium 1.8 1.6-2.6 mg/dL Lipase Reviewed date:01/06/2025 07:58:34 PM Interpretation: Performing Lab:[facility], [address] [place] [phone] Notes/Report: Lipase 23 8-78 U/L CT NG by PCR Reviewed date:01/07/2025 02:59:49 PM Interpretation: Performing Lab:[address] [phone] Notes/Report: Urine CT PCR NOT DETECTED Not Detect. A not detected test result does not exclude the possibility of infection because test results can be affected by improper specimen collection, concurrent antibiotic therapy, or the number of organisms in the specimen which may be below the sensitivity of the test. As with many diagnostic tests, results from the Xpert CT/NG assay should be interpreted in conjunction with other laboratory and clinical data available to the clinician. Xpert CT/NG performance has not been evaluated in patients less than 14 years of age. The assay should not be used for the evaluation of suspected sexual abuse or for other medico-legal indications. Additional testing is recommended in any circumstance when false positive or false negative results could lead to adverse medical, social or psychological consequences. NG PCR NOT DETECTED Not Detect. A not detected test result does not exclude the possibility of infection because test results can be affected by improper specimen collection, concurrent antibiotic therapy, or the number of organisms in the specimen which may be below the sensitivity of the test. As with many diagnostic tests, results from the Xpert CT/NG assay should be interpreted in conjunction with other laboratory and clinical data available to the clinician. Xpert CT/NG performance has not been evaluated in patients less than 14 years of age. The assay should not be used for the evaluation of suspected sexual abuse or for other medico-legal indications. Additional testing is recommended in any circumstance when false positive or false negative results could lead to adverse medical, social or psychological consequences. UA CC w/rflx Micro + Cult Reviewed date:01/08/2025 04:41:34 PM Interpretation: Performing Lab:[facility], [address] [place] [phone] Notes/Report: Urine, Clean Catch Color Urine Yellow Appearance Urine Clear PH 5.5 5.0-9.0 Glucose Urine UA Negative Negative mg/dL Urine Blood Negative Negative Specific [place] - Urine 1.015 1.005-1.025 Urine Protein Negative Neg-Trace mg/dL Urine Ketones Negative Negative mg/dL Nitrite Urine Negative Negative Leukocyte Esterase Urine Negative Negative CT abdomen pelvis wo con Reviewed date:01/06/2025 08:03:52 PM Interpretation: Performing Lab: Notes/Report: [address] [address] [address] Scan Report Signed Patient: Mahin Ambrocio MR#: [id number] 045 : 1955 Acct:[id number] Age/Sex: 69 / M ADM Date: 01/06/25 Loc: HO.ED Attending Dr: Ordering Physician: Cristina Birmingham Date of Service: 01/06/25 Procedure(s): CT abdomen pelvis wo IV con Accession Number(s): [id number] cc: Blue Acosta MD; Cristina Birmingham Report Number: [id number]: Total DLP = 1401.00 mGy-cm EXAMINATION: CT ABDOMEN AND PELVIS WITHOUT CONTRAST CLINICAL INFORMATION: Left flank pain. COMPARISON: September 05, 2021. TECHNIQUE: Multidetector volumetric imaging was performed from the superior aspect of the liver through the pubic symphysis. Sagittal and coronal reformatted images were obtained on the technologist's workstation. This CT examination was performed using dose optimization techniques as appropriate, variously including the following: *Automated exposure control *Adjustment of mA and/or kV according to patient size (this includes techniques or standardized protocols for targeted exams where dose is matched to indication/reason for exam; i.e. extremities or head) *Use of iterative reconstruction technique DLP: 1401 mGy centimeter. FINDINGS: Limited evaluation of the intra-abdominal organs and vascular structures due to lack of IV contrast. LUNG BASES: Small trace left-sided pleural effusion. LIVER, GALLBLADDER, AND BILIARY TREE: Liver measures 15 cm. Status post cholecystectomy. No intrahepatic or extrahepatic biliary ductal dilatation. PANCREAS: No peripancreatic fluid collections. No main pancreatic ductal dilatation. Decreased attenuation throughout the pancreatic parenchyma. SPLEEN: 9 cm. ADRENAL GLANDS: No nodular lesions. KIDNEYS AND URETERS: No hydronephrosis or nephrolithiasis in either kidney. 3.3 cm exophytic cystic lesion posterior midportion right kidney. BLADDER: Fluid-filled. GASTROINTESTINAL TRACT: Mild mesenteric edema pattern. Abundant stool. No intestinal obstruction pattern. Residual contrast throughout the left hemicolon. No pneumatosis intestinalis. No pneumoperitoneum. No ascites. Appendix is not identified. ABDOMINAL WALL: Fat-containing umbilical hernia, moderate to large volume. Fat-containing left inguinal hernia, small. LYMPH NODES: No lymphadenopathy, mesenteric or retroperitoneal. VASCULAR: No aneurysm, abdominal aorta. Calcified plaques throughout the abdominal aorta wall and iliac arteries the origin of the mesenteric arteries and main renal arteries. PELVIC VISCERA: Inadequate evaluation. OSSEOUS STRUCTURES: Osteoarthrosis both hips. Syndesmophyte formation and both sacroiliac joints. Multilevel lower lumbar spondylosis and lower thoracic spondylosis. Grade 1 anterolisthesis L4-5 on a degenerative basis. CT/CT abdomen pelvis wo IV con IMPRESSION: No hydronephrosis or nephrolithiasis. Nonspecific mild mesenteric edema pattern. Fat-containing umbilical hernia, moderate to large volume. Small left-sided pleural effusion. 3.3 cm exophytic cyst, right kidney. Fleischner guidelines were followed. Electronically signed by: Pete Balbuena MD 01/06/2025 02:14 PM EDT Dictated By: Pete Jauregui MD Signed By: <Electronically signed by Pete Lane MD in [place]> 01/06/25 1414 DD/ 1310 TD/TT: 01/06/25 1402 Senior Oracle Database Administrator: [address] [address] [address] Scan Report Signed Patient: Ziyad Ambrocio in G MR#: [id number] 045 : 1955 Acct:[id number] Age/Sex: 69 / M ADM Date: 01/06/25 Loc: HO.ED Attending Dr: Ordering Physician: Cristina Birmingham Date of Service: 01/06/25 Procedure(s): CT abd omen pelvis wo IV con Accession Number(s): [id number] cc: Blue Acosta MD; Cristina Birmingham Report Number: [id number]: Total DLP = 1401.00 mGy-cm EXAMINATION: CT ABDOMEN AND PELVI S WITHOUT CONTRAST CLINICAL INFORMATION: Left flank pain. COMPARISON: September 05, 2021. TECHNIQUE: Multidetector volume tric imaging was performed from the superior aspect of the liver through the pubic symphysis. Sagittal and coronal reformatted images w ere obtained on the technologist's workstation. This CT examination was performed using dose optimization techniques as appropriate, various ly including the following: *Automated exposure control *Adjustment of mA an d/or kV according to patient size (this includes techniques or standardized protocols for targeted exams where dose is matched to indication/reason for exam; i.e. extremities or head) *Use of iterative reconstruction technique DLP: 1401 mGy centimeter. FINDINGS: Limited evaluation o f the intra-abdominal organs and vascular structures due to la ck of IV contrast. LUNG BASES: Small tr ellis left-sided pleural effusion. LIVER, GALLBLADDER, AND BILIARY TREE: Liver measures 15 cm. Status post cholecystectomy. No intrahepatic or extrahepatic biliary ductal dilatation. PANCREAS: No peripancreatic fluid collections. No main pancreatic ductal dilatation. Decreased attenuation throughout the pancreatic parenchyma. SPLEEN: 9 cm. ADRENAL GLANDS: No nodular lesions. KIDNEYS AND URETERS: No hydronephrosis or nephrolithiasis in either kidney. 3.3 cm exophytic cys tic lesion posterior midportion right kidney. BLADDER: Fluid-filled. GASTROINTESTINAL TRACT: Mild mesenteric hortensia a pattern. Abundant stool. No intestinal obstruction pattern. Residual contrast throughout the left hemicolon. No pneumatosis intestinalis. No pneumoperitoneum. No ascites. Appendix is not identified. ABDOMINAL WALL: Fat-containing umbilical hernia, moderate to large volume. Fat-containi ng left inguinal hernia, small. LYMPH NODES: No lymphadenopathy, mesenteric or retroperitoneal. VASCULAR: No aneurys m, abdominal aorta. Calcified plaques throughout the abdominal aorta wall and iliac arteries the origin of the mesenteric arteries and main renal arteries. PELVIC VISCERA: Inadequate evaluation. OSSEOUS STRUCTURES: Osteoarthrosis both hips. Syndesmophyte formation and both sacroiliac joints. Multilevel lower lumbar spondylosis and lower thoracic spondylosis. Grade 1 anterolisthesis L4-5 on a degenerative basis. C T/CT abdomen pelvis wo IV con IMPRESSION: No hydronephrosis or nephrolithiasis. Nonspecific mild mesenteric edema pattern. Fat-containing umbil ical hernia, moderate to large volume. Small left-sided ple ural effusion. 3.3 cm exophytic cys t, right kidney. Fleischner guideline s were followed. Electronically bouchra d by: Pete Balbuena MD 01/06/2025 02:14 PM EDT RP Dictated By: Pete Vegas MD Signed By: <Electronically signed by Pete Lane MD in [place]> 01/06/25 1414 DD/ 1310 TD/TT: 01/06/25 1402 Senior Oracle Database Administrator: US scrotum Reviewed date:01/07/2025 03:00:25 PM Interpretation: Performing Lab: Notes/Report: [address] [address] Ultrasound Report Signed Patient: Mahin Ambrocio MR#: [id number] 045 : 1955 Acct:[id number] Age/Sex: 69 / M ADM Date: 01/06/25 Loc: HO.ED Attending Dr: Ordering Physician: Omid Lopez MD Date of Service: 01/06/25 Procedure(s): US scrotum Accession Number(s): [id number] cc: Blue Acosta MD; Omid Lopez MD CLINICAL HISTORY: L testicular pain. Ultrasound scrotum. COMPARISON: None Technique: Real time sonographic imaging, including color-flow imaging, was performed by the label sewer. Multiple sales solutions representative static images were saved for review. FINDINGS: Right side: Right testicle is normal in size and echotexture. Normal color flow and spectral tracing. No hydrocele or varicocele. Mild enlargement of the tail of the epididymis with small echogenic foci. Echogenic foci likely represent small calcifications. There is mildly increased flow within the tail of the epididymis. Right testicle: 3.0 x 1.9 x 2.1 cm Left side: Left testicle is normal in size and echotexture. Normal color flow and spectral tracing. No hydrocele or varicocele. Normal left epididymis. Left testicle: 3.0 x 1.9 x 2.1 cm IMPRESSION: 1. No evidence of testicular torsion. 2. Mildly increased vascularity within the tail of the prominent right epididymis raises suspicion for epididymitis This document has been electronically signed by: Levy Bonilla MD on 01/06/2025 18:16:24 Dictated By: Levy Bonilla MD Signed By: <Electronically signed by Levy Bonilla MD in [place]> 01/07/25 0804 DD/ 15 TD/TT: 01/06/251815 Senior Oracle Database Administrator: [place] [address] Ultrasound Report Signed Patient: Ziyad Ambrocio MR#: [id number] 045 : 1955 Acct:[id number] Age/Sex: 69 / M ADM Date: 01/06/25 Loc: HO.ED Attending Dr: Ordering Physician: Omid Lopez MD Date of Service: 01/06/25 Procedure(s): US scrotum Accession Number(s): [id number] cc: Blue Acosta MD; Omid Lopez MD CLINICAL HISTORY: L testicular pain. Ultrasound scrotum. COMPARISON: None Technique: Real time sonographic imaging, including color-flow imaging, was performed by the label sewer. Multiple sales solutions representative static images were saved for review. FINDINGS: Right side: Right testicle is no rmal in size and echotexture. Normal color flow and spectral tracing. No hydrocele or varicocele. Mild enlargement of the tail of the epididymis with small echogenic foci. Echogenic foci likel y represent small calcifications. There is mildly increased flow withi n the tail of the epididymis. Right testicle: 3.0 x 1.9 x 2.1 cm Left side: Left testicle is nor mal in size and echotexture. Normal color flow and spectral tracing. No hydrocele or varicocele. Normal left epididymis. Left testicle: 3.0 x 1.9 x 2.1 cm IMPRESSION: 1. No evidence of testicular torsion. 2. Mildly increased vascularity within the tail of the prominent right epididymis raises suspicion for epididymitis This document has be en electronically signed by: Levy Bonilla MD on 01/06/2025 18:16:24 Dictated By: Jasmin Bonilla MD Signed By: <Electronically signed by Levy Bonilla MD in [place]> 01/07/25 0804 DD/ 15 TD/TT: 01/06/251815 Senior Oracle Database Administrator: US scrotum doppler Reviewed date:01/06/2025 08:04:52 PM Interpretation: Performing Lab: Notes/Report: [place] [address] Ultrasound Report Signed Patient: Mahin Ambrocio MR#: [id number] 045 : 1955 Acct:[id number] Age/Sex: 69 / M ADM Date: 01/06/25 Loc: HO.ED Attending Dr: Ordering Physician: Louise Callejas Date of Service: 01/06/25 Procedure(s): US scrotum doppler Accession Number(s): [id number] cc: Blue Acosta MD; Louise Callejas CLINICAL HISTORY: L testicular pain. Ultrasound scrotum. COMPARISON: None Technique: Real time sonographic imaging, including color-flow imaging, was performed by the label sewer. Multiple sales solutions representative static images were saved for review. FINDINGS: Right side: Right testicle is normal in size and echotexture. Normal color flow and spectral tracing. No hydrocele or varicocele. Mild enlargement of the tail of the epididymis with small echogenic foci. Echogenic foci likely represent small calcifications. There is mildly increased flow within the tail of the epididymis. Right testicle: 3.0 x 1.9 x 2.1 cm Left side: Left testicle is normal in size and echotexture. Normal color flow and spectral tracing. No hydrocele or varicocele. Normal left epididymis. Left testicle: 3.0 x 1.9 x 2.1 cm IMPRESSION: 1. No evidence of testicular torsion. 2. Mildly increased vascularity within the tail of the prominent right epididymis raises suspicion for epididymitis This document has been electronically signed by: Levy Bonilla MD on 01/06/2025 18:16:24 Dictated By: Levy Bonilla MD Signed By: <Electronically signed by Levy Bonilla MD in [place]> 01/06/251815 DD/ 15 TD/TT: 01/06/251815 Senior Oracle Database Administrator: [place] [address] Ultrasound Report Signed Patient: Ziyad Ambrocio MR#: [id number] 045 : 1955 Acct:[id number] Age/Sex: 69 / M ADM Date: 01/06/25 Loc: HO.ED Attending Dr: Ordering Physician: Louise Callejas Date of Service: 01/06/25 Procedure(s): US scr otum doppler Accession Number(s): [id number] cc: Blue Acosta MD; Louise Callejas CLINICAL HISTORY: L testicular pain. Ultrasound scrotum. COMPARISON: None Technique: Real time sonographic imaging, including color-flow imaging, was performed by the label sewer. Multiple sales solutions representative static images were saved for review. FINDINGS: Right side: Right testicle is no rmal in size and echotexture. Normal color flow and spectral tracing. No hydrocele or varicocele. Mild enlargement of the tail of the epididymis with small echogenic foci. Echogenic foci likel y represent small calcifications. There is mildly increased flow withi n the tail of the epididymis. Right testicle: 3.0 x 1.9 x 2.1 cm Left side: Left testicle is nor mal in size and echotexture. Normal color flow and spectral tracing. No hydrocele or varicocele. Normal left epididymis. Left testicle: 3.0 x 1.9 x 2.1 cm IMPRESSION: 1. No evidence of testicular torsion. 2. Mildly increased vascularity within the tail of the prominent right epididymis raises suspicion for epididymitis This document has be en electronically signed by: Levy Bonilla MD on 01/06/2025 18:16:24 Dictated By: Jasmin Bonilla MD Signed By: <Electronically signed by Levy Bonilla MD in OV> 01/06/25 1816 DD/ 15 TD/TT: 01/06/251815 Senior Oracle Database Administrator: XR chest 2V Reviewed date:01/13/2025 02:56:25 PM Interpretation: Performing Lab: Notes/Report: [address] [address] XRay Report Signed Patient: Mahin Ambrocio MR#: [id number] : 1955 Acct:[id number] Age/Sex: 69 / M ADM Date: 01/09/25 Loc: HO.XRAY Attending Dr: Blue Acosta MD Ordering Physician: Blue Acosta MD Date of Service: 01/09/25 Procedure(s): XR chest 2V Accession Number(s): [id number] cc: Blue Acosta MD EXAMINATION: XR CHEST CLINICAL INFORMATION: Pleural effusion COMPARISON: July 29, 2022. TECHNIQUE: 2 views of the chest were obtained. FINDINGS: Pulmonary reticular pattern. No consolidation, pleural effusion or pneumothorax. No hyperinflation. Cardiomediastinal silhouette size is normal. Multilevel thoracic spondylosis. Degenerative changes in the acromioclavicular joints. XR/XR chest 2V IMPRESSION: No acute airspace disease. Stable. Electronically signed by: Pete Balbuena MD 01/09/2025 10:59 AM EDT Dictated By: Pete Jauregui MD Signed By: <Electronically signed by Pete Lane MD in OV> 01/09/25 1059 DD/ 1000 TD/TT: 01/09/25 1010 Senior Oracle Database Administrator: [address] [address] XRay Report Signed Patient: Ziyad Ambrocio MR#: [id number] : 1955 Acct:[id number] Age/Sex: 69 / M ADM Date: 01/09/25 Loc: HO.XRAY Attending Dr: Blue Acosta MD Ordering Physician: Blue Acosta MD Date of Service: 01/09/25 Procedure(s): XR isaias st 2V Accession Number(s): [id number] cc: Blue Acosta MD EXAMINATION: XR CHEST CLINICAL INFORMATION: Pleural effusion COMPARISON: July 29, 2022. TECHNIQUE: 2 views of the chest were obtained. FINDINGS: Pulmonary reticular pattern. No consolidation, pleural effusion or pneumothorax. No hyperinflation. Cardiomediastinal silhouette size is normal. Multilevel thoracic spondylosis. Degenerative changes in the acromioclavicular joints. X R/XR chest 2V IMPRESSION: No acute airspace disease. Stable. Electronically bouchra d by: Pete Balbuena MD 01/09/2025 10:59 AM EDT RP Dictated By: Pete Vegas MD Signed By: <Electronically signed by Pete Lane MD in OV> 01/09/25 1059 DD/ 1000 TD/TT: 01/09/25 1010 Senior Oracle Database Administrator: Reason For Referral No Information Medications Medication SIG (Take, Route, Frequency, Duration) Notes Start Date End Date Status Xarelto 20 MG 1 tablet with food Orally Once a day Active Nitrostat 0.4 MG 1 tablet under the tongue and allow to dissolve as needed Sublingual every 15 min for pain. may repeat time 3 for 30 days 05/16/2012 Not-Taking Flecainide Acetate 100 MG 1 tablet Orall y twice a day Active Gabapentin 300 MG 3 capsules qhs Orall y Once a day hs Active diazePAM 5 MG 1-2 tablet as needed Orally every 8 hours Not-Taking traMADol HCl 50 MG 1 tablet Orally Once a day Active ProAir HFA 108 (90 Base) MCG/ACT 2 puffs as needed Inhalation every 4 hrs for 30 days 11/20/2016 Not-Taking Atorvastatin Calcium 20 MG TAKE 1 TABLET BY MOUTH EVERY DAY Active predniSONE 20 MG 2 tabs Orally Once a day Active Meclizine HCl 25 MG TAKE 1 TABLET BY DARIA TH EVERY DAY NEEDED for 30 Not-Taking Cyclobenzaprine HCl 10 MG 1 tablet at be dtime as needed Orally Once a day Active Mupirocin 2 % 1 application Externally Three times a day for 10 days 01/24/2021 Not-Taking levoFLOXacin 500 MG 1 tablet Orally Once a day Active Celecoxib 200 MG TAKE 1 CAPSULE BY MOUTH EVERY DAY for 90 Active Morphine Sulfate 15 MG 1 tablet as neede d Orally every 4 hrs Active Triamcinolone Acetonide 0.5 % APPLY TO AFFECTED AREA TWICE A DAY EXTERNALLY FOR 30 DAYS for 30 Active Metoprolol Succinate ER 50 MG TAKE 1 TABLET BY MOUTH EVERY DAY for 90 Active Lisinopril 20 MG TAKE 1 TABLET BY DARIA TH EVERY DAY Active Immunizations Vaccine Route Administration Date Status Comme nts Flu Vaccine IM Intramuscular 06/09/2011 Administered Flu Vaccine IM Intramuscular 07/09/2012 Administered Flu Vaccine IM Intramuscular 07/22/2013 Administered Fluarix Quadrivalent IM Intramuscular 06/16/2014 Administe red PPSV23 (Pnemovax) IM Intramuscular 09/22/2014 Administered Fluarix Quadrivalent IM Intramuscular 07/02/2015 Administe red Shingles IM Intramuscular 10/05/2015 Administered Prevnar 13 IM Intramuscular 10/05/2015 Administered Fluarix Quadrivalent IM Intramuscular 07/06/2016 Administe red Fluarix Quadrivalent IM Intramuscular 07/06/2016 Administe red Fluarix Quadrivalent IM Intramuscular 06/19/2017 Administe red Shingrix IM Intramuscular 05/14/2018 Administered TDaP IM Intramuscular 05/31/2018 Administered pt was given the vaccine at [facility] on [facility]. Fluarix Quadrivalent IM Intramuscular 06/24/2018 Administe red Shingrix IM Intramuscular 07/16/2018 Administered Tetanus Unknown 05/31/2018 Administered Fluarix Quadrivalent IM Intramuscular 06/24/2019 Administe red PPSV23 (Pnemovax) IM Intramuscular 11/18/2019 Administered Influenza High Dose IM Intramuscular 06/25/2020 Administer ed Covid Vaccine Unknown 12/17/2020 Administered Moderna Covid Vaccine Unknown 01/14/2021 Administered Moderna Influenza High Dose IM Intramuscular 06/27/2021 Administer ed Influenza High Dose IM Intramuscular 06/27/2021 Administer ed SARS-COV-2 Moderna Unknown 01/26/2022 Administered [facility] Influenza High Dose IM Intramuscular 07/13/2022 Administer ed Influenza High Dose IM Intramuscular 06/22/2023 Administer ed Fluarix Quadrivalent - 150 IM Intramuscular 07/03/2024 Administered Flu Vaccine Unknown 06/16/2014 Pending Social History Tobacco Use: Social History Observation [...] ast year? No Points 0 Interpretation Negative Problems Problem Type SNOMED Code ICD Code Onset Dates Problem Status W/U Status Risk Notes Problem 840017902 Diverticulitis (K57.92) Active confirmed Problem 359770324 Mixed hyperlipidemia (E78.2) Active confirmed Problem 349076780 Paroxysmal atria l fibrillation (I48.0) Active confirmed Problem 25215081 Atherosclerosis of aorta (I70.0) Active confirmed Problem 03055774170747759 Acute recurren t frontal sinusitis (J01.11) Active confirmed Problem 640472266 Angina effort (I20.8) Active confirmed Problem 432469597 Lumbar disc disease (M51.9) Active confirmed Problem 352833217 Tubular adenoma of colon (D12.6) Active confirmed Problem 93553924 Essential hypertension (I10) Active confirmed Problem 8337513 Prediabetes (R73.09) Active confirmed Problem 340202309 Morbid obesity d ue to excess calories (E66.01) Active confirmed Problem 729444563 Cervical disc disease (M50.90) Active confirmed Problem 593239590 Hammertoe of lef t foot (M20.42) Active confirmed Vital Signs Blood pressure diastolic 80 mm Hg 01/09/2025 eliezer ght is down 6 pounds since 07-10-24 Height 73 in 01/09/2025 weight is down 6 pounds since 07-10-24 Blood pressure systolic 158 mm Hg 01/09/2025 weig ht is down 6 pounds since 07-10-24 Weight 338 lbs 01/09/2025 weight is down 6 pounds since 07-10-24 BMI 44.59 kg/m2 01/09/2025 weight is down 6 pounds since 07-10-24 Encounters Encounter Location Date Provider Diagnosis Blue Acosta MD [address] [place] [address] [id number] 03/27/2024 Blue Acosta Essential hypertensi on I10 ; Prediabetes R73.09 and Preoperative clearance Z01.818 Blue Acosta MD [address] [place] [address] [id number] 07/03/2024 Blue Acosta Mixed hyperlipidemia E78.2 ; Encounter for immunization Z23 ; Essential hypertension I10 and Prediabetes R73.09 Blue Acosta MD [address] [id number] 01/02/2025 Blue Acosta Mixed hyperlipidemia E78.2 and Prediabetes R73.09 Blue Acosta MD [address] [id number] 04/08/2024 Blue Acosta Pre-op evaluation Z01.818 and Hammertoe of left foot M20.42 Blue Acosta MD [address] [place] [address] [id number] 07/10/2024 Blue Acosta Essential hypertensi on I10 ; Prediabetes R73.09 ; Morbid obesity due to excess calories E66.01 ; Guaiac positive stools R19.5 ; Mixed hyperlipidemia E78.2 ; Colon cancer screening Z12.11 ; Depression screening Z13.31 and Paroxysmal atrial fibrillation I48.0 Blue Acosta MD [address] [place] [address] [id number] 01/09/2025 Blue Acosta Pleural effusion J90 ; Lumbar disc disease with radiculopathy M51.16 ; Foot drop, left M21.372 ; Prediabetes R73.09 and Mixed hyperlipidemia E78.2 Blue Acosta MD [address] [place] [address] [id number] 04/11/2024 Blue Acosta MD [address] [place] [address] [id number] 01/08/2025 Blue Acosta MD [address] [place] [address] [id number] 01/12/2025 Blue Acosta MD [address] [place] [address] [id number] 01/13/2025 Blue Acosta Pleural effusion J90 Assessments Encounter Date Diagnosis (ICD Code) Assessment Notes Treatment Notes Treatment Clinical Notes Section Notes 03/27/2024 Essential hypertension (ICD-10 - I10) 03/27/2024 Prediabetes (ICD-10 - R73.09) 07/03/2024 Mixed hyperlipidemia (ICD-10 - E78.2) 07/03/2024 Encounter for immunization (ICD-10 - Z23) 01/02/2025 Mixed hyperlipidemia (ICD-10 - E78.2) 04/08/2024 Pre-op evaluation (ICD-10 - Z01.818) no need for further evaluation prior to upcoming surgery. cleared 04/08/2024 Hammertoe of left foot (ICD-10 - M20.42) repair scheduled 04/2307/10/2024 Essential hypertension (ICD-10 - I10) stable, will contiue current regiment 07/10/2024 Prediabetes (ICD-10 - R73.09) is going to try dieting 01/09/2025 Pleural effusion (ICD-10 - J90) pending diagnostic testing, THE ORDER WAS PRINTED AND GIVEN TO MAHIN 01/09/2025 Lumbar disc disease with radiculopathy (ICD-10 - M51.16) pending diagnstic testing, THE ORDER HAS BEEN FAXED TO RAY FOR SCHEDULING 01/13/2025 Pleural effusion (ICD-10 - J90) Order made and put into the future order folder for . 03/27/2024 Preoperative clearance (ICD-10 - Z01.818) 07/03/2024 Essential hypertension (ICD-10 - I10) 01/02/2025 Prediabetes (ICD-10 - R73.09) 07/10/2024 Morbid obesity due to excess calories (ICD-10 - E66.01) hopefully get on diet 01/09/2025 Foot drop, left (ICD-10 - M21.372) pending diagnostic testing 07/03/2024 Prediabetes (ICD-10 - R73.09) 07/10/2024 Guaiac positive stools (ICD-10 - R19.5) has been evaluated in past. because stools are always positive he has colonoscopy every 5 years 01/09/2025 Prediabetes (ICD-10 - R73.09) stable, no need for medication at this time, will contiue to monitor 07/10/2024 Mixed hyperlipidemia (ICD-10 - E78.2) stable, will cntinue current regiment 01/09/2025 Mixed hyperlipidemia (ICD-10 - E78.2) stable, will continue current regiment 07/10/2024 Colon cancer screening (ICD-10 - Z12.11) guaiac negative 07/10/2024 Depression screening (ICD-10 - Z13.31) negative 07/10/2024 Paroxysmal atrial fibrillation (ICD-10 - I48.0) Plan Of Treatment Pending Test Test Name Order Date CT ABD & PELVIS WITH CONTRAST 09/07/2020 MRI LUMBAR SPINE NO CONTRAST 01/09/2025 XR CHEST 2 VIEW PA & LAT 01/09/2025 XR chest 2V 01/13/2025 Future Test Test Name Order Date CT ABD & PELVIS WITH CONTRAST 2020 Next Appt Details Provider Name:Bluelaya Arechiga ier, 07/10/2025 07:00:00 AM, [address] [place] [address], [address], [phone], Provider Name:Blue Melania Geni ier, 07/16/2025 08:00:00 AM, [address] [place] [address], [address], [phone], Insurance Providers Payer Name Payer Address Payer Phone Subscriber Number Group Number Insured Name Patient Relationship to Insured Coverage Start Date Coverage End Date MEDICARE NHIC SOL [address] [place] [address] [id number] Mahin Ambrocio Self - patient is the insured [facility] [address] [place] [id number] Mahin Ambrocio Self - patient is the insured Medical (General) History Medical History History ICD Code colonoscopy 04/2012 for recta l bleeding due in 10 years; Colonoscopy done 10/27/[address] Sanchez - repeat 5 years
--- OUTSIDE RECORDS SUMMARY | 2025-01-30 12:38 | XMS_ITS ---
Author Organization Blue Acosta MD Address [address] [place] [phone] Care Team Providers Care Offset Machine Operator Name Role Phone Blue Acosta Primary Care Provider REASON FOR VISIT MRI order Encounters Encounter Location Date Provider Diagnosis Blue Acosta MD [address] [facility] [address] [place], [place] [phone] 01/12/2025 Blue Acosta Plan Of Treatment Next Appt Details Provider Name:Blue Arechiga ier, 07/10/2025 07:00:00 AM, [address] [place] [address], [address] [facility], [place], [place], [phone], Provider Name:Blue Arechiga iebunny, 07/16/2025 08:00:00 AM, [address] [place] [address], [address] [place] [address], [phone], Progress Notes * Mahin JORGE GDOB:[birth year] (69 yo M)Acc No.[id number]:01/12/2025 Patient:?Mahin JORGE :1955???Age:69 Y???Sex:Male Address:[address] [place] [address] * true * Date:? Generated for Printi ng/Favidyag/eTransmitting on:?01/30/2025 12:38 PM EDT
--- OUTSIDE RECORDS SUMMARY | 2025-01-30 12:38 | XMS_ITS | Patient Health Record ---
Author Organization [facility] hallie Lucas Address [address] [place] [address] Care Team Providers Care Farmworker [employer]cing [employer] Name Role Phone Blue Acosta MD Primary Care Provider Milli Jimenez Unavailable [phone] Allergies Allergen (clinical drug ingredient) Drug/Non Drug [...] W/U Status Risk Notes Problem Tinea unguium (365295347) Tinea unguium (B35.1) Active confirmed Problem Acquired hammer toe of left foot (7115448379702489 ) Other hammer toe(s) (acquired), left foot (M20.42) Active confirmed Problem Localized, primary osteoarthritis of the ankle and/or foot (559696407) Arthritis of joint of lesser toe, left (M19.072) Active confirmed Problem Ischemic ulcer of left foot, 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) Active confirmed Response to treatment Vital Signs Blood pressure diastolic 58 mm Hg 05/20/2024 Height 6ft3in in 05/20/2024 Blood pressure systolic 122 mm Hg 05/20/2024 Weight 315 lbs 05/20/2024 BMI 39.37 kg/m2 05/20/2024 Encounters Encounter Location Date Provider Diagnosis [facility] [address] [place] [address] 04/23/2024 Milli Schulza [facility] [address] [place] [address] 04/10/2024 Milli Peric[place] Pain in left toe(s) M79.675 ; Other hammer toe(s) (acquired), left foot M20.42 and Exostosis of toe M89.8X7 [address] [address] 04/29/2024 Milli Perica Other hammer toe(s) (acquired), left foot M20.42 and Exostosis of toe M89.8X7 [address] [address] 05/06/2024 Milli Perica Other hammer toe(s) (acquired), left foot M20.42 and Exostosis of toe M89.8X7 [address] [address] 05/20/2024 Milli Perica Other hammer toe(s) (acquired), left foot M20.42 and Exostosis of toe M89.8X7 [address] [address] 04/23/2024 Milli Perica [address] [address] 04/24/2024 Milli Yost Assessments Encounter Date Diagnosis [...] X ray : Foot, left 3V 05/06/2024 22315-[id number] NAIL, 1-5 08/17/2023 43900-HDBTVZR NAIL, 1-5 03/31/2016 33865- Debride <25 sq cm 09/02/2013 12724- Debride <25 sq cm 08/17/2023 53993-OCGEXFF SKIN/TISSUE 07/07/2013 33447-BAYGMHM SKIN/TISSUE 07/22/2013 46263-QNXGZBR SKIN/TISSUE 08/12/2013 Insurance Providers Payer Name Payer Address Payer Phone Subscriber Number Group Number Insured Name Patient Relationship to Insured Coverage Start Date Coverage End Date Medicare National Govt Sv[employer] [address] [place] [address] [id number] Mahin Ha Self - patient is the insured [employer] [address] [place] [address] [id number] Mahin Ha Self - patient is [...]
--- OUTSIDE RECORDS SUMMARY | 2025-01-30 12:38 | XMS_ITS ---
Author Organization [facility] Address [address] [facility] [place] [address] Care Team Providers Care Rag Baler Name Role Phone Blue Acosta MD Primary Care Provider Milli Jimenez Unavailable [phone] Allergies Allergen (clinical drug ingredient) Drug/Non Drug [...] 024 Encounters Encounter Location Date Provider Diagnosis [facility] [place] [address] [place] [address] 05/06/2024 Milli Yost Other hammer toe(s) (acquired), [...] Topical: bacitacin applied Removal of: sutures performed [facility] sterile forceps/suture scissors or #15 blade, area cleaned with alcohol prior to removal Progress Notes * Mahin JORGE GDOB:[birth year] (68 yo M)Acc No.[id number]:05/06/2024 Progress Notes Patient:?Mahin Jorge Madan Provider:?Milli Yost DPM :1955???Age:68 Y???Sex:Male Max e:05/06/2024 [facility] Pcp:Blue Acosta MD Subjective: * Chief [...] with alcohol prior to removal.? * Procedure Codes:?26655 X-RAY EXAM OF LEFT FOOT 3V, Modifiers: [...] Yost DPM Date:? Generated for Navjot mccall/Janay/Tanoitting on:?01/30/2025 12:38 PM EDT History and Physical Notes * [...]
== END 2025-01-30 12:33 | disposition home or self-care (01) ==
LOC: HO.HKA 11:32
PROVIDERS: PCP Internal Medicine; Visit Provider Internal Medicine Nephrology
DX: N28.1 Cyst of kidney, acquired (principal); I10 Essential (primary) hypertension
CPT/HCPCS: 99204

== ENCOUNTER → 2025-01-30 11:31 | Outpatient (BNVA) | payer MEDICARE, OTHER, SELFPAY | PROVIDERS: PCP Internal Medicine; Visit Provider Internal Medicine Nephrology | DX: N28.1 Cyst of kidney, acquired (principal); I10 Essential (primary) hypertension | CPT/HCPCS: 99202 ==

== ENCOUNTER 2025-02-03 08:29 | Outpatient (AMB) | payer MEDICARE, OTHER, SELFPAY ==
--- NOTE | 2025-02-03 08:47 | A.OFFVIS_ITS ---
Vital Signs 02/03/25 08:49 Height 6 ft 3 in Weight 334 lb 3.532 oz BMI 41.8 BP 122/70 Blood Pressure Location Lt radial Position Sitting Pulse 65 Pulse Source Monitor Intake Visit Reasons: 1yr w/ekg echo,precolonscopy with stopping eliquis Intake Note: 1 yr f/up-echo precolonoscopy with stopping eliquist Latin Teacher Required: No Accompanied by: Self / Same As Patient Allergies grass pollen-nisha, standard [Grass Pollen-Nisha,Std] Allergy (Mild, Verified 01/30/25 12:05) Unknown pollen extracts [POLLEN] Allergy (Mild, Verified 01/30/25 12:05) Unknown zolpidem [Ambien] Allergy (Unknown, Verified 01/30/25 12:05) Unknown house dust Allergy (Verified 01/30/25 12:05) Unknown environmental allergies Adverse Reaction (Verified 01/30/25 12:05) Sinus Inflammation Medication List - Last Reconciled 02/03/25 by Lucas Chris MD atorvastatin 20 mg PO DAILY celecoxib (Celebrex) 200 mg PO DAILY chair, wheel (Wheel chair) As directed chair, wheel (Wheel chair) As directed docusate sodium (Colace) 100 mg PO DAILY flecainide 100 mg PO Q12H gabapentin 600 mg PO BEDTIME lisinopril 20 mg PO DAILY metoprolol succinate ER 50 mg PO DAILY multivitamin 1 tab PO DAILY rivaroxaban (Xarelto) 20 mg PO QPM tramadol 50 mg PO BEDTIME PRN triamcinolone acetonide 0.5% appl topical HPI Comments Details: Mahin comes for follow-up. Overall he has been doing well from cardiac perspective. He has had no recurrent episodes of atrial fibrillation. No bleeding issues or neurologic events. No prolonged palpitation irregular heartbeat. He also denies any symptoms exertional chest pain. Also denies any symptoms of heart failure. With no orthopnea, PND, leg edema. Said he has been losing weight but then hurt his back and is currently not exercising. Blood pressure has been well controlled as per him. [facility] Medical History Bleeding hemorrhoids HTN (hypertension) Acute knee pain PAF (paroxysmal atrial fibrillation) Surgical History Hx of foot surgery History of tonsillectomy and adenoidectomy History of deviated nasal septum Hx of cholecystectomy History of mandibular surgery Family History Father CVD (cardiovascular disease) Mother No problems noted. Social History Alcohol intake: never Patient Tobacco Use Status: Never used Tobacco Current occupational status: retired Review of Systems Const Denies chills, Denies fatigue, Denies fever(s), Denies frequent falls, Denies weakness, Denies weight gain and Denies weight loss ENT Denies dizziness Card Denies chest pain, Denies leg edema, Denies lightheadedness, Denies palpitations, Denies dyspnea and Denies dyspnea on exertion Resp Denies cough, Denies dyspnea and Denies dyspnea on exertion GI Denies hematochezia Musc Denies abnormal gait, Denies muscle weakness, Denies numbness, Denies radiating pain into limb and Denies tingling Neuro Denies abnormal gait, Denies dizziness, Denies frequent falls, Denies numbness, Denies tingling and Denies weakness Endo Denies fatigue and Denies palpitations Physical Exam Vital Signs: Last Vital Signs Pulse 65 02/03/25 08:49 BP 122/70 02/03/25 08:49 BMI result Body Mass Index 41.8 Const General: cooperative, healthy appearing, no acute distress, alert and awake Orientation/consciousness: patient oriented x3 Neck Neck: Yes normal visual inspection and Yes no JVD Carotids: carotid upstroke abnormal Resp Effort & Inspection: normal respiratory effort, able to speak in complete sentences and not labored Auscultation: clear to auscultation bilaterally, no crackles, no rales, no rhonchi and no wheezes Cardio Rate: regular rate Rhythm: regular rhythm Heart sounds: S1 normal heart sound present and S2 normal heart sound present Peripheral pulses: Peripheral pulses 2+ throughout GI Inspection: Yes normal to inspection Neuro General: patient oriented x3 Extrem General: Yes normal to inspection and No edema Office Procedures EKG Details: EKG shows normal sinus rhythm with LVH with QRS widening, unchanged from before. 87526-Yyqloopgyyszeuizz, Complete Assessment & Plan Assessment & Plan (1) PAF (paroxysmal atrial fibrillation): Code(s): I48.0 - Paroxysmal atrial fibrillation Category: Medical Plan: Highly symptomatic paroxysmal atrial fibrillation which has remained suppressed on current flecainide therapy. Continue the same. Continue concomitant metoprolol therapy to prevent rapid atrial flutter. Discussed with him about management. Understands agrees. Continue full oral anticoagulation, currently on Xarelto 20 mg daily. Semi annual renal function test should be pursued. Management of atrial fibrillation discussed in details. Continue aggressive blood pressure control. Continue participate in weight loss program. (2) Diastolic dysfunction: Code(s): I51.89 - Other ill-defined heart diseases Category: Medical Plan: Diastolic dysfunction most likely related to longstanding hypertension as well as obesity. Clinically no signs or symptoms of heart failure. These were discussed. Continue aggressive blood pressure control. Continue rhythm control approach. Continue participate in weight loss program. He was working on it. (3) HTN (hypertension): Code(s): I10 - Essential (primary) hypertension Category: Medical Plan: Hypertension which is currently well optimized advised to monitor blood pressure at home maintain a log. Goal blood pressure less than 130/84. Low-salt diet was discussed. Importance of compliance with medication was discussed and he understands agrees. (4) Preoperative cardiovascular examination: Code(s): Z01.810 - Encounter for preprocedural cardiovascular examination Plan: Preoperative cardiovascular risk stratification for colonoscopy. This is considered low risk procedure. From cardiac perspective is currently well optimized to undergo this procedure with low risk for perioperative cardiovascular morbidity mortality. Xarelto can be withheld 3 days prior to the procedure and resumed as soon as possible after the procedure with associated thromboembolic risk. Will follow up in the clinic in 6 months for EKG in 1 year with me. Thank you for allowing me to partake in his care Coding Level of Care Code Est Pt Level 4 (11876) Complex EM visit Add On G2211 Diagnoses PAF (paroxysmal atrial fibrillation) I48.0 Diastolic dysfunction I51.89 HTN (hypertension) I10 Preoperative cardiovascular examination Z01.810 CPT Codes EKG - CPT: 53284-Hmegafkrhwsmsnnxu, Complete ([id number])
[2025-02-03 08:49] VITALS: BP 122/70; PULSE 65; BMI 41.8
--- OUTSIDE RECORDS SUMMARY | 2025-02-03 08:51 | XMS_ITS | Patient Health Record ---
Author Organization [facility] Address [address] [place] [address] Care Team Providers Care Transition Assistant Name Role Phone Blue Acosta MD Primary Care Provider Corby Michel [phone] Allergies Allergen (clinical drug ingredient) Drug/Non Drug [...] Problem Status W/U Status Risk Notes Problem 776614643 Encounter for screening for malignant neoplasm of colon (Z12.11) Active confirmed Problem 240032055 History of adenomatous polyp of colon (Z86.010) Active confirmed Problem Constipation (55237751) Constipation (K59.00) Active confirmed Problem Abdominal bloating (709485530) Abdominal bloating (R14.0) Active confirmed Problem 042330267370228 Preprocedural examination (Z01.818) Active confirmed Problem 937836795 Long-term use of aspirin therapy (Z79.82) Active confirmed Problem Chronic constipation (397767208) Constipation, chronic (K59.00) Active confirmed Problem Benign neoplasm of colon (51695187) Serrated adenoma of colon (D12.6) Active confirmed Problem Serrated polyp of colon (670705646) Serrated polyp of colon (K63.5) Active confirmed Vital Signs Blood pressure diastolic 11 mm Hg 12/11/2024 Height 74 in 12/11/2024 Blood pressure systolic 111 mm Hg 12/11/2024 Weight 337 lbs 12/11/2024 BMI 43.26 kg/m2 12/11/2024 Procedures Procedure Date Ordered Date Performed Result Body Sit e COLONOSCOPY 12/11/2024 N/A Encounters Encounter Location Date Provider Diagnosis [facility] [address] [place] [address] 12/11/2024 Corby Sanchez History of adenomato us [...] Name:Corby Sanchez , 03/20/2025 09:30:00 AM, [address] [facility] , [place], [place], [phone], Insurance Providers Payer Name Payer Address Payer Phone Subscriber Number Group Number Insured Name Patient Relationship to Insured Coverage Start Date Coverage End Date MEDICARE OF [place] [address] [facility] [place] [address] [id number] KYRIE JORGE Self - patient is the insured [employer] ([employer]) [address] [place] [address] [id number] KYRIE JORGE Self - patient is the insured Medical (General) History Medical History History ICD Code Colonoscopy 12/29/2005-negati ve for polyps; colonoscopy in 04/2012 with a tiny serrated adenoma of the cecum, diverticulosis, and internal hemorrhoids ERCP for choledocholithiasis in 06/2005 Duodenal ulcers in 2004 Denies NM,DM,CVA,Lung disease,renal dise ase HTN Sleep apnea--uses a [...]
--- OUTSIDE RECORDS SUMMARY | 2025-02-03 08:51 | XMS_ITS ---
Author [facility] Address [address] [place] [address] Care Team Providers Care Supervisor Industrial Arts Education Name Role Phone Blue Acosta MD Primary Care Provider Milli Jimenez Unavailable [phone] Allergies Allergen (clinical drug ingredient) Drug/Non Drug [...] 024 Encounters Encounter Location Date Provider Diagnosis [facility] [place] [address] [place] [address] 05/20/2024 Milli Yost Other hammer toe(s) (acquired), [...] Mahin JORGE GDOB:[birth year] (68 yo M)Acc No.[id number]:05/20/2024 PROGRESS NOTES Patient:?Mahin Jorge Madan Provider:?Milli Yost DPM :1955???Age:68 Y???Sex:Male Max e:05/20/2024 [place] [place] Pcp:Blue Acosta MD Subjective: * Chief [...] Yost DPM Date:?03/2024 Generated for Navjot mccall/Janay/Kristy on:?02/03/2025 08:50 AM EDT History and Physical Notes * [...]
--- OUTSIDE RECORDS SUMMARY | 2025-02-03 08:51 | XMS_ITS ---
Author Organization Blue Acosta MD Address [address] [place], [place] [phone] Care Team Providers Care Credit Analyst Name Role Phone Blue Acosta Primary Care Provider [phone] Allergies Allergen (clinical drug ingredient) Drug/Non Drug [...] Location Date Provider Diagnosis Blue Acosta MD [address] [place] [address] [address] [place], [place] [phone] 01/09/2025 Blue Acosta Pleural effusion J90 ; [...] testing, THE ORDER HAS BEEN FAXED TO [facility] FOR SCHEDULING 01/09/2025 Foot drop, left (ICD-10 [...] testing, THE ORDER HAS BEEN FAXED TO [facility] FOR SCHEDULING Foot drop, [...] 07:00:00 AM, [address], [address], [place], [place], [phone], Provider Name:Blue Arcehiga ier, 07/16/2025 08:00:00 AM, [address], [address], [place], [place], [phone], Progress Notes * Kyrie JORGE GDOB:[birth year] (69 yo M)Acc No.[id number]:01/09/2025 Progress Notes Patient:?Kyrie JORGE G Provider:?Blue Acosta MD :1955???Age:69 Y???Sex:Male Max e:01/09/2025 Address:[address] [place], [place] [phone] Subjective: * Chief Complaints: * ???6 MO [...] testing, THE ORDER HAS BEEN FAXED TO [facility] FOR SCHEDULING?? 3.?Foot drop, [...] MD Date:?0 01/09/2025 Generated for Printi ng/Favidyag/eTransmitting on:?02/03/2025 08:50 AM EDT History and Physical [...]
--- OUTSIDE RECORDS SUMMARY | 2025-02-03 08:51 | XMS_ITS ---
Author Organization Blue Acosta MD Address [address] [place] [address] [place] [phone] Care Team Providers Care Wheel And Caster Repairer Name Role Phone Blue Acosta Primary Care Provider REASON FOR VISIT Repeat CXR Encounters Encounter Location Date Provider Diagnosis Blue Acosta MD [address] [place] [id number] 01/13/2025 Blue Acosta Pleural effusion J90 Assessments [...] Details Provider Name:Blue garrido, 07/10/2025 07:00:00 AM, [address] [place] [address], [address], [phone], Provider Name:Blue garrido, 07/16/2025 08:00:00 AM, [address] [place] [address], [address], [phone], Progress Notes * Mahin AMBROCIO GDOB:[birth year] (69 yo M)Acc No.[id number]:01/13/2025 Patient:?Mahin AMBROCIO :1955???Age:69 Y???Sex:Male Address:[address] [place] [address] Subjective: * Chief Complaints: * ???Repeat CXR * Medical History:? * Surgical History:? * Hospitalization/Major Diagno stic Procedure:? * Medications:? Objective: * Vitals:? * Physical Examination:? Assessment: * Assessment: 1.?Pleural effusion - J90??? Plan: * Treatment: * Procedure Codes:? * true * Date:? Generated for Navjot mccall/Janay/eTransmitting on:?02/03/2025 08:51 AM EDT
--- OUTSIDE RECORDS SUMMARY | 2025-02-03 08:51 | XMS_ITS ---
Author [facility] Address [address] [place] [address] Care Team Providers Care Disease Intervention Specialist Name Role Phone Blue Acosta MD Primary Care Provider Milli Jimenez Unavailable [phone] Allergies Allergen (clinical drug ingredient) Drug/Non Drug [...] 024 Encounters Encounter Location Date Provider Diagnosis [facility] [place] [address] [place] [address] 04/29/2024 Milli Yost Other hammer toe(s) (acquired), [...] Mahin JORGE GDOB:[birth year] (68 yo M)Acc No.[id number]:04/29/2024 Progress Notes Patient:?Mahin Jorge Provider:?Milli Yost DPM :1955???Age:68 Y???Sex:Male Max e:04/29/2024 Address:[address] [place], [place] [address] Pcp:Blue Acosta MD Subjective: * Chief Complaints: [...] , a light compressive dressing.? * Procedure Codes:?14809 X-RAY EXAM OF LEFT FOOT 3V, Modifiers: [...] Yost DPM Date:? Generated for Navjot mccall/Janay/eTransmitting on:?02/03/2025 08:51 AM EDT History and Physical Notes * [...]
--- OUTSIDE RECORDS SUMMARY | 2025-02-03 08:52 | XMS_ITS ---
Author Organization Blue Acosta MD Address [address] [place] [phone] Care Team Providers Care Locomotive Supervisor Name Role Phone Blue Acosta Primary Care Provider [phone] REASON FOR VISIT MRI order Encounters Encounter Location Date Provider Diagnosis Blue Acosta MD [address] [place] [address] [address] [place], [place] [phone] 01/12/2025 Blue Acosta Plan Of Treatment Next Appt Details Provider Name:Blue Arechiga ier, 07/10/2025 07:00:00 AM, [address] [place] [address], Suite [facility], [place], [place], [phone], Provider Name:Blue Arechiga iebunny, 07/16/2025 08:00:00 AM, [address] [place] [address], [address] [place] [address], [phone], Progress Notes * Mahin JORGE GDOB:[birth year] (69 yo M)Acc No.[id number]:01/12/2025 Patient:?Mahin JORGE :1955???Age:69 Y???Sex:Male Address:[address] [place] [address] * true * Date:? Generated for Printi ng/Favidyag/eTransmitting on:?02/03/2025 08:52 AM EDT
--- OUTSIDE RECORDS SUMMARY | 2025-02-03 08:52 | XMS_ITS ---
Author Organization [facility] Address [address] [place] [address] Care Team Providers Care Equine Dentist Name Role Phone Blue Acosta MD Primary Care Provider Milli Jimenez Unavailable [phone] Allergies Allergen (clinical drug ingredient) Drug/Non Drug [...] 024 Encounters Encounter Location Date Provider Diagnosis [facility] [place] [address] [place] [address] 05/06/2024 Milli Yost Other hammer toe(s) (acquired), [...] Topical: bacitacin applied Removal of: sutures performed [facility] sterile forceps/suture scissors or #15 blade, area cleaned with alcohol prior to removal Progress Notes * Mahin JORGE GDOB:[birth year] (68 yo M)Acc No.[id number]:05/06/2024 Progress Notes Patient:?Mahin Jorge Madan Provider:?Milli Yost DPM :1955???Age:68 Y???Sex:Male Max e:05/06/2024 [facility] Pcp:Blue Acosta MD Subjective: [...] with alcohol prior to removal.? * Procedure Codes:?65128 X-RAY EXAM OF LEFT FOOT 3V, Modifiers: [...] Yost DPM Date:? Generated for Navjot mccall/Janay/Tanoitting on:?02/03/2025 08:52 AM EDT History and Physical Notes * [...]
--- OUTSIDE RECORDS SUMMARY | 2025-02-03 08:52 | XMS_ITS ---
Author Organization [facility] Address [address] [place] [address] Care Team Providers Care Passenger Agent Name Role Phone Blue Acosta MD Primary Care Provider Corby Michel [phone] Allergies Allergen (clinical drug ingredient) Drug/Non Drug [...] Risk Notes Problem Benign neoplasm of colon (97687074) Serrated adenoma of colon (D12.6) Active confirmed Problem Serrated polyp of colon (477421456) Serrated polyp of colon (K63.5) Active confirmed Vital Signs Blood pressure systolic 111 mm Hg 12/11/19 25 Blood pressure diastolic 11 mm Hg 025 Height 74 in 12/11/2024 Weight 337 lbs 12/11/2024 BMI 43.26 kg/m2 12/11/2024 Procedures Procedure Date Ordered Date Performed Result Body Sit e COLONOSCOPY 12/11/2024 N/A Encounters Encounter Location Date Provider Diagnosis [facility] [address] [place] [address] 12/11/2024 Corby Sanchez History of adenomato us [...] Name:Corby Yanick Sanchez , 03/20/2025 09:30:00 AM, [address] [place] [address] , [place], [place], [phone], Progress Notes * KYRIE JORGEOB:[birth year] (69 yo M)Acc No.[id number]:12/11/2024 Progress Notes Patient:?KYRIE JORGE Provider:?Corby Sanchez MD :1955???Age:69 Y???Sex:Male Max e:12/11/2024 Address:[address] [place] [address] Pcp:Blue Acosta MD Subjective: * Chief Complaints: [...] 2 days before the colonoscopy * Procedure Codes:?07876 DIAGN OSTIC [id number] COLORECTAL CA SCREEN DOC [id number] TOBACCO NON-UPTHH0857 BP SCR NOT PRFRM REC REASON [id number] RCMND FLW-UP 10 YRS DOCD * Preventive Medicine:? ??Counseling:?Care goal follow-up plan:?Above Normal BMI Follow-up?Giving encouragement to exercise,?BMI management provided?Yes.? * Follow Up:?prn * * Sign off status: Completed true * Provider:?Corby Sanchez MD Date:? 025 Generated for Navjot mccall/Janay/eTransmitting on:?02/03/2025 08:51 AM EDT
--- OUTSIDE RECORDS SUMMARY | 2025-02-03 08:52 | XMS_ITS | Patient Health Record ---
Author Organization [facility] Address [address] [place] [address] Care Team Providers Care Power Superintendent Name Role Phone Blue Acosta MD Primary Care Provider Milli Jimenez Unavailable [phone] Allergies Allergen (clinical drug ingredient) Drug/Non Drug [...] W/U Status Risk Notes Problem Tinea unguium (743157246) Tinea unguium (B35.1) Active confirmed Problem Acquired hammer toe of left foot (5354835709466152 ) Other hammer toe(s) (acquired), left foot (M20.42) Active confirmed Problem Localized, primary osteoarthritis of the ankle and/or foot (062477373) Arthritis of joint of lesser toe, left (M19.072) Active confirmed Problem Ischemic ulcer of left foot, 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) Active confirmed Response to treatment Vital Signs Blood pressure diastolic 58 mm Hg 05/20/2024 Height 6ft3in in 05/20/2024 Blood pressure systolic 122 mm Hg 05/20/2024 Weight 315 lbs 05/20/2024 BMI 39.37 kg/m2 05/20/2024 Encounters Encounter Location Date Provider Diagnosis [facility] [address] [place] [address] 04/23/2024 Milli Schulza [facility] [address] [place] [address] 04/10/2024 Milli Per[place] Pain in left toe(s) M79.675 ; Other hammer toe(s) (acquired), left foot M20.42 and Exostosis of toe M89.8X7 [address] [address] 04/29/2024 Milli Perica Other hammer toe(s) (acquired), left foot M20.42 and Exostosis of toe M89.8X7 [address] [address] 05/06/2024 Milli Perica Other hammer toe(s) (acquired), left foot M20.42 and Exostosis of toe M89.8X7 [address] [address] 05/20/2024 Milli Perica Other hammer toe(s) (acquired), left foot M20.42 and Exostosis of toe M89.8X7 [address] [address] 04/23/2024 Milli Perica [address] [address] 04/24/2024 Milli Yost Assessments Encounter Date Diagnosis [...] X ray : Foot, left 3V 05/06/2024 51859-LUSIGFT NAIL, 1-5 08/17/2023 78953-LXSFBNZ NAIL, 1-5 03/31/2016 70376- Debride <25 sq cm 09/02/2013 30601- Debride <25 sq cm 08/17/2023 42972-WATCJHQ SKIN/TISSUE 07/07/2013 69630-QUFOUDC SKIN/TISSUE 07/22/2013 64309-IBEFNRM SKIN/TISSUE 08/12/2013 Insurance Providers Payer Name Payer Address Payer Phone Subscriber Number Group Number Insured Name Patient Relationship to Insured Coverage Start Date Coverage End Date Medicare National [employer] [address] [place] [address] [id number] Mahin Ha Self - patient is the insured [employer] (Is That [employer]) [address] [place] [address] [phone] [id number] Mahin Ha Self - patient is [...]
--- OUTSIDE RECORDS SUMMARY | 2025-02-03 08:52 | XMS_ITS | Patient Health Record ---
Author Organization Blue Acosta MD Address [address] [place], [place] [id number] Care Team Providers Care Global Expansion Sales Director Name Role Phone Blue Acosta Primary Care Provider [phone] Allergies Allergen (clinical drug ingredient) Drug/Non Drug Allergy documented on EMR Reaction Allergy Type Onset Date Status zolpidem ambien (uncoded) hallucinations Allergy Active amoxil (uncoded) rash Allergy Act dick Results Component Value Reference Range Notes Complete Blood Count Auto Di ff Reviewed date:03/27/2024 12:20:52 PM Interpretation: Performing Lab:[facility], [address] [place] [phone] Notes/Report: White Blood Count 8.7 4.8-10.8 X10*3/uL [...] Panel Reviewed date:03/27/2024 12:20:24 PM Interpretation: Performing Lab:[facility], [address] [place] [phone] Notes/Report: Sodium 139 135-145 mmol/L Potassium 4.4 3.3-5.1 mmol/L Chloride 103 96-108 mmol/L Carbon Dioxide 28 22-29 mmol/L Anion Gap 12 12-20 Blood Urea Nitrogen 18 9-16 mg/dL Creatinine 0.95 0.5-1.4 mg/dL Estimated Glomerular Filt Rate > 60 NOTE: For -Bahraini individuals, multiply the result by 1.210. Chronic Kidney Disease: Estimated GFR < 60 mL/min/1.73m2 Severe Kidney Disease: Estimated GFR < 15 mL/min/1.73m2 Glucose Random 128 60-115 mg/dL Calcium 9.6 8.4-10.2 mg/dL Hemoglobin A1c Reviewed date:03/27/2024 12:04:26 PM Interpretation: Performing Lab:[facility], [address] [place] [phone] Notes/Report: Hemoglobin A1c % 5.8 <6.0 % [...] average glucose, using the formula of the N0R-Xtpxhvv Average Glucose study (ADAG), Diabetes Care, Vol.31,#8, 2007 Complete Blood Count Auto Di ff Reviewed date:07/03/2024 05:03:13 PM Interpretation: Performing Lab:[facility], [address] [place] [phone] Notes/Report: White Blood Count 8.5 4.8-10.8 X10*3/uL [...] NRBC Abs Auto 0.000 0.0-0.012 X10*3/uL Comprehensive [place]. Panel Fa st Reviewed date:07/03/2024 12:20:41 PM Interpretation: Performing Lab:[facility], [address] [place] [phone] Notes/Report: Sodium 140 135-145 mmol/L Potassium 4.2 3.3-5.1 mmol/L Chloride 105 96-108 mmol/L Carbon Dioxide 28 22-29 mmol/L Anion Gap 11 12-20 Blood Urea Nitrogen 16 9-16 mg/dL Creatinine 0.91 0.5-1.4 mg/dL Estimated Glomerular Filt Rate > 60 NOTE: For -Bahraini individuals, multiply the result by 1.210. Chronic [...] Panel Reviewed date:07/03/2024 12:16:21 PM Interpretation: Performing Lab:[facility], [address] [place] [phone] Notes/Report: Triglycerides 103 <150 mg/dL Desirable Triglyceride: [...] (Free>4and<10) Reviewed date:07/03/2024 12:17:59 PM Interpretation: Performing Lab:[facility], [address] [place] [phone] Notes/Report: PSA,Total (Free>4and<10) 0.31 0.00-4.00 ng/mL A [...] Random Reviewed date:07/03/2024 12:30:42 PM Interpretation: Performing Lab:[address] [address] Notes/Report: Creatinine Urine 52.54 Microalbumin Urine < 5.0 Microalbum/Creatinine Ratio Ur TNP <30 ug/mg cr Unable to calculate albumin/creatinine ratio due to low microalbumin or creatinine result. Hemoglobin A1c Reviewed date:07/03/2024 12:16:31 PM Interpretation: Performing Lab:[address] [address] Notes/Report: Hemoglobin A1c % 5.6 <6.0 % [...] average glucose, using the formula of the J0K-Oepdexe Average Glucose study (ADAG), Diabetes Care, Vol.31,#8, May. 2007 UA ClnCatch+Micro w/rflx Cul t Reviewed date:07/03/2024 12:27:43 PM Interpretation: Performing Lab:[address] [address] Notes/Report: Urine, Clean Catch Color Urine Yellow Appearance Urine Clear PH 5.5 5.0-9.0 Glucose Urine UA Negative Negative mg/dL Urine Blood Negative Negative Specific Bracey - Urine 1.010 1.005-1.025 Urine Protein Negative Neg-Trace mg/dL Urine Ketones Negative Negative mg/dL Nitrite Urine Negative Negative Leukocyte Esterase Urine Negative Negative RBC Urine 0-2 0-2 /HPF WBC Urine 0-5 0-5 /HPF Squamous Epithelial Cell Urine 0-2 0-2 /HPF Bacteria Urine None Seen None Seen Hyaline Casts Urine 0-2 0-2 /LPF Liver Panel Reviewed date:01/02/2025 12:30:46 PM Interpretation: Performing Lab:[address] [address] Notes/Report: Bilirubin Total 0.6 0.0-1.0 mg/dL Bilirubin Direct 0.3 0.0-0.5 mg/dL Aspartate Amino Transferase 29 5-37 U/L Alanine Aminotransferase 22 0-40 U/L Total Protein 7.6 6.5-8.0 g/dL Albumin Level 3.9 3.5-5.0 g/dL Alkaline Phosphatase 80 39-117 U/L Glucose Fasting Reviewed date:01/02/2025 12:30:54 PM Interpretation: Performing Lab:[address] [address] Notes/Report: Glucose Fasting 118 60-99 mg/dL A fasting glucose from 100-125 mg/dl is considered impaired (pre-diabetes). Lipid Panel with Reflex Reviewed date:01/02/2025 12:31:05 PM Interpretation: Performing Lab:[address] [address] Notes/Report: Triglycerides 118 <150 mg/dL Desirable Triglyceride: [...] A1c Reviewed date:01/03/2025 06:16:13 PM Interpretation: Performing Lab:[facility], [address] [place] [phone] Notes/Report: Hemoglobin A1c % 5.6 <6.0 % [...] average glucose, using the formula of the L6M-Mzqqtnd Average Glucose study (ADAG), Diabetes Care, Vol.31,#8, May. 2007 Electrocardiogram (EKG) Reviewed date:04/11/2024 08:01:33 AM Interpretation: Performing Lab: Notes/Report: Johnie Milner Reviewed date:03/27/2024 11:56:17 AM Interpretation: Performing Lab:[facility], [address] [place] [phone] Notes/Report: Johnie Milner See Note Specimen held untested for 24 hours; Call to request Chemistry testing. Johnie Milner Reviewed date:01/02/2025 12:23:00 PM Interpretation: Performing Lab:[facility], [address] [place] [phone] Notes/Report: Johnie Milner See Note Specimen held untested for 24 hours; Call to request Chemistry testing. Complete Blood Count Auto Di ff Reviewed date:01/06/2025 08:02:47 PM Interpretation: Performing Lab:[facility], [address] [place] [phone] Notes/Report: White Blood Count 12.8 4.8-10.8 X10*3/uL [...] Panel Reviewed date:01/06/2025 08:04:15 PM Interpretation: Performing Lab:[facility], [address] [place] [phone] Notes/Report: Sodium 140 135-145 mmol/L Potassium 4.1 [...] Magnesium Reviewed date:01/06/2025 07:58:26 PM Interpretation: Performing Lab:[address] [address] Notes/Report: Magnesium 1.8 1.6-2.6 mg/dL Lipase Reviewed date:01/06/2025 07:58:34 PM Interpretation: Performing Lab:[facility], [address] [place] [phone] Notes/Report: Lipase 23 8-78 U/L CT NG by PCR Reviewed date:01/07/2025 02:59:49 PM Interpretation: Performing Lab:[address] [address] Notes/Report: Urine CT PCR NOT DETECTED Not [...] Cult Reviewed date:01/08/2025 04:41:34 PM Interpretation: Performing Lab:[facility], [address] [place] [phone] Notes/Report: Urine, Clean Catch Color Urine Yellow Appearance Urine Clear PH 5.5 5.0-9.0 Glucose Urine UA Negative Negative mg/dL Urine Blood Negative Negative Specific Bracey - Urine 1.015 1.005-1.025 Urine Protein Negative Neg-Trace mg/dL Urine Ketones Negative Negative mg/dL Nitrite Urine Negative Negative Leukocyte Esterase Urine Negative Negative CT abdomen pelvis wo con Reviewed date:01/06/2025 08:03:52 PM Interpretation: Performing Lab: Notes/Report: [address] [address] [address] Scan Report Signed Patient: Mahin Ambrocio MR#: [id number] 045 : 1955 Acct:[id number] Age/Sex: 69 / M ADM Date: 01/06/25 Loc: HO.ED Attending Dr: Ordering Physician: Cristina Birmingham Date of Service: 01/06/25 Procedure(s): CT abdomen pelvis wo IV con Accession Number(s): [id number] cc: Blue Acosta MD; Cristina Birmingham Report Number: [id number]: Total DLP = 1401.00 mGy-cm EXAMINATION: CT [...] 01/06/25 1414 DD/ 1310 TD/TT: 01/06/25 1402 Elevator Constructor Helper: [address] [address] [address] Scan Report Signed Patient: Ziyad Ambrocio in G MR#: [id number] 045 : 1955 Acct:[id number] Age/Sex: 69 / M ADM Date: 01/06/25 Loc: HO.ED Attending Dr: Ordering Physician: Cristina Birmingham Date of Service: 01/06/25 Procedure(s): CT abd omen pelvis wo IV con Accession Number(s): [id number] cc: Blue Acosta MD; Cristina Birmingham Report Number: [id number]: Total DLP = 1401.00 mGy-cm EXAMINATION: CT [...] 01/06/25 1414 DD/ 1310 TD/TT: 01/06/25 1402 Elevator Constructor Helper: US scrotum Reviewed date:01/07/2025 03:00:25 PM Interpretation: Performing Lab: Notes/Report: [address] [address] Ultrasound Report Signed Patient: Mahin Ambrocio MR#: [id number] 045 : 1955 Acct:[id number] Age/Sex: 69 / M ADM Date: 01/06/25 Loc: HO.ED Attending Dr: Ordering Physician: Omid Lopez MD Date of Service: 01/06/25 Procedure(s): US scrotum Accession Number(s): [id number] cc: Blue Acosta MD; Omid Lopez MD CLINICAL HISTORY: L testicular pain. Ultrasound scrotum. COMPARISON: None Technique: Real time sonographic imaging, including color-flow imaging, was performed by the wire coiler machine operator. Multiple client representative static images were saved for review. [...] OV> 01/07/25 0804 DD/ 15 TD/TT: 01/06/251815 Elevator Constructor Helper: [place] [address] Ultrasound Report Signed Patient: Ziyad Ambrocio MR#: [id number] 045 : 1955 Acct:[id number] Age/Sex: 69 / M ADM Date: 01/06/25 Loc: HO.ED Attending Dr: Ordering Physician: Omid Lopez MD Date of Service: 01/06/25 Procedure(s): US scrotum Accession Number(s): [id number] cc: Blue Acosta MD; Omid Lopez MD CLINICAL HISTORY: L testicular pain. Ultrasound scrotum. COMPARISON: None Technique: Real time sonographic imaging, including color-flow imaging, was performed by the wire coiler machine operator. Multiple client representative static images were saved for review. [...] OV> 01/07/25 0804 DD/ 15 TD/TT: 01/06/251815 Elevator Constructor Helper: US scrotum doppler Reviewed date:01/06/2025 08:04:52 PM Interpretation: Performing Lab: Notes/Report: [place] [address] Ultrasound Report Signed Patient: Mahin Ambrocio MR#: [id number] 045 : 1955 Acct:[id number] Age/Sex: 69 / M ADM Date: 01/06/25 Loc: HO.ED Attending Dr: Ordering Physician: Louise Callejas Date of Service: 01/06/25 Procedure(s): US scrotum doppler Accession Number(s): [id number] cc: Blue Acosta MD; Louise Callejas CLINICAL HISTORY: L testicular pain. Ultrasound scrotum. COMPARISON: None Technique: Real time sonographic imaging, including color-flow imaging, was performed by the wire coiler machine operator. Multiple client representative static images were saved for review. [...] in OV> 01/06/251815 DD/ 15 TD/TT: 01/06/251815 Elevator Constructor Helper: [place] [address] Ultrasound Report Signed Patient: Ziyad Ambrocio MR#: [id number] 045 : 1955 Acct:[id number] Age/Sex: 69 / M ADM Date: 01/06/25 Loc: HO.ED Attending Dr: Ordering Physician: Louise Callejas Date of Service: 01/06/25 Procedure(s): US scr otum doppler Accession Number(s): [id number] cc: Blue Acosta MD; Louise Callejas CLINICAL HISTORY: L testicular pain. Ultrasound scrotum. COMPARISON: None Technique: Real time sonographic imaging, including color-flow imaging, was performed by the wire coiler machine operator. Multiple client representative static images were saved for review. [...] OV> 01/06/25 1816 DD/ 15 TD/TT: 01/06/251815 Elevator Constructor Helper: XR chest 2V Reviewed date:01/13/2025 02:56:25 PM Interpretation: Performing Lab: Notes/Report: [address] [address] XRay Report Signed Patient: Mahin Ambrocio MR#: [id number] 045 : 1955 Acct:[id number] Age/Sex: 69 / M ADM Date: 01/09/25 Loc: HO.XRAY Attending Dr: Blue Acosta MD Ordering Physician: Blue Acosta MD Date of Service: 01/09/25 Procedure(s): XR chest 2V Accession Number(s): [id number] cc: Blue Acosta MD EXAMINATION: XR CHEST [...] 01/09/25 1059 DD/ 1000 TD/TT: 01/09/25 1010 Elevator Constructor Helper: [address] [address] XRay Report Signed Patient: Ziyad Ambrocio MR#: [id number] 045 : 1955 Acct:[id number] Age/Sex: 69 / M ADM Date: 01/09/25 Loc: HO.XRAY Attending Dr: Blue Acosta MD Ordering Physician: Blue Acosta MD Date of Service: 01/09/25 Procedure(s): XR isaias st 2V Accession Number(s): [id number] cc: Blue Acosta MD EXAMINATION: XR CHEST [...] 01/09/25 1059 DD/ 1000 TD/TT: 01/09/25 1010 Elevator Constructor Helper: Reason For Referral No Information Medications Medication [...] Administered pt was given the vaccine at [facility] on [facility]. Fluarix Quadrivalent IM Intramuscular 06/24/2018 Administe red [...] Problem Status W/U Status Risk Notes Problem 623755220 Diverticulitis (K57.92) Active confirmed Problem 389553919 Mixed hyperlipidemia (E78.2) Active confirmed Problem 683863311 Paroxysmal atria l fibrillation (I48.0) Active confirmed Problem 95332197 Atherosclerosis of aorta (I70.0) Active confirmed Problem 53799105909805714 Acute recurren t frontal sinusitis (J01.11) Active confirmed Problem 238166166 Angina effort (I20.8) Active confirmed Problem 583535776 Lumbar disc disease (M51.9) Active confirmed Problem 392362322 Tubular adenoma of colon (D12.6) Active confirmed Problem 62112041 Essential hypertension (I10) Active confirmed Problem 8142831 Prediabetes (R73.09) Active confirmed Problem 084656251 Morbid obesity d ue to excess calories (E66.01) Active confirmed Problem 081421256 Cervical disc disease (M50.90) Active confirmed Problem 011794263 Hammertoe of lef t foot (M20.42) Active [...] Date Provider Diagnosis Blue Acosta MD [address] [place] [id number] 03/27/2024 Blue Acosta Essential hypertensi on I10 ; Prediabetes R73.09 and Preoperative clearance Z01.818 Blue Acosta MD [address] [place] [id number] 07/03/2024 Blue Acosta Mixed hyperlipidemia E78.2 ; Encounter for immunization Z23 ; Essential hypertension I10 and Prediabetes R73.09 Blue Acosta MD [address] [id number] 01/02/2025 Blue Acosta Mixed hyperlipidemia E78.2 and Prediabetes R73.09 Blue Acosta MD [address] [id number] 04/08/2024 Blue Acosta Pre-op evaluation Z01.818 and Hammertoe of left foot M20.42 Blue Acosta MD [address] [place] [id number] 07/10/2024 Blue Acosta Essential hypertensi on I10 ; Prediabetes R73.09 ; Morbid obesity due to excess calories E66.01 ; Guaiac positive stools R19.5 ; Mixed hyperlipidemia E78.2 ; Colon cancer screening Z12.11 ; Depression screening Z13.31 and Paroxysmal atrial fibrillation I48.0 Blue Acosta MD [address] [place] [id number] 01/09/2025 Blue Acosta Pleural effusion J90 ; Lumbar disc disease with radiculopathy M51.16 ; Foot drop, left M21.372 ; Prediabetes R73.09 and Mixed hyperlipidemia E78.2 Blue Acosta MD [address] [place] [id number] 04/11/2024 Blue Acosta MD [address] [place] [id number] 01/08/2025 Blue Acosta MD [address] [place] [id number] 01/12/2025 Blue Acosta MD [address] [place] [id number] 01/13/2025 Blue Acosta Pleural effusion J90 Assessments [...] Provider Name:Bluelaya Arechiga ier, 07/10/2025 07:00:00 AM, [address] [place] [address], [address], [id number], Provider Name:Blue Melania Geni ier, 07/16/2025 08:00:00 AM, [address] [place] [address], [address], [id number], Insurance Providers Payer Name Payer Address Payer Phone Subscriber Number Group Number Insured Name Patient Relationship to Insured Coverage Start Date Coverage End Date MEDICARE NHIC SOL [address] [place] [address] [id number] Mahin Ambrocio Self - patient is the insured [facility] [address] [place] [phone] [id number] Mahin Ambrocio Self - patient is the insured Medical (General) History Medical History History ICD Code colonoscopy 04/2012 for recta l bleeding due in 10 years; Colonoscopy done 10/27/[address] Sanchez - repeat 5 years
== END 2025-02-03 09:18 | disposition home or self-care (01) ==
PROVIDERS: PCP Internal Medicine; Visit Provider Internal Medicine Cardiovascular Disease
DX: I48.0 Paroxysmal atrial fibrillation (principal); I51.89 Other ill-defined heart diseases; I10 Essential (primary) hypertension; Z01.810 Encounter for preprocedural cardiovascular examination
CPT/HCPCS: 93010; 99214; G2211

== ENCOUNTER → 2025-02-03 08:29 | Outpatient (BNVA) | payer MEDICARE, OTHER, SELFPAY | PROVIDERS: PCP Internal Medicine; Visit Provider Internal Medicine Cardiovascular Disease | DX: Z01.810 Encounter for preprocedural cardiovascular examination (principal); I48.0 Paroxysmal atrial fibrillation; I51.89 Other ill-defined heart diseases; I10 Essential (primary) hypertension | CPT/HCPCS: 93005; 99212 ==

== ENCOUNTER 2025-02-16 13:28 | Outpatient (REF) | payer MEDICARE, OTHER, SELFPAY ==
--- NOTE | ~2025-02-16 | MR_ITS ---
CLINICAL HISTORY: N28.1 - Cyst of kidney, acquired MR abdomen with and without gadolinium Comparison: CT/ND/SR - CT ABDOMEN PELVIS WO IV CON - 01/06/25 13:10 EDT Findings: There are several benign nonenhancing cysts in the right kidney the largest is seen in the midpole measuring up to 3.4 cm in greatest diameter. There are no septations or solid components. One or 2 tiny cysts are seen in the left kidney. The patient is status post cholecystectomy. The rest of the solid organs are unremarkable. No ascites. The visualized bowel is within normal limits. Examination of the bones and soft tissues demonstrates a hemangioma within the L4 vertebral body. IMPRESSION: Benign renal cysts. Small hemangioma L4 vertebra. This document has been electronically signed by: Wilfrid Houston MD on 02/17/2025 13:09:58
[2025-02-16] MEDS: gadobutroL 10 ML VIAL IVPUSH (14:41)
--- OUTSIDE RECORDS SUMMARY | 2025-02-16 14:57 | XMS_ITS ---
Author Organization [facility] Address [address] [place] [address] Care Team Providers Care Strategic Advisor Name Role Phone Blue Acosta MD Primary Care Provider Milli Jimenez Unavailable [phone] Allergies Allergen (clinical drug ingredient) Drug/Non Drug [...] 024 Encounters Encounter Location Date Provider Diagnosis [facility] [place] [address] [place] [address] 04/29/2024 Milli Yost Other hammer toe(s) (acquired), [...] Mahin JORGE GDOB:[birth year] (68 yo M)Acc No.[id number]:04/29/2024 Progress Notes Patient:?Mahin Jorge Provider:?Milli Yost DPM :1955???Age:68 Y???Sex:Male Max e:04/29/2024 Address:[address] [place], [place] [address] Pcp:Blue Acosta MD Subjective: * Chief Complaints: [...] , a light compressive dressing.? * Procedure Codes:?80379 X-RAY EXAM OF LEFT FOOT 3V, Modifiers: [...] Yost DPM Date:? Generated for Navjot mccall/Janay/eTransmitting on:?02/16/2025 02:56 PM EDT History and Physical Notes * [...]
--- OUTSIDE RECORDS SUMMARY | 2025-02-16 14:57 | XMS_ITS ---
Author Organization Blue Acosta MD Address [address] [place] [phone] Care Team Providers Care Equal Opportunity Counselor Name Role Phone Blue Acosta Primary Care Provider REASON FOR VISIT MRI order Encounters Encounter Location Date Provider Diagnosis Blue Acosta MD [address] [place] [address] [address] [place], [place] [phone] 01/12/2025 Blue Acosta Plan Of Treatment Next Appt Details Provider Name:Blue Arechiga ier, 07/10/2025 07:00:00 AM, [address] [place] [address], Suite [facility], [place], [place], [phone], Provider Name:Blue Arechiga iebunny, 07/16/2025 08:00:00 AM, [address] [place] [address], [address] [place] [address], [phone], Progress Notes * Mahin JORGE GDOB:[birth year] (69 yo M)Acc No.[id number]:01/12/2025 Patient:?Mahin JORGE :1955???Age:69 Y???Sex:Male Address:[address] [place] [address] * true * Date:? Generated for Printi ng/Favidyag/eTransmitting on:?02/16/2025 02:57 PM EDT
--- OUTSIDE RECORDS SUMMARY | 2025-02-16 14:57 | XMS_ITS ---
Author Organization Blue Acosta MD Address [address] [place] [address] [place] [phone] Care Team Providers Care Incendiary Powder Mixer Name Role Phone Blue Acosta Primary Care Provider [phone] REASON FOR VISIT Repeat CXR Encounters Encounter Location Date Provider Diagnosis Blue Acosta MD [address] [place] [phone] 01/13/2025 Blue Acosta Pleural effusion J90 Assessments [...] Details Provider Name:Blue garrido, 07/10/2025 07:00:00 AM, [address] [place] [address], [address], [phone], Provider Name:Blue garrido, 07/16/2025 08:00:00 AM, [address] [place] [address], [address], [phone], Progress Notes * Mahin AMBROCIO GDOB:[birth year] (69 yo M)Acc No.[id number]:01/13/2025 Patient:?Mahin AMBROCIO :1955???Age:69 Y???Sex:Male Address:[address] [place] [address] Subjective: * Chief Complaints: * ???Repeat CXR * Medical History:? * Surgical History:? * Hospitalization/Major Diagno stic Procedure:? * Medications:? Objective: * Vitals:? * Physical Examination:? Assessment: * Assessment: 1.?Pleural effusion - J90??? Plan: * Treatment: * Procedure Codes:? * true * Date:? Generated for Navjot mccall/Janay/eTransmitting on:?02/16/2025 02:56 PM EDT
--- OUTSIDE RECORDS SUMMARY | 2025-02-16 14:57 | XMS_ITS ---
Author Organization Blue Acosta MD Address [address] [place], [place] [phone] Care Team Providers Care Interviewing Clerk Name Role Phone Blue Acosta Primary Care Provider [phone] Allergies Allergen (clinical drug ingredient) Drug/Non Drug [...] needed Sublingual every 15 min for pain. february repeat time 3 for 30 days 05/16/2012 [...] kg/m2 01/09/2025 weight is down 6 pounds [facility] e 07-10-24 Encounters Encounter Location Date Provider Diagnosis Blue Acosta MD [address] [place] [address] [address] [place], [place] [phone] 01/09/2025 Blue Acosta Pleural effusion J90 ; [...] testing, THE ORDER HAS BEEN FAXED TO [facility] FOR SCHEDULING 01/09/2025 Foot drop, left [...] testing, THE ORDER HAS BEEN FAXED TO [facility] FOR SCHEDULING Foot drop, left pending diagnostic [...] 07:00:00 AM, [address], [address], [place], [place], [phone], Provider Name:Blue Arechiga ier, 07/16/2025 08:00:00 AM, [address], [address], [place], [place], [phone], Progress Notes * Kyrie JORGE GDOB:[birth year] (69 yo M)Acc No.[id number]:01/09/2025 Progress Notes Patient:?Kyrie JORGE G Provider:?Blue Acosta MD :1955???Age:69 Y???Sex:Male Max e:01/09/2025 Address:[address] [place], [place] [phone] Subjective: * Chief Complaints: * ???6 MO [...] testing, THE ORDER HAS BEEN FAXED TO [facility] FOR SCHEDULING?? 3.?Foot drop, left?Imaging: MRI LUMBAR [...] MD Date:?0 01/09/2025 Generated for Printi ng/Favidyag/eTransmitting on:?02/16/2025 02:56 PM EDT History and Physical [...]
--- OUTSIDE RECORDS SUMMARY | 2025-02-16 14:57 | XMS_ITS ---
Author Organization [facility] Address [address] [place] [phone] Care Team Providers Care Garage Construction Equipment Mechanic Name Role Phone Blue Acosta MD Primary Care Provider Corby Michel [phone] Allergies Allergen (clinical drug ingredient) Drug/Non Drug [...] Problem Status W/U Status Risk Notes Problem Serrated adenoma of colon (D12.6) Active confirmed Problem Serrated polyp of colon (665912821) Serrated polyp of colon (K63.5) Active confirmed Vital Signs Blood pressure systolic 111 mm Hg 12/11/19 25 Blood pressure diastolic 11 mm Hg 025 Height 74 in 12/11/2024 Weight 337 lbs 12/11/2024 BMI 43.26 kg/m2 12/11/2024 Procedures Procedure Date Ordered Date Performed Result Body Sit e COLONOSCOPY 12/11/2024 N/A Encounters Encounter Location Date Provider Diagnosis [facility] [address] [facility] [address] [place] [address] 12/11/2024 Corby Sanchez History of adenomato us [...] Details Follow Up: prn, Reason: Provider Name:Corby Herndon Sanchez , 03/20/2025 09:30:00 AM, [address] [place] [address] , [place], [place], [phone], Progress Notes * KYRIE JORGE GDOB:[birth year] (69 yo M)Acc No.[id number]:12/11/2024 Progress Notes Patient:?KYRIE JORGE Provider:?Corby Sanchez MD :1955???Age:69 Y???Sex:Male Max e:12/11/2024 Address:[address] [place] [address] Pcp:Blue Acosta MD Subjective: * Chief Complaints: [...] 2 days before the colonoscopy * Procedure Codes:?23281 DIAGN OSTIC [id number] COLORECTAL CA SCREEN DOC [id number] TOBACCO NON-[id number] BP SCR NOT PRFRM REC REASON [id number] RCMND FLW-UP 10 YRS DOCD * Preventive Medicine:? ??Counseling:?Care goal follow-up plan:?Above Normal BMI Follow-up?Giving encouragement to exercise,?BMI management provided?Yes.? * Follow Up:?prn * * Sign off status: Completed true * Provider:?Corby Sanchez MD Date:? 025 Generated for Nvajot mccall/Janay/Kristy on:?02/16/2025 02:57 PM EDT
--- OUTSIDE RECORDS SUMMARY | 2025-02-16 14:57 | XMS_ITS | Patient Health Record ---
Author Organization [facility] [place] Address [address] [place] [address] Care Team Providers Care Laboratory Cureman Name Role Phone Blue Acosta MD Primary Care Provider Milli Jimenez Unavailable [phone] Allergies Allergen (clinical drug ingredient) Drug/Non Drug [...] W/U Status Risk Notes Problem Tinea unguium (034758411) Tinea unguium (B35.1) Active confirmed Problem Acquired hammer toe of left foot (1489744185507518 ) Other hammer toe(s) (acquired), left foot (M20.42) Active confirmed Problem Localized, primary osteoarthritis of the ankle and/or foot (350636036) Arthritis of joint of lesser toe, left (M19.072) Active confirmed Problem Ischemic ulcer of left foot, 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) Active confirmed Response to treatment Vital Signs Blood pressure diastolic 58 mm Hg 05/20/2024 Height 6ft3in in 05/20/2024 Blood pressure systolic 122 mm Hg 05/20/2024 Weight 315 lbs 05/20/2024 BMI 39.37 kg/m2 05/20/2024 Encounters Encounter Location Date Provider Diagnosis [facility] [address] [place] [address] 04/23/[address] [facility] [address] [place] [address] 04/10/2024 Milli Pericrenee Pain in left toe(s) M79.675 ; Other hammer toe(s) (acquired), left foot M20.42 and Exostosis of toe M89.8X7 [address] [address] 04/29/2024 Milli Perica Other hammer toe(s) (acquired), left foot M20.42 and Exostosis of toe M89.8X7 [address] [address] 05/06/2024 Milli Perica Other hammer toe(s) (acquired), left foot M20.42 and Exostosis of toe M89.8X7 [address] [address] 05/20/2024 Milli Perica Other hammer toe(s) (acquired), left foot M20.42 and Exostosis of toe M89.8X7 [address] [address] 04/23/2024 Milli Perica [address] [address] 04/24/2024 Milli Yost Assessments Encounter Date Diagnosis [...] X ray : Foot, left 3V 05/06/2024 43444-RKYFMNP NAIL, 1-5 08/17/2023 93668-AIBIIAQ NAIL, 1-5 03/31/2016 35951- Debride <25 sq cm 09/02/2013 33270- Debride <25 sq cm 08/17/2023 53759-XLRPFWO SKIN/TISSUE 07/07/2013 13789-JGMHTKB SKIN/TISSUE 07/22/2013 40250-RHEWCFO SKIN/TISSUE 08/12/2013 Insurance Providers Payer Name Payer Address Payer Phone Subscriber Number Group Number Insured Name Patient Relationship to Insured Coverage Start Date Coverage End Date Medicare National [employer]t [employer] [address] [place] [address] [id number] Mahin Ha Self - patient is the insured [employer] ([employer]) [address] [place] [address] [id number] Mahin Ha Self - patient is [...]
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
--- OUTSIDE RECORDS SUMMARY | 2025-02-16 14:57 | XMS_ITS ---
Author Organization [facility] Address [address] [place] [address] Care Team Providers Care Textile Machine Mechanic Name Role Phone Blue Acosta MD Primary Care Provider Milli Jimenez Unavailable [phone] Allergies Allergen (clinical drug ingredient) Drug/Non Drug [...] 024 Encounters Encounter Location Date Provider Diagnosis [facility] [place] [address] [place] [address] 05/20/2024 Milli Yost Other hammer toe(s) (acquired), [...] Mahin JORGE GDOB:[birth year] (68 yo M)Acc No.[id number]:05/20/2024 PROGRESS NOTES Patient:?Mahin Jorge Madan Provider:?Milli Yost DPM :1955???Age:68 Y???Sex:Male Max e:05/20/2024 [facility] [place] Pcp:Blue Acosta MD Subjective: * Chief [...] Yost DPM Date:?03/2024 Generated for Navjot mccall/Janay/Kristy on:?02/16/2025 02:56 PM EDT History and Physical [...]
--- OUTSIDE RECORDS SUMMARY | 2025-02-16 14:57 | XMS_ITS | Patient Health Record ---
Author Organization Blue Acosta MD Address [address] [place], [place] [address] Care Team Providers Care Electric Deicer Inspector Name Role Phone Blue Acosta Primary Care Provider Allergies Allergen (clinical drug ingredient) Drug/Non Drug Allergy documented on EMR Reaction Allergy Type Onset Date Status zolpidem ambien (uncoded) hallucinations Allergy Active amoxil (uncoded) rash Allergy Act dick Results Component Value Reference Range Notes Complete Blood Count Auto Di ff Reviewed date:03/27/2024 12:20:52 PM Interpretation: Performing Lab:[facility], [address] [place] [phone] Notes/Report: White Blood Count 8.7 4.8-10.8 X10*3/uL [...] Panel Reviewed date:03/27/2024 12:20:24 PM Interpretation: Performing Lab:[facility], [address] [place] [phone] Notes/Report: Sodium 139 135-145 mmol/L Potassium 4.4 3.3-5.1 mmol/L Chloride 103 96-108 mmol/L Carbon Dioxide 28 22-29 mmol/L Anion Gap 12 12-20 Blood Urea Nitrogen 18 9-16 mg/dL Creatinine 0.95 0.5-1.4 mg/dL Estimated Glomerular Filt Rate > 60 NOTE: For -Thai individuals, multiply the result by 1.210. Chronic Kidney Disease: Estimated GFR < 60 mL/min/1.73m2 Severe Kidney Disease: Estimated GFR < 15 mL/min/1.73m2 Glucose Random 128 60-115 mg/dL Calcium 9.6 8.4-10.2 mg/dL Hemoglobin A1c Reviewed date:03/27/2024 12:04:26 PM Interpretation: Performing Lab:[facility], [address] [place] [phone] Notes/Report: Hemoglobin A1c % 5.8 <6.0 % [...] average glucose, using the formula of the E6P-Dmhauol Average Glucose study (ADAG), Diabetes Care, Vol.31,#8, 2007 Complete Blood Count Auto Di ff Reviewed date:07/03/2024 05:03:13 PM Interpretation: Performing Lab:[facility], [address] [place] [phone] Notes/Report: White Blood Count 8.5 4.8-10.8 X10*3/uL [...] NRBC Abs Auto 0.000 0.0-0.012 X10*3/uL [facility]. Panel Fa st Reviewed date:07/03/2024 12:20:41 PM Interpretation: Performing Lab:[facility], [address] [place] [phone] Notes/Report: Sodium 140 135-145 mmol/L Potassium 4.2 3.3-5.1 mmol/L Chloride 105 96-108 mmol/L Carbon Dioxide 28 22-29 mmol/L Anion Gap 11 12-20 Blood Urea Nitrogen 16 9-16 mg/dL Creatinine 0.91 0.5-1.4 mg/dL Estimated Glomerular Filt Rate > 60 NOTE: For -Thai individuals, multiply the result by 1.210. Chronic [...] Panel Reviewed date:07/03/2024 12:16:21 PM Interpretation: Performing Lab:[facility], [address] [place] [phone] Notes/Report: Triglycerides 103 <150 mg/dL Desirable Triglyceride: [...] (Free>4and<10) Reviewed date:07/03/2024 12:17:59 PM Interpretation: Performing Lab:[facility], [address] [place] [phone] Notes/Report: PSA,Total (Free>4and<10) 0.31 0.00-4.00 ng/mL A [...] Random Reviewed date:07/03/2024 12:30:42 PM Interpretation: Performing Lab:[address] [address] Notes/Report: Creatinine Urine 52.54 Microalbumin Urine < 5.0 Microalbum/Creatinine Ratio Ur TNP <30 ug/mg cr Unable to calculate albumin/creatinine ratio due to low microalbumin or creatinine result. Hemoglobin A1c Reviewed date:07/03/2024 12:16:31 PM Interpretation: Performing Lab:[address] [address] Notes/Report: Hemoglobin A1c % 5.6 <6.0 % [...] average glucose, using the formula of the L6A-Fuzjulp Average Glucose study (ADAG), Diabetes Care, Vol.31,#8, May. 2007 UA ClnCatch+Micro w/rflx Cul t Reviewed date:07/03/2024 12:27:43 PM Interpretation: Performing Lab:[address] [address] Notes/Report: Urine, Clean Catch Color Urine Yellow Appearance Urine Clear PH 5.5 5.0-9.0 Glucose Urine UA Negative Negative mg/dL Urine Blood Negative Negative Specific [place] - Urine 1.010 1.005-1.025 Urine Protein Negative Neg-Trace mg/dL Urine Ketones Negative Negative mg/dL Nitrite Urine Negative Negative Leukocyte Esterase Urine Negative Negative RBC Urine 0-2 0-2 /HPF WBC Urine 0-5 0-5 /HPF Squamous Epithelial Cell Urine 0-2 0-2 /HPF Bacteria Urine None Seen None Seen Hyaline Casts Urine 0-2 0-2 /LPF Liver Panel Reviewed date:01/02/2025 12:30:46 PM Interpretation: Performing Lab:[address] [address] Notes/Report: Bilirubin Total 0.6 0.0-1.0 mg/dL Bilirubin Direct 0.3 0.0-0.5 mg/dL Aspartate Amino Transferase 29 5-37 U/L Alanine Aminotransferase 22 0-40 U/L Total Protein 7.6 6.5-8.0 g/dL Albumin Level 3.9 3.5-5.0 g/dL Alkaline Phosphatase 80 39-117 U/L Glucose Fasting Reviewed date:01/02/2025 12:30:54 PM Interpretation: Performing Lab:[address] [address] Notes/Report: Glucose Fasting 118 60-99 mg/dL A fasting glucose from 100-125 mg/dl is considered impaired (pre-diabetes). Lipid Panel with Reflex Reviewed date:01/02/2025 12:31:05 PM Interpretation: Performing Lab:[address] [address] Notes/Report: Triglycerides 118 <150 mg/dL Desirable Triglyceride: [...] A1c Reviewed date:01/03/2025 06:16:13 PM Interpretation: Performing Lab:[facility], [address] [place] [phone] Notes/Report: Hemoglobin A1c % 5.6 <6.0 % [...] average glucose, using the formula of the X8M-Spylpir Average Glucose study (ADAG), Diabetes Care, Vol.31,#8, May. 2007 Electrocardiogram (EKG) Reviewed date:04/11/2024 08:01:33 AM Interpretation: Performing Lab: Notes/Report: Johnie Milner Reviewed date:03/27/2024 11:56:17 AM Interpretation: Performing Lab:[facility], [address] [place] [phone] Notes/Report: Johnie Milner See Note Specimen held untested for 24 hours; Call to request Chemistry testing. Johnie Milner Reviewed date:01/02/2025 12:23:00 PM Interpretation: Performing Lab:[facility], [address] [place] [phone] Notes/Report: Johnie Milner See Note Specimen held untested for 24 hours; Call to request Chemistry testing. Complete Blood Count Auto Di ff Reviewed date:01/06/2025 08:02:47 PM Interpretation: Performing Lab:[facility], [address] [place] [phone] Notes/Report: White Blood Count 12.8 4.8-10.8 X10*3/uL [...] Panel Reviewed date:01/06/2025 08:04:15 PM Interpretation: Performing Lab:[facility], [address] [place] [phone] Notes/Report: Sodium 140 135-145 mmol/L Potassium 4.1 [...] Magnesium Reviewed date:01/06/2025 07:58:26 PM Interpretation: Performing Lab:[address] [address] Notes/Report: Magnesium 1.8 1.6-2.6 mg/dL Lipase Reviewed date:01/06/2025 07:58:34 PM Interpretation: Performing Lab:[facility], [address] [place] [phone] Notes/Report: Lipase 23 8-78 U/L CT NG by PCR Reviewed date:01/07/2025 02:59:49 PM Interpretation: Performing Lab:[address] [address] Notes/Report: Urine CT PCR NOT DETECTED Not [...] Cult Reviewed date:01/08/2025 04:41:34 PM Interpretation: Performing Lab:[facility], [address] [place] [phone] Notes/Report: Urine, Clean Catch Color Urine Yellow Appearance Urine Clear PH 5.5 5.0-9.0 Glucose Urine UA Negative Negative mg/dL Urine Blood Negative Negative Specific [place] - Urine 1.015 1.005-1.025 Urine Protein Negative Neg-Trace mg/dL Urine Ketones Negative Negative mg/dL Nitrite Urine Negative Negative Leukocyte Esterase Urine Negative Negative CT abdomen pelvis wo con Reviewed date:01/06/2025 08:03:52 PM Interpretation: Performing Lab: Notes/Report: [address] [address] [address] Scan Report Signed Patient: Mahin Ambrocio MR#: [id number] 045 : 1955 Acct:[id number] Age/Sex: 69 / M ADM Date: 01/06/25 Loc: HO.ED Attending Dr: Ordering Physician: Cristina Birmingham Date of Service: 01/06/25 Procedure(s): CT abdomen pelvis wo IV con Accession Number(s): [id number] cc: Blue Acosta MD; Cristina Birmingham Report Number: [id number]: Total DLP = 1401.00 mGy-cm EXAMINATION: CT [...] 01/06/25 1414 DD/ 1310 TD/TT: 01/06/25 1402 Public Health Analyst: [address] [address] [address] Scan Report Signed Patient: Ziyad Ambrocio in G MR#: [id number] 045 : 1955 Acct:[id number] Age/Sex: 69 / M ADM Date: 01/06/25 Loc: HO.ED Attending Dr: Ordering Physician: Cristina Birmingham Date of Service: 01/06/25 Procedure(s): CT abd omen pelvis wo IV con Accession Number(s): [id number] cc: Blue Acosta MD; Cristina Birmingham Report Number: [id number]: Total DLP = 1401.00 mGy-cm EXAMINATION: CT [...] 01/06/25 1414 DD/ 1310 TD/TT: 01/06/25 1402 Public Health Analyst: US scrotum Reviewed date:01/07/2025 03:00:25 PM Interpretation: Performing Lab: Notes/Report: [address] [address] Ultrasound Report Signed Patient: Mahin Ambrocio MR#: [id number] 045 : 1955 Acct:[id number] Age/Sex: 69 / M ADM Date: 01/06/25 Loc: HO.ED Attending Dr: Ordering Physician: Omid Lopez MD Date of Service: 01/06/25 Procedure(s): US scrotum Accession Number(s): [id number] cc: Blue Acosta MD; Omid Lopez MD CLINICAL HISTORY: L testicular pain. Ultrasound scrotum. COMPARISON: None Technique: Real time sonographic imaging, including color-flow imaging, was performed by the telephoner. Multiple sales utility representative static images were saved for review. [...] OV> 01/07/25 0804 DD/ 15 TD/TT: 01/06/251815 Public Health Analyst: [place] [address] Ultrasound Report Signed Patient: Ziyad Ambrocio MR#: [id number] 045 : 1955 Acct:[id number] Age/Sex: 69 / M ADM Date: 01/06/25 Loc: HO.ED Attending Dr: Ordering Physician: Omid Lopez MD Date of Service: 01/06/25 Procedure(s): US scrotum Accession Number(s): [id number] cc: Blue Acosta MD; Omid Lopez MD CLINICAL HISTORY: L testicular pain. Ultrasound scrotum. COMPARISON: None Technique: Real time sonographic imaging, including color-flow imaging, was performed by the telephoner. Multiple sales utility representative static images were saved for review. [...] OV> 01/07/25 0804 DD/ 15 TD/TT: 01/06/251815 Public Health Analyst: US scrotum doppler Reviewed date:01/06/2025 08:04:52 PM Interpretation: Performing Lab: Notes/Report: [place] [address] Ultrasound Report Signed Patient: Mahin Ambrocio MR#: [id number] 045 : 1955 Acct:[id number] Age/Sex: 69 / M ADM Date: 01/06/25 Loc: HO.ED Attending Dr: Ordering Physician: Louise Callejas Date of Service: 01/06/25 Procedure(s): US scrotum doppler Accession Number(s): [id number] cc: Blue Acosta MD; Louise Callejas CLINICAL HISTORY: L testicular pain. Ultrasound scrotum. COMPARISON: None Technique: Real time sonographic imaging, including color-flow imaging, was performed by the telephoner. Multiple sales utility representative static images were saved for review. [...] in OV> 01/06/251815 DD/ 15 TD/TT: 01/06/251815 Public Health Analyst: [place] [address] Ultrasound Report Signed Patient: Ziyad Ambrocio MR#: [id number] 045 : 1955 Acct:[id number] Age/Sex: 69 / M ADM Date: 01/06/25 Loc: HO.ED Attending Dr: Ordering Physician: Louise Callejas Date of Service: 01/06/25 Procedure(s): US scr otum doppler Accession Number(s): [id number] cc: Blue Acosta MD; Louise Callejas CLINICAL HISTORY: L testicular pain. Ultrasound scrotum. COMPARISON: None Technique: Real time sonographic imaging, including color-flow imaging, was performed by the telephoner. Multiple sales utility representative static images were saved for review. [...] OV> 01/06/25 1816 DD/ 15 TD/TT: 01/06/251815 Public Health Analyst: XR chest 2V Reviewed date:01/13/2025 02:56:25 PM Interpretation: Performing Lab: Notes/Report: [address] [address] XRay Report Signed Patient: Mahin Ambrocio MR#: [id number] 045 : 1955 Acct:[id number] Age/Sex: 69 / M ADM Date: 01/09/25 Loc: HO.XRAY Attending Dr: Blue Acosta MD Ordering Physician: Blue Acosta MD Date of Service: 01/09/25 Procedure(s): XR chest 2V Accession Number(s): [id number] cc: Blue Acosta MD EXAMINATION: XR CHEST [...] 01/09/25 1059 DD/ 1000 TD/TT: 01/09/25 1010 Public Health Analyst: [address] [address] XRay Report Signed Patient: Ziyad Ambrocio MR#: [id number] 045 : 1955 Acct:[id number] Age/Sex: 69 / M ADM Date: 01/09/25 Loc: HO.XRAY Attending Dr: Blue Acosta MD Ordering Physician: Blue Acosta MD Date of Service: 01/09/25 Procedure(s): XR [facility] st 2V Accession Number(s): [id number] cc: Blue Acosta MD EXAMINATION: XR CHEST [...] 01/09/25 1059 DD/ 1000 TD/TT: 01/09/25 1010 Public Health Analyst: Reason For Referral No Information Medications Medication SIG (Take, Route, Frequency, Duration) Notes Start Date End Date Status Xarelto 20 MG 1 tablet with food Orally Once a day Active Nitrostat 0.4 MG 1 tablet under the tongue and allow to dissolve as needed Sublingual every 15 min for pain. may repeat time 3 for 30 days 05/16/2012 Not-Taking Lisinopril 20 MG TAKE 1 TABLET BY DARIA TH EVERY DAY for 90 Active Flecainide Acetate 100 MG 1 tablet [...] BY MOUTH EVERY DAY for 90 Active Immunizations Vaccine Route Administration Date Status [...] Administered pt was given the vaccine at [facility] on [facility]. Fluarix Quadrivalent IM Intramuscular 06/24/2018 Administe red [...] Problem Status W/U Status Risk Notes Problem 549343945 Diverticulitis (K57.92) Active confirmed Problem 075041398 Mixed hyperlipidemia (E78.2) Active confirmed Problem 140306439 Paroxysmal atria l fibrillation (I48.0) Active confirmed Problem 41783378 Atherosclerosis of aorta (I70.0) Active confirmed Problem 16046576989200776 Acute recurren t frontal sinusitis (J01.11) Active confirmed Problem 066497639 Angina effort (I20.8) Active confirmed Problem 193139917 Lumbar disc disease (M51.9) Active confirmed Problem 604164755 Tubular adenoma of colon (D12.6) Active confirmed Problem 04893526 Essential hypertension (I10) Active confirmed Problem 0003912 Prediabetes (R73.09) Active confirmed Problem 161502934 Morbid obesity d ue to excess calories (E66.01) Active confirmed Problem 074419098 Cervical disc disease (M50.90) Active confirmed Problem 649488434 Hammertoe of lef t foot (M20.42) Active [...] Date Provider Diagnosis Blue Acosta MD [address] [place] [id number] 03/27/2024 Blue Acosta Essential hypertensi on I10 ; Prediabetes R73.09 and Preoperative clearance Z01.818 Blue Acosta MD [address] [place] [id number] 07/03/2024 Blue Acosta Mixed hyperlipidemia E78.2 ; Encounter for immunization Z23 ; Essential hypertension I10 and Prediabetes R73.09 Blue Acosta MD [address] [id number] 01/02/2025 Blue Acosta Mixed hyperlipidemia E78.2 and Prediabetes R73.09 Blue Acosta MD [address] [id number] 04/08/2024 Blue Acosta Pre-op evaluation Z01.818 and Hammertoe of left foot M20.42 Blue Acosta MD [address] [place] [id number] 07/10/2024 Blue Acosta Essential hypertensi on I10 ; Prediabetes R73.09 ; Morbid obesity due to excess calories E66.01 ; Guaiac positive stools R19.5 ; Mixed hyperlipidemia E78.2 ; Colon cancer screening Z12.11 ; Depression screening Z13.31 and Paroxysmal atrial fibrillation I48.0 Blue Acosta MD [address] [place] [id number] 01/09/2025 Blue Acosta Pleural effusion J90 ; Lumbar disc disease with radiculopathy M51.16 ; Foot drop, left M21.372 ; Prediabetes R73.09 and Mixed hyperlipidemia E78.2 Blue Acosta MD [address] [place] [id number] 04/11/2024 Blue Acosta MD [address] [facility] [address] [place] [id number] 01/08/2025 Blue Acosta MD [address] [place] [id number] 01/12/2025 Blue Acosta MD [address] [place] [id number] 01/13/2025 Blue Acosta Pleural effusion J90 Assessments [...] testing, THE ORDER HAS BEEN FAXED TO [facility] FOR SCHEDULING 01/13/2025 Pleural effusion (ICD-10 - [...] WITH CONTRAST 2020 Next Appt Details Provider Name:Blue Arechiga ier, 07/10/2025 07:00:00 AM, [address] [place] [address], [address], [phone], Provider Name:Bluelaya Arechiga ier, 07/16/2025 08:00:00 AM, [address] [place] [address], [address], [phone], Insurance Providers Payer Name Payer Address Payer Phone Subscriber Number Group Number Insured Name Patient Relationship to Insured Coverage Start Date Coverage End Date [employer] [address] [place] [address] [id number] Mahin Ambrocio Self - patient is the insured [facility] [address] [place] [phone] [id number] Mahin Ambrocio Self - patient is the insured Medical (General) History Medical History History ICD Code colonoscopy 04/2012 for recta l bleeding due in 10 years; Colonoscopy done 1/13/[address] Sanchez - repeat 5 years
--- OUTSIDE RECORDS SUMMARY | 2025-02-16 14:58 | XMS_ITS ---
Author Organization [facility] Address [address] [place] [address] Care Team Providers Care Risk Modeler Name Role Phone Blue Acosta MD Primary Care Provider Milli Jimenez Unavailable [phone] Allergies Allergen (clinical drug ingredient) Drug/Non Drug [...] 024 Encounters Encounter Location Date Provider Diagnosis [facility] [place] [address] [place] [address] 05/06/2024 Milli Yost Other hammer toe(s) (acquired), [...] Topical: bacitacin applied Removal of: sutures performed [facility] sterile forceps/suture scissors or #15 blade, area cleaned with alcohol prior to removal Progress Notes * Mahin JORGE GDOB:[birth year] (68 yo M)Acc No.[id number]:05/06/2024 Progress Notes Patient:?Mahin Jorge Madan Provider:?Milli Yost DPM :1955???Age:68 Y???Sex:Male Max e:05/06/2024 [facility] Pcp:Blue Acosta MD Subjective: * [...] with alcohol prior to removal.? * Procedure Codes:?45682 X-RAY EXAM OF LEFT FOOT 3V, Modifiers: [...] Yost DPM Date:? Generated for Navjot mccall/Janay/Tanoitting on:?02/16/2025 02:57 PM EDT History and Physical Notes * [...]
== END 2025-02-16 13:29 | disposition home or self-care (01) ==
LOC: HO.MRI 13:28
PROVIDERS: PCP Internal Medicine; Visit Provider Internal Medicine Nephrology
DX: N28.1 Cyst of kidney, acquired (principal)
CPT/HCPCS: 74183; A9585

== ENCOUNTER → 2025-02-16 13:43 | Outpatient (BNV) | payer MEDICARE, OTHER, SELFPAY | PROVIDERS: PCP Internal Medicine; Visit Provider Radiology Diagnostic Radiology | DX: N28.1 Cyst of kidney, acquired (principal) | CPT/HCPCS: 74183 ==

== ENCOUNTER 2025-02-20 08:50 | Outpatient (AMB) | payer MEDICARE, OTHER, SELFPAY ==
--- OUTSIDE RECORDS SUMMARY | 2025-02-20 09:02 | XMS_ITS ---
Author Organization [facility] Address [address] [place] [address] Care Team Providers Care Final Installer Inspector Name Role Phone Blue Acosta MD Primary Care Provider Milli Jimenez Unavailable [phone] Allergies Allergen (clinical drug ingredient) Drug/Non Drug [...] 024 Encounters Encounter Location Date Provider Diagnosis [facility] [place] [address] [place] [address] 04/29/2024 Milli Yost Other hammer toe(s) (acquired), [...] Mahin JORGE GDOB:[birth year] (68 yo M)Acc No.[id number]:04/29/2024 Progress Notes Patient:?Mahin Jorge Provider:?Milli Yost DPM :1955???Age:68 Y???Sex:Male Max e:04/29/2024 Address:[address] [place], [place] [address] Pcp:Blue Acosta MD Subjective: * Chief Complaints: [...] , a light compressive dressing.? * Procedure Codes:?25370 X-RAY EXAM OF LEFT FOOT 3V, Modifiers: [...] Yost DPM Date:? Generated for Navjot mccall/Janay/eTransmitting on:?02/20/2025 09:02 AM EDT History and Physical Notes * [...]
--- OUTSIDE RECORDS SUMMARY | 2025-02-20 09:02 | XMS_ITS ---
Author Organization Blue Acosta MD Address [address] [place], [place] [id number] Care Team Providers Care Inventory Checker Name Role Phone Blue Acosta Primary Care [...] kg/m2 01/09/2025 weight is down 6 pounds [facility] e 07-10-24 Encounters Encounter Location Date Provider Diagnosis Blue Acosta MD [address] [place] [address] [address] [place], [place] [phone] 01/09/2025 Blue Acosta Pleural effusion J90 ; [...] testing, THE ORDER HAS BEEN FAXED TO [facility] FOR SCHEDULING 01/09/2025 Foot drop, left (ICD-10 [...] THE ORDER HAS BEEN FAXED TO [facility] FOR SCHEDULING Foot drop, left pending [...] 07:00:00 AM, [address], [address], [place], [place], [phone], Provider Name:Blue Arechiga ier, 07/16/2025 08:00:00 AM, [address], [address], [place], [place], [phone], Progress Notes * Kyrie JORGE GDOB:[birth year] (69 yo M)Acc No.[id number]:01/09/2025 Progress Notes Patient:?Kyrie JORGE G Provider:?Blue Acosta MD :1955???Age:69 Y???Sex:Male Max e:01/09/2025 Address:[address] [place], [place] [phone] Subjective: * Chief Complaints: * ???6 MO [...] THE ORDER HAS BEEN FAXED TO [facility] FOR SCHEDULING?? 3.?Foot drop, left?Imaging: MRI LUMBAR [...] Acosta MD Date:?0 01/09/2025 Generated for Printi ng/Rajnig/eTransmitting on:?02/20/2025 09:02 AM EDT History and Physical [...]
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
--- OUTSIDE RECORDS SUMMARY | 2025-02-20 09:02 | XMS_ITS ---
Author Organization Blue Acosta MD Address [address] [place] [address] [place] [phone] Care Team Providers Care Helminthologist Name Role Phone Blue Acosta Primary Care Provider [phone] REASON FOR VISIT Repeat CXR Encounters Encounter Location Date Provider Diagnosis Blue Acosta MD [address] [place] [phone] 01/13/2025 Blue Acosta Pleural effusion J90 Assessments [...] Provider Name:Blue garrido, 07/10/2025 07:00:00 AM, [address] [place] [address], [address], [phone], Provider Name:Blue garrido, 07/16/2025 08:00:00 AM, [address] [place] [address], [address], [phone], Progress Notes * Mahin AMBROCIO GDOB:[birth year] (69 yo M)Acc No.[id number]:01/13/2025 Patient:?Mahin AMBROCIO :1955???Age:69 Y???Sex:Male Address:[address] [place] [address] Subjective: * Chief Complaints: * ???Repeat CXR * Medical History:? * Surgical History:? * Hospitalization/Major Diagno stic Procedure:? * Medications:? Objective: * Vitals:? * Physical Examination:? Assessment: * Assessment: 1.?Pleural effusion - J90??? Plan: * Treatment: * Procedure Codes:? * true * Date:? Generated for Navjot mccall/Janay/eTransmitting on:?02/20/2025 09:02 AM EDT
--- OUTSIDE RECORDS SUMMARY | 2025-02-20 09:02 | XMS_ITS ---
Author Organization [facility] Address [address] [place] [address] Care Team Providers Care Transportation Department Supervisor Name Role Phone Blue Acosta MD Primary Care Provider Milli Jimenez Unavailable [phone] Allergies Allergen (clinical drug ingredient) Drug/Non Drug [...] 024 Encounters Encounter Location Date Provider Diagnosis [facility] [place] [address] [place] [address] 05/20/2024 Milli Yost Other hammer toe(s) (acquired), [...] Mahin JORGE GDOB:[birth year] (68 yo M)Acc No.[id number]:05/20/2024 PROGRESS NOTES Patient:?Mahin Jorge Madan Provider:?Milli Yost DPM :1955???Age:68 Y???Sex:Male Max e:05/20/2024 [place] [place] Pcp:Blue Acosta MD Subjective: * Chief [...] Yost DPM Date:?03/2024 Generated for Navjot mccall/Janay/Kristy on:?02/20/2025 09:02 AM EDT History and Physical [...]
--- OUTSIDE RECORDS SUMMARY | 2025-02-20 09:03 | XMS_ITS ---
Author Organization [facility] Address [address] [place] [address] Care Team Providers Care Improvement Spec Name Role Phone Blue Acosta MD Primary Care Provider Corby Michel [phone] Allergies Allergen (clinical drug ingredient) Drug/Non Drug [...] Active confirmed Problem Serrated polyp of colon (891121645) Serrated polyp of colon (K63.5) Active confirmed Vital Signs Blood pressure systolic 111 mm Hg 12/11/19 25 Blood pressure diastolic 11 mm Hg 025 Height 74 in 12/11/2024 Weight 337 lbs 12/11/2024 BMI 43.26 kg/m2 12/11/2024 Procedures Procedure Date Ordered Date Performed Result Body Sit e COLONOSCOPY 12/11/2024 N/A Encounters Encounter Location Date Provider Diagnosis [facility] [address] [facility] [address] [place] [address] 12/11/2024 Corby Sanchez History of adenomato us [...] Name:Corby Herndon Sanchez , 03/20/2025 09:30:00 AM, [address] [place] [address] , [place], [place], [phone], Progress Notes * KYRIE JORGE GDOB:[birth year] (69 yo M)Acc No.[id number]:12/11/2024 Progress Notes Patient:?KYRIE JORGE Provider:?Corby Sanchez MD :1955???Age:69 Y???Sex:Male Max e:12/11/2024 Address:[address] [place] [address] Pcp:Blue Acosta MD Subjective: * Chief Complaints: [...] 2 days before the colonoscopy * Procedure Codes:?52636 DIAGN OSTIC [id number] COLORECTAL CA SCREEN DOC [id number] TOBACCO NON-QCYSC2028 BP SCR NOT PRFRM REC REASON KQM3038W RCMND FLW-UP 10 YRS DOCD * Preventive Medicine:? ??Counseling:?Care goal follow-up plan:?Above Normal BMI Follow-up?Giving encouragement to exercise,?BMI management provided?Yes.? * Follow Up:?prn * * Sign off status: Completed true * Provider:?Corby Sanchez MD Date:? 025 Generated for Navjot mccall/Janay/Kristy on:?02/20/2025 09:02 AM EDT
--- OUTSIDE RECORDS SUMMARY | 2025-02-20 09:03 | XMS_ITS | Patient Health Record ---
Author Organization [facility] Address [address] [place] [address] Care Team Providers Care Direct Care Specialist Name Role Phone Blue Acosta MD Primary Care Provider Milli Jimenez Unavailable [phone] Allergies Allergen (clinical drug ingredient) Drug/Non Drug [...] W/U Status Risk Notes Problem Tinea unguium (117219653) Tinea unguium (B35.1) Active confirmed Problem Acquired hammer toe of left foot (3539353934989257 ) Other hammer toe(s) (acquired), left foot (M20.42) Active confirmed Problem Localized, primary osteoarthritis of the ankle and/or foot (629740297) Arthritis of joint of lesser toe, left (M19.072) Active confirmed Problem Ischemic ulcer of left foot, 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) Active confirmed Response to treatment Vital Signs Blood pressure diastolic 58 mm Hg 05/20/2024 Height 6ft3in in 05/20/2024 Blood pressure systolic 122 mm Hg 05/20/2024 Weight 315 lbs 05/20/2024 BMI 39.37 kg/m2 05/20/2024 Encounters Encounter Location Date Provider Diagnosis [facility] [address] [place] [address] 04/23/2024 Milli Schulza [facility] [address] [place] [address] 04/10/2024 Milli Pericrenee Pain in left toe(s) M79.675 ; Other hammer toe(s) (acquired), left foot M20.42 and Exostosis of toe M89.8X7 [address] [address] 04/29/2024 Milli Perica Other hammer toe(s) (acquired), left foot M20.42 and Exostosis of toe M89.8X7 [address] [address] 05/06/2024 Milli Perica Other hammer toe(s) (acquired), left foot M20.42 and Exostosis of toe M89.8X7 [address] [address] 05/20/2024 Milli Perica Other hammer toe(s) (acquired), left foot M20.42 and Exostosis of toe M89.8X7 [address] [address] 04/23/2024 Milli Perica [address] [address] 04/24/2024 Milli Yost Assessments Encounter Date Diagnosis [...] X ray : Foot, left 3V 05/06/2024 02879-XJREMXM NAIL, 1-5 08/17/2023 94157-MRAFRCM NAIL, 1-5 03/31/2016 04737- Debride <25 sq cm 09/02/2013 19103- Debride <25 sq cm 08/17/2023 49192-PCMVIZY SKIN/TISSUE 07/07/2013 73055-ASNYBYX SKIN/TISSUE 07/22/2013 72677-VOYAKVO SKIN/TISSUE 08/12/2013 Insurance Providers Payer Name Payer Address Payer Phone Subscriber Number Group Number Insured Name Patient Relationship to Insured Coverage Start Date Coverage End Date Medicare National [employer] [address] [place] [address] [id number] Mahin Ha Self - patient is the insured iogyn ([employer]) [address] [place] [address] [id number] Mahin Ha Self - patient is [...]
--- OUTSIDE RECORDS SUMMARY | 2025-02-20 09:04 | XMS_ITS ---
Author Organization Blue Acosta MD Address [address] [place] [phone] Care Team Providers Care Project Management Professional Name Role Phone Blue Acosta Primary Care Provider [phone] REASON FOR VISIT MRI order Encounters Encounter Location Date Provider Diagnosis Blue Acosta MD [address] [place] [address] [address] [place], [place] [phone] 01/12/2025 Blue Acosta Plan Of Treatment Next Appt Details Provider Name:Blue Arechiga ier, 07/10/2025 07:00:00 AM, [address] [place] [address], [address] [facility], [place], [place], [phone], Provider Name:Blue Arechiga iebunny, 07/16/2025 08:00:00 AM, [address] [place] [address], [address] [place] [address], [phone], Progress Notes * Mahin JORGE GDOB:[birth year] (69 yo M)Acc No.[id number]:01/12/2025 Patient:?Mahin JORGE :1955???Age:69 Y???Sex:Male Address:[address] [place] [address] * true * Date:? Generated for Printi ng/Favidyag/eTransmitting on:?02/20/2025 09:03 AM EDT
--- OUTSIDE RECORDS SUMMARY | 2025-02-20 09:04 | XMS_ITS ---
Author Organization [facility] Address [address] [place] [address] Care Team Providers Care Vehicle Sales Professional Name Role Phone Blue Acosta MD Primary Care Provider Milli Jimenez Unavailable [phone] Allergies Allergen (clinical drug ingredient) Drug/Non Drug [...] 024 Encounters Encounter Location Date Provider Diagnosis [facility] [place] [address] [place] [address] 05/06/2024 Milli Yost Other hammer toe(s) (acquired), [...] Mahin JORGE GDOB:[birth year] (68 yo M)Acc No.[id number]:05/06/2024 Progress Notes Patient:?Mahin Jorge Madan Provider:?Milli Yost [...] with alcohol prior to removal.? * Procedure Codes:?37274 X-RAY EXAM OF LEFT FOOT 3V, Modifiers: [...] Yost DPM Date:? Generated for Navjot mccall/Janay/Kristy on:?02/20/2025 09:03 AM EDT History and Physical Notes * [...]
--- OUTSIDE RECORDS SUMMARY | 2025-02-20 09:04 | XMS_ITS | Patient Health Record ---
Author Organization Blue Acosta MD Address [address] [place], [place] [id number] Care Team Providers Care Meter Inspector Name Role Phone Blue Acosta Primary Care Provider Allergies Allergen (clinical drug ingredient) Drug/Non Drug Allergy documented on EMR Reaction Allergy Type Onset Date Status zolpidem ambien (uncoded) hallucinations Allergy Active amoxil (uncoded) rash Allergy Act dick Results Component Value Reference Range Notes Complete Blood Count Auto Di ff Reviewed date:03/27/2024 12:20:52 PM Interpretation: Performing Lab:[facility], [address] [place] [phone] Notes/Report: White Blood Count 8.7 4.8-10.8 X10*3/uL [...] Panel Reviewed date:03/27/2024 12:20:24 PM Interpretation: Performing Lab:[facility], [address] [place] [phone] Notes/Report: Sodium 139 135-145 mmol/L Potassium 4.4 3.3-5.1 mmol/L Chloride 103 96-108 mmol/L Carbon Dioxide 28 22-29 mmol/L Anion Gap 12 12-20 Blood Urea Nitrogen 18 9-16 mg/dL Creatinine 0.95 0.5-1.4 mg/dL Estimated Glomerular Filt Rate > 60 NOTE: For -Lao individuals, multiply the result by 1.210. Chronic Kidney Disease: Estimated GFR < 60 mL/min/1.73m2 Severe Kidney Disease: Estimated GFR < 15 mL/min/1.73m2 Glucose Random 128 60-115 mg/dL Calcium 9.6 8.4-10.2 mg/dL Hemoglobin A1c Reviewed date:03/27/2024 12:04:26 PM Interpretation: Performing Lab:[facility], [address] [place] [phone] Notes/Report: Hemoglobin A1c % 5.8 <6.0 % [...] average glucose, using the formula of the R0O-Gknohvq Average Glucose study (ADAG), Diabetes Care, Vol.31,#8, 2007 Complete Blood Count Auto Di ff Reviewed date:07/03/2024 05:03:13 PM Interpretation: Performing Lab:[facility], [address] [place] [phone] Notes/Report: White Blood Count 8.5 4.8-10.8 X10*3/uL [...] NRBC Abs Auto 0.000 0.0-0.012 X10*3/uL Comprehensive Odell. Panel Fa st Reviewed date:07/03/2024 12:20:41 PM Interpretation: Performing Lab:[facility], [address] [place] [phone] Notes/Report: Sodium 140 135-145 mmol/L Potassium 4.2 3.3-5.1 mmol/L Chloride 105 96-108 mmol/L Carbon Dioxide 28 22-29 mmol/L Anion Gap 11 12-20 Blood Urea Nitrogen 16 9-16 mg/dL Creatinine 0.91 0.5-1.4 mg/dL Estimated Glomerular Filt Rate > 60 NOTE: For -Lao individuals, multiply the result by 1.210. Chronic [...] Panel Reviewed date:07/03/2024 12:16:21 PM Interpretation: Performing Lab:[facility], [address] [place] [phone] Notes/Report: Triglycerides 103 <150 mg/dL Desirable Triglyceride: [...] (Free>4and<10) Reviewed date:07/03/2024 12:17:59 PM Interpretation: Performing Lab:[facility], [address] [place] [phone] Notes/Report: PSA,Total (Free>4and<10) 0.31 0.00-4.00 ng/mL A [...] Random Reviewed date:07/03/2024 12:30:42 PM Interpretation: Performing Lab:[address] [phone] Notes/Report: Creatinine Urine 52.54 Microalbumin Urine < 5.0 Microalbum/Creatinine Ratio Ur TNP <30 ug/mg cr Unable to calculate albumin/creatinine ratio due to low microalbumin or creatinine result. Hemoglobin A1c Reviewed date:07/03/2024 12:16:31 PM Interpretation: Performing Lab:[address] [phone] Notes/Report: Hemoglobin A1c % 5.6 <6.0 % [...] average glucose, using the formula of the P8W-Hanzgqj Average Glucose study (ADAG), Diabetes Care, Vol.31,#8, May. 2007 UA ClnCatch+Micro w/rflx Cul t Reviewed date:07/03/2024 12:27:43 PM Interpretation: Performing Lab:[address] [phone] Notes/Report: Urine, Clean Catch Color Urine Yellow Appearance Urine Clear PH 5.5 5.0-9.0 Glucose Urine UA Negative Negative mg/dL Urine Blood Negative Negative Specific Tully - Urine 1.010 1.005-1.025 Urine Protein Negative Neg-Trace mg/dL Urine Ketones Negative Negative mg/dL Nitrite Urine Negative Negative Leukocyte Esterase Urine Negative Negative RBC Urine 0-2 0-2 /HPF WBC Urine 0-5 0-5 /HPF Squamous Epithelial Cell Urine 0-2 0-2 /HPF Bacteria Urine None Seen None Seen Hyaline Casts Urine 0-2 0-2 /LPF Liver Panel Reviewed date:01/02/2025 12:30:46 PM Interpretation: Performing Lab:[address] [phone] Notes/Report: Bilirubin Total 0.6 0.0-1.0 mg/dL Bilirubin Direct 0.3 0.0-0.5 mg/dL Aspartate Amino Transferase 29 5-37 U/L Alanine Aminotransferase 22 0-40 U/L Total Protein 7.6 6.5-8.0 g/dL Albumin Level 3.9 3.5-5.0 g/dL Alkaline Phosphatase 80 39-117 U/L Glucose Fasting Reviewed date:01/02/2025 12:30:54 PM Interpretation: Performing Lab:[address] [phone] Notes/Report: Glucose Fasting 118 60-99 mg/dL A fasting glucose from 100-125 mg/dl is considered impaired (pre-diabetes). Lipid Panel with Reflex Reviewed date:01/02/2025 12:31:05 PM Interpretation: Performing Lab:[address] [phone] Notes/Report: Triglycerides 118 <150 mg/dL Desirable Triglyceride: [...] A1c Reviewed date:01/03/2025 06:16:13 PM Interpretation: Performing Lab:[facility], [address] [place] [phone] Notes/Report: Hemoglobin A1c % 5.6 <6.0 % [...] average glucose, using the formula of the M1A-Lfszguc Average Glucose study (ADAG), Diabetes Care, Vol.31,#8, May. 2007 Electrocardiogram (EKG) Reviewed date:04/11/2024 08:01:33 AM Interpretation: Performing Lab: Notes/Report: Johnie Milner Reviewed date:03/27/2024 11:56:17 AM Interpretation: Performing Lab:[facility], [address] [place] [phone] Notes/Report: Johnie Milner See Note Specimen held untested for 24 hours; Call to request Chemistry testing. Johnie Milner Reviewed date:01/02/2025 12:23:00 PM Interpretation: Performing Lab:[facility], [address] [place] [phone] Notes/Report: Johnie Milner See Note Specimen held untested for 24 hours; Call to request Chemistry testing. Complete Blood Count Auto Di ff Reviewed date:01/06/2025 08:02:47 PM Interpretation: Performing Lab:[facility], [address] [place] [phone] Notes/Report: White Blood Count 12.8 4.8-10.8 X10*3/uL [...] Panel Reviewed date:01/06/2025 08:04:15 PM Interpretation: Performing Lab:[facility], [address] [place] [phone] Notes/Report: Sodium 140 135-145 mmol/L Potassium 4.1 [...] Magnesium Reviewed date:01/06/2025 07:58:26 PM Interpretation: Performing Lab:[address] [phone] Notes/Report: Magnesium 1.8 1.6-2.6 mg/dL Lipase Reviewed date:01/06/2025 07:58:34 PM Interpretation: Performing Lab:[facility], [address] [place] [phone] Notes/Report: Lipase 23 8-78 U/L CT NG by PCR Reviewed date:01/07/2025 02:59:49 PM Interpretation: Performing Lab:[address] [phone] Notes/Report: Urine CT PCR NOT DETECTED Not [...] Cult Reviewed date:01/08/2025 04:41:34 PM Interpretation: Performing Lab:[facility], [address] [place] [phone] Notes/Report: Urine, Clean Catch Color Urine Yellow Appearance Urine Clear PH 5.5 5.0-9.0 Glucose Urine UA Negative Negative mg/dL Urine Blood Negative Negative Specific Tully - Urine 1.015 1.005-1.025 Urine Protein Negative Neg-Trace mg/dL Urine Ketones Negative Negative mg/dL Nitrite Urine Negative Negative Leukocyte Esterase Urine Negative Negative CT abdomen pelvis wo con Reviewed date:01/06/2025 08:03:52 PM Interpretation: Performing Lab: Notes/Report: [address] [address] [address] Scan Report Signed Patient: Mahin Ambrocio MR#: [id number] 045 : 1955 Acct:[id number] Age/Sex: 69 / M ADM Date: 01/06/25 Loc: HO.ED Attending Dr: Ordering Physician: Cristina Birmingham Date of Service: 01/06/25 Procedure(s): CT abdomen pelvis wo IV con Accession Number(s): [id number] cc: Blue Acosta MD; Cristina Birmingham Report Number: [id number]: Total DLP = 1401.00 mGy-cm EXAMINATION: CT [...] 01/06/25 1414 DD/ 1310 TD/TT: 01/06/25 1402 Plating Technician: [address] [address] [address] Scan Report Signed Patient: Ziyad Ambrocio in G MR#: [id number] 045 : 1955 Acct:[id number] Age/Sex: 69 / M ADM Date: 01/06/25 Loc: HO.ED Attending Dr: Ordering Physician: Cristina Birmingham Date of Service: 01/06/25 Procedure(s): CT abd omen pelvis wo IV con Accession Number(s): [id number] cc: Blue Acosta MD; Cristina Birmingham Report Number: [id number]: Total DLP = 1401.00 mGy-cm EXAMINATION: CT [...] 01/06/25 1414 DD/ 1310 TD/TT: 01/06/25 1402 Plating Technician: US scrotum Reviewed date:01/07/2025 03:00:25 PM Interpretation: Performing Lab: Notes/Report: [address] [address] Ultrasound Report Signed Patient: Mahin Ambrocio MR#: [id number] 045 : 1955 Acct:[id number] Age/Sex: 69 / M ADM Date: 01/06/25 Loc: HO.ED Attending Dr: Ordering Physician: Omid Lopez MD Date of Service: 01/06/25 Procedure(s): US scrotum Accession Number(s): [id number] cc: Blue Acosta MD; Omid Lopez MD CLINICAL HISTORY: L testicular pain. Ultrasound scrotum. COMPARISON: None Technique: Real time sonographic imaging, including color-flow imaging, was performed by the cardiovascular tech. Multiple sales representative public utilities static images were saved for review. FINDINGS: [...] OV> 01/07/25 0804 DD/ 15 TD/TT: 01/06/251815 Plating Technician: [place] [address] Ultrasound Report Signed Patient: Ziyad Ambrocio MR#: [id number] 045 : 1955 Acct:[id number] Age/Sex: 69 / M ADM Date: 01/06/25 Loc: HO.ED Attending Dr: Ordering Physician: Omid Lopez MD Date of Service: 01/06/25 Procedure(s): US scrotum Accession Number(s): [id number] cc: Blue Acosta MD; Omid oLpez MD CLINICAL HISTORY: L testicular pain. Ultrasound scrotum. COMPARISON: None Technique: Real time sonographic imaging, including color-flow imaging, was performed by the cardiovascular tech. Multiple sales representative public utilities static images were saved for review. FINDINGS: [...] OV> 01/07/25 0804 DD/ 15 TD/TT: 01/06/251815 Plating Technician: US scrotum doppler Reviewed date:01/06/2025 08:04:52 PM Interpretation: Performing Lab: Notes/Report: [place] [address] Ultrasound Report Signed Patient: Mahin Ambrocio MR#: [id number] 045 : 1955 Acct:[id number] Age/Sex: 69 / M ADM Date: 01/06/25 Loc: HO.ED Attending Dr: Ordering Physician: Louise Callejas Date of Service: 01/06/25 Procedure(s): US scrotum doppler Accession Number(s): [id number] cc: Blue Acosta MD; Louise Callejas CLINICAL HISTORY: L testicular pain. Ultrasound scrotum. COMPARISON: None Technique: Real time sonographic imaging, including color-flow imaging, was performed by the cardiovascular tech. Multiple sales representative public utilities static images were saved for review. FINDINGS: [...] in OV> 01/06/251815 DD/ 15 TD/TT: 01/06/251815 Plating Technician: [place] [address] Ultrasound Report Signed Patient: Ziyad Ambrocio MR#: [id number] 045 : 1955 Acct:[id number] Age/Sex: 69 / M ADM Date: 01/06/25 Loc: HO.ED Attending Dr: Ordering Physician: Louise Callejas Date of Service: 01/06/25 Procedure(s): US scr otum doppler Accession Number(s): [id number] cc: Blue Acosta MD; Louise Callejas CLINICAL HISTORY: L testicular pain. Ultrasound scrotum. COMPARISON: None Technique: Real time sonographic imaging, including color-flow imaging, was performed by the cardiovascular tech. Multiple sales representative public utilities static images were saved for review. FINDINGS: [...] OV> 01/06/25 1816 DD/ 15 TD/TT: 01/06/251815 Plating Technician: XR chest 2V Reviewed date:01/13/2025 02:56:25 PM Interpretation: Performing Lab: Notes/Report: [address] [address] XRay Report Signed Patient: Mahin Ambrocio MR#: [id number] 045 : 1955 Acct:[id number] Age/Sex: 69 / M ADM Date: 01/09/25 Loc: HO.XRAY Attending Dr: Blue Acotsa MD Ordering Physician: Blue Acosta MD Date of Service: 01/09/25 Procedure(s): XR chest 2V Accession Number(s): [id number] cc: Blue Acosta MD EXAMINATION: XR CHEST [...] 01/09/25 1059 DD/ 1000 TD/TT: 01/09/25 1010 Plating Technician: [address] [address] XRay Report Signed Patient: Ziyad Ambrocio MR#: [id number] 045 : 1955 Acct:[id number] Age/Sex: 69 / M ADM Date: 01/09/25 Loc: HO.XRAY Attending Dr: Blue Acosta MD Ordering Physician: Blue Acosta MD Date of Service: 01/09/25 Procedure(s): XR isaias st 2V Accession Number(s): [id number] cc: Blue Acosta MD EXAMINATION: XR CHEST [...] 01/09/25 1059 DD/ 1000 TD/TT: 01/09/25 1010 Plating Technician: abdomen wo/w con Reviewed date:02/17/2025 04:48:05 PM Interpretation: Performing Lab: Notes/Report: [address] [address] Magnetic Resonance Report Signed Patient: Mahin Ambrocio MR#: [id number] 045 : 1955 Acct:[id number] Age/Sex: 69 / M ADM Date: 02/16/25 Loc: HO.MRI Attending Dr: Jamey Rojas MD Ordering Physician: Jamey Rojas MD Date of Service: 02/16/25 Procedure(s): MR abdomen wo/w con Accession Number(s): [id number] cc: Blue Acosta MD; Jamey Rojas MD CLINICAL HISTORY: N28.1 - Cyst of kidney, acquired MR abdomen with and without gadolinium Comparison: CT/IL/SR - CT ABDOMEN PELVIS WO IV CON - 01/06/25 13:10 EDT Findings: There are several benign nonenhancing cysts in the right kidney the largest is seen in the midpole measuring up to 3.4 cm in greatest diameter. There are no septations or solid components. One or 2 tiny cysts are seen in the left kidney. The patient is status post cholecystectomy. The rest of the solid organs are unremarkable. No ascites. The visualized bowel is within normal limits. Examination of the bones and soft tissues demonstrates a hemangioma within the L4 vertebral body. IMPRESSION: Benign renal cysts. Small hemangioma L4 vertebra. This document has been electronically signed by: Wilfrid Houston MD on 02/17/2025 13:09:58 Dictated By: Wilfrid Houston MD Signed By: <Electronically signed by Wilfrid Houston MD in OV> 02/17/25 1311 DD/ 1309 TD/TT: 02/17/25 1309 Plating Technician: [place] [address] Magnetic Resonance Report Signed Patient: Ziyad Ambrocio MR#: [id number] 045 : 1955 Acct:[id number] Age/Sex: 69 / M ADM Date: 02/16/25 Loc: HO.MRI Attending Dr: Jamey Rojas MD Ordering Physician: Jamey Rojas MD Date of Service: 02/16/25 Procedure(s): MR abd omen wo/w con Accession Number(s): [id number] cc: Blue Acosta MD; Jamey Rojas MD CLINICAL HISTORY: N2 8.1 - Cyst of kidney, acquired MR abdomen with and without gadolinium Comparison: CT/IL/SR - CT ABDOMEN PELVIS WO IV CON - 01/06/25 13:10 EDT Findings: There are several be nign nonenhancing cysts in the right kidney the largest is seen in t he midpole measuring up to 3.4 cm in greatest diameter. There are no septations or solid components. One or 2 tiny cysts are seen in the left kidney. The patient is statu s post cholecystectomy. The rest of the benita d organs are unremarkable. No ascites. The visualized bowel is within normal limits. Examination of the b ones and soft tissues demonstrates a hemangioma within the L4 vertebral body. IMPRESSION: Benign renal cysts. Small hemangioma L4 vertebra. This document has be en electronically signed by: Wilfrid Houston MD on 02/17/2025 13:09:58 Dictated By: Wilfrid Houston MD Signed By: <Electronically signed by Wilfrid Houston MD in OV> 02/17/25 1311 DD/ 1309 TD/TT: 02/17/25 1309 Plating Technician: Reason For Referral No Information Medications Medication [...] pt was given the vaccine at [facility] on [address]. Fluarix Quadrivalent IM Intramuscular 06/24/2018 Administe red [...] Problem Status W/U Status Risk Notes Problem 290935275 Diverticulitis (K57.92) Active confirmed Problem 144920341 Mixed hyperlipidemia (E78.2) Active confirmed Problem 564505743 Paroxysmal atria l fibrillation (I48.0) Active confirmed Problem 85295246 Atherosclerosis of aorta (I70.0) Active confirmed Problem [id number] Acute recurren t frontal sinusitis (J01.11) Active confirmed Problem 293277179 Angina effort (I20.8) Active confirmed Problem 350583321 Lumbar disc disease (M51.9) Active confirmed Problem 982988755 Tubular adenoma of colon (D12.6) Active confirmed Problem 03467906 Essential hypertension (I10) Active confirmed Problem 0953856 Prediabetes (R73.09) Active confirmed Problem 365506380 Morbid obesity d ue to excess calories (E66.01) Active confirmed Problem 713565717 Cervical disc disease (M50.90) Active confirmed Problem 214493969 Hammertoe of lef t foot (M20.42) Active [...] Location Date Provider Diagnosis Blue Acosta MD [address] [place] [id number] 03/27/2024 Blue Acosta Essential hypertensi on I10 ; Prediabetes R73.09 and Preoperative clearance Z01.818 Blue Acosta MD [address] [place] [address] Drive [address] [place] [id number] 07/03/2024 Blue Acosta Mixed hyperlipidemia E78.2 ; Encounter for immunization Z23 ; Essential hypertension I10 and Prediabetes R73.09 Blue Acosta MD [address] [place] [address] Drive [address] [place] [id number] 01/02/2025 Blue Acosta Mixed hyperlipidemia E78.2 and Prediabetes R73.09 Blue Acosta MD [address] [place] [id number] 04/08/2024 Blue Acosta Pre-op evaluation Z01.818 and Hammertoe of left foot M20.42 Blue Acosta MD [address] [place] [id number] 07/10/2024 Blue Acosta Essential hypertensi on I10 ; Prediabetes R73.09 ; Morbid obesity due to excess calories E66.01 ; Guaiac positive stools R19.5 ; Mixed hyperlipidemia E78.2 ; Colon cancer screening Z12.11 ; Depression screening Z13.31 and Paroxysmal atrial fibrillation I48.0 Blue Acosta MD [address] [place] [id number] 01/09/2025 Blue Acosta Pleural effusion J90 ; Lumbar disc disease with radiculopathy M51.16 ; Foot drop, left M21.372 ; Prediabetes R73.09 and Mixed hyperlipidemia E78.2 Blue Acosta MD [address] [place] [id number] 04/11/2024 Blue Acosta MD [address] [place] [address] [id number] 01/08/2025 Blue Acosta MD [address] [place] [address] [id number] 01/12/2025 Blue Acosta MD [address] [place] [address] [id number] 01/13/2025 Blue Puriardiladonna Pleural effusion J90 Assessments Encounter Date Diagnosis [...] Provider Name:Blue Arechiga ier, 07/10/2025 07:00:00 AM, [address] [place] [address], [address], [place], [place], [id number], Provider Name:Blue Arechiga ier, 07/16/2025 08:00:00 AM, [address], [address], [place], [place], [id number], Insurance Providers Payer Name Payer Address Payer Phone Subscriber Number Group Number Insured Name Patient Relationship to Insured Coverage Start Date Coverage End Date MEDICARE NHIC SOL [address] [place] [address] [id number] Mahin Ambrocio Self - patient is the insured [facility] [address] [place] [phone] [id number] Mahin Ambrocio Self - patient is the insured Medical (General) History Medical History History ICD Code colonoscopy 04/2012 for recta l bleeding due in 10 years; Colonoscopy done 10/27/[address] Sanchez - repeat 5 years
--- NOTE | 2025-02-20 09:14 | HO.SPINEOV ---
Intake Visit Reasons: low back pain Intake Note: Mr. Ha c/o low back pain. MRI done @ [facility]. Ocean Export Coordinator Required: No Allergies grass pollen-nisha, standard [Grass Pollen-Nisha,Std] Allergy (Mild, Verified 01/30/25 12:05) Unknown pollen extracts [POLLEN] Allergy (Mild, Verified 01/30/25 12:05) Unknown zolpidem [Ambien] Allergy (Unknown, Verified 01/30/25 12:05) Unknown house dust Allergy (Verified 01/30/25 12:05) Unknown environmental allergies Adverse Reaction (Verified 01/30/25 12:05) Sinus Inflammation Assessment & Plan Assessment & Plan (1) Spondylolisthesis, lumbar region: Code(s): M43.16 - Spondylolisthesis, lumbar region Category: Medical Plan Dear colleague Thank you for referring Mahin Ha to the office today with a chief complaint of left leg pain. HPI: This 69-year-old male comes to the office complaining of left leg pain. The pain started approximately 1 month ago and radiates from the back to the groin and to the outside of the leg into the foot. The pain comes after prolonged sitting or walking. Initially the pain was severe and he could not put any weight on it but currently this has improved. The right side is unaffected. He has numbness in his same area for many years but never had pain before. A 2nd complaint is neck pain predominantly on the right side that started after severe trauma where he fell. His jaw was injured the need to be repaired with a an autograft. Since that time he suffering from neck pain. He denies radiation down his arms. The following conservative treatment options were tried without success antiinflammatories, tylenol, physical therapy, cortisone shots PMH: Hypertension, AFib. Medications: Atorvastatin, Celebrex, gabapentin, lisinopril, metoprolol, Xarelto, tramadol Allergies: Zolpidem Social history: Nonsmoker Physical Exam: Height 6'3 weight 334 lb. Straight leg raise negative. Motor sensory and reflexes are symmetrically intact for the upper and lower extremities. Radiological Studies: MRI done at [facility] on 01/23/2025 shows mild L4-5 spondylolisthesis due to facet arthrosis and a mild spondylolisthesis. Dynamic lumbar x-rays show no signs of instability. Impression/Plan: This patient is suffering from a left L5 radiculopathy that is most likely associated with the mild spinal stenosis and lateral recess stenosis L4-5. I advised him to continue conservative measurements to see if it will be self-limiting. He will return to my office if the symptoms persist. As far as the neck, I was unable to review the imaging as the images were not uploaded. The patient will [facility] to upload the images for me to review. Thank you for allowing me to participate in your patients care. total time spent was 50 minutes in counseling ,coordination of plan, personal review of imaging, surgical decision making and subsequent plan Simon Solano MD, PhD Spine Fellowship Trained Neurosurgeon Director, [facility] Orders: Orders XR lumbar spine 4V min Today M43.16 - Spondylolisthesis, lumbar region Coding Level of Care Code New Pt Level 4 (40727) Diagnoses Spondylolisthesis, lumbar region M43.16
== END 2025-02-20 09:52 | disposition home or self-care (01) ==
LOC: HO.HNS 08:50
PROVIDERS: PCP Internal Medicine; Visit Provider Neurological Surgery
DX: M43.16 Spondylolisthesis, lumbar region (principal)
CPT/HCPCS: 99204

== ENCOUNTER 2025-02-20 08:50 | Outpatient (REF) | payer MEDICARE, OTHER, SELFPAY ==
--- NOTE | ~2025-02-20 | XR_ITS ---
CLINICAL HISTORY: M43.16 - Spondylolisthesis, lumbar region 4 views lumbar spine Comparison: CT/HI/SR - CT ABDOMEN PELVIS WO IV CON - 01/06/25 13:10 EDT Findings: Grade 1 anterolisthesis of L4 on L5 measuring 5 mm likely related to facet hypertrophy. This is unchanged on flexion-extension. Multilevel disc height loss with reactive endplate changes. Lower lumbar facet hypertrophy. No acute fractures or dislocation. Vascular calcium. IMPRESSION: Degenerative changes. Grade 1 spondylolisthesis of L4 on L5. No evidence of instability on flexion-extension. This document has been electronically signed by: Jenniffer Tinsley MD on 02/23/2025 08:22:07
== END 2025-02-20 08:51 | disposition home or self-care (01) ==
LOC: HO.HOSX 08:50
PROVIDERS: PCP Internal Medicine; Visit Provider Neurological Surgery
DX: M43.16 Spondylolisthesis, lumbar region (principal)
CPT/HCPCS: 72110; 99202

== ENCOUNTER → 2025-02-20 09:17 | Outpatient (BNV) | payer MEDICARE, OTHER, SELFPAY | PROVIDERS: PCP Internal Medicine; Visit Provider Radiology Diagnostic Radiology | DX: M43.16 Spondylolisthesis, lumbar region (principal) | CPT/HCPCS: 72110 ==

== ENCOUNTER 2025-02-27 13:32 | Outpatient (AMB) | payer MEDICARE, OTHER, SELFPAY ==
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
--- OUTSIDE RECORDS SUMMARY | 2025-02-27 13:34 | XMS_ITS ---
Author Organization [facility] Address [address] [place] [address] Care Team Providers Care Grit Blaster Name Role Phone Blue Acosta MD Primary Care Provider Corby Michel [phone] REASON FOR VISIT FYI Encounters Encounter Location Date Provider Diagnosis [facility] [address] [facility] [address] [place] [phone] 02/24/2025 Corby Sanchez Plan Of Treatment Next Appt Details Provider Name:Corby Sanchez , 03/30/2025 02:20:00 PM, [address] [place] [address], [phone], Progress Notes * KYRIE JORGE GDOB:[birth year] (69 yo M)Acc No.[id number]:02/24/2025 Patient:?KYRIE JORGE :1955???Age:69 Y???Sex:Male Address:[address] [place] [address] * true * Date:? Generated for Printi ng/Favidyag/eTransmitting on:?02/27/2025 01:33 PM EDT
--- OUTSIDE RECORDS SUMMARY | 2025-02-27 13:34 | XMS_ITS ---
Author Organization Blue Acosta MD Address [address] [place] [address] [place] [phone] Care Team Providers Care Ambulance Driver Paramedic Name Role Phone Blue Acosta Primary Care Provider REASON FOR VISIT Repeat CXR Encounters Encounter Location Date Provider Diagnosis Blue Acosta MD [address] [place] [phone] 01/13/2025 Blue Acosta Pleural effusion J90 Assessments [...] Details Provider Name:Blue garrido, 07/10/2025 07:00:00 AM, [address] [place] [address], [address], [phone], Provider Name:Blue garrido, 07/16/2025 08:00:00 AM, [address] [place] [address], [address], [phone], Progress Notes * Mahin AMBROCIO GDOB:[birth year] (69 yo M)Acc No.[id number]:01/13/2025 Patient:?Mahin AMBROCIO :1955???Age:69 Y???Sex:Male Address:[address] [place] [address] Subjective: * Chief Complaints: * ???Repeat CXR * Medical History:? * Surgical History:? * Hospitalization/Major Diagno stic Procedure:? * Medications:? Objective: * Vitals:? * Physical Examination:? Assessment: * Assessment: 1.?Pleural effusion - J90??? Plan: * Treatment: * Procedure Codes:? * true * Date:? Generated for Navjot mccall/Janay/eTransmitting on:?02/27/2025 01:34 PM EDT
--- OUTSIDE RECORDS SUMMARY | 2025-02-27 13:34 | XMS_ITS ---
Author Organization Blue Acosta MD Address [address] [place], [place] [phone] Care Team Providers Care Assistant Media Buyer Name Role Phone Blue Acosta Primary Care [...] 6 pounds [facility] e 07-10-24 Encounters Encounter Location Date Provider Diagnosis Blue Acosta MD [address] [place] [address] [address] [place], [place] [phone] 01/09/2025 Blue Acosta Pleural effusion J90 ; [...] testing, THE ORDER HAS BEEN FAXED TO [facility] FOR SCHEDULING 01/09/2025 Foot drop, left (ICD-10 [...] testing, THE ORDER HAS BEEN FAXED TO [facility] FOR SCHEDULING Foot drop, left pending [...] 07:00:00 AM, [address], [address], [place], [place], [phone], Provider Name:Blue Arechiga ier, 07/16/2025 08:00:00 AM, [address], [address], [place], [place], [phone], Progress Notes * Kyrie JORGE GDOB:[birth year] (69 yo M)Acc No.[id number]:01/09/2025 Progress Notes Patient:?Kyrie JORGE G Provider:?Blue Acosta MD :1955???Age:69 Y???Sex:Male Max e:01/09/2025 Address:[address] [place], [place] [phone] Subjective: * Chief Complaints: * ???6 MO [...] testing, THE ORDER HAS BEEN FAXED TO [facility] FOR SCHEDULING?? 3.?Foot drop, left?Imaging: MRI [...] MD Date:?0 01/09/2025 Generated for Printi ng/Favidyag/eTransmitting on:?02/27/2025 01:33 PM EDT History and Physical Notes * [...]
--- OUTSIDE RECORDS SUMMARY | 2025-02-27 13:34 | XMS_ITS | Patient Health Record ---
Author Organization [facility] Address [address] [place] [address] Care Team Providers Care Bender Helper Name Role Phone Blue Acosta MD Primary Care Provider Milli Jimenez Unavailable [phone] Allergies Allergen (clinical drug ingredient) Drug/Non Drug [...] W/U Status Risk Notes Problem Tinea unguium (351846681) Tinea unguium (B35.1) Active confirmed Problem Acquired hammer toe of left foot (9410547092207219 ) Other hammer toe(s) (acquired), left foot (M20.42) Active confirmed Problem Localized, primary osteoarthritis of the ankle and/or foot (305251890) Arthritis of joint of lesser toe, left [...] Date Provider Diagnosis Surgery [facility] ([facility] [address] [place] [address] 04/23/2024 Milli Schulza [facility] [address] [place] [address] 04/10/2024 Milli Pericrenee Pain in left toe(s) M79.675 ; Other hammer toe(s) (acquired), left foot M20.42 and Exostosis of toe M89.8X7 [address] [address] 04/29/2024 Milli Perica Other hammer toe(s) (acquired), left foot M20.42 and Exostosis of toe M89.8X7 [address] [address] 05/06/2024 Milli Perica Other hammer toe(s) (acquired), left foot M20.42 and Exostosis of toe M89.8X7 [address] [address] 05/20/2024 Milli Perica Other hammer toe(s) (acquired), left foot M20.42 and Exostosis of toe M89.8X7 [address] [address] 04/23/2024 Milli Perica [address] [address] 04/24/2024 Milli Yost Assessments Encounter Date Diagnosis [...] X ray : Foot, left 3V 05/06/2024 15571-SBOYTKE NAIL, 1-5 08/17/2023 52057-ITKVUZW NAIL, 1-5 03/31/2016 19370- Debride <25 sq cm 09/02/2013 83995- Debride <25 sq cm 08/17/2023 75255-QGPAXSS SKIN/TISSUE 07/07/2013 44439-IUQPDKO SKIN/TISSUE 07/22/2013 09476-XKEYLKV SKIN/TISSUE 08/12/2013 Insurance Providers Payer Name Payer Address Payer Phone Subscriber Number Group Number Insured Name Patient Relationship to Insured Coverage Start Date Coverage End Date Medicare National [employer] [address] [place] [address] [id number] Mahin Ha Self - patient is the insured [employer] ([employer]) [address] [place] [address] [phone] [id number] Mahin Ha Self - patient is [...]
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
--- OUTSIDE RECORDS SUMMARY | 2025-02-27 13:34 | XMS_ITS ---
Author Organization [facility] Address [address] [place] [address] Care Team Providers Care Distribution Coordinator Name Role Phone Blue Acosta MD Primary Care Provider Milli Jimenez Unavailable [phone] Allergies Allergen (clinical drug ingredient) Drug/Non Drug [...] 024 Encounters Encounter Location Date Provider Diagnosis [facility] [place] [address] 05/20/2024 Milli Yost Other hammer toe(s) (acquired), [...] Mahin JORGE GDOB:[birth year] (68 yo M)Acc No.[id number]:05/20/2024 PROGRESS NOTES Patient:?Mahin Jorge Madan Provider:?Milli Yost DPM :1955???Age:68 Y???Sex:Male Max e:05/20/2024 [facility] [place] Pcp:Blue Acosta MD Subjective: * Chief [...] Yost DPM Date:?03/2024 Generated for Navjot mccall/Janay/Kristy on:?02/27/2025 01:34 PM EDT History and Physical Notes * [...]
--- OUTSIDE RECORDS SUMMARY | 2025-02-27 13:35 | XMS_ITS | Patient Health Record ---
Author Organization Blue Acosta MD Address [address] [place], [place] [address] Care Team Providers Care Switch Adjuster Name Role Phone Blue Acosta Primary Care Provider [phone] Allergies Allergen (clinical drug ingredient) Drug/Non Drug Allergy documented on EMR Reaction Allergy Type Onset Date Status zolpidem ambien (uncoded) hallucinations Allergy Active amoxil (uncoded) rash Allergy Act dick Results Component Value Reference Range Notes Complete Blood Count Auto Di ff Reviewed date:03/27/2024 12:20:52 PM Interpretation: Performing Lab:[facility], [address] [place] [phone] Notes/Report: White Blood Count 8.7 4.8-10.8 X10*3/uL [...] PM Interpretation: Performing Lab:[facility], [address] [place] [phone] Notes/Report: Sodium 139 135-145 mmol/L Potassium 4.4 3.3-5.1 mmol/L Chloride 103 96-108 mmol/L Carbon Dioxide 28 22-29 mmol/L Anion Gap 12 12-20 Blood Urea Nitrogen 18 9-16 mg/dL Creatinine 0.95 0.5-1.4 mg/dL Estimated Glomerular Filt Rate > 60 NOTE: For -Omani individuals, multiply the result by 1.210. Chronic Kidney Disease: Estimated GFR < 60 mL/min/1.73m2 Severe Kidney Disease: Estimated GFR < 15 mL/min/1.73m2 Glucose Random 128 60-115 mg/dL Calcium 9.6 8.4-10.2 mg/dL Hemoglobin A1c Reviewed date:03/27/2024 12:04:26 PM Interpretation: Performing Lab:[facility], [address] [place] [phone] Notes/Report: Hemoglobin A1c % 5.8 <6.0 % [...] average glucose, using the formula of the M5O-Uokyobc Average Glucose study (ADAG), Diabetes Care, Vol.31,#8, 2007 Complete Blood Count Auto Di ff Reviewed date:07/03/2024 05:03:13 PM Interpretation: Performing Lab:[facility], [address] [place] [phone] Notes/Report: White Blood Count 8.5 4.8-10.8 X10*3/uL [...] NRBC Abs Auto 0.000 0.0-0.012 X10*3/uL Comprehensive [place]. Panel Fa st Reviewed date:07/03/2024 12:20:41 PM Interpretation: Performing Lab:[facility], [address] [place] [phone] Notes/Report: Sodium 140 135-145 mmol/L Potassium 4.2 3.3-5.1 mmol/L Chloride 105 96-108 mmol/L Carbon Dioxide 28 22-29 mmol/L Anion Gap 11 12-20 Blood Urea Nitrogen 16 9-16 mg/dL Creatinine 0.91 0.5-1.4 mg/dL Estimated Glomerular Filt Rate > 60 NOTE: For -Omani individuals, multiply the result by 1.210. Chronic [...] PM Interpretation: Performing Lab:[facility], [address] [place] [phone] Notes/Report: Triglycerides 103 <150 mg/dL Desirable Triglyceride: [...] PM Interpretation: Performing Lab:[facility], [address] [place] [phone] Notes/Report: PSA,Total (Free>4and<10) 0.31 0.00-4.00 ng/mL A [...] Random Reviewed date:07/03/2024 12:30:42 PM Interpretation: Performing Lab:[address] [phone] Notes/Report: Creatinine Urine 52.54 Microalbumin Urine < 5.0 Microalbum/Creatinine Ratio Ur TNP <30 ug/mg cr Unable to calculate albumin/creatinine ratio due to low microalbumin or creatinine result. Hemoglobin A1c Reviewed date:07/03/2024 12:16:31 PM Interpretation: Performing Lab:[address] [phone] Notes/Report: Hemoglobin A1c % 5.6 <6.0 % [...] average glucose, using the formula of the R7S-Vhwuabj Average Glucose study (ADAG), Diabetes Care, Vol.31,#8, May. 2007 UA ClnCatch+Micro w/rflx Cul t Reviewed date:07/03/2024 12:27:43 PM Interpretation: Performing Lab:[address] [phone] Notes/Report: Urine, Clean Catch Color Urine Yellow Appearance Urine Clear PH 5.5 5.0-9.0 Glucose Urine UA Negative Negative mg/dL Urine Blood Negative Negative Specific [place] - Urine 1.010 1.005-1.025 Urine Protein Negative Neg-Trace mg/dL Urine Ketones Negative Negative mg/dL Nitrite Urine Negative Negative Leukocyte Esterase Urine Negative Negative RBC Urine 0-2 0-2 /HPF WBC Urine 0-5 0-5 /HPF Squamous Epithelial Cell Urine 0-2 0-2 /HPF Bacteria Urine None Seen None Seen Hyaline Casts Urine 0-2 0-2 /LPF Liver Panel Reviewed date:01/02/2025 12:30:46 PM Interpretation: Performing Lab:[address] [phone] Notes/Report: Bilirubin Total 0.6 0.0-1.0 mg/dL Bilirubin Direct 0.3 0.0-0.5 mg/dL Aspartate Amino Transferase 29 5-37 U/L Alanine Aminotransferase 22 0-40 U/L Total Protein 7.6 6.5-8.0 g/dL Albumin Level 3.9 3.5-5.0 g/dL Alkaline Phosphatase 80 39-117 U/L Glucose Fasting Reviewed date:01/02/2025 12:30:54 PM Interpretation: Performing Lab:[address] [address] Notes/Report: Glucose Fasting 118 60-99 mg/dL A fasting glucose from 100-125 mg/dl is considered impaired (pre-diabetes). Lipid Panel with Reflex Reviewed date:01/02/2025 12:31:05 PM Interpretation: Performing Lab:[address] [phone] Notes/Report: Triglycerides 118 <150 mg/dL Desirable Triglyceride: [...] PM Interpretation: Performing Lab:[facility], [address] [place] [phone] Notes/Report: Hemoglobin A1c % 5.6 <6.0 % [...] average glucose, using the formula of the H6Q-Isnnlrj Average Glucose study (ADAG), Diabetes Care, Vol.31,#8, May. 2007 Electrocardiogram (EKG) Reviewed date:04/11/2024 08:01:33 AM Interpretation: Performing Lab: Notes/Report: Johnie Milner Reviewed date:03/27/2024 11:56:17 AM Interpretation: Performing Lab:[facility], [address] [place] [phone] Notes/Report: Johnie Milner See Note Specimen held untested for 24 hours; Call to request Chemistry testing. Johnie Minler Reviewed date:01/02/2025 12:23:00 PM Interpretation: Performing Lab:[facility], [address] [place] [phone] Notes/Report: Johnie Milner See Note Specimen held untested for 24 hours; Call to request Chemistry testing. Complete Blood Count Auto Di ff Reviewed date:01/06/2025 08:02:47 PM Interpretation: Performing Lab:[facility], [address] [place] [phone] Notes/Report: White Blood Count 12.8 4.8-10.8 X10*3/uL [...] PM Interpretation: Performing Lab:[facility], [address] [place] [phone] Notes/Report: Sodium 140 135-145 mmol/L Potassium 4.1 [...] Magnesium Reviewed date:01/06/2025 07:58:26 PM Interpretation: Performing Lab:[address] [phone] Notes/Report: Magnesium 1.8 1.6-2.6 mg/dL Lipase Reviewed date:01/06/2025 07:58:34 PM Interpretation: Performing Lab:[facility], [address] [place] [phone] Notes/Report: Lipase 23 8-78 U/L CT NG by PCR Reviewed date:01/07/2025 02:59:49 PM Interpretation: Performing Lab:[address] [phone] Notes/Report: Urine CT PCR NOT DETECTED Not [...] PM Interpretation: Performing Lab:[facility], [address] [place] [phone] Notes/Report: Urine, Clean Catch Color Urine Yellow Appearance Urine Clear PH 5.5 5.0-9.0 Glucose Urine UA Negative Negative mg/dL Urine Blood Negative Negative Specific [place] - Urine 1.015 1.005-1.025 Urine Protein Negative Neg-Trace mg/dL Urine Ketones Negative Negative mg/dL Nitrite Urine Negative Negative Leukocyte Esterase Urine Negative Negative CT abdomen pelvis wo con Reviewed date:01/06/2025 08:03:52 PM Interpretation: Performing Lab: Notes/Report: [address] [address] [address] Scan Report Signed Patient: Mahin Ambrocio MR#: [id number] 045 : 1955 Acct:[id number] Age/Sex: 69 / M ADM Date: 01/06/25 Loc: HO.ED Attending Dr: Ordering Physician: Cristina Birmingham Date of Service: 01/06/25 Procedure(s): CT abdomen pelvis wo IV con Accession Number(s): [id number] cc: Blue Acosta MD; Cristina Birmingham Report Number: [id number]: Total DLP = 1401.00 mGy-cm EXAMINATION: CT [...] 01/06/25 1414 DD/ 1310 TD/TT: 01/06/25 1402 Linter Saw Sharpener: [address] [address] [address] Scan Report Signed Patient: Ziyad Ambrocio in G MR#: [id number] 045 : 1955 Acct:[id number] Age/Sex: 69 / M ADM Date: 01/06/25 Loc: HO.ED Attending Dr: Ordering Physician: Cristina Birmingham Date of Service: 01/06/25 Procedure(s): CT abd omen pelvis wo IV con Accession Number(s): [id number] cc: Blue Acosta MD; Cristina Birmingham Report Number: [id number]: Total DLP = 1401.00 mGy-cm EXAMINATION: CT [...] 01/06/25 1414 DD/ 1310 TD/TT: 01/06/25 1402 Linter Saw Sharpener: US scrotum Reviewed date:01/07/2025 03:00:25 PM Interpretation: Performing Lab: Notes/Report: [address] [address] Ultrasound Report Signed Patient: Mahin Ambrocio MR#: [id number] 045 : 1955 Acct:[id number] Age/Sex: 69 / M ADM Date: 01/06/25 Loc: HO.ED Attending Dr: Ordering Physician: Omid Lopez MD Date of Service: 01/06/25 Procedure(s): US scrotum Accession Number(s): [id number] cc: Blue Acosta MD; Omid Lopez MD CLINICAL HISTORY: L testicular pain. Ultrasound scrotum. COMPARISON: None Technique: Real time sonographic imaging, including color-flow imaging, was performed by the food service sales representatives. Multiple sales representative electric service static images were saved for review. FINDINGS: [...] This document has been electronically signed by: Lvey Bonilla MD on 01/06/2025 18:16:24 Dictated By: Levy Bonilla MD Signed By: <Electronically signed by Levy Bonilla MD in OV> 01/07/25 0804 DD/ 15 TD/TT: 01/06/251815 Linter Saw Sharpener: [place] [address] Ultrasound Report Signed Patient: Ziyad Ambrocio MR#: [id number] 045 : 1955 Acct:[id number] Age/Sex: 69 / M ADM Date: 01/06/25 Loc: HO.ED Attending Dr: Ordering Physician: Omid Lopez MD Date of Service: 01/06/25 Procedure(s): US scrotum Accession Number(s): [id number] cc: Blue Acosta MD; Omid Lopez MD CLINICAL HISTORY: L testicular pain. Ultrasound scrotum. COMPARISON: None Technique: Real time sonographic imaging, including color-flow imaging, was performed by the food service sales representatives. Multiple sales representative electric service static images were saved for review. FINDINGS: [...] OV> 01/07/25 0804 DD/ 15 TD/TT: 01/06/251815 Linter Saw Sharpener: US scrotum doppler Reviewed date:01/06/2025 08:04:52 PM Interpretation: Performing Lab: Notes/Report: [place] [address] Ultrasound Report Signed Patient: Mahin Ambrocio MR#: [id number] 045 : 1955 Acct:[id number] Age/Sex: 69 / M ADM Date: 01/06/25 Loc: HO.ED Attending Dr: Ordering Physician: Louise Callejas Date of Service: 01/06/25 Procedure(s): US scrotum doppler Accession Number(s): [id number] cc: Blue Acosta MD; Louise Callejas CLINICAL HISTORY: L testicular pain. Ultrasound scrotum. COMPARISON: None Technique: Real time sonographic imaging, including color-flow imaging, was performed by the food service sales representatives. Multiple sales representative electric service static images were saved for review. FINDINGS: [...] in OV> 01/06/251815 DD/ 15 TD/TT: 01/06/251815 Linter Saw Sharpener: [place] [address] Ultrasound Report Signed Patient: Ziyad Ambrocio MR#: [id number] 045 : 1955 Acct:[id number] Age/Sex: 69 / M ADM Date: 01/06/25 Loc: HO.ED Attending Dr: Ordering Physician: Louise Callejas Date of Service: 01/06/25 Procedure(s): US scr otum doppler Accession Number(s): [id number] cc: Blue Acosta MD; Louise Callejas CLINICAL HISTORY: L testicular pain. Ultrasound scrotum. COMPARISON: None Technique: Real time sonographic imaging, including color-flow imaging, was performed by the food service sales representatives. Multiple sales representative electric service static images were saved for review. FINDINGS: [...] OV> 01/06/25 1816 DD/ 15 TD/TT: 01/06/251815 Linter Saw Sharpener: XR chest 2V Reviewed date:01/13/2025 02:56:25 PM Interpretation: Performing Lab: Notes/Report: [address] [address] XRay Report Signed Patient: Mahin Ambrocio MR#: [id number] 045 : 1955 Acct:[id number] Age/Sex: 69 / M ADM Date: 01/09/25 Loc: HO.XRAY Attending Dr: Blue Acosta MD Ordering Physician: Blue Acosta MD Date of Service: 01/09/25 Procedure(s): XR chest 2V Accession Number(s): [id number] cc: Blue Acosta MD EXAMINATION: XR CHEST [...] 01/09/25 1059 DD/ 1000 TD/TT: 01/09/25 1010 Linter Saw Sharpener: [address] [address] XRay Report Signed Patient: Ziyad Ambrocio MR#: [id number] 045 : 1955 Acct:[id number] Age/Sex: 69 / M ADM Date: 01/09/25 Loc: HO.XRAY Attending Dr: Blue Acosta MD Ordering Physician: Blue Acosta MD Date of Service: 01/09/25 Procedure(s): XR isaias st 2V Accession Number(s): [id number] cc: Blue Acosta MD EXAMINATION: XR CHEST [...] 01/09/25 1059 DD/ 1000 TD/TT: 01/09/25 1010 Linter Saw Sharpener: abdomen wo/w con Reviewed date:02/17/2025 04:48:05 PM Interpretation: Performing Lab: Notes/Report: [address] [address] Magnetic Resonance Report Signed Patient: Mahin Ambrocio MR#: [id number] 045 : 1955 Acct:[id number] Age/Sex: 69 / M ADM Date: 02/16/25 Loc: HO.MRI Attending Dr: Jamey Rojas MD Ordering Physician: Jamey Rojas MD Date of Service: 02/16/25 Procedure(s): MR abdomen wo/w con Accession Number(s): [id number] cc: Blue Acosta MD; Jamey Rojas MD CLINICAL HISTORY: N28.1 - Cyst of kidney, acquired MR abdomen with and without gadolinium Comparison: CT/AR/SR - CT ABDOMEN PELVIS WO IV CON [...] 02/17/25 1311 DD/ 1309 TD/TT: 02/17/25 1309 Linter Saw Sharpener: [place] [address] Magnetic Resonance Report Signed Patient: Ziyad Ambrocio MR#: [id number] 045 : 1955 Acct:[id number] Age/Sex: 69 / M ADM Date: 02/16/25 Loc: HO.MRI Attending Dr: Jamey Rojas MD Ordering Physician: Jamey Roajs MD Date of Service: 02/16/25 Procedure(s): MR abd omen wo/w con Accession Number(s): [id number] cc: Blue Acosta MD; Jamey Rojas MD CLINICAL HISTORY: N2 8.1 - Cyst of kidney, acquired MR abdomen with and without gadolinium Comparison: CT/AR/SR - CT ABDOMEN PELVIS WO IV CON [...] 02/17/25 1311 DD/ 1309 TD/TT: 02/17/25 1309 Linter Saw Sharpener: XR lumbar spine 4V min Reviewed date:02/23/2025 12:34:44 PM Interpretation: Performing Lab: Notes/Report: [facility] [address] [place] [address] Drive [address] [place] [address] XRay Report Signed Patient: Mahin Ambrocio MR#: [id number] 045 : 1955 Acct:[id number] Age/Sex: 69 / M ADM Date: 02/20/25 Loc: HO.HOSX Attending Dr: Simon Solano MD, PhD Ordering Physician: Simon Solano MD, PhD Date of Service: 02/20/25 Procedure(s): XR lumbar spine 4V min Accession Number(s): [id number] cc: Blue Acosta MD; Simon Solano MD, PhD CLINICAL HISTORY: M43.16 - Spondylolisthesis, lumbar region 4 views lumbar spine Comparison: CT/AR/SR - CT ABDOMEN PELVIS WO IV CON - 01/06/25 13:10 EDT Findings: Grade 1 anterolisthesis of L4 on L5 measuring 5 mm likely related to facet hypertrophy. This is unchanged on flexion-extension. Multilevel disc height loss with reactive endplate changes. Lower lumbar facet hypertrophy. No acute fractures or dislocation. Vascular calcium. IMPRESSION: Degenerative changes. Grade 1 spondylolisthesis of L4 on L5. No evidence of instability on flexion-extension. This document has been electronically signed by: Jenniffer Tinsley MD on 02/23/2025 08:22:07 Dictated By: Jenniffer Tinsley MD Signed By: <Electronically signed by Jenniffer Tinsley MD in OV> 02/23/25822 DD/ 1 TD/TT: 02/23/25821 Linter Saw Sharpener: [facility] [address] [facility] [place] [address] XRay Report Signed Patient: Ziyad Ambrocio in G MR#: [id number] 045 : 1955 Acct:[id number] Age/Sex: 69 / M ADM Date: 02/20/25 Loc: HO.HOSX Attending Dr: Richard Solano MD, PhD Ordering Physician: Simon Solano MD, PhD Date of Service: 02/20/25 Procedure(s): XR lum bar spine 4V min Accession Number(s): [id number] cc: Blue Acosta MD; Simon Solano MD, PhD CLINICAL HISTORY: M4 3.16 - Spondylolisthesis, lumbar region 4 views lumbar spine Comparison: CT/AR/SR - CT ABDOMEN PELVIS WO IV CON - 01/06/25 13:10 EDT Findings: Grade 1 anterolisthe sis of L4 on L5 measuring 5 mm likely related to facet hypertrophy. This is unchanged on flexion-extension. Multilevel disc heig ht loss with reactive endplate changes. Lower lumbar facet hypertrophy. No acute fractures o r dislocation. Vascular calcium. IMPRESSION: Degenerative changes . Grade 1 spondylolisthesis of L4 on L5. No evidence of instability on flexion-extension. This document has be en electronically signed by: Jenniffer Tinsley MD on 02/23/2025 08:22:07 Dictated By: Jenniffer Tinsley MD Signed By: <Electronically signed by Jenniffer Tinsley MD in OV> 02/23/25822 DD/ 1 TD/TT: 02/23/25821 Linter Saw Sharpener: Reason For Referral No Information Medications Medication [...] HCl 10 MG 1 tablet at be [facility] as needed Orally Once a day Active [...] Administered pt was given the vaccine at [facility] on [facility]. Fluarix Quadrivalent IM Intramuscular 06/24/2018 Administe red [...] Problem Status W/U Status Risk Notes Problem 630647672 Diverticulitis (K57.92) Active confirmed Problem 045433304 Mixed hyperlipidemia (E78.2) Active confirmed Problem 074702786 Paroxysmal atria l fibrillation (I48.0) Active confirmed Problem 37328257 Atherosclerosis of aorta (I70.0) Active confirmed Problem 81316190692870726 Acute recurren t frontal sinusitis (J01.11) Active confirmed Problem 457375535 Angina effort (I20.8) Active confirmed Problem 828183138 Lumbar disc disease (M51.9) Active confirmed Problem 328280667 Tubular adenoma of colon (D12.6) Active confirmed Problem 50044192 Essential hypertension (I10) Active confirmed Problem 0704582 Prediabetes (R73.09) Active confirmed Problem 795975591 Morbid obesity d ue to excess calories (E66.01) Active confirmed Problem 257371426 Cervical disc disease (M50.90) Active confirmed Problem 917281837 Hammertoe of lef t foot (M20.42) Active confirmed Vital Signs Blood pressure diastolic 80 mm Hg 01/09/2025 eliezer ght is down 6 pounds since 07-10-24 Height 73 in 01/09/2025 weight is down 6 pounds since 07-10-24 Blood pressure systolic 158 mm Hg 01/09/2025 eliezerg ht is down 6 pounds since 07-10-24 Weight 338 lbs 01/09/2025 weight is down 6 pounds since 07-10-24 BMI 44.59 kg/m2 01/09/2025 weight is down 6 pounds since 07-10-24 Encounters Encounter Location Date Provider Diagnosis Blue Acosta MD [address] [place] [id number] 03/27/2024 Blue Acosta Essential hypertensi on I10 ; Prediabetes R73.09 and Preoperative clearance Z01.818 Blue Acosta MD [address] [place] [id number] 07/03/2024 Blue Acosta Mixed hyperlipidemia E78.2 ; Encounter for immunization Z23 ; Essential hypertension I10 and Prediabetes R73.09 Blue Acosta MD [address] [place] [address] [address] [place] [id number] 01/02/2025 Blue Acosta Mixed hyperlipidemia E78.2 and Prediabetes R73.09 Blue Acosta MD [address] [place] [id number] 04/08/2024 Blue Acosta Pre-op evaluation Z01.818 and Hammertoe of left foot M20.42 Blue Acosta MD [address] [place] [id number] 07/10/2024 Blue Acosta Essential hypertensi on I10 ; Prediabetes R73.09 ; Morbid obesity due to excess calories E66.01 ; Guaiac positive stools R19.5 ; Mixed hyperlipidemia E78.2 ; Colon cancer screening Z12.11 ; Depression screening Z13.31 and Paroxysmal atrial fibrillation I48.0 Blue Acosta MD [address] [place] [id number] 01/09/2025 Blue Acosta Pleural effusion J90 ; Lumbar disc disease with radiculopathy M51.16 ; Foot drop, left M21.372 ; Prediabetes R73.09 and Mixed hyperlipidemia E78.2 Blue Acosta MD [address] [place] [id number] 04/11/2024 Blue Acosta MD [address] [place] [id number] 01/08/2025 Blue Acosta MD [address] [place] [id number] 01/12/2025 Blue Acosta MD [address] [place] [id number] 01/13/2025 Blue Acosta Pleural effusion J90 Assessments [...] Provider Name:Blue Arechiga ier, 07/10/2025 07:00:00 AM, [address] [place] [address], [address], [phone], Provider Name:Blue Arechiga ier, 07/16/2025 08:00:00 AM, [address] [place] [address], [place] [address], [place], [place], [phone], Insurance Providers Payer Name Payer Address Payer Phone Subscriber Number Group Number Insured Name Patient Relationship to Insured Coverage Start Date Coverage End Date [employer] [address] [place] [address] [id number] Mahin Ambrocio Self - patient is the insured [facility] [address] [place] [address] [id number] Mahin Ambrocio Self - patient is the insured Medical (General) History Medical History History ICD Code colonoscopy 04/2012 for recta l bleeding due in 10 years; Colonoscopy done 10/27/[address] Sanchez - repeat 5 years
--- OUTSIDE RECORDS SUMMARY | 2025-02-27 13:35 | XMS_ITS ---
Author [facility] Address [address] [place] [address] Care Team Providers Care Professor Of Education Name Role Phone Blue Acosta MD Primary Care Provider Milli Jimenez Unavailable [phone] Allergies Allergen (clinical drug ingredient) Drug/Non Drug [...] 024 Encounters Encounter Location Date Provider Diagnosis [facility] [place] [address] [place] [address] 04/29/2024 Milli Yost Other hammer toe(s) (acquired), [...] Mahin JORGE GDOB:[birth year] (68 yo M)Acc No.[id number]:04/29/2024 Progress Notes Patient:?Mahin Jorge Provider:?Milli Yost DPM :1955???Age:68 Y???Sex:Male Max e:04/29/2024 Address:[address] [place], [place] [phone] Pcp:Blue Acosta MD Subjective: * Chief Complaints: [...] , a light compressive dressing.? * Procedure Codes:?77562 X-RAY EXAM OF LEFT FOOT 3V, Modifiers: [...] Yost DPM Date:? Generated for Navjot mccall/Janay/eTransmitting on:?02/27/2025 01:34 PM EDT History and Physical [...]
--- OUTSIDE RECORDS SUMMARY | 2025-02-27 13:35 | XMS_ITS ---
Author Organization [facility] Address [address] [address] Care Team Providers Care Rn Neonatal Icu Name Role Phone Blue Acosta MD Primary Care Provider Milli Jimenez Unavailable [phone] Allergies Allergen (clinical drug ingredient) Drug/Non Drug [...] 024 Encounters Encounter Location Date Provider Diagnosis [facility] [place] [address] [place] [address] 05/06/2024 Milli Yost Other hammer toe(s) (acquired), [...] Topical: bacitacin applied Removal of: sutures performed [facility] sterile forceps/suture scissors or #15 blade, area cleaned with alcohol prior to removal Progress Notes * Mahin JORGE GDOB:[birth year] (68 yo M)Acc No.[id number]:05/06/2024 Progress Notes Patient:?Mahin Jorge Madan Provider:?Milli Yost DPM :1955???Age:68 Y???Sex:Male Max e:05/06/2024 [facility] Pcp:Blue Acosta MD Subjective: * Chief [...] with alcohol prior to removal.? * Procedure Codes:?26083 X-RAY EXAM OF LEFT FOOT 3V, Modifiers: [...] Yost DPM Date:? Generated for Navjot mccall/Janay/Kristy on:?02/27/2025 01:35 PM EDT History and Physical Notes * [...]
--- OUTSIDE RECORDS SUMMARY | 2025-02-27 13:35 | XMS_ITS ---
Author Organization Blue Acosta MD Address [address] [place] [phone] Care Team Providers Care Bumper And Painter Name Role Phone Blue Acosta Primary Care Provider REASON FOR VISIT MRI order Encounters Encounter Location Date Provider Diagnosis Blue Acosta MD [address] [facility] [address] [place], [place] [phone] 01/12/2025 Blue Acosta Plan Of Treatment Next Appt Details Provider Name:Blue Arechiga ier, 07/10/2025 07:00:00 AM, [address] [place] [address], [address] [facility], [place], [place], [phone], Provider Name:Blue Arechiga ier, 07/16/2025 08:00:00 AM, [address] [place] [address], [address] [place] [address], [phone], Progress Notes * Mahin JORGE GDOB:[birth year] (69 yo M)Acc No.[id number]:01/12/2025 Patient:?Mahin JORGE :1955???Age:69 Y???Sex:Male Address:[address] [place] [id number] * true * Date:? Generated for Printi ng/Favidyag/eTransmitting on:?02/27/2025 01:34 PM EDT
--- NOTE | 2025-02-27 13:45 | HO.NEPHOV_ITS ---
Vital Signs 02/27/25 13:47 Height 6 ft 3 in Weight 333 lb 6 oz BMI 41.7 BP 110/70 Blood Pressure Location Rt brachial Position Sitting Pulse 73 Pulse Source Pulse Oximeter Pulse Oximetry (%) 97 Oxygen Delivery Method Room Air Intake Visit Reasons: 1 MO FU-LVM Academic Affairs Vice President Required: No Accompanied by: Self / Same As Patient Allergies grass pollen-jacoby, standard [Grass Pollen-Jacoby,Std] Allergy (Mild, Verified 02/27/25 13:47) Unknown pollen extracts [POLLEN] Allergy (Mild, Verified 02/27/25 13:47) Unknown zolpidem [Ambien] Allergy (Unknown, Verified 02/27/25 13:47) Unknown house dust Allergy (Verified 02/27/25:47) Unknown environmental allergies Adverse Reaction (Verified 02/27/25:47) Sinus Inflammation HPI Comments Details: I had the pleasure of seeing Mahin in follow up for a 3.3 cm exophytic cystic lesion on the posterior mid portion right kidney which was detected incidentally on a CT scan done for flank pain. He does not have any night sweats, weight loss, hematuria. He has not passed any renal calculi. He has no DVTs. He is known to have hypertension which is well controlled on his current medication regimen. He has no family history of any renal cysts, PKD, ESRD or renal transplantation. He does not have any recurrent UTI but recently had epididymitis. His renal functions have been normal. He did not have any systemic complaints at the time of this office visit. [facility] Medical History Bleeding hemorrhoids HTN (hypertension) Acute knee pain PAF (paroxysmal atrial fibrillation) Surgical History Hx of foot surgery History of tonsillectomy and adenoidectomy History of deviated nasal septum Hx of cholecystectomy History of mandibular surgery Family History Father CVD (cardiovascular disease) Mother No problems noted. Social History Alcohol intake: never Patient Tobacco Use Status: Never used Tobacco Current occupational status: retired Review of Systems Const All systems reviewed & are unremarkable except as noted in HPI and below Physical Exam Vital Signs: Last Vital Signs Pulse 73 02/27/25 13:47 BP 110/70 02/27/25 13:47 Pulse Ox 97 02/27/25 13:47 Oxygen Delivery Method Room Air 02/27/25 13:47 BMI result Body Mass Index 41.7 Const General: comfortable and no acute distress Orientation/consciousness: patient oriented x3 HEENT Head: Yes normocephalic Mouth: Normal oral and palatal mucosa present Eyes EOM: EOMs intact bilaterally Neck Neck: Yes supple Resp Auscultation: clear to auscultation bilaterally Cardio Jugular venous distension: no JVD Rate: regular rate GI Palpation (GI): Soft to palpation Auscultation: normal bowel sounds General: Yes no CVA tenderness Back/Spine/Pelvis Back: no CVA tenderness Skin General skin exam: no rashes or lesions noted Neuro General: patient oriented x3 and moves all extremities Extrem General: Yes no pedal edema Results Reviewed Nephrology Results: No Data to Display Assessment & Plan Assessment & Plan (1) HTN (hypertension): Code(s): I10 - Essential (primary) hypertension Category: Medical Qualifiers: Hypertension type: primary hypertension Qualified Code(s): I10 - Essential (primary) hypertension (2) Renal cyst: Code(s): N28.1 - Cyst of kidney, acquired Category: Medical Plan Mahin was found to have incidental complex renal cyst when he underwent CT scan for flank pain. He does not have hematuria, weight loss, night sweats. His renal functions are normal. He has no family history of renal cysts, ESRD or renal transplantation. He has hypertension which is well controlled on his current medication regimen. His MR abdomen showed several benign nonenhancing cysts in the right kidney the largest is seen in the midpole measuring up to 3.4 cm in greatest diameter. There are no septations or solid components. One or 2 tiny cysts are seen in the left kidney.He maintains good hydration and does not take any excessive nonsteroidal anti-inflammatories. I would not make any medication changes. All his questions and concerns were addressed. Follow-up appointment given. Orders: Orders Creatinine 1 Year I10 - Essential (primary) hypertension, N28.1 - Cyst of kidney, acquired Blood Urea Nitrogen 1 Year I10 - Essential (primary) hypertension, N28.1 - Cyst of kidney, acquired Electrolytes 1 Year I10 - Essential (primary) hypertension, N28.1 - Cyst of kidney, acquired Protein Creatinine Ratio, Ur 1 Year I10 - Essential (primary) hypertension, N28.1 - Cyst of kidney, acquired Coding Level of Care Code Est Pt Level 4 (52327) Diagnoses Primary hypertension I10 Hypertension type: primary hypertension Renal cyst N28.1
[2025-02-27 13:47] VITALS: BP 110/70; PULSE 73; O2SAT 97; BMI 41.7
== END 2025-02-27 14:13 | disposition home or self-care (01) ==
PROVIDERS: PCP Internal Medicine; Visit Provider Internal Medicine Nephrology
DX: I10 Essential (primary) hypertension (principal); N28.1 Cyst of kidney, acquired
CPT/HCPCS: 99214

== ENCOUNTER → 2025-02-27 13:32 | Outpatient (BNVA) | payer MEDICARE, OTHER, SELFPAY | PROVIDERS: PCP Internal Medicine; Visit Provider Internal Medicine Nephrology | DX: I10 Essential (primary) hypertension (principal); N28.1 Cyst of kidney, acquired | CPT/HCPCS: 99212 ==

== ENCOUNTER 2025-03-13 10:20 | Outpatient (AMB) | payer MEDICARE, OTHER, SELFPAY ==
--- NOTE | 2025-03-13 10:43 | A.OFFVIS_ITS ---
Intake Visit Reasons: epididymitis Intake Note: Patient is present for EPIDIDYMITIS Urology Medication:NONE Antibiotic Allergy:NONE Blood Thinner:RIVAROXABAN Senior Microsoft Consultant Required: No Allergies zolpidem (Ambien) Allergy (Severe, Verified 03/30/25 12:26) Unknown environmental allergies Adverse Reaction (Intermediate, Verified 03/26/25 13:56) Sinus Inflammation HPI Comments Details: Mahin is a pleasant male. He is a patient of Dr Li. He is seen for the following urologic issues - lower urinary tract symptoms Lower urinary tract symptoms Progressive weakness of stream Nocturia x3 No prior medications Trial alfuzosin Bladder ultrasound [facility] Medical History (Updated 03/26/25 @ 14:11 by Cristina Mosqueda RN) Renal cyst Bleeding hemorrhoids HTN (hypertension) PAF (paroxysmal atrial fibrillation) Surgical History (Updated 03/26/25 @ 14:10 by Cristina Mosqueda RN) Hx of endoscopic retrograde cholangiopancreatography H/O colonoscopy Hx of foot surgery History of tonsillectomy and adenoidectomy History of deviated nasal septum Hx of cholecystectomy History of mandibular surgery Family History Father CVD (cardiovascular disease) Mother No problems noted. Social History Alcohol intake: never Patient Tobacco Use Status: Never used Tobacco Use of substances other than those prescribed or required for medical reasons: No Are you DNR?: No Advance Directives: No Advance Directives Information Provided: Yes Poor oral hygiene: No Current occupational status: retired Review of Systems Const Denies chills and Denies fever(s) Card Reports no additional complaints and Denies syncope Resp Denies cough GI Denies abdominal pain and Denies heartburn Reports as per HPI and Denies change in libido Neuro Denies syncope Psych Denies change in libido Endo Denies change in libido Physical Exam Const General: cooperative, healthy appearing, comfortable and no acute distress Orientation/consciousness: patient oriented x3 HEENT Face and sinus: Yes normal facial exam Mouth: moist mucous membranes Neck Neck: Yes normal visual inspection, Yes full ROM and Yes trachea midline Chest Chest palpation & inspection: normal inspection of the chest Resp Effort & Inspection: normal respiratory effort, able to speak in complete sentences and no respiratory distress GI Inspection: Yes normal to inspection Back/Spine/Pelvis Cervical Spine: normal cervical lordosis Thoracic/Lumbar Spine: thoracic and lumbar spine normal to inspection Skin General skin exam: no rashes or lesions noted Neuro General: patient oriented x3, gait normal, tone normal and moves all extremities Extrem General: Yes normal to inspection and Yes capillary refill normal Assessment & Plan Assessment & Plan (1) Bladder outlet obstruction: Code(s): N32.0 - Bladder-neck obstruction Category: Medical Plan Trial medications Imaging Orders: Orders US bladder 03/13/25 N32.0 - Bladder-neck obstruction AMB Urinalysis Automated 03/13/25 Z13.9 - Encounter for screening, unspecified Medications: New alfuzosin ER 10 mg PO DAILY 30 tabs 2RF 30 days N32.0 - Bladder-neck obstruction Patient Instructions: This note is constructed using voice recognition software. While every effort has been made to ensure accuracy supervisor gelatin plant errors may have been included. Imaging studies, laboratory and physical exam results were discussed and reviewed in detail. No major barriers to patient understanding were identified. An opportunity to ask questions regarding the treatment plan was provided. All questions were answered. The patient expressed understanding and agreement with the above treatment plan. The patient is aware they should contact our office by phone for worsening of their current condition or the appearance of new urologic symptoms. Compliance is encouraged with any medications and followup testing that is ordered. It is a privilege to participate in the urologic care of your patient. If you have any questions or concerns regarding treatment for the above conditions, or other urologic issues, please do not hesitate to contact me. The office telephone contact is [phone]. Sincerely, Dr Don Aj MD, [facility] - Urology Compassionate Specialist Care for the Genitourinary System Coding Level of Care Code New Pt Level 4 (46159) Diagnoses Bladder outlet obstruction N32.0
--- OUTSIDE RECORDS SUMMARY | 2025-03-13 10:59 | XMS_ITS ---
Author Organization Blue Acosta MD Address [address] [place], [place] [id number] Care Team Providers Care Rubber Block Layer Name Role Phone Blue Acosta Primary Care [...] kg/m2 01/09/2025 weight is down 6 pounds [facility] e 07-10-24 Encounters Encounter Location Date Provider Diagnosis Blue Acosta MD [address] [place] [address] [address] [place], [place] [phone] 01/09/2025 Blue Acosta Pleural effusion J90 ; [...] testing, THE ORDER HAS BEEN FAXED TO [facility] FOR SCHEDULING 01/09/2025 Foot drop, left (ICD-10 [...] testing, THE ORDER HAS BEEN FAXED TO [facility] FOR SCHEDULING Foot drop, left [...] 07:00:00 AM, [address], [address], [place], [place], [id number], Provider Name:Blue Arechiga ier, 07/16/2025 08:00:00 AM, [address], [address], [place], [place], [id number], Progress Notes * Kyrie JORGE GDOB:[birth year] (69 yo M)Acc No.[id number]:01/09/2025 Progress Notes Patient:?Kyrie JORGE G Provider:?Bule Acosta MD :1955???Age:69 Y???Sex:Male Max e:01/09/2025 Address:[address] [place], [place] [phone] Subjective: * Chief Complaints: * ???6 MO [...] testing, THE ORDER HAS BEEN FAXED TO [facility] FOR SCHEDULING?? 3.?Foot drop, left?Imaging: MRI [...] MD Date:?0 01/09/2025 Generated for Printi ng/Favidyag/eTransmitting on:?03/13/2025 10:59 AM EDT History and Physical Notes * [...]
== END 2025-03-13 11:36 | disposition home or self-care (01) ==
LOC: HO.HUSH 10:21
PROVIDERS: PCP Internal Medicine; Visit Provider Urology
DX: N32.0 Bladder-neck obstruction (principal)
CPT/HCPCS: 99204

== ENCOUNTER → 2025-03-13 10:20 | Outpatient (BNVA) | payer MEDICARE, OTHER, SELFPAY | PROVIDERS: PCP Internal Medicine; Visit Provider Urology | DX: N32.0 Bladder-neck obstruction (principal) | CPT/HCPCS: 99202 ==

== ENCOUNTER 2025-03-30 11:30 | Day surgery (SDC) | payer MEDICARE, OTHER, SELFPAY ==
--- OUTSIDE RECORDS SUMMARY | 2025-02-12 07:59 | XMS_ITS ---
Author Organization [facility] Address [address] [place] [address] Care Team Providers Care Ocean Import Representative Name Role Phone Blue Acosta MD Primary Care Provider Milli Jimenez Unavailable [phone] Allergies Allergen (clinical drug ingredient) Drug/Non Drug [...] 024 Encounters Encounter Location Date Provider Diagnosis [facility] [address] [place] [address] 05/20/2024 Milli oYst Other hammer toe(s) (acquired), left foot M20.42 [...] Mahin JORGE GDOB:[birth year] (68 yo M)Acc No.[id number]:05/20/2024 PROGRESS NOTES Patient:?Mahin Jorge Madan Provider:?Milli Yost DPM :1955???Age:68 Y???Sex:Male Max e:05/20/2024 [facility] [place] Pcp:Blue Acosta MD Subjective: * Chief [...] Yost DPM Date:?03/2024 Generated for Navjot mccall/Janay/Kristy on:?02/12/2025 07:59 AM EDT History and Physical Notes * [...]
--- OUTSIDE RECORDS SUMMARY | 2025-02-12 07:59 | XMS_ITS | Patient Health Record ---
Author Organization [facility] Address [address] [place] [address] Care Team Providers Care Fnp Name Role Phone Blue Acosta MD Primary Care Provider Milli Jimenez Unavailable [phone] Allergies Allergen (clinical drug ingredient) Drug/Non Drug [...] W/U Status Risk Notes Problem Tinea unguium (378197905) Tinea unguium (B35.1) Active confirmed Problem Acquired hammer toe of left foot (3305232310301959 ) Other hammer toe(s) (acquired), left foot (M20.42) Active confirmed Problem Localized, primary osteoarthritis of the ankle and/or foot (690028432) Arthritis of joint of lesser toe, left [...] Diagnosis Surgery [facility] [address] [place] [address] 04/23/2024 Milli Schulza [facility] [address] [place] [address] 04/10/2024 Milli Peric[place] Pain in left toe(s) M79.675 ; Other hammer toe(s) (acquired), left foot M20.42 and Exostosis of toe M89.8X7 [address] [address] 04/29/2024 Milli Perica Other hammer toe(s) (acquired), left foot M20.42 and Exostosis of toe M89.8X7 [address] [address] 05/06/2024 Milli Perica Other hammer toe(s) (acquired), left foot M20.42 and Exostosis of toe M89.8X7 [address] [address] 05/20/2024 Milli Perica Other hammer toe(s) (acquired), left foot M20.42 and Exostosis of toe M89.8X7 [address] [address] 04/23/2024 Milli Perica [address] [address] 04/24/2024 Milli Yost Assessments Encounter Date Diagnosis [...] X ray : Foot, left 3V 05/06/2024 89379-PXXZHMD NAIL, 1-5 08/17/2023 79125-SDSNDUP NAIL, 1-5 03/31/2016 40317- Debride <25 sq cm 09/02/2013 62129- Debride <25 sq cm 08/17/2023 19253-KQKFXNL SKIN/TISSUE 07/07/2013 39458-URWBENW SKIN/TISSUE 07/22/2013 49753-YZGEBWQ SKIN/TISSUE 08/12/2013 Insurance Providers Payer Name Payer Address Payer Phone Subscriber Number Group Number Insured Name Patient Relationship to Insured Coverage Start Date Coverage End Date Medicare National [employer]t [employer] [address] [place] [address] [id number] Mahin Ha Self - patient is the insured [employer] [address] [place] [address] [id number] Mahin Ha Self - patient is [...]
--- OUTSIDE RECORDS SUMMARY | 2025-02-12 07:59 | XMS_ITS ---
Author Organization [facility] Address [address] [facility] [place] [address] Care Team Providers Care Obstetrical Nurse Name Role Phone Blue Acosta MD Primary Care Provider Milli Jimenez Unavailable [phone] Allergies Allergen (clinical drug ingredient) Drug/Non Drug [...] 024 Encounters Encounter Location Date Provider Diagnosis [facility] [address] [place] [address] 05/06/2024 Milli Yost Other hammer toe(s) (acquired), [...] Topical: bacitacin applied Removal of: sutures performed [facility] sterile forceps/suture scissors or #15 blade, area cleaned with alcohol prior to removal Progress Notes * Mahin JORGE GDOB:[birth year] (68 yo M)Acc No.[id number]:05/06/2024 Progress Notes Patient:?Mahin Jorge Madan Provider:?Milli Yost DPM :1955???Age:68 Y???Sex:Male Max e:05/06/2024 [facility] Pcp:Blue Acosta MD Subjective: * [...] with alcohol prior to removal.? * Procedure Codes:?87891 X-RAY EXAM OF LEFT FOOT 3V, Modifiers: [...] Yost DPM Date:? Generated for Navjot mccall/Janay/Kristy on:?02/12/2025 07:59 AM [...]
--- OUTSIDE RECORDS SUMMARY | 2025-02-12 07:59 | XMS_ITS ---
Author Organization [facility] Address [address] [place] [address] Care Team Providers Care Structural Engineering Drafting Officer Name Role Phone Blue Acosta MD Primary Care Provider Milli Jimenez Unavailable [phone] Allergies Allergen (clinical drug ingredient) Drug/Non Drug [...] 024 Encounters Encounter Location Date Provider Diagnosis [facility] [address] [place] [address] 04/29/2024 Milli Yost Other hammer toe(s) (acquired), [...] Mahin JORGE GDOB:[birth year] (68 yo M)Acc No.[id number]:04/29/2024 Progress Notes Patient:?Mahin Jorge Provider:?Milli Yost DPM :1955???Age:68 Y???Sex:Male Max e:04/29/2024 Address:[address] [place], [place] [address] Pcp:Blue Acosta MD Subjective: * Chief Complaints: [...] , a light compressive dressing.? * Procedure Codes:?05921 X-RAY EXAM OF LEFT FOOT 3V, Modifiers: [...] Yost DPM Date:? Generated for Navjot mccall/Janay/eTransmitting on:?02/12/2025 07:59 AM EDT History and Physical [...]
[2025-03-26 14:05] VITALS: BMI 41.7
--- NOTE | 2025-03-27 13:19 | P.CONAN_ITS ---
Documented by User: Megan Coffman NP 03/27/25 13:22 HPI - Anesthesia Eval Consult details Narrative: 69yo M for Colonoscopy Follows [facility] Cardiology. Optimized to proceed with colo per 01/2025 office visit. Xarelto for afib PMFSH Active Problems Active Problems: All Active Problems Bladder outlet obstruction (Acute) Renal cyst (Acute) Spondylolisthesis, lumbar region (Acute) Diastolic dysfunction (Acute) Complex renal cyst (Acute) Left flank pain (Acute) Left low back pain (Acute) Acute bacterial sinusitis (Acute) Acute posterior anal fissure (Acute) Patellofemoral arthritis of right knee (Acute) Knee pain (Acute) Bleeding hemorrhoids (Acute) HTN (hypertension) (Acute) PAF (paroxysmal atrial fibrillation) (Acute) Past Medical History Medical History (Updated 03/26/25 @ 14:11 by Cristina Mosqueda RN) Renal cyst Bleeding hemorrhoids HTN (hypertension) PAF (paroxysmal atrial fibrillation) Family History Family History Father CVD (cardiovascular disease) Mother No problems noted. Surgical History Surgical History (Updated 03/26/25 @ 14:10 by Cristina Mosqueda RN) Hx of endoscopic retrograde cholangiopancreatography H/O colonoscopy Hx of foot surgery History of tonsillectomy and adenoidectomy History of deviated nasal septum Hx of cholecystectomy History of mandibular surgery Social History Social History Alcohol intake: never Patient Tobacco Use Status: Never used Tobacco Use of substances other than those prescribed or required for medical reasons: No Are you DNR?: No Advance Directives: No Advance Directives Information Provided: Yes Poor oral hygiene: No Current occupational status: retired Meds Allergies Allergy/AdvReac Type Severity Reaction Status Date / Time zolpidem [Ambien] Allergy Severe Unknown Verified 03/30/25 12:26 environmental allergies AdvReac Intermediate Sinus Verified 03/26/25 13:56 Inflammation Home Medications ?Medication ?Instructions ?Recorded ?Confirmed ?Last Taken ?Type metoprolol succinate 50 mg 50 mg PO DAILY 03/22/21 03/26/25 Unknown History tablet,extended release 24 hr triamcinolone acetonide 0.5 % 1 appl topical DAILY 03/22/21 03/26/25 Unknown History topical cream atorvastatin 20 mg tablet 20 mg PO DAILY 07/11/21 03/26/25 Unknown History multivitamin 1 tab PO DAILY 12/11/22 03/26/25 Unknown History lisinopril 20 mg tablet 20 mg PO DAILY 01/30/23 03/26/25 Unknown History gabapentin 300 mg capsule 600 mg PO BEDTIME 01/30/25 03/26/25 Unknown History tramadol 50 mg tablet 50 mg PO BEDTIME PRN Pain 01/30/25 03/26/25 Unknown History celecoxib 200 mg capsule (Celebrex) 200 mg PO DAILY 02/03/25 03/26/25 03/26/25 History Exam Height,Weight and Vital Signs: Height 6 ft 3 in Weight 151.216 kg Pertinent Lab Results Pertinent Lab Results: Laboratory Tests 01/06/25 13:00 WBC 12.8 H Hgb 13.2 L Hct 39.8 L Plt Count 187 Sodium 140 Potassium 4.1 Chloride 111 H Carbon Dioxide 22 BUN 24 H Creatinine 0.85 Narrative Narrative: EKG 01/2025 Details: EKG shows normal sinus rhythm with LVH with QRS widening, unchanged from before. Assessment and Plan Assessment Anesthesia Assessment: Chart Reviewed Documented by User: Nuris Ventura MD 03/30/25 13:43 [facility] Past Medical History Medical History (Updated 03/26/25 @ 14:11 by Cristina Mosqueda RN) Renal cyst Bleeding hemorrhoids HTN (hypertension) PAF (paroxysmal atrial fibrillation) Family History Family History Father CVD (cardiovascular disease) Mother No problems noted. Family history of problems with anesthesia: No Surgical History Surgical History (Updated 03/26/25 @ 14:10 by Cristina Mosqueda RN) Hx of endoscopic retrograde cholangiopancreatography H/O colonoscopy Hx of foot surgery History of tonsillectomy and adenoidectomy History of deviated nasal septum Hx of cholecystectomy History of mandibular surgery History of Problems with Anesthesia: No Social History Social History Alcohol intake: never Patient Tobacco Use Status: Never used Tobacco Use of substances other than those prescribed or required for medical reasons: No Are you DNR?: No Advance Directives: No Advance Directives Information Provided: Yes Poor oral hygiene: No Current occupational status: retired Meds Allergies Allergy/AdvReac Type Severity Reaction Status Date / Time zolpidem [Ambien] Allergy Severe Unknown Verified 03/30/25 12:26 environmental allergies AdvReac Intermediate Sinus Verified 03/26/25 13:56 Inflammation Home Medications ?Medication ?Instructions ?Recorded ?Confirmed ?Last Taken ?Type metoprolol succinate 50 mg 50 mg PO DAILY 03/22/21 03/26/25 Unknown History tablet,extended release 24 hr triamcinolone acetonide 0.5 % 1 appl topical DAILY 03/22/21 03/26/25 Unknown History topical cream atorvastatin 20 mg tablet 20 mg PO DAILY 07/11/21 03/26/25 Unknown History multivitamin 1 tab PO DAILY 12/11/22 03/26/25 Unknown History lisinopril 20 mg tablet 20 mg PO DAILY 01/30/23 03/26/25 Unknown History gabapentin 300 mg capsule 600 mg PO BEDTIME 01/30/25 03/26/25 Unknown History tramadol 50 mg tablet 50 mg PO BEDTIME PRN Pain 01/30/25 03/26/25 Unknown History celecoxib 200 mg capsule (Celebrex) 200 mg PO DAILY 02/03/25 03/26/25 03/26/25 History Exam Airway Mallampati Class: III TM Dist: >3cm Neck ROM: Full Assessment and Plan Assessment Anesthesia Assessment: Anesthesia Plan Discussed Final Anesthetic Review Family History of Problems with Anesthesia: No History of Problems with Anesthesia: No NPO: Yes ASA Class: III Final Preanesthetic Review: No Changes in Pt Med Stat, Meds/Allgs Chart Reviewed, Consent Obtained/Reviewed and Anes Risks/Benef Reviewed Patient Risk: Intermediate Procedure Risk: Low Anesthetic Plan Anesthetic Plan: TIVA Disposition: Standard PACU
[2025-03-30 12:28] VITALS: BMI 40.9
[2025-03-30 12:35] VITALS: BP 178/90; PULSE 66; RESP 16; TEMP 36.1; O2SAT 97
[2025-03-30] MEDS: Lactated Ringers 1,000 ML 100 ML IVCONT (12:51)
[2025-03-30 14:30] VITALS: BP 131/70; PULSE 62; RESP 17; TEMP 36.2; O2SAT 96
--- NOTE | 2025-03-30 14:35 | P.BOP_ITS ---
Brief Operative Note Date of Service: 03/30/25 Pre-op diagnosis: Screening Post-op diagnosis: other (Diverticulosis) Procedure: Colonoscopy to the cecum and TI Surgeon: Corby Sanchez MD Anesthesia: MAC Was an Technical Support Director used for this Procedure?: No Estimated blood loss (mL): 0 Pathology: none sent Condition: stable Disposition: PACU
[2025-03-30 14:45] VITALS: BP 119/73; PULSE 56; RESP 18; TEMP 36.2; O2SAT 97
--- NOTE | 2025-03-30 23:38 | OP_ITS ---
DATE OF SERVICE: 03/30/2025 SURGEON: Corby Sanchez MD INDICATIONS: The patient presents for evaluation of colorectal cancer screening and personal history of a serrated adenoma of the colon. Full consent has been obtained from him for this, including risks of bleeding and perforation. PREOPERATIVE DIAGNOSIS: POSTOPERATIVE DIAGNOSIS: PROCEDURE PERFORMED: Colonoscopy to the cecum and terminal ileum. ESTIMATED BLOOD LOSS: COMPLICATIONS: ANESTHESIA: Medication used, monitored anesthesia care. ASSISTANTS: SPECIMENS: PREOPERATIVE DIAGNOSES: Personal history of serrated adenoma of the colon and colorectal cancer screening. POSTOPERATIVE DIAGNOSES: Personal history of serrated adenoma of the colon and colorectal cancer screening, diverticulosis, internal hemorrhoids. DESCRIPTION OF PROCEDURE: The patient was placed in the left lateral decubitus position. The digital rectal exam revealed no abnormalities. The Olympus video pediatric colonoscope was entered into the rectum and advanced to the cecum. Advancement to the cecum was somewhat difficult. However, once in the cecum, I did identify normal-appearing cecal pouch with appendiceal orifice and a normal-appearing ileocecal valve. The terminal ileum was cannulated and appeared normal. Scope was withdrawn back in the colon. The entire cecum and ileocecal valve appeared normal. The scope was then slowly withdrawn assessing all mucosal surfaces carefully. Preparation was excellent. I did not visualize any sign of polyps, colitis, nor angiodysplasia. There was a mild amount of sigmoid diverticulosis. In the rectum, scope was retroflexed visualizing internal hemorrhoids, but no other pathology. The rectal mucosa appeared normal. The scope was straightened and withdrawn from the patient. He tolerated the procedure well and was returned to recovery area in stable condition. IMPRESSION: 1. Diverticulosis. 2. Internal hemorrhoids. PLAN: Given his previous history, I would recommend a followup coloscopy in 5 years for further screening. He was advised to resume his Xarelto today. He will otherwise see me on a p.r.n. basis. Corby Sanchez MD RMW/ANGELAL / [phone]
== END 2025-03-30 15:09 | disposition home or self-care (01) ==
PROVIDERS: PCP Internal Medicine; Visit Provider Internal Medicine
PROC: 0DJD8ZZ Inspection of Lower Intestinal Tract, Via Natural or Artificial Opening Endoscopic (ICD-10-PCS; CPT 45378; principal; 2025-03-30 13:00)
DX: Z12.11 Encounter for screening for malignant neoplasm of colon (principal); Z86.0101 Personal history of adenomatous and serrated colon polyps; K57.30 Diverticulosis of large intestine without perforation or abscess without bleeding; K64.8 Other hemorrhoids; R10.9 Unspecified abdominal pain; R14.0 Abdominal distension (gaseous); K59.00 Constipation, unspecified; K58.9 Irritable bowel syndrome, unspecified; I10 Essential (primary) hypertension; E78.5 Hyperlipidemia, unspecified; G47.30 Sleep apnea, unspecified; Z79.01 Long term (current) use of anticoagulants; Z79.82 Long term (current) use of aspirin; Z79.899 Other long term (current) drug therapy; Z99.89 Dependence on other enabling machines and devices; Z90.49 Acquired absence of other specified parts of digestive tract; Z98.890 Other specified postprocedural states
CPT/HCPCS: G0105; J2704

== ENCOUNTER 2025-05-20 11:25 | Outpatient (AMB) | payer MEDICARE, OTHER, SELFPAY ==
--- OUTSIDE RECORDS SUMMARY | 2025-01-09 05:15 | XMS_ITS ---
Author Organization Blue Acosta MD Address [address] [place], [place] [phone] Care Team Providers Care Research Chemist Name Role Phone Blue Acosta Primary Care [...] kg/m2 01/09/2025 weight is down 6 pounds [facility] e 07-10-24 Encounters Encounter Location Date Provider Diagnosis Blue Acosta MD [address] [place] [address] [address] [place], [place] [phone] 01/09/2025 Blue Acosta Pleural effusion J90 ; [...] testing, THE ORDER HAS BEEN FAXED TO [facility] FOR SCHEDULING 01/09/2025 Foot drop, left (ICD-10 [...] testing, THE ORDER HAS BEEN FAXED TO [facility] FOR SCHEDULING Foot drop, left pending diagnostic t esting Prediabetes stable, no need for medication at this time, will contiue to monitor Mixed hyperlipidemia stable, will contin ue current regiment Pending Test Test Name Order Date MRI LUMBAR SPINE NO CONTRAST 01/09/2025 XR CHEST 2 VIEW PA & LAT 01/09/2025 Next Appt Details Provider Name:Blue Arechiga ier, 07/10/2025 07:00:00 AM, [address] [place] [address], [address], [place], [place], [phone], Provider Name:Blue Arechiga ier, 07/16/2025 08:00:00 AM, [address] [facility], [address], [place], [place], [phone], Progress Notes * AMBROCIOKyrie CHEUNG GDOB:[birth year] (69 yo M)Acc No.[id number]:01/09/2025 Progress Notes Patient: Kyrie LAWRENCE Provider: Madan Acosta MD :1955 A ge:69 Y S ex:Male Date:01/09/2025 Address:[address] [place], [place] [phone] Subjective: * Chief Complaints: * 6 MO [...] testing, THE ORDER HAS BEEN FAXED TO [facility] FOR SCHEDULING 3. F oot drop, left [...] 01/09/2025 Generated for Navjot mccall/Janay/eTransmitting on: 0 05/20/2025 12:12 PM EDT History and Physical Notes * [...]
--- OUTSIDE RECORDS SUMMARY | 2025-03-20 05:30 | XMS_ITS ---
Author Organization [facility] Address [address] [place] [phone] Care Team Providers Care Computer Mechanic Name Role Phone Blue Acosta MD Primary Care Provider Corby Michel [phone] REASON FOR VISIT screening Encounters Encounter Location Date Provider Diagnosis [facility] [place] [address] [place] [id number] 03/20/2025 Corby Sanchez Plan Of Treatment No Information Progress Notes * JORGEKYRIE CHEUNG GDOB:[birth year] (69 yo M)Acc No.[id number]:03/20/2025 COLON WITH MAC Patient: KYRIE LAWRENCE Provider: Del Sanchez MD :1955 A ge:69 Y S ex:Male Date:03/20/2025 Address:[address] [place], [place] [phone] Pcp:Blue Acosta MD Subjective: * Chief Complaints: [...] 0 03/20/2025 Generated for Printi ng/Faxing/eTransmitting on: 05/20/2025 12:11 PM EDT
[2025-05-20 11:27] VITALS: BP 162/88; PULSE 68; TEMP 36.6; O2SAT 97; BMI 42.6
--- NOTE | 2025-05-20 11:27 | AM.OFFWIN_ITS ---
Intake Vital Signs 05/20/25 11:27 Height 6 ft 3 in Weight 341 lb 2 oz BMI 42.6 BP 162/88 H Blood Pressure Location Lt brachial Position Sitting Pulse 68 Pulse Source Pulse Oximeter Temp 97.9 F Temp Source Oral Pulse Oximetry (%) 97 Oxygen Delivery Method Room Air Intake Visit Reasons: EP-sinus infection Patient Tobacco Use Status: Never used Tobacco Allergies zolpidem (Ambien) Allergy (Severe, Verified 03/30/25 12:26) Unknown environmental allergies Adverse Reaction (Intermediate, Verified 03/26/25 13:56) Sinus Inflammation Do you need a note to return to daycare/school/sports/work: No HPI HPI Comments History of Present Illness Details History of Present Illness - The patient is a 69-year-old male pres enting with sinus pain and pressure. - He has been having pain in the sinuses and left ear. - Symptoms began a week ago, with draina ge leading to stomach discomfort and difficulty using CPAP. - No fever or chills, but a cough is pre sent due to throat irritation. 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 - He has not had his allergy shots due t o the previous doctor's long term. - He denies fever, chills, chest pain, S OB, recent travel, or sick contacts. Physical Exam General: Cooperative, healthy appearing, comfortable, no acute distress and well developed Head: Normal to inspection Ears: Hearing grossly normal bilaterally. No tragus or mastoid tenderness noted. Auditory canals clear bilaterally. TM's normal, not bulging. No fluid noted. Effusion noted in the left ear. Nose: Normal external nose present. Moist mucosa. Turbinates normal bilaterally, not boggy. Face and sinus: Tenderness to palpation of the frontal and maxillary sinuses bilaterally. Neck: Normal visual inspection and Yes full ROM. No lymphadenopathy noted. Respiratory: Normal respiratory effort and able to speak in complete sentences. Clear to auscultation bilaterally Cardiovascular: Regular rate and rhythm. Normal S1 and S2 GI: Normal to inspection. Soft to palpation and nontender, nondistended. No guarding noted. Skin: No rashes or lesions noted [facility] Medical History (Updated 03/26/25 @ 14:11 by Cristina Mosqueda RN) Renal cyst Bleeding hemorrhoids HTN (hypertension) PAF (paroxysmal atrial fibrillation) Surgical History (Updated 03/26/25 @ 14:10 by Cristina Mosqueda RN) Hx of endoscopic retrograde cholangiopancreatography H/O colonoscopy Hx of foot surgery History of tonsillectomy and adenoidectomy History of deviated nasal septum Hx of cholecystectomy History of mandibular surgery Family History Father CVD (cardiovascular disease) Mother No problems noted. Social History Alcohol intake: never Patient Tobacco Use Status: Never used Tobacco Current occupational status: retired Review of Systems Const All systems reviewed & are unremarkable except as noted in HPI and below Physical Exam Vital Signs: Last Vital Signs Temp 97.9 F 05/20/25 11:27 Pulse 68 05/20/25 11:27 BP 162/88 H 05/20/25 11:27 Pulse Ox 97 05/20/25 11:27 Oxygen Delivery Method Room Air 05/20/25 11:27 BMI result Body Mass Index 42.6 Assessment & Plan Assessment & Plan (1) Sinusitis: Code(s): J32.9 - Chronic sinusitis, unspecified Qualifiers: Sinusitis location: maxillary Chronicity: acute Recurrence: recurrent Qualified Code(s): J01.01 - Acute recurrent maxillary sinusitis Plan Most likely sinusitis Plan - steam showers - tylenol as needed for pain - prednisone burst for 5 days - Augmentin BID for 10 days - follow up with PCP Medications: New amoxicillin-pot clavulanate 875-125 mg 1 tab PO Q12H 20 tabs 0RF 10 days prednisone 40 mg (2 x 20 mg) PO DAILY 10 tabs 0RF 5 days Coding Level of Care Code Est Pt Level 3 (23231) Diagnoses Acute recurrent maxillary sinusitis J01.01 Sinusitis location: maxillary Chronicity: acute Recurrence: recurrent
--- OUTSIDE RECORDS SUMMARY | 2025-05-20 12:12 | XMS_ITS | Patient Health Record ---
Author Organization [facility] [place] Address [address] [place] [address] Care Team Providers Care Floor Hand Name Role Phone Blue Acosta MD Primary Care Provider Milli Jimenez Unavailable [phone] Allergies Allergen (clinical drug ingredient) Drug/Non Drug [...] W/U Status Risk Notes Problem Tinea unguium (634123936) Tinea unguium (B35.1) Active confirmed Problem Acquired hammer toe of left foot (1177297157776613 ) Other hammer toe(s) (acquired), left foot (M20.42) Active confirmed Problem Localized, primary osteoarthritis of the ankle and/or foot (591333309) Arthritis of joint of lesser toe, left (M19.072) Active confirmed Problem Ischemic ulcer of left foot, 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) Active confirmed Response to treatment Vital Signs Blood pressure diastolic 58 mm Hg 05/20/2024 Height 6ft3in in 05/20/2024 Blood pressure systolic 122 mm Hg 05/20/2024 Weight 315 lbs 05/20/2024 BMI 39.37 kg/m2 05/20/2024 Encounters Encounter Location Date Provider Diagnosis [facility] [place] [address] [place] [address] 05/20/2024 Milli Yost Other hammer toe(s) (acquired), [...] X ray : Foot, left 3V 05/06/2024 [id number] NAIL, 1-5 08/17/2023 [id number] NAIL, 1-5 03/31/2016 13582- Debride <25 sq cm 09/02/2013 97076- Debride <25 sq cm 08/17/2023 [id number] SKIN/TISSUE 07/07/2013 [id number] SKIN/TISSUE 07/22/2013 [id number] SKIN/TISSUE 08/12/2013 Insurance Providers Payer Name Payer Address Payer Phone Subscriber Number Group Number Insured Name Patient Relationship to Insured Coverage Start Date Coverage End Date Medicare National Govt Sv[employer] Inc [address] [place] [address] [phone] [id number] Mahin Ha Self - patient is the insured [employer] [address] [place] [address] [id number] Mahin Ha Self - patient is [...]
== END 2025-05-20 12:12 | disposition home or self-care (01) ==
PROVIDERS: PCP Internal Medicine; Visit Provider Physician Assistant Medical
DX: J01.01 Acute recurrent maxillary sinusitis (principal)

== ENCOUNTER → 2025-05-20 11:25 | Outpatient (BNVA) | payer MEDICARE, OTHER, SELFPAY | PROVIDERS: PCP Internal Medicine; Visit Provider Physician Assistant Medical | DX: J01.01 Acute recurrent maxillary sinusitis (principal) | CPT/HCPCS: 99212 ==

== ENCOUNTER 2025-05-28 08:09 | Outpatient (REF) | payer MEDICARE, OTHER, SELFPAY ==
--- OUTSIDE RECORDS SUMMARY | 2025-01-09 05:15 | XMS_ITS ---
Author Organization Blue Acosta MD Address [address] [place], [place] [phone] Care Team Providers Care Derrick Hand Name Role Phone Blue Acosta Primary Care [...] kg/m2 01/09/2025 weight is down 6 pounds [facility] e 07-10-24 Encounters Encounter Location Date Provider Diagnosis Blue Acosta MD [address] [place] [address] [address] [place], [place] [phone] 01/09/2025 Blue Acosta Pleural effusion J90 ; [...] testing, THE ORDER HAS BEEN FAXED TO [facility] FOR SCHEDULING 01/09/2025 Foot drop, left (ICD-10 [...] testing, THE ORDER HAS BEEN FAXED TO [facility] FOR SCHEDULING Foot drop, left pending diagnostic t esting Prediabetes stable, no need for medication at this time, will contiue to monitor Mixed hyperlipidemia stable, will contin ue current regiment Pending Test Test Name Order Date MRI LUMBAR SPINE NO CONTRAST 01/09/2025 XR CHEST 2 VIEW PA & LAT 01/09/2025 Next Appt Details Provider Name:Blue Arechiga ier, 07/10/2025 07:00:00 AM, [address] [place] [address], [address], [place], [place], [phone], Provider Name:Blue Arechiga ier, 07/16/2025 08:00:00 AM, [address] [facility], [address], [place], [place], [phone], Progress Notes * AMBROCIOKyrie CHEUNG GDOB:[birth year] (69 yo M)Acc No.[id number]:01/09/2025 Progress Notes Patient: Kyrie LAWRENCE Provider: Madan Acosta MD :1955 A ge:69 Y S ex:Male Date:01/09/2025 Address:[address] [place], [place] [phone] Subjective: * Chief Complaints: * 6 MO F/U and f/u ER visits x 2Accompanied by * HPI: S ymptom(s): patient is a 69 yo male here for 6 month follow up visit, as well as follow up of recent ER visits. * ROS: G eneral/Constitutional: Denies [place] hills. D enies F atigue. D enies F ever. D enies H eadache. E NT: Denies S ore throat. R espiratory: Denies C ough. D enies S hortness of breath at rest. D enies S hortness of breath with exertion. G astrointestinal: Denies D iarrhea. D enies N ausea. M usculoskeletal: Patient complaining of [...] L ab:Lipid Panel with Reflex (Order Date 01/02/2025) (Collection Date & Time - 01/02/2025 [...] testing, THE ORDER HAS BEEN FAXED TO [facility] FOR SCHEDULING 3. F oot drop, left [...] MD Date: 0 01/09/2025 Generated for Navjot mccall/Janay/eTransmitting on: 0 05/28/2025 08:14 AM EDT History and Physical Notes * [...]
--- OUTSIDE RECORDS SUMMARY | 2025-03-20 05:30 | XMS_ITS ---
Author Organization [facility] Address [address] [place] [phone] Care Team Providers Care Cotton Washer Name Role Phone Blue Acosta MD Primary Care Provider Corby Michel [phone] REASON FOR VISIT screening Encounters Encounter Location Date Provider Diagnosis [facility] [place] [address] [place] [id number] 03/20/2025 Corby Sanchez Plan Of Treatment No Information Progress Notes * JORGEADRIENNEIN GDOB:[birth year] (69 yo M)Acc No.[id number]:03/20/2025 COLON WITH MAC Patient: KYRIE LAWRENCE Provider: Del Sanchez MD :1955 A ge:69 Y S ex:Male Date:03/20/2025 Address:[address] [place], [place] [phone] Pcp:Blue Acosta MD Subjective: * Chief Complaints: [...] 0 03/20/2025 Generated for Printi ng/Faxing/eTransmitting on: 05/28/2025 08:13 AM EDT
--- NOTE | ~2025-05-28 | US_ITS ---
CLINICAL HISTORY: N32.0 - Bladder-neck obstruction US bladder with color Doppler Comparison: US/GA - US SCROTUM DOPPLER - 01/06/25 17:[address]/GA/SR - CT ABDOMEN PELVIS WO IV CON - 01/06/25 13:10 EDT Findings: Urinary bladder is unremarkable. Prevoid volume 386.0 mL. Postvoid volume 148.0 mL. Ureteral jets are visualized bilaterally Prostate measuring 2.8 x 4.5 x 4.5 cm. Impression: 1. Elevated postvoid residual. 2. Prostate volume 30.0 mL This document has been electronically signed by: Seb Bang MD on 05/28/2025 09:46:19
--- OUTSIDE RECORDS SUMMARY | 2025-05-28 08:14 | XMS_ITS | Patient Health Record ---
Author Organization [facility] hallie [place] Address [address] [place] [address] Care Team Providers Care Tax Expert Name Role Phone Blue Acosta MD Primary Care Provider Milli Jimenez Unavailable [phone] Allergies Allergen (clinical drug ingredient) Drug/Non Drug [...] W/U Status Risk Notes Problem Tinea unguium (189940473) Tinea unguium (B35.1) Active confirmed Problem Acquired hammer toe of left foot (8612182439911045 ) Other hammer toe(s) (acquired), left foot (M20.42) Active confirmed Problem Localized, primary osteoarthritis of the ankle and/or foot (370189888) Arthritis of joint of lesser toe, left (M19.072) Active confirmed Problem Ischemic ulcer of left foot, 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) Active confirmed Response to treatment Plan Of Treatment Pending Test Test Name [...] X ray : Foot, left 3V 05/06/2024 [id number] NAIL, 1-5 08/17/2023 20458-[id number] NAIL, 1-5 03/31/2016 43288- Debride <25 sq cm 09/02/2013 84883- Debride <25 sq cm 08/17/2023 [id number] SKIN/TISSUE 07/07/2013 [id number] SKIN/TISSUE 07/22/2013 [id number] SKIN/TISSUE 08/12/2013 Insurance Providers Payer Name Payer Address Payer Phone Subscriber Number Group Number Insured Name Patient Relationship to Insured Coverage Start Date Coverage End Date Medicare National Govt Svcs Inc [address] [facility] [place] [address] [id number] Mahin Ha Self - patient is the insured [facility] [address] ([facility]) [address] [place] [address] [id number] Mahin Ha Self - patient is [...]
== END 2025-05-28 08:10 | disposition home or self-care (01) ==
LOC: HO.HMGCX 08:09
PROVIDERS: PCP Internal Medicine; Visit Provider Urology
DX: N32.0 Bladder-neck obstruction (principal)
CPT/HCPCS: 76857

== ENCOUNTER 2025-06-02 13:21 | Outpatient (AMB) | payer MEDICARE, OTHER, SELFPAY ==
--- OUTSIDE RECORDS SUMMARY | 2025-01-09 05:15 | XMS_ITS ---
Author Organization Blue Acosta MD Address [address] [place], [place] [phone] Care Team Providers Care Chiseler Head Name Role Phone Blue Acosta Primary [...] kg/m2 01/09/2025 weight is down 6 pounds [facility] e 07-10-24 Encounters Encounter Location Date Provider Diagnosis Blue Acosta MD [address] [place] [address] [address] [place], [place] [phone] 01/09/2025 Blue Acosta Pleural effusion J90 ; [...] testing, THE ORDER HAS BEEN FAXED TO [facility] FOR SCHEDULING 01/09/2025 Foot drop, left (ICD-10 [...] testing, THE ORDER HAS BEEN FAXED TO [facility] FOR SCHEDULING Foot drop, left pending diagnostic t esting Prediabetes stable, no need for medication at this time, will contiue to monitor Mixed hyperlipidemia stable, will contin ue current regiment Pending Test Test Name Order Date MRI LUMBAR SPINE NO CONTRAST 01/09/2025 XR CHEST 2 VIEW PA & LAT 01/09/2025 Next Appt Details Provider Name:Blue Arechiga ier, 07/10/2025 07:00:00 AM, [address] [place] [address], [address], [place], [place], [phone], Provider Name:Blue Arechiga ier, 07/16/2025 08:00:00 AM, [address] [facility], [address], [place], [place], [phone], Progress Notes * AMBROCIOKyrie CHEUNG GDOB:[birth year] (69 yo M)Acc No.[id number]:01/09/2025 Progress Notes Patient: Kyrie LAWRENCE Provider: Madan Acosta MD :1955 A ge:69 Y S ex:Male Date:01/09/2025 Address:[address] [place], [place] [phone] Subjective: * Chief Complaints: * 6 MO [...] testing, THE ORDER HAS BEEN FAXED TO [facility] FOR SCHEDULING 3. F oot drop, left [...] 01/09/2025 Generated for Navjot mccall/Janay/eTransmitting on: 0 06/02/2025 02:35 PM EDT History and Physical Notes * [...]
--- OUTSIDE RECORDS SUMMARY | 2025-03-20 05:30 | XMS_ITS ---
Author Organization [facility] Address [address] [place] [address] Care Team Providers Care Spot Billing Clerk Name Role Phone Blue Acosta MD Primary Care Provider Corby Michel [phone] REASON FOR VISIT screening Encounters Encounter Location Date Provider Diagnosis [facility] [place] [address] [place] [id number] 03/20/2025 Corby Sanchez Plan Of Treatment No Information Progress Notes * JORGEADRIENNE CHEUNGIN GDOB:[birth year] (69 yo M)Acc No.[id number]:03/20/2025 COLON WITH MAC Patient: KYRIE LAWRENCE Provider: Del Sanchez MD :1955 A ge:69 Y S ex:Male Date:03/20/2025 Address:[address] [place], [place] [phone] Pcp:Blue Acosta MD Subjective: * Chief Complaints: [...] 0 03/20/2025 Generated for Printi ng/Faxing/eTransmitting on: 06/02/2025 02:35 PM EDT
--- OUTSIDE RECORDS SUMMARY | 2025-06-02 14:36 | XMS_ITS | Patient Health Record ---
Author Organization [facility] [place] [place] Address [address] [place] [address] Care Team Providers Care Procurement Professional Logistics Name Role Phone Blue Acosta MD Primary Care Provider Milli Jimenez Unavailable [phone] Allergies Allergen (clinical drug ingredient) Drug/Non Drug [...] W/U Status Risk Notes Problem Tinea unguium (586553591) Tinea unguium (B35.1) Active confirmed Problem Acquired hammer toe of left foot (0995559128810073 ) Other hammer toe(s) (acquired), left foot (M20.42) Active confirmed Problem Localized, primary osteoarthritis of the ankle and/or foot (870403194) Arthritis of joint of lesser toe, left [...] X ray : Foot, left 3V 05/06/2024 [id number] NAIL, 1-5 08/17/2023 [id number] NAIL, 1-5 03/31/2016 59263- Debride <25 sq cm 09/02/2013 71030- Debride <25 sq cm 08/17/2023 [id number] SKIN/TISSUE 07/07/2013 [id number] SKIN/TISSUE 07/22/2013 [id number] SKIN/TISSUE 08/12/2013 Insurance Providers Payer Name Payer Address Payer Phone Subscriber Number Group Number Insured Name Patient Relationship to Insured Coverage Start Date Coverage End Date Medicare National Govt Svcs Inc [address] [place] [address] [phone] [id number] Mahin Ha Self - patient is the insured [facility] [address] [place] [address] [phone] [id number] Mahin Ha Self - patient is [...]
== END 2025-06-02 13:58 | disposition home or self-care (01) ==
LOC: HO.HMGAL 13:21
PROVIDERS: PCP Internal Medicine; Visit Provider Registered Nurse Emergency
DX: J30.89 Other allergic rhinitis (principal)
CPT/HCPCS: 95117; 95165

== ENCOUNTER 2025-06-08 13:03 | Outpatient (AMB) | payer MEDICARE, OTHER, SELFPAY ==
--- OUTSIDE RECORDS SUMMARY | 2025-01-09 05:15 | XMS_ITS ---
Author Organization Blue Acosta MD Address [address] [place], [place] [phone] Care Team Providers Care Neck Band Setter Name Role Phone Blue Acosta Primary Care [...] kg/m2 01/09/2025 weight is down 6 pounds [facility] e 07-10-24 Encounters Encounter Location Date Provider Diagnosis Blue Acosta MD [address] [place] [address] [address] [place], [place] [phone] 01/09/2025 Blue Acosta Pleural effusion J90 ; [...] testing, THE ORDER HAS BEEN FAXED TO [facility] FOR SCHEDULING 01/09/2025 Foot drop, left (ICD-10 [...] testing, THE ORDER HAS BEEN FAXED TO [facility] FOR SCHEDULING Foot drop, left pending diagnostic t esting Prediabetes stable, no need for medication at this time, will contiue to monitor Mixed hyperlipidemia stable, will contin ue current regiment Pending Test Test Name Order Date MRI LUMBAR SPINE NO CONTRAST 01/09/2025 XR CHEST 2 VIEW PA & LAT 01/09/2025 Next Appt Details Provider Name:Blue Arechiga ier, 07/10/2025 07:00:00 AM, [address] [place] [address], [address], [place], [place], [phone], Provider Name:Blue Arechiga ier, 07/16/2025 08:00:00 AM, [address] [facility], [address], [place], [place], [phone], Progress Notes * AMBROCIOKyrie CHEUNG GDOB:[birth year] (69 yo M)Acc No.[id number]:01/09/2025 Progress Notes Patient: Kyrie LAWRENCE Provider: Madan Acosta MD :1955 A ge:69 Y S ex:Male Date:01/09/2025 Address:[address] [place], [place] [phone] Subjective: * Chief Complaints: * 6 MO [...] testing, THE ORDER HAS BEEN FAXED TO [facility] FOR SCHEDULING 3. F oot drop, left [...] 01/09/2025 Generated for Navjot mccall/Janay/eTransmitting on: 0 06/08/2025 02:20 PM EDT History and Physical Notes * [...]
--- OUTSIDE RECORDS SUMMARY | 2025-01-12 04:57 | XMS_ITS ---
Author Organization Blue Acosta MD Address 10 [facility] [address] [place] [phone] Care Team Providers Care Rubber Goods Finisher Name Role Phone Blue Acosta Primary Care Provider [phone] REASON FOR VISIT MRI order Encounters Encounter Location Date Provider Diagnosis Blue Acosta MD [address] [place] [address] [place] [phone] 01/12/2025 Blue Acosta Plan Of Treatment Next Appt Details Provider Name:Blue Arechiga ier, 07/10/2025 07:00:00 AM, [address] [place] [address], [address] [place] [address], [phone], Provider Name:Blue Arechiga ier, 07/16/2025 08:00:00 AM, [address] [place] [address], [address] [place] [address], [phone], Progress Notes * Mahin AMBROCIO GDOB:[birth year] (69 yo M)Acc No.[id number]:01/12/2025 Patient: Mahin LAWRENCE :1955 A ge:69 Y S ex:Male Address:[address] [place] [address] * true * Date: Generated for Printi ng/Faxing/eTransmitting on: 0 06/08/2025 02:21 PM EDT
--- OUTSIDE RECORDS SUMMARY | 2025-01-13 10:52 | XMS_ITS ---
Author Organization Blue Acosta MD Address [address] [place] [address] [place] [phone] Care Team Providers Care Shiftman Name Role Phone Blue Acosta Primary Care Provider REASON FOR VISIT Repeat CXR Encounters Encounter Location Date Provider Diagnosis Blue Acosta MD [address] [place] [phone] 01/13/2025 Blue Acosta Pleural effusion J90 Assessments [...] Details Provider Name:Blue garrido, 07/10/2025 07:00:00 AM, [address] [place] [address], [address], [phone], Provider Name:Blue garrido, 07/16/2025 08:00:00 AM, [address] [place] [address], [address], [phone], Progress Notes * Mahin AMBROCIO GDOB:[birth year] (69 yo M)Acc No.[id number]:01/13/2025 Patient: Mahin LAWRENCE :1955 A ge:69 Y S ex:Male Address:[address] [place] [address] Subjective: * Chief Complaints: * R epeat CXR * Medical History: * Surgical History: * Hospitalization/Major Diagno stic Procedure: * Medications: Objective: * Vitals: * Physical Examination: Assessment: * Assessment: 1. P leural effusion - J90 Plan: * Treatment: * Procedure Codes: * true * Date: Generated for Navjot mccall/Janay/Dietersmitting on: 0 06/08/2025 02:20 PM EDT
--- OUTSIDE RECORDS SUMMARY | 2025-03-20 05:30 | XMS_ITS ---
Author Organization [facility] Address [address] [place] [address] Care Team Providers Care Rn Hemodialysis Name Role Phone Blue Acosta MD Primary Care Provider Corby Michel [phone] REASON FOR VISIT screening Encounters Encounter Location Date Provider Diagnosis [facility] Out[place] [address] [place] [id number] 03/20/2025 Corby Sanchez Plan Of Treatment No Information Progress Notes * JORGEADRIENNE CHEUNGIN GDOB:[birth year] (69 yo M)Acc No.[id number]:03/20/2025 COLON WITH MAC Patient: KYRIE LAWRENCE Provider: Del Sanchez MD :1955 A ge:69 Y S ex:Male Date:03/20/2025 Address:[address] [place], [place] [phone] Pcp:Blue Acosta MD Subjective: * Chief Complaints: [...] 0 03/20/2025 Generated for Printi ng/Faxing/eTransmitting on: 06/08/2025 02:20 PM EDT
--- OUTSIDE RECORDS SUMMARY | 2025-03-30 09:10 | XMS_ITS ---
Author Organization [facility] Address [address] [place] [address] Care Team Providers Care Filer Helper Name Role Phone Blue Acosta MD Primary Care Provider Corby Michel [phone] Encounters Encounter Location Date Provider Diagnosis [facility] Out[place] [address] [place] [id number] 03/30/2025 Corby Sanchez Colon cancer scree ascencion [...] KYRIE JORGE GDOB:[birth year] (69 yo M)Acc No.[id number]:03/30/2025 COLON WITH MAC Patient: Yanick COLEMANPEYMAN KYRIE G Provider: Del Sanchez MD :1955 A ge:69 Y S ex:Male Date:03/30/2025 Address:[address] [place], [place] [phone] Pcp:Blue Acosta MD Subjective: * Chief Complaints: [...] 03/30/2025 Generated for Navjot mccall/Janay/Tanoitting on: 0 06/08/2025 02:21 PM EDT
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
--- OUTSIDE RECORDS SUMMARY | 2025-06-08 14:21 | XMS_ITS | Patient Health Record ---
Author Organization Blue Acosta MD Address [address] [place], [place] [address] Care Team Providers Care [employer] Dean Name Role Phone Blue Acosta Primary Care Provider [phone] Allergies Allergen (clinical drug ingredient) Drug/Non Drug Allergy documented on EMR Reaction Allergy Type Onset Date Status zolpidem ambien (uncoded) hallucinations Allergy Active amoxil (uncoded) rash Allergy Act dick Results Component Value Reference Range Notes Complete Blood Count Auto Di ff Reviewed date:07/03/2024 05:03:13 PM Interpretation: Performing Lab:[facility], [address] [place] [phone] Notes/Report: White Blood Count 8.5 4.8-10.8 X10*3/uL [...] NRBC Abs Auto 0.000 0.0-0.012 X10*3/uL Comprehensive [place]. Panel Fa Reviewed date:07/03/2024 12:20:41 PM Interpretation: Performing Lab:[facility], [address] [place] [phone] Notes/Report: Sodium 140 135-145 mmol/L Potassium 4.2 3.3-5.1 mmol/L Chloride 105 96-108 mmol/L Carbon Dioxide 28 22-29 mmol/L Anion Gap 11 12-20 Blood Urea Nitrogen 16 9-16 mg/dL Creatinine 0.91 0.5-1.4 mg/dL Estimated Glomerular Filt Rate > 60 NOTE: For -Citizen Of [place] individuals, multiply the result by 1.210. Chronic [...] Panel Reviewed date:07/03/2024 12:16:21 PM Interpretation: Performing Lab:[facility], [address] [place] [address] Notes/Report: Triglycerides 103 <150 mg/dL Desirable Triglyceride: [...] (Free>4and<10) Reviewed date:07/03/2024 12:17:59 PM Interpretation: Performing Lab:[facility], [address] [place] [phone] Notes/Report: PSA,Total (Free>4and<10) 0.31 0.00-4.00 ng/mL A [...] Random Reviewed date:07/03/2024 12:30:42 PM Interpretation: Performing Lab:[facility], [address] [place] [phone] Notes/Report: Creatinine Urine 52.54 Microalbumin Urine < 5.0 Microalbum/Creatinine Ratio Ur TNP <30 ug/mg cr Unable to calculate albumin/creatinine ratio due to low microalbumin or creatinine result. Hemoglobin A1c Reviewed date:07/03/2024 12:16:31 PM Interpretation: Performing Lab:[address] [address] Notes/Report: Hemoglobin A1c % 5.6 <6.0 % [...] average glucose, using the formula of the B8K-Ilykung Average Glucose study (ADAG), Diabetes Care, Vol.31,#8, 2007 UA ClnCatch+Micro w/rflx Cul t Reviewed date:07/03/2024 12:27:43 PM Interpretation: Performing Lab:[address] [phone] Notes/Report: Urine, Clean Catch Color Urine Yellow Appearance Urine Clear PH 5.5 5.0-9.0 Glucose Urine UA Negative Negative mg/dL Urine Blood Negative Negative Specific [place] - Urine 1.010 1.005-1.025 Urine Protein Negative Neg-Trace mg/dL Urine Ketones Negative Negative mg/dL Nitrite Urine Negative Negative Leukocyte Esterase Urine Negative Negative RBC Urine 0-2 0-2 /HPF WBC Urine 0-5 0-5 /HPF Squamous Epithelial Cell Urine 0-2 0-2 /HPF Bacteria Urine None Seen None Seen Hyaline Casts Urine 0-2 0-2 /LPF Liver Panel Reviewed date:01/02/2025 12:30:46 PM Interpretation: Performing Lab:[facility], [address] [place] [phone] Notes/Report: Bilirubin Total 0.6 0.0-1.0 mg/dL Bilirubin Direct 0.3 0.0-0.5 mg/dL Aspartate Amino Transferase 29 5-37 U/L Alanine Aminotransferase 22 0-40 U/L Total Protein 7.6 6.5-8.0 g/dL Albumin Level 3.9 3.5-5.0 g/dL Alkaline Phosphatase 80 39-117 U/L Glucose Fasting Reviewed date:01/02/2025 12:30:54 PM Interpretation: Performing Lab:[facility], [address] [place] [phone] Notes/Report: Glucose Fasting 118 60-99 mg/dL A fasting glucose from 100-125 mg/dl is considered impaired (pre-diabetes). Lipid Panel with Reflex Reviewed date:01/02/2025 12:31:05 PM Interpretation: Performing Lab:[facility], [address] [place] [phone] Notes/Report: Triglycerides 118 <150 mg/dL Desirable Triglyceride: [...] A1c Reviewed date:01/03/2025 06:16:13 PM Interpretation: Performing Lab:[facility], [address] [place] [phone] Notes/Report: Hemoglobin A1c % 5.6 <6.0 % [...] average glucose, using the formula of the J7Y-Mbfgvlf Average Glucose study (ADAG), Diabetes Care, Vol.31,#8, May. 2007 Johnie Milner Reviewed date:01/02/2025 12:23:00 PM Interpretation: Performing Lab:[facility], [address] [place] [phone] Notes/Report: Hold Gold See Note Specimen held untested for 24 hours; Call to request Chemistry testing. Complete Blood Count Auto Di ff Reviewed date:01/06/2025 08:02:47 PM Interpretation: Performing Lab:[facility], [address] [place] [phone] Notes/Report: White Blood Count 12.8 4.8-10.8 X10*3/uL [...] Panel Reviewed date:01/06/2025 08:04:15 PM Interpretation: Performing Lab:[facility], [address] [place] [address] Notes/Report: Sodium 140 135-145 mmol/L Potassium 4.1 [...] Magnesium Reviewed date:01/06/2025 07:58:26 PM Interpretation: Performing Lab:[address] [address] Notes/Report: Magnesium 1.8 1.6-2.6 mg/dL Lipase Reviewed date:01/06/2025 07:58:34 PM Interpretation: Performing Lab:[address] [address] Notes/Report: Lipase 23 8-78 U/L CT NG by PCR Reviewed date:01/07/2025 02:59:49 PM Interpretation: Performing Lab:[address] [address] Notes/Report: Urine CT PCR NOT DETECTED Not [...] Cult Reviewed date:01/08/2025 04:41:34 PM Interpretation: Performing Lab:[facility], [address] [place] [phone] Notes/Report: Urine, Clean Catch Color Urine Yellow Appearance Urine Clear PH 5.5 5.0-9.0 Glucose Urine UA Negative Negative mg/dL Urine Blood Negative Negative Specific [place] - Urine 1.015 1.005-1.025 Urine Protein Negative Neg-Trace mg/dL Urine Ketones Negative Negative mg/dL Nitrite Urine Negative Negative Leukocyte Esterase Urine Negative Negative CT abdomen pelvis wo con Reviewed date:01/06/2025 08:03:52 PM Interpretation: Performing Lab: Notes/Report: [address] [address] [address] Scan Report Signed Patient: Mahin Ambrocio MR#: [id number] 045 : 1955 Acct:[id number] Age/Sex: 69 / M ADM Date: 01/06/25 Loc: .ED Attending Dr: Ordering Physician: Cristina Birmingham Date of Service: 01/06/25 Procedure(s): CT abdomen pelvis wo IV con Accession Number(s): [id number] cc: Blue Acosta MD; Cristina Birmingham Report Number: [id number]: Total DLP = 1401.00 mGy-cm EXAMINATION: CT [...] 02:14 PM EDT RP Dictated By: Pete Jauregui MD Signed By: <Electronically signed by Pete Lane MD in OV> 01/06/25 1414 DD/ 1310 TD/TT: 01/06/25 1402 Batch Maker: [place] [address] [address] Scan Report Signed Patient: Ziyad Ambrocio G MR#: [id number] 045 : 1955 Acct:[id number] Age/Sex: 69 / M ADM Date: 01/06/25 Loc: HO.ED Attending Dr: Ordering Physician: Cristina Birmingham Date of Service: 01/06/25 Procedure(s): CT abd omen pelvis wo IV con Accession Number(s): [id number] cc: Blue Acosta MD; Cristina Birmingham Report Number: [id number]: Total DLP = 1401.00 mGy-cm EXAMINATION: CT [...] 01/06/2025 02:14 PM EDT Dictated By: Pete Vegas MD Signed By: <Electronically signed by Pete Lane MD in OV> 01/06/25 1414 DD/ 1310 TD/TT: 01/06/25 1402 Batch Maker: scrotum Reviewed date:01/07/2025 03:00:25 PM Interpretation: Performing Lab: Notes/Report: [address] [address] Ultrasound Report Signed Patient: Mahin Ambrocio MR#: [id number] 045 : 1955 Acct:[id number] Age/Sex: 69 / M ADM Date: 01/06/25 Loc: HO.ED Attending Dr: Ordering Physician: Omid Lopez MD Date of Service: 01/06/25 Procedure(s): US scrotum Accession Number(s): [id number] cc: Blue Acosta MD; Omid Lopez MD CLINICAL HISTORY: L testicular pain. Ultrasound scrotum. COMPARISON: None Technique: Real time sonographic imaging, including color-flow imaging, was performed by the shellacker. Multiple market survey representative static images were saved for review. [...] OV> 01/07/25 0804 DD/ 15 TD/TT: 01/06/251815 Batch Maker: [place] [address] Ultrasound Report Signed Patient: Ziyad Ambrocio MR#: [id number] 045 : 1955 Acct:[id number] Age/Sex: 69 / M ADM Date: 01/06/25 Loc: HO.ED Attending Dr: Ordering Physician: Omid Lopez MD Date of Service: 01/06/25 Procedure(s): US scrotum Accession Number(s): [id number] cc: Blue Acosta MD; Omid Lopez MD CLINICAL HISTORY: L testicular pain. Ultrasound scrotum. COMPARISON: None Technique: Real time sonographic imaging, including color-flow imaging, was performed by the shellacker. Multiple market survey representative static images were saved for review. [...] Bonilla MD in OV> 01/07/25 0804 DD/ 181 TD/TT: 01/06/25 181 Batch Maker: US scrotum doppler Reviewed date:01/06/2025 08:04:52 PM Interpretation: Performing Lab: Notes/Report: [address] [address] Ultrasound Report Signed Patient: Mahin Ambrocio MR#: [id number] 045 : 1955 Acct:[id number] Age/Sex: 69 / M ADM Date: 01/06/25 Loc: .ED Attending Dr: Ordering Physician: Louise Callejas Date of Service: 01/06/25 Procedure(s): US scrotum doppler Accession Number(s): [id number] cc: Blue Acosta MD; Louise Callejas CLINICAL HISTORY: L testicular pain. Ultrasound scrotum. COMPARISON: None Technique: Real time sonographic imaging, including color-flow imaging, was performed by the shellacker. Multiple market survey representative static images were saved for review. [...] in OV> 01/06/251815 DD/ 15 TD/TT: 01/06/251815 Batch Maker: [place] [address] Ultrasound Report Signed Patient: Ziyad Ambrocio MR#: [id number] 045 : 1955 Acct:[id number] Age/Sex: 69 / M ADM Date: 01/06/25 Loc: HO.ED Attending Dr: Ordering Physician: Louise Callejas Date of Service: 01/06/25 Procedure(s): US scr otum doppler Accession Number(s): [id number] cc: Blue Acosta MD; Louise Callejas CLINICAL HISTORY: L testicular pain. Ultrasound scrotum. COMPARISON: None Technique: Real time sonographic imaging, including color-flow imaging, was performed by the shellacker. Multiple market survey representative static images were saved for review. [...] in OV> 01/06/251815 DD/ 15 TD/TT: 01/06/251815 Batch Maker: XR chest 2V Reviewed date:01/13/2025 02:56:25 PM Interpretation: Performing Lab: Notes/Report: [place] [address] XRay Report Signed Patient: Mahin Ambrocio MR#: [id number] 045 : 1955 Acct:[id number] Age/Sex: 69 / M ADM Date: 01/09/25 Loc: SHAY Attending Dr: Blue Acosta MD Ordering Physician: Blue Acosta MD Date of Service: 01/09/25 Procedure(s): XR chest 2V Accession Number(s): [id number] cc: Blue Acosta MD EXAMINATION: XR CHEST [...] 10:59 AM EDT RP Dictated By: Pete Jauregui MD Signed By: <Electronically signed by Pete Lane MD in OV> 01/09/25 1059 DD/ 1000 TD/TT: 01/09/25 1010 Batch Maker: [address] [address] XRay Report Signed Patient: Ziyad Ambrocio in G MR#: [id number] 045 : 1955 Acct:[id number] Age/Sex: 69 / M ADM Date: 01/09/25 Loc: HO.XRAY Attending Dr: Blue Acosta MD Ordering Physician: Blue Acosta MD Date of Service: 01/09/25 Procedure(s): XR isaias st 2V Accession Number(s): [id number] cc: Blue Acosta MD EXAMINATION: XR CHEST [...] 01/09/25 1059 DD/ 1000 TD/TT: 01/09/25 1010 Batch Maker: MR summers vidhisimran sahra Reviewed date:02/17/2025 04:48:05 PM Interpretation: Performing Lab: Notes/Report: [address] [address] Magnetic Resonance Report Signed Patient: Mahin Ambrocio MR#: [id number] 045 : 1955 Acct:[id number] Age/Sex: 69 / M ADM Date: 02/16/25 Loc: HO.MRI Attending Dr: Jamey Rojas MD Ordering Physician: Jamey Rojas MD Date of Service: 02/16/25 Procedure(s): MR abdomen wo/w con Accession Number(s): [id number] cc: Blue Acosta MD; Jamey Rojas MD CLINICAL HISTORY: N28.1 - Cyst of kidney, acquired MR abdomen with and without gadolinium Comparison: CT/MS/SR - CT ABDOMEN PELVIS WO IV CON [...] 02/17/25 1311 DD/ 1309 TD/TT: 02/17/25 1309 Batch Maker: [address] [address] Magnetic Resonance Report Signed Patient: Ziyad Ambrocio MR#: [id number] 045 : 1955 Acct:[id number] Age/Sex: 69 / M ADM Date: 02/16/25 Loc: HO.MRI Attending Dr: Jamey Rojas MD Ordering Physician: Jamey Rojas MD Date of Service: 02/16/25 Procedure(s): MR abd omen wo/w con Accession Number(s): [id number] cc: Blue Acosta MD; Jamey Rojas MD CLINICAL HISTORY: N2 8.1 - Cyst of kidney, acquired MR abdomen with and without gadolinium Comparison: CT/MS/SR - CT ABDOMEN PELVIS WO IV CON [...] 02/17/25 1311 DD/ 1309 TD/TT: 02/17/25 1309 Batch Maker: XR lumbar spine 4V min Reviewed date:02/23/2025 12:34:44 PM Interpretation: Performing Lab: Notes/Report: [facility] [address] [place] [address] XRay Report Signed Patient: Mahin Ambrocio MR#: [id number] 045 : 1955 Acct:[id number] Age/Sex: 69 / M ADM Date: 02/20/25 Loc: HO.HOSX Attending Dr: Simon Solano MD, PhD Ordering Physician: Simon Solano MD, PhD Date of Service: 02/20/25 Procedure(s): XR lumbar spine 4V min Accession Number(s): [id number] cc: Blue Acosta MD; Simon Solano MD, PhD CLINICAL HISTORY: M43.16 - Spondylolisthesis, lumbar region 4 views lumbar spine Comparison: CT/MS/SR - CT ABDOMEN PELVIS WO IV CON [...] in OV> 02/23/25822 DD/ 1 TD/TT: 02/23/25821 Batch Maker: [facility] [address] [place] [address] XRay Report Signed Patient: Ziyad Ambrocio MR#: [id number] 045 : 1955 Acct:[id number] Age/Sex: 69 / M ADM Date: 02/20/25 Loc: HONIDIA Attending Dr: Richard Solano MD, PhD Ordering Physician: Simon Solano MD, PhD Date of Service: 02/20/25 Procedure(s): XR lum bar spine 4V min Accession Number(s): [id number] cc: Blue Acosta MD; Simon Solano MD, PhD CLINICAL HISTORY: M4 3.16 - Spondylolisthesis, lumbar region 4 views lumbar spine Comparison: CT/MS/SR - CT ABDOMEN PELVIS WO IV CON [...] MD Signed By: <Electronically signed by Jenniffer Tisnley MD in OV> 02/23/25822 DD/ 1 TD/TT: 02/23/25821 Batch Maker: US bladder Reviewed date:05/28/2025 12:37:23 PM Interpretation: Performing Lab: Notes/Report: [facility] [address] [place] [address] Ultrasound Report Signed Patient: Mahin Ambrocio MR#: [id number] 045 : 1955 Acct:[id number] Age/Sex: 69 / M ADM Date: 05/28/25 Loc: HO.HMGCX Attending Dr: Don Aj MD Ordering Physician: Don Aj MD Date of Service: 05/28/25 Procedure(s): US bladder Accession Number(s): [id number] cc: Don Aj MD; Blue Acosta MD CLINICAL HISTORY: N32.0 - Bladder-neck obstruction US bladder with color Doppler Comparison: US/MS - US SCROTUM DOPPLER - 01/06/25 17:[address]/MS/SR - CT ABDOMEN PELVIS WO IV CON - 01/06/25 13:10 EDT Findings: Urinary bladder is unremarkable. Prevoid volume 386.0 mL. Postvoid volume 148.0 mL. Ureteral jets are visualized bilaterally Prostate measuring 2.8 x 4.5 x 4.5 cm. Impression: 1. Elevated postvoid residual. 2. Prostate volume 30.0 mL This document has been electronically signed by: Seb Bang MD on 05/28/2025 09:46:19 Dictated By: Seb Bang MD Signed By: <Electronically signed by Seb Bang MD in OV> 05/28/25946 DD/ 5 TD/TT: 05/28/25945 Batch Maker: [facility] [address] [place] [address] Ultrasound Report Signed Patient: Ziyad Ambrocio MR#: [id number] 045 : 1955 Acct:[id number] Age/Sex: 69 / M ADM Date: 05/28/25 Loc: HO.HMGCX Attending Dr: Joselin Bach MD Ordering Physician: Don Aj MD Date of Service: 05/28/25 Procedure(s): US bladder Accession Number(s): [id number] cc: Don Aj MD; Blue Acosta MD CLINICAL HISTORY: N3 2.0 - Bladder-neck obstruction US bladder with colo r Doppler Comparison: US/MS - US SCROTUM DOPPLER - 01/06/25 17:[address]/MS/SR - CT ABDOME N PELVIS WO IV CON - 01/06/25 13:10 EDT Findings: Urinary bladder is unremarkable. Prevoid volume 386.0 mL. Postvoid volume 148. 0 mL. Ureteral jets are visualized bilaterally Prostate measuring 2 .8 x 4.5 x 4.5 cm. Impression: 1. Elevated postvoid residual. 2. Prostate volume 3 0.0 mL This document has be en electronically signed by: Seb Bang MD on 05/28/2025 09:46:19 Dictated By: Seb Bang MD Signed By: <Electronically signed by Seb Bang MD in OV> 05/28/25946 DD/ 5 TD/TT: 05/28/25945 Batch Maker: Reason For Referral No Information Medications Medication [...] Administered pt was given the vaccine at [facility] on [facility]. Fluarix Quadrivalent IM Intramuscular 06/24/2018 [...] Problem Status W/U Status Risk Notes Problem 903672237 Diverticulitis (K57.92) Active confirmed Problem 852169772 Mixed hyperlipidemia (E78.2) Active confirmed Problem 747634486 Paroxysmal atria l fibrillation (I48.0) Active confirmed Problem 96640877 Atherosclerosis of aorta (I70.0) Active confirmed Problem 14355491204812057 Acute recurren t frontal sinusitis (J01.11) Active confirmed Problem 436138248 Angina effort (I20.8) Active confirmed Problem 439251993 Lumbar disc disease (M51.9) Active confirmed Problem 626433751 Tubular adenoma of colon (D12.6) Active confirmed Problem 03717959 Essential hypertension (I10) Active confirmed Problem 5045368 Prediabetes (R73.09) Active confirmed Problem 263698396 Morbid obesity d ue to excess calories (E66.01) Active confirmed Problem 914405919 Cervical disc disease (M50.90) Active confirmed Problem 032847859 Hammertoe of lef t foot (M20.42) Active [...] Date Provider Diagnosis Blue Acosta MD [address] [place], [place] [id number] 07/03/2024 Blue Acosta Mixed hyperlipidemia E78.2 ; Encounter for immunization Z23 ; Essential hypertension I10 and Prediabetes R73.09 Blue Acosta MD [address] [place] [id number] 01/02/2025 Blue Acosta Mixed hyperlipidemia E78.2 and Prediabetes R73.09 Blue Acosta MD [address] [place] [id number] 07/10/2024 Blue Acosta Essential hypertensi on I10 ; Prediabetes R73.09 ; Morbid obesity due to excess calories E66.01 ; Guaiac positive stools R19.5 ; Mixed hyperlipidemia E78.2 ; Colon cancer screening Z12.11 ; Depression screening Z13.31 and Paroxysmal atrial fibrillation I48.0 Blue Acosta MD [address] [place] [id number] 01/09/2025 Blue Acosta Pleural effusion J90 ; Lumbar disc disease with radiculopathy M51.16 ; Foot drop, left M21.372 ; Prediabetes R73.09 and Mixed hyperlipidemia E78.2 Blue Acosta MD [address] [place] [id number] 01/08/2025 Blue Acosta MD [address] [place] [id number] 01/12/2025 Blue Acosta MD [address] [place] [id number] 01/13/2025 Blue Acosta Pleural effusion J90 Assessments Encounter Date Diagnosis (ICD Code) Assessment Notes Treatment Notes Treatment Clinical Notes Section Notes 07/03/2024 Mixed hyperlipidemia (ICD-10 - E78.2) 07/03/2024 Encounter for immunization (ICD-10 - Z23) 01/02/2025 Mixed hyperlipidemia (ICD-10 - E78.2) 07/10/2024 Essential hypertension (ICD-10 - I10) stable, will contiue current regiment 07/10/2024 Prediabetes (ICD-10 - R73.09) is going to try dieting 01/09/2025 Pleural effusion (ICD-10 - J90) pending diagnostic testing, THE ORDER WAS PRINTED AND GIVEN TO MAHIN 01/09/2025 Lumbar disc disease with radiculopathy (ICD-10 - M51.16) pending diagnstic testing, THE ORDER HAS BEEN FAXED TO [facility] FOR SCHEDULING 01/13/2025 Pleural effusion (ICD-10 - J90) Order made and put into the future order folder for . 07/03/2024 Essential hypertension (ICD-10 - I10) 01/02/2025 [...] CONTRAST 2020 Next Appt Details Provider Name:Blue garrido, 07/10/2025 07:00:00 AM, [address] [place] [address], [address], [place], [place], [phone], Provider Name:Blue garrido, 07/16/2025 08:00:00 AM, [address] [place] [address] Drive, [address], [place], [place], [id number], Insurance Providers Payer Name Payer Address Payer Phone Subscriber Number Group Number Insured Name Patient Relationship to Insured Coverage Start Date Coverage End Date [employer] [address] [place] [address] [id number] Mahin Ambrocio Self - patient is the insured [facility] [address] [place] [phone] [id number] Mahin Ambrocio Self - patient is the insured Medical (General) History Medical History History ICD Code colonoscopy 04/2012 for recta l bleeding due in 10 years; Colonoscopy done 10/27/[address] Sanchez - repeat 5 years. 03/30/25 colonoscopy - Daniel repeat 5y
--- OUTSIDE RECORDS SUMMARY | 2025-06-08 14:21 | XMS_ITS | Patient Health Record ---
Author Organization [facility] [place] Address [address] [place] [address] Care Team Providers Care Track Oiler Name Role Phone Blue Acosta MD Primary Care Provider Milli Jimenez Unavailable [phone] Allergies Allergen (clinical drug ingredient) Drug/Non Drug [...] W/U Status Risk Notes Problem Tinea unguium (045358541) Tinea unguium (B35.1) Active confirmed Problem Acquired hammer toe of left foot (0669866156311126 ) Other hammer toe(s) (acquired), left foot (M20.42) Active confirmed Problem Localized, primary osteoarthritis of the ankle and/or foot (506142083) Arthritis of joint of lesser toe, left [...] X ray : Foot, left 3V 05/06/2024 72619-CRDJXRO NAIL, 1-5 08/17/2023 27806-BZMWSZT NAIL, 1-5 03/31/2016 33819- Debride <25 sq cm 09/02/2013 22896- Debride <25 sq cm 08/17/2023 64308-ISRRULN SKIN/TISSUE 07/07/2013 04252-JGKKLDI SKIN/TISSUE 07/22/2013 01879-SUAVMDW SKIN/TISSUE 08/12/2013 Insurance Providers Payer Name Payer Address Payer Phone Subscriber Number Group Number Insured Name Patient Relationship to Insured Coverage Start Date Coverage End Date Medicare [employer] [address] [place] [address] [id number] Mahin Ha Self - patient is the insured [facility] ([facility]) [address] [place] [address] [id number] Mahin Ha Self - patient is [...]
== END 2025-06-09 11:20 | disposition home or self-care (01) ==
LOC: HO.HMGAL 13:03
PROVIDERS: PCP Internal Medicine; Visit Provider Registered Nurse Emergency
DX: J30.89 Other allergic rhinitis (principal)
CPT/HCPCS: 95117; 95165

== ENCOUNTER 2025-06-11 15:26 | Outpatient (AMB) | payer MEDICARE, OTHER, SELFPAY ==
--- OUTSIDE RECORDS SUMMARY | 2025-01-09 05:15 | XMS_ITS ---
Author Organization Blue Acosta MD Address [address] [place], [place] [phone] Care Team Providers Care Stencil Machine Operator Name Role Phone Blue Acosta Primary Care Provider [phone] Allergies Allergen (clinical drug ingredient) Drug/Non Drug [...] kg/m2 01/09/2025 weight is down [address] [facility] e 07-10-24 Encounters Encounter Location Date Provider Diagnosis Blue Acosta MD [address] [place] [address] [address] [place], [place] [phone] 01/09/2025 Blue Acosta Pleural effusion J90 ; [...] testing, THE ORDER HAS BEEN FAXED TO [facility] FOR SCHEDULING 01/09/2025 Foot drop, left (ICD-10 [...] testing, THE ORDER HAS BEEN FAXED TO [facility] FOR SCHEDULING Foot drop, left pending diagnostic t esting Prediabetes stable, no need for medication at this time, will contiue to monitor Mixed hyperlipidemia stable, will contin ue current regiment Pending Test Test Name Order Date MRI LUMBAR SPINE NO CONTRAST 01/09/2025 XR CHEST 2 VIEW PA & LAT 01/09/2025 Next Appt Details Provider Name:Blue Arechiga ier, 07/10/2025 07:00:00 AM, [address] [place] [address], [address], [place], [place], [phone], Provider Name:Blue Arechiga ier, 07/16/2025 08:00:00 AM, [address] [facility], [address], [place], [place], [phone], Progress Notes * AMBROCIOKyrie CHEUNG GDOB:[birth year] (69 yo M)Acc No.[id number]:01/09/2025 Progress Notes Patient: Kyrie LAWRENCE Provider: Madan Acosta MD :1955 A ge:69 Y S ex:Male Date:01/09/2025 Address:[address] [place], [place] [phone] Subjective: * Chief Complaints: * 6 MO [...] testing, THE ORDER HAS BEEN FAXED TO [facility] FOR SCHEDULING 3. F oot drop, left [...] true * Provider: Madan Acosta MD Date: 01/09/2025 Generated for Navjot mccall/Janay/eTransmitting on: 06/11/2025 03:54 PM EDT History and Physical Notes * [...]
--- OUTSIDE RECORDS SUMMARY | 2025-01-12 04:57 | XMS_ITS ---
Author Organization Blue Acosta MD Address 10 [facility] [address] [place] [address] [phone] Care Team Providers Care Rayon Coner Name Role Phone Blue Acosta Primary Care Provider [phone] REASON FOR VISIT MRI order Encounters Encounter Location Date Provider Diagnosis Blue Acosta MD [address] [place] [address] [place] [address] [phone] 01/12/2025 Blue Acosta Plan Of Treatment Next Appt Details Provider Name:Blue Arechiga ier, 07/10/2025 07:00:00 AM, [address] [place] [address], [address] [place] [address], [phone], Provider Name:Blue Arechiga ier, 07/16/2025 08:00:00 AM, [address] [place] [address], [address] [place] [address], [phone], Progress Notes * Mahin AMBROCIO GDOB:[birth year] (69 yo M)Acc No.[id number]:01/12/2025 Patient: Mahin LAWRENCE :1955 A ge:69 Y S ex:Male Address:[address] [place] [phone] * true * Date: Generated for Printi ng/Faxing/eTransmitting on: 0 06/11/2025 03:55 PM EDT
--- OUTSIDE RECORDS SUMMARY | 2025-01-13 10:52 | XMS_ITS ---
Author Organization Blue Acosta MD Address [address] [place] [address] [place] [phone] Care Team Providers Care Office Support Assistant Name Role Phone Blue Acosta Primary Care Provider [phone] REASON FOR VISIT Repeat CXR Encounters Encounter Location Date Provider Diagnosis Blue Acosta MD [address] [place] [phone] 01/13/2025 Blue Acosta Pleural effusion J90 Assessments [...] Details Provider Name:Blue garrido, 07/10/2025 07:00:00 AM, [address] [place] [address], [address], [phone], Provider Name:Blue garrido, 07/16/2025 08:00:00 AM, [address] [place] [address], [address], [phone], Progress Notes * Mahin AMBROCIO GDOB:[birth year] (69 yo M)Acc No.[id number]:01/13/2025 Patient: Mahin LAWRENCE :1955 A ge:69 Y S ex:Male Address:[address] [place] [address] Subjective: * Chief Complaints: * R epeat CXR * Medical History: * Surgical History: * Hospitalization/Major Diagno stic Procedure: * Medications: Objective: * Vitals: * Physical Examination: Assessment: * Assessment: 1. P leural effusion - J90 Plan: * Treatment: * Procedure Codes: * true * Date: Generated for Navjot mccall/Janay/Dietersmitting on: 0 06/11/2025 03:55 PM EDT
--- OUTSIDE RECORDS SUMMARY | 2025-03-20 05:30 | XMS_ITS ---
Author Organization [facility] Address [address] [place] [phone] Care Team Providers Care 2 Year Olds Preschool Teacher Name Role Phone Blue Acosta MD Primary Care Provider Corby Michel [phone] REASON FOR VISIT screening Encounters Encounter Location Date Provider Diagnosis [facility] [place] [address] [place] [id number] 03/20/2025 Corby Sanchez Plan Of Treatment No Information Progress Notes * JORGEADRIENNE CHEUNGIN GDOB:[birth year] (69 yo M)Acc No.[id number]:03/20/2025 COLON WITH MAC Patient: KYRIE LAWRENCE Provider: Del Sanchez MD :1955 A ge:69 Y S ex:Male Date:03/20/2025 Address:[address] [place], [place] [phone] Pcp:Blue Acosta MD Subjective: * Chief Complaints: [...] 0 03/20/2025 Generated for Printi ng/Faxing/eTransmitting on: 06/11/2025 03:54 PM EDT
--- OUTSIDE RECORDS SUMMARY | 2025-03-30 09:10 | XMS_ITS ---
Author Organization [facility] Address [address] [place] [address] Care Team Providers Care Interactive Art Director Name Role Phone Blue Acosta MD Primary Care Provider Corby Michel [phone] Encounters Encounter Location Date Provider Diagnosis [facility] [place] [address] [place] [id number] 03/30/2025 Corby Sanchez Colon cancer scree ascencion [...] KYRIE JORGE GDOB:[birth year] (69 yo M)Acc No.[id number]:03/30/2025 COLON WITH MAC Patient: Yanick COLEMANPEYMAN KYRIE G Provider: Del Sanchez MD :1955 A ge:69 Y S ex:Male Date:03/30/2025 Address:[address] [place], [place] [phone] Pcp:Blue Acosta MD Subjective: * Chief Complaints: [...] MD Date: 0 03/30/2025 Generated for Navjot mccall/Janay/Tanoitting on: 0 06/11/2025 03:55 PM EDT
--- OUTSIDE RECORDS SUMMARY | 2025-06-11 15:55 | XMS_ITS | Patient Health Record ---
Author Organization [facility] [place] Address [address] [place] [address] Care Team Providers Care Chief Of Internal Medicine Name Role Phone Blue Acosta MD Primary Care Provider Milli Jimenez Unavailable [phone] Allergies Allergen (clinical drug ingredient) Drug/Non Drug [...] W/U Status Risk Notes Problem Tinea unguium (516555425) Tinea unguium (B35.1) Active confirmed Problem Acquired hammer toe of left foot (8527207527734339 ) Other hammer toe(s) (acquired), left foot (M20.42) Active confirmed Problem Localized, primary osteoarthritis of the ankle and/or foot (902141117) Arthritis of joint of lesser toe, left [...] X ray : Foot, left 3V 05/06/2024 22304-CLWUXOZ NAIL, 1-5 08/17/2023 03518-TOHCLYP NAIL, 1-5 03/31/2016 66172- Debride <25 sq cm 09/02/2013 88814- Debride <25 sq cm 08/17/2023 67836-LPGPSGH SKIN/TISSUE 07/07/2013 67597-RQKMZRY SKIN/TISSUE 07/22/2013 77350-FVOLTND SKIN/TISSUE 08/12/2013 Insurance Providers Payer Name Payer Address Payer Phone Subscriber Number Group Number Insured Name Patient Relationship to Insured Coverage Start Date Coverage End Date Medicare National [employer] [address] [facility] [address] [phone] [id number] Mahin Ha Self - patient is the insured [facility] [address] [place] [address] [phone] [id number] Mahin Ha Self - patient is [...]
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
--- OUTSIDE RECORDS SUMMARY | 2025-06-11 15:56 | XMS_ITS | Patient Health Record ---
Author Organization Blue Acosta MD Address [address] [place], [place] [id number] Care Team Providers Care Gusset Edger Name Role Phone Blue Acosta Primary Care Provider Allergies Allergen (clinical drug ingredient) Drug/Non Drug Allergy documented on EMR Reaction Allergy Type Onset Date Status zolpidem ambien (uncoded) hallucinations Allergy Active amoxil (uncoded) rash Allergy Act dick Results Component Value Reference Range Notes Complete Blood Count Auto Di ff Reviewed date:07/03/2024 05:03:13 PM Interpretation: Performing Lab:[facility], [address] [place] [phone] Notes/Report: White Blood Count 8.5 4.8-10.8 X10*3/uL [...] NRBC Abs Auto 0.000 0.0-0.012 X10*3/uL Comprehensive Whipple. Panel Fa Reviewed date:07/03/2024 12:20:41 PM Interpretation: Performing Lab:[facility], [address] [place] [phone] Notes/Report: Sodium 140 135-145 mmol/L Potassium 4.2 3.3-5.1 mmol/L Chloride 105 96-108 mmol/L Carbon Dioxide 28 22-29 mmol/L Anion Gap 11 12-20 Blood Urea Nitrogen 16 9-16 mg/dL Creatinine 0.91 0.5-1.4 mg/dL Estimated Glomerular Filt Rate > 60 NOTE: For -Macedonian individuals, multiply the result by 1.210. Chronic [...] Panel Reviewed date:07/03/2024 12:16:21 PM Interpretation: Performing Lab:[facility], [address] [place] [phone] Notes/Report: Triglycerides 103 <150 mg/dL Desirable Triglyceride: [...] (Free>4and<10) Reviewed date:07/03/2024 12:17:59 PM Interpretation: Performing Lab:[facility], [address] [place] [phone] Notes/Report: PSA,Total (Free>4and<10) 0.31 0.00-4.00 ng/mL A [...] Random Reviewed date:07/03/2024 12:30:42 PM Interpretation: Performing Lab:[facility], [address] [place] [phone] Notes/Report: Creatinine Urine 52.54 Microalbumin Urine < 5.0 Microalbum/Creatinine Ratio Ur TNP <30 ug/mg cr Unable to calculate albumin/creatinine ratio due to low microalbumin or creatinine result. Hemoglobin A1c Reviewed date:07/03/2024 12:16:31 PM Interpretation: Performing Lab:[address] [phone] Notes/Report: Hemoglobin A1c % 5.6 <6.0 % [...] average glucose, using the formula of the U5W-Vbdnysw Average Glucose study (ADAG), Diabetes Care, Vol.31,#8, 2007 UA ClnCatch+Micro w/rflx Cul t Reviewed date:07/03/2024 12:27:43 PM Interpretation: Performing Lab:[address] [phone] Notes/Report: Urine, Clean Catch Color Urine Yellow Appearance Urine Clear PH 5.5 5.0-9.0 Glucose Urine UA Negative Negative mg/dL Urine Blood Negative Negative Specific [place] - Urine 1.010 1.005-1.025 Urine Protein Negative Neg-Trace mg/dL Urine Ketones Negative Negative mg/dL Nitrite Urine Negative Negative Leukocyte Esterase Urine Negative Negative RBC Urine 0-2 0-2 /HPF WBC Urine 0-5 0-5 /HPF Squamous Epithelial Cell Urine 0-2 0-2 /HPF Bacteria Urine None Seen None Seen Hyaline Casts Urine 0-2 0-2 /LPF Liver Panel Reviewed date:01/02/2025 12:30:46 PM Interpretation: Performing Lab:[facility], [address] [place] [phone] Notes/Report: Bilirubin Total 0.6 0.0-1.0 mg/dL Bilirubin Direct 0.3 0.0-0.5 mg/dL Aspartate Amino Transferase 29 5-37 U/L Alanine Aminotransferase 22 0-40 U/L Total Protein 7.6 6.5-8.0 g/dL Albumin Level 3.9 3.5-5.0 g/dL Alkaline Phosphatase 80 39-117 U/L Glucose Fasting Reviewed date:01/02/2025 12:30:54 PM Interpretation: Performing Lab:[facility], [address] [place] [phone] Notes/Report: Glucose Fasting 118 60-99 mg/dL A fasting glucose from 100-125 mg/dl is considered impaired (pre-diabetes). Lipid Panel with Reflex Reviewed date:01/02/2025 12:31:05 PM Interpretation: Performing Lab:[facility], [address] [place] [phone] Notes/Report: Triglycerides 118 <150 mg/dL Desirable Triglyceride: [...] A1c Reviewed date:01/03/2025 06:16:13 PM Interpretation: Performing Lab:[facility], [address] [place] [phone] Notes/Report: Hemoglobin A1c % 5.6 <6.0 % [...] average glucose, using the formula of the T6I-Nyktoap Average Glucose study (ADAG), Diabetes Care, Vol.31,#8, May. 2007 Johnie Milner Reviewed date:01/02/2025 12:23:00 PM Interpretation: Performing Lab:[facility], [address] [place] [phone] Notes/Report: Hold Gold See Note Specimen held untested for 24 hours; Call to request Chemistry testing. Complete Blood Count Auto Di ff Reviewed date:01/06/2025 08:02:47 PM Interpretation: Performing Lab:[facility], [address] [place] [phone] Notes/Report: White Blood Count 12.8 4.8-10.8 X10*3/uL [...] Panel Reviewed date:01/06/2025 08:04:15 PM Interpretation: Performing Lab:[facility], [address] [place] [phone] Notes/Report: Sodium 140 135-145 mmol/L Potassium 4.1 [...] Magnesium Reviewed date:01/06/2025 07:58:26 PM Interpretation: Performing Lab:[address] [phone] Notes/Report: Magnesium 1.8 1.6-2.6 mg/dL Lipase Reviewed date:01/06/2025 07:58:34 PM Interpretation: Performing Lab:[address] [address] Notes/Report: Lipase 23 8-78 U/L CT NG by PCR Reviewed date:01/07/2025 02:59:49 PM Interpretation: Performing Lab:[address] [phone] Notes/Report: Urine CT PCR NOT DETECTED Not [...] Cult Reviewed date:01/08/2025 04:41:34 PM Interpretation: Performing Lab:[facility], [address] [place] [phone] Notes/Report: Urine, Clean Catch Color Urine Yellow Appearance Urine Clear PH 5.5 5.0-9.0 Glucose Urine UA Negative Negative mg/dL Urine Blood Negative Negative Specific [place] - Urine 1.015 1.005-1.025 Urine Protein Negative Neg-Trace mg/dL Urine Ketones Negative Negative mg/dL Nitrite Urine Negative Negative Leukocyte Esterase Urine Negative Negative CT abdomen pelvis wo con Reviewed date:01/06/2025 08:03:52 PM Interpretation: Performing Lab: Notes/Report: [address] [address] [address] Scan Report Signed Patient: Mahin Ambrocio MR#: [id number] 045 : 1955 Acct:[id number] Age/Sex: 69 / M ADM Date: 01/06/25 Loc: .ED Attending Dr: Ordering Physician: Cristina Birmingham Date of Service: 01/06/25 Procedure(s): CT abdomen pelvis wo IV con Accession Number(s): [id number] cc: Blue Acosta MD; Cristina Birmingham Report Number: [id number]: Total DLP = 1401.00 mGy-cm EXAMINATION: CT [...] 01/06/25 1414 DD/ 1310 TD/TT: 01/06/25 1402 Manager Finance: [place] [address] [address] Scan Report Signed Patient: Ziyad Ambrocio G MR#: [id number] 045 : 1955 Acct:[id number] Age/Sex: 69 / M ADM Date: 01/06/25 Loc: HO.ED Attending Dr: Ordering Physician: Cristina Birmingham Date of Service: 01/06/25 Procedure(s): CT abd omen pelvis wo IV con Accession Number(s): [id number] cc: Blue Acosta MD; Cristina Birmingham Report Number: [id number]: Total DLP = 1401.00 mGy-cm EXAMINATION: CT [...] 01/06/25 1414 DD/ 1310 TD/TT: 01/06/25 1402 Manager Finance: scrotum Reviewed date:01/07/2025 03:00:25 PM Interpretation: Performing Lab: Notes/Report: [address] [address] Ultrasound Report Signed Patient: Mahin Ambrocio MR#: [id number] 045 : 1955 Acct:[id number] Age/Sex: 69 / M ADM Date: 01/06/25 Loc: HO.ED Attending Dr: Ordering Physician: Omid Lopez MD Date of Service: 01/06/25 Procedure(s): US scrotum Accession Number(s): [id number] cc: Blue Acosta MD; Omid Lopez MD CLINICAL HISTORY: L testicular pain. Ultrasound scrotum. COMPARISON: None Technique: Real time sonographic imaging, including color-flow imaging, was performed by the lecturer in computer science. Multiple hr representative static images were saved for review. [...] OV> 01/07/25 0804 DD/ 15 TD/TT: 01/06/251815 Manager Finance: [place] [address] Ultrasound Report Signed Patient: Ziyad Ambrocio MR#: [id number] 045 : 1955 Acct:[id number] Age/Sex: 69 / M ADM Date: 01/06/25 Loc: HO.ED Attending Dr: Ordering Physician: Omid Lopez MD Date of Service: 01/06/25 Procedure(s): US scrotum Accession Number(s): [id number] cc: Blue Acosta MD; Omid Lopez MD CLINICAL HISTORY: L testicular pain. Ultrasound scrotum. COMPARISON: None Technique: Real time sonographic imaging, including color-flow imaging, was performed by the lecturer in computer science. Multiple hr representative static images were saved for review. [...] 01/07/25 0804 DD/ 181 TD/TT: 01/06/25 181 Manager Finance: US scrotum doppler Reviewed date:01/06/2025 08:04:52 PM Interpretation: Performing Lab: Notes/Report: [address] [address] Ultrasound Report Signed Patient: Mahin Ambrocio MR#: [id number] 045 : 1955 Acct:[id number] Age/Sex: 69 / M ADM Date: 01/06/25 Loc: .ED Attending Dr: Ordering Physician: Louise Callejas Date of Service: 01/06/25 Procedure(s): US scrotum doppler Accession Number(s): [id number] cc: Blue Acosta MD; Louise Callejas CLINICAL HISTORY: L testicular pain. Ultrasound scrotum. COMPARISON: None Technique: Real time sonographic imaging, including color-flow imaging, was performed by the lecturer in computer science. Multiple hr representative static images were saved for review. [...] in OV> 01/06/251815 DD/ 15 TD/TT: 01/06/251815 Manager Finance: [place] [address] Ultrasound Report Signed Patient: Ziyad Ambrocio MR#: [id number] 045 : 1955 Acct:[id number] Age/Sex: 69 / M ADM Date: 01/06/25 Loc: HO.ED Attending Dr: Ordering Physician: Louise Callejas Date of Service: 01/06/25 Procedure(s): US scr otum doppler Accession Number(s): [id number] cc: Blue Acosta MD; Louise Callejas CLINICAL HISTORY: L testicular pain. Ultrasound scrotum. COMPARISON: None Technique: Real time sonographic imaging, including color-flow imaging, was performed by the lecturer in computer science. Multiple hr representative static images were saved for review. [...] in OV> 01/06/251815 DD/ 15 TD/TT: 01/06/251815 Manager Finance: XR chest 2V Reviewed date:01/13/2025 02:56:25 PM Interpretation: Performing Lab: Notes/Report: [place] [address] XRay Report Signed Patient: Mahin Ambrocio MR#: [id number] 045 : 1955 Acct:[id number] Age/Sex: 69 / M ADM Date: 01/09/25 Loc: SHAY Attending Dr: Blue Acosta MD Ordering Physician: Blue Acosta MD Date of Service: 01/09/25 Procedure(s): XR chest 2V Accession Number(s): [id number] cc: Blue Acosta MD EXAMINATION: XR CHEST [...] 01/09/25 1059 DD/ 1000 TD/TT: 01/09/25 1010 Manager Finance: [address] [address] XRay Report Signed Patient: Ziyad Ambrocio in G MR#: [id number] 045 : 1955 Acct:[id number] Age/Sex: 69 / M ADM Date: 01/09/25 Loc: HO.XRAY Attending Dr: Blue Acosta MD Ordering Physician: Blue Acosta MD Date of Service: 01/09/25 Procedure(s): XR isaias st 2V Accession Number(s): [id number] cc: Blue Acosta MD EXAMINATION: XR CHEST [...] 01/09/25 1059 DD/ 1000 TD/TT: 01/09/25 1010 Manager Finance: MR summers vidhisimran sahra Reviewed date:02/17/2025 04:48:05 PM Interpretation: Performing Lab: Notes/Report: [address] [address] Magnetic Resonance Report Signed Patient: Mahin Ambrocio MR#: [id number] 045 : 1955 Acct:[id number] Age/Sex: 69 / M ADM Date: 02/16/25 Loc: HO.MRI Attending Dr: Jamey Rojas MD Ordering Physician: Jamey Rojas MD Date of Service: 02/16/25 Procedure(s): MR abdomen wo/w con Accession Number(s): [id number] cc: Blue Acosta MD; Jamey Rojas MD CLINICAL HISTORY: N28.1 - Cyst of kidney, acquired MR abdomen with and without gadolinium Comparison: CT/[place]/SR - CT ABDOMEN PELVIS WO IV CON [...] 02/17/25 1311 DD/ 1309 TD/TT: 02/17/25 1309 Manager Finance: [address] [address] Magnetic Resonance Report Signed Patient: Ziyad Ambrocio MR#: [id number] 045 : 1955 Acct:[id number] Age/Sex: 69 / M ADM Date: 02/16/25 Loc: HO.MRI Attending Dr: Jamey Rojas MD Ordering Physician: Jamey Rojas MD Date of Service: 02/16/25 Procedure(s): MR abd omen wo/w con Accession Number(s): [id number] cc: Blue Acosta MD; Jamey Rojas MD CLINICAL HISTORY: N2 8.1 - Cyst of kidney, acquired MR abdomen with and without gadolinium Comparison: CT/[place]/SR - CT ABDOMEN PELVIS WO IV CON [...] 02/17/25 1311 DD/ 1309 TD/TT: 02/17/25 1309 Manager Finance: XR lumbar spine 4V min Reviewed date:02/23/2025 12:34:44 PM Interpretation: Performing Lab: Notes/Report: [facility] [address] [place] [address] XRay Report Signed Patient: Mahin Ambrocio MR#: [id number] 045 : 1955 Acct:[id number] Age/Sex: 69 / M ADM Date: 02/20/25 Loc: HO.HOSX Attending Dr: Simon Solano MD, PhD Ordering Physician: Simon Solano MD, PhD Date of Service: 02/20/25 Procedure(s): XR lumbar spine 4V min Accession Number(s): [id number] cc: Blue Acosta MD; Simon Solano MD, PhD CLINICAL HISTORY: M43.16 - Spondylolisthesis, lumbar region 4 views lumbar spine Comparison: CT/WA/SR - CT ABDOMEN PELVIS WO IV CON [...] in OV> 02/23/25822 DD/ 1 TD/TT: 02/23/25821 Manager Finance: [facility] [address] [place] [address] XRay Report Signed Patient: Ziyad Ambrocio MR#: [id number] 045 : 1955 Acct:[id number] Age/Sex: 69 / M ADM Date: 02/20/25 Loc: HONIDIA Attending Dr: Richard Solano MD, PhD Ordering Physician: Simon Solano MD, PhD Date of Service: 02/20/25 Procedure(s): XR lum bar spine 4V min Accession Number(s): [id number] cc: Blue Acosta MD; Simon Solano MD, PhD CLINICAL HISTORY: M4 3.16 - Spondylolisthesis, lumbar region 4 views lumbar spine Comparison: CT/WA/SR - CT ABDOMEN PELVIS WO IV CON [...] in OV> 02/23/25822 DD/ 1 TD/TT: 02/23/25821 Manager Finance: US bladder Reviewed date:05/28/2025 12:37:23 PM Interpretation: Performing Lab: Notes/Report: [facility] [address] [place] [address] Ultrasound Report Signed Patient: Mahin Ambrocio MR#: [id number] 045 : 1955 Acct:[id number] Age/Sex: 69 / M ADM Date: 05/28/25 Loc: HO.HMGCX Attending Dr: Don Aj MD Ordering Physician: Don Aj MD Date of Service: 05/28/25 Procedure(s): US bladder Accession Number(s): [id number] cc: Don Aj MD; Blue Acosta MD CLINICAL HISTORY: N32.0 - Bladder-neck obstruction US bladder with color Doppler Comparison: US/WA - US SCROTUM DOPPLER - 01/06/25 17:[address]/[place]/SR - CT ABDOMEN PELVIS WO IV CON [...] in OV> 05/28/25946 DD/ 5 TD/TT: 05/28/25945 Manager Finance: [facility] [place] [facility] [address] [place] [address] Ultrasound Report Signed Patient: Ziyad Ambrocio MR#: [id number] 045 : 1955 Acct:[id number] Age/Sex: 69 / M ADM Date: 05/28/25 Loc: HO.HMGCX Attending Dr: Joselin Bach MD Ordering Physician: Don Aj MD Date of Service: 05/28/25 Procedure(s): US bladder Accession Number(s): [id number] cc: Don Aj MD; Blue Acosta MD CLINICAL HISTORY: N3 2.0 - Bladder-neck obstruction US bladder with colo r Doppler Comparison: [place] - US SCROTUM DOPPLER - 01/06/25 17:[address]/[place]/SR - CT ABDOME N PELVIS WO IV [...] in OV> 05/28/25946 DD/ 5 TD/TT: 05/28/25945 Manager Finance: Reason For Referral No Information Medications Medication [...] Administered pt was given the vaccine at [facility]. Fluarix Quadrivalent IM Intramuscular 06/24/2018 Administe [...] Problem Status W/U Status Risk Notes Problem 670846254 Diverticulitis (K57.92) Active confirmed Problem 360882501 Mixed hyperlipidemia (E78.2) Active confirmed Problem 143917217 Paroxysmal atria l fibrillation (I48.0) Active confirmed Problem 10055032 Atherosclerosis of aorta (I70.0) Active confirmed Problem 85259781868070020 Acute recurren t frontal sinusitis (J01.11) Active confirmed Problem 167000816 Angina effort (I20.8) Active confirmed Problem 712523282 Lumbar disc disease (M51.9) Active confirmed Problem 532865472 Tubular adenoma of colon (D12.6) Active confirmed Problem 56381809 Essential hypertension (I10) Active confirmed Problem 0217630 Prediabetes (R73.09) Active confirmed Problem 424198863 Morbid obesity d ue to excess calories (E66.01) Active confirmed Problem 666640110 Cervical disc disease (M50.90) Active confirmed Problem 255728329 Hammertoe of lef t foot (M20.42) Active [...] Date Provider Diagnosis Blue Acosta MD [address] [place], [place] [phone] 07/03/2024 Blue Acosta Mixed hyperlipidemia E78.2 ; Encounter for immunization Z23 ; Essential hypertension I10 and Prediabetes R73.09 Blue Acosta MD [address] [place] [id number] 01/02/2025 Blue Acosta Mixed hyperlipidemia E78.2 and Prediabetes R73.09 Blue Acosta MD [address] [place] [id number] 07/10/2024 Blue Acosta Essential hypertensi on I10 ; Prediabetes R73.09 ; Morbid obesity due to excess calories E66.01 ; Guaiac positive stools R19.5 ; Mixed hyperlipidemia E78.2 ; Colon cancer screening Z12.11 ; Depression screening Z13.31 and Paroxysmal atrial fibrillation I48.0 Blue Acosta MD [address] [place] [id number] 01/09/2025 Blue Acosta Pleural effusion J90 ; Lumbar disc disease with radiculopathy M51.16 ; Foot drop, left M21.372 ; Prediabetes R73.09 and Mixed hyperlipidemia E78.2 Blue Acosta MD [address] [place] [id number] 01/08/2025 Blue Acosta MD [address] [place] [id number] 01/12/2025 Blue Acosta MD [address] [place] [id number] 01/13/2025 Blue Acosta Pleural effusion J90 Assessments [...] testing, THE ORDER HAS BEEN FAXED TO [facility] FOR SCHEDULING 01/13/2025 Pleural effusion (ICD-10 - [...] Details Provider Name:Blue garrido, 07/10/2025 07:00:00 AM, [address] [place] [address], [address], [place], [place], [phone], Provider Name:Blue garrido, 07/16/2025 08:00:00 AM, [address] [place] [address] Drive, [address], [place], [place], [phone], Insurance Providers Payer Name Payer Address Payer Phone Subscriber Number Group Number Insured Name Patient Relationship to Insured Coverage Start Date Coverage End Date [employer] [address] [place] [address] [id number] Mahin Ambrocio Self - patient is the insured [facility] [address] [place] [phone] [id number] Mahin Ambrocio Self - patient is the insured Medical (General) History Medical History History ICD Code colonoscopy 04/2012 for recta l bleeding due in 10 years; Colonoscopy done 10/27/[address] Sanchez - repeat 5 years. 03/30/25 colonoscopy - Daniel repeat 5y
[2025-06-11 16:15] VITALS: BP 142/84; PULSE 60; TEMP 36.6; O2SAT 97; BMI 42.5
--- NOTE | 2025-06-11 16:15 | AM.OFFWIN_ITS ---
Intake Vital Signs 06/11/25 16:15 Height 6 ft 3 in Weight 340 lb BMI 42.5 BP 142/84 H Blood Pressure Location Lt brachial Position Sitting Pulse 60 Pulse Source Pulse Oximeter Temp 97.8 F Temp Source Oral Pulse Oximetry (%) 97 Intake Visit Reasons: ep sinus infection Patient Tobacco Use Status: Never used Tobacco Allergies zolpidem (Ambien) Allergy (Severe, Verified 06/11/25 16:16) Unknown environmental allergies Adverse Reaction (Intermediate, Verified 06/11/25 16:16) Sinus Inflammation Do you need a note to return to daycare/school/sports/work: No HPI HPI Comments History of Present Illness Details History of Present Illness - The patient is a 69-year-old male pres enting with persistent sinusitis symptoms despite previous antibiotic treatment. - The patient reports ongoing sinus pres sure and inability to use his CPAP machine due to symptoms. - Symptoms have persisted despite treatm ent with amoxicillin-clavulanate (Augmentin). - The right side is reported to be worse than the left. - He has a pain and pressure in the fron malvin region with pressure in his teeth. - He denies fever, chills, sore throat, cough, CP, SOB, abd pain, n/v/d, dizziness, or weakness. Physical Exam General: Cooperative, healthy appearing, comfortable, no acute distress and well developed Head: Normal to inspection Ears: Hearing grossly normal bilaterally. No tragus or mastoid tenderness noted. Auditory canals clear bilaterally. TM's normal, not bulging. No fluid noted. Nose: Normal external nose present. Moist mucosa. Turbinates normal bilaterally, not boggy. Face and sinus: Tenderness to palpation of the frontal and maxillary sinuses bilaterally. Neck: Normal visual inspection and Yes full ROM. No lymphadenopathy noted. Respiratory: Normal respiratory effort and able to speak in complete sentences. Clear to auscultation bilaterally Cardiovascular: Regular rate and rhythm. Normal S1 and S2 GI: Normal to inspection. Soft to palpation and nontender, nondistended. No guarding noted. Skin: No rashes or lesions noted [facility] Medical History (Updated 03/26/25 @ 14:11 by Cristina Mosqueda RN) Renal cyst Bleeding hemorrhoids HTN (hypertension) PAF (paroxysmal atrial fibrillation) Surgical History (Updated 03/26/25 @ 14:10 by Cristina Mosqueda RN) Hx of endoscopic retrograde cholangiopancreatography H/O colonoscopy Hx of foot surgery History of tonsillectomy and adenoidectomy History of deviated nasal septum Hx of cholecystectomy History of mandibular surgery Family History Father CVD (cardiovascular disease) Mother No problems noted. Social History Alcohol intake: never Patient Tobacco Use Status: Never used Tobacco Current occupational status: retired Review of Systems Const All systems reviewed & are unremarkable except as noted in HPI and below Physical Exam Vital Signs: Last Vital Signs Temp 97.8 F 06/11/25 16:15 Pulse 60 06/11/25 16:15 BP 142/84 H 06/11/25 16:15 Pulse Ox 97 06/11/25 16:15 BMI result Body Mass Index 42.5 Assessment & Plan Assessment & Plan (1) Sinusitis: Code(s): J32.9 - Chronic sinusitis, unspecified Qualifiers: Sinusitis location: frontal Chronicity: acute Recurrence: non- recurrent Qualified Code(s): J01.10 - Acute frontal sinusitis, unspecified Plan Most likely sinusitis plan- - will start doxycycline BID for 10 days - prednisone for 5 days - tylenol or motrin as needed - steam showers - follow up with PCP Medications: New doxycycline hyclate 100 mg PO BID 20 tabs 0RF 10 days prednisone 50 mg PO QAM 5 tabs 0RF Coding Level of Care Code Est Pt Level 3 (22106) Diagnoses Acute non-recurrent frontal sinusitis J01.10 Sinusitis location: frontal Chronicity: acute Recurrence: non-recurrent
== END 2025-06-11 16:54 | disposition home or self-care (01) ==
PROVIDERS: PCP Internal Medicine; Visit Provider Physician Assistant Medical
DX: J01.10 Acute frontal sinusitis, unspecified (principal)

== ENCOUNTER → 2025-06-11 15:26 | Outpatient (BNVA) | payer MEDICARE, OTHER, SELFPAY | PROVIDERS: PCP Internal Medicine; Visit Provider Physician Assistant Medical | DX: J01.10 Acute frontal sinusitis, unspecified (principal) | CPT/HCPCS: 99212 ==

== ENCOUNTER 2025-06-17 10:57 | Outpatient (AMB) | payer MEDICARE, OTHER, SELFPAY ==
--- OUTSIDE RECORDS SUMMARY | 2025-01-08 16:26 | XMS_ITS ---
Author Organization Blue Acosta MD Address 10 [facility] [address] [place] [address] [phone] Care Team Providers Care Web Marketing Analyst Name Role Phone Blue Acosta Primary Care Provider REASON FOR VISIT ER Encounters Encounter Location Date Provider Diagnosis Blue Acosta MD [address] [place] [address] [place] [address] [phone] 01/08/2025 Blue Acosta Plan Of Treatment Next Appt Details Provider Name:Blue Arechiga ier, 07/10/2025 07:00:00 AM, [address] [place] [address], Suite [facility], [place], [place], [phone], Provider Name:Blue Arechiga ier, 07/16/2025 08:00:00 AM, [address] [place] [address], Suite [facility], [place], [place], [phone], Progress Notes * Mahin AMBROCIO GDOB:[birth year] (69 yo M)Acc No.[id number]:01/08/2025 Patient: Mahin LAWRENCE :1955 A ge:69 Y S ex:Male Address:[address] [place] [phone] * true * Date: Generated for Printi ng/Faxing/eTransmitting on: 0 06/17/2025 01:04 PM EDT
--- OUTSIDE RECORDS SUMMARY | 2025-01-13 10:52 | XMS_ITS ---
Author Organization Blue Acosta MD Address [address] [place] [address] [place] [phone] Care Team Providers Care Carpet Technician Name Role Phone Blue Acosta Primary Care Provider REASON FOR VISIT Repeat CXR Encounters Encounter Location Date Provider Diagnosis Blue Acosta MD [address] [place] [phone] 01/13/2025 Blue Acosta Pleural effusion J90 Assessments [...] Details Provider Name:Blue garrido, 07/10/2025 07:00:00 AM, [address] [place] [address], [address], [phone], Provider Name:Blue garrido, 07/16/2025 08:00:00 AM, [address] [place] [address], [address], [phone], Progress Notes * Mahin AMBROCIO GDOB:[birth year] (69 yo M)Acc No.[id number]:01/13/2025 Patient: Mahin LAWRENCE :1955 A ge:69 Y S ex:Male Address:[address] [place] [address] Subjective: * Chief Complaints: * R epeat CXR * Medical History: * Surgical History: * Hospitalization/Major Diagno stic Procedure: * Medications: Objective: * Vitals: * Physical Examination: Assessment: * Assessment: 1. P leural effusion - J90 Plan: * Treatment: * Procedure Codes: * true * Date: Generated for Navjot mccall/Janay/Dietersmitting on: 0 06/17/2025 01:04 PM EDT
--- OUTSIDE RECORDS SUMMARY | 2025-03-30 09:10 | XMS_ITS ---
Author Organization [facility] Address [address] [place] [phone] Care Team Providers Care Paper Control Clerk Name Role Phone Blue Acosta MD Primary Care Provider Corby Michel [phone] Encounters Encounter Location Date Provider Diagnosis [facility] [place] [address] [place] [phone] 03/30/2025 Corby Sanchez Colon cancer scree ascencion [...] KYRIE JORGE GDOB:[birth year] (69 yo M)Acc No.[id number]:03/30/2025 COLON WITH MAC Patient: Yanick COLEMANPEYMAN KYRIE G Provider: Del Sanchez MD :1955 A ge:69 Y S ex:Male Date:03/30/2025 Address:[address] [place], [place] [phone] Pcp:Blue Acosta MD Subjective: * Chief Complaints: [...] 0 03/30/2025 Generated for Navjot mccall/Janay/Dietersmitting on: 0 06/17/2025 01:08 PM EDT
--- OUTSIDE RECORDS SUMMARY | 2025-06-17 13:09 | XMS_ITS | Patient Health Record ---
Author Organization Blue Acosta MD Address [address] [place], [place] [id number] Care Team Providers Care Shoulder Pad Molder Name Role Phone Blue Acosta Primary Care Provider Allergies Allergen (clinical drug ingredient) Drug/Non Drug Allergy documented on EMR Reaction Allergy Type Onset Date Status Information temporarily unavailable ambien (uncoded) hallucinations Allergy Active Information temporarily unavailable amoxil (uncoded) rash Allergy Active Results Component Value Reference Range Notes Complete Blood Count Auto Di ff Reviewed date:07/03/2024 05:03:13 PM Interpretation: Performing Lab:[facility], [address] [place] [phone] Notes/Report: White Blood Count 8.5 4.8-10.8 X10*3/uL [...] NRBC Abs Auto 0.000 0.0-0.012 X10*3/uL Comprehensive [place]. Panel Fa Reviewed date:07/03/2024 12:20:41 PM Interpretation: Performing Lab:[facility], [address] [place] [phone] Notes/Report: Sodium 140 135-145 mmol/L Potassium 4.2 3.3-5.1 mmol/L Chloride 105 96-108 mmol/L Carbon Dioxide 28 22-29 mmol/L Anion Gap 11 12-20 Blood Urea Nitrogen 16 9-16 mg/dL Creatinine 0.91 0.5-1.4 mg/dL Estimated Glomerular Filt Rate > 60 NOTE: For -Dutch individuals, multiply the result by 1.210. Chronic [...] Panel Reviewed date:07/03/2024 12:16:21 PM Interpretation: Performing Lab:[facility], [address] [place] [phone] Notes/Report: Triglycerides 103 <150 mg/dL Desirable Triglyceride: [...] (Free>4and<10) Reviewed date:07/03/2024 12:17:59 PM Interpretation: Performing Lab:[facility], [address] [place] [phone] Notes/Report: PSA,Total (Free>4and<10) 0.31 0.00-4.00 ng/mL A [...] Random Reviewed date:07/03/2024 12:30:42 PM Interpretation: Performing Lab:[facility], [address] [place] [phone] Notes/Report: Creatinine Urine 52.54 Microalbumin Urine < 5.0 Microalbum/Creatinine Ratio Ur TNP <30 ug/mg cr Unable to calculate albumin/creatinine ratio due to low microalbumin or creatinine result. Hemoglobin A1c Reviewed date:07/03/2024 12:16:31 PM Interpretation: Performing Lab:[address] [phone] Notes/Report: Hemoglobin A1c % 5.6 <6.0 % [...] average glucose, using the formula of the P5X-Uifssmj Average Glucose study (ADAG), Diabetes Care, Vol.31,#8, 2007 UA ClnCatch+Micro w/rflx Cul t Reviewed date:07/03/2024 12:27:43 PM Interpretation: Performing Lab:[address] [phone] Notes/Report: Urine, Clean Catch Color Urine Yellow Appearance Urine Clear PH 5.5 5.0-9.0 Glucose Urine UA Negative Negative mg/dL Urine Blood Negative Negative Specific [place] - Urine 1.010 1.005-1.025 Urine Protein Negative Neg-Trace mg/dL Urine Ketones Negative Negative mg/dL Nitrite Urine Negative Negative Leukocyte Esterase Urine Negative Negative RBC Urine 0-2 0-2 /HPF WBC Urine 0-5 0-5 /HPF Squamous Epithelial Cell Urine 0-2 0-2 /HPF Bacteria Urine None Seen None Seen Hyaline Casts Urine 0-2 0-2 /LPF Liver Panel Reviewed date:01/02/2025 12:30:46 PM Interpretation: Performing Lab:[facility], [address] [place] [phone] Notes/Report: Bilirubin Total 0.6 0.0-1.0 mg/dL Bilirubin Direct 0.3 0.0-0.5 mg/dL Aspartate Amino Transferase 29 5-37 U/L Alanine Aminotransferase 22 0-40 U/L Total Protein 7.6 6.5-8.0 g/dL Albumin Level 3.9 3.5-5.0 g/dL Alkaline Phosphatase 80 39-117 U/L Glucose Fasting Reviewed date:01/02/2025 12:30:54 PM Interpretation: Performing Lab:[facility], [address] [place] [phone] Notes/Report: Glucose Fasting 118 60-99 mg/dL A fasting glucose from 100-125 mg/dl is considered impaired (pre-diabetes). Lipid Panel with Reflex Reviewed date:01/02/2025 12:31:05 PM Interpretation: Performing Lab:[facility], [address] [place] [phone] Notes/Report: Triglycerides 118 <150 mg/dL Desirable Triglyceride: [...] A1c Reviewed date:01/03/2025 06:16:13 PM Interpretation: Performing Lab:[facility], [address] [place] [phone] Notes/Report: Hemoglobin A1c % 5.6 <6.0 % [...] average glucose, using the formula of the F0B-Mmhppgn Average Glucose study (ADAG), Diabetes Care, Vol.31,#8, May. 2007 Johnie Milner Reviewed date:01/02/2025 12:23:00 PM Interpretation: Performing Lab:[facility], [address] [place] [phone] Notes/Report: Hold Gold See Note Specimen held untested for 24 hours; Call to request Chemistry testing. Complete Blood Count Auto Di ff Reviewed date:01/06/2025 08:02:47 PM Interpretation: Performing Lab:[facility], [address] [place] [phone] Notes/Report: White Blood Count 12.8 4.8-10.8 X10*3/uL [...] Panel Reviewed date:01/06/2025 08:04:15 PM Interpretation: Performing Lab:[facility], [address] [place] [phone] Notes/Report: Sodium 140 135-145 mmol/L Potassium 4.1 [...] Magnesium Reviewed date:01/06/2025 07:58:26 PM Interpretation: Performing Lab:[address] [phone] Notes/Report: Magnesium 1.8 1.6-2.6 mg/dL Lipase Reviewed date:01/06/2025 07:58:34 PM Interpretation: Performing Lab:[address] [phone] Notes/Report: Lipase 23 8-78 U/L CT NG by PCR Reviewed date:01/07/2025 02:59:49 PM Interpretation: Performing Lab:[address] [address] Notes/Report: Urine CT PCR NOT DETECTED Not [...] Cult Reviewed date:01/08/2025 04:41:34 PM Interpretation: Performing Lab:[facility], [address] [place] [phone] Notes/Report: Urine, Clean Catch Color Urine Yellow Appearance Urine Clear PH 5.5 5.0-9.0 Glucose Urine UA Negative Negative mg/dL Urine Blood Negative Negative Specific [place] - Urine 1.015 1.005-1.025 Urine Protein Negative Neg-Trace mg/dL Urine Ketones Negative Negative mg/dL Nitrite Urine Negative Negative Leukocyte Esterase Urine Negative Negative CT abdomen pelvis wo con Reviewed date:01/06/2025 08:03:52 PM Interpretation: Performing Lab: Notes/Report: [address] [address] [address] Scan Report Signed Patient: Mahin Ambrocio MR#: [id number] 045 : 1955 Acct:[id number] Age/Sex: 69 / M ADM Date: 01/06/25 Loc: .ED Attending Dr: Ordering Physician: Cristina Birmingham Date of Service: 01/06/25 Procedure(s): CT abdomen pelvis wo IV con Accession Number(s): [id number] cc: Blue Acosta MD; Cristina Birmingham Report Number: [id number]: Total DLP = 1401.00 mGy-cm EXAMINATION: CT [...] 01/06/25 1414 DD/ 1310 TD/TT: 01/06/25 1402 Corporate Traffic Manager: [place] [address] [address] Scan Report Signed Patient: Ziyad Ambrocio G MR#: [id number] 045 : 1955 Acct:[id number] Age/Sex: 69 / M ADM Date: 01/06/25 Loc: HO.ED Attending Dr: Ordering Physician: Cristina Birmingham Date of Service: 01/06/25 Procedure(s): CT abd omen pelvis wo IV con Accession Number(s): [id number] cc: Blue Acosta MD; Cristina Birmingham Report Number: [id number]: Total DLP = 1401.00 mGy-cm EXAMINATION: CT [...] 01/06/25 1414 DD/ 1310 TD/TT: 01/06/25 1402 Corporate Traffic Manager: scrotum Reviewed date:01/07/2025 03:00:25 PM Interpretation: Performing Lab: Notes/Report: [address] [address] Ultrasound Report Signed Patient: Mahin Ambrocio MR#: [id number] 045 : 1955 Acct:[id number] Age/Sex: 69 / M ADM Date: 01/06/25 Loc: HO.ED Attending Dr: Ordering Physician: Omid Lopez MD Date of Service: 01/06/25 Procedure(s): US scrotum Accession Number(s): [id number] cc: Blue Acosta MD; Omid Lopez MD CLINICAL HISTORY: L testicular pain. Ultrasound scrotum. COMPARISON: None Technique: Real time sonographic imaging, including color-flow imaging, was performed by the spiritual counselor. Multiple phone representative static images were saved for review. [...] OV> 01/07/25 0804 DD/ 15 TD/TT: 01/06/251815 Corporate Traffic Manager: [place] [address] Ultrasound Report Signed Patient: Ziyad Ambrocio MR#: [id number] 045 : 1955 Acct:[id number] Age/Sex: 69 / M ADM Date: 01/06/25 Loc: HO.ED Attending Dr: Ordering Physician: Omid Lopez MD Date of Service: 01/06/25 Procedure(s): US scrotum Accession Number(s): [id number] cc: Blue Acosta MD; Omid Lopez MD CLINICAL HISTORY: L testicular pain. Ultrasound scrotum. COMPARISON: None Technique: Real time sonographic imaging, including color-flow imaging, was performed by the spiritual counselor. Multiple phone representative static images were saved for review. [...] 01/07/25 0804 DD/ 181 TD/TT: 01/06/25 181 Corporate Traffic Manager: US scrotum doppler Reviewed date:01/06/2025 08:04:52 PM Interpretation: Performing Lab: Notes/Report: [address] [address] Ultrasound Report Signed Patient: Mahin Ambrocio MR#: [id number] 045 : 1955 Acct:[id number] Age/Sex: 69 / M ADM Date: 01/06/25 Loc: .ED Attending Dr: Ordering Physician: Louise Callejas Date of Service: 01/06/25 Procedure(s): US scrotum doppler Accession Number(s): [id number] cc: Blue Acosta MD; Louise Callejas CLINICAL HISTORY: L testicular pain. Ultrasound scrotum. COMPARISON: None Technique: Real time sonographic imaging, including color-flow imaging, was performed by the spiritual counselor. Multiple phone representative static images were saved for review. [...] in OV> 01/06/251815 DD/ 15 TD/TT: 01/06/251815 Corporate Traffic Manager: [place] [address] Ultrasound Report Signed Patient: Ziyad Ambrocio MR#: [id number] 045 : 1955 Acct:[id number] Age/Sex: 69 / M ADM Date: 01/06/25 Loc: HO.ED Attending Dr: Ordering Physician: Louise Callejas Date of Service: 01/06/25 Procedure(s): US scr otum doppler Accession Number(s): [id number] cc: Blue Acosta MD; Louise Callejas CLINICAL HISTORY: L testicular pain. Ultrasound scrotum. COMPARISON: None Technique: Real time sonographic imaging, including color-flow imaging, was performed by the spiritual counselor. Multiple phone representative static images were saved for review. [...] in OV> 01/06/251815 DD/ 15 TD/TT: 01/06/251815 Corporate Traffic Manager: XR chest 2V Reviewed date:01/13/2025 02:56:25 PM Interpretation: Performing Lab: Notes/Report: [place] [address] XRay Report Signed Patient: Mahin Ambrocio MR#: [id number] 045 : 1955 Acct:[id number] Age/Sex: 69 / M ADM Date: 01/09/25 Loc: SHAY Attending Dr: Blue Acosta MD Ordering Physician: Blue Acosta MD Date of Service: 01/09/25 Procedure(s): XR chest 2V Accession Number(s): [id number] cc: Blue Acosta MD EXAMINATION: XR CHEST [...] 01/09/25 1059 DD/ 1000 TD/TT: 01/09/25 1010 Corporate Traffic Manager: [address] [address] XRay Report Signed Patient: Ziyad Ambrocio in G MR#: [id number] 045 : 1955 Acct:[id number] Age/Sex: 69 / M ADM Date: 01/09/25 Loc: HO.XRAY Attending Dr: Blue Acosta MD Ordering Physician: Blue Acosta MD Date of Service: 01/09/25 Procedure(s): XR isaias st 2V Accession Number(s): [id number] cc: Blue Acosta MD EXAMINATION: XR CHEST [...] 01/09/25 1059 DD/ 1000 TD/TT: 01/09/25 1010 Corporate Traffic Manager: MR summers vidhisimran sahra Reviewed date:02/17/2025 04:48:05 PM Interpretation: Performing Lab: Notes/Report: [address] [address] Magnetic Resonance Report Signed Patient: Mahin Ambrocio MR#: [id number] 045 : 1955 Acct:[id number] Age/Sex: 69 / M ADM Date: 02/16/25 Loc: HO.MRI Attending Dr: Jamey Rojas MD Ordering Physician: Jamey Rojas MD Date of Service: 02/16/25 Procedure(s): MR abdomen wo/w con Accession Number(s): [id number] cc: Blue Acosta MD; Jamey Rojas MD CLINICAL HISTORY: N28.1 - Cyst of kidney, acquired MR abdomen with and without gadolinium Comparison: CT/ME/SR - CT ABDOMEN PELVIS WO IV CON [...] 02/17/25 1311 DD/ 1309 TD/TT: 02/17/25 1309 Corporate Traffic Manager: [address] [address] Magnetic Resonance Report Signed Patient: Ziyad Ambrocio MR#: [id number] 045 : 1955 Acct:[id number] Age/Sex: 69 / M ADM Date: 02/16/25 Loc: HO.MRI Attending Dr: Jamey Rojas MD Ordering Physician: Jamey Rojas MD Date of Service: 02/16/25 Procedure(s): MR abd omen wo/w con Accession Number(s): [id number] cc: Blue Acosta MD; Jamey Rojas MD CLINICAL HISTORY: N2 8.1 - Cyst of kidney, acquired MR abdomen with and without gadolinium Comparison: CT/ME/SR - CT ABDOMEN PELVIS WO IV CON [...] 02/17/25 1311 DD/ 1309 TD/TT: 02/17/25 1309 Corporate Traffic Manager: XR lumbar spine 4V min Reviewed date:02/23/2025 12:34:44 PM Interpretation: Performing Lab: Notes/Report: [facility] [address] [place] [address] XRay Report Signed Patient: Mahin Ambrocio MR#: [id number] 045 : 1955 Acct:[id number] Age/Sex: 69 / M ADM Date: 02/20/25 Loc: HO.HOSX Attending Dr: Simon Solano MD, PhD Ordering Physician: Simon Solano MD, PhD Date of Service: 02/20/25 Procedure(s): XR lumbar spine 4V min Accession Number(s): [id number] cc: Blue Acosta MD; Simon Solano MD, PhD CLINICAL HISTORY: M43.16 - Spondylolisthesis, lumbar region 4 views lumbar spine Comparison: CT/ME/SR - CT ABDOMEN PELVIS WO IV CON [...] in OV> 02/23/25822 DD/ 1 TD/TT: 02/23/25821 Corporate Traffic Manager: [facility] [address] [place] [address] XRay Report Signed Patient: Ziyad Ambrocio MR#: [id number] 045 : 1955 Acct:[id number] Age/Sex: 69 / M ADM Date: 02/20/25 Loc: HONIDIA Attending Dr: Richard Solano MD, PhD Ordering Physician: Simon Solano MD, PhD Date of Service: 02/20/25 Procedure(s): XR lum bar spine 4V min Accession Number(s): [id number] cc: Blue Acosta MD; Simon Solano MD, PhD CLINICAL HISTORY: M4 3.16 - Spondylolisthesis, lumbar region 4 views lumbar spine Comparison: CT/ME/SR - CT ABDOMEN PELVIS WO IV CON [...] in OV> 02/23/25822 DD/ 1 TD/TT: 02/23/25821 Corporate Traffic Manager: US bladder Reviewed date:05/28/2025 12:37:23 PM Interpretation: Performing Lab: Notes/Report: [facility] [address] [place] [address] Ultrasound Report Signed Patient: Mahin Ambrocio MR#: [id number] 045 : 1955 Acct:[id number] Age/Sex: 69 / M ADM Date: 05/28/25 Loc: HO.HMGCX Attending Dr: Don Aj MD Ordering Physician: Don Aj MD Date of Service: 05/28/25 Procedure(s): US bladder Accession Number(s): [id number] cc: Don Aj MD; Blue Acosta MD CLINICAL HISTORY: N32.0 - Bladder-neck obstruction US bladder with color Doppler Comparison: US/ME - US SCROTUM DOPPLER - 01/06/25 17:[address]/ME/SR - CT ABDOMEN PELVIS WO IV CON [...] in OV> 05/28/25946 DD/ 5 TD/TT: 05/28/25945 Corporate Traffic Manager: [facility] [address] [place] [address] Ultrasound Report Signed Patient: Ziyad Ambrocio MR#: [id number] 045 : 1955 Acct:[id number] Age/Sex: 69 / M ADM Date: 05/28/25 Loc: HO.HMGCX Attending Dr: Joselin Bach MD Ordering Physician: Don Aj MD Date of Service: 05/28/25 Procedure(s): US bladder Accession Number(s): [id number] cc: Don Aj MD; Bule Acosta MD CLINICAL HISTORY: N3 2.0 - Bladder-neck obstruction US bladder with colo r Doppler Comparison: US/ME - US SCROTUM DOPPLER - 01/06/25 17:[address]/ME/SR - CT ABDOME N PELVIS WO IV [...] in OV> 05/28/25946 DD/ 5 TD/TT: 05/28/25945 Corporate Traffic Manager: Reason For Referral No Information Medications Medication [...] Administered pt was given the vaccine at [facility] on [facility]. Fluarix Quadrivalent IM Intramuscular 06/24/2018 Administe red [...] Problem Status W/U Status Risk Notes Problem 915763785 Diverticulitis (K57.92) Active confirmed Problem 210187288 Mixed hyperlipidemia (E78.2) Active confirmed Problem 869982020 Paroxysmal atria l fibrillation (I48.0) Active confirmed Problem 30073269 Atherosclerosis of aorta (I70.0) Active confirmed Problem 28904169760599015 Acute recurren t frontal sinusitis (J01.11) Active confirmed Problem 808046260 Angina effort (I20.8) Active confirmed Problem 281728876 Lumbar disc disease (M51.9) Active confirmed Problem 277975720 Tubular adenoma of colon (D12.6) Active confirmed Problem 25091591 Essential hypertension (I10) Active confirmed Problem 2690376 Prediabetes (R73.09) Active confirmed Problem 849319521 Morbid obesity d ue to excess calories (E66.01) Active confirmed Problem 346613509 Cervical disc disease (M50.90) Active confirmed Problem 437974080 Hammertoe of lef t foot (M20.42) Active [...] Date Provider Diagnosis Blue Acosta MD [address] [place], [place] [phone] 07/03/2024 Blue Acosta Mixed hyperlipidemia E78.2 ; Encounter for immunization Z23 ; Essential hypertension I10 and Prediabetes R73.09 Blue Acosta MD [address] [place] [id number] 01/02/2025 Blue Acosta Mixed hyperlipidemia E78.2 and Prediabetes R73.09 Blue Acosta MD [address] [place] [id number] 07/10/2024 Blue Acosta Essential hypertensi on I10 ; Prediabetes R73.09 ; Morbid obesity due to excess calories E66.01 ; Guaiac positive stools R19.5 ; Mixed hyperlipidemia E78.2 ; Colon cancer screening Z12.11 ; Depression screening Z13.31 and Paroxysmal atrial fibrillation I48.0 Blue Acosta MD [address] [place] [id number] 01/09/2025 Blue Acosta Pleural effusion J90 ; Lumbar disc disease with radiculopathy M51.16 ; Foot drop, left M21.372 ; Prediabetes R73.09 and Mixed hyperlipidemia E78.2 Blue Acosta MD [address] [place] [id number] 01/08/2025 Blue Ac[address] [place] [id number] 01/12/2025 Blue Acosta MD [address] [place] [id number] 01/13/2025 Blue Acosta Pleural effusion J90 Assessments [...] testing, THE ORDER HAS BEEN FAXED TO [facility] FOR SCHEDULING 01/13/2025 Pleural effusion (ICD-10 - [...] Details Provider Name:Blue garrido, 07/10/2025 07:00:00 AM, [address] [place] [address], [address], [place], [place], [phone], Provider Name:Blue garrido, 07/16/2025 08:00:00 AM, [address] [place] [address] Drive, [address], [place], [place], [phone], Insurance Providers Payer Name Payer Address Payer Phone Subscriber Number Group Number Insured Name Patient Relationship to Insured Coverage Start Date Coverage End Date [employer] [address] [place] [address] [id number] Mahin Ambrocio Self - patient is the insured [facility] [address] [place] [phone] [id number] Mahin Ambrocio Self - patient is the insured Medical (General) History Medical History History ICD Code colonoscopy 04/2012 for recta l bleeding due in 10 years; Colonoscopy done 10/27/[address] Sanchez - repeat 5 years. 03/30/25 colonoscopy - Daniel repeat 5y
== END 2025-06-17 12:07 | disposition home or self-care (01) ==
LOC: HO.HMGAL 10:57
PROVIDERS: PCP Internal Medicine; Visit Provider Registered Nurse Emergency
DX: J30.89 Other allergic rhinitis (principal)
CPT/HCPCS: 95117; 95165

== ENCOUNTER 2025-06-17 11:16 | Outpatient (AMB) | payer MEDICARE, OTHER, SELFPAY ==
--- NOTE | 2025-06-17 11:39 | A.OFFVIS_ITS ---
Intake Visit Reasons: 3m/US/PVR Intake Note: Patient is present for 3 mo follow up Urology Medication:Alfuzosin Antibiotic Allergy:NONE Blood Thinner:RIVAROXABAN Ultrasound done :05/28/25 Supervisory Lifeguard Required: No Accompanied by: Self / Same As Patient Allergies zolpidem (Ambien) Allergy (Severe, Verified 06/17/25 11:40) Unknown environmental allergies Adverse Reaction (Intermediate, Verified 06/17/25 11:40) Sinus Inflammation HPI Comments Details: Mahin is a pleasant male. He is a patient of Dr Li. He is seen for the following urologic issues - lower urinary tract symptoms Three-month follow-up after trial of medications Bladder ultrasound - PVR 130 cc, prostate 40 g Has had some improvement in nocturia with mild improvement in stream Discussed using stronger medication At this stage he would like to hold off Follow-up in six-month with uroflow, encourage double voiding Lower urinary tract symptoms Progressive weakness of stream Initial symptoms primarily - Nocturia x3, progressive weakness of stream Prior medications include - alfuzosin PFSH Medical History (Updated 06/17/25 @ 12:23 by Don Aj MD) Renal cyst Bleeding hemorrhoids HTN (hypertension) PAF (paroxysmal atrial fibrillation) Surgical History (Updated 03/26/25 @ 14:10 by Cristina Mosqueda RN) Hx of endoscopic retrograde cholangiopancreatography H/O colonoscopy Hx of foot surgery History of tonsillectomy and adenoidectomy History of deviated nasal septum Hx of cholecystectomy History of mandibular surgery Family History Father CVD (cardiovascular disease) Mother No problems noted. Social History Alcohol intake: never Patient Tobacco Use Status: Never used Tobacco Current occupational status: retired Review of Systems Const Denies chills and Denies fever(s) Card Reports no additional complaints and Denies syncope Resp Denies cough GI Denies abdominal pain and Denies heartburn Reports as per HPI and Denies change in libido Neuro Denies syncope Psych Denies change in libido Endo Denies change in libido Physical Exam Const General: cooperative, healthy appearing, comfortable and no acute distress Orientation/consciousness: patient oriented x3 HEENT Face and sinus: Yes normal facial exam Mouth: moist mucous membranes Neck Neck: Yes normal visual inspection, Yes full ROM and Yes trachea midline Chest Chest palpation & inspection: normal inspection of the chest Resp Effort & Inspection: normal respiratory effort, able to speak in complete sentences and no respiratory distress GI Inspection: Yes normal to inspection Back/Spine/Pelvis Cervical Spine: normal cervical lordosis Thoracic/Lumbar Spine: thoracic and lumbar spine normal to inspection Skin General skin exam: no rashes or lesions noted Neuro General: patient oriented x3, gait normal, tone normal and moves all extremities Extrem General: Yes normal to inspection and Yes capillary refill normal Assessment & Plan Assessment & Plan (1) Bladder outlet obstruction: Code(s): N32.0 - Bladder-neck obstruction Category: Medical (2) Urinary retention with incomplete bladder emptying: Code(s): R33.9 - Retention of urine, unspecified Category: Medical Plan Six-month follow-up uroflow Medications: Changed From alfuzosin ER 10 mg PO DAILY 30 days 30 tabs 2RF N32.0 - Bladder-neck obstr uction To alfuzosin ER 10 mg PO DAILY 90 tabs 1RF 90 days N32.0 - Bladder-neck obstruction Patient Instructions: This note is constructed using voice recognition software. While every effort has been made to ensure accuracy machine operator picker errors may have been included. Imaging studies, laboratory and physical exam results were discussed and reviewed in detail. No major barriers to patient understanding were identified. An opportunity to ask questions regarding the treatment plan was provided. All questions were answered. The patient expressed understanding and agreement with the above treatment plan. The patient is aware they should contact our office by phone for worsening of their current condition or the appearance of new urologic symptoms. Compliance is encouraged with any medications and followup testing that is ordered. It is a privilege to participate in the urologic care of your patient. If you have any questions or concerns regarding treatment for the above conditions, or other urologic issues, please do not hesitate to contact me. The office telephone contact is [phone]. Sincerely, Dr Don Aj MD, [facility] - Urology Compassionate Specialist Care for the Genitourinary System Coding Level of Care Code Est Pt Level 3 (98732) Complex EM visit Add On G2211 Diagnoses Bladder outlet obstruction N32.0 Urinary retention with incomplete bladder emptying R33.9
== END 2025-06-17 12:03 | disposition home or self-care (01) ==
LOC: HO.HUSH 11:17
PROVIDERS: PCP Internal Medicine; Visit Provider Urology
DX: N32.0 Bladder-neck obstruction (principal); R33.9 Retention of urine, unspecified
CPT/HCPCS: 99213; G2211

== ENCOUNTER → 2025-06-17 11:16 | Outpatient (BNVA) | payer MEDICARE, OTHER, SELFPAY | PROVIDERS: PCP Internal Medicine; Visit Provider Urology | DX: N32.0 Bladder-neck obstruction (principal); R33.9 Retention of urine, unspecified | CPT/HCPCS: 99212 ==

== ENCOUNTER 2025-06-22 11:19 | Outpatient (AMB) | payer MEDICARE, OTHER, SELFPAY ==
--- OUTSIDE RECORDS SUMMARY | 2024-04-23 06:00 | XMS_ITS ---
Author Organization [facility] Address [address] [facility] [place] [address] Care Team Providers Care Dog Barber Name Role Phone Karla PAZ, Blue Primary Care Provider UnaMilli Barrett Unavailable [phone] Encounters Encounter Location Date Provider Diagnosis Surgery [facility] ([facility]) [address] [place] [phone] 04/23/2024 Milli Yost Plan Of Treatment No Information Progress Notes * Mahin JORGE GDOB:[birth year] (69 yo M)Acc No.[id number]:04/23/2024 Patient: Mahin LAWRENCE Provider: Harjit Yost DPM [...] 0 04/23/2024 Generated for Printi ng/Faxing/eTransmitting on: 0 06/22/2025 02:00 PM EDT
--- OUTSIDE RECORDS SUMMARY | 2025-01-02 04:00 | XMS_ITS ---
Author Organization Blue Acosta MD Address [address] [place], [place] [phone] Care Team Providers Care Sugar Reprocess Operator Head Name Role Phone Blue Acosta Primary Care Provider Results Component Value Reference Range Notes Liver Panel Reviewed date:01/02/2025 12:30:46 PM Interpretation: Performing Lab:[address] [address] Notes/Report: Bilirubin Total 0.6 0.0-1.0 mg/dL Bilirubin Direct 0.3 0.0-0.5 mg/dL Aspartate Amino Transferase 29 5-37 U/L Alanine Aminotransferase 22 0-40 U/L Total Protein 7.6 6.5-8.0 g/dL Albumin Level 3.9 3.5-5.0 g/dL Alkaline Phosphatase 80 39-117 U/L Glucose Fasting Reviewed date:01/02/2025 12:30:54 PM Interpretation: Performing Lab:[address] [address] Notes/Report: Glucose Fasting 118 60-99 mg/dL A fasting glucose from 100-125 mg/dl is considered impaired (pre-diabetes). Lipid Panel with Reflex Reviewed date:01/02/2025 12:31:05 PM Interpretation: Performing Lab:[address] [address] Notes/Report: Triglycerides 118 <150 mg/dL Desirable Triglyceride: [...] A1c Reviewed date:01/03/2025 06:16:13 PM Interpretation: Performing Lab:[facility], [address] [place] [place] [phone] Notes/Report: Hemoglobin A1c % 5.6 <6.0 % [...] average glucose, using the formula of the K9J-Dhcuylf Average Glucose study (ADAG), Diabetes Care, Vol.31,#8, May. 2007 REASON FOR VISIT FASTING LIPIDS Encounters Encounter Location Date Provider Diagnosis Blue Acosta MD [address] [place] [address] [place] [phone] 01/02/2025 Blue Acosta Mixed hyperlipidemia E78.2 and Prediabetes R73.09 Assessments Encounter Date Diagnosis (ICD Code) Assessment Notes Treatment Notes Treatment Clinical Notes Section Notes 01/02/2025 Mixed hyperlipidemia (ICD-10 - E78.2) 01/02/2025 Prediabetes (ICD-10 - R73.09) Plan Of Treatment Next Appt Details Provider Name:Blue garrido, 07/10/2025 07:00:00 AM, [address] [place] [address], Suite [facility], [place], [place], [phone], Provider Name:Blue garrido, 07/16/2025 08:00:00 AM, [address] [place] [address], [address], [place], [place], [phone], Progress Notes * Mahin AMBROCIO GDOB:[birth year] (69 yo M)Acc No.[id number]:01/02/2025 Progress Note Patient: Mahin LAWRENCE Provider: Madan Acosta MD :1955 A ge:69 Y S ex:Male Date:01/02/2025 Address:[address] [place], [place] [phone] Subjective: * Chief Complaints: * 1 . [...] 01/02/2025 Generated for Navjot mccall/Janay/Tanoitting on: 0 06/22/2025 02:00 PM EDT
--- OUTSIDE RECORDS SUMMARY | 2025-01-08 16:26 | XMS_ITS ---
Author Organization Blue Acosta MD Address 10 [facility] [address] [place] [address] [phone] Care Team Providers Care Vice President Network Development Name Role Phone Blue Acosta Primary Care Provider [phone] REASON FOR VISIT ER Encounters Encounter Location Date Provider Diagnosis Blue Acosta MD [address] [place] [address] [place] [address] [phone] 01/08/2025 Blue Acosta Plan Of Treatment Next Appt Details Provider Name:Blue Arechiga ier, 07/10/2025 07:00:00 AM, [address] [place] [address], Suite [facility], [place], [place], [phone], Provider Name:Blue Arechiga ier, 07/16/2025 08:00:00 AM, [address] [place] [address], Suite [facility], [place], [place], [phone], Progress Notes * Mahin AMBROCIO GDOB:[birth year] (69 yo M)Acc No.[id number]:01/08/2025 Patient: Mahin LAWRENCE :1955 A ge:69 Y S ex:Male Address:[address] [place] [phone] * true * Date: Generated for Printi ng/Faxing/eTransmitting on: 0 06/22/2025 02:01 PM EDT
--- OUTSIDE RECORDS SUMMARY | 2025-01-09 05:15 | XMS_ITS ---
Author Organization Blue Acosta MD Address [address] [place], [place] [phone] Care Team Providers Care Dip Painter Name Role Phone Blue Acosta Primary Care [...] kg/m2 01/09/2025 weight is down 6 pounds [facility] e 07-10-24 Encounters Encounter Location Date Provider Diagnosis Blue Acosta MD [address] [place] [address] [address] [place], [place] [phone] 01/09/2025 Blue Acosta Pleural effusion J90 ; [...] testing, THE ORDER HAS BEEN FAXED TO [facility] FOR SCHEDULING 01/09/2025 Foot drop, left (ICD-10 [...] testing, THE ORDER HAS BEEN FAXED TO [facility] FOR SCHEDULING Foot drop, left pending diagnostic t esting Prediabetes stable, no need for medication at this time, will contiue to monitor Mixed hyperlipidemia stable, will contin ue current regiment Pending Test Test Name Order Date MRI LUMBAR SPINE NO CONTRAST 01/09/2025 XR CHEST 2 VIEW PA & LAT 01/09/2025 Next Appt Details Provider Name:Blue Arechiga ier, 07/10/2025 07:00:00 AM, [address] [place] [address], [address], [place], [place], [phone], Provider Name:Blue Arechiga ier, 07/16/2025 08:00:00 AM, [address] [facility], [address], [place], [place], [phone], Progress Notes * AMBROCIOKyrie CHEUNG GDOB:[birth year] (69 yo M)Acc No.[id number]:01/09/2025 Progress Notes Patient: Kyrie LAWRENCE Provider: Madan Acosta MD :1955 A ge:69 Y S ex:Male Date:01/09/2025 Address:[address] [place], [place] [phone] Subjective: * Chief Complaints: * 6 MO [...] testing, THE ORDER HAS BEEN FAXED TO [facility] FOR SCHEDULING 3. F oot drop, left [...] 01/09/2025 Generated for Navjot mccall/Janay/eTransmitting on: 0 06/22/2025 02:00 PM EDT History and Physical Notes * [...]
--- OUTSIDE RECORDS SUMMARY | 2025-01-12 04:57 | XMS_ITS ---
Author Organization Blue Acosta MD Address 10 [facility] [address] [place] [address] [phone] Care Team Providers Care Net Programmer Name Role Phone Blue Acosta Primary Care Provider REASON FOR VISIT MRI order Encounters Encounter Location Date Provider Diagnosis Blue Acosta MD [address] [place] [address] [place] [address] [phone] 01/12/2025 Blue Acosta Plan Of Treatment Next Appt Details Provider Name:Blue Arechiga ier, 07/10/2025 07:00:00 AM, [address] [place] [address], [address] [place] [address], [phone], Provider Name:Blue Arechiga ier, 07/16/2025 08:00:00 AM, [address] [place] [address], [address] [place] [address], [phone], Progress Notes * Mahin AMBROCIO GDOB:[birth year] (69 yo M)Acc No.[id number]:01/12/2025 Patient: Mahin LAWRENCE :1955 A ge:69 Y S ex:Male Address:[address] [place] [id number] * true * Date: Generated for Printi ng/Faxing/eTransmitting on: 0 06/22/2025 02:03 PM EDT
--- OUTSIDE RECORDS SUMMARY | 2025-01-13 10:52 | XMS_ITS ---
Author Organization Bule Acosta MD Address [address] [place] [address] [place] [phone] Care Team Providers Care Knitting Machine Operator Helper Name Role Phone Blue Acosta Primary Care Provider REASON FOR VISIT Repeat CXR Encounters Encounter Location Date Provider Diagnosis Blue Acosta MD [address] [place] [phone] 01/13/2025 Blue Acosta Pleural effusion J90 Assessments [...] 01/13/2025 Next Appt Details Provider Name:Blue garrido, 07/10/2025 07:00:00 AM, [address] [place] [address], [address], [phone], Provider Name:Blue garrido, 07/16/2025 08:00:00 AM, [address] [place] [address], [address], [phone], Progress Notes * Mahin AMBROCIO GDOB:[birth year] (69 yo M)Acc No.[id number]:01/13/2025 Patient: Mahin LAWRENCE :1955 A ge:69 Y S ex:Male Address:[address] [place] [address] Subjective: * Chief Complaints: * R epeat CXR * Medical History: * Surgical History: * Hospitalization/Major Diagno stic Procedure: * Medications: Objective: * Vitals: * Physical Examination: Assessment: * Assessment: 1. P leural effusion - J90 Plan: * Treatment: * Procedure Codes: * true * Date: Generated for Navjot mccall/Janay/Dietersmitting on: 0 06/22/2025 02:01 PM EDT
--- OUTSIDE RECORDS SUMMARY | 2025-03-20 05:30 | XMS_ITS ---
Author Organization [facility] Address [address] [place] [address] Care Team Providers Care Network Operations Center Engineer Name Role Phone Blue Acosta MD Primary Care Provider Corby Michel [phone] REASON FOR VISIT screening Encounters Encounter Location Date Provider Diagnosis [facility] Outpatient [address] [place] [phone] 03/20/2025 Corby Sanchez Plan Of Treatment No Information Progress Notes * JORGEKYRIE CHEUNG GDOB:[birth year] (69 yo M)Acc No.[id number]:03/20/2025 COLON WITH MAC Patient: KYRIE LAWRENCE Provider: Del Sanchez MD :1955 A ge:69 Y S ex:Male Date:03/20/2025 Address:[address] [place], [place] [phone] Pcp:Blue Acosta MD Subjective: * Chief Complaints: [...] 0 03/20/2025 Generated for Printi ng/Faxing/eTransmitting on: 0 06/22/2025 02:00 PM EDT
--- OUTSIDE RECORDS SUMMARY | 2025-03-30 09:10 | XMS_ITS ---
Author Organization [facility] Address [address] [place] [address] Care Team Providers Care Operations Examiner Name Role Phone Blue Acosta MD Primary Care Provider Corby Michel [phone] Encounters Encounter Location Date Provider Diagnosis [facility] [place] [address] [place] [id number] 03/30/2025 Corby Sanchez Colon cancer scree ascencion [...] KYRIE JORGE GDOB:[birth year] (69 yo M)Acc No.[id number]:03/30/2025 COLON WITH MAC Patient: Yanick COLEMANPEYMAN KYRIE G Provider: Del Sanchez MD :1955 A ge:69 Y S ex:Male Date:03/30/2025 Address:[address] [place], [place] [phone] Pcp:Blue Acosta MD Subjective: * Chief Complaints: [...] 03/30/2025 Generated for Navjot mccall/Janay/Tanoitting on: 0 06/22/2025 02:02 PM EDT
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
--- OUTSIDE RECORDS SUMMARY | 2025-06-22 14:02 | XMS_ITS | Patient Health Record ---
Author Organization Blue Acosta MD Address [address] [place], [place] [address] Care Team Providers Care Net Developer Contract Name Role Phone Blue Acosta Primary Care Provider Allergies Allergen (clinical drug ingredient) Drug/Non Drug Allergy documented on EMR Reaction Allergy Type Onset Date Status zolpidem ambien (uncoded) hallucinations Allergy Active amoxil (uncoded) rash Allergy Act dick Results Component Value Reference Range Notes Complete Blood Count Auto Di ff Reviewed date:07/03/2024 05:03:13 PM Interpretation: Performing Lab:[facility], [address] [place] [phone] Notes/Report: White Blood Count 8.5 4.8-10.8 X10*3/uL [...] NRBC Abs Auto 0.000 0.0-0.012 X10*3/uL Comprehensive [place]. Panel Fa Reviewed date:07/03/2024 12:20:41 PM Interpretation: Performing Lab:[facility], [address] [place] [phone] Notes/Report: Sodium 140 135-145 mmol/L Potassium 4.2 3.3-5.1 mmol/L Chloride 105 96-108 mmol/L Carbon Dioxide 28 22-29 mmol/L Anion Gap 11 12-20 Blood Urea Nitrogen 16 9-16 mg/dL Creatinine 0.91 0.5-1.4 mg/dL Estimated Glomerular Filt Rate > 60 NOTE: For -[place] individuals, multiply the result by 1.210. Chronic [...] Panel Reviewed date:07/03/2024 12:16:21 PM Interpretation: Performing Lab:[facility], [address] [place] [phone] Notes/Report: Triglycerides 103 <150 mg/dL Desirable Triglyceride: [...] (Free>4and<10) Reviewed date:07/03/2024 12:17:59 PM Interpretation: Performing Lab:[facility], [address] [place] [phone] Notes/Report: PSA,Total (Free>4and<10) 0.31 0.00-4.00 ng/mL A [...] Random Reviewed date:07/03/2024 12:30:42 PM Interpretation: Performing Lab:[facility], [address] [place] [phone] Notes/Report: Creatinine Urine 52.54 Microalbumin Urine < 5.0 Microalbum/Creatinine Ratio Ur TNP <30 ug/mg cr Unable to calculate albumin/creatinine ratio due to low microalbumin or creatinine result. Hemoglobin A1c Reviewed date:07/03/2024 12:16:31 PM Interpretation: Performing Lab:[address] [phone] Notes/Report: Hemoglobin A1c % 5.6 <6.0 % [...] average glucose, using the formula of the N7I-Tpfuupg Average Glucose study (ADAG), Diabetes Care, Vol.31,#8, 2007 UA ClnCatch+Micro w/rflx Cul t Reviewed date:07/03/2024 12:27:43 PM Interpretation: Performing Lab:[address] [phone] Notes/Report: Urine, Clean Catch Color Urine Yellow Appearance Urine Clear PH 5.5 5.0-9.0 Glucose Urine UA Negative Negative mg/dL Urine Blood Negative Negative Specific [place] - Urine 1.010 1.005-1.025 Urine Protein Negative Neg-Trace mg/dL Urine Ketones Negative Negative mg/dL Nitrite Urine Negative Negative Leukocyte Esterase Urine Negative Negative RBC Urine 0-2 0-2 /HPF WBC Urine 0-5 0-5 /HPF Squamous Epithelial Cell Urine 0-2 0-2 /HPF Bacteria Urine None Seen None Seen Hyaline Casts Urine 0-2 0-2 /LPF Liver Panel Reviewed date:01/02/2025 12:30:46 PM Interpretation: Performing Lab:[facility], [address] [place] [phone] Notes/Report: Bilirubin Total 0.6 0.0-1.0 mg/dL Bilirubin Direct 0.3 0.0-0.5 mg/dL Aspartate Amino Transferase 29 5-37 U/L Alanine Aminotransferase 22 0-40 U/L Total Protein 7.6 6.5-8.0 g/dL Albumin Level 3.9 3.5-5.0 g/dL Alkaline Phosphatase 80 39-117 U/L Glucose Fasting Reviewed date:01/02/2025 12:30:54 PM Interpretation: Performing Lab:[facility], [address] [place] [phone] Notes/Report: Glucose Fasting 118 60-99 mg/dL A fasting glucose from 100-125 mg/dl is considered impaired (pre-diabetes). Lipid Panel with Reflex Reviewed date:01/02/2025 12:31:05 PM Interpretation: Performing Lab:[facility], [address] [place] [phone] Notes/Report: Triglycerides 118 <150 mg/dL Desirable Triglyceride: [...] A1c Reviewed date:01/03/2025 06:16:13 PM Interpretation: Performing Lab:[facility], [address] [place] [phone] Notes/Report: Hemoglobin A1c % 5.6 <6.0 % [...] average glucose, using the formula of the C5S-Tqnamxl Average Glucose study (ADAG), Diabetes Care, Vol.31,#8, May. 2007 Johnie Milner Reviewed date:01/02/2025 12:23:00 PM Interpretation: Performing Lab:[facility], [address] [place] [phone] Notes/Report: Hold Gold See Note Specimen held untested for 24 hours; Call to request Chemistry testing. Complete Blood Count Auto Di ff Reviewed date:01/06/2025 08:02:47 PM Interpretation: Performing Lab:[facility], [address] [place] [phone] Notes/Report: White Blood Count 12.8 4.8-10.8 X10*3/uL [...] Panel Reviewed date:01/06/2025 08:04:15 PM Interpretation: Performing Lab:[facility], [address] [place] [phone] Notes/Report: Sodium 140 135-145 mmol/L Potassium 4.1 [...] Magnesium Reviewed date:01/06/2025 07:58:26 PM Interpretation: Performing Lab:[address] [phone] Notes/Report: Magnesium 1.8 1.6-2.6 mg/dL Lipase Reviewed date:01/06/2025 07:58:34 PM Interpretation: Performing Lab:[address] [address] Notes/Report: Lipase 23 8-78 U/L CT NG by PCR Reviewed date:01/07/2025 02:59:49 PM Interpretation: Performing Lab:[address] [address] Notes/Report: Urine CT PCR NOT DETECTED Not [...] Cult Reviewed date:01/08/2025 04:41:34 PM Interpretation: Performing Lab:[facility], [address] [place] [phone] Notes/Report: Urine, Clean Catch Color Urine Yellow Appearance Urine Clear PH 5.5 5.0-9.0 Glucose Urine UA Negative Negative mg/dL Urine Blood Negative Negative Specific [place] - Urine 1.015 1.005-1.025 Urine Protein Negative Neg-Trace mg/dL Urine Ketones Negative Negative mg/dL Nitrite Urine Negative Negative Leukocyte Esterase Urine Negative Negative CT abdomen pelvis wo con Reviewed date:01/06/2025 08:03:52 PM Interpretation: Performing Lab: Notes/Report: [address] [address] [address] Scan Report Signed Patient: Mahin Ambrocio MR#: [id number] 045 : 1955 Acct:[id number] Age/Sex: 69 / M ADM Date: 01/06/25 Loc: .ED Attending Dr: Ordering Physician: Cristina Birmingham Date of Service: 01/06/25 Procedure(s): CT abdomen pelvis wo IV con Accession Number(s): [id number] cc: Blue Acosta MD; Cristina Birmingham Report Number: [id number]: Total DLP = 1401.00 mGy-cm EXAMINATION: CT [...] 01/06/25 1414 DD/ 1310 TD/TT: 01/06/25 1402 Music Industry Intern: [place] [address] [place] Scan Report Signed Patient: Ziyad Ambrocio G MR#: [id number] 045 : 1955 Acct:[id number] Age/Sex: 69 / M ADM Date: 01/06/25 Loc: HO.ED Attending Dr: Ordering Physician: Cristina Birmingham Date of Service: 01/06/25 Procedure(s): CT abd omen pelvis wo IV con Accession Number(s): [id number] cc: Blue Acosta MD; Cristina Birmingham Report Number: [id number]: Total DLP = 1401.00 mGy-cm EXAMINATION: CT [...] 01/06/25 1414 DD/ 1310 TD/TT: 01/06/25 1402 Music Industry Intern: scrotum Reviewed date:01/07/2025 03:00:25 PM Interpretation: Performing Lab: Notes/Report: [address] [address] Ultrasound Report Signed Patient: Mahin Ambrocio MR#: [id number] 045 : 1955 Acct:[id number] Age/Sex: 69 / M ADM Date: 01/06/25 Loc: HO.ED Attending Dr: Ordering Physician: Omid Lopez MD Date of Service: 01/06/25 Procedure(s): US scrotum Accession Number(s): [id number] cc: Blue Acosta MD; Omid Lopez MD CLINICAL HISTORY: L testicular pain. Ultrasound scrotum. COMPARISON: None Technique: Real time sonographic imaging, including color-flow imaging, was performed by the medical pathologist. Multiple employer relations representative static images were saved for review. [...] OV> 01/07/25 0804 DD/ 15 TD/TT: 01/06/251815 Music Industry Intern: [place] [address] Ultrasound Report Signed Patient: Ziyad Ambrocio MR#: [id number] 045 : 1955 Acct:[id number] Age/Sex: 69 / M ADM Date: 01/06/25 Loc: HO.ED Attending Dr: Ordering Physician: Omid Lopez MD Date of Service: 01/06/25 Procedure(s): US scrotum Accession Number(s): [id number] cc: Bleu Acosta MD; Omid Lopez MD CLINICAL HISTORY: L testicular pain. Ultrasound scrotum. COMPARISON: None Technique: Real time sonographic imaging, including color-flow imaging, was performed by the medical pathologist. Multiple employer relations representative static images were saved for review. [...] 01/07/25 0804 DD/ 181 TD/TT: 01/06/25 181 Music Industry Intern: US scrotum doppler Reviewed date:01/06/2025 08:04:52 PM Interpretation: Performing Lab: Notes/Report: [address] [address] Ultrasound Report Signed Patient: Mahin Ambrocio MR#: [id number] 045 : 1955 Acct:[id number] Age/Sex: 69 / M ADM Date: 01/06/25 Loc: .ED Attending Dr: Ordering Physician: Louise Callejas Date of Service: 01/06/25 Procedure(s): US scrotum doppler Accession Number(s): [id number] cc: Blue Acosta MD; Louise Callejas CLINICAL HISTORY: L testicular pain. Ultrasound scrotum. COMPARISON: None Technique: Real time sonographic imaging, including color-flow imaging, was performed by the medical pathologist. Multiple employer relations representative static images were saved for review. [...] in OV> 01/06/251815 DD/ 15 TD/TT: 01/06/251815 Music Industry Intern: [place] [address] Ultrasound Report Signed Patient: Ziyad Ambrocio MR#: [id number] 045 : 1955 Acct:[id number] Age/Sex: 69 / M ADM Date: 01/06/25 Loc: HO.ED Attending Dr: Ordering Physician: Louise Callejas Date of Service: 01/06/25 Procedure(s): US scr otum doppler Accession Number(s): [id number] cc: Blue Acosta MD; Louise Callejas CLINICAL HISTORY: L testicular pain. Ultrasound scrotum. COMPARISON: None Technique: Real time sonographic imaging, including color-flow imaging, was performed by the medical pathologist. Multiple employer relations representative static images were saved for review. [...] in OV> 01/06/251815 DD/ 15 TD/TT: 01/06/251815 Music Industry Intern: XR chest 2V Reviewed date:01/13/2025 02:56:25 PM Interpretation: Performing Lab: Notes/Report: [place] [address] XRay Report Signed Patient: Mahin Ambrocio MR#: [id number] 045 : 1955 Acct:[id number] Age/Sex: 69 / M ADM Date: 01/09/25 Loc: SHAY Attending Dr: Blue Acosta MD Ordering Physician: Blue Acosta MD Date of Service: 01/09/25 Procedure(s): XR chest 2V Accession Number(s): [id number] cc: Blue Acosta MD EXAMINATION: XR CHEST [...] 01/09/25 1059 DD/ 1000 TD/TT: 01/09/25 1010 Music Industry Intern: [address] [address] XRay Report Signed Patient: Ziyad Ambrocio in G MR#: [id number] 045 : 1955 Acct:[id number] Age/Sex: 69 / M ADM Date: 01/09/25 Loc: HO.XRAY Attending Dr: Blue Acosta MD Ordering Physician: Blue Acosta MD Date of Service: 01/09/25 Procedure(s): XR isaias st 2V Accession Number(s): [id number] cc: Blue Acosta MD EXAMINATION: XR CHEST [...] 01/09/25 1059 DD/ 1000 TD/TT: 01/09/25 1010 Music Industry Intern: MR summers vidhisimran sahra Reviewed date:02/17/2025 04:48:05 PM Interpretation: Performing Lab: Notes/Report: [address] [address] Magnetic Resonance Report Signed Patient: Mahin Ambrocio MR#: [id number] 045 : 1955 Acct:[id number] Age/Sex: 69 / M ADM Date: 02/16/25 Loc: HO.MRI Attending Dr: Jamey Rojas MD Ordering Physician: Jamey Rojas MD Date of Service: 02/16/25 Procedure(s): MR abdomen wo/w con Accession Number(s): [id number] cc: Blue Acosta MD; Jamey Rojas MD CLINICAL HISTORY: N28.1 - Cyst of kidney, acquired MR abdomen with and without gadolinium Comparison: CT/PA/SR - CT ABDOMEN PELVIS WO IV CON [...] 02/17/25 1311 DD/ 1309 TD/TT: 02/17/25 1309 Music Industry Intern: [address] [address] Magnetic Resonance Report Signed Patient: Ziyad Ambrocio MR#: [id number] 045 : 1955 Acct:[id number] Age/Sex: 69 / M ADM Date: 02/16/25 Loc: HO.MRI Attending Dr: Jamey Rojas MD Ordering Physician: Jamey Rojas MD Date of Service: 02/16/25 Procedure(s): MR abd omen wo/w con Accession Number(s): [id number] cc: Blue Acosta MD; Jamey Rojas MD CLINICAL HISTORY: N2 8.1 - Cyst of kidney, acquired MR abdomen with and without gadolinium Comparison: CT/PA/SR - CT ABDOMEN PELVIS WO IV CON [...] 02/17/25 1311 DD/ 1309 TD/TT: 02/17/25 1309 Music Industry Intern: XR lumbar spine 4V min Reviewed date:02/23/2025 12:34:44 PM Interpretation: Performing Lab: Notes/Report: [facility] [address] [place] [address] XRay Report Signed Patient: Mahin Ambrocio MR#: [id number] 045 : 1955 Acct:[id number] Age/Sex: 69 / M ADM Date: 02/20/25 Loc: HO.HOSX Attending Dr: Simon Solano MD, PhD Ordering Physician: Simon Solano MD, PhD Date of Service: 02/20/25 Procedure(s): XR lumbar spine 4V min Accession Number(s): [id number] cc: Blue Acosta MD; Simon Solano MD, PhD CLINICAL HISTORY: M43.16 - Spondylolisthesis, lumbar region 4 views lumbar spine Comparison: CT/PA/SR - CT ABDOMEN PELVIS WO IV CON [...] in OV> 02/23/25822 DD/ 1 TD/TT: 02/23/25821 Music Industry Intern: [facility] [address] [place] [address] XRay Report Signed Patient: Ziyad Ambrocio MR#: [id number] 045 : 1955 Acct:[id number] Age/Sex: 69 / M ADM Date: 02/20/25 Loc: HONIDIA Attending Dr: Richard Solano MD, PhD Ordering Physician: Simon Solano MD, PhD Date of Service: 02/20/25 Procedure(s): XR lum bar spine 4V min Accession Number(s): [id number] cc: Blue Acosta MD; Simon Solano MD, PhD CLINICAL HISTORY: M4 3.16 - Spondylolisthesis, lumbar region 4 views lumbar spine Comparison: CT/PA/SR - CT ABDOMEN PELVIS WO IV CON [...] in OV> 02/23/25822 DD/ 1 TD/TT: 02/23/25821 Music Industry Intern: US bladder Reviewed date:05/28/2025 12:37:23 PM Interpretation: Performing Lab: Notes/Report: [facility] [address] [place] [address] Ultrasound Report Signed Patient: Mahin Ambrocio MR#: [id number] 045 : 1955 Acct:[id number] Age/Sex: 69 / M ADM Date: 05/28/25 Loc: HO.HMGCX Attending Dr: Don Aj MD Ordering Physician: Don Aj MD Date of Service: 05/28/25 Procedure(s): US bladder Accession Number(s): [id number] cc: Don Aj MD; Blue Acosta MD CLINICAL HISTORY: N32.0 - Bladder-neck obstruction US bladder with color Doppler Comparison: US/PA - US SCROTUM DOPPLER - 01/06/25 17:[address]/PA/SR - CT ABDOMEN PELVIS WO IV CON [...] in OV> 05/28/25946 DD/ 5 TD/TT: 05/28/25945 Music Industry Intern: [facility] [place] [facility] [address] [place] [address] Ultrasound Report Signed Patient: Ziyad Ambrocio MR#: [id number] 045 : 1955 Acct:[id number] Age/Sex: 69 / M ADM Date: 05/28/25 Loc: HO.HMGCX Attending Dr: Joselin Bach MD Ordering Physician: Don Aj MD Date of Service: 05/28/25 Procedure(s): US bladder Accession Number(s): [id number] cc: Don Aj MD; Blue Acosta MD CLINICAL HISTORY: N3 2.0 - Bladder-neck obstruction US bladder with colo r Doppler Comparison: US/PA - US SCROTUM DOPPLER - 01/06/25 17:[address]/PA/SR - CT ABDOME N PELVIS WO IV [...] in OV> 05/28/25946 DD/ 5 TD/TT: 05/28/25945 Music Industry Intern: Reason For Referral No Information Medications Medication [...] Administered pt was given the vaccine at [facility] on [facility]. Fluarix Quadrivalent IM Intramuscular 06/24/2018 [...] Problem Status W/U Status Risk Notes Problem 803648138 Diverticulitis (K57.92) Active confirmed Problem 356237305 Mixed hyperlipidemia (E78.2) Active confirmed Problem 889000551 Paroxysmal atria l fibrillation (I48.0) Active confirmed Problem 44335799 Atherosclerosis of aorta (I70.0) Active confirmed Problem 71464222477979985 Acute recurren t frontal sinusitis (J01.11) Active confirmed Problem 824571189 Angina effort (I20.8) Active confirmed Problem 737386391 Lumbar disc disease (M51.9) Active confirmed Problem 523375819 Tubular adenoma of colon (D12.6) Active confirmed Problem 55420422 Essential hypertension (I10) Active confirmed Problem 0954180 Prediabetes (R73.09) Active confirmed Problem 216513261 Morbid obesity d ue to excess calories (E66.01) Active confirmed Problem 138612686 Cervical disc disease (M50.90) Active confirmed Problem 932354058 Hammertoe of lef t foot (M20.42) Active [...] Date Provider Diagnosis Blue Acosta MD [address] [place], [place] [phone] 07/03/2024 Blue Acosta Mixed hyperlipidemia E78.2 ; Encounter for immunization Z23 ; Essential hypertension I10 and Prediabetes R73.09 Blue Acosta MD [address] [place] [id number] 01/02/2025 Blue Acosta Mixed hyperlipidemia E78.2 and Prediabetes R73.09 Blue Acosta MD [address] [place] [id number] 07/10/2024 Blue Acosta Essential hypertensi on I10 ; Prediabetes R73.09 ; Morbid obesity due to excess calories E66.01 ; Guaiac positive stools R19.5 ; Mixed hyperlipidemia E78.2 ; Colon cancer screening Z12.11 ; Depression screening Z13.31 and Paroxysmal atrial fibrillation I48.0 Blue Acosta MD [address] [place] [id number] 01/09/2025 Blue Acosta Pleural effusion J90 ; Lumbar disc disease with radiculopathy M51.16 ; Foot drop, left M21.372 ; Prediabetes R73.09 and Mixed hyperlipidemia E78.2 Blue Acosta MD [address] [place] [id number] 01/08/2025 Blue Ac[address] MD [address] [place] [id number] 01/12/2025 Blue Acosta MD [address] [place] [id number] 01/13/2025 Blue Acosta Pleural effusion J90 Assessments [...] testing, THE ORDER HAS BEEN FAXED TO [facility] FOR SCHEDULING 01/13/2025 Pleural effusion (ICD-10 - [...] Details Provider Name:Blue garrido, 07/10/2025 07:00:00 AM, [address] [place] [address], [address], [place], [place], [phone], Provider Name:Blue garrido, 07/16/2025 08:00:00 AM, [address] [place] [address] Drive, [address], [place], [place], [phone], Insurance Providers Payer Name Payer Address Payer Phone Subscriber Number Group Number Insured Name Patient Relationship to Insured Coverage Start Date Coverage End Date [employer] [address] [place] [address] [id number] Mahin Ambrocio Self - patient is the insured [facility] [address] [place] [phone] [id number] Mahin Ambrocio Self - patient is the insured Medical (General) History Medical History History ICD Code colonoscopy 04/2012 for recta l bleeding due in 10 years; Colonoscopy done 10/27/[address] Sanchez - repeat 5 years. 03/30/25 colonoscopy - Daniel repeat 5y
--- OUTSIDE RECORDS SUMMARY | 2025-06-22 14:02 | XMS_ITS | Patient Health Record ---
Author Organization [facility] hallie Dawn Address [address] [place] [address] Care Team Providers Care Chip Tuner Name Role Phone Blue Acosta MD Primary Care Provider Milli Jimenez Unavailable [phone] Allergies Allergen (clinical drug ingredient) Drug/Non Drug [...] W/U Status Risk Notes Problem Tinea unguium (319193922) Tinea unguium (B35.1) Active confirmed Problem Acquired hammer toe of left foot (6440233656942437 ) Other hammer toe(s) (acquired), left foot (M20.42) Active confirmed Problem Localized, primary osteoarthritis of the ankle and/or foot (038001709) Arthritis of joint of lesser toe, left [...] X ray : Foot, left 3V 05/06/2024 92716-NSHFVNE NAIL, 1-5 08/17/2023 01356-DNULALQ NAIL, 1-5 03/31/2016 04402- Debride <25 sq cm 09/02/2013 72814- Debride <25 sq cm 08/17/2023 80929-DJYMOMZ SKIN/TISSUE 07/07/2013 58878-FUILJSB SKIN/TISSUE 07/22/2013 04686-XPLJCBG SKIN/TISSUE 08/12/2013 Insurance Providers Payer Name Payer Address Payer Phone Subscriber Number Group Number Insured Name Patient Relationship to Insured Coverage Start Date Coverage End Date Medicare [employer] [address] [facility] [place] [address] [phone] [id number] Mahin Ha Self - patient is the insured [facility] [address] [place] [address] [id number] Mahin Ha Self - patient is [...]
== END 2025-06-22 11:20 | disposition home or self-care (01) ==
LOC: HO.HMGAL 11:19
PROVIDERS: PCP Internal Medicine; Visit Provider Registered Nurse Emergency
DX: J30.89 Other allergic rhinitis (principal)
CPT/HCPCS: 95117; 95165

== ENCOUNTER 2025-06-29 11:35 | Outpatient (AMB) | payer MEDICARE, OTHER, SELFPAY ==
--- OUTSIDE RECORDS SUMMARY | 2024-04-23 06:00 | XMS_ITS ---
Author Organization [facility] Address [address] [facility] [place] [address] Care Team Providers Care Preschool Education Director Name Role Phone Karla PAZ, Blue Primary Care Provider UnaMilli Barrett Unavailable [phone] Encounters Encounter Location Date Provider Diagnosis Surgery [facility] ([facility]) [address] [place] [phone] 04/23/2024 Milli Yost Plan Of Treatment No Information Progress Notes * Mahin JORGE GDOB:[birth year] (69 yo M)Acc No.[id number]:04/23/2024 Patient: Mahin LAWRENCE Provider: Harjit Yost DPM [...] 04/23/2024 Generated for Printi ng/Faxing/eTransmitting on: 0 06/29/2025 03:57 PM EDT
--- OUTSIDE RECORDS SUMMARY | 2025-01-02 04:00 | XMS_ITS ---
Author Organization Blue Acosta MD Address [address] [place], [place] [phone] Care Team Providers Care Manufacturing Intern Name Role Phone Blue Acosta Primary Care Provider Results Component Value Reference Range Notes Liver Panel Reviewed date:01/02/2025 12:30:46 PM Interpretation: Performing Lab:[address] [phone] Notes/Report: Bilirubin Total 0.6 0.0-1.0 mg/dL Bilirubin Direct 0.3 0.0-0.5 mg/dL Aspartate Amino Transferase 29 5-37 U/L Alanine Aminotransferase 22 0-40 U/L Total Protein 7.6 6.5-8.0 g/dL Albumin Level 3.9 3.5-5.0 g/dL Alkaline Phosphatase 80 39-117 U/L Glucose Fasting Reviewed date:01/02/2025 12:30:54 PM Interpretation: Performing Lab:[address] [address] Notes/Report: Glucose Fasting 118 60-99 mg/dL A fasting glucose from 100-125 mg/dl is considered impaired (pre-diabetes). Lipid Panel with Reflex Reviewed date:01/02/2025 12:31:05 PM Interpretation: Performing Lab:[address] [phone] Notes/Report: Triglycerides 118 <150 mg/dL Desirable Triglyceride: [...] A1c Reviewed date:01/03/2025 06:16:13 PM Interpretation: Performing Lab:[facility], [address] [place] [phone] Notes/Report: Hemoglobin A1c % 5.6 <6.0 % [...] average glucose, using the formula of the J9M-Wevhxoo Average Glucose study (ADAG), Diabetes Care, Vol.31,#8, May. 2007 REASON FOR VISIT FASTING LIPIDS Encounters Encounter Location Date Provider Diagnosis Blue Acosta MD [address] [place] [address] [place] [phone] 01/02/2025 Blue Acosta Mixed hyperlipidemia E78.2 and Prediabetes R73.09 Assessments Encounter Date Diagnosis (ICD Code) Assessment Notes Treatment Notes Treatment Clinical Notes Section Notes 01/02/2025 Mixed hyperlipidemia (ICD-10 - E78.2) 01/02/2025 Prediabetes (ICD-10 - R73.09) Plan Of Treatment Next Appt Details Provider Name:Blue garrido, 07/10/2025 07:00:00 AM, [address] [place] [address], Suite [facility], [place], [place], [phone], Provider Name:Blue garrido, 07/16/2025 08:00:00 AM, [address] [place] [address], [address], [place], [place], [phone], Progress Notes * Mahin AMBROCIO GDOB:[birth year] (69 yo M)Acc No.[id number]:01/02/2025 Progress Note Patient: Mahin LAWRENCE Provider: Madan Acosta MD :1955 A ge:69 Y S ex:Male Date:01/02/2025 Address:[address] [place], [place] [phone] Subjective: * Chief Complaints: * 1 . [...] MD Date: 0 01/02/2025 Generated for Navjot mccall/Janay/eTravismitting on: 0 06/29/2025 03:57 PM EDT
--- OUTSIDE RECORDS SUMMARY | 2025-01-08 16:26 | XMS_ITS ---
Author Organization Blue Acosta MD Address 10 [facility] [address] [place] [address] [phone] Care Team Providers Care Agronomy Specialist Name Role Phone Blue Acosta Primary Care Provider [phone] REASON FOR VISIT ER Encounters Encounter Location Date Provider Diagnosis Blue Acosta MD [address] [place] [address] [place] [address] [phone] 01/08/2025 Blue Acosta Plan Of Treatment Next Appt Details Provider Name:Blue Arechiga ier, 07/10/2025 07:00:00 AM, [address] [place] [address], Suite [facility], [place], [place], [phone], Provider Name:Blue Arechiga ier, 07/16/2025 08:00:00 AM, [address] [place] [address], Suite [facility], [place], [place], [phone], Progress Notes * Mahin AMBROCIO GDOB:[birth year] (69 yo M)Acc No.[id number]:01/08/2025 Patient: Mahin LAWRENCE :1955 A ge:69 Y S ex:Male Address:[address] [place] [phone] * true * Date: Generated for Printi ng/Faxing/eTransmitting on: 0 06/29/2025 03:58 PM EDT
--- OUTSIDE RECORDS SUMMARY | 2025-01-09 05:15 | XMS_ITS ---
Author Organization Blue Acosta MD Address [address] [place], [place] [phone] Care Team Providers Care Insulation Cupola Operator Name Role Phone Blue Acosta Primary Care Provider [phone] Allergies Allergen (clinical drug ingredient) Drug/Non Drug [...] kg/m2 01/09/2025 weight is down 6 pounds [facility] e 07-10-24 Encounters Encounter Location Date Provider Diagnosis Blue Acosta MD [address] [place] [address] [address] [place], [place] [phone] 01/09/2025 Blue Acosta Pleural effusion J90 ; [...] testing, THE ORDER HAS BEEN FAXED TO [facility] FOR SCHEDULING 01/09/2025 Foot drop, left (ICD-10 [...] testing, THE ORDER HAS BEEN FAXED TO [facility] FOR SCHEDULING Foot drop, left pending diagnostic t esting Prediabetes stable, no need for medication at this time, will contiue to monitor Mixed hyperlipidemia stable, will contin ue current regiment Pending Test Test Name Order Date MRI LUMBAR SPINE NO CONTRAST 01/09/2025 XR CHEST 2 VIEW PA & LAT 01/09/2025 Next Appt Details Provider Name:Blue Arechiga ier, 07/10/2025 07:00:00 AM, [address] [place] [address], [address], [place], [place], [phone], Provider Name:Blue Arechiga ier, 07/16/2025 08:00:00 AM, [address] [facility], [address], [place], [place], [phone], Progress Notes * AMBROCIOKyrie CHEUNG GDOB:[birth year] (69 yo M)Acc No.[id number]:01/09/2025 Progress Notes Patient: Kyrie LAWRENCE Provider: Madan Acosta MD :1955 A ge:69 Y S ex:Male Date:01/09/2025 Address:[address] [place], [place] [phone] Subjective: * Chief Complaints: * 6 MO [...] testing, THE ORDER HAS BEEN FAXED TO [facility] FOR SCHEDULING 3. F oot drop, left [...] 01/09/2025 Generated for Navjot mccall/Janay/eTransmitting on: 0 06/29/2025 03:57 PM EDT History and Physical Notes * [...]
--- OUTSIDE RECORDS SUMMARY | 2025-01-12 04:57 | XMS_ITS ---
Author Organization Blue Acosta MD Address 10 [facility] [address] [place] [address] [phone] Care Team Providers Care 1St Pressman On Web Press Name Role Phone Blue Acosta Primary Care Provider REASON FOR VISIT MRI order Encounters Encounter Location Date Provider Diagnosis Blue Acosta MD [address] [place] [address] [address] [place] [address] [phone] 01/12/2025 Blue Acosta Plan Of Treatment Next Appt Details Provider Name:Blue Arechiga ier, 07/10/2025 07:00:00 AM, [address] [place] [address], [address] [place] [address], [phone], Provider Name:Blue Arechiga ier, 07/16/2025 08:00:00 AM, [address] [place] [address], [address] [place] [address], [phone], Progress Notes * Mahin AMBROCIO GDOB:[birth year] (69 yo M)Acc No.[id number]:01/12/2025 Patient: Mahin LAWRENCE :1955 A ge:69 Y S ex:Male Address:[address] [place] [phone] * true * Date: Generated for Printi ng/Faxing/eTransmitting on: 0 06/29/2025 03:58 PM EDT
--- OUTSIDE RECORDS SUMMARY | 2025-01-13 10:52 | XMS_ITS ---
Author Organization Blue Acosta MD Address [address] [place] [address] [place] [address] [phone] Care Team Providers Care Voltage Regulator Assembler Name Role Phone Blue Acosta Primary Care Provider REASON FOR VISIT Repeat CXR Encounters Encounter Location Date Provider Diagnosis Blue Acosta MD [address] [place] [address] [phone] 01/13/2025 Blue Acosta Pleural effusion J90 Assessments [...] Details Provider Name:Blue garrido, 07/10/2025 07:00:00 AM, [address] [place] [address], [address], [phone], Provider Name:Blue garrido, 07/16/2025 08:00:00 AM, [address] [place] [address], [address], [phone], Progress Notes * Maihn AMBROCIO GDOB:[birth year] (69 yo M)Acc No.[id number]:01/13/2025 Patient: Mahin LAWRENCE :1955 A ge:69 Y S ex:Male Address:[address] [place] [address] Subjective: * Chief Complaints: * R epeat CXR * Medical History: * Surgical History: * Hospitalization/Major Diagno stic Procedure: * Medications: Objective: * Vitals: * Physical Examination: Assessment: * Assessment: 1. P leural effusion - J90 Plan: * Treatment: * Procedure Codes: * true * Date: Generated for Navjot mccall/Janay/Dietersmitting on: 0 06/29/2025 03:58 PM EDT
--- OUTSIDE RECORDS SUMMARY | 2025-03-20 05:30 | XMS_ITS ---
Author Organization [facility] Address [address] [place] [address] Care Team Providers Care Solar Energy Installation Manager Name Role Phone Blue Acosta MD Primary Care Provider Corby Michel [phone] REASON FOR VISIT screening Encounters Encounter Location Date Provider Diagnosis [facility] Outpatient [address] [place] [id number] 03/20/2025 Corby Sanchez Plan Of Treatment No Information Progress Notes * JORGEADRIENNEIN GDOB:[birth year] (69 yo M)Acc No.[id number]:03/20/2025 COLON WITH MAC Patient: KYRIE LAWRENCE Provider: Del Sanchez MD :1955 A ge:69 Y S ex:Male Date:03/20/2025 Address:[address] [place], [place] [phone] Pcp:Blue Acosta MD Subjective: * Chief Complaints: [...] 03/20/2025 Generated for Printi ng/Faxing/eTransmitting on: 0 06/29/2025 03:57 PM EDT
--- OUTSIDE RECORDS SUMMARY | 2025-03-30 09:10 | XMS_ITS ---
Author Organization [facility] Address [address] [place] [address] Care Team Providers Care Brazing Machine Operator Name Role Phone Blue Acosta MD Primary Care Provider Corby Michel [phone] Encounters Encounter Location Date Provider Diagnosis [facility] [place] [address] [place] [id number] 03/30/2025 Corby Sanchez Colon cancer scree ascencion [...] KYRIE JORGE GDOB:[birth year] (69 yo M)Acc No.[id number]:03/30/2025 COLON WITH MAC Patient: Yanick COLEMANPEYMAN KYRIE G Provider: Del Sanchez MD :1955 A ge:69 Y S ex:Male Date:03/30/2025 Address:[address] [place], [place] [phone] Pcp:Blue Acosta MD Subjective: * Chief Complaints: [...] 03/30/2025 Generated for Navjot mccall/Janay/Tanoitting on: 0 06/29/2025 03:58 PM EDT
--- OUTSIDE RECORDS SUMMARY | 2025-06-29 15:58 | XMS_ITS | Patient Health Record ---
Author Organization [facility] hallie Sherrill Address [address] [place] [address] Care Team Providers Care Brick Washer Name Role Phone Blue Acosta MD Primary Care Provider Milli Jimenez Unavailable [phone] Allergies Allergen (clinical drug ingredient) Drug/Non Drug [...] W/U Status Risk Notes Problem Tinea unguium (161796728) Tinea unguium (B35.1) Active confirmed Problem Acquired hammer toe of left foot (2899157673683067 ) Other hammer toe(s) (acquired), left foot (M20.42) Active confirmed Problem Localized, primary osteoarthritis of the ankle and/or foot (961709522) Arthritis of joint of lesser toe, left [...] X ray : Foot, left 3V 05/06/2024 94151-ACXOXZL NAIL, 1-5 08/17/2023 11551-IEKZDHU NAIL, 1-5 03/31/2016 86597- Debride <25 sq cm 09/02/2013 65221- Debride <25 sq cm 08/17/2023 73605-EDDNDYV SKIN/TISSUE 07/07/2013 38492-MIWIDZC SKIN/TISSUE 07/22/2013 94418-TZKLLKS SKIN/TISSUE 08/12/2013 Insurance Providers Payer Name Payer Address Payer Phone Subscriber Number Group Number Insured Name Patient Relationship to Insured Coverage Start Date Coverage End Date Medicare National [employer] [address] [facility] [place] [address] [phone] [id number] Mahin Ha Self - patient is the insured [facility] [address] [place] [address] [id number] Mahin Ha Self - patient is [...]
--- OUTSIDE RECORDS SUMMARY | 2025-06-29 15:58 | XMS_ITS | Patient Health Record ---
Author Organization [facility] Address [address] [place] [phone] Care Team Providers Care Coal Picker Name Role Phone Bleu Acosta MD Primary Care Provider Corby Michel [phone] Allergies Allergen (clinical drug ingredient) Drug/Non Drug [...] Status Risk Notes Problem Irritable bowel syndrome (22702631) Irritable bowel syndrome (K58.9) Active confirmed Problem 610442973 Encounter for screening for malignant neoplasm of colon (Z12.11) Active confirmed Problem 561375547 History of adenomatous polyp of colon (Z86.010) Active confirmed Problem Constipation (55405803) Constipation (K59.00) Active confirmed Problem Abdominal bloating (082450102) Abdominal bloating (R14.0) Active confirmed Problem 488975727050178 Preprocedural examination (Z01.818) Active confirmed Problem 007090875 Long-term use of aspirin therapy (Z79.82) Active confirmed Problem Chronic constipation (696453236) Constipation, chronic (K59.00) Active confirmed Problem Benign neoplasm of colon (18530903) Serrated adenoma of colon (D12.6) Active confirmed Problem Serrated polyp of colon (491905133) Serrated polyp of colon (K63.5) Active confirmed Vital Signs Blood pressure diastolic 11 mm Hg 12/11/2024 Height 74 in 12/11/2024 Blood pressure systolic 111 mm Hg 12/11/2024 Weight 337 lbs 12/11/2024 BMI 43.26 kg/m2 12/11/2024 Procedures Procedure Date Ordered Date Performed Result Body Sit e COLONOSCOPY 12/11/2024 N/A Encounters Encounter Location Date Provider Diagnosis [facility] Outpatient [address], [place] [phone] 03/30/2025 Corby Sanchez Colon cancer screeni ng Z12.11 ; Personal history of adenomatous and serrated colon polyps Z86.0101 ; Diverticulosis of large intestine without perforation or abscess without bleeding K57.30 and Other hemorrhoids K64.8 [facility] [address] [place] [phone] 12/11/2024 Corby Sanchez History of adenomato us polyp of colon Z86.010 ; Abdominal bloating R14.0 ; Encounter for screening for malignant neoplasm of colon Z12.11 ; Preprocedural examination Z01.818 ; Long-term use of aspirin therapy Z79.82 ; Serrated polyp of colon K63.5 ; Serrated adenoma of colon D12.6 and Irritable bowel syndrome K58.9 [facility] [address] [place] [phone] 02/24/2025 Corby Sanchez [facility] [address] [place] [phone] 03/26/2025 Corby Daniel Assessments Encounter Date Diagnosis [...] advised him that he could try some fuym-iry-iuzsegb simethicone to help with the bloating and [...] advised him that he could try some zzjz-wzr-lvrhhmo simethicone to help with the bloating and [...] advised him that he could try some kzio-qla-yryhvzi simethicone to help with the bloating and [...] advised him that he could try some lxbu-xpq-kzlmbjz simethicone to help with the bloating and [...] advised him that he could try some encx-sfw-ogvqhbu simethicone to help with the bloating and [...] advised him that he could try some dfpa-aqo-msgphzs simethicone to help with the bloating and [...] advised him that he could try some cgta-ddl-dgurpoe simethicone to help with the bloating and [...] advised him that he could try some vwsb-dff-xqzlqqi simethicone to help with the bloating and [...] OF [place] [address] A[place] C[place]O [address] [id number] KYRIE JORGE Self - patient is the insured [employer] ([employer]) [address] [place] [address] [id number] JORGE, KYRIE Self - patient is the insured Medical (General) History Medical History History ICD Code Colonoscopy 12/29/2005-negati ve for polyps; colonoscopy in 04/2012 with a tiny serrated adenoma of the cecum, diverticulosis, and internal hemorrhoids ERCP for choledocholithiasis in 06/2005 Duodenal ulcers in 2004 Denies PR,DM,CVA,Lung disease,renal dise ase HTN Sleep apnea--uses a [...]
--- OUTSIDE RECORDS SUMMARY | 2025-06-29 15:58 | XMS_ITS | Patient Health Record ---
Author Organization Blue Acosta MD Address [address] [place], [place] [id number] Care Team Providers Care [employer] Superintendent Name Role Phone Blue Acosta Primary Care Provider Allergies Allergen (clinical drug ingredient) Drug/Non Drug Allergy documented on EMR Reaction Allergy Type Onset Date Status zolpidem ambien (uncoded) hallucinations Allergy Active amoxil (uncoded) rash Allergy Act dick Results Component Value Reference Range Notes Complete Blood Count Auto Di ff Reviewed date:07/03/2024 05:03:13 PM Interpretation: Performing Lab:[facility], [address] [place] [phone] Notes/Report: White Blood Count 8.5 4.8-10.8 X10*3/uL [...] NRBC Abs Auto 0.000 0.0-0.012 X10*3/uL Comprehensive [place]. Panel Fa Reviewed date:07/03/2024 12:20:41 PM Interpretation: Performing Lab:[facility], [address] [place] [phone] Notes/Report: Sodium 140 135-145 mmol/L Potassium 4.2 3.3-5.1 mmol/L Chloride 105 96-108 mmol/L Carbon Dioxide 28 22-29 mmol/L Anion Gap 11 12-20 Blood Urea Nitrogen 16 9-16 mg/dL Creatinine 0.91 0.5-1.4 mg/dL Estimated Glomerular Filt Rate > 60 NOTE: For -Gambian individuals, multiply the result by 1.210. Chronic [...] Panel Reviewed date:07/03/2024 12:16:21 PM Interpretation: Performing Lab:[facility], [address] [place] [phone] Notes/Report: Triglycerides 103 <150 mg/dL Desirable Triglyceride: [...] (Free>4and<10) Reviewed date:07/03/2024 12:17:59 PM Interpretation: Performing Lab:[facility], [address] [place] [phone] Notes/Report: PSA,Total (Free>4and<10) 0.31 0.00-4.00 ng/mL A [...] Random Reviewed date:07/03/2024 12:30:42 PM Interpretation: Performing Lab:[facility], [address] [place] [phone] Notes/Report: Creatinine Urine 52.54 Microalbumin Urine < 5.0 Microalbum/Creatinine Ratio Ur TNP <30 ug/mg cr Unable to calculate albumin/creatinine ratio due to low microalbumin or creatinine result. Hemoglobin A1c Reviewed date:07/03/2024 12:16:31 PM Interpretation: Performing Lab:[address] [phone] Notes/Report: Hemoglobin A1c % 5.6 <6.0 % [...] average glucose, using the formula of the I8R-Urfifca Average Glucose study (ADAG), Diabetes Care, Vol.31,#8, 2007 UA ClnCatch+Micro w/rflx Cul t Reviewed date:07/03/2024 12:27:43 PM Interpretation: Performing Lab:[address] [address] Notes/Report: Urine, Clean Catch Color Urine Yellow Appearance Urine Clear PH 5.5 5.0-9.0 Glucose Urine UA Negative Negative mg/dL Urine Blood Negative Negative Specific [place] - Urine 1.010 1.005-1.025 Urine Protein Negative Neg-Trace mg/dL Urine Ketones Negative Negative mg/dL Nitrite Urine Negative Negative Leukocyte Esterase Urine Negative Negative RBC Urine 0-2 0-2 /HPF WBC Urine 0-5 0-5 /HPF Squamous Epithelial Cell Urine 0-2 0-2 /HPF Bacteria Urine None Seen None Seen Hyaline Casts Urine 0-2 0-2 /LPF Liver Panel Reviewed date:01/02/2025 12:30:46 PM Interpretation: Performing Lab:[facility], [address] [place] [phone] Notes/Report: Bilirubin Total 0.6 0.0-1.0 mg/dL Bilirubin Direct 0.3 0.0-0.5 mg/dL Aspartate Amino Transferase 29 5-37 U/L Alanine Aminotransferase 22 0-40 U/L Total Protein 7.6 6.5-8.0 g/dL Albumin Level 3.9 3.5-5.0 g/dL Alkaline Phosphatase 80 39-117 U/L Glucose Fasting Reviewed date:01/02/2025 12:30:54 PM Interpretation: Performing Lab:[facility], [address] [place] [phone] Notes/Report: Glucose Fasting 118 60-99 mg/dL A fasting glucose from 100-125 mg/dl is considered impaired (pre-diabetes). Lipid Panel with Reflex Reviewed date:01/02/2025 12:31:05 PM Interpretation: Performing Lab:[facility], [address] [place] [phone] Notes/Report: Triglycerides 118 <150 mg/dL Desirable Triglyceride: [...] A1c Reviewed date:01/03/2025 06:16:13 PM Interpretation: Performing Lab:[facility], [address] [place] [phone] Notes/Report: Hemoglobin A1c % 5.6 <6.0 % [...] average glucose, using the formula of the U1Q-Qpjamyi Average Glucose study (ADAG), Diabetes Care, Vol.31,#8, May. 2007 Johnie Milner Reviewed date:01/02/2025 12:23:00 PM Interpretation: Performing Lab:[facility], [address] [place] [phone] Notes/Report: Hold Gold See Note Specimen held untested for 24 hours; Call to request Chemistry testing. Complete Blood Count Auto Di ff Reviewed date:01/06/2025 08:02:47 PM Interpretation: Performing Lab:[facility], [address] [place] [phone] Notes/Report: White Blood Count 12.8 4.8-10.8 X10*3/uL [...] Panel Reviewed date:01/06/2025 08:04:15 PM Interpretation: Performing Lab:[facility], [address] [place] [phone] Notes/Report: Sodium 140 135-145 mmol/L Potassium 4.1 [...] Magnesium Reviewed date:01/06/2025 07:58:26 PM Interpretation: Performing Lab:[address] [phone] Notes/Report: Magnesium 1.8 1.6-2.6 mg/dL Lipase Reviewed date:01/06/2025 07:58:34 PM Interpretation: Performing Lab:[address] [phone] Notes/Report: Lipase 23 8-78 U/L CT NG by PCR Reviewed date:01/07/2025 02:59:49 PM Interpretation: Performing Lab:[address] [address] Notes/Report: Urine CT PCR NOT DETECTED Not [...] Cult Reviewed date:01/08/2025 04:41:34 PM Interpretation: Performing Lab:[facility], [address] [place] [phone] Notes/Report: Urine, Clean Catch Color Urine Yellow Appearance Urine Clear PH 5.5 5.0-9.0 Glucose Urine UA Negative Negative mg/dL Urine Blood Negative Negative Specific [place] - Urine 1.015 1.005-1.025 Urine Protein Negative Neg-Trace mg/dL Urine Ketones Negative Negative mg/dL Nitrite Urine Negative Negative Leukocyte Esterase Urine Negative Negative CT abdomen pelvis wo con Reviewed date:01/06/2025 08:03:52 PM Interpretation: Performing Lab: Notes/Report: [address] [address] [address] Scan Report Signed Patient: Mahin Ambrocio MR#: [id number] 045 : 1955 Acct:[id number] Age/Sex: 69 / M ADM Date: 01/06/25 Loc: .ED Attending Dr: Ordering Physician: Cristina Birmingham Date of Service: 01/06/25 Procedure(s): CT abdomen pelvis wo IV con Accession Number(s): [id number] cc: Blue Acosta MD; Cristina Birmingham Report Number: [id number]: Total DLP = 1401.00 mGy-cm EXAMINATION: CT [...] 01/06/25 1414 DD/ 1310 TD/TT: 01/06/25 1402 Spraying Machine Operator: [place] [address] CT Scan Report Signed Patient: Ziyad Ambrocio G MR#: [id number] 045 : 1955 Acct:[id number] Age/Sex: 69 / M ADM Date: 01/06/25 Loc: HO.ED Attending Dr: Ordering Physician: Cristina Birmingham Date of Service: 01/06/25 Procedure(s): CT abd omen pelvis wo IV con Accession Number(s): [id number] cc: Blue Acosta MD; Cristina Birmingham Report Number: [id number]: Total DLP = 1401.00 mGy-cm EXAMINATION: CT [...] 01/06/25 1414 DD/ 1310 TD/TT: 01/06/25 1402 Spraying Machine Operator: scrotum Reviewed date:01/07/2025 03:00:25 PM Interpretation: Performing Lab: Notes/Report: [address] [address] Ultrasound Report Signed Patient: Mahin Ambrocio MR#: [id number] 045 : 1955 Acct:[id number] Age/Sex: 69 / M ADM Date: 01/06/25 Loc: HO.ED Attending Dr: Ordering Physician: Omid Lopez MD Date of Service: 01/06/25 Procedure(s): US scrotum Accession Number(s): [id number] cc: Blue Acosta MD; Omid Lopez MD CLINICAL HISTORY: L testicular pain. Ultrasound scrotum. COMPARISON: None Technique: Real time sonographic imaging, including color-flow imaging, was performed by the display artist. Multiple event representative static images were saved for review. [...] OV> 01/07/25 0804 DD/ 15 TD/TT: 01/06/251815 Spraying Machine Operator: [place] [address] Ultrasound Report Signed Patient: Ziyad Ambrocio MR#: [id number] 045 : 1955 Acct:[id number] Age/Sex: 69 / M ADM Date: 01/06/25 Loc: HO.ED Attending Dr: Ordering Physician: Omid Lopez MD Date of Service: 01/06/25 Procedure(s): US scrotum Accession Number(s): [id number] cc: Blue Acosta MD; Omid Lopez MD CLINICAL HISTORY: L testicular pain. Ultrasound scrotum. COMPARISON: None Technique: Real time sonographic imaging, including color-flow imaging, was performed by the display artist. Multiple event representative static images were saved for review. [...] 01/07/25 0804 DD/ 181 TD/TT: 01/06/25 181 Spraying Machine Operator: US scrotum doppler Reviewed date:01/06/2025 08:04:52 PM Interpretation: Performing Lab: Notes/Report: [address] [address] Ultrasound Report Signed Patient: Mahin Ambrocio MR#: [id number] 045 : 1955 Acct:[id number] Age/Sex: 69 / M ADM Date: 01/06/25 Loc: .ED Attending Dr: Ordering Physician: Louise Callejas Date of Service: 01/06/25 Procedure(s): US scrotum doppler Accession Number(s): [id number] cc: Blue Acosta MD; Louise Callejas CLINICAL HISTORY: L testicular pain. Ultrasound scrotum. COMPARISON: None Technique: Real time sonographic imaging, including color-flow imaging, was performed by the display artist. Multiple event representative static images were saved for review. [...] in OV> 01/06/251815 DD/ 15 TD/TT: 01/06/251815 Spraying Machine Operator: [place] [address] Ultrasound Report Signed Patient: Ziyad Ambrocio MR#: [id number] 045 : 1955 Acct:[id number] Age/Sex: 69 / M ADM Date: 01/06/25 Loc: HO.ED Attending Dr: Ordering Physician: Louise Callejas Date of Service: 01/06/25 Procedure(s): US scr otum doppler Accession Number(s): [id number] cc: Blue Acosta MD; Louise Callejas CLINICAL HISTORY: L testicular pain. Ultrasound scrotum. COMPARISON: None Technique: Real time sonographic imaging, including color-flow imaging, was performed by the display artist. Multiple event representative static images were saved for review. [...] in OV> 01/06/251815 DD/ 15 TD/TT: 01/06/251815 Spraying Machine Operator: XR chest 2V Reviewed date:01/13/2025 02:56:25 PM Interpretation: Performing Lab: Notes/Report: [place] [address] XRay Report Signed Patient: Mahin Ambrocio MR#: [id number] 045 : 1955 Acct:[id number] Age/Sex: 69 / M ADM Date: 01/09/25 Loc: SHAY Attending Dr: Blue Acosta MD Ordering Physician: Blue Acosta MD Date of Service: 01/09/25 Procedure(s): XR chest 2V Accession Number(s): [id number] cc: Blue Acosta MD EXAMINATION: XR CHEST [...] 01/09/25 1059 DD/ 1000 TD/TT: 01/09/25 1010 Spraying Machine Operator: [address] [address] XRay Report Signed Patient: Ziyad Ambrocio in G MR#: [id number] 045 : 1955 Acct:[id number] Age/Sex: 69 / M ADM Date: 01/09/25 Loc: HO.XRAY Attending Dr: Blue Acosta MD Ordering Physician: Blue Acosta MD Date of Service: 01/09/25 Procedure(s): XR isaias st 2V Accession Number(s): [id number] cc: Blue Acosta MD EXAMINATION: XR CHEST [...] 01/09/25 1059 DD/ 1000 TD/TT: 01/09/25 1010 Spraying Machine Operator: MR summers vidhisimran sahra Reviewed date:02/17/2025 04:48:05 PM Interpretation: Performing Lab: Notes/Report: [address] [address] Magnetic Resonance Report Signed Patient: Mahin Ambrocio MR#: [id number] 045 : 1955 Acct:[id number] Age/Sex: 69 / M ADM Date: 02/16/25 Loc: HO.MRI Attending Dr: Jamey Rojas MD Ordering Physician: Jamey Rojas MD Date of Service: 02/16/25 Procedure(s): MR abdomen wo/w con Accession Number(s): [id number] cc: Blue Acosta MD; Jamey Rojas MD CLINICAL HISTORY: N28.1 - Cyst of kidney, acquired MR abdomen with and without gadolinium Comparison: CT/MA/SR - CT ABDOMEN PELVIS WO IV CON [...] 02/17/25 1311 DD/ 1309 TD/TT: 02/17/25 1309 Spraying Machine Operator: [address] [address] Magnetic Resonance Report Signed Patient: Ziyad Ambrocio MR#: [id number] 045 : 1955 Acct:[id number] Age/Sex: 69 / M ADM Date: 02/16/25 Loc: HO.MRI Attending Dr: Jamey Rojas MD Ordering Physician: Jamey Rojas MD Date of Service: 02/16/25 Procedure(s): MR abd omen wo/w con Accession Number(s): [id number] cc: Blue Acosta MD; Jamey Rojas MD CLINICAL HISTORY: N2 8.1 - Cyst of kidney, acquired MR abdomen with and without gadolinium Comparison: CT/MA/SR - CT ABDOMEN PELVIS WO IV CON [...] 02/17/25 1311 DD/ 1309 TD/TT: 02/17/25 1309 Spraying Machine Operator: XR lumbar spine 4V min Reviewed date:02/23/2025 12:34:44 PM Interpretation: Performing Lab: Notes/Report: [facility] [address] [place] [address] XRay Report Signed Patient: Mahin Ambrocio MR#: [id number] 045 : 1955 Acct:[id number] Age/Sex: 69 / M ADM Date: 02/20/25 Loc: HO.HOSX Attending Dr: Simon Solano MD, PhD Ordering Physician: Simon Solano MD, PhD Date of Service: 02/20/25 Procedure(s): XR lumbar spine 4V min Accession Number(s): [id number] cc: Blue Acosta MD; Simon Solano MD, PhD CLINICAL HISTORY: M43.16 - Spondylolisthesis, lumbar region 4 views lumbar spine Comparison: CT/MA/SR - CT ABDOMEN PELVIS WO IV CON [...] in OV> 02/23/25822 DD/ 1 TD/TT: 02/23/25821 Spraying Machine Operator: [facility] [address] [place] [address] XRay Report Signed Patient: Ziyad Ambrocio MR#: [id number] 045 : 1955 Acct:[id number] Age/Sex: 69 / M ADM Date: 02/20/25 Loc: HONIDIA Attending Dr: Richard Solano MD, PhD Ordering Physician: Simon Solano MD, PhD Date of Service: 02/20/25 Procedure(s): XR lum bar spine 4V min Accession Number(s): [id number] cc: Blue Acosta MD; Simon Solano MD, PhD CLINICAL HISTORY: M4 3.16 - Spondylolisthesis, lumbar region 4 views lumbar spine Comparison: CT/MA/SR - CT ABDOMEN PELVIS WO IV CON [...] in OV> 02/23/25822 DD/ 1 TD/TT: 02/23/25821 Spraying Machine Operator: US bladder Reviewed date:05/28/2025 12:37:23 PM Interpretation: Performing Lab: Notes/Report: [facility] [address] [place] [address] Ultrasound Report Signed Patient: Mahin Ambrocio MR#: [id number] 045 : 1955 Acct:[id number] Age/Sex: 69 / M ADM Date: 05/28/25 Loc: HO.HMGCX Attending Dr: Don Aj MD Ordering Physician: Don Aj MD Date of Service: 05/28/25 Procedure(s): US bladder Accession Number(s): [id number] cc: Don Aj MD; Blue Acosta MD CLINICAL HISTORY: N32.0 - Bladder-neck obstruction US bladder with color Doppler Comparison: US/MA - US SCROTUM DOPPLER - 01/06/25 17:[address]/MA/SR - CT ABDOMEN PELVIS WO IV CON [...] in OV> 05/28/25946 DD/ 5 TD/TT: 05/28/25945 Spraying Machine Operator: [facility] Adult [address] [place] [address] Ultrasound Report Signed Patient: Ziyad Ambrocio MR#: [id number] 045 : 1955 Acct:[id number] Age/Sex: 69 / M ADM Date: 05/28/25 Loc: HO.HMGCX Attending Dr: Joselin Bach MD Ordering Physician: Don Aj MD Date of Service: 05/28/25 Procedure(s): US bladder Accession Number(s): [id number] cc: Don Aj MD; Blue Acosta MD CLINICAL HISTORY: N3 2.0 - Bladder-neck obstruction US bladder with colo r Doppler Comparison: US/MA - US SCROTUM DOPPLER - 01/06/25 17:[address]/MA/SR - CT ABDOME N PELVIS WO IV [...] in OV> 05/28/25946 DD/ 5 TD/TT: 05/28/25945 Spraying Machine Operator: Reason For Referral No Information Medications Medication [...] Administered pt was given the vaccine at [facility] on [facility]. Fluarix Quadrivalent IM Intramuscular 06/24/2018 Administe [...] Problem Status W/U Status Risk Notes Problem 916987417 Diverticulitis (K57.92) Active confirmed Problem 126207676 Mixed hyperlipidemia (E78.2) Active confirmed Problem 847523756 Paroxysmal atria l fibrillation (I48.0) Active confirmed Problem 73949982 Atherosclerosis of aorta (I70.0) Active confirmed Problem 10218341592258312 Acute recurren t frontal sinusitis (J01.11) Active confirmed Problem 951683077 Angina effort (I20.8) Active confirmed Problem 288977381 Lumbar disc disease (M51.9) Active confirmed Problem 616954334 Tubular adenoma of colon (D12.6) Active confirmed Problem 13651183 Essential hypertension (I10) Active confirmed Problem 1778678 Prediabetes (R73.09) Active confirmed Problem 431278115 Morbid obesity d ue to excess calories (E66.01) Active confirmed Problem 184340314 Cervical disc disease (M50.90) Active confirmed Problem 114031592 Hammertoe of lef t foot (M20.42) Active [...] [address] [place], [place] [phone] 07/03/2024 Blue Acosta Mixed hyperlipidemia E78.2 ; Encounter for immunization Z23 ; Essential hypertension I10 and Prediabetes R73.09 Blue Acosta MD [address] [place] [id number] 01/02/2025 Blue Acosta Mixed hyperlipidemia E78.2 and Prediabetes R73.09 Blue Acosta MD [address] [place] [id number] 07/10/2024 Blue Acosta Essential hypertensi on I10 ; Prediabetes R73.09 ; Morbid obesity due to excess calories E66.01 ; Guaiac positive stools R19.5 ; Mixed hyperlipidemia E78.2 ; Colon cancer screening Z12.11 ; Depression screening Z13.31 and Paroxysmal atrial fibrillation I48.0 Blue Acosta MD [address] [place] [id number] 01/09/2025 Blue Acosta Pleural effusion J90 ; Lumbar disc disease with radiculopathy M51.16 ; Foot drop, left M21.372 ; Prediabetes R73.09 and Mixed hyperlipidemia E78.2 Blue Acosta MD [address] [place] [id number] 01/08/20[address] [place] [id number] 01/12/2025 [address] [place] [id number] 01/13/2025 Blue Acosta Pleural effusion J90 Assessments [...] THE ORDER WAS PRINTED AND GIVEN TO MHAIN 01/09/2025 Lumbar disc disease with radiculopathy (ICD-10 - M51.16) pending diagnstic testing, THE ORDER HAS BEEN FAXED TO [employer] FOR SCHEDULING 01/13/2025 Pleural effusion (ICD-10 - [...] Details Provider Name:Blue garrido, 07/10/2025 07:00:00 AM, [address] [place] [address], [address], [place], [place], [phone], Provider Name:Blue garrido, 07/16/2025 08:00:00 AM, [address] [place] [address] Drive, [address], [place], [place], [id number], Insurance Providers Payer Name Payer Address Payer Phone Subscriber Number Group Number Insured Name Patient Relationship to Insured Coverage Start Date Coverage End Date [employer] [address] [place] [address] [id number] Mahin Ambrocio Self - patient is the insured [facility] [address] [place] [phone] [id number] Mahin Ambrocio Self - patient is the insured Medical (General) History Medical History History ICD Code colonoscopy 04/2012 for recta l bleeding due in 10 years; Colonoscopy done 10/27/[address] Sanchez - repeat 5 years. 03/30/25 colonoscopy - Daniel repeat 5y
== END 2025-06-29 11:42 | disposition home or self-care (01) ==
LOC: HO.HMGAL 11:35
PROVIDERS: PCP Internal Medicine; Visit Provider Registered Nurse Emergency
DX: J30.89 Other allergic rhinitis (principal)
CPT/HCPCS: 95117; 95165

== ENCOUNTER 2025-07-06 11:07 | Outpatient (AMB) | payer MEDICARE, OTHER, SELFPAY ==
--- OUTSIDE RECORDS SUMMARY | 2024-04-23 06:00 | XMS_ITS ---
Author Organization [facility] Address [address] [facility] [place] [address] Care Team Providers Care Hydraulic Auto Jack Mechanic Name Role Phone Karla PAZ, Blue Primary Care Provider UnaMilli Barrett Unavailable [phone] Encounters Encounter Location Date Provider Diagnosis Surgery [facility] ([facility]) [address] [place] [phone] 04/23/2024 Milli Yost Plan Of Treatment No Information Progress Notes * Mahin JORGE GDOB:[birth year] (69 yo M)Acc No.[id number]:04/23/2024 Patient: Mahin LAWRENCE Provider: Harjit Yost DPM [...] 04/23/2024 Generated for Printi ng/Faxing/eTransmitting on: 0 07/06/2025 01:47 PM EDT
--- OUTSIDE RECORDS SUMMARY | 2025-01-02 04:00 | XMS_ITS ---
Author Organization Blue Acosta MD Address [address] [place], [place] [phone] Care Team Providers Care Hvac Service Manager Name Role Phone Blue Acosta Primary Care Provider [phone] Results Component Value Reference Range Notes Liver Panel Reviewed date:01/02/2025 12:30:46 PM Interpretation: Performing Lab:[address] [phone] Notes/Report: Bilirubin Total 0.6 0.0-1.0 mg/dL Bilirubin Direct 0.3 0.0-0.5 mg/dL Aspartate Amino Transferase 29 5-37 U/L Alanine Aminotransferase 22 0-40 U/L Total Protein 7.6 6.5-8.0 g/dL Albumin Level 3.9 3.5-5.0 g/dL Alkaline Phosphatase 80 39-117 U/L Glucose Fasting Reviewed date:01/02/2025 12:30:54 PM Interpretation: Performing Lab:[address] [address] Notes/Report: Glucose Fasting 118 60-99 mg/dL A fasting glucose from 100-125 mg/dl is considered impaired (pre-diabetes). Lipid Panel with Reflex Reviewed date:01/02/2025 12:31:05 PM Interpretation: Performing Lab:[address] [address] Notes/Report: Triglycerides 118 <150 mg/dL Desirable Triglyceride: [...] A1c Reviewed date:01/03/2025 06:16:13 PM Interpretation: Performing Lab:[facility], [address] [place] [phone] Notes/Report: Hemoglobin A1c % 5.6 <6.0 % [...] average glucose, using the formula of the O6X-Ltpimws Average Glucose study (ADAG), Diabetes Care, Vol.31,#8, May. 2007 REASON FOR VISIT FASTING LIPIDS Encounters Encounter Location Date Provider Diagnosis Blue Acosta MD [address] [place] [address] [place] [phone] 01/02/2025 Blue Acosta Mixed hyperlipidemia E78.2 and Prediabetes R73.09 Assessments Encounter Date Diagnosis (ICD Code) Assessment Notes Treatment Notes Treatment Clinical Notes Section Notes 01/02/2025 Mixed hyperlipidemia (ICD-10 - E78.2) 01/02/2025 Prediabetes (ICD-10 - R73.09) Plan Of Treatment Next Appt Details Provider Name:Blue garrido, 07/10/2025 07:00:00 AM, [address] [place] [address], Suite [facility], [place], [place], [phone], Provider Name:Blue garrido, 07/16/2025 08:00:00 AM, [address] [place] [address], [address], [place], [place], [phone], Progress Notes * Mahin AMBROCIO GDOB:[birth year] (69 yo M)Acc No.[id number]:01/02/2025 Progress Note Patient: Mahin LAWRENCE Provider: Madan Acosta MD :1955 A ge:69 Y S ex:Male Date:01/02/2025 Address:[address] [place], [place] [phone] Subjective: * Chief Complaints: * 1 . [...] MD Date: 0 01/02/2025 Generated for Navjot mccall/Janay/Tanoitting on: 0 07/06/2025 01:47 PM EDT
--- OUTSIDE RECORDS SUMMARY | 2025-01-08 16:26 | XMS_ITS ---
Author Organization Blue Acosta MD Address 10 [facility] [address] [place] [address] [phone] Care Team Providers Care Mounter Name Role Phone Blue Acosta Primary Care Provider REASON FOR VISIT ER Encounters Encounter Location Date Provider Diagnosis Blue Acosta MD [address] [place] [address] [place] [address] [phone] 01/08/2025 Blue Acosta Plan Of Treatment Next Appt Details Provider Name:Blue Arechiga ier, 07/10/2025 07:00:00 AM, [address] [place] [address], Suite [facility], [place], [place], [phone], Provider Name:Blue Arechiga ier, 07/16/2025 08:00:00 AM, [address] [place] [address], Suite [facility], [place], [place], [phone], Progress Notes * Mahin AMBROCIO GDOB:[birth year] (69 yo M)Acc No.[id number]:01/08/2025 Patient: Mahin LAWRENCE :1955 A ge:69 Y S ex:Male Address:[address] [place] [id number] * true * Date: Generated for Printi ng/Faxing/eTransmitting on: 0 07/06/2025 01:47 PM EDT
--- OUTSIDE RECORDS SUMMARY | 2025-01-09 05:15 | XMS_ITS ---
Author Organization Blue Acosta MD Address [address] [place], [place] [phone] Care Team Providers Care Linux Admin Engineer Name Role Phone Blue Acosta Primary [...] kg/m2 01/09/2025 weight is down 6 pounds [facility] e 07-10-24 Encounters Encounter Location Date Provider Diagnosis Blue Acosta MD [address] [place] [address] [address] [place], [place] [phone] 01/09/2025 Blue Acosta Pleural effusion J90 ; [...] testing, THE ORDER HAS BEEN FAXED TO [facility] FOR SCHEDULING 01/09/2025 Foot drop, left (ICD-10 [...] testing, THE ORDER HAS BEEN FAXED TO [email or web address] FOR SCHEDULING Foot drop, left pending diagnostic t esting Prediabetes stable, no need for medication at this time, will contiue to monitor Mixed hyperlipidemia stable, will contin ue current regiment Pending Test Test Name Order Date MRI LUMBAR SPINE NO CONTRAST 01/09/2025 XR CHEST 2 VIEW PA & LAT 01/09/2025 Next Appt Details Provider Name:Blue Arechiga ier, 07/10/2025 07:00:00 AM, [address] [place] [address], [address], [place], [place], [phone], Provider Name:Blue Arechiga ier, 07/16/2025 08:00:00 AM, [address] [facility], [address], [place], [place], [phone], Progress Notes * AMBORCIOKyrie CHEUNG GDOB:[birth year] (69 yo M)Acc No.[id number]:01/09/2025 Progress Notes Patient: Kyrie LAWRENCE Provider: Madan Acosta MD :1955 A ge:69 Y S ex:Male Date:01/09/2025 Address:[address] [place], [place] [phone] Subjective: * Chief Complaints: * 6 MO [...] testing, THE ORDER HAS BEEN FAXED TO [facility] FOR SCHEDULING 3. F oot drop, left [...] 01/09/2025 Generated for Navjot mccall/Janay/eTransmitting on: 0 07/06/2025 01:47 PM EDT History and Physical Notes * [...]
--- OUTSIDE RECORDS SUMMARY | 2025-01-12 04:57 | XMS_ITS ---
Author Organization Blue Acosta MD Address 10 [facility] [address] [place] [address] [phone] Care Team Providers Care Fire Extinguisher Tester Name Role Phone Blue Acosta Primary Care Provider [phone] REASON FOR VISIT MRI order Encounters Encounter Location Date Provider Diagnosis Blue Acosta MD [address] [place] [address] [place] [address] [phone] 01/12/2025 Blue Acosta Plan Of Treatment Next Appt Details Provider Name:Blue Arechiga ier, 07/10/2025 07:00:00 AM, [address] [place] [address], [address] [place] [address], [phone], Provider Name:Blue Arechiga ier, 07/16/2025 08:00:00 AM, [address] [place] [address], [address] [place] [address], [phone], Progress Notes * Mahin AMBROCIO GDOB:[birth year] (69 yo M)Acc No.[id number]:01/12/2025 Patient: Mahin LAWRENCE :1955 A ge:69 Y S ex:Male Address:[address] [place] [id number] * true * Date: Generated for Printi ng/Faxing/eTransmitting on: 0 07/06/2025 01:48 PM EDT
--- OUTSIDE RECORDS SUMMARY | 2025-01-13 10:52 | XMS_ITS ---
Author Organization Blue Acosta MD Address [address] [place] [address] [place] [phone] Care Team Providers Care Customer Trainer Name Role Phone Blue Acosta Primary Care Provider REASON FOR VISIT Repeat CXR Encounters Encounter Location Date Provider Diagnosis Blue Acosta MD [address] [place] [phone] 01/13/2025 Blue Acosta Pleural effusion J90 Assessments [...] Details Provider Name:Blue garrido, 07/10/2025 07:00:00 AM, [address] [place] [address], [address], [phone], Provider Name:Blue garrido, 07/16/2025 08:00:00 AM, [address] [place] [address], [address], [phone], Progress Notes * Mahin AMBROCIO GDOB:[birth year] (69 yo M)Acc No.[id number]:01/13/2025 Patient: Mahin LAWRENCE :1955 A ge:69 Y S ex:Male Address:[address] [place] [address] Subjective: * Chief Complaints: * R epeat CXR * Medical History: * Surgical History: * Hospitalization/Major Diagno stic Procedure: * Medications: Objective: * Vitals: * Physical Examination: Assessment: * Assessment: 1. P leural effusion - J90 Plan: * Treatment: * Procedure Codes: * true * Date: Generated for Navjot mccall/Janay/Dietersmitting on: 0 07/06/2025 01:47 PM EDT
--- OUTSIDE RECORDS SUMMARY | 2025-03-20 05:30 | XMS_ITS ---
Author Organization [facility] Address [address] [place] [address] Care Team Providers Care Edger Machine Helper Name Role Phone Blue Acosta MD Primary Care Provider Corby Michel [phone] REASON FOR VISIT screening Encounters Encounter Location Date Provider Diagnosis [facility] [place] [address] [place] [id number] 03/20/2025 Corby Sanchez Plan Of Treatment No Information Progress Notes * JORGE KYRIE GDOB:[birth year] (69 yo M)Acc No.[id number]:03/20/2025 COLON WITH MAC Patient: KYRIE LAWRENCE Provider: Del Sanchez MD :1955 A ge:69 Y S ex:Male Date:03/20/2025 Address:[address] [place], [place] [phone] Pcp:Blue Acosta MD Subjective: * Chief Complaints: [...] 03/20/2025 Generated for Printi ng/Faxing/eTransmitting on: 0 07/06/2025 01:46 PM EDT
--- OUTSIDE RECORDS SUMMARY | 2025-03-30 09:10 | XMS_ITS ---
Author Organization [facility] Address [address] [place] [phone] Care Team Providers Care Log Rider Name Role Phone Blue Acosta MD Primary Care Provider Corby Michel [phone] Encounters Encounter Location Date Provider Diagnosis [facility] Out[place] [address] [place] [phone] 03/30/2025 Corby Sanchez Colon cancer scree ascencion [...] KYRIE JORGE GDOB:[birth year] (69 yo M)Acc No.[id number]:03/30/2025 COLON WITH MAC Patient: Yanick COLEMANPEYMAN KYRIE G Provider: Del Sanchez MD :1955 A ge:69 Y S ex:Male Date:03/30/2025 Address:[address] [place], [place] [phone] Pcp:Blue Acosta MD Subjective: * Chief Complaints: [...] 03/30/2025 Generated for Navjot mccall/Janay/Tanoitting on: 0 07/06/2025 01:48 PM EDT
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
--- OUTSIDE RECORDS SUMMARY | 2025-07-06 13:48 | XMS_ITS | Patient Health Record ---
Author Organization [facility] hallie Worthington Address [address] [place] [address] Care Team Providers Care Software Project Lead Name Role Phone Blue Acosta MD Primary Care Provider Milli Jimenez Unavailable [phone] Allergies Allergen (clinical drug ingredient) Drug/Non Drug [...] W/U Status Risk Notes Problem Tinea unguium (268663707) Tinea unguium (B35.1) Active confirmed Problem Acquired hammer toe of left foot (8753646886118362 ) Other hammer toe(s) (acquired), left foot (M20.42) Active confirmed Problem Localized, primary osteoarthritis of the ankle and/or foot (133990450) Arthritis of joint of lesser toe, left [...] X ray : Foot, left 3V 05/06/2024 34344-VQQMPDT NAIL, 1-5 08/17/2023 53540-FCILLSY NAIL, 1-5 03/31/2016 84895- Debride <25 sq cm 09/02/2013 00380- Debride <25 sq cm 08/17/2023 59627-DUEFZRJ SKIN/TISSUE 07/07/2013 76439-ZIUNNDJ SKIN/TISSUE 07/22/2013 79437-KWSJHAR SKIN/TISSUE 08/12/2013 Insurance Providers Payer Name Payer Address Payer Phone Subscriber Number Group Number Insured Name Patient Relationship to Insured Coverage Start Date Coverage End Date [employer] [address] [facility] [place] [address] [id number] Mahin Ha Self - patient is the insured [facility] [address] [place] [address] [id number] Mahin Ha Self - patient is [...]
--- OUTSIDE RECORDS SUMMARY | 2025-07-06 13:48 | XMS_ITS | Patient Health Record ---
Author Organization Blue Acosta MD Address [address] [place], [place] [phone] Care Team Providers Care Processing Engineer Name Role Phone Blue Acosta Primary Care Provider Allergies Allergen (clinical drug ingredient) Drug/Non Drug Allergy documented on EMR Reaction Allergy Type Onset Date Status zolpidem ambien (uncoded) hallucinations Allergy Active amoxil (uncoded) rash Allergy Act dick Results Component Value Reference Range Notes Liver Panel Reviewed date:01/02/2025 12:30:46 PM Interpretation: Performing Lab:[facility], [address] [place] [address] Notes/Report: Bilirubin Total 0.6 0.0-1.0 mg/dL Bilirubin Direct 0.3 0.0-0.5 mg/dL Aspartate Amino Transferase 29 5-37 U/L Alanine Aminotransferase 22 0-40 U/L Total Protein 7.6 6.5-8.0 g/dL Albumin Level 3.9 3.5-5.0 g/dL Alkaline Phosphatase 80 39-117 U/L Glucose Fasting Reviewed date:01/02/2025 12:30:54 PM Interpretation: Performing Lab:[facility], [address] [place] [phone] Notes/Report: Glucose Fasting 118 60-99 mg/dL A fasting glucose from 100-125 mg/dl is considered impaired (pre-diabetes). Lipid Panel with Reflex Reviewed date:01/02/2025 12:31:05 PM Interpretation: Performing Lab:[facility], [address] [place] [phone] Notes/Report: Triglycerides 118 <150 mg/dL Desirable Triglyceride: [...] A1c Reviewed date:01/03/2025 06:16:13 PM Interpretation: Performing Lab:[address] [address] Notes/Report: Hemoglobin A1c % 5.6 <6.0 % [...] average glucose, using the formula of the Y2D-Acylgrh Average Glucose study (ADAG), Diabetes Care, Vol.31,#8, May. 2007 Johnie Milner Reviewed date:01/02/2025 12:23:00 PM Interpretation: Performing Lab:[facility], [address] [place] [phone] Notes/Report: Johnie Milner See Note Specimen held untested for 24 hours; Call to request Chemistry testing. Complete Blood Count Auto Di ff Reviewed date:01/06/2025 08:02:47 PM Interpretation: Performing Lab:[facility], [address] [place] [phone] Notes/Report: White Blood Count 12.8 4.8-10.8 X10*3/uL [...] Panel Reviewed date:01/06/2025 08:04:15 PM Interpretation: Performing Lab:[facility], [address] [place] [phone] Notes/Report: Sodium 140 135-145 mmol/L Potassium 4.1 [...] Magnesium Reviewed date:01/06/2025 07:58:26 PM Interpretation: Performing Lab:[address] [address] Notes/Report: Magnesium 1.8 1.6-2.6 mg/dL Lipase Reviewed date:01/06/2025 07:58:34 PM Interpretation: Performing Lab:[facility], [address] [place] [phone] Notes/Report: Lipase 23 8-78 U/L CT NG by PCR Reviewed date:01/07/2025 02:59:49 PM Interpretation: Performing Lab:[address] [address] Notes/Report: Urine CT PCR NOT DETECTED Not [...] Cult Reviewed date:01/08/2025 04:41:34 PM Interpretation: Performing Lab:[facility], [address] [place] [address] Notes/Report: Urine, Clean Catch Color Urine Yellow Appearance Urine Clear PH 5.5 5.0-9.0 Glucose Urine UA Negative Negative mg/dL Urine Blood Negative Negative Specific Amity - Urine 1.015 1.005-1.025 Urine Protein Negative Neg-Trace mg/dL Urine Ketones Negative Negative mg/dL Nitrite Urine Negative Negative Leukocyte Esterase Urine Negative Negative CT abdomen pelvis wo con Reviewed date:01/06/2025 08:03:52 PM Interpretation: Performing Lab: Notes/Report: [address] [address] [address] Scan Report Signed Patient: Mahin Ambrocio MR#: [id number] 045 : 1955 Acct:[id number] Age/Sex: 69 / M ADM Date: 01/06/25 Loc: HO.ED Attending Dr: Ordering Physician: Cristina Birmingham Date of Service: 01/06/25 Procedure(s): CT abdomen pelvis wo IV con Accession Number(s): [id number] cc: Blue Acosta MD; Cristina Birmingham Report Number: [id number]: Total DLP = 1401.00 mGy-cm EXAMINATION: CT [...] 01/06/25 1414 DD/ 1310 TD/TT: 01/06/25 1402 Denture Model Maker: [address] [address] [address] Scan Report Signed Patient: Ziyad Ambrocio in G MR#: [id number] 045 : 1955 Acct:[id number] Age/Sex: 69 / M ADM Date: 01/06/25 Loc: HO.ED Attending Dr: Ordering Physician: Cristina Birmingham Date of Service: 01/06/25 Procedure(s): CT abd omen pelvis wo IV con Accession Number(s): [id number] cc: Blue Acosta MD; Cristina Birmingham Report Number: [id number]: Total DLP = 1401.00 mGy-cm EXAMINATION: CT [...] 01/06/25 1414 DD/ 1310 TD/TT: 01/06/25 1402 Denture Model Maker: US scrotum Reviewed date:01/07/2025 03:00:25 PM Interpretation: Performing Lab: Notes/Report: [address] [address] Ultrasound Report Signed Patient: Mahin Ambrocio MR#: [id number] 045 : 1955 Acct:[id number] Age/Sex: 69 / M ADM Date: 01/06/25 Loc: HO.ED Attending Dr: Ordering Physician: Omid Lopez MD Date of Service: 01/06/25 Procedure(s): US scrotum Accession Number(s): [id number] cc: Blue Acosta MD; Omid Lopez MD CLINICAL HISTORY: L testicular pain. Ultrasound scrotum. COMPARISON: None Technique: Real time sonographic imaging, including color-flow imaging, was performed by the tank car inspector. Multiple sales and service representative static images were saved for review. [...] OV> 01/07/25 0804 DD/ 15 TD/TT: 01/06/251815 Denture Model Maker: [place] [address] Ultrasound Report Signed Patient: Ziyad Ambrocio MR#: [id number] 045 : 1955 Acct:[id number] Age/Sex: 69 / M ADM Date: 01/06/25 Loc: HO.ED Attending Dr: Ordering Physician: Omid Lopez MD Date of Service: 01/06/25 Procedure(s): US scrotum Accession Number(s): [id number] cc: Blue Acosta MD; Omid Lopez MD CLINICAL HISTORY: L testicular pain. Ultrasound scrotum. COMPARISON: None Technique: Real time sonographic imaging, including color-flow imaging, was performed by the tank car inspector. Multiple sales and service representative static images were saved for review. [...] OV> 01/07/25 0804 DD/ 15 TD/TT: 01/06/251815 Denture Model Maker: US scrotum doppler Reviewed date:01/06/2025 08:04:52 PM Interpretation: Performing Lab: Notes/Report: [place] [address] Ultrasound Report Signed Patient: Mahin Ambrocio MR#: [id number] 045 : 1955 Acct:[id number] Age/Sex: 69 / M ADM Date: 01/06/25 Loc: HO.ED Attending Dr: Ordering Physician: Louise Callejas Date of Service: 01/06/25 Procedure(s): US scrotum doppler Accession Number(s): [id number] cc: Blue Acosta MD; Louise Callejas CLINICAL HISTORY: L testicular pain. Ultrasound scrotum. COMPARISON: None Technique: Real time sonographic imaging, including color-flow imaging, was performed by the tank car inspector. Multiple sales and service representative static images were saved for review. [...] in OV> 01/06/251815 DD/ 15 TD/TT: 01/06/251815 Denture Model Maker: [place] [address] Ultrasound Report Signed Patient: Ziyad Ambrocio in G MR#: [id number] 045 : 1955 Acct:[id number] Age/Sex: 69 / M ADM Date: 01/06/25 Loc: HO.ED Attending Dr: Ordering Physician: Louise Callejas Date of Service: 01/06/25 Procedure(s): US scr otum doppler Accession Number(s): [id number] cc: Blue Acosta MD; Louise Callejas CLINICAL HISTORY: L testicular pain. Ultrasound scrotum. COMPARISON: None Technique: Real time sonographic imaging, including color-flow imaging, was performed by the tank car inspector. Multiple sales and service representative static images were saved for review. [...] in OV> 01/06/251815 DD/ 15 TD/TT: 01/06/251815 Denture Model Maker: XR chest 2V Reviewed date:01/13/2025 02:56:25 PM Interpretation: Performing Lab: Notes/Report: [address] [address] XRay Report Signed Patient: Mahin Ambrocio MR#: [id number] 045 : 1955 Acct:[id number] Age/Sex: 69 / M ADM Date: 01/09/25 Loc: HO.XRAY Attending Dr: Blue Acosta MD Ordering Physician: Blue Acosta MD Date of Service: 01/09/25 Procedure(s): XR chest 2V Accession Number(s): [id number] cc: Blue Acosta MD EXAMINATION: XR CHEST [...] 01/09/25 1059 DD/ 1000 TD/TT: 01/09/25 1010 Denture Model Maker: [address] [address] XRay Report Signed Patient: Ziyad Ambrocio MR#: [id number] 045 : 1955 Acct:[id number] Age/Sex: 69 / M ADM Date: 01/09/25 Loc: HO.XRAY Attending Dr: Blue Acosta MD Ordering Physician: Blue Acosta MD Date of Service: 01/09/25 Procedure(s): XR isaias st 2V Accession Number(s): [id number] cc: Blue Acosta MD EXAMINATION: XR CHEST [...] 01/09/25 1059 DD/ 1000 TD/TT: 01/09/25 1010 Denture Model Maker: MR abdomen wo/w con Reviewed date:02/17/2025 04:48:05 PM Interpretation: Performing Lab: Notes/Report: [address] [address] Magnetic Resonance Report Signed Patient: Mahin Ambrocio MR#: [id number] 045 : 1955 Acct:[id number] Age/Sex: 69 / M ADM Date: 02/16/25 Loc: HO.MRI Attending Dr: Jamey Rojas MD Ordering Physician: Jamey Rojas MD Date of Service: 02/16/25 Procedure(s): MR abdomen wo/w con Accession Number(s): [id number] cc: Blue Acosta MD; Jamey Rojas MD [...] 02/17/25 1311 DD/ 1309 TD/TT: 02/17/25 1309 Denture Model Maker: [place] [address] Magnetic Resonance Report Signed Patient: Ziyad Ambrocio MR#: [id number] 045 : 1955 Acct:[id number] Age/Sex: 69 / M ADM Date: 02/16/25 Loc: HO.MRI Attending Dr: Jamey Rojas MD Ordering Physician: Jamey Rojas MD Date of Service: 02/16/25 Procedure(s): MR abd omen wo/w con Accession Number(s): [id number] cc: Blue Acosta MD; Jamey Rojas MD [...] 02/17/25 1311 DD/ 1309 TD/TT: 02/17/25 1309 Denture Model Maker: XR lumbar spine 4V min Reviewed date:02/23/2025 12:34:44 PM Interpretation: Performing Lab: Notes/Report: [facility] [address] [place] [address] XRay Report Signed Patient: Mahin Ambrocio MR#: [id number] 045 : 1955 Acct:[id number] Age/Sex: 69 / M ADM Date: 02/20/25 Loc: HO.HOSX Attending Dr: Simon Solano MD, PhD Ordering Physician: Simon Solano MD, PhD Date of Service: 02/20/25 Procedure(s): XR lumbar spine 4V min Accession Number(s): [id number] cc: Blue Acosta MD; Simon Solano MD, [...] in OV> 02/23/25822 DD/ 1 TD/TT: 02/23/25821 Denture Model Maker: [facility] [address] [place] [address] XRay Report Signed Patient: Ziyad Ambrocio MR#: [id number] 045 : 1955 Acct:[id number] Age/Sex: 69 / M ADM Date: 02/20/25 Loc: HO.HOSX Attending Dr: Richard Solano MD, PhD Ordering Physician: Simon Solano MD, PhD Date of Service: 02/20/25 Procedure(s): XR lum bar spine 4V min Accession Number(s): [id number] cc: Blue Acosta MD; Simon Solano MD, [...] in OV> 02/23/25822 DD/ 1 TD/TT: 02/23/25821 Denture Model Maker: bladder Reviewed date:05/28/2025 12:37:23 PM Interpretation: Performing Lab: Notes/Report: [facility] [address] [place] [address] [place] [address] Ultrasound Report Signed Patient: Mahin Ambrocio MR#: [id number] 045 : 1955 Acct:[id number] Age/Sex: 69 / M ADM Date: 05/28/25 Loc: HO.HMGCX Attending Dr: Don Aj MD Ordering Physician: Don Aj MD Date of Service: 05/28/25 Procedure(s): US bladder Accession Number(s): [id number] cc: Don Aj MD; Blue Acosta MD [...] signed by Seb Bang MD in OV> 05/28/2547 DD/ 5 TD/TT: 05/28/25945 Denture Model Maker: [facility] [address] [place] [address] [place] [address] Ultrasound Report Signed Patient: Ziyad Ambrocio MR#: [id number] 045 : 1955 Acct:[id number] Age/Sex: 69 / M ADM Date: 05/28/25 Loc: HO.HMGCX Attending Dr: Joselin Bach MD Ordering Physician: Don Aj MD Date of Service: 05/28/25 Procedure(s): US bladder Accession Number(s): [id number] cc: Don Aj MD; Blue Acosta MD [...] in OV> 05/28/25946 DD/ 5 TD/TT: 05/28/25945 Denture Model Maker: Reason For Referral No Information Medications [...] Administered pt was given the vaccine at [facility] on [facility]. Fluarix Quadrivalent IM Intramuscular 06/24/2018 [...] Problem Status W/U Status Risk Notes Problem 921186569 Diverticulitis (K57.92) Active confirmed Problem 823483617 Mixed hyperlipidemia (E78.2) Active confirmed Problem 375795987 Paroxysmal atria l fibrillation (I48.0) Active confirmed Problem 99303228 Atherosclerosis of aorta (I70.0) Active confirmed Problem 80172206898702032 Acute recurren t frontal sinusitis (J01.11) Active confirmed Problem 051576150 Angina effort (I20.8) Active confirmed Problem 545499202 Lumbar disc disease (M51.9) Active confirmed Problem 033324636 Tubular adenoma of colon (D12.6) Active confirmed Problem 97602404 Essential hypertension (I10) Active confirmed Problem 7716010 Prediabetes (R73.09) Active confirmed Problem 660083526 Morbid obesity d ue to excess calories (E66.01) Active confirmed Problem 188291710 Cervical disc disease (M50.90) Active confirmed Problem 347386577 Hammertoe of lef t foot (M20.42) Active [...] Diagnosis Blue Acosta MD [address] [place] [id number] 01/02/2025 Blue Acosta Mixed hyperlipidemia E78.2 and Prediabetes R73.09 Blue Acosta MD [address] [place] [address] [address] [place] [id number] 07/10/2024 Blue Acosta Essential hypertensi on I10 ; Prediabetes R73.09 ; Morbid obesity due to excess calories E66.01 ; Guaiac positive stools R19.5 ; Mixed hyperlipidemia E78.2 ; Colon cancer screening Z12.11 ; Depression screening Z13.31 and Paroxysmal atrial fibrillation I48.0 Blue Acosta MD [address] [place] [id number] 01/09/2025 Blue Acosta Pleural effusion J90 ; Lumbar disc disease with radiculopathy M51.16 ; Foot drop, left M21.372 ; Prediabetes R73.09 and Mixed hyperlipidemia E78.2 Blue Acosta MD [address] [place] [id number] 01/08/2025 Blue Acosta MD [address] [place] [id number] 01/12/2025 Blue Acosta MD [address] [place] [id number] 01/13/2025 Blue Puriardiladonna Pleural effusion J90 Assessments Encounter Date Diagnosis (ICD Code) Assessment Notes Treatment Notes Treatment Clinical Notes Section Notes 01/02/2025 Mixed hyperlipidemia (ICD-10 - E78.2) 07/10/2024 [...] into the future order folder for . 01/02/2025 Prediabetes (ICD-10 - R73.09) 07/10/2024 Morbid obesity due to excess calories (ICD-10 - E66.01) hopefully get on diet 01/09/2025 Foot drop, left (ICD-10 - M21.372) pending diagnostic testing 07/10/2024 Guaiac positive stools (ICD-10 - R19.5) [...] Name:Blue Arechiga ier, 07/10/2025 07:00:00 AM, [address] [place] [address], [address], [phone], Provider Name:Blue Arechiga ier, 07/16/2025 08:00:00 AM, [address] [place] [address], [place] [address], [place], [place], [phone], Insurance Providers Payer Name Payer Address Payer Phone Subscriber Number Group Number Insured Name Patient Relationship to Insured Coverage Start Date Coverage End Date [employer] [address] [place] [address] [id number] Mahin Ambrocio Self - patient is the insured [facility] [address] [place] [address] [id number] Mahin Ambrocio Self - patient is the insured Medical (General) History Medical History History ICD Code colonoscopy 04/2012 for recta l bleeding due in 10 years; Colonoscopy done 10/27/[address] Sanchez - repeat 5 years. 03/30/25 colonoscopy - Daniel repeat 5y
== END 2025-07-06 11:31 | disposition home or self-care (01) ==
LOC: HO.HMGAL 11:07
PROVIDERS: PCP Internal Medicine; Visit Provider Registered Nurse Emergency
DX: J30.89 Other allergic rhinitis (principal)
CPT/HCPCS: 95117; 95165

== ENCOUNTER 2025-07-10 10:22 | Outpatient (REF) | payer MEDICARE, OTHER, SELFPAY ==
--- OUTSIDE RECORDS SUMMARY | 2024-04-23 06:00 | XMS_ITS ---
Author Organization [facility] Address [address] [facility] [place] [address] Care Team Providers Care Division Controller Name Role Phone Karla PAZ, Blue Primary Care Provider UnaMilli Barrett Unavailable [phone] Encounters Encounter Location Date Provider Diagnosis Surgery [facility] ([facility]) [address] [place] [phone] 04/23/2024 Milli Yost Plan Of Treatment No Information Progress Notes * Mahin JORGE GDOB:[birth year] (69 yo M)Acc No.[id number]:04/23/2024 Patient: Mahin LAWRENCE Provider: Harjit Yost DPM [...] 04/23/2024 Generated for Printi ng/Faxing/eTransmitting on: 0 07/10/2025 11:47 AM EDT
--- OUTSIDE RECORDS SUMMARY | 2025-01-08 16:26 | XMS_ITS ---
Author Organization Blue Acosta MD Address [address] [place] [address] [phone] Care Team Providers Care Brine Process Operator Name Role Phone Bleu Acosta Primary Care Provider REASON FOR VISIT ER Encounters Encounter Location Date Provider Diagnosis Blue Acosta MD 10 [facility] [address] [place] [address] [phone] 01/08/2025 Blue Acosta Plan Of Treatment Next Appt Details Provider Name:Blue Arechiga ier, 07/16/2025 08:00:00 AM, [facility], Suite [facility], [place], [place], [phone], Progress Notes * Mahin AMBROCIO GDOB:[birth year] (69 yo M)Acc No.[id number]:01/08/2025 Patient: Yanick Mahin LANIER :1955 A ge:69 Y S ex:Male Address:[address] [place] [id number] * true * Date: Generated for Printi ng/Faxing/eTransmitting on: 0 07/10/2025 11:48 AM EDT
--- OUTSIDE RECORDS SUMMARY | 2025-01-09 05:15 | XMS_ITS ---
Author Organization Blue Acosta MD Address [address] [place], [place] [phone] Care Team Providers Care Leak Detection Engineer Name Role Phone Blue Acosta Primary Care Provider [phone] Allergies Allergen (clinical drug ingredient) Drug/Non Drug [...] kg/m2 01/09/2025 weight is down 6 pounds [facility] e 07-10-24 Encounters Encounter Location Date Provider Diagnosis Blue Acosta MD [address] [place] [address] [address] [place], [place] [phone] 01/09/2025 Blue Acosta Pleural effusion J90 ; [...] testing, THE ORDER HAS BEEN FAXED TO [facility] FOR SCHEDULING 01/09/2025 Foot drop, left (ICD-10 [...] testing, THE ORDER HAS BEEN FAXED TO [facility] FOR SCHEDULING Foot drop, left pending diagnostic t esting Prediabetes stable, no need for medication at this time, will contiue to monitor Mixed hyperlipidemia stable, will contin ue current regiment Pending Test Test Name Order Date MRI LUMBAR SPINE NO CONTRAST 01/09/2025 XR CHEST 2 VIEW PA & LAT 01/09/2025 Next Appt Details Provider Name:Blue Arechiga ier, 07/16/2025 08:00:00 AM, [address] [place] [address], [address], [place], [place], [phone], Progress Notes * AMBROCIOKyrie CHEUNG GDOB:[birth year] (69 yo M)Acc No.[id number]:01/09/2025 Progress Notes Patient: Kyrie LAWRENCE Provider: Madan Acosta MD :1955 A ge:69 Y S ex:Male Date:01/09/2025 Address:[address] [place], [place] [phone] Subjective: * Chief Complaints: * 6 MO [...] testing, THE ORDER HAS BEEN FAXED TO [facility] FOR SCHEDULING 3. F oot [...] 01/09/2025 Generated for Navjot mccall/Janay/eTransmitting on: 0 07/10/2025 11:47 AM EDT History and Physical Notes * [...]
--- OUTSIDE RECORDS SUMMARY | 2025-01-12 04:57 | XMS_ITS ---
Author Organization Blue Acosta MD Address [address] [facility] [address] [place] [address] [phone] Care Team Providers Care Credit Representative Name Role Phone Blue Acosta Primary Care Provider REASON FOR VISIT MRI order Encounters Encounter Location Date Provider Diagnosis Blue Acosta MD 10 [facility] [address] [place] [address] [phone] 01/12/2025 Blue Acosta Plan Of Treatment Next Appt Details Provider Name:Blue Arechiga ier, 07/16/2025 08:00:00 AM, 10 [facility], Suite [facility], [place], [place], [phone], Progress Notes * Mahin AMBROCIO GDOB:[birth year] (69 yo M)Acc No.[id number]:01/12/2025 Patient: Yanick Mahin LANIER :1955 A ge:69 Y S ex:Male Address:[address] [place] [phone] * true * Date: Generated for Printi ng/Faxing/eTransmitting on: 0 07/10/2025 11:48 AM EDT
--- OUTSIDE RECORDS SUMMARY | 2025-01-13 10:52 | XMS_ITS ---
Author Organization Blue Acosta MD Address [address] [place] [address] [place] [phone] Care Team Providers Care Manager Labor Delivery Name Role Phone Blue Acosta Primary Care Provider REASON FOR VISIT Repeat CXR Encounters Encounter Location Date Provider Diagnosis Blue Acosta MD [address] [place] [address] [place] [phone] 01/13/2025 Blue Acosta Pleural effusion J90 Assessments [...] 2V 01/13/2025 Next Appt Details Provider Name:Blue Arechiga ier, 07/16/2025 08:00:00 AM, [address] [place] [address], Suite [facility], [place], [place], [phone], Progress Notes * Maihn AMBROCIO GDOB:[birth year] (69 yo M)Acc No.[id number]:01/13/2025 Patient: Yanick Mahin LANIER :1955 A ge:69 Y S ex:Male Address:[address] [place] [address] Subjective: * Chief Complaints: * R epeat CXR * Medical History: * Surgical History: * Hospitalization/Major Diagno stic Procedure: * Medications: Objective: * Vitals: * Physical Examination: Assessment: * Assessment: 1. P leural effusion - J90 Plan: * Treatment: * Procedure Codes: * true * Date: Generated for Navjot mccall/Janay/Kristy on: 0 07/10/2025 11:47 AM EDT
--- OUTSIDE RECORDS SUMMARY | 2025-03-20 05:30 | XMS_ITS ---
Author Organization [facility] Address [address] [place] [address] Care Team Providers Care Bridge Repair Crew Person Name Role Phone Blue Acosta MD Primary Care Provider Corby Michel [phone] REASON FOR VISIT screening Encounters Encounter Location Date Provider Diagnosis [facility] [place] [address] [place] [id number] 03/20/2025 Corby Sanchez Plan Of Treatment No Information Progress Notes * JORGE KYRIE GDOB:[birth year] (69 yo M)Acc No.[id number]:03/20/2025 COLON WITH MAC Patient: KYRIE LAWRENCE Provider: Del Sanchez MD :1955 A ge:69 Y S ex:Male Date:03/20/2025 Address:[address] [place], [place] [phone] Pcp:Blue Acosta MD Subjective: * Chief Complaints: [...] 03/20/2025 Generated for Printi ng/Faxing/eTransmitting on: 0 07/10/2025 11:47 AM EDT
--- OUTSIDE RECORDS SUMMARY | 2025-03-30 09:10 | XMS_ITS ---
Author Organization [facility] Address [address] [place] [phone] Care Team Providers Care Physician Name Role Phone Blue Acosta MD Primary Care Provider Corby Michel [phone] Encounters Encounter Location Date Provider Diagnosis [facility] [place] [address] [place] [phone] 03/30/2025 Corby Sanchez Colon cancer scree ascencion [...] KYRIE JORGE GDOB:[birth year] (69 yo M)Acc No.[id number]:03/30/2025 COLON WITH MAC Patient: Yanick COLEMANPEYMAN KYRIE G Provider: Del Sanchez MD :1955 A ge:69 Y S ex:Male Date:03/30/2025 Address:[address] [place], [place] [phone] Pcp:Blue Acosta MD Subjective: * Chief Complaints: [...] 03/30/2025 Generated for Navjot mccall/Janay/Tanoitting on: 0 07/10/2025 11:48 AM EDT
--- OUTSIDE RECORDS SUMMARY | 2025-07-10 03:00 | XMS_ITS ---
Author Organization Blue Acosta MD Address [address] [place], [place] [id number] Care Team Providers Care Exchange Operator Name Role Phone Blue Acosta Primary Care Provider [phone] Results Component Value Reference Range Notes Complete Blood Count Auto Di ff (Not yet reviewed by provider) Interpretation: Performing Lab:[facility], [address] [place] [phone] Notes/Report: White Blood Count 10.2 4.8-10.8 X10*3/uL [...] Abs Auto 0.000 0.0-0.012 X10*3/uL Lipid Panel (Not yet reviewe d by provider) Interpretation: Performing Lab:[address] [phone] Notes/Report: Triglycerides 98 <150 mg/dL Desirable Triglyceride: [...] in patients with liver disease. PSA,Total (Free>4and<10) (No t yet reviewed by provider) Interpretation: Performing Lab:[facility], [address] [place] [phone] Notes/Report: PSA,Total (Free>4and<10) 0.26 0.00-4.00 ng/mL A [...] i Chemiluminescent Microparticle Immunoassay (CMIA) Hemoglobin A1c (Not yet revi ewed by provider) Interpretation: Performing Lab:[facility], [address] [place] [address], [place] [phone] Notes/Report: Hemoglobin A1c % 6.1 <6.0 % [...] average glucose, using the formula of the H2L-Bhwleiw Average Glucose study (ADAG), Diabetes Care, Vol.31,#8, May. 2007 REASON FOR VISIT FASTING LABS Immunizations Vaccine Route Administration Date Status Comme nts Influenza High Dose IM Intramuscular 07/10/2025 Administer ed Encounters Encounter Location Date Provider Diagnosis Blue Acosta MD [address] [place] [address] [place] [phone] 07/10/2025 Blue Acosta Mixed hyperlipidemia E78.2 ; Essential hypertension I10 ; Prediabetes R73.09 and Encounter for administration of vaccine Z23 Assessments Encounter Date Diagnosis (ICD Code) Assessment Notes Treatment Notes Treatment Clinical Notes Section Notes 07/10/2025 Mixed hyperlipidemia (ICD-10 - E78.2) 07/10/2025 Essential hypertension (ICD-10 - I10) 07/10/2025 Prediabetes (ICD-10 - R73.09) 07/10/2025 Encounter for administration of vaccine (ICD-10 - Z23) Plan Of Treatment Pending Test Test Name Order Date Complete Blood Count Auto Diff 5 Comprehensive [place]. Panel Fast 5 Lipid Panel 07/10/2025 PSA,Total (Free>4and<10) 07/10/2025 Microalbumin, Random 07/10/2025 Hemoglobin A1c 07/10/2025 UA ClnCatch+Micro w/rflx Cult 07/10/2025 Next Appt Details Provider Name:Blue Arechiga ier, 07/16/2025 08:00:00 AM, [address] [place] [address], [address], [place], [place], [phone], Progress Notes * Mahin AMBROCIO GDOB:[birth year] (69 yo M)Acc No.[id number]:07/10/2025 Progress Note Patient: Mahin LAWRENCE Provider: Madan Acosta MD :1955 A ge:69 Y S ex:Male Date:07/10/2025 Address:[address] [place], [place] [id number] Subjective: * Chief Complaints: * 1 . FASTING LABS. * Medical History: Objective: * Vitals: Assessment: * Assessment: 1. M ixed hyperlipidemia - E78.2 (Primary) 2 . E ssential hypertension - I10 3 . P rediabetes - R73.09 4 . E ncounter for administration of vaccine - Z23 Plan: * Treatment: 2. E ssential hypertension L AB: Complete Blood Count Auto Diff (Collection Date & Time - 07/10/2025 07:00 AM) L AB: Comprehensive [place]. Panel Fast L AB: Lipid Panel (Collection Date & Time - 07/10/2025 07:00 AM) L AB: PSA,Total (Free>4and<10) (Collection Date & Time - 07/10/2025 07:00 AM) L AB: Microalbumin, Random L AB: Hemoglobin A1c (Collection Date & Time - 07/10/2025 07:00 AM) L AB: UA ClnCatch+Micro w/rflx Cult 3. P rediabetes L AB: Complete Blood Count Auto Diff (Collection Date & Time - 07/10/2025 07:00 AM) L AB: Comprehensive [place]. Panel Fast L AB: Lipid Panel (Collection Date & Time - 07/10/2025 07:00 AM) L AB: PSA,Total (Free>4and<10) (Collection Date & Time - 07/10/2025 07:00 AM) L AB: Microalbumin, Random L AB: Hemoglobin A1c (Collection Date & Time - 07/10/2025 07:00 AM) L AB: UA ClnCatch+Micro w/rflx Cult * Immunizations: Influenza High Dose : 0.5 mL (Dose No:1) (Route: Intramuscular) given by Sena Warner , Office Staff on Left Deltoid * Procedure Codes: 3 6415 VENIPUNCT, ROUTINE*, 89780 FLU VACC PRSV FREE INC ANTIG, G0008 ADMN FLU VAC NO FEE SCHED SAME DAY * * The named appointment provid er may or may not be the originator of this progress note, and it is not deemed complete until electronically signed by the appointment provider. Sign off status: Pending * Provider: Madan Acosta MD Date: 07/10/2025 Generated for Navjot mccall/Janay/Tanoitting on: 07/10/2025 11:47 AM EDT
[2025-07-10 10:30] LABS: MANUAL DIFF FLAG NO
[2025-07-10 11:12] LABS: Hematocrit 40.5 % (42.0-52.0); Hemoglobin 13.5 g/dl (14.0-18.0); Imm Gran Abs Auto 0.03 X10*3/uL (0.00-0.03); Imm Gran Pct Auto 0.3 % (0.0-0.4); Lymphocytes Absolute Auto 2.8 X10*3/uL (1.2-4.9); Mean Corpuscular HGB Conc 33.3 g/dl (31.0-36.0); Mean Corpuscular Hemoglobin 30.2 pg (27.0-33.0); Mean Corpuscular Volume 90.6 fL (80.0-98.0); NRBC Abs Auto 0.000 X10*3/uL (0.0-0.012); NRBC Pct Auto 0.0 /100WBC (0.0-0.2); Platelet Count 204 X10*3/uL (160-400); Red Blood Count 4.47 X10*6/uL (4.60-5.80); White Blood Count 10.2 X10*3/uL (4.8-10.8)
[2025-07-10 11:14] LABS: Anion Gap 12 (12-20); Blood Urea Nitrogen 19 mg/dL (9-16); Carbon Dioxide 24 mmol/L (22-29); Chloride 110 mmol/L (96-108); Potassium 4.2 mmol/L (3.3-5.1); Sodium 142 mmol/L (135-145)
[2025-07-10 11:15] LABS: Alanine Aminotransferase 27 U/L (0-40); Albumin Level 4.1 g/dL (3.5-5.0); Alkaline Phosphatase 78 U/L (39-117); Aspartate Amino Transferase 29 U/L (5-37); Calcium 8.8 mg/dL (8.4-10.2); Cholesterol 118 mg/dL (<200); Estimated Glomerular Filt Rate > 60; HDL Cholesterol 37 mg/dL (>40); Total Protein 7.1 g/dL (6.5-8.0); Triglycerides 98 mg/dL (<150)
[2025-07-10 11:16] LABS: Hemoglobin A1C 151.5542 umol/L; Total Hemoglobin (HGBA1C) 3547.2797 umol/L
[2025-07-10 11:35] LABS: PSA,Total (Free>4and<10) 0.26 ng/mL (0.00-4.00)
--- OUTSIDE RECORDS SUMMARY | 2025-07-10 11:48 | XMS_ITS | Patient Health Record ---
Author Organization Blue Acosta MD Address [address] [place], [place] [address] Care Team Providers Care Senior Administrative Support Name Role Phone Blue Acosta Primary Care Provider Allergies Allergen (clinical drug ingredient) Drug/Non Drug Allergy documented on EMR Reaction Allergy Type Onset Date Status zolpidem ambien (uncoded) hallucinations Allergy Active amoxil (uncoded) rash Allergy Act dick Results Component Value Reference Range Notes Liver Panel Reviewed date:01/02/2025 12:30:46 PM Interpretation: Performing Lab:[facility], [address] [place] [phone] Notes/Report: Bilirubin Total 0.6 0.0-1.0 mg/dL Bilirubin Direct 0.3 0.0-0.5 mg/dL Aspartate Amino Transferase 29 5-37 U/L Alanine Aminotransferase 22 0-40 U/L Total Protein 7.6 6.5-8.0 g/dL Albumin Level 3.9 3.5-5.0 g/dL Alkaline Phosphatase 80 39-117 U/L Glucose Fasting Reviewed date:01/02/2025 12:30:54 PM Interpretation: Performing Lab:[facility], [address] [place] [phone] Notes/Report: Glucose Fasting 118 60-99 mg/dL A fasting glucose from 100-125 mg/dl is considered impaired (pre-diabetes). Lipid Panel with Reflex Reviewed date:01/02/2025 12:31:05 PM Interpretation: Performing Lab:[facility], [address] [place] [phone] Notes/Report: Triglycerides 118 <150 mg/dL Desirable Triglyceride: [...] A1c Reviewed date:01/03/2025 06:16:13 PM Interpretation: Performing Lab:[address] [phone] Notes/Report: Hemoglobin A1c % 5.6 <6.0 % [...] average glucose, using the formula of the Q7Q-Toivbal Average Glucose study (ADAG), Diabetes Care, Vol.31,#8, May. 2007 Complete Blood Count Auto Di ff (Not yet reviewed by provider) Interpretation: Performing Lab:[facility], [address] [place] [phone] Notes/Report: White Blood Count 10.2 4.8-10.8 X10*3/uL [...] yet reviewe d by provider) Interpretation: Performing Lab:[facility], [address] [place] [phone] Notes/Report: Triglycerides 98 <150 mg/dL Desirable Triglyceride: [...] t yet reviewed by provider) Interpretation: Performing Lab:[facility], [address] [place] [phone] Notes/Report: PSA,Total (Free>4and<10) 0.26 0.00-4.00 ng/mL A [...] yet revi ewed by provider) Interpretation: Performing Lab:[address] [phone] Notes/Report: Hemoglobin A1c % 6.1 <6.0 % [...] average glucose, using the formula of the P3G-Xjmoerj Average Glucose study (ADAG), Diabetes Care, Vol.31,#8, 2007 Johnie Milner Reviewed date:01/02/2025 12:23:00 PM Interpretation: Performing Lab:[facility], [address] [place] [phone] Notes/Report: Johnie Milner See Note Specimen held untested for 24 hours; Call to request Chemistry testing. Complete Blood Count Auto Di ff Reviewed date:01/06/2025 08:02:47 PM Interpretation: Performing Lab:[facility], [address] [place] [phone] Notes/Report: White Blood Count 12.8 4.8-10.8 X10*3/uL [...] Reviewed date:01/06/2025 08:04:15 PM Interpretation: Performing Lab:[facility], [address] [place] [phone] Notes/Report: Sodium 140 135-145 mmol/L Potassium 4.1 [...] Magnesium Reviewed date:01/06/2025 07:58:26 PM Interpretation: Performing Lab:[facility], [address] [place] [phone] Notes/Report: Magnesium 1.8 1.6-2.6 mg/dL Lipase Reviewed date:01/06/2025 07:58:34 PM Interpretation: Performing Lab:[facility], [address] [place] [phone] Notes/Report: Lipase 23 8-78 U/L CT NG by PCR Reviewed date:01/07/2025 02:59:49 PM Interpretation: Performing Lab:[facility], [address] [place] [phone] Notes/Report: Urine CT PCR NOT DETECTED Not [...] Reviewed date:01/08/2025 04:41:34 PM Interpretation: Performing Lab:[facility], [address] [place] [phone] Notes/Report: Urine, Clean Catch Color Urine Yellow Appearance Urine Clear PH 5.5 5.0-9.0 Glucose Urine UA Negative Negative mg/dL Urine Blood Negative Negative Specific Stuart - Urine 1.015 1.005-1.025 Urine Protein Negative Neg-Trace mg/dL Urine Ketones Negative Negative mg/dL Nitrite Urine Negative Negative Leukocyte Esterase Urine Negative Negative CT abdomen pelvis wo con Reviewed date:01/06/2025 08:03:52 PM Interpretation: Performing Lab: Notes/Report: [address] [address] [address] Scan Report Signed Patient: Mahin Ambrocio MR#: [id number] 045 : 1955 Acct:[id number] Age/Sex: 69 / M ADM Date: 01/06/25 Loc: HO.ED Attending Dr: Ordering Physician: Cristina Birmingham Date of Service: 01/06/25 Procedure(s): CT abdomen pelvis wo IV con Accession Number(s): [id number] cc: Blue Acosta MD; Cristina Birmingham Report Number: [id number]: Total DLP = 1401.00 mGy-cm EXAMINATION: CT [...] 01/06/25 1414 DD/ 1310 TD/TT: 01/06/25 1402 Glass Bulb Silverer: [address] [address] [address] Scan Report Signed Patient: Ziyad Ambrocio in G MR#: [id number] 045 : 1955 Acct:[id number] Age/Sex: 69 / M ADM Date: 01/06/25 Loc: HO.ED Attending Dr: Ordering Physician: Cristina Birmingham Date of Service: 01/06/25 Procedure(s): CT abd omen pelvis wo IV con Accession Number(s): [id number] cc: Blue Acosta MD; Cristina Birmingham Report Number: [id number]: Total DLP = 1401.00 mGy-cm EXAMINATION: CT [...] 01/06/25 1414 DD/ 1310 TD/TT: 01/06/25 1402 Glass Bulb Silverer: US scrotum Reviewed date:01/07/2025 03:00:25 PM Interpretation: Performing Lab: Notes/Report: [address] [address] Ultrasound Report Signed Patient: Mahin Ambrocio MR#: [id number] 045 : 1955 Acct:[id number] Age/Sex: 69 / M ADM Date: 01/06/25 Loc: HO.ED Attending Dr: Ordering Physician: Omid Lopez MD Date of Service: 01/06/25 Procedure(s): US scrotum Accession Number(s): [id number] cc: Blue Acosta MD; Omid Lopez MD CLINICAL HISTORY: L testicular pain. Ultrasound scrotum. COMPARISON: None Technique: Real time sonographic imaging, including color-flow imaging, was performed by the registered nurse float pool. Multiple high school admissions representative static images were saved for review. [...] OV> 01/07/25 0804 DD/ 15 TD/TT: 01/06/251815 Glass Bulb Silverer: [place] [address] Ultrasound Report Signed Patient: Ziyad Ambrocio MR#: [id number] 045 : 1955 Acct:[id number] Age/Sex: 69 / M ADM Date: 01/06/25 Loc: HO.ED Attending Dr: Ordering Physician: Omid Lopez MD Date of Service: 01/06/25 Procedure(s): US scrotum Accession Number(s): [id number] cc: Blue Acosta MD; Omid Lopez MD CLINICAL HISTORY: L testicular pain. Ultrasound scrotum. COMPARISON: None Technique: Real time sonographic imaging, including color-flow imaging, was performed by the registered nurse float pool. Multiple high school admissions representative static images were saved for review. [...] OV> 01/07/25 0804 DD/ 15 TD/TT: 01/06/251815 Glass Bulb Silverer: US scrotum doppler Reviewed date:01/06/2025 08:04:52 PM Interpretation: Performing Lab: Notes/Report: [place] [address] Ultrasound Report Signed Patient: Mahin Ambrocio MR#: [id number] 045 : 1955 Acct:[id number] Age/Sex: 69 / M ADM Date: 01/06/25 Loc: HO.ED Attending Dr: Ordering Physician: Louise Callejas Date of Service: 01/06/25 Procedure(s): US scrotum doppler Accession Number(s): [id number] cc: Blue Acosta MD; Louise Callejas CLINICAL HISTORY: L testicular pain. Ultrasound scrotum. COMPARISON: None Technique: Real time sonographic imaging, including color-flow imaging, was performed by the registered nurse float pool. Multiple high school admissions representative static images were saved for review. [...] in OV> 01/06/251815 DD/ 15 TD/TT: 01/06/251815 Glass Bulb Silverer: [place] [address] Ultrasound Report Signed Patient: Ziyad Ambrocio MR#: [id number] 045 : 1955 Acct:[id number] Age/Sex: 69 / M ADM Date: 01/06/25 Loc: HO.ED Attending Dr: Ordering Physician: Luoise Callejas Date of Service: 01/06/25 Procedure(s): US scr otum doppler Accession Number(s): [id number] cc: Blue Acosta MD; Louise Callejas CLINICAL HISTORY: L testicular pain. Ultrasound scrotum. COMPARISON: None Technique: Real time sonographic imaging, including color-flow imaging, was performed by the registered nurse float pool. Multiple high school admissions representative static images were saved for review. [...] signed by Levy Bonilla MD in OV> 01/06/256 DD/ 15 TD/TT: 01/06/251815 Glass Bulb Silverer: XR chest 2V Reviewed date:01/13/2025 02:56:25 PM Interpretation: Performing Lab: Notes/Report: [address] [address] XRay Report Signed Patient: Mahin Ambrocio MR#: [id number] 045 : 1955 Acct:[id number] Age/Sex: 69 / M ADM Date: 01/09/25 Loc: HO.XRAY Attending Dr: Blue Acosta MD Ordering Physician: Blue Acosta MD Date of Service: 01/09/25 Procedure(s): XR chest 2V Accession Number(s): [id number] cc: Blue Acosta MD EXAMINATION: XR CHEST [...] 01/09/25 1059 DD/ 1000 TD/TT: 01/09/25 1010 Glass Bulb Silverer: [facility] [address] [place] [address] XRay Report Signed Patient: Ziyad Ambrocio MR#: [id number] 045 : 1955 Acct:[id number] Age/Sex: 69 / M ADM Date: 01/09/25 Loc: HO.XRAY Attending Dr: Blue Acosta MD Ordering Physician: Blue Acosta MD Date of Service: 01/09/25 Procedure(s): XR isaias st 2V Accession Number(s): [id number] cc: Blue Acosta MD EXAMINATION: XR CHEST [...] 01/09/25 1059 DD/ 1000 TD/TT: 01/09/25 1010 Glass Bulb Silverer: MR abdomen wo/w con Reviewed date:02/17/2025 04:48:05 PM Interpretation: Performing Lab: Notes/Report: [address] [address] Magnetic Resonance Report Signed Patient: Mahin Ambrocio MR#: [id number] 045 : 1955 Acct:[id number] Age/Sex: 69 / M ADM Date: 02/16/25 Loc: HO.MRI Attending Dr: Jamey Rojas MD Ordering Physician: Jamey Rojas MD Date of Service: 02/16/25 Procedure(s): MR abdomen wo/w con Accession Number(s): [id number] cc: Blue Acosta MD; Jamey Rojas MD CLINICAL HISTORY: N28.1 - Cyst of kidney, acquired MR abdomen with and without gadolinium Comparison: CT/OK/SR - CT ABDOMEN PELVIS WO IV CON [...] 02/17/25 1311 DD/ 1309 TD/TT: 02/17/25 1309 Glass Bulb Silverer: [place] [address] Magnetic Resonance Report Signed Patient: Ziyad Ambrocio MR#: [id number] 045 : 1955 Acct:[id number] Age/Sex: 69 / M ADM Date: 02/16/25 Loc: HO.MRI Attending Dr: Jamey Rojas MD Ordering Physician: Jamey Rojas MD Date of Service: 02/16/25 Procedure(s): MR abd omen wo/w con Accession Number(s): [id number] cc: Blue Acosta MD; Jamey Rojas MD CLINICAL HISTORY: N2 8.1 - Cyst of kidney, acquired MR abdomen with and without gadolinium Comparison: CT/OK/SR - CT ABDOMEN PELVIS WO IV CON [...] 02/17/25 1311 DD/ 1309 TD/TT: 02/17/25 1309 Glass Bulb Silverer: XR lumbar spine 4V min Reviewed date:02/23/2025 12:34:44 PM Interpretation: Performing Lab: Notes/Report: [facility] [address] [place] [address] Drive [address] [place] [address] XRay Report Signed Patient: Mahin Ambrocio MR#: [id number] 045 : 1955 Acct:[id number] Age/Sex: 69 / M ADM Date: 02/20/25 Loc: HO.HOSX Attending Dr: Simon Solano MD, PhD Ordering Physician: Simon Solano MD, PhD Date of Service: 02/20/25 Procedure(s): XR lumbar spine 4V min Accession Number(s): [id number] cc: Blue Acosta MD; Simon Solano MD, PhD CLINICAL HISTORY: M43.16 - Spondylolisthesis, lumbar region 4 views lumbar spine Comparison: CT/OK/SR - CT ABDOMEN PELVIS WO IV CON [...] in OV> 02/23/25822 DD/ 1 TD/TT: 02/23/25821 Glass Bulb Silverer: [facility] [address] [place] [address] Suleiman KRYSTAL Walsh [address] XRay Report Signed Patient: Ziyad Ambrocio MR#: [id number] 045 : 1955 Acct:[id number] Age/Sex: 69 / M ADM Date: 02/20/25 Loc: HO.HOSX Attending Dr: Richard Solano MD, PhD Ordering Physician: Simon Solano MD, PhD Date of Service: 02/20/25 Procedure(s): XR lum bar spine 4V min Accession Number(s): [id number] cc: Blue Acosta MD; Simon Solano MD, PhD CLINICAL HISTORY: M4 3.16 - Spondylolisthesis, lumbar region 4 views lumbar spine Comparison: CT/OK/SR - CT ABDOMEN PELVIS WO IV CON [...] in OV> 02/23/25822 DD/ 1 TD/TT: 02/23/25821 Glass Bulb Silverer: bladder Reviewed date:05/28/2025 12:37:23 PM Interpretation: Performing Lab: Notes/Report: [facility] [place] [address] Ultrasound Report Signed Patient: Mahin Ambrocio MR#: [id number] 045 : 1955 Acct:[id number] Age/Sex: 69 / M ADM Date: 05/28/25 Loc: .HMGCX Attending Dr: Don Aj MD Ordering Physician: Don Aj MD Date of Service: 05/28/25 Procedure(s): US bladder Accession Number(s): [id number] cc: Don Aj MD; Blue Acosta MD CLINICAL HISTORY: N32.0 - Bladder-neck obstruction US bladder with color Doppler Comparison: US/OK - US SCROTUM DOPPLER - 01/06/25 17:[address]/OK/SR - CT ABDOMEN PELVIS WO IV CON [...] in OV> 05/28/2547 DD/ 5 TD/TT: 05/28/25945 Glass Bulb Silverer: [facility] [address] [place] [address] [place] [address] Ultrasound Report Signed Patient: Ziyad Ambrocio MR#: [id number] 045 : 1955 Acct:[id number] Age/Sex: 69 / M ADM Date: 05/28/25 Loc: HO.HMGCX Attending Dr: Joselin Bach MD Ordering Physician: Don Aj MD Date of Service: 05/28/25 Procedure(s): US bladder Accession Number(s): [id number] cc: Don Aj MD; Blue Acosta MD CLINICAL HISTORY: N3 2.0 - Bladder-neck obstruction US bladder with colo r Doppler Comparison: US/OK - US SCROTUM DOPPLER - 01/06/25 17:[address]/OK/SR - CT ABDOME N PELVIS WO IV [...] in OV> 05/28/2547 DD/ 5 TD/TT: 05/28/25945 Glass Bulb Silverer: Comprehensive Met. Panel (No t yet reviewed by provider) Interpretation: Performing Lab:[facility], [address] [place] [phone] Notes/Report: Sodium 142 135-145 mmol/L Potassium 4.2 3.3-5.1 mmol/L Chloride 110 96-108 mmol/L Carbon Dioxide 24 22-29 mmol/L Anion Gap 12 12-20 Blood Urea Nitrogen 19 9-16 mg/dL Creatinine 0.92 0.5-1.4 mg/dL Estimated Glomerular Filt Rate > 60 Chronic Kidney Disease: Estimated GFR < 60 mL/min/1.73m2 Severe Kidney Disease: Estimated GFR < 15 mL/min/1.73m2 Glucose Random 120 60-115 mg/dL Calcium 8.8 8.4-10.2 mg/dL Bilirubin Total 0.6 0.0-1.0 mg/dL Aspartate Amino Transferase 29 5-37 U/L Alanine Aminotransferase 27 0-40 U/L Total Protein 7.1 6.5-8.0 g/dL Albumin Level 4.1 3.5-5.0 g/dL Alkaline Phosphatase 78 39-117 U/L Reason For Referral No Information Medications Medication [...] HCl 10 MG 1 tablet at be dtimi as needed Orally Once a day Active [...] Administered pt was given the vaccine at [facility] on [facility]. Fluarix Quadrivalent IM Intramuscular 06/24/2018 Administe [...] Quadrivalent - 150 IM Intramuscular 07/03/2024 Administered Influenza High Dose IM Intramuscular 07/10/2025 Administer ed Flu Vaccine Unknown 06/16/2014 Pending Social History [...] Problem Status W/U Status Risk Notes Problem 547643708 Diverticulitis (K57.92) Active confirmed Problem 596697346 Mixed hyperlipidemia (E78.2) Active confirmed Problem 311345102 Paroxysmal atria l fibrillation (I48.0) Active confirmed Problem 85057775 Atherosclerosis of aorta (I70.0) Active confirmed Problem 35964154344139991 Acute recurren t frontal sinusitis (J01.11) Active confirmed Problem 051789495 Angina effort (I20.8) Active confirmed Problem 233783767 Lumbar disc disease (M51.9) Active confirmed Problem 372645430 Tubular adenoma of colon (D12.6) Active confirmed Problem 03370599 Essential hypertension (I10) Active confirmed Problem 0408842 Prediabetes (R73.09) Active confirmed Problem 635062602 Morbid obesity d ue to excess calories (E66.01) Active confirmed Problem 938862200 Cervical disc disease (M50.90) Active confirmed Problem 667216901 Hammertoe of lef t foot (M20.42) Active [...] Blue Acosta MD [address] [place] [id number] 01/02/2025 Blue Acosta Mixed hyperlipidemia E78.2 and Prediabetes R73.09 Blue Acosta MD [address] [place] [id number] 07/10/2025 Blue Acosta Mixed hyperlipidemia E78.2 ; Essential hypertension I10 ; Prediabetes R73.09 and Encounter for administration of vaccine Z23 Blue Acosta MD [address] [place] [id number] 07/10/2024 Blue Acosta Essential hypertensi on I10 ; Prediabetes R73.09 ; Morbid obesity due to excess calories E66.01 ; Guaiac positive stools R19.5 ; Mixed hyperlipidemia E78.2 ; Colon cancer screening Z12.11 ; Depression screening Z13.31 and Paroxysmal atrial fibrillation I48.0 Blue Acosta MD [address] [place] [id number] 01/09/2025 Blue Acosta Pleural effusion J90 ; Lumbar disc disease with radiculopathy M51.16 ; Foot drop, left M21.372 ; Prediabetes R73.09 and Mixed hyperlipidemia E78.2 Blue Acosta MD [address] [place] [id number] 01/08/2025 Blue Acosta MD [address] [place] [id number] 01/12/2025 Blue Acosta MD [address] [place] [id number] 01/13/2025 Blue Bombardier Pleural effusion J90 Assessments Encounter Date Diagnosis (ICD Code) Assessment Notes Treatment Notes Treatment Clinical Notes Section Notes 01/02/2025 Mixed hyperlipidemia (ICD-10 - E78.2) 07/10/2025 Mixed hyperlipidemia (ICD-10 - E78.2) 07/10/2025 Essential hypertension (ICD-10 - I10) 07/10/2024 Essential hypertension (ICD-10 - I10) stable, will contiue current regiment 07/10/2024 Prediabetes (ICD-10 - R73.09) is going to try dieting 01/09/2025 Pleural effusion (ICD-10 - J90) pending diagnostic testing, THE ORDER WAS PRINTED AND GIVEN TO MAHIN 01/09/2025 Lumbar disc disease with radiculopathy (ICD-10 - M51.16) pending diagnstic testing, THE ORDER HAS BEEN FAXED TO [facility] FOR SCHEDULING 01/13/2025 Pleural effusion (ICD-10 - J90) Order made and put into the future order folder for . 01/02/2025 Prediabetes (ICD-10 - R73.09) 07/10/2025 Prediabetes (ICD-10 - R73.09) 07/10/2024 Morbid obesity due to excess calories (ICD-10 - E66.01) hopefully get on diet 01/09/2025 Foot drop, left (ICD-10 - M21.372) pending diagnostic testing 07/10/2025 Encounter for administration of vaccine (ICD-10 - Z23) 07/10/2024 Guaiac positive stools (ICD-10 - R19.5) [...] CHEST 2 VIEW PA & LAT 01/09/2025 Complete Blood Count Auto Diff Comprehensive Met. Panel 07/10/2025 Comprehensive Adel. Panel Fast Lipid Panel 07/10/2025 PSA,Total (Free>4and<10) 07/10/2025 Microalbumin, Random 07/10/2025 XR chest 2V 01/13/2025 Hemoglobin A1c 07/10/2025 UA ClnCatch+Micro w/rflx Cult 07/10/2025 Future Test Test Name Order Date CT ABD & PELVIS WITH CONTRAST 2020 Next Appt Details Provider Name:Blue Arechiga ier, 07/16/2025 08:00:00 AM, [address] [place] [address], [address], [place], [place], [phone], Insurance Providers Payer Name Payer Address Payer Phone Subscriber Number Group Number Insured Name Patient Relationship to Insured Coverage Start Date Coverage End Date MEDICARE NHIC SOL [address] [place] [address] [id number] Mahin Ambrocio Self - patient is the insured [facility] [address] [place] [address] [id number] Mahin Ambrocio Self - patient is the insured Medical (General) History Medical History History ICD Code colonoscopy 04/2012 for recta l bleeding due in 10 years; Colonoscopy done 10/27/[address] Sanchez - repeat 5 years. 03/30/25 colonoscopy - Daniel repeat 5y
--- OUTSIDE RECORDS SUMMARY | 2025-07-10 11:48 | XMS_ITS | Patient Health Record ---
Author Organization [facility] Address [address] [place] [phone] Care Team Providers Care Trim Mounter Name Role Phone Blue Acosta MD Primary Care Provider Corby Michel [phone] Allergies Allergen (clinical drug ingredient) Drug/Non Drug [...] Status Risk Notes Problem Irritable bowel syndrome (43257836) Irritable bowel syndrome (K58.9) Active confirmed Problem 828314450 Encounter for screening for malignant neoplasm of colon (Z12.11) Active confirmed Problem 147070697 History of adenomatous polyp of colon (Z86.010) Active confirmed Problem Constipation (14950292) Constipation (K59.00) Active confirmed Problem Abdominal bloating (421899850) Abdominal bloating (R14.0) Active confirmed Problem 142311813055065 Preprocedural examination (Z01.818) Active confirmed Problem 481137864 Long-term use of aspirin therapy (Z79.82) Active confirmed Problem Chronic constipation (704865322) Constipation, chronic (K59.00) Active confirmed Problem Benign neoplasm of colon (43918147) Serrated adenoma of colon (D12.6) Active confirmed Problem Serrated polyp of colon (067466791) Serrated polyp of colon (K63.5) Active confirmed Vital Signs Blood pressure diastolic 11 mm Hg 12/11/2024 Height 74 in 12/11/2024 Blood pressure systolic 111 mm Hg 12/11/2024 Weight 337 lbs 12/11/2024 BMI 43.26 kg/m2 12/11/2024 Procedures Procedure Date Ordered Date Performed Result Body Sit e COLONOSCOPY 12/11/2024 N/A Encounters Encounter Location Date Provider Diagnosis [facility] [address] [place], [place] [phone] 03/30/2025 Corby Sanchez Colon cancer screeni ng Z12.11 ; Personal history of adenomatous and serrated colon polyps Z86.0101 ; Diverticulosis of large intestine without perforation or abscess without bleeding K57.30 and Other hemorrhoids K64.8 [facility] [address] [place] [phone] 12/11/2024 Corby Sanchez History of adenomato us polyp of colon Z86.010 ; Abdominal bloating R14.0 ; Encounter for screening for malignant neoplasm of colon Z12.11 ; Preprocedural examination Z01.818 ; Long-term use of aspirin therapy Z79.82 ; Serrated polyp of colon K63.5 ; Serrated adenoma of colon D12.6 and Irritable bowel syndrome K58.9 [facility] [address] [place] [phone] 02/24/2025 Corby Sanchez [facility] [address] [place] [phone] 03/26/2025 Corby Daniel Assessments Encounter Date Diagnosis [...] advised him that he could try some pyxg-odt-segbadj simethicone to help with the bloating and [...] advised him that he could try some wkza-akh-qsvauvx simethicone to help with the bloating and [...] advised him that he could try some ljzg-lqe-rvqhvof simethicone to help with the bloating and [...] advised him that he could try some fckc-pqr-xgvvsqr simethicone to help with the bloating and [...] advised him that he could try some vjuj-bvi-gjtwwdp simethicone to help with the bloating and [...] advised him that he could try some lotd-nzw-nmiluvp simethicone to help with the bloating and [...] advised him that he could try some ymmj-mpb-anbtuit simethicone to help with the bloating and [...] advised him that he could try some mdsj-ous-nnygjyf simethicone to help with the bloating and [...] OF [place] [address] [place] [address] [id number] KYRIE JORGE Self - patient is the insured [employer] ([place]) [address] [place] [address] [phone] [id number] JORGE, KYRIE Self - patient is the insured Medical (General) History Medical History History ICD Code Colonoscopy 12/29/2005-negati ve for polyps; colonoscopy in 04/2012 with a tiny serrated adenoma of the cecum, diverticulosis, and internal hemorrhoids ERCP for choledocholithiasis in 06/2005 Duodenal ulcers in 2004 Denies ND,DM,CVA,Lung disease,renal dise ase HTN Sleep apnea--uses a [...]
--- OUTSIDE RECORDS SUMMARY | 2025-07-10 11:48 | XMS_ITS | Patient Health Record ---
Author Organization [facility] hallie Temple Address [address] [place] [address] Care Team Providers Care Career Technology Teacher Name Role Phone Blue Acosta MD Primary Care Provider Milli Jimenez Unavailable [phone] Allergies Allergen (clinical drug ingredient) Drug/Non Drug [...] W/U Status Risk Notes Problem Tinea unguium (218141588) Tinea unguium (B35.1) Active confirmed Problem Acquired hammer toe of left foot (9988163183728051 ) Other hammer toe(s) (acquired), left foot (M20.42) Active confirmed Problem Localized, primary osteoarthritis of the ankle and/or foot (758556899) Arthritis of joint of lesser toe, left [...] X ray : Foot, left 3V 05/06/2024 [id number] NAIL, 1-5 08/17/2023 [id number] NAIL, 1-5 03/31/2016 83327- Debride <25 sq cm 09/02/2013 11705- Debride <25 sq cm 08/17/2023 [id number] SKIN/TISSUE 07/07/2013 [id number] SKIN/TISSUE 07/22/2013 [id number] SKIN/TISSUE 08/12/2013 Insurance Providers Payer Name Payer Address Payer Phone Subscriber Number Group Number Insured Name Patient Relationship to Insured Coverage Start Date Coverage End Date Medicare National [employer] [address] [facility] [place] [address] [phone] [id number] Mahin Ha Self - patient is the insured [facility] ([facility]) [address] [place] [address] [phone] [id number] Mahin Ha Self - patient is [...]
== END 2025-07-10 10:23 | disposition home or self-care (01) ==
LOC: HO.LNP 10:22
PROVIDERS: Visit Provider Internal Medicine
DX: Z12.5 Encounter for screening for malignant neoplasm of prostate (principal); I10 Essential (primary) hypertension; R73.09 Other abnormal glucose; E78.2 Mixed hyperlipidemia
CPT/HCPCS: 80053; 80061; 83036; 84153; 85025

== ENCOUNTER 2025-07-15 11:59 | Outpatient (AMB) | payer MEDICARE, OTHER, SELFPAY ==
[2025-07-15 12:14] VITALS: BP 124/70; PULSE 70; TEMP 36.6; O2SAT 94; BMI 42.7
--- NOTE | 2025-07-15 12:14 | AM.OFFWIN_ITS ---
Intake Vital Signs 07/15/25 12:14 Height 6 ft 3 in Weight 342 lb BMI 42.7 BP 124/70 Blood Pressure Location Lt brachial Position Sitting Pulse 70 Pulse Source Pulse Oximeter Temp 97.8 F Temp Source Oral Pulse Oximetry (%) 94 Oxygen Delivery Method Room Air Intake Visit Reasons: EP-sinus infection Intake Note: pt presents with sinus congestion, pain, ear pain, sore eyes Patient Tobacco Use Status: Never used Tobacco Allergies zolpidem (Ambien) Allergy (Severe, Verified 07/15/25 12:17) Unknown environmental allergies Adverse Reaction (Intermediate, Verified 07/15/25 12:17) Sinus Inflammation Do you need a note to return to daycare/school/sports/work: No HPI HPI Comments History of Present Illness Details History of Present Illness - The patient is a 69-year-old male pres enting with symptoms of congestion and sinus pain and pressure. - Reports congestion and plugged ears wi thout fever, impacting CPAP use. - History of allergy shots disrupted due to physician mcfp. - Has an upcoming appt in Aug but has be en having symptoms and infections on and off since May. - Previous treatments included Augmentin and doxycycline, with doxycycline being more effective. - Levaquin was effective for similar sym ptoms previously. - Not taking allergy medications but adv ised to consider antihistamines like Zyrtec or Claritin. - He denies fever, chills, chest pain, S OB, abd pain, n/v/d, dizziness, cough, or sick contacts. Physical Exam General: Cooperative, healthy appearing, comfortable, no acute distress and well developed Head: Normal to inspection Ears: Hearing grossly normal bilaterally. No tragus or mastoid tenderness noted. Auditory canals clear bilaterally. TM's normal, not bulging. No fluid noted. Nose: Normal external nose present. Moist mucosa. Turbinates normal bilaterally, not boggy. Face and sinus: Tenderness to palpation of the frontal and maxillary sinuses bilaterally. Neck: Normal visual inspection and Yes full ROM. No lymphadenopathy noted. Respiratory: Normal respiratory effort and able to speak in complete sentences. Clear to auscultation bilaterally Cardiovascular: Regular rate and rhythm. Normal S1 and S2 GI: Normal to inspection. Soft to palpation and nontender, nondistended. No guarding noted. Skin: No rashes or lesions noted [facility] Medical History (Updated 06/17/25 @ 12:23 by Don Aj MD) Renal cyst Bleeding hemorrhoids HTN (hypertension) PAF (paroxysmal atrial fibrillation) Surgical History (Updated 03/26/25 @ 14:10 by Cristina Mosqueda RN) Hx of endoscopic retrograde cholangiopancreatography H/O colonoscopy Hx of foot surgery History of tonsillectomy and adenoidectomy History of deviated nasal septum Hx of cholecystectomy History of mandibular surgery Family History Father CVD (cardiovascular disease) Mother No problems noted. Social History Alcohol intake: never Patient Tobacco Use Status: Never used Tobacco Current occupational status: retired Review of Systems Const All systems reviewed & are unremarkable except as noted in HPI and below Physical Exam Vital Signs: Last Vital Signs Temp 97.8 F 07/15/25 12:14 Pulse 70 07/15/25 12:14 BP 124/70 07/15/25 12:14 Pulse Ox 94 07/15/25 12:14 Oxygen Delivery Method Room Air 07/15/25 12:14 BMI result Body Mass Index 42.7 Assessment & Plan Assessment & Plan (1) Sinusitis, chronic: Code(s): J32.9 - Chronic sinusitis, unspecified Qualifiers: Sinusitis location: maxillary Qualified Code(s): J32.0 - Chronic maxillary sinusitis Plan Most likely sinusitis vs OM vs URI vs allergic rhinitis plan - steam showers - tylenol or motrin as needed - prednisone for 5 days - levoquin for 7 days, advised him to be careful with the fleconide - cetirizine daily - follow up with PCP - has an ENT appt in Nov Coding Level of Care Code Est Pt Level 3 (31702) Diagnoses Chronic maxillary sinusitis J32.0 Sinusitis location: maxillary
== END 2025-07-15 13:43 | disposition home or self-care (01) ==
PROVIDERS: PCP Internal Medicine; Visit Provider Physician Assistant Medical
DX: J32.0 Chronic maxillary sinusitis (principal)

== ENCOUNTER → 2025-07-15 11:59 | Outpatient (BNVA) | payer MEDICARE, OTHER, SELFPAY | PROVIDERS: PCP Internal Medicine; Visit Provider Physician Assistant Medical | DX: I10 Essential (primary) hypertension (principal); J32.0 Chronic maxillary sinusitis; Z99.89 Dependence on other enabling machines and devices | CPT/HCPCS: 99212 ==

== ENCOUNTER 2025-07-16 10:43 | Outpatient (REF) | payer MEDICARE, OTHER, SELFPAY ==
--- OUTSIDE RECORDS SUMMARY | 2024-04-23 06:00 | XMS_ITS ---
Author Organization [facility] Address [address] [facility] [place] [address] Care Team Providers Care Relationship Assoc Name Role Phone Karla PAZ, Blue Primary Care Provider UnaMilli Barrett Unavailable [phone] Encounters Encounter Location Date Provider Diagnosis Surgery [facility] ([facility]) [address] [place] [phone] 04/23/2024 Milli Yost Plan Of Treatment No Information Progress Notes * Mahin JORGE GDOB:[birth year] (69 yo M)Acc No.[id number]:04/23/2024 Patient: Mahin LAWRENCE Provider: Harjit Yost DPM [...] 04/23/2024 Generated for Printi ng/Faxing/eTransmitting on: 1 12:30 PM EDT
--- OUTSIDE RECORDS SUMMARY | 2025-01-09 05:15 | XMS_ITS ---
Author Organization Blue Acosta MD Address [address] [place], [place] [phone] Care Team Providers Care Pile Driving Superintendent Name Role Phone Blue Acosta Primary Care [...] kg/m2 01/09/2025 weight is down 6 pounds [facility] e 07-10-24 Encounters Encounter Location Date Provider Diagnosis Blue Acosta MD [address] [place] [address] [address] [place], [place] [phone] 01/09/2025 Blue Acosta Pleural effusion J90 ; [...] testing, THE ORDER HAS BEEN FAXED TO [facility] FOR SCHEDULING 01/09/2025 Foot drop, left (ICD-10 [...] testing, THE ORDER HAS BEEN FAXED TO [facility] FOR SCHEDULING Foot drop, left pending diagnostic t esting Prediabetes stable, no need for medication at this time, will contiue to monitor Mixed hyperlipidemia stable, will contin ue current regiment Pending Test Test Name Order Date MRI LUMBAR SPINE NO CONTRAST 01/09/2025 XR CHEST 2 VIEW PA & LAT 01/09/2025 Next Appt Details Provider Name:Blue Arechiga ier, 08/18/2025 09:00:00 AM, [address] [place] [address], [address] [place] [address], [phone], Provider Name:Blue Arechiga ier, 01/18/2026 07:30:00 AM, [address] [place] [address], [address] [place] [address], [phone], Provider Name:Blue Arechiga ier, 01/25/2026 09:00:00 AM, [address] [place] [address], [address], [phone], Provider Name:Blue Arechiga ier, 07/12/2026 07:00:00 AM, [address] [place] [address], [address] [place] [address], [phone], Provider Name:Blue Arechiga ier, 07/19/2026 08:30:00 AM, [address] [place] [address], [address] [place] [address], [phone], Progress Notes * Kyrie AMBROCIO GDOB:[birth year] (69 yo M)Acc No.[id number]:01/09/2025 Progress Notes Patient: Kyrie LAWRENCE Provider: Mdaan Acosta MD :1955 A ge:69 Y S ex:Male Date:01/09/2025 Address:[address] [place], [place] [phone] Subjective: * Chief Complaints: * 6 MO [...] testing, THE ORDER HAS BEEN FAXED TO [facility] FOR SCHEDULING 3. F oot [...] 01/09/2025 Generated for Navjot mccall/Janay/Tanoitting on: 1 12:30 PM EDT History and Physical Notes * [...]
--- OUTSIDE RECORDS SUMMARY | 2025-01-12 04:57 | XMS_ITS ---
Author Organization Blue Acosta MD Address [address] [place] [address] [place] [address] [phone] Care Team Providers Care Family Helper Name Role Phone Blue Acosta Primary Care Provider REASON FOR VISIT MRI order Encounters Encounter Location Date Provider Diagnosis Blue Acosta MD [address] [place] [address] [place] [address] [phone] 01/12/2025 Blue Acosta Plan Of Treatment Next Appt Details Provider Name:Blue garrido, 08/18/2025 09:00:00 AM, [address] [place] [address], [address], [phone], Provider Name:Blue garrido, 01/18/2026 07:30:00 AM, [address] [place] [address], [address], [phone], Provider Name:Blue garrido, 01/25/2026 09:00:00 AM, [address] [place] [address], [address], [phone], Provider Name:Blue garrido, 07/12/2026 07:00:00 AM, [address] [place] [address], [phone], Provider Name:Blue garrido, 07/19/2026 08:30:00 AM, [address] [place] [address], [phone], Progress Notes * Mahin AMBROCIO GDOB:[birth year] (69 yo M)Acc No.[id number]:01/12/2025 Patient: Mahin LAWRENCE :1955 A ge:69 Y S ex:Male Address:[address] [place] [phone] * true * Date: Generated for Navjot mccall/Janay/Tanoitting on: 12:32 PM EDT
--- OUTSIDE RECORDS SUMMARY | 2025-01-13 10:52 | XMS_ITS ---
Author Organization Blue Acosta MD Address [address] [place] [address] [place] [phone] Care Team Providers Care Container Filler Name Role Phone Blue Acosta Primary Care Provider REASON FOR VISIT Repeat CXR Encounters Encounter Location Date Provider Diagnosis Blue Acosta MD [address] [place] [phone] 01/13/2025 Blue Acosta Pleural effusion J90 Assessments [...] Details Provider Name:Blue garrido, 08/18/2025 09:00:00 AM, [address] [place] [address], [address], [phone], Provider Name:Blue garrido, 01/18/2026 07:30:00 AM, [address] [place] [address], [address], [phone], Provider Name:Blue garrido, 01/25/2026 09:00:00 AM, [address] [place] [address], [address], [phone], Provider Name:Blue garrido, 07/12/2026 07:00:00 AM, [address], [address], [place], [place], [phone], Provider Name:Blue Arechiga ier, 07/19/2026 08:30:00 AM, [address], [address], [place], [place], [phone], Progress Notes * Mahin AMBROCIO GDOB:[birth year] (69 yo M)Acc No.[id number]:01/13/2025 Patient: Yanick COLEMANMahin MORLEY :1955 A ge:69 Y S ex:Male Address:[address] [place] [address] Subjective: * Chief Complaints: * R epeat CXR * Medical History: * Surgical History: * Hospitalization/Major Diagno stic Procedure: * Medications: Objective: * Vitals: * Physical Examination: Assessment: * Assessment: 1. P leural effusion - J90 Plan: * Treatment: * Procedure Codes: * true * Date: Generated for Navjot mccall/Janay/eTransmitting on: 12:31 PM EDT
--- OUTSIDE RECORDS SUMMARY | 2025-03-20 05:30 | XMS_ITS ---
Author Organization [facility] Address [address] [place] [address] Care Team Providers Care Traffic Signal Supervisor Maintenance Name Role Phone Blue Acosta MD Primary Care Provider Corby Michel [phone] REASON FOR VISIT screening Encounters Encounter Location Date Provider Diagnosis [facility] Outpatient [address] [place] [id number] 03/20/2025 Corby Sanchez Plan Of Treatment No Information Progress Notes * JORGE KYRIE GDOB:[birth year] (69 yo M)Acc No.[id number]:03/20/2025 COLON WITH MAC Patient: KYRIE LAWRENCE Provider: Del Sanchez MD :1955 A ge:69 Y S ex:Male Date:03/20/2025 Address:[address] [place], [place] [phone] Pcp:Blue Acosta MD Subjective: * Chief Complaints: [...]
--- OUTSIDE RECORDS SUMMARY | 2025-03-30 09:10 | XMS_ITS ---
Author Organization [facility] Address [address] [place] [phone] Care Team Providers Care Hadoop Administrator Name Role Phone Blue Acosta MD Primary Care Provider Corby Michel [phone] Encounters Encounter Location Date Provider Diagnosis [facility] Out[place] [address] [place] [phone] 03/30/2025 Corby Sanchez Colon cancer scree ascencion [...] KYRIE JORGE GDOB:[birth year] (69 yo M)Acc No.[id number]:03/30/2025 COLON WITH MAC Patient: Yanick COLEMANPEYMAN KYRIE G Provider: Del Sanchez MD :1955 A ge:69 Y S ex:Male Date:03/30/2025 Address:[address] [place], [place] [phone] Pcp:Blue Acosta MD Subjective: * Chief Complaints: [...] 03/30/2025 Generated for Navjot mccall/Janay/Dietersmitting on: 1 12:31 PM EDT
--- OUTSIDE RECORDS SUMMARY | 2025-07-10 03:00 | XMS_ITS ---
Author Organization Blue Acosta MD Address [address] [place], [place] [phone] Care Team Providers Care Gluer And Wedger Name Role Phone Blue Acosta Primary Care Provider [phone] Results Component Value Reference Range Notes Complete Blood Count Auto Di ff Reviewed date:07/10/2025 12:29:22 PM Interpretation: Performing Lab:[facility], [address] [place] [phone] Notes/Report: White Blood Count 10.2 4.8-10.8 X10*3/uL [...] Panel Reviewed date:07/10/2025 12:29:39 PM Interpretation: Performing Lab:[address] [phone] Notes/Report: Triglycerides 98 <150 mg/dL Desirable Triglyceride: [...] (Free>4and<10) Reviewed date:07/10/2025 12:29:01 PM Interpretation: Performing Lab:[facility], [address] [place] [phone] Notes/Report: PSA,Total (Free>4and<10) 0.26 0.00-4.00 ng/mL A [...] A1c Reviewed date:07/10/2025 12:28:51 PM Interpretation: Performing Lab:[facility], [address] [place] [phone] Notes/Report: Hemoglobin A1c % 6.1 <6.0 % [...] average glucose, using the formula of the B3E-Bgwqdkn Average Glucose study (ADAG), Diabetes Care, Vol.31,#8, May. 2007 REASON FOR VISIT FASTING LABS Immunizations Vaccine Route Administration Date Status Comme nts Influenza High Dose IM Intramuscular 07/10/2025 Administer ed Encounters Encounter Location Date Provider Diagnosis Blue Acosta MD [address] [place], [place] [phone] 07/10/2025 Blue Acosta Mixed hyperlipidemia E78.2 ; [...] Pending Test Test Name Order Date Comprehensive [place]. Panel Fast 5 Microalbumin, Random 07/10/2025 UA ClnCatch+Micro w/rflx Cult 07/10/2025 Next Appt Details Provider Name:Blue garrido, 08/18/2025 09:00:00 AM, [address], [address], [place], [place], [phone], Provider Name:Blue Arechiga ier, 01/18/2026 07:30:00 AM, [address], [address], [place], [phone], Provider Name:Blue Arechiga ier, 01/25/2026 09:00:00 AM, [address], [address], [place], [phone], Provider Name:Blue Arechiga ier, 07/12/2026 07:00:00 AM, [address], [address], [place], [phone], Provider Name:Blue Arechiga ier, 07/19/2026 08:30:00 AM, [address], [address], [place], [phone], Progress Notes * Mahin AMBROCIO GDOB:[birth year] (69 yo M)Acc No.[id number]:07/10/2025 Progress Note Patient: Mahin LAWRENCE Provider: Madan Acosta MD :1955 A ge:69 Y S ex:Male Date:07/10/2025 Address:[address] [place], [place] [phone] Subjective: * Chief Complaints: * 1 . FASTING LABS. * Medical History: Objective: * Vitals: Assessment: * Assessment: 1. E ncounter for administration of vaccine - Z23 (Primary) 2 . M ixed hyperlipidemia - E78.2 3 . E ssential hypertension - I10 4 . P rediabetes - R73.09 Plan: * Treatment: 2. E ssential hypertension L AB: Comprehensive [place]. Panel Fast L AB: Microalbumin, Random L [...] AM) 3. P rediabetes L AB: Comprehensive [place]. Panel Fast L AB: Microalbumin, Random L [...] * Procedure Codes: 3 6415 VENIPUNCT, ROUTINE*, 61853 FLU VACC PRSV FREE INC ANTIG, G0008 [...] 07/10/2025 Generated for Navjot mccall/Janay/Tanoitting on: 1 12:30 PM EDT
--- OUTSIDE RECORDS SUMMARY | 2025-07-16 04:00 | XMS_ITS ---
Author Organization Blue Acosta MD Address [address] [place], [place] [phone] Care Team Providers Care Packaging Machine Operator Name Role Phone Blue Acosta Primary Care Provider [phone] Allergies Allergen (clinical drug ingredient) Drug/Non Drug Allergy documented on EMR Reaction Allergy Type Onset Date Status zolpidem ambien (uncoded) hallucinations Allergy Active amoxil (uncoded) rash Allergy Act dick Results Component Value Reference Range Notes Microalbumin, Random (Not ye t reviewed by provider) Interpretation: Performing Lab:[facility], [address] [place] [phone] Notes/Report: Creatinine Urine 91.72 Microalbumin Urine 8.0 Microalbum/Creatinine Ratio Ur 8.7 <30 ug/mg cr Albumin/Creatinine Ratio Reference Ranges: Normal: < 30 ug/mg creatinine Microalbuminuria: 30 - 300 ug/mg creatinine Clinical Albuminuria: > 300 ug/mg creatinine UA ClnCatch+Micro w/rflx Cul t (Not yet reviewed by provider) Interpretation: Performing Lab:[facility], [address] [place] [phone] Notes/Report: Urine, Clean Catch Color Urine Yellow Appearance Urine Clear PH 6.5 5.0-9.0 Glucose Urine UA Negative Negative mg/dL Urine Blood Negative Negative Specific [place] - Urine 1.015 1.005-1.025 Urine Protein Negative Neg-Trace mg/dL Urine Ketones Negative Negative mg/dL Nitrite Urine Negative Negative Leukocyte Esterase Urine Negative Negative RBC Urine 0-2 0-2 /HPF WBC Urine 0-5 0-5 /HPF Squamous Epithelial Cell Urine 0-2 0-2 /HPF Bacteria Urine None Seen None Seen Hyaline Casts Urine 0-2 0-2 /LPF REASON FOR VISIT COMP EXAM Medications Medication SIG (Take, Route, Frequency, Duration) [...] BY MOUTH EVERY DAY for 90 Active levoFLOXacin 500 MG 1 tablet Orally Once a day Not-Taking Lisinopril 20 MG TAKE 1 TABLET BY DARIA TH EVERY DAY for 90 Active Atorvastatin Calcium 20 MG TAKE 1 TABLET BY MOUTH EVERY DAY Active Metoprolol Succinate ER 50 MG TAKE 1 TABLET BY MOUTH EVERY DAY for 90 Active Flecainide Acetate 100 MG 1 tablet Orall y twice a day Active Xarelto 20 MG 1 tablet with food Orally Once a day Active predniSONE 20 MG 2 tabs Orally Once a day Active Alfuzosin HCl ER 10 MG 1 tablet immediat brandon after the same meal Orally Once a day Active Social History Tobacco Use: [...] Status W/U Status Risk Notes Problem Sinusitis (95049406) Sinusitis (J32.9) Active confirmed Vital Signs Blood pressure systolic 162 mm Hg 07/16/20 25 Blood pressure diastolic 80 mm Hg 025 Height 73 in 07/16/2025 Weight 344 lbs 07/16/2025 BMI 45.38 kg/m2 07/16/2025 weight is up 6 pounds since 01-09-25 Encounters Encounter Location Date Provider Diagnosis Blue Acosta MD [address] [place] [address] [place] [phone] 07/16/2025 Blue Acosta Prediabetes R73.09 ; Essential hypertension I10 and Sinusitis J32.9 Assessments Encounter Date Diagnosis (ICD Code) Assessment Notes Treatment Notes Treatment Clinical Notes Section Notes 07/16/2025 Prediabetes (ICD-10 - R73.09) 07/16/2025 Essential hypertension (ICD-10 - I10) doing well 07/16/2025 Sinusitis (ICD-10 - J32.9) not having symptoma and ears are normal Plan Of Treatment Medication Medication Name Sig Start Date Stop Date Notes Mounjaro 2.5 MG/0.5ML as directed Subcut aneous weekly for 30 days 07/16/2025 Treatment Notes Assessment Notes Essential hypertension doing well Sinusitis not having symptoma and ears are normal Pending Test Test Name Order Date Microalbumin, Random 07/16/2025 UA ClnCatch+Micro w/rflx Cult 07/16/2025 Next Appt Details Follow Up: 4 Weeks, Reason: Provider Name:Blue garrido, 08/18/2025 09:00:00 AM, [address] [place] [address], [address], [phone], Provider Name:Blue garrido, 01/18/2026 07:30:00 AM, [address] [place] [address], [address], [phone], Provider Name:Blue garrido, 01/25/2026 09:00:00 AM, [address] [place] [address], [address], [phone], Provider Name:Blue garrido, 07/12/2026 07:00:00 AM, [address] [facility], [address], [place], [place], [phone], Provider Name:Blue Arechiga ier, 07/19/2026 08:30:00 AM, [address] [facility], [address], [place], [place], [phone], Progress Notes * Mahin AMBROCIO GDOB:[birth year] (69 yo M)Acc No.[id number]:07/16/2025 Patient: Mahin LAWRENCE Provider: Madan Acosta MD :1955 A ge:69 Y S ex:Male Date:07/16/2025 Address:[address] [place], [place] [phone] Subjective: * Chief Complaints: * 1 . COMP EXAM. * HPI: D epression Screening: has sinus infection. was put on levaquin but there is interaction. PHQ-9 L ittle interest or pleasure in [...] recent labs and follow up of chronnic issues. * ROS: G eneral/Constitutional: Change in appetite [...] d enies. H eadache?denies. * Medical History: c olonoscopy 04/2012 for rectal bleeding due in 10 years; Colonoscopy done 10/27/[address] Sanchez - repeat 5 years. 03/30/25 colonoscopy - Daniel repeat 5y. * Family History: F ather: alive 94 [...] retired. Pets: 1 cat. * Medications: T aking Alfuzosin HCl ER 10 MG Tablet Extended Release 24 Hour 1 tablet immediately after the same meal Orally Once a day , Taking predniSONE 20 MG Tablet 2 tabs Orally Once a day , Taking Xarelto 20 MG Tablet 1 tablet with food Orally Once a day , Taking Flecainide Acetate 100 MG Tablet 1 tablet Orally twice a day , Taking Metoprolol Succinate ER 50 MG Tablet Extended Release 24 Hour TAKE 1 TABLET BY MOUTH EVERY DAY , Taking Celecoxib 200 MG Capsule TAKE 1 CAPSULE BY MOUTH EVERY DAY , Taking Triamcinolone Acetonide 0.5 % Cream APPLY TO AFFECTED AREA TWICE A DAY EXTERNALLY FOR 30 DAYS , Taking Atorvastatin Calcium 20 MG Tablet TAKE 1 TABLET BY MOUTH EVERY DAY , Taking Lisinopril 20 MG Tablet TAKE 1 TABLET BY MOUTH EVERY DAY , Not-Taking/PRN levoFLOXacin 500 MG Tablet 1 tablet Orally Once a day , Not- Taking/PRN Morphine Sulfate 15 MG Tablet 1 tablet as needed Orally every 4 hrs , Not- Taking/PRN Cyclobenzaprine HCl 10 MG Tablet 1 tablet at bedtime as needed Orally Once a day , Not-Taking/PRN Meclizine HCl 25 MG Tablet [...] for pain. may repeat time 3 , Discontinued Gabapentin 300 MG Capsule 3 capsules qhs Orally Once a day hs , Discontinued traMADol HCl 50 MG Tablet 1 tablet Orally Once a day , Medication List reviewed and reconciled with the patient * Allergies: A moxil: Rash, Ambien: Hallucinations. Objective: * Vitals: H t: 73, Wt: [...] ng/ mL L ab:Hemoglobin A1c (Order Date - 07/10/2025) (Collection Date & [...] ? 3 . S inusitis - J32.9 Plan: * Treatment: 2. E ssential hypertension L AB: Microalbumin, Random (Collection Date & Time - 07/16/2025 08:00 AM) L AB: UA ClnCatch+Micro w/rflx Cult (Collection Date & Time - 07/16/2025 08:00 AM) Notes: doing well 3. S inusitis Notes: not having symptoma and ears are normal * Follow Up: 4 Weeks * * The named appointment provid er may or may not be the originator of this progress note, and it is not deemed complete until electronically signed by the appointment provider. Sign off status: Pending * Provider: Madan Acosta MD Date: Generated for Navjot Ayala/Kristy on: 12:31 PM EDT History and Physical Notes * HPI (History of Present Illness) Category Sub-Category Detail Notes Category Not es Symptom(s) patient is a 69 yo male here for review of recent labs and follow up of chronnic issues Depression Screening PHQ-9 Little inte rest or [...]
[2025-07-16 11:24] LABS: Appearance Urine Clear; Glucose Urine UA Negative (Negative); PH 6.5 (5.0-9.0); Specific Gravity - Urine 1.015 (1.005-1.025)
[2025-07-16 12:27] LABS: Microalbum/Creatinine Ratio Ur 8.7 ug/mg cr (<30)
--- OUTSIDE RECORDS SUMMARY | 2025-07-16 12:31 | XMS_ITS | Patient Health Record ---
Author Organization [facility] Address [address] [place] [id number] Care Team Providers Care Dock Or Pier Laborer Name Role Phone Blue Acosta MD Primary Care Provider Corby Michel [phone] Allergies Allergen (clinical drug ingredient) Drug/Non Drug [...] Status Risk Notes Problem Irritable bowel syndrome (66786646) Irritable bowel syndrome (K58.9) Active confirmed Problem 912427334 Encounter for screening for malignant neoplasm of colon (Z12.11) Active confirmed Problem 422997405 History of adenomatous polyp of colon (Z86.010) Active confirmed Problem Constipation (09466447) Constipation (K59.00) Active confirmed Problem Abdominal bloating (130232682) Abdominal bloating (R14.0) Active confirmed Problem [id number] Preprocedural examination (Z01.818) Active confirmed Problem 999599818 Long-term use of aspirin therapy (Z79.82) Active confirmed Problem Chronic constipation (620534370) Constipation, chronic (K59.00) Active confirmed Problem Benign neoplasm of colon (97767647) Serrated adenoma of colon (D12.6) Active confirmed Problem Serrated polyp of colon (926844025) Serrated polyp of colon (K63.5) Active confirmed Vital Signs Blood pressure diastolic 11 mm Hg 12/11/2024 Height 74 in 12/11/2024 Blood pressure systolic 111 mm Hg 12/11/2024 Weight 337 lbs 12/11/2024 BMI 43.26 kg/m2 12/11/2024 Procedures Procedure Date Ordered Date Performed Result Body Sit e COLONOSCOPY 12/11/2024 N/A Encounters Encounter Location Date Provider Diagnosis [facility] [address], [place] [id number] 03/30/2025 Corby Sanchez Colon cancer screeni ng Z12.11 ; Personal history of adenomatous and serrated colon polyps Z86.0101 ; Diverticulosis of large intestine without perforation or abscess without bleeding K57.30 and Other hemorrhoids K64.8 [facility] [address] [place] [phone] 12/11/2024 Corby Sanchez History of adenomato us polyp of colon Z86.010 ; Abdominal bloating R14.0 ; Encounter for screening for malignant neoplasm of colon Z12.11 ; Preprocedural examination Z01.818 ; Long-term use of aspirin therapy Z79.82 ; Serrated polyp of colon K63.5 ; Serrated adenoma of colon D12.6 and Irritable bowel syndrome K58.9 [facility] [address] [place] [phone] 12/11/2024 Corby Sanchez [facility] [address] [place] [phone] 02/24/2025 Corby Sanchez [facility] [address] [place] [phone] 03/26/2025 Corby Sanchez Assessments Encounter Date Diagnosis (ICD [...] advised him that he could try some jdtz-gib-uelhzeq simethicone to help with the bloating and [...] advised him that he could try some ikld-siv-frtfzub simethicone to help with the bloating and [...] advised him that he could try some fykv-fqf-moeimxn simethicone to help with the bloating and [...] advised him that he could try some kbpt-ztz-rzqrhnx simethicone to help with the bloating and [...] advised him that he could try some kqrt-byn-qcfeprw simethicone to help with the bloating and [...] advised him that he could try some zvdr-mqj-rjumrex simethicone to help with the bloating and [...] advised him that he could try some kssu-lzp-jenkvdg simethicone to help with the bloating and [...] advised him that he could try some ckig-eog-zputklk simethicone to help with the bloating and [...] End Date MEDICARE OF [place] [address] [place] [address] [id number] LUISITO KYRIE Self - patient is the insured [employer] ([employer] [address] [place] [address] [id number] KYRIE JORGE Self - patient is [...]
--- OUTSIDE RECORDS SUMMARY | 2025-07-16 12:31 | XMS_ITS | Patient Health Record ---
Author Organization [facility] hallie Shobonier Address [address] [place] [address] Care Team Providers Care Export Clerk Name Role Phone Blue Acosta MD Primary Care Provider Milli Jimenez Unavailable [phone] Allergies Allergen (clinical drug ingredient) Drug/Non Drug [...] W/U Status Risk Notes Problem Tinea unguium (741843106) Tinea unguium (B35.1) Active confirmed Problem Acquired hammer toe of left foot (4035423386507647 ) Other hammer toe(s) (acquired), left foot (M20.42) Active confirmed Problem Localized, primary osteoarthritis of the ankle and/or foot (865122282) Arthritis of joint of lesser toe, left [...] X ray : Foot, left 3V 05/06/2024 [id number] NAIL, 1-5 08/17/2023 15742-CRTJHUA NAIL, 1-5 03/31/2016 57334- Debride <25 sq cm 09/02/2013 03675- Debride <25 sq cm 08/17/2023 19432-HZMXUGB SKIN/TISSUE 07/07/2013 27187-VUCJMTN SKIN/TISSUE 07/22/2013 58435-WKORMSL SKIN/TISSUE 08/12/2013 Insurance Providers Payer Name Payer Address Payer Phone Subscriber Number Group Number Insured Name Patient Relationship to Insured Coverage Start Date Coverage End Date [employer] [address] [facility] [place] [address] [phone] [id number] Mahin Ha Self - patient is the insured [facility] ([facility] [address] [place] [address] [id number] Mahin Ha Self - patient is [...]
--- OUTSIDE RECORDS SUMMARY | 2025-07-16 12:32 | XMS_ITS | Patient Health Record ---
Author Organization Blue Acosta MD Address [address] [place], [place] [id number] Care Team Providers Care General Office Associate Name Role Phone Blue Acosta Primary Care Provider Allergies Allergen (clinical drug ingredient) Drug/Non Drug Allergy documented on EMR Reaction Allergy Type Onset Date Status zolpidem ambien (uncoded) hallucinations Allergy Active amoxil (uncoded) rash Allergy Act dick Results Component Value Reference Range Notes Liver Panel Reviewed date:01/02/2025 12:30:46 PM Interpretation: Performing Lab:[facility], [address] [place] [phone] Notes/Report: Bilirubin Total 0.6 0.0-1.0 mg/dL Bilirubin Direct 0.3 0.0-0.5 mg/dL Aspartate Amino Transferase 29 5-37 U/L Alanine Aminotransferase 22 0-40 U/L Total Protein 7.6 6.5-8.0 g/dL Albumin Level 3.9 3.5-5.0 g/dL Alkaline Phosphatase 80 39-117 U/L Glucose Fasting Reviewed date:01/02/2025 12:30:54 PM Interpretation: Performing Lab:[facility], [address] [place] [phone] Notes/Report: Glucose Fasting 118 60-99 mg/dL A fasting glucose from 100-125 mg/dl is considered impaired (pre-diabetes). Lipid Panel with Reflex Reviewed date:01/02/2025 12:31:05 PM Interpretation: Performing Lab:[facility], [address] [place] [phone] Notes/Report: Triglycerides 118 <150 mg/dL Desirable Triglyceride: [...] A1c Reviewed date:01/03/2025 06:16:13 PM Interpretation: Performing Lab:[address] [phone] Notes/Report: Hemoglobin A1c % 5.6 <6.0 % [...] average glucose, using the formula of the Y0H-Sufyprv Average Glucose study (ADAG), Diabetes Care, Vol.31,#8, May. 2007 Complete Blood Count Auto Di ff Reviewed date:07/10/2025 12:29:22 PM Interpretation: Performing Lab:[facility], [address] [place] [phone] Notes/Report: White Blood Count 10.2 4.8-10.8 X10*3/uL [...] Panel Reviewed date:07/10/2025 12:29:39 PM Interpretation: Performing Lab:[facility], [address] [place] [phone] Notes/Report: Triglycerides 98 <150 mg/dL Desirable Triglyceride: [...] (Free>4and<10) Reviewed date:07/10/2025 12:29:01 PM Interpretation: Performing Lab:[address] [address] Notes/Report: PSA,Total (Free>4and<10) 0.26 0.00-4.00 ng/mL A [...] A1c Reviewed date:07/10/2025 12:28:51 PM Interpretation: Performing Lab:[address] [address] Notes/Report: Hemoglobin A1c % 6.1 <6.0 % [...] average glucose, using the formula of the B4M-Zqxbtcl Average Glucose study (ADAG), Diabetes Care, Vol.31,#8, May. 2007 Microalbumin, Random (Not ye t reviewed by provider) Interpretation: Performing Lab:[address] [address] Notes/Report: Creatinine Urine 91.72 Microalbumin Urine 8.0 Microalbum/Creatinine Ratio Ur 8.7 <30 ug/mg cr Albumin/Creatinine Ratio Reference Ranges: Normal: < 30 ug/mg creatinine Microalbuminuria: 30 - 300 ug/mg creatinine Clinical Albuminuria: > 300 ug/mg creatinine UA ClnCatch+Micro w/rflx Cul t (Not yet reviewed by provider) Interpretation: Performing Lab:[facility], [address] [place] [phone] Notes/Report: Urine, Clean Catch Color Urine Yellow Appearance Urine Clear PH 6.5 5.0-9.0 Glucose Urine UA Negative Negative mg/dL Urine Blood Negative Negative Specific [place] - Urine 1.015 1.005-1.025 Urine Protein Negative Neg-Trace mg/dL Urine Ketones Negative Negative mg/dL Nitrite Urine Negative Negative Leukocyte Esterase Urine Negative Negative RBC Urine 0-2 0-2 /HPF WBC Urine 0-5 0-5 /HPF Squamous Epithelial Cell Urine 0-2 0-2 /HPF Bacteria Urine None Seen None Seen Hyaline Casts Urine 0-2 0-2 /LPF Hold Gold Reviewed date:01/02/2025 12:23:00 PM Interpretation: Performing Lab:[facility], [address] [place] [phone] Notes/Report: Johnie Milner See Note Specimen held untested for 24 hours; Call to request Chemistry testing. Complete Blood Count Auto Di ff Reviewed date:01/06/2025 08:02:47 PM Interpretation: Performing Lab:[facility], [address] [place] [phone] Notes/Report: White Blood Count 12.8 4.8-10.8 X10*3/uL [...] Panel Reviewed date:01/06/2025 08:04:15 PM Interpretation: Performing Lab:[facility], [address] [place] [phone] Notes/Report: Sodium 140 135-145 mmol/L Potassium 4.1 [...] Magnesium Reviewed date:01/06/2025 07:58:26 PM Interpretation: Performing Lab:[address] [phone] Notes/Report: Magnesium 1.8 1.6-2.6 mg/dL Lipase Reviewed date:01/06/2025 07:58:34 PM Interpretation: Performing Lab:[address] [address] Notes/Report: Lipase 23 8-78 U/L CT NG by PCR Reviewed date:01/07/2025 02:59:49 PM Interpretation: Performing Lab:[address] [phone] Notes/Report: Urine CT PCR NOT DETECTED Not [...] Cult Reviewed date:01/08/2025 04:41:34 PM Interpretation: Performing Lab:[address] [address] Notes/Report: Urine, Clean Catch Color Urine Yellow Appearance Urine Clear PH 5.5 5.0-9.0 Glucose Urine UA Negative Negative mg/dL Urine Blood Negative Negative Specific [place] - Urine 1.015 1.005-1.025 Urine Protein Negative Neg-Trace mg/dL Urine Ketones Negative Negative mg/dL Nitrite Urine Negative Negative Leukocyte Esterase Urine Negative Negative CT abdomen pelvis wo con Reviewed date:01/06/2025 08:03:52 PM Interpretation: Performing Lab: Notes/Report: [address] [address] [address] Scan Report Signed Patient: Mahin Ambrocio MR#: [id number] 045 : 1955 Acct:[id number] Age/Sex: 69 / M ADM Date: 01/06/25 Loc: HO.ED Attending Dr: Ordering Physician: Cristina Birmingham Date of Service: 01/06/25 Procedure(s): CT abdomen pelvis wo IV con Accession Number(s): [id number] cc: Blue Acosta MD; Cristina Birmingham Report Number: [id number]: Total DLP = 1401.00 mGy-cm EXAMINATION: CT [...] 01/06/25 1414 DD/ 1310 TD/TT: 01/06/25 1402 Sealer Dry Cell: [place] [address] CT Scan Report Signed Patient: Ziyad Ambrocio in G MR#: [id number] 045 : 1955 Acct:[id number] Age/Sex: 69 / M ADM Date: 01/06/25 Loc: .ED Attending Dr: Ordering Physician: Cristina Birmingham Date of Service: 01/06/25 Procedure(s): CT abd omen pelvis wo IV con Accession Number(s): [id number] cc: Blue Acosta MD; Cristina Birmingham Report Number: [id number]: Total DLP = 1401.00 mGy-cm EXAMINATION: CT [...] 01/06/25 1414 DD/ 1310 TD/TT: 01/06/25 1402 Sealer [employer] Cell: US scrotum Reviewed date:01/07/2025 03:00:25 PM Interpretation: Performing Lab: Notes/Report: [address] [address] Ultrasound Report Signed Patient: Mahin Ambrocio MR#: [id number] 045 : 1955 Acct:[id number] Age/Sex: 69 / M ADM Date: 01/06/25 Loc: HO.ED Attending Dr: Ordering Physician: Omid Lopez MD Date of Service: 01/06/25 Procedure(s): US scrotum Accession Number(s): [id number] cc: Blue Acosta MD; Omid Lopez MD CLINICAL HISTORY: L testicular pain. Ultrasound scrotum. COMPARISON: None Technique: Real time sonographic imaging, including color-flow imaging, was performed by the software test engineer. Multiple dental sales representative static images were saved for review. [...] Bonilla MD in OV> 01/07/25 0804 DD/ 1816 TD/TT: 01/06/25 181 Se[employer] Cell: [place] [address] Ultrasound Report Signed Patient: Ziyad Ambrocio MR#: [id number] 045 : 1955 Acct:[id number] Age/Sex: 69 / M ADM Date: 01/06/25 Loc: .ED Attending Dr: Ordering Physician: Omid Lopze MD Date of Service: 01/06/25 Procedure(s): US scrotum Accession Number(s): [id number] cc: Blue Acosta MD; Omid Lopez MD CLINICAL HISTORY: L testicular pain. Ultrasound scrotum. COMPARISON: None Technique: Real time sonographic imaging, including color-flow imaging, was performed by the software test engineer. Multiple dental sales representative static images were saved for review. [...] OV> 01/07/25 0804 DD/ 15 TD/TT: 01/06/251815 Sealer Dry Cell: US scrotum doppler Reviewed date:01/06/2025 08:04:52 PM Interpretation: Performing Lab: Notes/Report: [address] [address] Ultrasound Report Signed Patient: Mahin Ambrocio MR#: [id number] 045 : 1955 Acct:[id number] Age/Sex: 69 / M ADM Date: 01/06/25 Loc: HO.ED Attending Dr: Ordering Physician: Louise Callejas Date of Service: 01/06/25 Procedure(s): US scrotum doppler Accession Number(s): [id number] cc: Blue Acosta MD; Louise Callejas CLINICAL HISTORY: L testicular pain. Ultrasound scrotum. COMPARISON: None Technique: Real time sonographic imaging, including color-flow imaging, was performed by the software test engineer. Multiple dental sales representative static images were saved for review. [...] in OV> 01/06/251815 DD/ 15 TD/TT: 01/06/251815 Sealer Dry Cell: [address] [address] Ultrasound Report Signed Patient: Ziyad Ambrocio MR#: [id number] 045 : 1955 Acct:[id number] Age/Sex: 69 / M ADM Date: 01/06/25 Loc: HO.ED Attending Dr: Ordering Physician: Louise Callejas Date of Service: 01/06/25 Procedure(s): US scr otum doppler Accession Number(s): [id number] cc: Blue Acosta MD; Louise Callejas CLINICAL HISTORY: L testicular pain. Ultrasound scrotum. COMPARISON: None Technique: Real time sonographic imaging, including color-flow imaging, was performed by the software test engineer. Multiple dental sales representative static images were saved for review. [...] in OV> 01/06/251815 DD/ 15 TD/TT: 01/06/251815 Sealer Dry Cell: XR chest 2V Reviewed date:01/13/2025 02:56:25 PM Interpretation: Performing Lab: Notes/Report: [address] [address] XRay Report Signed Patient: Mahin Ambrocio MR#: [id number] 045 : 1955 Acct:[id number] Age/Sex: 69 / M ADM Date: 01/09/25 Loc: HO.XRAY Attending Dr: Blue Acosta MD Ordering Physician: Blue Acosta MD Date of Service: 01/09/25 Procedure(s): XR chest 2V Accession Number(s): [id number] cc: Blue Acosta MD EXAMINATION: XR CHEST [...] 01/09/25 1059 DD/ 1000 TD/TT: 01/09/25 1010 Sealer Dry Cell: [address] [address] XRay Report Signed Patient: Ziyad Ambrocio MR#: [id number] 045 : 1955 Acct:[id number] Age/Sex: 69 / M ADM Date: 01/09/25 Loc: HOPradeepXRAY Attending Dr: Blue Acosta MD Ordering Physician: Blue Acosta MD Date of Service: 01/09/25 Procedure(s): XR isaias st 2V Accession Number(s): [id number] cc: Blue Acosta MD EXAMINATION: XR CHEST [...] 01/09/25 1059 DD/ 1000 TD/TT: 01/09/25 1010 Sealer Dry Cell: MR melina velazquez/simran bocanegra Reviewed date:02/17/2025 04:48:05 PM Interpretation: Performing Lab: Notes/Report: [address] [address] Magnetic Resonance Report Signed Patient: Mahin Ambrocio MR#: [id number] 045 : 1955 Acct:[id number] Age/Sex: 69 / M ADM Date: 02/16/25 Loc: HO.MRI Attending Dr: Jamey Rojas MD Ordering Physician: Jamey Rojas MD Date of Service: 02/16/25 Procedure(s): abdomen wo/w con Accession Number(s): [id number] cc: Blue Acosta MD; Jamey Rojas MD [...] signed by Wilfrid Houston MD in OV> 02/17/251310 DD/ 08 TD/TT: 02/17/251308 Sealer Dry Cell: [place] [address] Magnetic Resonance Report Signed Patient: Ziyad Ambrocio MR#: [id number] 045 : 1955 Acct:[id number] Age/Sex: 69 / M ADM Date: 02/16/25 Loc: HO.MRI Attending Dr: Jamey Rojas MD Ordering Physician: Jamey Rojas MD Date of Service: 02/16/25 Procedure(s): MR [place] wo/w con Accession Number(s): [id number] cc: Blue Acosta MD; Jamey Rojas MD [...] signed by Wilfrid Houston MD in OV> 02/17/251310 DD/ 08 TD/TT: 02/17/251308 Sealer [employer] Cell: XR lumbar spine 4V min Reviewed date:02/23/2025 12:34:44 PM Interpretation: Performing Lab: Notes/Report: [facility] [address] [place] [address] Drive [address] [place] [address] XRay Report Signed Patient: Mahin Ambrocio MR#: [id number] 045 : 1955 Acct:[id number] Age/Sex: 69 / M ADM Date: 02/20/25 Loc: HO.HOSX Attending Dr: Simon Solano MD, PhD Ordering Physician: Simon Solano MD, PhD Date of Service: 02/20/25 Procedure(s): XR lumbar spine 4V min Accession Number(s): [id number] cc: Blue Acosta MD; Simon Solano MD, PhD CLINICAL HISTORY: M43.16 - Spondylolisthesis, lumbar region 4 views lumbar spine Comparison: CT/IL/SR - CT ABDOMEN PELVIS WO [...] signed by Jenniffer Tinsley MD in OV> 02/23/25 0823 DD/ 1 TD/TT: 02/23/25821 Sealer Dry Cell: [facility] [address] [place] [address] [address] [place] [address] XRay Report Signed Patient: Ziyad Ambrocio MR#: [id number] 045 : 1955 Acct:[id number] Age/Sex: 69 / M ADM Date: 02/20/25 Loc: HO.HOSX Attending Dr: Richard Solano MD, PhD Ordering Physician: Simon Solano MD, PhD Date of Service: 02/20/25 Procedure(s): XR lum bar spine 4V min Accession Number(s): [id number] cc: Blue Acosta MD; Simon Solano MD, PhD CLINICAL HISTORY: M4 3.16 - Spondylolisthesis, lumbar region 4 views lumbar spine Comparison: CT/IL/SR - CT ABDOMEN PELVIS WO [...] in OV> 02/23/25822 DD/ 1 TD/TT: 02/23/25821 Sealer Dry Cell: US bladder Reviewed date:05/28/2025 12:37:23 PM Interpretation: Performing Lab: Notes/Report: [facility] [address] [place] [address] [place] [address] Ultrasound Report Signed Patient: Mahin Ambrocio MR#: [id number] 045 : 1955 Acct:[id number] Age/Sex: 69 / M ADM Date: 05/28/25 Loc: HO.HMGCX Attending Dr: Don Aj MD Ordering Physician: Don Aj MD Date of Service: 05/28/25 Procedure(s): US bladder Accession Number(s): [id number] cc: Don Aj MD; Blue Acosta MD CLINICAL HISTORY: N32.0 - Bladder-neck obstruction US bladder with color Doppler Comparison: US/IL - US SCROTUM DOPPLER - 01/06/25 17:[address]/IL/SR - CT ABDOMEN PELVIS WO IV [...] in OV> 05/28/25946 DD/ 5 TD/TT: 05/28/25945 Sealer Dry Cell: [facility] [address] [place] [address] [place] [address] Ultrasound Report Signed Patient: Ziyad Ambrocio MR#: [id number] 045 : 1955 Acct:[id number] Age/Sex: 69 / M ADM Date: 05/28/25 Loc: .HMGCX Attending Dr: Joselin Bach MD Ordering Physician: Don Aj MD Date of Service: 05/28/25 Procedure(s): US bladder Accession Number(s): [id number] cc: Don Aj MD; Blue Acosta MD CLINICAL HISTORY: N3 2.0 - Bladder-neck obstruction US bladder with colo r Doppler Comparison: US/IL - US SCROTUM DOPPLER - 01/06/25 17:[address]/IL/SR - CT ABDOME N PELVIS WO IV [...] in OV> 05/28/25946 DD/ 5 TD/TT: 05/28/25945 Sealer Dry Cell: Harshil Bates. Panel Reviewed date:07/10/2025 12:37:03 PM Interpretation: Performing Lab:[facility], [address] [place] [phone] Notes/Report: Sodium 142 135-145 mmol/L Potassium 4.2 [...] Duration) Notes Start Date End Date Status Triamcinolone Acetonide 0.5 % APPLY TO AFFECTED AREA TWICE A DAY EXTERNALLY FOR 30 DAYS for 30 Active Celecoxib 200 MG TAKE 1 CAPSULE BY MOUTH EVERY DAY for 90 Active Nitrostat 0.4 MG 1 tablet under the tongue and allow to dissolve as needed Sublingual every 15 min for pain. may repeat time 3 for 30 days 05/16/2012 Not-Taking Metoprolol Succinate ER 50 MG TAKE 1 TABLET BY MOUTH EVERY DAY for 90 Active ProAir HFA 108 (90 Base) MCG/ACT 2 puffs as needed Inhalation every 4 hrs for 30 days 11/20/2016 Not-Taking Flecainide Acetate 100 MG 1 tablet Orall y twice a day Active diazePAM 5 MG 1-2 tablet as needed Orally every 8 hours Not-Taking levoFLOXacin 500 MG 1 tablet Orally Once a day Not-Taking Lisinopril 20 MG TAKE 1 TABLET BY DARIA TH EVERY DAY for 90 Active Atorvastatin Calcium 20 MG TAKE 1 TABLET BY MOUTH EVERY DAY Active Mounjaro 2.5 MG/0.5ML as directed Subcutaneous weekly for 30 days 07/16/2025 Active Xarelto 20 MG 1 tablet with food Orally Once a day Active Mupirocin 2 % 1 application Externally Three times a day for 10 days 01/24/2021 Not-Taking predniSONE 20 MG 2 tabs Orally Once a day Active Meclizine HCl 25 MG TAKE 1 TABLET BY DARIA TH EVERY DAY NEEDED for 30 Not-Taking Alfuzosin HCl ER 10 MG 1 tablet immediat brandon after the same meal Orally Once a day Active Cyclobenzaprine HCl 10 MG 1 tablet at be dtime as needed Orally Once a day Not-Taking Morphine Sulfate 15 MG 1 tablet as neede d Orally every 4 hrs Not-Taking Immunizations Vaccine Route Administration Date Status Comme [...] Administered pt was given the vaccine at [facility] on [facility]. Fluarix Quadrivalent IM Intramuscular 06/24/2018 Administe red [...] Problem Status W/U Status Risk Notes Problem 691812705 Diverticulitis (K57.92) Active confirmed Problem Sinusitis (58785138) Sinusitis (J32.9) Active c onfirmed Problem 518560538 Mixed hyperlipidemia (E78.2) Active confirmed Problem 061034030 Paroxysmal atria l fibrillation (I48.0) Active confirmed Problem 52362322 Atherosclerosis of aorta (I70.0) Active confirmed Problem 61519339641034405 Acute recurren t frontal sinusitis (J01.11) Active confirmed Problem 883931649 Angina effort (I20.8) Active confirmed Problem 642218238 Lumbar disc disease (M51.9) Active confirmed Problem 167239645 Tubular adenoma of colon (D12.6) Active confirmed Problem 83226495 Essential hypertension (I10) Active confirmed Problem 7334931 Prediabetes (R73.09) Active confirmed Problem 079395870 Morbid obesity due to excess calories (E66.01) Active confirmed Problem 674935591 Cervical disc disease (M50.90) Active confirmed Problem 472356607 Hammertoe of lef t foot (M20.42) Active confirmed Vital Signs Blood pressure diastolic 80 mm Hg 07/16/2025 eliezer ght is up 6 pounds since 01-09-25 Height 73 in 07/16/2025 weight is up 6 pounds since 01-09-25 Blood pressure systolic 162 mm Hg 07/16/2025 weig ht is up 6 pounds since 01-09-25 Weight 344 lbs 07/16/2025 weight is up 6 pounds since 01-09-25 BMI 45.38 kg/m2 07/16/2025 weight is up 6 pounds since 01-09-25 Encounters Encounter Location Date Provider Diagnosis Blue Acosta MD [address] [place] [address] [place] [id number] 01/02/2025 Blue Acosta Mixed hyperlipidemia E78.2 and Prediabetes R73.09 Blue Acosta MD [address] [id number] 07/10/2025 Blue Acosta Mixed hyperlipidemia E78.2 ; Encounter for administration of vaccine Z23 ; Essential hypertension I10 and Prediabetes R73.09 Blue Acosta MD [address] [facility] [address] [id number] 07/16/2025 Blue Acosta Prediabetes R73.09 ; Essential hypertension I10 and Sinusitis J32.9 Blue Acosta MD [address] [place] [id number] 01/09/2025 Blue Acosta Pleural effusion J90 ; Lumbar disc disease with radiculopathy M51.16 ; Foot drop, left M21.372 ; Prediabetes R73.09 and Mixed hyperlipidemia E78.2 Blue Acosta MD [address] [place] [id number] 01/08/2025 Blue Acosta MD [address] [place] [address] [address] [id number] 01/12/2025 Blue Acosta MD [address] [place] [id number] 01/13/2025 Blue Puriardiladonna Pleural effusion J90 Assessments Encounter Date Diagnosis (ICD Code) Assessment Notes Treatment Notes Treatment Clinical Notes Section Notes 01/02/2025 Mixed hyperlipidemia (ICD-10 - E78.2) 07/10/2025 Mixed hyperlipidemia (ICD-10 - E78.2) 07/10/2025 Encounter for administration of vaccine (ICD-10 - Z23) 07/16/2025 Prediabetes (ICD-10 - R73.09) 07/16/2025 Essential hypertension (ICD-10 - I10) doing well 01/09/2025 Pleural effusion (ICD-10 - J90) pending diagnostic testing, THE ORDER WAS PRINTED AND GIVEN TO MAHIN 01/09/2025 Lumbar disc disease with radiculopathy (ICD-10 - M51.16) pending diagnstic testing, THE ORDER HAS BEEN FAXED TO [facility] FOR SCHEDULING 01/13/2025 Pleural effusion (ICD-10 - J90) Order made and put into the future order folder for . 01/02/2025 Prediabetes (ICD-10 - R73.09) 07/10/2025 Essential hypertension (ICD-10 - I10) 07/16/2025 Sinusitis (ICD-10 - J32.9) not having symptoma and ears are normal 01/09/2025 Foot drop, left (ICD-10 - M21.372) pending diagnostic testing 07/10/2025 Prediabetes (ICD-10 - R73.09) 01/09/2025 Prediabetes (ICD-10 - R73.09) stable, no need for medication at this time, will contiue to monitor 01/09/2025 Mixed hyperlipidemia (ICD-10 - E78.2) stable, will continue current regiment Plan Of Treatment Pending Test Test Name Order Date CT ABD & PELVIS WITH CONTRAST 09/07/2020 MRI LUMBAR SPINE NO CONTRAST 01/09/2025 XR CHEST 2 VIEW PA & LAT 01/09/2025 Comprehensive [place]. Panel Fast Microalbumin, Random 07/16/2025 Microalbumin, Random 07/10/2025 XR chest 2V 01/13/2025 UA ClnCatch+Micro w/rflx Cult 07/10/2025 UA ClnCatch+Micro w/rflx Cult 07/16/2025 Future Test Test Name Order Date CT ABD & PELVIS WITH CONTRAST 2020 Next Appt Details Provider Name:Blue garrido, 08/18/2025 09:00:00 AM, [address] [place] [address], [address] [place] [address], [phone], Provider Name:Blue garrido, 01/18/2026 07:30:00 AM, [address] [place] [address], Suite [facility], [place], [place], [phone], Provider Name:Blue garrido, 01/25/2026 09:00:00 AM, [address] [place] [address], Suite [facility], [place], [place], [phone], Provider Name:Blue garrido, 07/12/2026 07:00:00 AM, [address] [facility] [address], [address], [place], [place], [phone], Provider Name:Blue Arechiga candidor, 07/19/2026 08:30:00 AM, [address] [facility] [address], [address], [place], [place], [phone], Insurance Providers Payer Name Payer Address Payer Phone Subscriber Number Group Number Insured Name Patient Relationship to Insured Coverage Start Date Coverage End Date MEDICARE NHIC SOL [address] [place] [address] [id number] Mahin Ambrocio Self - patient is the insured [facility] [address] [place] [address] [id number] Mahin Ambrocio Self - patient is the insured Medical (General) History Medical History History ICD Code colonoscopy 04/2012 for recta l bleeding due in 10 years; Colonoscopy done 10/27/[address] Sanchez - repeat 5 years. 03/30/25 colonoscopy - Daniel repeat 5y
== END 2025-07-16 10:44 | disposition home or self-care (01) ==
LOC: HO.LNP 10:43
PROVIDERS: Visit Provider Internal Medicine
DX: I10 Essential (primary) hypertension (principal); R73.01 Impaired fasting glucose
CPT/HCPCS: 81001; 82043; 82570

== ENCOUNTER 2025-08-02 11:51 | Emergency (ER) | payer MEDICARE, OTHER, SELFPAY ==
--- OUTSIDE RECORDS SUMMARY | 2024-04-09 11:15 | XMS_ITS ---
Author Organization [facility] Address [address] [place] [address] Care Team Providers Care Varnish Maker Helper Name Role Phone Blue Acosta MD Primary Care Provider Milli Jimenez Unavailable [phone] Camara Encounters Encounter Location Date Provider Diagnosis [facility] [address] [place] [address] 04/09/2024 Milli Yost Plan Of Treatment No Information Progress Notes * Mahin JORGE GDOB:[birth year] (69 yo M)Acc No.[id number]:04/09/2024 Progress Note Patient: Mahin ALWRENCE Provider: Harjit Yost DPM :1955 A ge:68 Y S ex:Male Date:04/09/2024 Address: [place], [id number] Pcp:Blue Acosta MD Subjective: * Chief Complaints: [...] 04/09/2024 Generated for Navjot mccall/Janay/Kristy on: 1 12:28 PM EDT
--- OUTSIDE RECORDS SUMMARY | 2024-04-11 05:34 | XMS_ITS ---
Author Organization Blue Acosta MD Address [address] [place] [address] [place] [id number] Care Team Providers Care Printing And Stamping Supervisor Name Role Phone Blue Acosta Primary Care Provider [phone] REASON FOR VISIT Xarelto Encounters Encounter Location Date Provider Diagnosis Blue Acosta MD [address] [place] [address] [place] [id number] 04/11/2024 Blue Acosta Plan Of Treatment Next Appt Details Provider Name:Blue garrido, 08/18/2025 09:00:00 AM, [address] [place] [address], [address], [id number], Provider Name:Blue garrido, 01/18/2026 07:30:00 AM, [address] [place] [address], [address], [id number], Provider Name:Blue garrido, 01/25/2026 09:00:00 AM, [address] [place] [address], [address], [id number], Provider Name:Blue garrido, 07/12/2026 07:00:00 AM, [address] [place] [address], [id number], Provider Name:Blue garrido, 07/19/2026 08:30:00 AM, [address] [place] [address], [id number], Progress Notes * Mahin AMBROCIO GDOB:[birth year] (68 yo M)Acc No.[id number]:04/11/2024 Patient: Mahin Galdamez :1955 A ge:68 Y S ex:Male Address:[address] [place] [id number] * true * Date: Generated for Navjot mccall/Janay/Dietersmitting on: 12:30 PM EDT
--- OUTSIDE RECORDS SUMMARY | 2024-04-23 06:00 | XMS_ITS ---
Author Organization [facility] Address [address] [facility] [place] [address] Care Team Providers Care Private Branch Exchange Operator Name Role Phone Karla PAZ, Blue Primary Care Provider UnaMilli Barrett Unavailable [phone] Encounters Encounter Location Date Provider Diagnosis Surgery [facility] ([facility]) [address] [place] [phone] 04/23/2024 Milli Yost Plan Of Treatment No Information Progress Notes * Mahin JORGE GDOB:[birth year] (69 yo M)Acc No.[id number]:04/23/2024 Patient: Mahin LAWRENCE Provider: Harjit Yost DPM [...]
--- OUTSIDE RECORDS SUMMARY | 2024-07-03 03:30 | XMS_ITS ---
Author Organization Blue Acosta MD Address [address] [place], [place] [id number] Care Team Providers Care Property Disposal Manager Name Role Phone Blue Acosta Primary Care Provider Results Component Value Reference Range Notes Complete Blood Count Auto Di ff Reviewed date:07/03/2024 05:03:13 PM Interpretation: Performing Lab:[facility], [address] [place] [phone] Notes/Report: White Blood Count 8.5 4.8-10.8 X10*3/uL [...] NRBC Abs Auto 0.000 0.0-0.012 X10*3/uL Comprehensive [place]. Panel Fa st Reviewed date:07/03/2024 12:20:41 PM Interpretation: Performing Lab:[facility], [address] [place] [phone] Notes/Report: Sodium 140 135-145 mmol/L Potassium 4.2 3.3-5.1 mmol/L Chloride 105 96-108 mmol/L Carbon Dioxide 28 22-29 mmol/L Anion Gap 11 12-20 Blood Urea Nitrogen 16 9-16 mg/dL Creatinine 0.91 0.5-1.4 mg/dL Estimated Glomerular Filt Rate > 60 NOTE: For -Prydeinig individuals, multiply the result by 1.210. Chronic [...] Panel Reviewed date:07/03/2024 12:16:21 PM Interpretation: Performing Lab:[facility], [address] [place] [phone] Notes/Report: Triglycerides 103 <150 mg/dL Desirable Triglyceride: [...] (Free>4and<10) Reviewed date:07/03/2024 12:17:59 PM Interpretation: Performing Lab:[address] [phone] Notes/Report: PSA,Total (Free>4and<10) 0.31 0.00-4.00 ng/mL A [...] Random Reviewed date:07/03/2024 12:30:42 PM Interpretation: Performing Lab:[facility], [address] [place] [phone] Notes/Report: Creatinine Urine 52.54 Microalbumin Urine < 5.0 Microalbum/Creatinine Ratio Ur TNP <30 ug/mg cr Unable to calculate albumin/creatinine ratio due to low microalbumin or creatinine result. Hemoglobin A1c Reviewed date:07/03/2024 12:16:31 PM Interpretation: Performing Lab:[address] [phone] Notes/Report: Hemoglobin A1c % 5.6 <6.0 % [...] average glucose, using the formula of the N6F-Sipoaby Average Glucose study (ADAG), Diabetes Care, Vol.31,#8, May. 2007 UA ClnCatch+Micro w/rflx Cul t Reviewed date:07/03/2024 12:27:43 PM Interpretation: Performing Lab:[facility], [address] [place] [phone] Notes/Report: Urine, Clean Catch Color Urine Yellow Appearance Urine Clear PH 5.5 5.0-9.0 Glucose Urine UA Negative Negative mg/dL Urine Blood Negative Negative Specific [place] - Urine 1.010 1.005-1.025 Urine Protein Negative [...] Date Provider Diagnosis Blue Acosta MD [address] [facility] [address] [place], [place] [id number] 07/03/2024 Blue Acosta Mixed hyperlipidemia E78.2 ; [...] 09:00:00 AM, [address], [address], [place], [place], [id number], Provider Name:Blue Arechiga ier, 01/18/2026 07:30:00 AM, [address], [address], [place], [id number], Provider Name:Blue Arechiga ier, 01/25/2026 09:00:00 AM, [address], [address], [place], [id number], Provider Name:Blue Arechiga ier, 07/12/2026 07:00:00 AM, [address], Suite [facility], [place], [id number], Provider Name:Blue Arechiga ier, 07/19/2026 08:30:00 AM, [address] [facility], Suite [facility], [place], [id number], Progress Notes * Mahin AMBROCIO GDOB:[birth year] (69 yo M)Acc No.[id number]:07/03/2024 Progress Note Patient: Mahin LAWRENCE Provider: Madan Acosta MD :1955 A ge:68 Y S ex:Male Date:07/03/2024 Address:[address] [place] [address] Subjective: * Chief Complaints: * 1 . [...] - 07/03/2024 07:30 AM) L AB: Comprehensive [place]. Panel Fast (Collection Date & Time - [...] - 07/03/2024 07:30 AM) L AB: Comprehensive [place]. Panel Fast (Collection Date & Time - [...] FLU VAC NO FEE SCHED SAME DAY, [id number] VENIPUNCT, ROUTINE* * * The named appointment provid er may or may not be the originator of this progress note, and it is not deemed complete until electronically signed by the appointment provider. Sign off status: Pending * Provider: Madan Acosta MD Date: 0 07/03/2024 Generated for Navjot mccall/Janay/Tanoitting on: 1 12:31 PM EDT
--- OUTSIDE RECORDS SUMMARY | 2024-07-10 07:00 | XMS_ITS ---
Author Organization Blue Acosta MD Address [address] [place], [place] [phone] Care Team Providers Care Hog Confinement System Manager Name Role Phone Blue Acosta Primary [...] Location Date Provider Diagnosis Blue Acosta MD [address] [place] [address] [place] [phone] 07/10/2024 Blue Acosta Essential hypertensi on I10 [...] Lisinopril 20 MG TAKE 1 TABLET BY ADRIA TH EVERY DAY Flecainide Acetate 100 MG [...] Reason: Provider Name:Blue garrido, 08/18/2025 09:00:00 AM, [address] [place] [address], [address], [phone], Provider Name:Blue garrido, 01/18/2026 07:30:00 AM, [address] [place] [address], [address], [phone], Provider Name:Blue garrido, 01/25/2026 09:00:00 AM, [address] [place] [address], [address], [phone], Provider Name:Blue garrido, 07/12/2026 07:00:00 AM, [address] [place] [address], [address], [phone], Provider Name:Blue garrido, 07/19/2026 08:30:00 AM, [address] [place] [address], [address], [phone], Progress Notes * Mahin AMBROCIO GDOB:[birth year] (68 yo M)Acc No.[id number]:07/10/2024 Patient: Mahin Galdamez Provider: Madan Acosta MD :1955 A ge:68 Y S ex:Male Date:07/10/2024 Address:[address] [place], [place] [phone] Subjective: * Chief Complaints: * R eview [...] 1 cat. no Travel outside of the [facility], [facility]. * Medications: T akingGabapentin 300 MG Capsule [...] mg/dL Urine Blood Negative Negative - Specific [place] - Urine 1.010 1.005-1.025 - Urine Protein [...] Urine 0-2 0-2 - /LPF L ab:Comprehensive [place]. Panel Fast (Order Date - 07/03/2024) (Collection [...] 07/10/2024 Generated for Navjot mccall/Janay/Dietersmitting on: 1 12:28 PM EDT History and Physical Notes * [...]
--- OUTSIDE RECORDS SUMMARY | 2025-01-02 04:00 | XMS_ITS ---
Author Organization Blue Acosta MD Address [address] [place], [place] [phone] Care Team Providers Care Site Controller Name Role Phone Blue Acosta Primary Care Provider Results Component Value Reference Range Notes Liver Panel Reviewed date:01/02/2025 12:30:46 PM Interpretation: Performing Lab:[address] [address] Notes/Report: Bilirubin Total 0.6 0.0-1.0 mg/dL Bilirubin Direct 0.3 0.0-0.5 mg/dL Aspartate Amino Transferase 29 5-37 U/L Alanine Aminotransferase 22 0-40 U/L Total Protein 7.6 6.5-8.0 g/dL Albumin Level 3.9 3.5-5.0 g/dL Alkaline Phosphatase 80 39-117 U/L Glucose Fasting Reviewed date:01/02/2025 12:30:54 PM Interpretation: Performing Lab:[address] [phone] Notes/Report: Glucose Fasting 118 60-99 mg/dL A fasting glucose from 100-125 mg/dl is considered impaired (pre-diabetes). Lipid Panel with Reflex Reviewed date:01/02/2025 12:31:05 PM Interpretation: Performing Lab:[address] [phone] Notes/Report: Triglycerides 118 <150 mg/dL Desirable Triglyceride: [...] A1c Reviewed date:01/03/2025 06:16:13 PM Interpretation: Performing Lab:[facility], [address] [place] [phone] Notes/Report: Hemoglobin A1c % 5.6 <6.0 % [...] average glucose, using the formula of the A2K-Xdhdovt Average Glucose study (ADAG), Diabetes Care, Vol.31,#8, May. 2007 REASON FOR VISIT FASTING LIPIDS Encounters Encounter Location Date Provider Diagnosis Blue Acosta MD [address] [place] [address] [place] [phone] 01/02/2025 Blue Acosta Mixed hyperlipidemia E78.2 and Prediabetes R73.09 Assessments Encounter Date Diagnosis (ICD Code) Assessment Notes Treatment Notes Treatment Clinical Notes Section Notes 01/02/2025 Mixed hyperlipidemia (ICD-10 - E78.2) 01/02/2025 Prediabetes (ICD-10 - R73.09) Plan Of Treatment Next Appt Details Provider Name:Blue garrido, 08/18/2025 09:00:00 AM, [address] [place] [address], Suite [facility], [place], [place], [phone], Provider Name:Blue garrido, 01/18/2026 07:30:00 AM, [address], [address], [place], [phone], Provider Name:Blue Arehciga ier, 01/25/2026 09:00:00 AM, [address], [address], [place], [phone], Provider Name:Blue Arechiga ier, 07/12/2026 07:00:00 AM, [facility], [address], [place], [place], [phone], Provider Name:Blue Arechiga ier, 07/19/2026 08:30:00 AM, [address] [facility] [address], [address], [place], [place], [phone], Progress Notes * Mahin AMBROCIO GDOB:[birth year] (69 yo M)Acc No.[id number]:01/02/2025 Progress Note Patient: Mahin LAWRENCE Provider: Madan Acosta MD :1955 A ge:69 Y S ex:Male Date:01/02/2025 Address:[address] [place], [place] [phone] Subjective: * Chief Complaints: * 1 . [...] 01/02/2025 Generated for Navjot mccall/Janay/Kristy on: 1 12:28 PM EDT
--- OUTSIDE RECORDS SUMMARY | 2025-01-08 16:26 | XMS_ITS ---
Author Organization Blue Acosta MD Address [address] [place] [address] [place] [address] [phone] Care Team Providers Care Account Collector Name Role Phone Blue Acosta Primary Care Provider REASON FOR VISIT ER Encounters Encounter Location Date Provider Diagnosis Blue Acosta MD [address] [place] [address] [place] [address] [phone] 01/08/2025 Blue Acosta Plan Of Treatment Next Appt Details Provider Name:Blue garrido, 08/18/2025 09:00:00 AM, [address] [place] [address], [address], [phone], Provider Name:Blue garrido, 01/18/2026 07:30:00 AM, [address] [place] [address], [address], [phone], Provider Name:Blue garrido, 01/25/2026 09:00:00 AM, [address] [place] [address], [address], [phone], Provider Name:Blue garrido, 07/12/2026 07:00:00 AM, [address] [place] [address], [address], [phone], Provider Name:Blue garrido, 07/19/2026 08:30:00 AM, [address] [place] [address], [phone], Progress Notes * Mahin AMBROCIO GDOB:[birth year] (69 yo M)Acc No.[id number]:01/08/2025 Patient: Mahin LAWRENCE :1955 A ge:69 Y S ex:Male Address:[address] [place], [place] [phone] * true * Date: Generated for Navjot mccall/Janay/Tanoitting on: 12:29 PM EDT
--- OUTSIDE RECORDS SUMMARY | 2025-01-09 05:15 | XMS_ITS ---
Author Organization Blue Acosta MD Address [address] [place], [place] [phone] Care Team Providers Care Drop Hammer Pile Driver Operator Name Role Phone Blue Acosta Primary Care Provider [phone] Allergies Allergen (clinical drug ingredient) Drug/Non Drug [...] kg/m2 01/09/2025 weight is down 6 pounds [facility] e 07-10-24 Encounters Encounter Location Date Provider Diagnosis Blue Acosta MD [address] [place] [address] [address] [place], [place] [phone] 01/09/2025 Blue Acosta Pleural effusion J90 ; [...] testing, THE ORDER HAS BEEN FAXED TO [facility] FOR SCHEDULING 01/09/2025 Foot drop, left (ICD-10 [...] testing, THE ORDER HAS BEEN FAXED TO [facility] FOR SCHEDULING Foot drop, left pending diagnostic t esting Prediabetes stable, no need for medication at this time, will contiue to monitor Mixed hyperlipidemia stable, will contin ue current regiment Pending Test Test Name Order Date MRI LUMBAR SPINE NO CONTRAST 01/09/2025 XR CHEST 2 VIEW PA & LAT 01/09/2025 Next Appt Details Provider Name:Blue Arechiga ier, 08/18/2025 09:00:00 AM, [address] [place] [address], [address] [place] [address], [phone], Provider Name:Blue Arechiga ier, 01/18/2026 07:30:00 AM, [address] [place] [address], [address] [place] [address], [phone], Provider Name:Blue Arechiga ier, 01/25/2026 09:00:00 AM, [address] [place] [address], [address], [phone], Provider Name:Blue Arechiga ier, 07/12/2026 07:00:00 AM, [address] [place] [address], [address] [place] [address], [phone], Provider Name:Blue Arechiga ier, 07/19/2026 08:30:00 AM, [address] [place] [address], [address] [place] [address], [phone], Progress Notes * Kyrie AMBROCIO GDOB:[birth year] (69 yo M)Acc No.[id number]:01/09/2025 Progress Notes Patient: Kyrie LAWRENCE Provider: Madan Acosta MD :1955 A ge:69 Y S ex:Male Date:01/09/2025 Address:[address] [place], [place] [phone] Subjective: * Chief Complaints: * 6 MO [...] testing, THE ORDER HAS BEEN FAXED TO [facility] FOR SCHEDULING 3. F oot [...] 01/09/2025 Generated for Navjot mccall/Janay/Tanoitting on: 1 12:28 PM EDT History and [...]
--- OUTSIDE RECORDS SUMMARY | 2025-01-12 04:57 | XMS_ITS ---
Author Organization Blue Acosta MD Address [address] [place] [address] [place] [phone] Care Team Providers Care Line Director Name Role Phone Blue Acosta Primary Care Provider [phone] REASON FOR VISIT MRI order Encounters Encounter Location Date Provider Diagnosis Blue Acosta MD [address] [place] [address] [place] [phone] 01/12/2025 Blue Acosta Plan Of Treatment Next Appt Details Provider Name:Blue garrido, 08/18/2025 09:00:00 AM, [address] [place] [address], [address], [phone], Provider Name:Blue garrido, 01/18/2026 07:30:00 AM, [address] [place] [address], [address], [phone], Provider Name:Blue garrido, 01/25/2026 09:00:00 AM, [address] [place] [address], [address], [phone], Provider Name:Blue garrido, 07/12/2026 07:00:00 AM, [address] [place] [address], [phone], Provider Name:Blue garrido, 07/19/2026 08:30:00 AM, [address] [place] [address], [phone], Progress Notes * Mahin AMBROCIO GDOB:[birth year] (69 yo M)Acc No.[id number]:01/12/2025 Patient: Mahin LAWRENCE :1955 A ge:69 Y S ex:Male Address:[address] [place] [phone] * true * Date: Generated for Navjot mccall/Janay/Dietersmitting on: 12:31 PM EDT
--- OUTSIDE RECORDS SUMMARY | 2025-01-13 10:52 | XMS_ITS ---
Author Organization Blue Acosta MD Address [address] [place] [address] [place] [phone] Care Team Providers Care Junior Business Analyst Name Role Phone Blue Acosta Primary Care Provider REASON FOR VISIT Repeat CXR Encounters Encounter Location Date Provider Diagnosis Blue Acosta MD [address] [place] [phone] 01/13/2025 Blue Acosta Pleural effusion J90 Assessments [...] Details Provider Name:Blue garrido, 08/18/2025 09:00:00 AM, [address] [place] [address], [address], [phone], Provider Name:Blue garrido, 01/18/2026 07:30:00 AM, [address] [place] [address], [address], [phone], Provider Name:Blue garrido, 01/25/2026 09:00:00 AM, [address] [place] [address], [address], [phone], Provider Name:Blue garrido, 07/12/2026 07:00:00 AM, [address], [address], [place], [place], [phone], Provider Name:Blue Arechiga ier, 07/19/2026 08:30:00 AM, [address], [address], [place], [place], [phone], Progress Notes * Mahin AMBROCIO GDOB:[birth year] (69 yo M)Acc No.[id number]:01/13/2025 Patient: Yanick COLEMANMahin MORLEY :1955 A ge:69 Y S ex:Male Address:[address] [place] [address] Subjective: * Chief Complaints: * R epeat CXR * Medical History: * Surgical History: * Hospitalization/Major Diagno stic Procedure: * Medications: Objective: * Vitals: * Physical Examination: Assessment: * Assessment: 1. P leural effusion - J90 Plan: * Treatment: * Procedure Codes: * true * Date: Generated for Navjot mccall/Janay/eTransmitting on: 12:29 PM EDT
--- OUTSIDE RECORDS SUMMARY | 2025-03-20 05:30 | XMS_ITS ---
Author Organization [facility] Address [address] [place] [address] Care Team Providers Care Cigarette Packer Name Role Phone Blue Acosta MD Primary Care Provider Corby Michel [phone] REASON FOR VISIT screening Encounters Encounter Location Date Provider Diagnosis [facility] [place] [address] [place] [id number] 03/20/2025 Corby Sanchez Plan Of Treatment No Information Progress Notes * JORGE KYRIE GDOB:[birth year] (69 yo M)Acc No.[id number]:03/20/2025 COLON WITH MAC Patient: KYRIE LAWRENCE Provider: Del Sanchez MD :1955 A ge:69 Y S ex:Male Date:03/20/2025 Address:[address] [place], [place] [phone] Pcp:Blue Acosta MD Subjective: * Chief Complaints: [...] 03/20/2025 Generated for Printi ng/Faxing/eTransmitting on: 1 12:30 PM EDT
--- OUTSIDE RECORDS SUMMARY | 2025-03-30 09:10 | XMS_ITS ---
Author Organization [facility] Address [address] [place] [phone] Care Team Providers Care Atm Manager Name Role Phone Blue Acosta MD Primary Care Provider Corby Michel [phone] Encounters Encounter Location Date Provider Diagnosis [facility] [place] [address] [place] [phone] 03/30/2025 Corby Sanchez Colon cancer scree ascencion [...] KYRIE JORGE GDOB:[birth year] (69 yo M)Acc No.[id number]:03/30/2025 COLON WITH MAC Patient: Yanick COLEMANPEYMAN KYRIE G Provider: Del Sanchez MD :1955 A ge:69 Y S ex:Male Date:03/30/2025 Address:[address] [place], [place] [phone] Pcp:Blue Acosta MD Subjective: * Chief Complaints: [...] 03/30/2025 Generated for Navjot mccall/Janay/Jasielransmitting on: 1 12:30 PM EDT
--- OUTSIDE RECORDS SUMMARY | 2025-07-10 03:00 | XMS_ITS ---
Author Organization Blue Acosta MD Address [address] [place], [place] [phone] Care Team Providers Care Mental Retardation Nurse Name Role Phone Blue Acosta Primary Care Provider Results Component Value Reference Range Notes Complete Blood Count Auto Di ff Reviewed date:07/10/2025 12:29:22 PM Interpretation: Performing Lab:[facility], [address] [place] [phone] Notes/Report: White Blood Count 10.2 4.8-10.8 X10*3/uL [...] Panel Reviewed date:07/10/2025 12:29:39 PM Interpretation: Performing Lab:[address] [phone] Notes/Report: Triglycerides 98 <150 mg/dL Desirable Triglyceride: [...] (Free>4and<10) Reviewed date:07/10/2025 12:29:01 PM Interpretation: Performing Lab:[facility], [address] [place] [phone] Notes/Report: PSA,Total (Free>4and<10) 0.26 0.00-4.00 ng/mL A [...] A1c Reviewed date:07/10/2025 12:28:51 PM Interpretation: Performing Lab:[facility], [address] [place] [phone] Notes/Report: Hemoglobin A1c % 6.1 <6.0 % [...] average glucose, using the formula of the H8K-[place] Average Glucose study (ADAG), Diabetes Care, Vol.31,#8, May. 2007 REASON FOR VISIT FASTING LABS Immunizations Vaccine Route Administration Date Status Comme nts Influenza High Dose IM Intramuscular 07/10/2025 Administer ed Encounters Encounter Location Date Provider Diagnosis Blue Acosta MD [address] [place], [place] [phone] 07/10/2025 Blue Acosta Mixed hyperlipidemia E78.2 ; [...] Pending Test Test Name Order Date Comprehensive [place]. Panel Fast 5 Microalbumin, Random 07/10/2025 UA ClnCatch+Micro w/rflx Cult 07/10/2025 Next Appt Details Provider Name:Blue garrido, 08/18/2025 09:00:00 AM, [address], [address], [place], [place], [phone], Provider Name:Blue Arechiga ier, 01/18/2026 07:30:00 AM, [address], [address], [place], [phone], Provider Name:Blue Arechiga ier, 01/25/2026 09:00:00 AM, [address], [address], [place], [phone], Provider Name:Blue Arechiga ier, 07/12/2026 07:00:00 AM, [address], [address], [place], [phone], Provider Name:Blue Arechiga ier, 07/19/2026 08:30:00 AM, [address], [address], [place], [phone], Progress Notes * Mahin AMBROCIO GDOB:[birth year] (69 yo M)Acc No.[id number]:07/10/2025 Progress Note Patient: Mahin LAWRENCE Provider: Madan Acosta MD :1955 A ge:69 Y S ex:Male Date:07/10/2025 Address:[address] [place], [place] [phone] Subjective: * Chief Complaints: * 1 . FASTING LABS. * Medical History: Objective: * Vitals: Assessment: * Assessment: 1. E ncounter for administration of vaccine - Z23 (Primary) 2 . M ixed hyperlipidemia - E78.2 3 . E ssential hypertension - I10 4 . P rediabetes - R73.09 Plan: * Treatment: 2. E ssential hypertension L AB: Comprehensive [place]. Panel Fast L AB: Microalbumin, Random L [...] AM) 3. P rediabetes L AB: Comprehensive [place]. Panel Fast L AB: Microalbumin, Random L [...] * Procedure Codes: 3 6415 VENIPUNCT, ROUTINE*, 62024 FLU VACC PRSV FREE INC ANTIG, G0008 [...] 07/10/2025 Generated for Navjot mccall/Janay/Tanoitting on: 1 12:29 PM EDT
--- OUTSIDE RECORDS SUMMARY | 2025-07-16 04:00 | XMS_ITS ---
Author Organization Blue Acosta MD Address [address] [place], [place] [phone] Care Team Providers Care Circulation Assistant Name Role Phone Blue Acosta Primary Care Provider Allergies Allergen (clinical drug ingredient) Drug/Non Drug Allergy documented on EMR Reaction Allergy Type Onset Date Status zolpidem ambien (uncoded) hallucinations Allergy Active amoxil (uncoded) rash Allergy Act dick Results Component Value Reference Range Notes Microalbumin, Random Reviewed date:07/16/2025 12:43:31 PM Interpretation: Performing Lab:[facility], [address] [place] [phone] Notes/Report: Creatinine Urine 91.72 Microalbumin Urine 8.0 Microalbum/Creatinine Ratio Ur 8.7 <30 ug/mg cr Albumin/Creatinine Ratio Reference Ranges: Normal: < 30 ug/mg creatinine Microalbuminuria: 30 - 300 ug/mg creatinine Clinical Albuminuria: > 300 ug/mg creatinine UA ClnCatch+Micro w/rflx Cul t Reviewed date:07/16/2025 12:43:48 PM Interpretation: Performing Lab:[facility], [address] [place] [phone] Notes/Report: Urine, Clean Catch Color Urine Yellow Appearance Urine Clear PH 6.5 5.0-9.0 Glucose Urine UA Negative Negative mg/dL Urine Blood Negative Negative Specific [place] - Urine 1.015 1.005-1.025 Urine Protein Negative [...] Status W/U Status Risk Notes Problem Sinusitis (98179188) Sinusitis (J32.9) Active confirmed Vital Signs Blood pressure systolic 162 mm Hg 07/16/20 25 Blood pressure diastolic 80 mm Hg 025 Height 73 in 07/16/2025 Weight 344 lbs 07/16/2025 BMI 45.38 kg/m2 07/16/2025 weight is up 6 pounds since 01-09-25 Encounters Encounter Location Date Provider Diagnosis Blue Acosta MD [address] [place] [address] [place] [phone] 07/16/2025 Blue Acosta Prediabetes R73.09 ; Essential [...] Provider Name:Blue Arechiga ier, 08/18/2025 09:00:00 AM, [address] [place] [address], [address] [place] [address], [phone], Provider Name:Blue Arechiga ier, 01/18/2026 07:30:00 AM, [address] [place] [address], [address], [phone], Provider Name:Blue reyr, 01/25/2026 09:00:00 AM, [address] [place] [address], [address], [phone], Provider Name:Blue Arechiga ier, 07/12/2026 07:00:00 AM, [address] [place] [address], [address], [phone], Provider Name:Blue Arechiga ier, 07/19/2026 08:30:00 AM, [address] [place] [address], [address], [phone], Progress Notes * Mahin AMBROCIO GDOB:[birth year] (69 yo M)Acc No.[id number]:07/16/2025 Patient: Yanick COLEMANMahin MORLEY Provider: Madan Acosta MD :1955 A ge:69 Y S ex:Male Date:07/16/2025 Address:[address] [place], [place] [phone] Subjective: * Chief Complaints: * R eview [...] MD Date: Generated for Navjot mccall/Janay/Tanoitting on: 12:30 PM EDT History and Physical Notes [...]
[2025-08-02 11:56] VITALS: BP 149/43; PULSE 74; RESP 18; TEMP 36.3; O2SAT 94; BMI 41.0
--- NOTE | 2025-08-02 11:58 | ED.GENADULT ---
[facility] - General Adult General Chief complaint: Epistaxis Stated complaint: nose bleed Time Seen by Provider: 08/02/25 12:28 Source: patient Mode of arrival: ambulatory Limitations: no limitations History of Present Illness ED Provider: DR. Cervantes HPI narrative: 69-year-old history of HTN, arthritis, paroxysmal AFib on Xarelto 20 mg daily came in for evaluation of right nostril bleed started since yesterday, no nasal injury or trauma, bleeding stopped spontaneously last night then went to sabianism this morning been down and he started to rebleed again from the right nostril that he was able to control by applying external nasal pressure and patient came to the emergency department for further evaluation. No CP, no dizziness, patient is compliant with his Xarelto last administration was last night of 20 mg tablets. Patient currently not bleeding. Related Data Home Medications ?Medication ?Instructions ?Recorded ?Confirmed metoprolol succinate 50 mg 50 mg PO DAILY 03/22/21 03/26/25 tablet,extended release 24 hr triamcinolone acetonide 0.5 % 1 appl topical DAILY 03/22/21 03/26/25 topical cream atorvastatin 20 mg tablet 20 mg PO DAILY 07/11/21 03/26/25 multivitamin 1 tab PO DAILY 12/11/22 03/26/25 lisinopril 20 mg tablet 20 mg PO DAILY 01/30/23 03/26/25 celecoxib 200 mg capsule (Celebrex) 200 mg PO DAILY 02/03/25 03/26/25 fluticasone propionate 50 1 spray intranasal DAILY 06/11/25 mcg/actuation nasal spray,suspension tramadol 50 mg tablet 50 mg PO DAILY PRN 06/11/25 Previous Rx's ?Medication ?Instructions ?Recorded chair, wheel (Wheel chair) #1 ea 03/04/21 chair, wheel (Wheel chair) #1 ea 03/04/21 docusate sodium 100 mg capsule 100 mg PO DAILY #60 caps 01/02/24 (Colace) flecainide 100 mg tablet 100 mg PO Q12H #180 tabs 06/27/24 rivaroxaban 20 mg tablet (Xarelto) 20 mg PO QPM #90 tabs 04/02/25 alfuzosin 10 mg tablet,extended 10 mg PO DAILY 90 days #90 tabs 06/17/25 release 24 hr cetirizine 10 mg tablet 10 mg PO DAILY PRN allergy 10/01/25 symptoms #30 tabs levofloxacin 750 mg tablet 750 mg PO Q24H 7 days #7 tabs 07/15/25 prednisone 20 mg tablet 40 mg (2 x 20 mg) PO DAILY 5 days 07/15/25 #10 tabs Allergies Allergy/AdvReac Type Severity Reaction Status Date / Time zolpidem (Ambien) Allergy Severe Unknown Verified 08/02/25 11:57 environmental allergies AdvReac Intermediate Sinus Verified 08/02/25 11:57 Inflammation Review of Systems Review of Systems: All other systems are reviewed and are negative Constitutional: Reports as per HPI and Reports no additional constitutional complaints Eyes: Reports as per HPI and Reports no additional eye complaints Reports system reviewed and no additional complaints, except as documented Cardiovascular: Reports as per HPI and Reports no additional cardiovascular complaints Respiratory: Reports as per HPI and Reports no additional respiratory complaints Gastrointestinal: Reports as per HPI and Reports no additional gastrointestinal complaints Genitourinary: Reports no additional female genitourinary complaints Musculoskeletal: Reports no additional musculoskeletal complaints Skin/Breast: Reports system reviewed and no additional complaints, except as docu Psychiatric: Reports no additional psychiatric complaints Endocrine: Reports no additional endocrine complaints Hematologic/Lymphatic: Reports no additional hematologic/lymphatic complaints Allergic/Immunologic: Reports no additional allergic/immunologic complaints Reports system reviewed and no additional complaints, except as documented and Reports Abnormal speech present [facility] Past Medical History Medical History Renal cyst Bleeding hemorrhoids HTN (hypertension) PAF (paroxysmal atrial fibrillation) Surgical History (Updated 03/26/25 @ 14:10 by Cristina Mosqueda RN) Hx of endoscopic retrograde cholangiopancreatography H/O colonoscopy Hx of foot surgery History of tonsillectomy and adenoidectomy History of deviated nasal septum Hx of cholecystectomy History of mandibular surgery Family History Family History Father CVD (cardiovascular disease) Mother No problems noted. Social History Social History Alcohol intake: never Patient Tobacco Use Status: Never used Tobacco Smoked in Last 30 Days: No Use of substances other than those prescribed or required for medical reasons: No Advance Directives: No Advance Directives Information Provided: Yes Do you have a plan to hurt others: No Plan Current occupational status: retired Physical Exam ED Vital Signs: Vital Signs - 24 hr 08/02/25 11:56 08/02/25 12:19 Temperature 97.3 F 97.3 F Pulse Rate 74 74 Respiratory Rate 18 18 Blood Pressure 149/43 H 149/43 H Pulse Oximetry 94 94 Oxygen Delivery Method Room Air Room Air BMI result Body Mass Index 41.0 Vital signs have been reviewed and appear to be correct. Blood pressure elevated. Heart rate normal. Respiratory rate normal. Temperature normal. Oxygen saturation normal. Appearance: Alert. Oriented X3. No acute distress. Head: Normal external exam. Normocephalic. Atraumatic. No Cobb signs noted. No raccoon eyes noted Eyes: PERRLA. EOMI. Conjunctiva and sclera normal. Eyelids normal. ENT: Right nostril is dry and clean with no apparent source of infection, no dry blood. TM's Normal. Pharynx normal. Uvula midline. Moist mucous membranes. No trismus noted. No drooling noted. No muffled voice noted. Neck: Normal inspection. Neck supple. FROM. No adenopathy. Thyroid Normal. No meningeal signs. No neck mass noted. CVS: Normal heart rate and rhythm. Heart sound normal. No murmurs noted. Pulses normal throughout. Respiratory: No respiratory distress. Painless inspiration. Breath sounds normal. No wheezes/rales/rhonchi noted. Chest nontender. No accessory muscle usage noted or decreased air movement noted. Abdomen: Soft and nontender. Bowel sounds normal in all 4 quadrants. No distention noted. No organomegaly noted. No visible injury noted. Back: No CVA tenderness. Full range of motion noted. Skin: Skin warm and dry. Normal skin color. Normal skin turgor. No rashes/lesions/lacerations noted. Extremities: No lower extremity edema. Extremities exhibit normal range of motion. Extremities nontender. Neuro: Oriented X 3. Cranial nerve exam: II-XII are grossly intact No motor deficit. No sensory deficit. Reflexes normal. Course Course Course Narrative: This is a rapid medical exam performed by Tiffanie Hightower NP: Additional HPI, ROS, PE not included below will be deferred to primary provider. Patient is a 69-year-old male currently on Xarelto presenting to the emergency department with complaint of epistaxis at 3:00 p.m. yesterday which then resolved. States today he bent forward and the bleeding started again. Bleeding controlled on arrival to the ED. Reevaluation(s) Reevaluation #1: 69-year-old male with paroxysmal AFib on Xarelto 20 mg daily presented with right nostril bleed, otherwise no other symptoms, seems the bleed is controlled after patient applied external pressure, will check coags, continue applying pressure on the nostril, will observe for another bleed in the ED. Time: 12:43 Reevaluation #2: Patient remained hemodynamically stable, no anemia, no symptoms, no active bleeding, patient was observed in the emergency department with no sign of bleed, patient was instructed to hold 1 dose of Xarelto tonight and resume tomorrow patient also was instructed to avoid bending down. Time: 15:00 Medical Decision Making Differential Diagnosis Differential Diagnoses: The differential diagnosis associated with the presentation includes (Anterior epistaxis, posterior epistaxis, hemodynamic instability, severe anemia, coagulopathy.) Admission/Observation Consideration of admission/observation: Escalation of care including admission/observation considered Lab Data MDM Lab Attestation statement: I reviewed the patient's lab results. 08/02/25 12:05 08/02/25 12:05 Labs: Lab Results 08/02/25 Range/Units 12:05 WBC 7.9 (4.8-10.8) X10*3/uL RBC 4.61 (4.60-5.80) X10*6/uL Hgb 13.8 L (14.0-18.0) g/dl Hct 41.0 L (42.0-52.0) % MCV 88.9 (80.0-98.0) fL MCH 29.9 (27.0-33.0) pg MCHC 33.7 (31.0-36.0) g/dl RDW 11.9 (11.0-16.0) % Plt Count 186 (160-400) X10*3/uL MPV 9.8 (9.4-12.4) fL Immature Gran % (Auto) 0.1 (0.0-0.4) % Neut % (Auto) 53.0 (45-73) % Lymph % (Auto) 32.9 (20-40) % [place] % (Auto) 10.3 (2-11) % Eos % (Auto) 2.9 (0-4) % Baso % (Auto) 0.8 (0-2) % Lymph # (Auto) 2.6 (1.2-4.9) X10*3/uL [place] # (Auto) 0.8 (0.1-1.2) X10*3/uL Eos # (Auto) 0.2 (0.0-0.4) X10*3/uL Baso # (Auto) 0.1 (0.0-0.2) X10*3/uL Abs Immat Gran (auto) 0.01 (0.00-0.03) X10*3/uL Absolute Neuts (auto) 4.2 (2.0-8.3) x10*3/uL Absolute Nucleated RBC 0.000 (0.0-0.012) X10*3/uL Nucleated RBC % (auto) 0.0 (0.0-0.2) /100WBC Discharge Plan Discharge Clinical Impression: Acute anterior epistaxis Patient Disposition: Home, Self-Care Instructions: Nosebleed (ED) Additional Instructions: Hold your Xarelto dose tonight and resume tomorrow. Avoid bending or bearing down. If nostril bleed started a cane apply external nasal pressure for 10 minutes if unable to stop it returned to the emergency department Prescriptions: No Action flecainide 100 mg tablet 100 mg PO Q12H Qty: 180 3RF Xarelto 20 mg tablet 20 mg PO QPM Qty: 90 3RF (DME) Wheel chair Kit See Rx Instructions .ROUTE .MEDSUPPLY Qty: 1 0RF Rx Instructions: [place] Kit See Rx Instructions .ROUTE .MEDSUPPLY Qty: 1 0RF Rx Instructions: As directed triamcinolone acetonide 0.5 % cream 1 appl topical DAILY metoprolol succinate 50 mg tablet extended release 24 hr 50 mg PO DAILY atorvastatin 20 mg tablet 20 mg PO DAILY multivitamin Tablet 1 tab PO DAILY lisinopril 20 mg tablet 20 mg PO DAILY alfuzosin 10 mg tablet extended release 24 hr 10 mg PO DAILY 90 Days Qty: 90 1RF docusate sodium [Colace] 100 mg capsule 100 mg PO DAILY Qty: 60 2RF celecoxib [Celebrex] 200 mg capsule 200 mg PO DAILY tramadol 50 mg tablet 50 mg PO DAILY PRN fluticasone propionate 50 mcg/actuation spray,suspension 1 spray intranasal DAILY levofloxacin 750 mg tablet 750 mg PO Q24H 7 Days Qty: 7 0RF cetirizine 10 mg tablet 10 mg PO DAILY PRN (Reason: allergy symptoms) Qty: 30 0RF prednisone 20 mg tablet 40 mg PO DAILY 5 Days Qty: 10 0RF Referrals: Blue Acosta MD [Primary Care Provider, Medical] Print Language: Barbadian
[2025-08-02 12:15] LABS: MANUAL DIFF FLAG NO
[2025-08-02 12:16] LABS: Hematocrit 41.0 % (42.0-52.0); Hemoglobin 13.8 g/dl (14.0-18.0); Imm Gran Abs Auto 0.01 X10*3/uL (0.00-0.03); Imm Gran Pct Auto 0.1 % (0.0-0.4); Lymphocytes Absolute Auto 2.6 X10*3/uL (1.2-4.9); Mean Corpuscular HGB Conc 33.7 g/dl (31.0-36.0); Mean Corpuscular Hemoglobin 29.9 pg (27.0-33.0); Mean Corpuscular Volume 88.9 fL (80.0-98.0); NRBC Abs Auto 0.000 X10*3/uL (0.0-0.012); NRBC Pct Auto 0.0 /100WBC (0.0-0.2); Platelet Count 186 X10*3/uL (160-400); Red Blood Count 4.61 X10*6/uL (4.60-5.80); White Blood Count 7.9 X10*3/uL (4.8-10.8)
[2025-08-02 12:19] VITALS: BP 149/43; PULSE 74; RESP 18; TEMP 36.3; O2SAT 94
--- NOTE | 2025-08-02 12:20 | PC.NURSE ---
69 M presents to ED with bloody nose since yesterday after sneezing. Pt is on xeralto for afib. Pt denies any pain but sts some congest on R side of face. RR even and unlabored, denies CP or SOB. Pt is calm, cooperative. Pt ambulates with a cane.
--- NOTE | 2025-08-02 12:22 | PC.NURSE ---
69 M is here for bloody nose since sneezing yesterday, denies any trauma. Pt denies CP or SOB. Pt is A+OX4, calm, cooperative. RR even and unlabored. Pt ambulates with a cane.
--- OUTSIDE RECORDS SUMMARY | 2025-08-02 12:29 | XMS_ITS | Patient Health Record ---
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 Name Role Phone Blue Acosta MD Primary Care Provider Corby Michel [phone] Allergies Allergen (clinical drug ingredient) Drug/Non Drug Allergy documented on EMR Reaction Allergy Type Onset Date Status Seasonal (shots Q 2 wks) (uncoded) Unknown Allergy Active Reason For Referral No Information Medications Medication SIG (Take, Route, Frequency, Duration) Notes Start Date End Date Status Stool Softener 100 MG 1 tablet as needed Orally twice a day Active Probiotic Active Xarelto 20 MG Oral; Duration: 30 Active Gabapentin 300 MG 2 capsule orally Onc e a day/night Active traMADol HCl 50 MG (Schedule IV Drug) T SOY 1 TABLET BY MOUTH EVERY DAY AT NIGHT Oral; Duration: 30 Active Flecainide Acetate 100 MG TAKE 1 TABLET BY MOUTH EVERY 12 HOURS Oral; Duration: 90 Active Multivitamin Adults - as directed Orally Active Atorvastatin Calcium 20 MG TAKE 1 TABLET BY MOUTH EVERY DAY Oral; Duration: 90 Active Lisinopril 10 MG TAKE 1 TABLET BY DARIA TH EVERY DAY Oral; Duration: 90 Active Metoprolol Succinate ER 50 MG TAKE 1 TABLET BY MOUTH ONCE A DAY Oral; Duration: 90 Active CeleBREX 200 MG 1 capsule with food Orally Once a day Active Immunizations Vaccine Route Administration Date Status Comme nts Influenza Unknown 07/15/2019 Administered Influenza Unknown 07/15/2020 Administered Problems Problem Type SNOMED Code ICD Code Onset Dates Problem Status W/U Status Risk Notes Problem Irritable bowel syndrome (80145144) Irritable bowel syndrome (K58.9) Active confirmed Problem Screening for malignant neoplasm of colon (246013645) Encounter for screening for malignant neoplasm of colon (Z12.11) Active confirmed Problem History of adenomatous polyp of colon (414227663) History of adenomatous polyp of colon (Z86.010) Active confirmed Problem Constipation (20776053) Constipation (K59.00) Active confirmed Problem Abdominal bloating (597726473) Abdominal bloating (R14.0) Active confirmed Problem Preprocedural examination (886861154182524) Preprocedural examination (Z01.818) Active confirmed Problem Long-term current use of antiplatelet drug (468520751206504) Long-term use of aspirin therapy (Z79.82) Active confirmed Problem Chronic constipation (766357368) Constipation, chronic (K59.00) Active confirmed Problem Benign neoplasm of colon (71770609) Serrated adenoma of colon (D12.6) Active confirmed Problem Serrated polyp of colon (493713276) Serrated polyp of colon (K63.5) Active confirmed Vital Signs Blood pressure diastolic 11 mm Hg 12/11/2024 Height 74 in 12/11/2024 Blood pressure systolic 111 mm Hg 12/11/2024 Weight 337 lbs 12/11/2024 BMI 43.26 kg/m2 12/11/2024 Procedures Procedure Date Ordered Date Performed Result Body Sit e COLONOSCOPY 12/11/2024 N/A Encounters Encounter Location Date Provider Diagnosis [facility] [place] Outpatient [address] [place], [place] [id number] 03/30/2025 Corby Sanchez Colon cancer screeni ng Z12.11 ; Personal history of adenomatous and serrated colon polyps Z86.0101 ; Diverticulosis of large intestine without perforation or abscess without bleeding K57.30 and Other hemorrhoids K64.8 [facility] [address] [place] [address] 12/11/2024 Corby Sanchez History of adenomato us polyp of colon Z86.010 ; Abdominal bloating R14.0 ; Encounter for screening for malignant neoplasm of colon Z12.11 ; Preprocedural examination Z01.818 ; Long-term use of aspirin therapy Z79.82 ; Serrated polyp of colon K63.5 ; Serrated adenoma of colon D12.6 and Irritable bowel syndrome K58.9 [facility] [address] [place] [address] 12/11/2024 Corby Sanchez [facility] [address] [place] [address] 02/24/2025 Corby Sanchez [facility] [address] [place] [address] [place] [address] 03/26/2025 Corby Sanchez Assessments Encounter Date Diagnosis [...] advised him that he could try some eerz-huf-upfmnqx simethicone to help with the bloating and [...] advised him that he could try some pqrs-lgm-sjuoszg simethicone to help with the bloating and [...] advised him that he could try some xnqw-vkh-eqrmdaf simethicone to help with the bloating and [...] advised him that he could try some xuri-ock-ytrzyzq simethicone to help with the bloating and [...] advised him that he could try some vpiz-dvm-vqvqvwn simethicone to help with the bloating and [...] advised him that he could try some wzzo-hlh-wmsgsjs simethicone to help with the bloating and [...] advised him that he could try some ftbd-mhj-whmckci simethicone to help with the bloating and [...] advised him that he could try some mbzc-vqa-lsjriqk simethicone to help with the bloating and [...] End Date MEDICARE OF [place] [address] [place] [address] [id number] JORGEKYRIE HCEUNG Self - patient is the insured [employer] ([employer]) [address] [place], [place] [id number] [phone] [id number] KYRIE JORGE Self - patient is the insured Medical (General) History Medical History History ICD Code Colonoscopy 12/29/2005-negati ve for polyps; colonoscopy in 04/2012 with a tiny serrated adenoma of the cecum, diverticulosis, and internal hemorrhoids ERCP for choledocholithiasis in 06/2005 Duodenal ulcers in 2004 Denies VT,DM,CVA,Lung disease,renal dise ase HTN Sleep apnea--uses a [...]
--- OUTSIDE RECORDS SUMMARY | 2025-08-02 12:29 | XMS_ITS | Data Portability ---
Author Organization [facility], [address] Address [address] [place] [address] Care Team Providers Care Bleaching Supervisor Name Role Phone [facility] Primary Care Provider [phone] Assessment No assessment recorded. Plan of Treatment Reminders Order Date Submit Date Provider Last Modified By Organization Details Last Modified Time Details Appointments None recorded. Lab rapid SARS CoV 2 Ag, QL IA, respiratory specimen 2022 023 [email or web address] [facility], [address] [place] [address], [phone], 3 13:13:33 rapid strep group A, throat 2022 023 [email or web address] _[facility], [address] [place] [address], [phone], 3 13:13:33 Referral None recorded. Procedures None recorded. Surgeries None recorded. Imaging None recorded. Medication Orders fluticasone propionate 50 mcg/actuati on nasal spray,suspe nsion 2022 023 [id number], [address] [place], [address], 3 13:32:31 cetirizine 10 mg tablet 2022 023 [email or web address] [id number], [address] [place], [address], 3 13:32:39 Patient TargetsNo targets recorded. Patient InstructionsNo instructions recorded. Reason for Referral None Reported. Results Created Date Observation Date Name Description Value Unit Range Abnormal Flag Note LastModifiedBy Organization Detail LastModifiedTime 01/27/20 23 01/26/2023 rapid SARS CoV 2 Ag, QL IA, respi rator y speci men Unknown Analyte Normal =Negat dick Not Available [address] [place] [address], [phone], 01/26/2023 12:42:27 01/27/20 23 01/26/2023 rapid SARS CoV 2 Ag, QL IA, respi rator y speci men Unknown Analyte negati ve Not Available [address] [place] [address], [phone], 01/26/2023 12:42:27 01/27/20 23 01/26/2023 rapid strep group A, throa t Unknown Analyte Normal = Negati ve Not Available [address] [place] [address], [phone], 01/26/2023 12:47:49 01/27/2001/26/2023 rapid strep group A, throa t Unknown Analyte negati ve Not Available [address] [place] [address], [phone], 01/26/2023 12:47:49 Result Notes None recorded. Problems Name Problem SNOMED Code Status Onset Date Resolution Date Notes Provider Name and Address Organization Details Recorded Time Atrial fibrillation 43213901 Active 2022 Kathy harmon, PA - [facility] 3 12:46:09 Hypertensive disorder 20193004 Active 2022 Kathy harmon, PA - [facility] 12:46:15 Problem Notes None recorded. Medical Equipment None Reported. Allergies Allergen ID Allergen Name Allergen Category Reaction Reaction Severity Criticality Documentation Date Start Date Code Code System Note Provider Name and Address Organization Details Recorded Time 985161 grass pollen environme nt,medica tion Not available Not available Not available 01/26/2023 Kathy harmon, PA - [facility] 3 12:44:21 719587 cat dander environme nt Not available Not available Not available 01/26/2023 Kathy harmon, PA - [facility] 3 12:44:25 710349 Canis lupus familiari s extract environme nt Not available Not available Not available 01/26/2023 80882 4 RxNorm Kathy harmon, PA - [facility] 3 12:44:28 975859 house dust allergeni c extract environme nt,medica tion Not available Not available Not available 01/26/2023 81831 9 RxNorm Kathy harmon, PA - [facility] 3 12:44:34 185277 mold extract environme nt Not available Not available Not available 01/26/2023 21783 8 RxNorm Kathy harmon, PA - [facility] 3 12:44:38 Medications Name Sig Start Date Stop Date Status Note LastModified by Organization Details LastModified Time celecoxib 200 mg capsule TAKE 1 CAPSULE BY MOUTH ONCE A DAY PA active Not Available Not Available No t Available atorvastati n 20 mg tablet TAKE 1 TABLET BY MOUTH EVERY DAY FOR 90 DAYS active Not Available Not Available No t Available cetirizine 10 mg tablet Take 1 tablet every day by oral route. 2022 active Not Available Not Available Not Avai lable metoprolol succinate ER 50 mg tablet,exte nded release 24 hr TAKE 1 TABLET BY MOUTH EVERY DAY active Not Available Not Available No t Available lisinopril 20 mg tablet TAKE 1 TABLET BY MOUTH EVERY DAY 01/26 completed Not Available Not Available Not Available tramadol 50 mg tablet TAKE 1 TABLET BY MOUTH NIGHTLY AT BEDTIME (1 MONTH) active Not Available Not Available No t Available meclizine 25 mg tablet TAKE 1 TABLET BY MOUTH EVERY DAY NEEDED 01/26 completed Not Available Not Available Not Available pantoprazol e 40 mg tablet,agueda yed release TAKE 1 TABLET BY MOUTH EVERY DAY DO NOT CRUSH, CHEW, OR SPLIT 01/26 completed Not Available Not Available Not Available lisinopril 10 mg tablet TAKE 1 TABLET BY MOUTH EVERY DAY active Not Available Not Available No t Available flecainide 100 mg tablet TAKE 1 TABLET BY MOUTH EVERY 12 HOURS active Not Available Not Available No t Available gabapentin 300 mg capsule TAKE 2 TO 3 TABLETS BY MOUTH AT BEDTIME active Not Available Not Available No t Available fluticasone propionate 50 mcg/actuati on nasal spray,suspe nsion Arnold 1 spray every day by intranasa l route. 2022 active Not Available Not Available Not Avai lable metoclopram kalpesh 10 mg tablet TAKE 1 TABLET (10 MG TOTAL) BY MOUTH 4 (FOUR) TIMES A DAY IF NEEDED (ABDOMINA L BLOATING AND NAUSEA). 01/26 completed Not Available Not Available Not Available Xarelto 20 mg tablet TAKE 1 TABLET BY MOUTH EVERY EVENING active Not Available Not Available No t Available Flonase Sensimist 27.5 mcg/actuati on nasal spray,suspe nsion USE 1 SPRAY INTO EACH NOSTRIL DAILY NEEDED FOR ALLERGY SYMPTOMS 01/26 completed Not Available Not Available Not Available BinaxNOW COVID-19 Ag Self Test kit TEST DIRECTED 01/26 completed Not Available Not Available Not Available Vitals Date Recorded Body height Body mass index (BMI) Body weight Pain severity - 0-10 verbal numeric rating [Score] - Reported Respiratory rate Oxygen saturation Oxygen saturation in Arterial blood by Pulse oximetry Heart rate Body temperature Systolic And Diastolic Provider Name and Address Organization Details Last Updated DateTime 3 190.5 cm 40 kg/m2 284533. 56 g 6 18 /min 97 % 97 % 61 /min 98 [degF] 128/77 mm[Hg] Kathy Lucas [facility] 3 12:49:00 Social History Question Answer Notes LastModified by [employer] Details LastModified Time Tobacco Smoking Status Never Smoker BALDO Marcelo [facility] 01/26/2023 12:46:44 Have You Recently Traveled Abroad? No Information not available 01/26/2023 Sex: Unknown Functional Status Question Answer Note LastModified by [employer] Details LastModified Time Do you use any illicit or recreational drugs? No Information not available 01/26/2023 Do you or have you ever used any other forms of tobacco or nicotine? No Information not available 01/26/2023 What is your level of alcohol consumption? None Information not available 01/26/2023 Mental Status None recorded. Family History Relationship Description Onset Age of this Age Resolved Age Notes LastModified by Organization Details LastModified Time Father No current problems or disability [email or web address] Not available 01/26 12:46:23 Mother No current problems or disability [email or web address] Not available 01/26 12:46:23 Medical History No medical history recorded. Immunizations Vaccine Type Date Status Note Provider Nam e and Address Organization Details Recorded Time zoster recombinant 8 completed Kathy Monfette null, PA - [facility] 01/26/2023 12:43:57 zoster recombinant 8 completed Kathy Monfette null, PA - [facility] 01/26/2023 12:43:57 Influenza, high-dose, quadrivalent, PF 2 completed Kathy Monfette null, PA - [facility] 01/26/2023 12:43:57 COVID-19, mRNA, LNP-S, PF, 100 mcg/0.5mL dose or 50 mcg/0.25mL dose 1 completed Kathy Monfette null, PA - [facility] 01/26/2023 12:43:57 COVID-19, mRNA, LNP-S, PF, 100 mcg/0.5mL dose or 50 mcg/0.25mL dose 1 completed Kathy Monfette null, PA - [facility] 01/26/2023 12:43:57 COVID-19, mRNA, LNP-S, PF, 100 mcg/0.5mL dose or 50 mcg/0.25mL dose 2 completed Kathy Monfette null, PA - [facility] 01/26/2023 12:43:57 pneumococcal polysaccharide PPV23 0 completed Kathy Monfette null, PA - [facility] 01/26/2023 12:43:57 DT (pediatric) 8 completed Kathy Monfette null, PA - [facility] 01/26/2023 12:43:57 Tdap 8 completed Kathy Monfette null, PA - [facility] 01/26/2023 12:43:57 Pneumococcal conjugate PCV 13 5 completed Kathy Monfette null, PA - [facility] 01/26/2023 12:43:57 zoster live 5 completed Kathy Monfette null, PA - [facility] 01/26/2023 12:43:57 Influenza, high-dose, trivalent, PF 0 completed Kathy Monfette null, PA - [facility] 01/26/2023 12:43:57 Influenza, high-dose, trivalent, PF 1 completed Kathy Monfette null, PA - [facility] 01/26/2023 12:43:57 Influenza, split virus, trivalent, PF 7 completed Kathy Monfette null, PA - [facility] 01/26/2023 12:43:58 Influenza, split virus, trivalent, PF 8 completed Kathy Monfette null, PA - [facility] 01/26/2023 12:43:58 Influenza, split virus, trivalent, PF 9 completed Kathy Monfette null, PA - [facility] 01/26/2023 12:43:58 Influenza, split virus, trivalent, PF 6 completed Kathy Monfette null, PA - [facility] 01/26/2023 12:43:58 Past Encounters Encounter ID Performer Location Encounter Start Date Encounter Closed Date Diagnosis/Indication Diagnosis SNOMED-CT Code Diagnosis ICD10 Code Diagnosis IMO Codes Diagnosis Note [id number] [facility] [address] [place] [address] 02/23/2022 08:42:28 02/23/2022 10:05:26 [id number] [place] [address] [place] [address] 01/26/2023 10:33:28 01/26/2023 13:38:31 Upper respiratory infection 80176723 J06.9 Viral infectionR ecommend plenty of fluidsTyle nol for pain/fever Humidifier Nasal saline sprayNo need for antibiotic may last up to 2 weeksCall or RTC if worsening cough, SOB, high fever, rash, n/v/d and unable to hydrate Allergic rhinitis 784018 04 J30.9 Sx and PE c/w allergic rhinitistr ial of loratidine and flonasePat ient advised to follow up as needed for worsening symptoms or no improvemen t. Health Concerns Section Related Observation LastModified by Organization Detai ls LastModified Time None Recorded Concern Status LastModified by Organization Details LastModified Time None Recorded Advance Directives Directive None Recorded Payers Insurance Date Sequence Insurance Name Policy Number Policy Weldon Covered Member ID Weldon Member ID Guarantor Name 01/26/2023 1 [place]: [employer] Mahin Ha [id number] Mahin Ha 01/26/2023 2 [facility] [place] [id number] Mahin Ha [id number] Mahin Ha Notes Date Note Type Note Provider Name and Address Organization Details Recorded Time 01/26/2023 text/html COVID-19 SymptomsReported by Patient CongestionReported by [email or web address] yo male c/o congestion and sore throat x3 days, no known exposure to covid, took home covid test and was negative, requests rapid covid test No feverNo chillsNo coughNo difficulty breathing or respiratory distressNo wheezeNo CPNo ear painNo Abdominal painNo nauseaNo vomitingNp diarrheaNo myalgiaNo fatigueNo rashNo HANo dizzinessNo recent travelNo known sick contactsROS as noted in the HPI Addison Hall DO [address] [place], [address], [place] - [facility] 01/26/2023 13:33:08"
--- OUTSIDE RECORDS SUMMARY | 2025-08-02 12:30 | XMS_ITS | Patient Health Record ---
Author Organization [facility] Address [address] [place] [address] Care Team Providers Care Global Marketing Coordinator Name Role Phone Blue Acosta MD Primary Care Provider Milli Jimenez Unavailable [phone] Allergies Allergen (clinical drug ingredient) Drug/Non Drug [...] W/U Status Risk Notes Problem Tinea unguium (470682013) Tinea unguium (B35.1) Active confirmed Problem Acquired hammer toe of left foot (2391039112644494 ) Other hammer toe(s) (acquired), left foot (M20.42) Active confirmed Problem Localized, primary osteoarthritis of the ankle and/or foot (672140469) Arthritis of joint of lesser toe, left [...] X ray : Foot, left 3V 05/06/2024 [id number] NAIL, 1-5 08/17/2023 [id number] NAIL, 1-5 03/31/2016 08051- Debride <25 sq cm 09/02/2013 93140- Debride <25 sq cm 08/17/2023 [id number] SKIN/TISSUE 07/07/2013 [id number] SKIN/TISSUE 07/22/2013 [id number] SKIN/TISSUE 08/12/2013 Insurance Providers Payer Name Payer Address Payer Phone Subscriber Number Group Number Insured Name Patient Relationship to Insured Coverage Start Date Coverage End Date [employer] [address] [place] [address] [phone] [id number] Mahin Ha Self - patient is the insured [facility] ([facility] [address] [place] [address] [id number] Mahin Ha Self - patient is [...]
--- OUTSIDE RECORDS SUMMARY | 2025-08-02 12:30 | XMS_ITS | Patient Health Record ---
Author Organization Blue Acosta MD Address [address] [place], [place] [id number] Care Team Providers Care Cloth Pattern Maker Name Role Phone Blue Acosta Primary Care Provider Allergies Allergen (clinical drug ingredient) Drug/Non Drug Allergy documented on EMR Reaction Allergy Type Onset Date Status zolpidem ambien (uncoded) hallucinations Allergy Active amoxil (uncoded) rash Allergy Act dick Results Component Value Reference Range Notes Liver Panel Reviewed date:01/02/2025 12:30:46 PM Interpretation: Performing Lab:[facility], [address] [place] [phone] Notes/Report: Bilirubin Total 0.6 0.0-1.0 mg/dL Bilirubin Direct 0.3 0.0-0.5 mg/dL Aspartate Amino Transferase 29 5-37 U/L Alanine Aminotransferase 22 0-40 U/L Total Protein 7.6 6.5-8.0 g/dL Albumin Level 3.9 3.5-5.0 g/dL Alkaline Phosphatase 80 39-117 U/L Glucose Fasting Reviewed date:01/02/2025 12:30:54 PM Interpretation: Performing Lab:[facility], [address] [place] [phone] Notes/Report: Glucose Fasting 118 60-99 mg/dL A fasting glucose from 100-125 mg/dl is considered impaired (pre-diabetes). Lipid Panel with Reflex Reviewed date:01/02/2025 12:31:05 PM Interpretation: Performing Lab:[facility], [address] [place] [phone] Notes/Report: Triglycerides 118 <150 mg/dL Desirable Triglyceride: [...] A1c Reviewed date:01/03/2025 06:16:13 PM Interpretation: Performing Lab:[address] [phone] Notes/Report: Hemoglobin A1c % 5.6 <6.0 % [...] average glucose, using the formula of the Y2E-Vulnxfh Average Glucose study (ADAG), Diabetes Care, Vol.31,#8, May. 2007 Complete Blood Count Auto Di ff Reviewed date:07/10/2025 12:29:22 PM Interpretation: Performing Lab:[facility], [address] [place] [phone] Notes/Report: White Blood Count 10.2 4.8-10.8 X10*3/uL [...] Panel Reviewed date:07/10/2025 12:29:39 PM Interpretation: Performing Lab:[facility], [address] [place] [phone] Notes/Report: Triglycerides 98 <150 mg/dL Desirable Triglyceride: [...] (Free>4and<10) Reviewed date:07/10/2025 12:29:01 PM Interpretation: Performing Lab:[address] [phone] Notes/Report: PSA,Total (Free>4and<10) 0.26 0.00-4.00 ng/mL A [...] A1c Reviewed date:07/10/2025 12:28:51 PM Interpretation: Performing Lab:[address] [phone] Notes/Report: Hemoglobin A1c % 6.1 <6.0 % [...] average glucose, using the formula of the B6I-Sgcneop Average Glucose study (ADAG), Diabetes Care, Vol.31,#8, May. 2007 Microalbumin, Random Reviewed date:07/16/2025 12:43:31 PM Interpretation: Performing Lab:[address] [phone] Notes/Report: Creatinine Urine 91.72 Microalbumin Urine 8.0 Microalbum/Creatinine Ratio Ur 8.7 <30 ug/mg cr Albumin/Creatinine Ratio Reference Ranges: Normal: < 30 ug/mg creatinine Microalbuminuria: 30 - 300 ug/mg creatinine Clinical Albuminuria: > 300 ug/mg creatinine UA ClnCatch+Micro w/rflx Cul t Reviewed date:07/16/2025 12:43:48 PM Interpretation: Performing Lab:[facility], [address] [place] [phone] Notes/Report: Urine, Clean Catch Color Urine Yellow Appearance Urine Clear PH 6.5 5.0-9.0 Glucose Urine UA Negative Negative mg/dL Urine Blood Negative Negative Specific Campbell - Urine 1.015 1.005-1.025 Urine Protein Negative Neg-Trace mg/dL Urine Ketones Negative Negative mg/dL Nitrite Urine Negative Negative Leukocyte Esterase Urine Negative Negative RBC Urine 0-2 0-2 /HPF WBC Urine 0-5 0-5 /HPF Squamous Epithelial Cell Urine 0-2 0-2 /HPF Bacteria Urine None Seen None Seen Hyaline Casts Urine 0-2 0-2 /LPF Hold Gold Reviewed date:01/02/2025 12:23:00 PM Interpretation: Performing Lab:[facility], [address] [place] [phone] Notes/Report: Johnie Milner See Note Specimen held untested for 24 hours; Call to request Chemistry testing. Complete Blood Count Auto Di ff Reviewed date:01/06/2025 08:02:47 PM Interpretation: Performing Lab:[facility], [address] [place] [phone] Notes/Report: White Blood Count 12.8 4.8-10.8 X10*3/uL [...] Panel Reviewed date:01/06/2025 08:04:15 PM Interpretation: Performing Lab:[facility], [address] [place] [phone] Notes/Report: Sodium 140 135-145 mmol/L Potassium 4.1 [...] Magnesium Reviewed date:01/06/2025 07:58:26 PM Interpretation: Performing Lab:[facility], [address] [place] [phone] Notes/Report: Magnesium 1.8 1.6-2.6 mg/dL Lipase Reviewed date:01/06/2025 07:58:34 PM Interpretation: Performing Lab:[facility], [address] [place] [phone] Notes/Report: Lipase 23 8-78 U/L CT NG by PCR Reviewed date:01/07/2025 02:59:49 PM Interpretation: Performing Lab:[facility], [address] [place] [phone] Notes/Report: Urine CT PCR NOT DETECTED Not [...] Cult Reviewed date:01/08/2025 04:41:34 PM Interpretation: Performing Lab:[facility], [address] [place] [phone] Notes/Report: Urine, Clean Catch Color Urine Yellow Appearance Urine Clear PH 5.5 5.0-9.0 Glucose Urine UA Negative Negative mg/dL Urine Blood Negative Negative Specific Campbell - Urine 1.015 1.005-1.025 Urine Protein Negative Neg-Trace mg/dL Urine Ketones Negative Negative mg/dL Nitrite Urine Negative Negative Leukocyte Esterase Urine Negative Negative CT abdomen pelvis wo con Reviewed date:01/06/2025 08:03:52 PM Interpretation: Performing Lab: Notes/Report: [facility] [address] [place] [address] CT Scan Report Signed Patient: Mahin Ambrocio MR#: [id number] 045 : 1955 Acct:[id number] Age/Sex: 69 / M ADM Date: 01/06/25 Loc: .ED Attending Dr: Ordering Physician: Cristina Birmingham Date of Service: 01/06/25 Procedure(s): CT abdomen pelvis wo IV con Accession Number(s): [id number] cc: Blue Acosta MD; Cristina Birmingham Report Number: [id number]: Total DLP = 1401.00 mGy-cm EXAMINATION: CT [...] 01/06/25 1414 DD/ 1310 TD/TT: 01/06/25 1402 Talent Acquisition Partner: [address] [address] [address] Scan Report Signed Patient: Ziyad Ambrocio in G MR#: [id number] 045 : 1955 Acct:[id number] Age/Sex: 69 / M ADM Date: 01/06/25 Loc: .ED Attending Dr: Ordering Physician: Cristina Birmingham Date of Service: 01/06/25 Procedure(s): CT abd omen pelvis wo IV con Accession Number(s): [id number] cc: Blue Acosta MD; Cristina Birmingham Report Number: [id number]: Total DLP = 1401.00 mGy-cm EXAMINATION: CT [...] 01/06/25 1414 DD/ 1310 TD/TT: 01/06/25 1402 Talent Acquisition Partner: US scrotum Reviewed date:01/07/2025 03:00:25 PM Interpretation: Performing Lab: Notes/Report: [address] [address] Ultrasound Report Signed Patient: Mahin Ambrocio MR#: [id number] 045 : 1955 Acct:[id number] Age/Sex: 69 / M ADM Date: 01/06/25 Loc: HO.ED Attending Dr: Ordering Physician: Omid Lopez MD Date of Service: 01/06/25 Procedure(s): US scrotum Accession Number(s): [id number] cc: Blue Acosta MD; Omid Lopez MD CLINICAL HISTORY: L testicular pain. Ultrasound scrotum. COMPARISON: None Technique: Real time sonographic imaging, including color-flow imaging, was performed by the brick and blocker aid labor. Multiple airline security representative static images were saved for review. [...] OV> 01/07/25 0804 DD/ 15 TD/TT: 01/06/251815 Talent Acquisition Partner: [place] [address] Ultrasound Report Signed Patient: Ziyad Ambrocio MR#: [id number] 045 : 1955 Acct:[id number] Age/Sex: 69 / M ADM Date: 01/06/25 Loc: .ED Attending Dr: Ordering Physician: Omid Lopez MD Date of Service: 01/06/25 Procedure(s): US scrotum Accession Number(s): [id number] cc: Blue Acosta MD; Omid Lopez MD CLINICAL HISTORY: L testicular pain. Ultrasound scrotum. COMPARISON: None Technique: Real time sonographic imaging, including color-flow imaging, was performed by the brick and blocker aid labor. Multiple airline security representative static images were saved for review. [...] OV> 01/07/25 0804 DD/ 15 TD/TT: 01/06/251815 Talent Acquisition Partner: US scrotum doppler Reviewed date:01/06/2025 08:04:52 PM Interpretation: Performing Lab: Notes/Report: [address] [address] Ultrasound Report Signed Patient: Mahin Ambrocio MR#: [id number] 045 : 1955 Acct:[id number] Age/Sex: 69 / M ADM Date: 01/06/25 Loc: HO.ED Attending Dr: Ordering Physician: Louise Callejas Date of Service: 01/06/25 Procedure(s): US scrotum doppler Accession Number(s): [id number] cc: Blue Acosta MD; Louise Callejas CLINICAL HISTORY: L testicular pain. Ultrasound scrotum. COMPARISON: None Technique: Real time sonographic imaging, including color-flow imaging, was performed by the brick and blocker aid labor. Multiple airline security representative static images were saved for review. [...] in OV> 01/06/251815 DD/ 15 TD/TT: 01/06/251815 Talent Acquisition Partner: [place] [address] Ultrasound Report Signed Patient: Ziyad Ambrocio MR#: [id number] 045 : 1955 Acct:[id number] Age/Sex: 69 / M ADM Date: 01/06/25 Loc: HO.ED Attending Dr: Ordering Physician: Louise Callejas Date of Service: 01/06/25 Procedure(s): US scr otum doppler Accession Number(s): [id number] cc: Blue Acosta MD; Louise Callejas CLINICAL HISTORY: L testicular pain. Ultrasound scrotum. COMPARISON: None Technique: Real time sonographic imaging, including color-flow imaging, was performed by the brick and blocker aid labor. Multiple airline security representative static images were saved for review. [...] in OV> 01/06/251815 DD/ 15 TD/TT: 01/06/251815 Talent Acquisition Partner: XR chest 2V Reviewed date:01/13/2025 02:56:25 PM Interpretation: Performing Lab: Notes/Report: [address] [address] XRay Report Signed Patient: Mahin Ambrocio MR#: [id number] 045 : 1955 Acct:[id number] Age/Sex: 69 / M ADM Date: 01/09/25 Loc: HO.XRAY Attending Dr: Blue Acosta MD Ordering Physician: Blue Acosta MD Date of Service: 01/09/25 Procedure(s): XR chest 2V Accession Number(s): [id number] cc: Blue Acosta MD EXAMINATION: XR CHEST [...] 01/09/25 1059 DD/ 1000 TD/TT: 01/09/25 1010 Talent Acquisition Partner: [address] [address] XRay Report Signed Patient: Ziyad Ambrocio MR#: [id number] 045 : 1955 Acct:[id number] Age/Sex: 69 / M ADM Date: 01/09/25 Loc: HO.XRAY Attending Dr: Blue Acosta MD Ordering Physician: Blue Acosta MD Date of Service: 01/09/25 Procedure(s): XR isaias st 2V Accession Number(s): [id number] cc: Blue Acosta MD EXAMINATION: XR CHEST [...] 01/09/25 1059 DD/ 1000 TD/TT: 01/09/25 1010 Talent Acquisition Partner: MR summers wo/w con Reviewed date:02/17/2025 04:48:05 PM Interpretation: Performing Lab: Notes/Report: [place] [address] Magnetic Resonance Report Signed Patient: Mahin Ambrocio MR#: [id number] 045 : 1955 Acct:[id number] Age/Sex: 69 / M ADM Date: 02/16/25 Loc: HO.MRI Attending Dr: Jamey Rojas MD Ordering Physician: Jamey Rojas MD Date of Service: 02/16/25 Procedure(s): MR abdomen wo/w con Accession Number(s): [id number] cc: Blue Acosta MD; Jamey Rojas MD [...] Houston MD in OV> 02/17/25 1311 DD/ 130 TD/TT: 02/17/251308 Talent Acquisition Partner: [place] [address] Magnetic Resonance Report Signed Patient: Ziyad Ambrocio MR#: [id number] 045 : 1955 Acct:[id number] Age/Sex: 69 / M ADM Date: 02/16/25 Loc: HO.MRI Attending Dr: Jamey Rojas MD Ordering Physician: Jamey Rojas MD Date of Service: 02/16/25 Procedure(s): MR abd omen wo/w con Accession Number(s): [id number] cc: Blue Acosta MD; Jamey Rojas MD [...] by Wilfrid Houston MD in OV> 02/17/25 131 DD/ 08 TD/TT: 02/17/251308 Talent Acquisition Partner: XR lumbar spine 4V min Reviewed date:02/23/2025 12:34:44 PM Interpretation: Performing Lab: Notes/Report: [facility] [address] [place] [address] XRay Report Signed Patient: Mahin Ambrocio MR#: [id number] 045 : 1955 Acct:[id number] Age/Sex: 69 / M ADM Date: 02/20/25 Loc: HO.HOSX Attending Dr: Simon Solano MD, PhD Ordering Physician: Simon Solano MD, PhD Date of Service: 02/20/25 Procedure(s): XR lumbar spine 4V min Accession Number(s): [id number] cc: Blue Acosta MD; Simon Solano MD, [...] signed by Jenniffer Tinsley MD in OV> 02/23/2523 DD/ 1 TD/TT: 02/23/25821 Talent Acquisition Partner: [facility] [address] [place] [address] XRay Report Signed Patient: Ziyad Ambrocio MR#: [id number] 045 : 1955 Acct:[id number] Age/Sex: 69 / M ADM Date: 02/20/25 Loc: HO.HOSX Attending Dr: Richard Solano MD, PhD Ordering Physician: Simon Solano MD, PhD Date of Service: 02/20/25 Procedure(s): XR lum bar spine 4V min Accession Number(s): [id number] cc: Blue Acosta MD; Simon Solano MD, [...] in OV> 02/23/25822 DD/ 1 TD/TT: 02/23/25821 Talent Acquisition Partner: US bladder Reviewed date:05/28/2025 12:37:23 PM Interpretation: Performing Lab: Notes/Report: [facility] [address] [place] [address] Ultrasound Report Signed Patient: Mahin Ambrocio MR#: [id number] 045 : 1955 Acct:[id number] Age/Sex: 69 / M ADM Date: 05/28/25 Loc: HO.HMGCX Attending Dr: Don Aj MD Ordering Physician: Don Aj MD Date of Service: 05/28/25 Procedure(s): US bladder Accession Number(s): [id number] cc: Don Aj MD; Blue Acosta MD [...] in OV> 05/28/25946 DD/ 5 TD/TT: 05/28/25945 Talent Acquisition Partner: [facility] [address] [place] [address] [place] [address] Ultrasound Report Signed Patient: Ziyad Ambrocio G MR#: [id number] 045 : 1955 Acct:[id number] Age/Sex: 69 / M ADM Date: 05/28/25 [facility]: Joselin Bach MD Ordering Physician: Don Aj MD Date of Service: 05/28/25 Procedure(s): US bladder Accession Number(s): [id number] cc: Don Aj MD; Blue Acosta MD [...] in OV> 05/28/25946 DD/ 5 TD/TT: 05/28/25945 Talent Acquisition Partner: Harshil Bates. Panel Reviewed date:07/10/2025 12:37:03 PM Interpretation: Performing Lab:[facility], [address] [place] [phone] Notes/Report: Sodium 142 135-145 mmol/L Potassium 4.2 [...] 3.5-5.0 g/dL Alkaline Phosphatase 78 39-117 U/L Complete Blood Count Auto Di ff (Not yet reviewed by provider) Interpretation: Performing Lab:[facility], [address] [place] [phone] Notes/Report: White Blood Count 7.9 4.8-10.8 X10*3/uL Red Blood Count 4.61 4.60-5.80 X10*6/uL Hemoglobin 13.8 14.0-18.0 g/dl Hematocrit 41.0 42.0-52.0 % Mean Corpuscular Volume 88.9 80.0-98.0 fL Mean Corpuscular Hemoglobin 29.9 27.0-33.0 pg Mean Corpuscular HGB Conc 33.7 31.0-36.0 g/dl Red Cell Distribution Width 11.9 11.0-16.0 % Platelet Count 186 160-400 X10*3/uL Mean Platelet Volume 9.8 9.4-12.4 fL Neutrophils Percent Auto 53.0 45-73 % Imm Gran Pct Auto 0.1 0.0-0.4 % Lymphocytes Percent Auto 32.9 20-40 % Monocytes Percent Auto 10.3 2-11 % Eosinophils Percent Auto 2.9 0-4 % Basophils Percent Auto 0.8 0-2 % NRBC Pct Auto 0.0 0.0-0.2 /100WBC Neutrophils Absolute Auto 4.2 2.0-8.3 x10*3/u L Imm Gran Abs Auto 0.01 0.00-0.03 X10*3/uL Lymphocytes Absolute Auto 2.6 1.2-4.9 X10*3/u L Monocytes Absolute Auto 0.8 0.1-1.2 X10*3/uL Eosinophils Absolute Auto 0.2 0.0-0.4 X10*3/u L Basophils Absolute Auto 0.1 0.0-0.2 X10*3/uL NRBC Abs Auto 0.000 0.0-0.012 X10*3/uL Reason For Referral No Information Medications Medication [...] 2 tabs Orally Once a day Active Triamcinolone Acetonide 0.5 % APPLY TO [...] 4 hrs for 30 days 11/20/2016 Not-Taking Lisinopril 20 MG TAKE 1 TABLET BY DARIA TH EVERY DAY Active Flecainide Acetate 100 MG 1 tablet Orall y twice a day Active diazePAM 5 MG 1-2 tablet as needed Orally every 8 hours Not-Taking levoFLOXacin 500 MG 1 tablet Orally Once a day Not-Taking Mounjaro 2.5 MG/0.5ML as directed Subcutaneous weekly for 30 days 07/16/2025 Active Mupirocin 2 % 1 application Externally Three times a day for 10 days 01/24/2021 Not-Taking Meclizine HCl 25 MG TAKE 1 TABLET BY DARAI TH EVERY DAY NEEDED for 30 Not-Taking [...] Administered pt was given the vaccine at [facility] on [facility]. Fluarix Quadrivalent IM Intramuscular 06/24/2018 Administe [...] Problem Status W/U Status Risk Notes Problem 298096486 Diverticulitis (K57.92) Active confirmed Problem Sinusitis (00510382) Sinusitis (J32.9) Active c onfirmed Problem 133735711 Mixed hyperlipidemia (E78.2) Active confirmed Problem 457796575 Paroxysmal atria l fibrillation (I48.0) Active confirmed Problem 11903228 Atherosclerosis of aorta (I70.0) Active confirmed Problem 43189543634967173 Acute recurren t frontal sinusitis (J01.11) Active confirmed Problem 238333089 Angina effort (I20.8) Active confirmed Problem 220691045 Lumbar disc disease (M51.9) Active confirmed Problem 522785601 Tubular adenoma of colon (D12.6) Active confirmed Problem 51369074 Essential hypertension (I10) Active confirmed Problem 4820156 Prediabetes (R73.09) Active confirmed Problem 646788521 Morbid obesity due to excess calories (E66.01) Active confirmed Problem 284014186 Cervical disc disease (M50.90) Active confirmed Problem 726302801 Hammertoe of lef t foot (M20.42) Active [...] Location Date Provider Diagnosis Blue Acosta MD [address] [place] [address] [address] [place] [id number] 01/02/2025 Blue Shaher Mixed hyperlipidemia E78.2 and Prediabetes R73.09 Blue Acosta MD [address] [place] [address] [address] [place] [id number] 07/10/2025 Blue Acosta Mixed hyperlipidemia E78.2 ; Encounter for administration of vaccine Z23 ; Essential hypertension I10 and Prediabetes R73.09 Blue Acosta MD [address] [place] [address] [address] [id number] 01/09/2025 Bleu Acosta Pleural effusion J90 ; Lumbar disc disease with radiculopathy M51.16 ; Foot drop, left M21.372 ; Prediabetes R73.09 and Mixed hyperlipidemia E78.2 Blue Acosta MD [address] [place] [address] [address] [id number] 07/16/2025 Blue Acosta Prediabetes R73.09 ; Essential hypertension I10 ; Sinusitis J32.9 ; Mixed hyperlipidemia E78.2 ; Paroxysmal atrial fibrillation I48.0 and Depression screening Z13.31 Blue Acosta MD [address] [place] [address] [address] [id number] 01/08/2025 Blue Acosta MD [address] [place] [address] [id number] 01/12/2025 Blue Acosta MD [address] [place] [address] [id number] 01/13/2025 Blue Acosta Pleural effusion J90 Assessments Encounter Date Diagnosis (ICD Code) Assessment Notes Treatment Notes Treatment Clinical Notes Section Notes 01/02/2025 Mixed hyperlipidemia (ICD-10 - E78.2) 07/10/2025 Mixed hyperlipidemia (ICD-10 - E78.2) 07/10/2025 Encounter for administration of vaccine (ICD-10 - Z23) 01/09/2025 Pleural effusion (ICD-10 - J90) pending diagnostic testing, THE ORDER WAS PRINTED AND GIVEN TO MAH[facility] 01/09/2025 Lumbar disc disease with radiculopathy (ICD-10 - M51.16) pending diagnstic testing, THE ORDER HAS BEEN FAXED TO [facility] FOR SCHEDULING 07/16/2025 Prediabetes (ICD-10 - R73.09) patient verbalized understanding of medication and directions for use 07/16/2025 Essential hypertension (ICD-10 - I10) doing well, will continue current regiment 01/13/2025 Pleural effusion (ICD-10 - J90) Order made and put into the future order folder for . 01/02/2025 Prediabetes (ICD-10 - R73.09) 07/10/2025 Essential hypertension (ICD-10 - I10) 01/09/2025 Foot drop, left (ICD-10 - M21.372) pending diagnostic testing 07/16/2025 Sinusitis (ICD-10 - J32.9) not having symptoma and ears are normal 07/10/2025 Prediabetes (ICD-10 - R73.09) 01/09/2025 Prediabetes (ICD-10 - R73.09) stable, no need for medication at this time, will contiue to monitor 07/16/2025 Mixed hyperlipidemia (ICD-10 - E78.2) doing well, will contnue current regiment 01/09/2025 Mixed hyperlipidemia (ICD-10 - E78.2) stable, will continue current regiment 07/16/2025 Paroxysmal atrial fibrillation (ICD-10 - I48.0) stale, will continue current regiment 07/16/2025 Depression screening (ICD-10 - Z13.31) negative screen Plan Of Treatment Pending Test Test Name Order Date CT ABD & PELVIS WITH CONTRAST 09/07/2020 MRI LUMBAR SPINE NO CONTRAST 01/09/2025 XR CHEST 2 VIEW PA & LAT 01/09/2025 Complete Blood Count Auto Diff 5 Comprehensive [place]. Panel Fast 5 Microalbumin, Random 07/10/2025 XR chest 2V 01/13/2025 UA ClnCatch+Micro w/rflx Cult 07/10/2025 Future Test Test Name Order Date CT ABD & PELVIS WITH CONTRAST 2020 Next Appt Details Provider Name:Blue garrido, 08/18/2025 09:00:00 AM, [address] [place] [address], [address], [place], [place], [phone], Provider Name:Blue garrido, 01/18/2026 07:30:00 AM, [address] [place] [address], [address], [place], [place], [phone], Provider Name:Blue garrido, 01/25/2026 09:00:00 AM, [address] [place] [address], [address], [place], [place], [phone], Provider Name:Blue Arechiga ier, 07/12/2026 07:00:00 AM, [address], [address], [place], [phone], Provider Name:Blue Arechiga ier, 07/19/2026 08:30:00 AM, [address], [address], [place], [phone], Insurance Providers Payer Name Payer Address Payer Phone Subscriber Number Group Number Insured Name Patient Relationship to Insured Coverage Start Date Coverage End Date MEDICARE NHIC SOL [address] [place] [address] [id number] Mahin Ambrocio Self - patient is the insured [facility] [address] [place] [phone] [id number] Mahin Ambrocio Self - patient is the insured Medical (General) History Medical History History ICD Code colonoscopy 04/2012 for recta l bleeding due in 10 years; Colonoscopy done 10/27/[address] Sanchez - repeat 5 years. 03/30/25 colonoscopy - Daniel repeat 5y
[2025-08-02 12:42] LABS: Alanine Aminotransferase 26 U/L (0-40); Albumin Level 4.3 g/dL (3.5-5.0); Alkaline Phosphatase 81 U/L (39-117); Anion Gap 14 (12-20); Aspartate Amino Transferase 32 U/L (5-37); Blood Urea Nitrogen 15 mg/dL (9-16); Calcium 9.5 mg/dL (8.4-10.2); Carbon Dioxide 26 mmol/L (22-29); Chloride 105 mmol/L (96-108); Creatinine Clr Calc Pharmacy 109.7; Estimated Glomerular Filt Rate > 60; Potassium 4.6 mmol/L (3.3-5.1); Sodium 140 mmol/L (135-145); Total Protein 7.3 g/dL (6.5-8.0)
[2025-08-02 13:10] LABS: INTERNATIONAL NORM RATIO 2.1 (0.9-1.1); Prothrombin Time 23.8 SEC (10.9-12.4)
[2025-08-02 15:09] VITALS: BP 149/43; PULSE 74; RESP 18; TEMP 36.3; O2SAT 94
== END 2025-08-02 15:09 | disposition home or self-care (01) ==
PROVIDERS: Registered Nurse Emergency; Emergency Provider Emergency Medicine; PCP Internal Medicine
DX: R04.0 Epistaxis (principal); I10 Essential (primary) hypertension; I48.0 Paroxysmal atrial fibrillation; Z79.01 Long term (current) use of anticoagulants
CPT/HCPCS: 36415; 80053; 85025; 85610; 99283; 99284

== ENCOUNTER 2025-08-04 17:31 | Emergency (ER) | payer MEDICARE, OTHER, SELFPAY ==
--- OUTSIDE RECORDS SUMMARY | 2024-04-09 11:15 | XMS_ITS ---
Author Organization [facility] Address [address] [place] [address] Care Team Providers Care Steeplechase Jockey Name Role Phone Blue Acosta MD Primary Care Provider Milli Jimenez Unavailable [phone] Camara Encounters Encounter Location Date Provider Diagnosis [facility] [address] [place] [address] 04/09/2024 Milli Yost Plan Of Treatment No Information Progress Notes * Mahin JORGE GDOB:[birth year] (69 yo M)Acc No.[id number]:04/09/2024 Progress Note Patient: Mahin LAWRENCE Provider: Harjit Yost DPM :1955 A ge:68 Y S ex:Male Date:04/09/2024 Address: [place], [id number] Pcp:Blue Acosta MD Subjective: * Chief Complaints: [...] 04/09/2024 Generated for Navjot mccall/Janay/Kristy on: 1 09:37 PM EDT
--- OUTSIDE RECORDS SUMMARY | 2024-04-23 06:00 | XMS_ITS ---
Author Organization [facility] Address [address] [facility] [place] [address] Care Team Providers Care Nascar Driver Name Role Phone Karla PAZ, Blue Primary Care Provider UnaMilli Barrett Unavailable [phone] Encounters Encounter Location Date Provider Diagnosis [facility] ([facility] [address] [place] [phone] 04/23/2024 Milli Yost Plan Of Treatment No Information Progress Notes * Mahin JORGE GDOB:[birth year] (69 yo M)Acc No.[id number]:04/23/2024 Patient: Mahin LAWRENCE Provider: Harjit Yost DPM [...] 04/23/2024 Generated for Printi ng/Faxing/eTransmitting on: 1 09:42 PM EDT
--- OUTSIDE RECORDS SUMMARY | 2024-07-03 03:30 | XMS_ITS ---
Author Organization Blue [facility]osta MD Address [address] [place], [place] [phone] Care Team Providers Care Visualization Developer Name Role Phone Blue Acosta Primary Care Provider Results Component Value Reference Range Notes Complete Blood Count Auto Di ff Reviewed date:07/03/2024 05:03:13 PM Interpretation: Performing Lab:[facility], [address] [place] [phone] Notes/Report: White Blood Count 8.5 4.8-10.8 X10*3/uL [...] NRBC Abs Auto 0.000 0.0-0.012 X10*3/uL Comprehensive [place]. Panel Fa st Reviewed date:07/03/2024 12:20:41 PM Interpretation: Performing Lab:[facility], [address] [place] [phone] Notes/Report: Sodium 140 135-145 mmol/L Potassium 4.2 3.3-5.1 mmol/L Chloride 105 96-108 mmol/L Carbon Dioxide 28 22-29 mmol/L Anion Gap 11 12-20 Blood Urea Nitrogen 16 9-16 mg/dL Creatinine 0.91 0.5-1.4 mg/dL Estimated Glomerular Filt Rate > 60 NOTE: For -Singaporean individuals, multiply the result by 1.210. Chronic [...] Panel Reviewed date:07/03/2024 12:16:21 PM Interpretation: Performing Lab:[facility], [address] [place] [phone] Notes/Report: Triglycerides 103 <150 mg/dL Desirable Triglyceride: [...] (Free>4and<10) Reviewed date:07/03/2024 12:17:59 PM Interpretation: Performing Lab:[address] [phone] Notes/Report: PSA,Total (Free>4and<10) 0.31 0.00-4.00 ng/mL A [...] Random Reviewed date:07/03/2024 12:30:42 PM Interpretation: Performing Lab:[facility], [address] [place] [phone] Notes/Report: Creatinine Urine 52.54 Microalbumin Urine < 5.0 Microalbum/Creatinine Ratio Ur TNP <30 ug/mg cr Unable to calculate albumin/creatinine ratio due to low microalbumin or creatinine result. Hemoglobin A1c Reviewed date:07/03/2024 12:16:31 PM Interpretation: Performing Lab:[address] [phone] Notes/Report: Hemoglobin A1c % 5.6 <6.0 % [...] average glucose, using the formula of the F7G-Fzqovwm Average Glucose study (ADAG), Diabetes Care, Vol.31,#8, May. 2007 UA ClnCatch+Micro w/rflx Cul t Reviewed date:07/03/2024 12:27:43 PM Interpretation: Performing Lab:[facility], [address] [place] [phone] Notes/Report: Urine, Clean Catch Color Urine Yellow Appearance Urine Clear PH 5.5 5.0-9.0 Glucose Urine UA Negative Negative mg/dL Urine Blood Negative Negative Specific [place] - Urine 1.010 1.005-1.025 Urine Protein Negative [...] Date Provider Diagnosis Blue Acosta MD [address] [facility] [address] [place], [place] [phone] 07/03/2024 Blue Acosta Mixed hyperlipidemia E78.2 ; [...] 09:00:00 AM, [address], [address], [place], [place], [phone], Provider Name:Blue Arechiga ier, 01/18/2026 07:30:00 AM, [address], [address], [place], [phone], Provider Name:Blue Arechiga ier, 01/25/2026 09:00:00 AM, [address], [address], [place], [phone], Provider Name:Blue Arechiga ier, 07/12/2026 07:00:00 AM, [address], Suite [facility], [place], [phone], Provider Name:Blue Arechiga ier, 07/19/2026 08:30:00 AM, [address] [facility], Suite [facility], [place], [phone], Progress Notes * Mahin AMBROCIO GDOB:[birth year] (69 yo M)Acc No.[id number]:07/03/2024 Progress Note Patient: Mahin LAWRENCE Provider: Madan Acosta MD :1955 A ge:68 Y S ex:Male Date:07/03/2024 Address:[address] [place] [address] Subjective: * Chief Complaints: * 1 . [...] - 07/03/2024 07:30 AM) L AB: Comprehensive [place]. Panel Fast (Collection Date & Time - [...] - 07/03/2024 07:30 AM) L AB: Comprehensive [place]. Panel Fast (Collection Date & Time - [...] FLU VAC NO FEE SCHED SAME DAY, [address] VENIPUNCT, ROUTINE* * * The named appointment provid er may or may not be the originator of this progress note, and it is not deemed complete until electronically signed by the appointment provider. Sign off status: Pending * Provider: Madan Acosta MD Date: 0 07/03/2024 Generated for Navjot mccall/Janay/Tanoitting on: 1 09:43 PM EDT
--- OUTSIDE RECORDS SUMMARY | 2024-07-10 07:00 | XMS_ITS ---
Author Organization Blue Acosta MD Address [address] [place], [place] [phone] Care Team Providers Care Music Copyist Name Role Phone Blue Acosta Primary Care Provider [phone] Allergies Allergen (clinical drug ingredient) Drug/Non Drug [...] Location Date Provider Diagnosis Blue Acosta MD [address] [place] [address] [place] [phone] 07/10/2024 Blue Acosta Essential hypertensi on I10 [...] Reason: Provider Name:Blue garrido, 08/18/2025 09:00:00 AM, [address] [place] [address], [address], [phone], Provider Name:Blue garrido, 01/18/2026 07:30:00 AM, [address] [place] [address], [address], [phone], Provider Name:Blue garrido, 01/25/2026 09:00:00 AM, [address] [place] [address], [address], [phone], Provider Name:Blue garrido, 07/12/2026 07:00:00 AM, [address] [place] [address], [address], [phone], Provider Name:Blue garrido, 07/19/2026 08:30:00 AM, [address] [place] [address], [address], [phone], Progress Notes * Mahin AMBROCIO GDOB:[birth year] (68 yo M)Acc No.[id number]:07/10/2024 Patient: Mahin Galdamez Provider: Madan Acosta MD :1955 A ge:68 Y S ex:Male Date:07/10/2024 Address:[address] [place], [place] [phone] Subjective: * Chief Complaints: * R eview [...] 1 cat. no Travel outside of the [facility], [facility]. * Medications: T akingGabapentin 300 MG [...] mg/dL Urine Blood Negative Negative - Specific [place] - Urine 1.010 1.005-1.025 - Urine Protein [...] Urine 0-2 0-2 - /LPF L ab:Comprehensive [place]. Panel Fast (Order Date - 07/03/2024) (Collection [...] MD Date: 0 07/10/2024 Generated for Navjot mccall/Janay/Tanoitting on: 1 09:38 PM EDT History and Physical Notes * [...]
--- OUTSIDE RECORDS SUMMARY | 2025-01-02 04:00 | XMS_ITS ---
Author Organization Blue Acosta MD Address [address] [place], [place] [phone] Care Team Providers Care Second Steward Name Role Phone Blue Acosta Primary Care Provider Results Component Value Reference Range Notes Liver Panel Reviewed date:01/02/2025 12:30:46 PM Interpretation: Performing Lab:[address] [phone] Notes/Report: Bilirubin Total 0.6 0.0-1.0 mg/dL Bilirubin Direct 0.3 0.0-0.5 mg/dL Aspartate Amino Transferase 29 5-37 U/L Alanine Aminotransferase 22 0-40 U/L Total Protein 7.6 6.5-8.0 g/dL Albumin Level 3.9 3.5-5.0 g/dL Alkaline Phosphatase 80 39-117 U/L Glucose Fasting Reviewed date:01/02/2025 12:30:54 PM Interpretation: Performing Lab:[address] [address] Notes/Report: Glucose Fasting 118 60-99 mg/dL A fasting glucose from 100-125 mg/dl is considered impaired (pre-diabetes). Lipid Panel with Reflex Reviewed date:01/02/2025 12:31:05 PM Interpretation: Performing Lab:[address] [phone] Notes/Report: Triglycerides 118 <150 mg/dL Desirable Triglyceride: [...] A1c Reviewed date:01/03/2025 06:16:13 PM Interpretation: Performing Lab:[facility], [address] [place] [phone] Notes/Report: Hemoglobin A1c % 5.6 <6.0 % [...] average glucose, using the formula of the W7Y-Hwpivwt Average Glucose study (ADAG), Diabetes Care, Vol.31,#8, May. 2007 REASON FOR VISIT FASTING LIPIDS Encounters Encounter Location Date Provider Diagnosis Blue Acosta MD [address] [place] [address] [place] [phone] 01/02/2025 Blue Acosta Mixed hyperlipidemia E78.2 and Prediabetes R73.09 Assessments Encounter Date Diagnosis (ICD Code) Assessment Notes Treatment Notes Treatment Clinical Notes Section Notes 01/02/2025 Mixed hyperlipidemia (ICD-10 - E78.2) 01/02/2025 Prediabetes (ICD-10 - R73.09) Plan Of Treatment Next Appt Details Provider Name:Blue garrido, 08/18/2025 09:00:00 AM, [address] [place] [address], Suite [facility], [place], [place], [phone], Provider Name:Blue garrido, 01/18/2026 07:30:00 AM, [address], [address], [place], [phone], Provider Name:Blue Arechiga ier, 01/25/2026 09:00:00 AM, [address], [address], [place], [phone], Provider Name:Blue Arechiga ier, 07/12/2026 07:00:00 AM, [facility], [address], [place], [place], [phone], Provider Name:Blue Arechiga ier, 07/19/2026 08:30:00 AM, [address] [facility] [address], [address], [place], [place], [phone], Progress Notes * Mahin AMBROCIO GDOB:[birth year] (69 yo M)Acc No.[id number]:01/02/2025 Progress Note Patient: Mahin LAWRENCE Provider: Madan Acosta MD :1955 A ge:69 Y S ex:Male Date:01/02/2025 Address:[address] [place], [place] [phone] Subjective: * Chief Complaints: * 1 . [...] 01/02/2025 Generated for Navjot mccall/Janay/Kristy on: 1 09:37 PM EDT
--- OUTSIDE RECORDS SUMMARY | 2025-01-08 16:26 | XMS_ITS ---
Author Organization Blue Acosta MD Address [address] [place] [address] [place] [address] [phone] Care Team Providers Care Heating Element Winder Name Role Phone Blue Acosta Primary Care Provider [phone] REASON FOR VISIT ER Encounters Encounter Location Date Provider Diagnosis Blue Acosta MD [address] [place] [address] [place] [address] [phone] 01/08/2025 Blue Acosta Plan Of Treatment Next Appt Details Provider Name:Blue garrido, 08/18/2025 09:00:00 AM, [address] [place] [address], [address], [phone], Provider Name:Blue garrido, 01/18/2026 07:30:00 AM, [address] [place] [address], [address], [phone], Provider Name:Blue garrido, 01/25/2026 09:00:00 AM, [address] [place] [address], [address], [phone], Provider Name:Blue garrido, 07/12/2026 07:00:00 AM, [address] [place] [address], [address], [phone], Provider Name:Blue garrido, 07/19/2026 08:30:00 AM, [address] [place] [address], [phone], Progress Notes * Mahin AMBROCIO GDOB:[birth year] (69 yo M)Acc No.[id number]:01/08/2025 Patient: Mahin LAWRENCE :1955 A ge:69 Y S ex:Male Address:[address] [place], [place] [phone] * true * Date: Generated for Navjot mccall/Janay/Tanoitting on: 09:40 PM EDT
--- OUTSIDE RECORDS SUMMARY | 2025-01-09 05:15 | XMS_ITS ---
Author Organization Blue Acosta MD Address [address] [place], [place] [phone] Care Team Providers Care Administrative Supervisor Name Role Phone Blue Acosta Primary [...] kg/m2 01/09/2025 weight is down 6 pounds [facility] e 07-10-24 Encounters Encounter Location Date Provider Diagnosis Blue Acosta MD [address] [place] [address] [address] [place], [place] [phone] 01/09/2025 Blue Acosta Pleural effusion J90 ; [...] testing, THE ORDER HAS BEEN FAXED TO [facility] FOR SCHEDULING 01/09/2025 Foot drop, left (ICD-10 [...] testing, THE ORDER HAS BEEN FAXED TO [facility] FOR SCHEDULING Foot drop, left pending diagnostic t esting Prediabetes stable, no need for medication at this time, will contiue to monitor Mixed hyperlipidemia stable, will contin ue current regiment Pending Test Test Name Order Date MRI LUMBAR SPINE NO CONTRAST 01/09/2025 XR CHEST 2 VIEW PA & LAT 01/09/2025 Next Appt Details Provider Name:Blue Arechiga ier, 08/18/2025 09:00:00 AM, [address] [place] [address], [address] [place] [address], [phone], Provider Name:Blue Arechiga ier, 01/18/2026 07:30:00 AM, [address] [place] [address], [address] [place] [address], [phone], Provider Name:Blue Arechiga ier, 01/25/2026 09:00:00 AM, [address] [place] [address], [address], [phone], Provider Name:Blue Arechiga ier, 07/12/2026 07:00:00 AM, [address] [place] [address], [address] [place] [address], [phone], Provider Name:Blue Arechiga ier, 07/19/2026 08:30:00 AM, [address] [place] [address], [address] [place] [address], [phone], Progress Notes * Kyrie AMBROCIO GDOB:[birth year] (69 yo M)Acc No.[id number]:01/09/2025 Progress Notes Patient: Kyrie LAWRENCE Provider: Madan Acosta MD :1955 A ge:69 Y S ex:Male Date:01/09/2025 Address:[address] [place], [place] [phone] Subjective: * Chief Complaints: * 6 MO [...] testing, THE ORDER HAS BEEN FAXED TO [facility] FOR SCHEDULING 3. F oot drop, left [...] 01/09/2025 Generated for Navjot mccall/Janay/Tanoitting on: 1 09:37 PM EDT History and Physical Notes * [...]
--- OUTSIDE RECORDS SUMMARY | 2025-01-12 04:57 | XMS_ITS ---
Author Organization Blue Acosta MD Address [address] [place] [address] [place] [address] [phone] Care Team Providers Care University President Name Role Phone Blue Acosta Primary Care Provider [phone] REASON FOR VISIT MRI order Encounters Encounter Location Date Provider Diagnosis Blue Acosta MD [address] [place] [address] [place] [address] [phone] 01/12/2025 Blue Acosta Plan Of Treatment Next Appt Details Provider Name:Blue garrido, 08/18/2025 09:00:00 AM, [address] [place] [address], [address], [phone], Provider Name:Blue garrido, 01/18/2026 07:30:00 AM, [address] [place] [address], [address], [phone], Provider Name:Blue garrido, 01/25/2026 09:00:00 AM, [address] [place] [address], [address], [phone], Provider Name:Blue garrido, 07/12/2026 07:00:00 AM, [address] [place] [address], [phone], Provider Name:Blue garrido, 07/19/2026 08:30:00 AM, [address] [place] [address], [phone], Progress Notes * Mahin AMBROCIO GDOB:[birth year] (69 yo M)Acc No.[id number]:01/12/2025 Patient: Mahin LAWRENCE :1955 A ge:69 Y S ex:Male Address:[address] [place] [phone] * true * Date: Generated for Navjot mccall/Janay/Dietersmitting on: 09:43 PM EDT
--- OUTSIDE RECORDS SUMMARY | 2025-01-13 10:52 | XMS_ITS ---
Author Organization Blue Acosta MD Address [address] [place] [address] [place] [address] [phone] Care Team Providers Care Branch Operation Evaluation Manager Name Role Phone Blue Acosta Primary Care Provider REASON FOR VISIT Repeat CXR Encounters Encounter Location Date Provider Diagnosis Blue Acosta MD [address] [place] [phone] 01/13/2025 Blue Acosta Pleural effusion J90 Assessments [...] Details Provider Name:Blue garrido, 08/18/2025 09:00:00 AM, [address] [place] [address], [address], [phone], Provider Name:Blue garrido, 01/18/2026 07:30:00 AM, [address] [place] [address], [address], [phone], Provider Name:Blue garrido, 01/25/2026 09:00:00 AM, [address] [place] [address], [address], [phone], Provider Name:Blue garrido, 07/12/2026 07:00:00 AM, [address], [address], [place], [place], [phone], Provider Name:Blue Arechiga ier, 07/19/2026 08:30:00 AM, [address], [address], [place], [place], [phone], Progress Notes * Mahin AMBROCIO GDOB:[birth year] (69 yo M)Acc No.[id number]:01/13/2025 Patient: Yanick COLEMANMahin MORLEY :1955 A ge:69 Y S ex:Male Address:[address] [place] [address] Subjective: * Chief Complaints: * R epeat CXR * Medical History: * Surgical History: * Hospitalization/Major Diagno stic Procedure: * Medications: Objective: * Vitals: * Physical Examination: Assessment: * Assessment: 1. P leural effusion - J90 Plan: * Treatment: * Procedure Codes: * true * Date: Generated for Navjot mccall/Janay/eTransmitting on: 09:39 PM EDT
--- OUTSIDE RECORDS SUMMARY | 2025-03-20 05:30 | XMS_ITS ---
Author Organization [facility] Address [address] [place] [address] Care Team Providers Care Tea Blender Name Role Phone Blue Acosta MD Primary Care Provider Corby Michel [phone] REASON FOR VISIT screening Encounters Encounter Location Date Provider Diagnosis [facility] [place] [address] [place] [phone] 03/20/2025 Corby Sanhcez Plan Of Treatment No Information Progress Notes * JORGE KYRIE GDOB:[birth year] (69 yo M)Acc No.[id number]:03/20/2025 COLON WITH MAC Patient: KYRIE LAWRENCE Provider: Del Sanchez MD :1955 A ge:69 Y S ex:Male Date:03/20/2025 Address:[address] [place], [place] [phone] Pcp:Blue Acosta MD Subjective: * Chief Complaints: [...] 03/20/2025 Generated for Printi ng/Faxing/eTransmitting on: 1 09:42 PM EDT
--- OUTSIDE RECORDS SUMMARY | 2025-03-30 09:10 | XMS_ITS ---
Author Organization [facility] Address [address] [place] [phone] Care Team Providers Care Bank Credit Card Collection Clerk Name Role Phone Blue Acosta MD Primary Care Provider Corby Michel [phone] Encounters Encounter Location Date Provider Diagnosis [facility] [place] [address] [place] [phone] 03/30/2025 Corby Sanchez Colon cancer scree ascencion [...] KYRIE JORGE GDOB:[birth year] (69 yo M)Acc No.[id number]:03/30/2025 COLON WITH MAC Patient: Yanick COLEMANPEYMAN KYRIE G Provider: Del Sanchez MD :1955 A ge:69 Y S ex:Male Date:03/30/2025 Address:[address] [place], [place] [phone] Pcp:Blue Acosta MD Subjective: * Chief Complaints: [...] 03/30/2025 Generated for Navjot mccall/Janay/Dietersmitting on: 1 09:41 PM EDT
--- OUTSIDE RECORDS SUMMARY | 2025-07-10 03:00 | XMS_ITS ---
Author Organization Blue Acosta MD Address [address] [place], [place] [phone] Care Team Providers Care Field Support Engineer Name Role Phone Blue Acosta Primary Care Provider Results Component Value Reference Range Notes Complete Blood Count Auto Di ff Reviewed date:07/10/2025 12:29:22 PM Interpretation: Performing Lab:[facility], [address] [place] [phone] Notes/Report: White Blood Count 10.2 4.8-10.8 X10*3/uL [...] Panel Reviewed date:07/10/2025 12:29:39 PM Interpretation: Performing Lab:[address] [phone] Notes/Report: Triglycerides 98 <150 mg/dL Desirable Triglyceride: [...] (Free>4and<10) Reviewed date:07/10/2025 12:29:01 PM Interpretation: Performing Lab:[facility], [address] [place] [phone] Notes/Report: PSA,Total (Free>4and<10) 0.26 0.00-4.00 ng/mL A [...] A1c Reviewed date:07/10/2025 12:28:51 PM Interpretation: Performing Lab:[facility], [address] [place] [phone] Notes/Report: Hemoglobin A1c % 6.1 <6.0 % [...] average glucose, using the formula of the G4P-Cbgchki Average Glucose study (ADAG), Diabetes Care, Vol.31,#8, May. 2007 REASON FOR VISIT FASTING LABS Immunizations Vaccine Route Administration Date Status Comme nts Influenza High Dose IM Intramuscular 07/10/2025 Administer ed Encounters Encounter Location Date Provider Diagnosis Blue Acosta MD [address] [place], [place] [phone] 07/10/2025 Blue Acosta Mixed hyperlipidemia E78.2 ; [...] Pending Test Test Name Order Date Comprehensive [place]. Panel Fast 5 Microalbumin, Random 07/10/2025 UA ClnCatch+Micro w/rflx Cult 07/10/2025 Next Appt Details Provider Name:Blue garrido, 08/18/2025 09:00:00 AM, [address], [address], [place], [place], [phone], Provider Name:Blue Arechiga ier, 01/18/2026 07:30:00 AM, [address], [address], [place], [phone], Provider Name:Blue Arechiga ier, 01/25/2026 09:00:00 AM, [address], [address], [place], [phone], Provider Name:Blue Arechiga ier, 07/12/2026 07:00:00 AM, [address], [address], [place], [phone], Provider Name:Blue Arechiga ier, 07/19/2026 08:30:00 AM, [address], [address], [place], [phone], Progress Notes * Mahin AMBROCIO GDOB:[birth year] (69 yo M)Acc No.[id number]:07/10/2025 Progress Note Patient: Mahin LAWRENCE Provider: Madan Acosta MD :1955 A ge:69 Y S ex:Male Date:07/10/2025 Address:[address] [place], [place] [phone] Subjective: * Chief Complaints: * 1 . FASTING LABS. * Medical History: Objective: * Vitals: Assessment: * Assessment: 1. E ncounter for administration of vaccine - Z23 (Primary) 2 . M ixed hyperlipidemia - E78.2 3 . E ssential hypertension - I10 4 . P rediabetes - R73.09 Plan: * Treatment: 2. E ssential hypertension L AB: Comprehensive [place]. Panel Fast L AB: Microalbumin, Random L [...] AM) 3. P rediabetes L AB: Comprehensive [place]. Panel Fast L AB: Microalbumin, Random L [...] * Procedure Codes: 3 6415 VENIPUNCT, ROUTINE*, 38886 FLU VACC PRSV FREE INC ANTIG, G0008 [...] 07/10/2025 Generated for Navjot mccall/Janay/Tanoitting on: 1 09:39 PM EDT
--- OUTSIDE RECORDS SUMMARY | 2025-07-16 04:00 | XMS_ITS ---
Author Organization Blue Acosta MD Address [address] [place], [place] [phone] Care Team Providers Care Potato Chip Sorter Name Role Phone Blue Acosta Primary Care Provider [phone] Allergies Allergen (clinical drug ingredient) Drug/Non Drug Allergy documented on EMR Reaction Allergy Type Onset Date Status zolpidem ambien (uncoded) hallucinations Allergy Active amoxil (uncoded) rash Allergy Act dick Results Component Value Reference Range Notes Microalbumin, Random Reviewed date:07/16/2025 12:43:31 PM Interpretation: Performing Lab:[facility], [address] [place] [phone] Notes/Report: Creatinine Urine 91.72 Microalbumin Urine 8.0 Microalbum/Creatinine Ratio Ur 8.7 <30 ug/mg cr Albumin/Creatinine Ratio Reference Ranges: Normal: < 30 ug/mg creatinine Microalbuminuria: 30 - 300 ug/mg creatinine Clinical Albuminuria: > 300 ug/mg creatinine UA ClnCatch+Micro w/rflx Cul t Reviewed date:07/16/2025 12:43:48 PM Interpretation: Performing Lab:[facility], [address] [place] [phone] Notes/Report: Urine, Clean Catch Color Urine Yellow Appearance Urine Clear PH 6.5 5.0-9.0 Glucose Urine UA Negative Negative mg/dL Urine Blood Negative Negative Specific [place] - Urine 1.015 1.005-1.025 Urine Protein Negative [...] Status W/U Status Risk Notes Problem Sinusitis (84117365) Sinusitis (J32.9) Active confirmed Vital Signs Blood pressure systolic 162 mm Hg 07/16/20 25 Blood pressure diastolic 80 mm Hg 025 Height 73 in 07/16/2025 Weight 344 lbs 07/16/2025 BMI 45.38 kg/m2 07/16/2025 weight is up 6 pounds since 01-09-25 Encounters Encounter Location Date Provider Diagnosis Blue Acosta MD [address] [place] [address] [place] [phone] 07/16/2025 Blue Acosta Prediabetes R73.09 ; Essential [...] Provider Name:Blue Arechiga ier, 08/18/2025 09:00:00 AM, [address] [place] [address], [address] [place] [address], [phone], Provider Name:Blue Arechiga ier, 01/18/2026 07:30:00 AM, [address] [place] [address], [address], [phone], Provider Name:Blue reyr, 01/25/2026 09:00:00 AM, [address] [place] [address], [address], [phone], Provider Name:Blue Arechiga ier, 07/12/2026 07:00:00 AM, [address] [place] [address], [address], [phone], Provider Name:Blue Arechiga ier, 07/19/2026 08:30:00 AM, [address] [place] [address], [address], [phone], Progress Notes * Mahin AMBROCIO GDOB:[birth year] (69 yo M)Acc No.[id number]:07/16/2025 Patient: Yanick COLEMANMahin MORLEY Provider: Madan Acosta MD :1955 A ge:69 Y S ex:Male Date:07/16/2025 Address:[address] [place], [place] [phone] Subjective: * Chief Complaints: * R eview [...] MD Date: Generated for Navjot mccall/Janay/Tanoitting on: 09:43 PM EDT History and Physical Notes * [...]
--- OUTSIDE RECORDS SUMMARY | 2025-08-04 09:25 | XMS_ITS ---
Author Organization Blue Acosta MD Address [address] [place] [address] [place] [address] [phone] Care Team Providers Care Painter Hand Name Role Phone Blue Acosta Primary Care Provider REASON FOR VISIT ER Encounters Encounter Location Date Provider Diagnosis Blue Acosta MD [address] [place] [address] [place] [address] [phone] 08/04/2025 Blue Acosta Plan Of Treatment Next Appt Details Provider Name:Blue garrido, 08/18/2025 09:00:00 AM, [address] [place] [address], [address], [phone], Provider Name:Blue garrido, 01/18/2026 07:30:00 AM, [address] [place] [address], [address], [phone], Provider Name:Blue garrido, 01/25/2026 09:00:00 AM, [address] [place] [address], [address], [phone], Provider Name:Blue garrido, 07/12/2026 07:00:00 AM, [address] [place] [address], [address], [phone], Provider Name:Blue garrido, 07/19/2026 08:30:00 AM, [address] [place] [address], [phone], Progress Notes * Mahin AMBROCIO GDOB:[birth year] (69 yo M)Acc No.[id number]:08/04/2025 Patient: Mahin LAWRENCE :1955 A ge:69 Y S ex:Male Address:[address] [place], [place] [phone] * true * Date: Generated for Navjot mccall/Janay/Tanoitting on: 09:38 PM EDT
[2025-08-04 17:37] VITALS: BP 144/66; PULSE 66; RESP 20; TEMP 36.6; O2SAT 93; BMI 41.2
--- NOTE | 2025-08-04 17:39 | ED.GENADULT ---
HPI - General Adult General Chief complaint: Epistaxis Stated complaint: rt nostril still bleeding/here 08/02 Time Seen by Provider: 08/04/25 23:28 Source: patient Limitations: no limitations History of Present Illness ED Provider: Cristina Birmingham PA-C HPI narrative: 69-year-old male with a history of paroxysmal AFib on Xarelto, hyperlipidemia, hypertension, who presents with right-sided nosebleed. Patient states he had a nosebleed 3 days ago, it developed after sneezing. Today he developed additional bleeding which has since stopped since he has been in the emergency room. Related Data Home Medications ?Medication ?Instructions ?Recorded ?Confirmed metoprolol succinate 50 mg 50 mg PO DAILY 03/22/21 03/26/25 tablet,extended release 24 hr triamcinolone acetonide 0.5 % 1 appl topical DAILY 03/22/21 03/26/25 topical cream atorvastatin 20 mg tablet 20 mg PO DAILY 07/11/21 03/26/25 multivitamin 1 tab PO DAILY 12/11/22 03/26/25 lisinopril 20 mg tablet 20 mg PO DAILY 01/30/23 03/26/25 celecoxib 200 mg capsule (Celebrex) 200 mg PO DAILY 02/03/25 03/26/25 fluticasone propionate 50 1 spray intranasal DAILY 06/11/25 mcg/actuation nasal spray,suspension tramadol 50 mg tablet 50 mg PO DAILY PRN 06/11/25 Previous Rx's ?Medication ?Instructions ?Recorded chair, wheel (Wheel chair) #1 ea 03/04/21 chair, wheel (Wheel chair) #1 ea 03/04/21 docusate sodium 100 mg capsule 100 mg PO DAILY #60 caps 01/02/24 (Colace) flecainide 100 mg tablet 100 mg PO Q12H #180 tabs 06/27/24 rivaroxaban 20 mg tablet (Xarelto) 20 mg PO QPM #90 tabs 04/02/25 alfuzosin 10 mg tablet,extended 10 mg PO DAILY 90 days #90 tabs 06/17/25 release 24 hr cetirizine 10 mg tablet 10 mg PO DAILY PRN allergy 07/15/25 symptoms #30 tabs levofloxacin 750 mg tablet 750 mg PO Q24H 7 days #7 tabs 07/15/25 prednisone 20 mg tablet 40 mg (2 x 20 mg) PO DAILY 5 days 07/15/25 #10 tabs Allergies Allergy/AdvReac Type Severity Reaction Status Date / Time zolpidem (Ambien) Allergy Severe Unknown Verified 08/04/25 17:38 environmental allergies AdvReac Intermediate Sinus Verified 08/04/25 17:38 Inflammation PMFSH Past Medical History Medical History Renal cyst Bleeding hemorrhoids HTN (hypertension) PAF (paroxysmal atrial fibrillation) Surgical History (Updated 03/26/25 @ 14:10 by Cristina Mosqueda RN) Hx of endoscopic retrograde cholangiopancreatography H/O colonoscopy Hx of foot surgery History of tonsillectomy and adenoidectomy History of deviated nasal septum Hx of cholecystectomy History of mandibular surgery Family History Family History Father CVD (cardiovascular disease) Mother No problems noted. Social History Social History Alcohol intake: never Patient Tobacco Use Status: Never used Tobacco Smoked in Last 30 Days: No Use of substances other than those prescribed or required for medical reasons: No Advance Directives: No Advance Directives Information Provided: Yes Current occupational status: retired Physical Exam ED Vital Signs: Vital Signs - 24 hr 08/04/25 17:37 08/04/25 19:58 08/04/25 22:50 Temperature 97.8 F 98.1 F 97.9 F Pulse Rate 66 64 60 Respiratory Rate 20 16 16 Blood Pressure 144/66 H 119/56 L 123/70 Pulse Oximetry 93 92 96 Oxygen Delivery Method Room Air Room Air Room Air BMI result Body Mass Index 41.2 Course Course Course Narrative: RME, this is a rapid medical exam performed by Jared Buck please refer to primary provider for complete H&P- 69-year-old male presents for evaluation of a nosebleed. He was seen here 2 days ago for the same. He is on Xarelto for history of AFib. He appears to have a mild epistaxis in the emergency. Plan for repeat labs Medical Decision Making Medical Decision Making MDM Narrative: 69-year-old male with a history of paroxysmal AFib on Xarelto, hyperlipidemia, hypertension, who presents with right-sided nosebleed. Patient states he had a nosebleed 3 days ago, it developed after sneezing. Today he developed additional bleeding which has since stopped since he has been in the emergency room. Problem: Anticoagulation History: Per patient I have considered the following differential diagnoses: Anterior nosebleed, posterior nosebleed, polyp, cancer Plan: Screening labs were obtained from triage and they are stable, the bleeding has stopped the patient has been here for almost 7 hours. Sending with home care instructions. I have independently reviewed the following tests: Labs: No leukocytosis, not anemic, no electrolyte abnormality, INR 1.6 Differential Diagnosis Differential Diagnoses: The differential diagnosis associated with the presentation includes See medical decision-making Admission/Observation Consideration of admission/observation: Escalation of care including admission/observation considered Not applicable Lab Data MDM Lab Attestation statement: I reviewed the patient's lab results. 08/04/25 19:28 08/04/25 19:28 Labs: Lab Results 08/04/25 Range/Units 19:28 WBC 8.9 (4.8-10.8) X10*3/uL RBC 4.88 (4.60-5.80) X10*6/uL Hgb 14.4 (14.0-18.0) g/dl Hct 43.1 (42.0-52.0) % MCV 88.3 (80.0-98.0) fL MCH 29.5 (27.0-33.0) pg MCHC 33.4 (31.0-36.0) g/dl RDW 12.0 (11.0-16.0) % Plt Count 190 (160-400) X10*3/uL MPV 9.9 (9.4-12.4) fL Immature Gran % (Auto) 0.2 (0.0-0.4) % Neut % (Auto) 53.9 (45-73) % Lymph % (Auto) 30.4 (20-40) % Wheeler % (Auto) 11.0 (2-11) % Eos % (Auto) 3.6 (0-4) % Baso % (Auto) 0.9 (0-2) % Lymph # (Auto) 2.7 (1.2-4.9) X10*3/uL Wheeler # (Auto) 1.0 (0.1-1.2) X10*3/uL Eos # (Auto) 0.3 (0.0-0.4) X10*3/uL Baso # (Auto) 0.1 (0.0-0.2) X10*3/uL Abs Immat Gran (auto) 0.02 (0.00-0.03) X10*3/uL Absolute Neuts (auto) 4.8 (2.0-8.3) x10*3/uL Absolute Nucleated RBC 0.000 (0.0-0.012) X10*3/uL Nucleated RBC % (auto) 0.0 (0.0-0.2) /100WBC PT 18.3 H D (10.9-12.4) SEC INR 1.6 H (0.9-1.1) Sodium 141 (135-145) mmol/L Potassium 4.2 (3.3-5.1) mmol/L Chloride 105 (96-108) mmol/L Carbon Dioxide 28 (22-29) mmol/L Anion Gap 12 (12-20) BUN 20 H (9-16) mg/dL Creatinine 1.23 (0.5-1.4) mg/dL Estim Creat Clear Calc 88.6 Estimated GFR 58 Random Glucose 93 (60-115) mg/dL Calcium 9.6 (8.4-10.2) mg/dL Discharge Plan Discharge Clinical Impression: Epistaxis Patient Disposition: Home, Self-Care Instructions: Nosebleed (ED) Additional Instructions: All of your labs are stable, the bleeding resolved on its own. See home care instructions. Follow up with your primary care provider as needed. Prescriptions: No Action flecainide 100 mg tablet 100 mg PO Q12H Qty: 180 3RF Xarelto 20 mg tablet 20 mg PO QPM Qty: 90 3RF (DME) Wheel chair Kit See Rx Instructions .ROUTE .MEDSUPPLY Qty: 1 0RF Rx Instructions: As directed (DME) Wheel chair Kit See Rx Instructions .ROUTE .MEDSUPPLY Qty: 1 0RF Rx Instructions: As directed triamcinolone acetonide 0.5 % cream 1 appl topical DAILY metoprolol succinate 50 mg tablet extended release 24 hr 50 mg PO DAILY atorvastatin 20 mg tablet 20 mg PO DAILY multivitamin Tablet 1 tab PO DAILY lisinopril 20 mg tablet 20 mg PO DAILY alfuzosin 10 mg tablet extended release 24 hr 10 mg PO DAILY 90 Days Qty: 90 1RF docusate sodium [Colace] 100 mg capsule 100 mg PO DAILY Qty: 60 2RF celecoxib [Celebrex] 200 mg capsule 200 mg PO DAILY tramadol 50 mg tablet 50 mg PO DAILY PRN fluticasone propionate 50 mcg/actuation spray,suspension 1 spray intranasal DAILY levofloxacin 750 mg tablet 750 mg PO Q24H 7 Days Qty: 7 0RF cetirizine 10 mg tablet 10 mg PO DAILY PRN (Reason: allergy symptoms) Qty: 30 0RF prednisone 20 mg tablet 40 mg PO DAILY 5 Days Qty: 10 0RF Print Language: Azeri
[2025-08-04 19:46] LABS: MANUAL DIFF FLAG NO
[2025-08-04 19:47] LABS: Hematocrit 43.1 % (42.0-52.0); Hemoglobin 14.4 g/dl (14.0-18.0); Imm Gran Abs Auto 0.02 X10*3/uL (0.00-0.03); Imm Gran Pct Auto 0.2 % (0.0-0.4); Lymphocytes Absolute Auto 2.7 X10*3/uL (1.2-4.9); Mean Corpuscular HGB Conc 33.4 g/dl (31.0-36.0); Mean Corpuscular Hemoglobin 29.5 pg (27.0-33.0); Mean Corpuscular Volume 88.3 fL (80.0-98.0); NRBC Abs Auto 0.000 X10*3/uL (0.0-0.012); NRBC Pct Auto 0.0 /100WBC (0.0-0.2); Platelet Count 190 X10*3/uL (160-400); Red Blood Count 4.88 X10*6/uL (4.60-5.80); White Blood Count 8.9 X10*3/uL (4.8-10.8)
[2025-08-04 19:55] LABS: INTERNATIONAL NORM RATIO 1.6 (0.9-1.1); Prothrombin Time 18.3 SEC (10.9-12.4)
[2025-08-04 19:58] VITALS: BP 119/56; PULSE 64; RESP 16; TEMP 36.7; O2SAT 92
[2025-08-04 20:04] LABS: Anion Gap 12 (12-20); Blood Urea Nitrogen 20 mg/dL (9-16); Calcium 9.6 mg/dL (8.4-10.2); Carbon Dioxide 28 mmol/L (22-29); Chloride 105 mmol/L (96-108); Creatinine Clr Calc Pharmacy 88.6; Estimated Glomerular Filt Rate 58; Potassium 4.2 mmol/L (3.3-5.1); Sodium 141 mmol/L (135-145)
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
--- OUTSIDE RECORDS SUMMARY | 2025-08-04 21:39 | XMS_ITS | Data Portability ---
Author Organization BALDO Vora [facility], [facility] Address [address] [place] [address] Care Team Providers Care Core Winding Operator Name Role Phone [facility] Primary Care Provider [phone] Assessment No assessment recorded. Plan of Treatment Reminders Order Date Submit Date Provider Last Modified By Organization Details Last Modified Time Details Appointments None recorded. Lab rapid SARS CoV 2 Ag, QL IA, respiratory specimen 2022 023 [email or web address] [facility], [address] [place] [address], [phone], 3 13:13:33 rapid strep group A, throat 2022 023 [email or web address] [facility], [address] [place] [address], [phone], 3 13:13:33 Referral None recorded. Procedures None recorded. Surgeries None recorded. Imaging None recorded. Medication Orders fluticasone propionate 50 mcg/actuati on nasal spray,suspe nsion 2022 023 [id number], [address] [place], [address], 3 13:32:31 cetirizine 10 mg tablet 2022 023 [id number], [address] [place], [address], 3 13:32:39 Patient TargetsNo targets recorded. Patient InstructionsNo instructions recorded. Reason for Referral None Reported. Results Created Date Observation Date Name Description Value Unit Range Abnormal Flag Note LastModifiedBy Organization Detail LastModifiedTime 01/27/20 23 01/26/2023 rapid SARS CoV 2 Ag, QL IA, respi rator y speci men Unknown Analyte Normal =Negat dick Not Available [address] [place] [address], [phone], 01/26/2023 12:42:27 01/27/20 23 01/26/2023 rapid SARS CoV 2 Ag, QL IA, respi rator y speci men Unknown Analyte negati ve Not Available [address] [place] [address], [phone], 01/26/2023 12:42:27 01/27/20 23 01/26/2023 rapid strep group A, throa t Unknown Analyte Normal = Negati ve Not Available [address] [place] [address], [phone], 01/26/2023 12:47:49 01/27/2001/26/2023 rapid strep group A, throa t Unknown Analyte negati ve Not Available [address] [place] [address], [phone], 01/26/2023 12:47:49 Result Notes None recorded. Problems Name Problem SNOMED Code Status Onset Date Resolution Date Notes Provider Name and Address Organization Details Recorded Time Atrial fibrillation 35605245 Active 2022 Kathy harmon, PA - [facility] 3 12:46:09 Hypertensive disorder 51426595 Active 2022 Kathy harmon, PA - [facility] 12:46:15 Problem Notes None recorded. Medical Equipment None Reported. Allergies Allergen ID Allergen Name Allergen Category Reaction Reaction Severity Criticality Documentation Date Start Date Code Code System Note Provider Name and Address Organization Details Recorded Time 015273 grass pollen environme nt,medica tion Not available Not available Not available 01/26/2023 Kathy harmon, PA - [facility] 3 12:44:21 361005 cat dander environme nt Not available Not available Not available 01/26/2023 Kathy harmon, PA - [facility] 3 12:44:25 050391 Canis lupus familiari s extract environme nt Not available Not available Not available 01/26/2023 53633 4 RxNorm Kathy harmon, PA - [facility] 3 12:44:28 889789 house dust allergeni c extract environme nt,medica tion Not available Not available Not available 01/26/2023 65337 9 RxNorm Kathy harmon, PA - [facility] 3 12:44:34 421119 mold extract environme nt Not available Not available Not available 01/26/2023 20549 8 RxNorm Kathy [facility], [facility] [...] propionate 50 mcg/actuati on nasal spray,suspe nsion [place] 1 spray every day by intranasa l [...] Updated DateTime 3 190.5 cm 40 kg/m2 578132. 56 g 6 18 /min 97 % 97 % 61 /min 98 [degF] 128/77 mm[Hg] Kathy Lucas [facility] 3 12:49:00 Social History Question Answer Notes LastModified by Tivity Details LastModified Time Tobacco Smoking Status Never Smoker BALDO Marcelo [facility] 01/26/2023 12:46:44 Have You Recently Traveled Abroad? No Information not available 01/26/2023 Sex: Unknown Functional Status Question Answer Note LastModified by Tivity Details LastModified Time Do you use any [...] ICD10 Code Diagnosis IMO Codes Diagnosis Note [id number] [facility] [address] [place] [address] 02/23/2022 08:42:28 02/23/2022 10:05:26 [id number] [place] [address] [place] [address] 01/26/2023 10:33:28 01/26/2023 13:38:31 Upper respiratory infection 48236198 J06.9 Viral infectionR ecommend plenty of fluidsTyle nol for pain/fever Humidifier Nasal saline sprayNo need for antibiotic may last up to 2 weeksCall or RTC if worsening cough, SOB, high fever, rash, n/v/d and unable to hydrate Allergic rhinitis 809954 04 J30.9 Sx and PE c/w allergic [...] ID Guarantor Name 01/26/2023 1 MEDICARE B-[place]: [employer] Mahin Ha [id number] Mahin Ha 01/26/2023 2 [facility] INDEMNITY PLAN (INDEMNITY) [id number] Mahin Ha [id number] Mahin Ha Notes Date Note Type Note Provider Name and Address Organization Details Recorded Time 01/26/2023 text/html COVID-19 SymptomsReported by Patient CongestionReported by [email or web address] yo male c/o congestion and sore throat [...] Hall DO [address] [place], [phone], [place] - [facility] 01/26/2023 13:33:08
--- OUTSIDE RECORDS SUMMARY | 2025-08-04 21:41 | XMS_ITS | Patient Health Record ---
Author Organization Blue Acosta MD Address [address] [place], [place] [id number] Care Team Providers Care Fat Pressroom Worker Name Role Phone Blue Acosta Primary Care Provider [phone] Allergies Allergen (clinical drug ingredient) Drug/Non Drug Allergy documented on EMR Reaction Allergy Type Onset Date Status zolpidem ambien (uncoded) hallucinations Allergy Active amoxil (uncoded) rash Allergy Act dick Results Component Value Reference Range Notes Liver Panel Reviewed date:01/02/2025 12:30:46 PM Interpretation: Performing Lab:[facility], [address] [place] [phone] Notes/Report: Bilirubin Total 0.6 0.0-1.0 mg/dL Bilirubin Direct 0.3 0.0-0.5 mg/dL Aspartate Amino Transferase 29 5-37 U/L Alanine Aminotransferase 22 0-40 U/L Total Protein 7.6 6.5-8.0 g/dL Albumin Level 3.9 3.5-5.0 g/dL Alkaline Phosphatase 80 39-117 U/L Glucose Fasting Reviewed date:01/02/2025 12:30:54 PM Interpretation: Performing Lab:[facility], [address] [place] [phone] Notes/Report: Glucose Fasting 118 60-99 mg/dL A fasting glucose from 100-125 mg/dl is considered impaired (pre-diabetes). Lipid Panel with Reflex Reviewed date:01/02/2025 12:31:05 PM Interpretation: Performing Lab:[facility], [address] [place] [phone] Notes/Report: Triglycerides 118 <150 mg/dL Desirable Triglyceride: [...] A1c Reviewed date:01/03/2025 06:16:13 PM Interpretation: Performing Lab:[address] [phone] Notes/Report: Hemoglobin A1c % 5.6 <6.0 % [...] average glucose, using the formula of the A8Q-Epeijra Average Glucose study (ADAG), Diabetes Care, Vol.31,#8, May. 2007 Complete Blood Count Auto Di ff Reviewed date:07/10/2025 12:29:22 PM Interpretation: Performing Lab:[facility], [address] [place] [phone] Notes/Report: White Blood Count 10.2 4.8-10.8 X10*3/uL [...] Panel Reviewed date:07/10/2025 12:29:39 PM Interpretation: Performing Lab:[facility], [address] [place] [phone] Notes/Report: Triglycerides 98 <150 mg/dL Desirable Triglyceride: [...] (Free>4and<10) Reviewed date:07/10/2025 12:29:01 PM Interpretation: Performing Lab:[address] [phone] Notes/Report: PSA,Total (Free>4and<10) 0.26 0.00-4.00 ng/mL A [...] A1c Reviewed date:07/10/2025 12:28:51 PM Interpretation: Performing Lab:[address] [phone] Notes/Report: Hemoglobin A1c % 6.1 <6.0 % [...] average glucose, using the formula of the J5S-Ptozbxx Average Glucose study (ADAG), Diabetes Care, Vol.31,#8, May. 2007 Microalbumin, Random Reviewed date:07/16/2025 12:43:31 PM Interpretation: Performing Lab:[address] [address] Notes/Report: Creatinine Urine 91.72 Microalbumin Urine 8.0 Microalbum/Creatinine Ratio Ur 8.7 <30 ug/mg cr Albumin/Creatinine Ratio Reference Ranges: Normal: < 30 ug/mg creatinine Microalbuminuria: 30 - 300 ug/mg creatinine Clinical Albuminuria: > 300 ug/mg creatinine UA ClnCatch+Micro w/rflx Cul t Reviewed date:07/16/2025 12:43:48 PM Interpretation: Performing Lab:[facility], [address] [place] [phone] Notes/Report: Urine, Clean Catch Color Urine Yellow Appearance Urine Clear PH 6.5 5.0-9.0 Glucose Urine UA Negative Negative mg/dL Urine Blood Negative Negative Specific [place] - Urine 1.015 1.005-1.025 Urine Protein Negative Neg-Trace mg/dL Urine Ketones Negative Negative mg/dL Nitrite Urine Negative Negative Leukocyte Esterase Urine Negative Negative RBC Urine 0-2 0-2 /HPF WBC Urine 0-5 0-5 /HPF Squamous Epithelial Cell Urine 0-2 0-2 /HPF Bacteria Urine None Seen None Seen Hyaline Casts Urine 0-2 0-2 /LPF Hold Gold Reviewed date:01/02/2025 12:23:00 PM Interpretation: Performing Lab:[facility], [address] [place] [phone] Notes/Report: Johnie Milner See Note Specimen held untested for 24 hours; Call to request Chemistry testing. Complete Blood Count Auto Di ff Reviewed date:01/06/2025 08:02:47 PM Interpretation: Performing Lab:[facility], [address] [place] [phone] Notes/Report: White Blood Count 12.8 4.8-10.8 X10*3/uL [...] Panel Reviewed date:01/06/2025 08:04:15 PM Interpretation: Performing Lab:[facility], [address] [place] [phone] Notes/Report: Sodium 140 135-145 mmol/L Potassium 4.1 [...] Magnesium Reviewed date:01/06/2025 07:58:26 PM Interpretation: Performing Lab:[facility], [address] [place] [phone] Notes/Report: Magnesium 1.8 1.6-2.6 mg/dL Lipase Reviewed date:01/06/2025 07:58:34 PM Interpretation: Performing Lab:[facility], [address] [place] [phone] Notes/Report: Lipase 23 8-78 U/L CT NG by PCR Reviewed date:01/07/2025 02:59:49 PM Interpretation: Performing Lab:[facility], [address] [place] [phone] Notes/Report: Urine CT PCR NOT DETECTED Not [...] Cult Reviewed date:01/08/2025 04:41:34 PM Interpretation: Performing Lab:[facility], [address] [place] [phone] Notes/Report: Urine, Clean Catch Color Urine Yellow Appearance Urine Clear PH 5.5 5.0-9.0 Glucose Urine UA Negative Negative mg/dL Urine Blood Negative Negative Specific [place] - Urine 1.015 1.005-1.025 Urine Protein Negative Neg-Trace mg/dL Urine Ketones Negative Negative mg/dL Nitrite Urine Negative Negative Leukocyte Esterase Urine Negative Negative CT abdomen pelvis wo con Reviewed date:01/06/2025 08:03:52 PM Interpretation: Performing Lab: Notes/Report: [facility] [address] [place] [address] CT Scan Report Signed Patient: Mahin Ambrocio MR#: [id number] 045 : 1955 Acct:[id number] Age/Sex: 69 / M ADM Date: 01/06/25 Loc: .ED Attending Dr: Ordering Physician: Cristina Birmingham Date of Service: 01/06/25 Procedure(s): CT abdomen pelvis wo IV con Accession Number(s): [id number] cc: Blue Acosta MD; Cristina Birmingham Report Number: [id number]: Total DLP = 1401.00 mGy-cm EXAMINATION: CT [...] 01/06/25 1414 DD/ 1310 TD/TT: 01/06/25 1402 Alcoholism Worker: [address] [address] [address] Scan Report Signed Patient: Ziyad Ambrocio in G MR#: [id number] 045 : 1955 Acct:[id number] Age/Sex: 69 / M ADM Date: 01/06/25 Loc: .ED Attending Dr: Ordering Physician: Cristina Birmingham Date of Service: 01/06/25 Procedure(s): CT abd omen pelvis wo IV con Accession Number(s): [id number] cc: Blue Acosta MD; Cristina Birmingham Report Number: [id number]: Total DLP = 1401.00 mGy-cm EXAMINATION: CT [...] 01/06/25 1414 DD/ 1310 TD/TT: 01/06/25 1402 Alcoholism Worker: US scrotum Reviewed date:01/07/2025 03:00:25 PM Interpretation: Performing Lab: Notes/Report: [address] [address] Ultrasound Report Signed Patient: Mahin Ambrocio MR#: [id number] 045 : 1955 Acct:[id number] Age/Sex: 69 / M ADM Date: 01/06/25 Loc: HO.ED Attending Dr: Ordering Physician: Omid Lopez MD Date of Service: 01/06/25 Procedure(s): US scrotum Accession Number(s): [id number] cc: Blue Acosta MD; Omid Lopez MD CLINICAL HISTORY: L testicular pain. Ultrasound scrotum. COMPARISON: None Technique: Real time sonographic imaging, including color-flow imaging, was performed by the vice principal. Multiple loan representative static images were saved for review. [...] OV> 01/07/25 0804 DD/ 15 TD/TT: 01/06/251815 Alcoholism Worker: [place] [address] Ultrasound Report Signed Patient: Ziyad Ambrocio MR#: [id number] 045 : 1955 Acct:[id number] Age/Sex: 69 / M ADM Date: 01/06/25 Loc: .ED Attending Dr: Ordering Physician: Omid Lopez MD Date of Service: 01/06/25 Procedure(s): US scrotum Accession Number(s): [id number] cc: Blue Acosta MD; Omid Lopez MD CLINICAL HISTORY: L testicular pain. Ultrasound scrotum. COMPARISON: None Technique: Real time sonographic imaging, including color-flow imaging, was performed by the vice principal. Multiple loan representative static images were saved for review. [...] OV> 01/07/25 0804 DD/ 15 TD/TT: 01/06/251815 Alcoholism Worker: US scrotum doppler Reviewed date:01/06/2025 08:04:52 PM Interpretation: Performing Lab: Notes/Report: [address] [address] Ultrasound Report Signed Patient: Mahin Ambrocio MR#: [id number] 045 : 1955 Acct:[id number] Age/Sex: 69 / M ADM Date: 01/06/25 Loc: HO.ED Attending Dr: Ordering Physician: Louise Callejas Date of Service: 01/06/25 Procedure(s): US scrotum doppler Accession Number(s): [id number] cc: Blue Acosta MD; Louise Callejas CLINICAL HISTORY: L testicular pain. Ultrasound scrotum. COMPARISON: None Technique: Real time sonographic imaging, including color-flow imaging, was performed by the vice principal. Multiple loan representative static images were saved for review. [...] in OV> 01/06/251815 DD/ 15 TD/TT: 01/06/251815 Alcoholism Worker: [place] [address] Ultrasound Report Signed Patient: Ziyad Ambrocio MR#: [id number] 045 : 1955 Acct:[id number] Age/Sex: 69 / M ADM Date: 01/06/25 Loc: HO.ED Attending Dr: Ordering Physician: Louise Callejas Date of Service: 01/06/25 Procedure(s): US scr otum doppler Accession Number(s): [id number] cc: Blue Acosta MD; Louise Callejas CLINICAL HISTORY: L testicular pain. Ultrasound scrotum. COMPARISON: None Technique: Real time sonographic imaging, including color-flow imaging, was performed by the vice principal. Multiple loan representative static images were saved for review. [...] in OV> 01/06/251815 DD/ 15 TD/TT: 01/06/251815 Alcoholism Worker: XR chest 2V Reviewed date:01/13/2025 02:56:25 PM Interpretation: Performing Lab: Notes/Report: [address] [address] XRay Report Signed Patient: Mahin Ambrocio MR#: [id number] 045 : 1955 Acct:[id number] Age/Sex: 69 / M ADM Date: 01/09/25 Loc: HO.XRAY Attending Dr: Blue Acosta MD Ordering Physician: Blue Acosta MD Date of Service: 01/09/25 Procedure(s): XR chest 2V Accession Number(s): [id number] cc: Blue Acosta MD EXAMINATION: XR CHEST [...] 01/09/25 1059 DD/ 1000 TD/TT: 01/09/25 1010 Alcoholism Worker: [address] [address] XRay Report Signed Patient: Ziyad Ambrocio MR#: [id number] 045 : 1955 Acct:[id number] Age/Sex: 69 / M ADM Date: 01/09/25 Loc: HO.XRAY Attending Dr: Blue Acosta MD Ordering Physician: Blue Acosta MD Date of Service: 01/09/25 Procedure(s): XR isaias st 2V Accession Number(s): [id number] cc: Blue Acosta MD EXAMINATION: XR CHEST [...] 01/09/25 1059 DD/ 1000 TD/TT: 01/09/25 1010 Alcoholism Worker: MR summers wo/w con Reviewed date:02/17/2025 04:48:05 PM Interpretation: Performing Lab: Notes/Report: [place] [address] Magnetic Resonance Report Signed Patient: Mahin Ambrocio MR#: [id number] 045 : 1955 Acct:[id number] Age/Sex: 69 / M ADM Date: 02/16/25 Loc: HO.MRI Attending Dr: Jamey Rojas MD Ordering Physician: Jamey Rojas MD Date of Service: 02/16/25 Procedure(s): MR abdomen wo/w con Accession Number(s): [id number] cc: Blue Acosta MD; Jamey Rojas MD CLINICAL HISTORY: N28.1 - Cyst of kidney, acquired MR abdomen with and without gadolinium Comparison: CT/FL/SR - CT ABDOMEN PELVIS WO IV CON [...] OV> 02/17/25 1311 DD/ 130 TD/TT: 02/17/251308 Alcoholism Worker: [place] [address] Magnetic Resonance Report Signed Patient: Ziyad Ambrocio MR#: [id number] 045 : 1955 Acct:[id number] Age/Sex: 69 / M ADM Date: 02/16/25 Loc: HO.MRI Attending Dr: Jamey Rojas MD Ordering Physician: Jamey Rojas MD Date of Service: 02/16/25 Procedure(s): MR abd omen wo/w con Accession Number(s): [id number] cc: Blue Acosta MD; Jamey Rojas MD CLINICAL HISTORY: N2 8.1 - Cyst of kidney, acquired MR abdomen with and without gadolinium Comparison: CT/FL/SR - CT ABDOMEN PELVIS WO IV CON [...] OV> 02/17/25 131 DD/ 08 TD/TT: 02/17/251308 Alcoholism Worker: XR lumbar spine 4V min Reviewed date:02/23/2025 12:34:44 PM Interpretation: Performing Lab: Notes/Report: [facility] [address] [place] [address] XRay Report Signed Patient: Mahin Ambrocio MR#: [id number] 045 : 1955 Acct:[id number] Age/Sex: 69 / M ADM Date: 02/20/25 Loc: HO.HOSX Attending Dr: Simon Solano MD, PhD Ordering Physician: Simon Solano MD, PhD Date of Service: 02/20/25 Procedure(s): XR lumbar spine 4V min Accession Number(s): [id number] cc: Blue Acosta MD; Simon Solano MD, PhD CLINICAL HISTORY: M43.16 - Spondylolisthesis, lumbar region 4 views lumbar spine Comparison: CT/FL/SR - CT ABDOMEN PELVIS WO IV CON [...] in OV> 02/23/2523 DD/ 1 TD/TT: 02/23/25821 Alcoholism Worker: [facility] [address] [place] [address] XRay Report Signed Patient: Ziyad Ambrocio MR#: [id number] 045 : 1955 Acct:[id number] Age/Sex: 69 / M ADM Date: 02/20/25 Loc: HO.HOSX Attending Dr: Richard Solano MD, PhD Ordering Physician: Simon Solano MD, PhD Date of Service: 02/20/25 Procedure(s): XR lum bar spine 4V min Accession Number(s): [id number] cc: Blue Acosta MD; Simon Solano MD, PhD CLINICAL HISTORY: M4 3.16 - Spondylolisthesis, lumbar region 4 views lumbar spine Comparison: CT/FL/SR - CT ABDOMEN PELVIS WO IV CON [...] in OV> 02/23/25822 DD/ 1 TD/TT: 02/23/25821 Alcoholism Worker: US bladder Reviewed date:05/28/2025 12:37:23 PM Interpretation: Performing Lab: Notes/Report: [facility] [address] [place] [address] Ultrasound Report Signed Patient: Mahin Ambrocio MR#: [id number] 045 : 1955 Acct:[id number] Age/Sex: 69 / M ADM Date: 05/28/25 Loc: HO.HMGCX Attending Dr: Don Aj MD Ordering Physician: Don Aj MD Date of Service: 05/28/25 Procedure(s): US bladder Accession Number(s): [id number] cc: Don Aj MD; Blue Acosta MD CLINICAL HISTORY: N32.0 - Bladder-neck obstruction US bladder with color Doppler Comparison: US/FL - US SCROTUM DOPPLER - 01/06/25 17:[address]/FL/SR - CT ABDOMEN PELVIS WO IV CON [...] in OV> 05/28/25946 DD/ 5 TD/TT: 05/28/25945 Alcoholism Worker: [facility] [address] [place] [address] [place] [address] Ultrasound Report Signed Patient: Ziyad Ambrocio G MR#: [id number] 045 : 1955 Acct:[id number] Age/Sex: 69 / M ADM Date: 05/28/25 [facility]: Joselin Bach MD Ordering Physician: Don Aj MD Date of Service: 05/28/25 Procedure(s): US bladder Accession Number(s): [id number] cc: Don Aj MD; Blue Acosta MD CLINICAL HISTORY: N3 2.0 - Bladder-neck obstruction US bladder with colo r Doppler Comparison: US/FL - US SCROTUM DOPPLER - 01/06/25 17:[address]/FL/SR - CT ABDOME N PELVIS WO IV [...] in OV> 05/28/25946 DD/ 5 TD/TT: 05/28/25945 Alcoholism Worker: Harshil Bates. Panel Reviewed date:07/10/2025 12:37:03 PM Interpretation: Performing Lab:[facility], [address] [place] [phone] Notes/Report: Sodium 142 135-145 mmol/L Potassium 4.2 [...] U/L Complete Blood Count Auto Di ff Reviewed date:08/02/2025 02:18:12 PM Interpretation: Performing Lab:[facility], [address] [place] [phone] Notes/Report: White Blood Count 7.9 4.8-10.8 X10*3/uL [...] X10*3/uL NRBC Abs Auto 0.000 0.0-0.012 X10*3/uL Prothrombin Time INR Reviewed date:08/02/2025 02:16:34 PM Interpretation: Performing Lab:[address] [address] Notes/Report: Prothrombin Time 23.8 10.9-12.4 SEC INTERNATIONAL NORM RATIO 2.1 0.9-1.1 INTERNATIONAL NORMALIZED RATIO (INR) REFERENCE RANGES Reference Range For patients not on anticoagulant therapy: 0.9 - 1.1 INR ranges for oral anticoagulant therapy: For prevention and treatment of venous thrombosis and pulmonary embolism: 2.0 - 3.0 For acute myocardial infarction with aspirin therapy: 2.0 - 3.0 For acute myocardial infarction without aspirin therapy: 3.0 - 4.0 For patients with mechanical prosthetic heart valves: 2.5 - 3.5 Comprehensive Met. Panel Reviewed date:08/02/2025 02:16:51 PM Interpretation: Performing Lab:[address] [address] Notes/Report: Sodium 140 135-145 mmol/L Potassium 4.6 3.3-5.1 mmol/L Chloride 105 96-108 mmol/L Carbon Dioxide 26 22-29 mmol/L Anion Gap 14 12-20 Blood Urea Nitrogen 15 9-16 mg/dL Creatinine 0.99 0.5-1.4 mg/dL Creatinine Clr Calc Pharmacy 109.7 eGFR (calculated from the MDRD study equation) and eCrCl (calculated from the Cockcroft-Gault equation) are based on different parameters and may not yield comparable results. If eCrCl result is absurd, please check patient's height/weight. Estimated Glomerular Filt Rate > 60 Chronic Kidney Disease: Estimated GFR < 60 mL/min/1.73m2 Severe Kidney Disease: Estimated GFR < 15 mL/min/1.73m2 Glucose Random 98 60-115 mg/dL Calcium 9.5 8.4-10.2 mg/dL Bilirubin Total 0.8 0.0-1.0 mg/dL Aspartate Amino Transferase 32 5-37 U/L Alanine Aminotransferase 26 0-40 U/L Total Protein 7.3 6.5-8.0 g/dL Albumin Level 4.3 3.5-5.0 g/dL Alkaline Phosphatase 81 39-117 U/L Complete Blood Count Auto Di ff (Not yet reviewed by provider) Interpretation: Performing Lab:[facility], [address] [place] [phone] Notes/Report: White Blood Count 8.9 4.8-10.8 X10*3/uL Red Blood Count 4.88 4.60-5.80 X10*6/uL Hemoglobin 14.4 14.0-18.0 g/dl Hematocrit 43.1 42.0-52.0 % Mean Corpuscular Volume 88.3 80.0-98.0 fL Mean Corpuscular Hemoglobin 29.5 27.0-33.0 pg Mean Corpuscular HGB Conc 33.4 31.0-36.0 g/dl Red Cell Distribution Width 12.0 11.0-16.0 % Platelet Count 190 160-400 X10*3/uL Mean Platelet Volume 9.9 9.4-12.4 fL Neutrophils Percent Auto 53.9 45-73 % Imm Gran Pct Auto 0.2 0.0-0.4 % Lymphocytes Percent Auto 30.4 20-40 % Monocytes Percent Auto 11.0 2-11 % Eosinophils Percent Auto 3.6 0-4 % Basophils Percent Auto 0.9 0-2 % NRBC Pct Auto 0.0 0.0-0.2 /100WBC Neutrophils Absolute Auto 4.8 2.0-8.3 x10*3/u L Imm Gran Abs Auto 0.02 0.00-0.03 X10*3/uL Lymphocytes Absolute Auto 2.7 1.2-4.9 X10*3/u L Monocytes Absolute Auto 1.0 0.1-1.2 X10*3/uL Eosinophils Absolute Auto 0.3 0.0-0.4 X10*3/u L Basophils Absolute Auto 0.1 0.0-0.2 X10*3/uL NRBC Abs Auto 0.000 0.0-0.012 X10*3/uL Prothrombin Time INR (Not ye t reviewed by provider) Interpretation: Performing Lab:[address] [address] Notes/Report: Prothrombin Time 18.3 10.9-12.4 SEC INTERNATIONAL NORM RATIO 1.6 0.9-1.1 INTERNATIONAL NORMALIZED RATIO (INR) REFERENCE RANGES Reference Range For patients not on anticoagulant therapy: 0.9 - 1.1 INR ranges for oral anticoagulant therapy: For prevention and treatment of venous thrombosis and pulmonary embolism: 2.0 - 3.0 For acute myocardial infarction with aspirin therapy: 2.0 - 3.0 For acute myocardial infarction without aspirin therapy: 3.0 - 4.0 For patients with mechanical prosthetic heart valves: 2.5 - 3.5 Basic Metabolic Panel (Not y et reviewed by provider) Interpretation: Performing Lab:[address] [address] Notes/Report: Sodium 141 135-145 mmol/L Potassium 4.2 3.3-5.1 mmol/L Chloride 105 96-108 mmol/L Carbon Dioxide 28 22-29 mmol/L Anion Gap 12 12-20 Blood Urea Nitrogen 20 9-16 mg/dL Creatinine 1.23 0.5-1.4 mg/dL Creatinine Clr Calc Pharmacy 88.6 eGFR (calculated from the MDRD study equation) and eCrCl (calculated from the Cockcroft-Gault equation) are based on different parameters and may not yield comparable results. If eCrCl result is absurd, please check patient's height/weight. Estimated Glomerular Filt Rate 58 Chronic Kidney Disease: Estimated GFR < 60 mL/min/1.73m2 Severe Kidney Disease: Estimated GFR < 15 mL/min/1.73m2 Glucose Random 93 60-115 mg/dL Calcium 9.6 8.4-10.2 mg/dL Reason For Referral No Information Medications Medication [...] the vaccine at [facility]. Fluarix Quadrivalent IM Intramuscular 06/24/2018 Administe [...] Problem Status W/U Status Risk Notes Problem 526814650 Diverticulitis (K57.92) Active confirmed Problem Sinusitis (51091799) Sinusitis (J32.9) Active c onfirmed Problem 204021734 Mixed hyperlipidemia (E78.2) Active confirmed Problem 227426494 Paroxysmal atria l fibrillation (I48.0) Active confirmed Problem 68394984 Atherosclerosis of aorta (I70.0) Active confirmed Problem 56909903967654583 Acute recurren t frontal sinusitis (J01.11) Active confirmed Problem 881846237 Angina effort (I20.8) Active confirmed Problem 182133773 Lumbar disc disease (M51.9) Active confirmed Problem 009922409 Tubular adenoma of colon (D12.6) Active confirmed Problem 63700383 Essential hypertension (I10) Active confirmed Problem 7712978 Prediabetes (R73.09) Active confirmed Problem 053471785 Morbid obesity due to excess calories (E66.01) Active confirmed Problem 654934234 Cervical disc disease (M50.90) Active confirmed Problem 408806610 Hammertoe of lef t foot (M20.42) Active [...] Date Provider Diagnosis Blue Acosta MD [address] [place] [address] Drive [address] [place] [id number] 01/02/2025 Blue Acosta Mixed hyperlipidemia E78.2 and Prediabetes R73.09 Blue Acosta MD [address] [place] [id number] 07/10/2025 Blue Acosta Mixed hyperlipidemia E78.2 ; Encounter for administration of vaccine Z23 ; Essential hypertension I10 and Prediabetes R73.09 Blue Acosta MD [address] [place] [address] Drive [address] [place] [id number] 01/09/2025 Blue Acosta Pleural effusion J90 ; Lumbar disc disease with radiculopathy M51.16 ; Foot drop, left M21.372 ; Prediabetes R73.09 and Mixed hyperlipidemia E78.2 Blue Acosta MD [address] [place] [address] [address] [id number] 07/16/2025 Blue Acosta Prediabetes R73.09 ; Essential hypertension I10 ; Sinusitis J32.9 ; Mixed hyperlipidemia E78.2 ; Paroxysmal atrial fibrillation I48.0 and Depression screening Z13.31 Blue Acosta MD [address] [place] [id number] 01/08/2025 Blue Acosta MD [address] [place] [id number] 01/12/2025 Blue Acosta MD [address] [place] [id number] 01/13/2025 Blue Acosta Pleural effusion J90 Blue Acosta MD [address] [place] [id number] 08/04/2025 Blue Acosta Assessments Encounter Date Diagnosis (ICD Code) Assessment [...] testing, THE ORDER HAS BEEN FAXED TO [facility] FOR SCHEDULING 07/16/2025 Prediabetes (ICD-10 - R73.09) [...] 01/09/2025 Complete Blood Count Auto Diff 5 Prothrombin Time INR 08/04/2025 Comprehensive [place]. Panel Fast 5 Basic Metabolic Panel 08/04/2025 Microalbumin, Random 07/10/2025 XR chest 2V 01/13/2025 UA ClnCatch+Micro w/rflx Cult 07/10/2025 Future Test Test Name Order Date CT ABD & PELVIS WITH CONTRAST 2020 Next Appt Details Provider Name:Blue garrido, 08/18/2025 09:00:00 AM, [address] [place] [address], [address], [phone], Provider Name:Blue garrido, 01/18/2026 07:30:00 AM, [address] [place] [address], [address], [phone], Provider Name:Blue garrido, 01/25/2026 09:00:00 AM, [address] [place] [address], [address], [phone], Provider Name:Blue garrido, 07/12/2026 07:00:00 AM, [address] [place] [address], [address], [phone], Provider Name:Blue garrido, 07/19/2026 08:30:00 AM, [address] [place] [address], [address], [phone], Insurance Providers Payer Name Payer Address Payer Phone Subscriber Number Group Number Insured Name Patient Relationship to Insured Coverage Start Date Coverage End Date MEDICARE NHIC [address] [place] [address] [id number] Mahin Ambrocio Self - patient is the insured [facility] [address] [place] [address] [id number] Mahin Ambrocio Self - patient is the insured Medical (General) History Medical History History ICD Code colonoscopy 04/2012 for recta l bleeding due in 10 years; Colonoscopy done 10/27/[address] Sanchez - repeat 5 years. 03/30/25 colonoscopy - Daniel repeat 5y
--- OUTSIDE RECORDS SUMMARY | 2025-08-04 21:41 | XMS_ITS | Patient Health Record ---
Author Organization [facility] hallie Juliette Address [address] [place] [address] Care Team Providers Care Mask Layout Designer Name Role Phone Blue Acosta MD Primary Care Provider Milli Jimenez Unavailable [phone] Allergies Allergen (clinical drug ingredient) Drug/Non Drug [...] W/U Status Risk Notes Problem Tinea unguium (640487637) Tinea unguium (B35.1) Active confirmed Problem Acquired hammer toe of left foot (9849344020636738 ) Other hammer toe(s) (acquired), left foot (M20.42) Active confirmed Problem Localized, primary osteoarthritis of the ankle and/or foot (991940430) Arthritis of joint of lesser toe, left [...] X ray : Foot, left 3V 05/06/2024 [id number] NAIL, 1-5 08/17/2023 [id number] NAIL, 1-5 03/31/2016 03828- Debride <25 sq cm 09/02/2013 18483- Debride <25 sq cm 08/17/2023 [id number] SKIN/TISSUE 07/07/2013 55219-[id number] SKIN/TISSUE 07/22/2013 [id number] SKIN/TISSUE 08/12/2013 Insurance Providers Payer Name Payer Address Payer Phone Subscriber Number Group Number Insured Name Patient Relationship to Insured Coverage Start Date Coverage End Date Medicare National [employer] [address] [facility] [address] [phone] [id number] Mahin Ha Self - patient is the insured [facility] [address] [place] [address] [id number] Mahni Ha Self - patient is the insured [...]
[2025-08-04 22:50] VITALS: BP 123/70; PULSE 60; RESP 16; TEMP 36.6; O2SAT 96
[2025-08-05 00:09] VITALS: BP 127/80; PULSE 62; RESP 16; TEMP 36.6; O2SAT 95
== END 2025-08-05 00:10 | disposition home or self-care (01) ==
PROVIDERS: Physician Assistant; Emergency Provider Emergency Medicine; PCP Internal Medicine
DX: R04.0 Epistaxis (principal); I10 Essential (primary) hypertension; E78.5 Hyperlipidemia, unspecified; I48.0 Paroxysmal atrial fibrillation; Z79.01 Long term (current) use of anticoagulants; Z79.899 Other long term (current) drug therapy
CPT/HCPCS: 36415; 80048; 85025; 85610; 99283; 99284

== ENCOUNTER 2025-08-10 11:28 | Outpatient (AMB) | payer MEDICARE, OTHER, SELFPAY ==
--- OUTSIDE RECORDS SUMMARY | 2024-04-09 11:15 | XMS_ITS ---
Author Organization [facility] Address [address] [place] [address] Care Team Providers Care Fire Marshal Refinery Name Role Phone Blue Acosta MD Primary Care Provider Milli Jimenez Unavailable [phone] Camara Encounters Encounter Location Date Provider [facility] [address] [place] [address] 04/09/2024 Milli Yost Plan Of Treatment No Information Progress Notes * Mahin JORGE GDOB:[birth year] (69 yo M)Acc No.[id number]:04/09/2024 Progress Note Patient: Mahin LAWRENCE Provider: Harjit Yost DPM :1955 A ge:68 Y S ex:Male Date:04/09/2024 Address: [place], [id number] Pcp:Blue Acosta MD Subjective: * Chief Complaints: [...] 04/09/2024 Generated for Navjot mccall/Janay/Kristy on: 1 02:47 PM EDT
--- OUTSIDE RECORDS SUMMARY | 2024-04-23 06:00 | XMS_ITS ---
Author Organization [facility] Address [address] [facility] [place] [address] Care Team Providers Care Cafeteria Food Server Name Role Phone Karla PAZ, Blue Primary Care Provider UnaMilli Barrett Unavailable [phone] Encounters Encounter Location Date Provider Diagnosis Surgery [facility] ([facility]) [address] [place] [phone] 04/23/2024 Milli Yost Plan Of Treatment No Information Progress Notes * Mahin JORGE GDOB:[birth year] (69 yo M)Acc No.[id number]:04/23/2024 Patient: Mahin LAWRENCE Provider: Harjit Yost DPM [...] 04/23/2024 Generated for Printi ng/Faxing/eTransmitting on: 1 02:49 PM EDT
--- OUTSIDE RECORDS SUMMARY | 2024-07-03 03:30 | XMS_ITS ---
Author Organization Blue Acosta MD Address [address] [place], [place] [phone] Care Team Providers Care Academic Physician Name Role Phone Blue Acosta Primary Care Provider Results Component Value Reference Range Notes Complete Blood Count Auto Di ff Reviewed date:07/03/2024 05:03:13 PM Interpretation: Performing Lab:[facility], [address] [place] [phone] Notes/Report: White Blood Count 8.5 4.8-10.8 X10*3/uL [...] NRBC Abs Auto 0.000 0.0-0.012 X10*3/uL Comprehensive [place]. Panel Fa st Reviewed date:07/03/2024 12:20:41 PM Interpretation: Performing Lab:[facility], [address] [place] [phone] Notes/Report: Sodium 140 135-145 mmol/L Potassium 4.2 3.3-5.1 mmol/L Chloride 105 96-108 mmol/L Carbon Dioxide 28 22-29 mmol/L Anion Gap 11 12-20 Blood Urea Nitrogen 16 9-16 mg/dL Creatinine 0.91 0.5-1.4 mg/dL Estimated Glomerular Filt Rate > 60 NOTE: For -Vincentian individuals, multiply the result by 1.210. Chronic [...] Panel Reviewed date:07/03/2024 12:16:21 PM Interpretation: Performing Lab:[facility], [address] [place] [phone] Notes/Report: Triglycerides 103 <150 mg/dL Desirable Triglyceride: [...] (Free>4and<10) Reviewed date:07/03/2024 12:17:59 PM Interpretation: Performing Lab:[address] [phone] Notes/Report: PSA,Total (Free>4and<10) 0.31 0.00-4.00 ng/mL A [...] Random Reviewed date:07/03/2024 12:30:42 PM Interpretation: Performing Lab:[facility], [address] [place] [phone] Notes/Report: Creatinine Urine 52.54 Microalbumin Urine < 5.0 Microalbum/Creatinine Ratio Ur TNP <30 ug/mg cr Unable to calculate albumin/creatinine ratio due to low microalbumin or creatinine result. Hemoglobin A1c Reviewed date:07/03/2024 12:16:31 PM Interpretation: Performing Lab:[address] [phone] Notes/Report: Hemoglobin A1c % 5.6 <6.0 % [...] average glucose, using the formula of the C1U-Crklbdv Average Glucose study (ADAG), Diabetes Care, Vol.31,#8, May. 2007 UA ClnCatch+Micro w/rflx Cul t Reviewed date:07/03/2024 12:27:43 PM Interpretation: Performing Lab:[facility], [address] [place] [phone] Notes/Report: Urine, Clean Catch Color Urine Yellow Appearance Urine Clear PH 5.5 5.0-9.0 Glucose Urine UA Negative Negative mg/dL Urine Blood Negative Negative Specific [place] - Urine 1.010 1.005-1.025 Urine Protein Negative [...] Diagnosis Blue Acosta MD [address] [facility] [address] [place], [place] [id number] 07/03/2024 Blue Acosta Mixed hyperlipidemia E78.2 ; [...] 09:00:00 AM, [address], [address], [place], [place], [phone], Provider Name:Blue Arechiga ier, 01/18/2026 07:30:00 AM, [address], [address], [place], [id number], Provider Name:Blue Arechiga ier, 01/25/2026 09:00:00 AM, [address], [address], [place], [phone], Provider Name:Blue Arechiga ier, 07/12/2026 07:00:00 AM, [address], Suite [facility], [place], [id number], Provider Name:Blue Arechiga ier, 07/19/2026 08:30:00 AM, [address] [facility], Suite [facility], [place], [phone], Progress Notes * Mahin AMBROCIO GDOB:[birth year] (69 yo M)Acc No.[id number]:07/03/2024 Progress Note Patient: Mahin LAWRENCE Provider: Madan Acosta MD :1955 A ge:68 Y S ex:Male Date:07/03/2024 Address:[address] [place] [address] Subjective: * Chief Complaints: * 1 . [...] - 07/03/2024 07:30 AM) L AB: Comprehensive [place]. Panel Fast (Collection Date & Time - [...] - 07/03/2024 07:30 AM) L AB: Comprehensive [place]. Panel Fast (Collection Date & Time - [...] FLU VAC NO FEE SCHED SAME DAY, [id number] VENIPUNCT, ROUTINE* * * The named appointment provid er may or may not be the originator of this progress note, and it is not deemed complete until electronically signed by the appointment provider. Sign off status: Pending * Provider: Madan Acosta MD Date: 0 07/03/2024 Generated for Navjot mccall/Janay/Tanoitting on: 1 02:49 PM EDT
--- OUTSIDE RECORDS SUMMARY | 2024-07-10 07:00 | XMS_ITS ---
Author Organization Blue Acosta MD Address [address] [place], [place] [phone] Care Team Providers Care Ux Engineer Name Role Phone Blue Acosta Primary Care Provider [phone] Allergies Allergen (clinical drug ingredient) Drug/Non Drug [...] Location Date Provider Diagnosis Blue Acosta MD [address] [place] [address] [place] [phone] 07/10/2024 Blue Acosta Essential hypertensi on I10 [...] Reason: Provider Name:Blue garrido, 08/18/2025 09:00:00 AM, [address] [place] [address], [address], [phone], Provider Name:Blue garrido, 01/18/2026 07:30:00 AM, [address] [place] [address], [address], [phone], Provider Name:Blue garrido, 01/25/2026 09:00:00 AM, [address] [place] [address], [address], [phone], Provider Name:Blue garrido, 07/12/2026 07:00:00 AM, [address] [place] [address], [address], [phone], Provider Name:Blue garrido, 07/19/2026 08:30:00 AM, [address] [place] [address], [address], [phone], Progress Notes * Mahin AMBROCIO GDOB:[birth year] (68 yo M)Acc No.[id number]:07/10/2024 Patient: Mahin Galdamez Provider: Madan Acosta MD :1955 A ge:68 Y S ex:Male Date:07/10/2024 Address:[address] [place], [place] [phone] Subjective: * Chief Complaints: * R eview [...] 1 cat. no Travel outside of the [facility], [facility]. * Medications: T akingGabapentin 300 MG [...] mg/dL Urine Blood Negative Negative - Specific [place] - Urine 1.010 1.005-1.025 - Urine Protein [...] Urine 0-2 0-2 - /LPF L ab:Comprehensive [place]. Panel Fast (Order Date - 07/03/2024) (Collection [...] Medicine: Counseling: C are goal follow-up plan: [place] ordazeling for abnormal BMI provided?Yes, Bradly trejo Normal BMI Follow-up Madan demarco encouragement to exercise. * Follow Up: 6 Months * * Sign off status: Completed true * Provider: Madan Acosta MD Date: 0 07/10/2024 Generated for Navjot mccall/Janay/Dietersmitting on: 1 02:47 PM EDT History and Physical Notes * HPI (History [...]
--- OUTSIDE RECORDS SUMMARY | 2025-01-02 04:00 | XMS_ITS ---
Author Organization Blue Acosta MD Address [address] [place], [place] [phone] Care Team Providers Care Radius Grinder Name Role Phone Blue Acosta Primary Care Provider [phone] Results Component Value Reference Range Notes Liver Panel Reviewed date:01/02/2025 12:30:46 PM Interpretation: Performing Lab:[address] [phone] Notes/Report: Bilirubin Total 0.6 0.0-1.0 mg/dL Bilirubin Direct 0.3 0.0-0.5 mg/dL Aspartate Amino Transferase 29 5-37 U/L Alanine Aminotransferase 22 0-40 U/L Total Protein 7.6 6.5-8.0 g/dL Albumin Level 3.9 3.5-5.0 g/dL Alkaline Phosphatase 80 39-117 U/L Glucose Fasting Reviewed date:01/02/2025 12:30:54 PM Interpretation: Performing Lab:[address] [phone] Notes/Report: Glucose Fasting 118 60-99 mg/dL A fasting glucose from 100-125 mg/dl is considered impaired (pre-diabetes). Lipid Panel with Reflex Reviewed date:01/02/2025 12:31:05 PM Interpretation: Performing Lab:[address] [phone] Notes/Report: Triglycerides 118 <150 mg/dL Desirable Triglyceride: [...] A1c Reviewed date:01/03/2025 06:16:13 PM Interpretation: Performing Lab:[facility], [address] [place] [phone] Notes/Report: Hemoglobin A1c % 5.6 <6.0 % [...] average glucose, using the formula of the T5X-Bwebxwg Average Glucose study (ADAG), Diabetes Care, Vol.31,#8, May. 2007 REASON FOR VISIT FASTING LIPIDS Encounters Encounter Location Date Provider Diagnosis Blue Acosta MD [address] [place] [address] [place] [phone] 01/02/2025 Blue Acosta Mixed hyperlipidemia E78.2 and Prediabetes R73.09 Assessments Encounter Date Diagnosis (ICD Code) Assessment Notes Treatment Notes Treatment Clinical Notes Section Notes 01/02/2025 Mixed hyperlipidemia (ICD-10 - E78.2) 01/02/2025 Prediabetes (ICD-10 - R73.09) Plan Of Treatment Next Appt Details Provider Name:Blue garrido, 08/18/2025 09:00:00 AM, [address] [place] [address], Suite [facility], [place], [place], [phone], Provider Name:Blue garrido, 01/18/2026 07:30:00 AM, [address], [address], [place], [phone], Provider Name:Blue Arechiga ier, 01/25/2026 09:00:00 AM, [address] [facility] [address], [address], [place], [phone], Provider Name:Blue Arechiga ier, 07/12/2026 07:00:00 AM, [facility], [address], [place], [place], [phone], Provider Name:Blue Arechiga ier, 07/19/2026 08:30:00 AM, [address] [facility] [address], [address], [place], [place], [phone], Progress Notes * Mahin AMBROCIO GDOB:[birth year] (69 yo M)Acc No.[id number]:01/02/2025 Progress Note Patient: Mahin LAWRENCE Provider: Madan Acosta MD :1955 A ge:69 Y S ex:Male Date:01/02/2025 Address:[address] [place], [place] [phone] Subjective: * Chief Complaints: * 1 . [...] 01/02/2025 Generated for Navjot mccall/Janay/Kristy on: 1 02:47 PM EDT
--- OUTSIDE RECORDS SUMMARY | 2025-01-08 16:26 | XMS_ITS ---
Author Organization Blue Acosta MD Address [address] [place] [address] [place] [address] [phone] Care Team Providers Care Director Banking Name Role Phone Blue Acosta Primary Care Provider [phone] REASON FOR VISIT ER Encounters Encounter Location Date Provider Diagnosis Blue Acosta MD [address] [place] [address] [place] [address] [phone] 01/08/2025 Blue Acosta Plan Of Treatment Next Appt Details Provider Name:Blue garrido, 08/18/2025 09:00:00 AM, [address] [place] [address], [address], [phone], Provider Name:Blue garrido, 01/18/2026 07:30:00 AM, [address] [place] [address], [address], [phone], Provider Name:Blue garrido, 01/25/2026 09:00:00 AM, [address] [place] [address], [address], [phone], Provider Name:Blue garrido, 07/12/2026 07:00:00 AM, [address] [place] [address], [address], [phone], Provider Name:Blue garrido, 07/19/2026 08:30:00 AM, [address] [place] [address], [phone], Progress Notes * Mahin AMBROCIO GDOB:[birth year] (69 yo M)Acc No.[id number]:01/08/2025 Patient: Mahin LAWRENCE :1955 A ge:69 Y S ex:Male Address:[address] [place], [place] [phone] * true * Date: Generated for Navjot mccall/Janay/Tanoitting on: 02:48 PM EDT
--- OUTSIDE RECORDS SUMMARY | 2025-01-09 05:15 | XMS_ITS ---
Author Organization Blue Acosta MD Address [address] [place], [place] [phone] Care Team Providers Care Reporting Manager Name Role Phone Blue Acosta Primary [...] kg/m2 01/09/2025 weight is down 6 pounds [facility] e 07-10-24 Encounters Encounter Location Date Provider Diagnosis Blue Acosta MD [address] [place] [address] [address] [place], [place] [phone] 01/09/2025 Blue Acosta Pleural effusion J90 ; [...] testing, THE ORDER HAS BEEN FAXED TO [facility] FOR SCHEDULING 01/09/2025 Foot drop, left (ICD-10 [...] testing, THE ORDER HAS BEEN FAXED TO [facility] FOR SCHEDULING Foot drop, left pending diagnostic t esting Prediabetes stable, no need for medication at this time, will contiue to monitor Mixed hyperlipidemia stable, will contin ue current regiment Pending Test Test Name Order Date MRI LUMBAR SPINE NO CONTRAST 01/09/2025 XR CHEST 2 VIEW PA & LAT 01/09/2025 Next Appt Details Provider Name:Blue Arechiga ier, 08/18/2025 09:00:00 AM, [address] [place] [address], [address] [place] [address], [phone], Provider Name:Blue Arechiga ier, 01/18/2026 07:30:00 AM, [address] [place] [address], [address] [place] [address], [phone], Provider Name:Blue Arechiga ier, 01/25/2026 09:00:00 AM, [address] [place] [address], [address], [phone], Provider Name:Blue Arechiga ier, 07/12/2026 07:00:00 AM, [address] [place] [address], [address] [place] [address], [phone], Provider Name:Blue Arechiga ier, 07/19/2026 08:30:00 AM, [address] [place] [address], [address] [place] [address], [phone], Progress Notes * Kyrie AMBROCIO GDOB:[birth year] (69 yo M)Acc No.[id number]:01/09/2025 Progress Notes Patient: Kyrie LAWRENCE Provider: Madan Acosta MD :1955 A ge:69 Y S ex:Male Date:01/09/2025 Address:[address] [place], [place] [phone] Subjective: * Chief Complaints: * 6 MO [...] testing, THE ORDER HAS BEEN FAXED TO [facility] FOR SCHEDULING 3. F oot drop, [...] 01/09/2025 Generated for Navjot mccall/Janay/Tanoitting on: 1 02:46 PM EDT History and Physical Notes * [...]
--- OUTSIDE RECORDS SUMMARY | 2025-01-12 04:57 | XMS_ITS ---
Author Organization Blue Acosta MD Address [address] [place] [address] [place] [address] [phone] Care Team Providers Care Automatic Cigar Wrapper Tender Name Role Phone Blue Acosta Primary Care Provider REASON FOR VISIT MRI order Encounters Encounter Location Date Provider Diagnosis Blue Acosta MD [address] [place] [address] [place] [address] [phone] 01/12/2025 Bleu Acosta Plan Of Treatment Next Appt Details Provider Name:Blue garrido, 08/18/2025 09:00:00 AM, [address] [place] [address], [address], [phone], Provider Name:Blue garrido, 01/18/2026 07:30:00 AM, [address] [place] [address], [address], [phone], Provider Name:Blue garrido, 01/25/2026 09:00:00 AM, [address] [place] [address], [address], [phone], Provider Name:Blue garrido, 07/12/2026 07:00:00 AM, [address] [place] [address], [phone], Provider Name:Blue garrido, 07/19/2026 08:30:00 AM, [address] [place] [address], [phone], Progress Notes * Mahin AMBROCIO GDOB:[birth year] (69 yo M)Acc No.[id number]:01/12/2025 Patient: Mahin LAWRENCE :1955 A ge:69 Y S ex:Male Address:[address] [place] [phone] * true * Date: Generated for Navjot mccall/Janay/Tanoitting on: 02:49 PM EDT
--- OUTSIDE RECORDS SUMMARY | 2025-01-13 10:52 | XMS_ITS ---
Author Organization Blue Acosta MD Address [address] [place] [address] [place] [phone] Care Team Providers Care Napping Machine Operator Name Role Phone Blue Acosta Primary Care Provider REASON FOR VISIT Repeat CXR Encounters Encounter Location Date Provider Diagnosis Blue Acosta MD [address] [place] [phone] 01/13/2025 Blue Acosta Pleural effusion J90 Assessments [...] Details Provider Name:Blue garrido, 08/18/2025 09:00:00 AM, [address] [place] [address], [address], [phone], Provider Name:Blue garrido, 01/18/2026 07:30:00 AM, [address] [place] [address], [address], [phone], Provider Name:Blue garrido, 01/25/2026 09:00:00 AM, [address] [place] [address], [address], [phone], Provider Name:Blue garrido, 07/12/2026 07:00:00 AM, [address], [place], [place], [phone], Provider Name:Blue Arechiga ier, 07/19/2026 08:30:00 AM, [address], [address], [place], [place], [phone], Progress Notes * Mahin AMBROCIO GDOB:[birth year] (69 yo M)Acc No.[id number]:01/13/2025 Patient: Yanick COLEMANMahin MORLEY :1955 A ge:69 Y S ex:Male Address:[address] [place] [address] Subjective: * Chief Complaints: * R epeat CXR * Medical History: * Surgical History: * Hospitalization/Major Diagno stic Procedure: * Medications: Objective: * Vitals: * Physical Examination: Assessment: * Assessment: 1. P leural effusion - J90 Plan: * Treatment: * Procedure Codes: * true * Date: Generated for Navjot mccall/Janay/eTransmitting on: 02:48 PM EDT
--- OUTSIDE RECORDS SUMMARY | 2025-03-20 05:30 | XMS_ITS ---
Author Organization [facility] Address [address] [place] [address] Care Team Providers Care Faculty I On Call Medical Assistant Name Role Phone Blue Acosta MD Primary Care Provider Corby Michel [phone] REASON FOR VISIT screening Encounters Encounter Location Date Provider Diagnosis [facility] [place] [address] [place] [id number] 03/20/2025 Corby Sanchez Plan Of Treatment No Information Progress Notes * JORGE KYRIE GDOB:[birth year] (69 yo M)Acc No.[id number]:03/20/2025 COLON WITH MAC Patient: KYRIE LAWRENCE Provider: Del Sanchez MD :1955 A ge:69 Y S ex:Male Date:03/20/2025 Address:[address] [place], [place] [phone] Pcp:Blue Acosta MD Subjective: * Chief Complaints: [...] 03/20/2025 Generated for Printi ng/Faxing/eTransmitting on: 1 02:48 PM EDT
--- OUTSIDE RECORDS SUMMARY | 2025-03-30 09:10 | XMS_ITS ---
Author Organization [facility] Address [address] [place] [phone] Care Team Providers Care Cheerleading Coach Name Role Phone Blue Acosta MD Primary Care Provider Corby Michel [phone] Encounters Encounter Location Date Provider Diagnosis [facility] [place] [address] [place] [id number] 03/30/2025 Corby Sanchez Colon cancer scree ascencion [...] KYRIE JORGE GDOB:[birth year] (69 yo M)Acc No.[id number]:03/30/2025 COLON WITH MAC Patient: Yanick COLEMANPEYMAN KYRIE G Provider: Del Sanchez MD :1955 A ge:69 Y S ex:Male Date:03/30/2025 Address:[address] [place], [place] [phone] Pcp:Blue Acosta MD Subjective: * Chief Complaints: [...] 03/30/2025 Generated for Navjot mccall/Janay/Dietersmitting on: 1 02:48 PM EDT
--- OUTSIDE RECORDS SUMMARY | 2025-07-10 03:00 | XMS_ITS ---
Author Organization Blue Acosta MD Address [address] [place], [place] [phone] Care Team Providers Care Servomechanism Assembler Name Role Phone Blue Acosta Primary Care Provider Results Component Value Reference Range Notes Complete Blood Count Auto Di ff Reviewed date:07/10/2025 12:29:22 PM Interpretation: Performing Lab:[facility], [address] [place] [phone] Notes/Report: White Blood Count 10.2 4.8-10.8 X10*3/uL [...] Panel Reviewed date:07/10/2025 12:29:39 PM Interpretation: Performing Lab:[address] [phone] Notes/Report: Triglycerides 98 <150 mg/dL Desirable Triglyceride: [...] (Free>4and<10) Reviewed date:07/10/2025 12:29:01 PM Interpretation: Performing Lab:[facility], [address] [place] [phone] Notes/Report: PSA,Total (Free>4and<10) 0.26 0.00-4.00 ng/mL A [...] A1c Reviewed date:07/10/2025 12:28:51 PM Interpretation: Performing Lab:[facility], [address] [place] [phone] Notes/Report: Hemoglobin A1c % 6.1 <6.0 % [...] average glucose, using the formula of the S1J-Fkbvvrv Average Glucose study (ADAG), Diabetes Care, Vol.31,#8, May. 2007 REASON FOR VISIT FASTING LABS Immunizations Vaccine Route Administration Date Status Comme nts Influenza High Dose IM Intramuscular 07/10/2025 Administer ed Encounters Encounter Location Date Provider Diagnosis Blue Acosta MD [address] [place], [place] [phone] 07/10/2025 Blue Acosta Mixed hyperlipidemia E78.2 ; [...] Pending Test Test Name Order Date Comprehensive [place]. Panel Fast 5 Microalbumin, Random 07/10/2025 UA ClnCatch+Micro w/rflx Cult 07/10/2025 Next Appt Details Provider Name:Blue garrido, 08/18/2025 09:00:00 AM, [address], [address], [place], [place], [phone], Provider Name:Blue Arechiga ier, 01/18/2026 07:30:00 AM, [address], [address], [place], [phone], Provider Name:Blue Arechiga ier, 01/25/2026 09:00:00 AM, [address], [address], [place], [phone], Provider Name:Blue Arechiga ier, 07/12/2026 07:00:00 AM, [address], [address], [place], [phone], Provider Name:Blue Arechiga ier, 07/19/2026 08:30:00 AM, [address], [address], [place], [phone], Progress Notes * Mahin AMBROCIO GDOB:[birth year] (69 yo M)Acc No.[id number]:07/10/2025 Progress Note Patient: Mahin LAWRENCE Provider: Madan Acosta MD :1955 A ge:69 Y S ex:Male Date:07/10/2025 Address:[address] [place], [place] [phone] Subjective: * Chief Complaints: * 1 . FASTING LABS. * Medical History: Objective: * Vitals: Assessment: * Assessment: 1. E ncounter for administration of vaccine - Z23 (Primary) 2 . M ixed hyperlipidemia - E78.2 3 . E ssential hypertension - I10 4 . P rediabetes - R73.09 Plan: * Treatment: 2. E ssential hypertension L AB: Comprehensive [place]. Panel Fast L AB: Microalbumin, Random L [...] AM) 3. P rediabetes L AB: Comprehensive [place]. Panel Fast L AB: Microalbumin, Random L [...] * Procedure Codes: 3 6415 VENIPUNCT, ROUTINE*, 40064 FLU VACC PRSV FREE INC ANTIG, G0008 [...] 07/10/2025 Generated for Navjot mccall/Janay/Tanoitting on: 1 02:47 PM EDT
--- OUTSIDE RECORDS SUMMARY | 2025-07-16 04:00 | XMS_ITS ---
Author Organization Blue Acosta MD Address [address] [place], [place] [phone] Care Team Providers Care Band Straightener Name Role Phone Blue Acosta Primary Care Provider Allergies Allergen (clinical drug ingredient) Drug/Non Drug Allergy documented on EMR Reaction Allergy Type Onset Date Status zolpidem ambien (uncoded) hallucinations Allergy Active amoxil (uncoded) rash Allergy Act dick Results Component Value Reference Range Notes Microalbumin, Random Reviewed date:07/16/2025 12:43:31 PM Interpretation: Performing Lab:[facility], [address] [place] [phone] Notes/Report: Creatinine Urine 91.72 Microalbumin Urine 8.0 Microalbum/Creatinine Ratio Ur 8.7 <30 ug/mg cr Albumin/Creatinine Ratio Reference Ranges: Normal: < 30 ug/mg creatinine Microalbuminuria: 30 - 300 ug/mg creatinine Clinical Albuminuria: > 300 ug/mg creatinine UA ClnCatch+Micro w/rflx Cul t Reviewed date:07/16/2025 12:43:48 PM Interpretation: Performing Lab:[facility], [address] [place] [phone] Notes/Report: Urine, Clean Catch Color Urine Yellow Appearance Urine Clear PH 6.5 5.0-9.0 Glucose Urine UA Negative Negative mg/dL Urine Blood Negative Negative Specific [place] - Urine 1.015 1.005-1.025 Urine Protein Negative [...] Status W/U Status Risk Notes Problem Sinusitis (81194448) Sinusitis (J32.9) Active confirmed Vital Signs Blood pressure systolic 162 mm Hg 07/16/20 25 Blood pressure diastolic 80 mm Hg 025 Height 73 in 07/16/2025 Weight 344 lbs 07/16/2025 BMI 45.38 kg/m2 07/16/2025 weight is up 6 pounds since 01-09-25 Encounters Encounter Location Date Provider Diagnosis Blue Acosta MD [address] [place] [address] [place] [phone] 07/16/2025 Blue Acosta Prediabetes R73.09 ; Essential [...] Provider Name:Blue Arechiga ier, 08/18/2025 09:00:00 AM, [address] [place] [address], [address] [place] [address], [phone], Provider Name:Blue Arechiga ier, 01/18/2026 07:30:00 AM, [address] [place] [address], [address], [phone], Provider Name:Blue reyr, 01/25/2026 09:00:00 AM, [address] [place] [address], [address], [phone], Provider Name:Blue Arechiga ier, 07/12/2026 07:00:00 AM, [address] [place] [address], [address], [phone], Provider Name:Blue Arechiga ier, 07/19/2026 08:30:00 AM, [address] [place] [address], [address], [phone], Progress Notes * Mahin AMBROCIO GDOB:[birth year] (69 yo M)Acc No.[id number]:07/16/2025 Patient: Yanick COLEMANMahin MORLEY Provider: Madan Acosta MD :1955 A ge:69 Y S ex:Male Date:07/16/2025 Address:[address] [place], [place] [phone] Subjective: * Chief Complaints: * R eview [...] MD Date: Generated for Navjot mccall/Janay/Tanoitting on: 02:49 PM EDT History and Physical Notes * [...]
--- OUTSIDE RECORDS SUMMARY | 2025-08-04 09:25 | XMS_ITS ---
Author Organization Blue Acosta MD Address [address] [place] [address] [place] [address] [phone] Care Team Providers Care Concrete Truck Driver Name Role Phone Blue Acosta Primary Care Provider [phone] REASON FOR VISIT ER Encounters Encounter Location Date Provider Diagnosis Blue Acosta MD [address] [place] [address] [place] [address] [phone] 08/04/2025 Blue Acosta Plan Of Treatment Next Appt Details Provider Name:Blue garrido, 08/18/2025 09:00:00 AM, [address] [place] [address], [address], [phone], Provider Name:Blue garrido, 01/18/2026 07:30:00 AM, [address] [place] [address], [address], [phone], Provider Name:Blue garrido, 01/25/2026 09:00:00 AM, [address] [place] [address], [address], [phone], Provider Name:Blue garrido, 07/12/2026 07:00:00 AM, [address] [place] [address], [address], [phone], Provider Name:Blue garrido, 07/19/2026 08:30:00 AM, [address] [place] [address], [phone], Progress Notes * Mahin AMBROCIO GDOB:[birth year] (69 yo M)Acc No.[id number]:08/04/2025 Patient: Mahin LAWRENCE :1955 A ge:69 Y S ex:Male Address:[address] [place], [place] [phone] * true * Date: Generated for Navjot mccall/Janay/Tanoitting on: 02:47 PM EDT
--- OUTSIDE RECORDS SUMMARY | 2025-08-10 14:48 | XMS_ITS | Patient Health Record ---
Author Organization [facility] hallie [place] Address [address] [place] [address] Care Team Providers Care Hand Bulldozer Name Role Phone Blue Acosta MD Primary Care Provider Milli Jimenez Unavailable [phone] Allergies Allergen (clinical drug ingredient) Drug/Non Drug [...] W/U Status Risk Notes Problem Tinea unguium (130771640) Tinea unguium (B35.1) Active confirmed Problem Acquired hammer toe of left foot (5961195647909612 ) Other hammer toe(s) (acquired), left foot (M20.42) Active confirmed Problem Localized, primary osteoarthritis of the ankle and/or foot (160457330) Arthritis of joint of lesser toe, left [...] X ray : Foot, left 3V 05/06/2024 [id number] NAIL, 1-5 08/17/2023 [id number] NAIL, 1-5 03/31/2016 27124- Debride <25 sq cm 09/02/2013 96578- Debride <25 sq cm 08/17/2023 [id number] SKIN/TISSUE 07/07/2013 [id number] SKIN/TISSUE 07/22/2013 [id number] SKIN/TISSUE 08/12/2013 Insurance Providers Payer Name Payer Address Payer Phone Subscriber Number Group Number Insured Name Patient Relationship to Insured Coverage Start Date Coverage End Date Medicare National [employer] [address] [place] [address] [id number] Mahin Ha Self - patient is the insured [facility] ([facility]) [address] [place] [address] [phone] [id number] Mahin Ha Self - patient is [...]
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
--- OUTSIDE RECORDS SUMMARY | 2025-08-10 14:49 | XMS_ITS | Patient Health Record ---
Author Organization Blue Acosta MD Address [address] [place], [place] [address] Care Team Providers Care Beauty Shop Manager Name Role Phone Blue Acosta Primary Care Provider Allergies Allergen (clinical drug ingredient) Drug/Non Drug Allergy documented on EMR Reaction Allergy Type Onset Date Status zolpidem ambien (uncoded) hallucinations Allergy Active amoxil (uncoded) rash Allergy Act dick Results Component Value Reference Range Notes Liver Panel Reviewed date:01/02/2025 12:30:46 PM Interpretation: Performing Lab:[facility], [address] [place] [phone] Notes/Report: Bilirubin Total 0.6 0.0-1.0 mg/dL Bilirubin Direct 0.3 0.0-0.5 mg/dL Aspartate Amino Transferase 29 5-37 U/L Alanine Aminotransferase 22 0-40 U/L Total Protein 7.6 6.5-8.0 g/dL Albumin Level 3.9 3.5-5.0 g/dL Alkaline Phosphatase 80 39-117 U/L Glucose Fasting Reviewed date:01/02/2025 12:30:54 PM Interpretation: Performing Lab:[facility], [address] [place] [phone] Notes/Report: Glucose Fasting 118 60-99 mg/dL A fasting glucose from 100-125 mg/dl is considered impaired (pre-diabetes). Lipid Panel with Reflex Reviewed date:01/02/2025 12:31:05 PM Interpretation: Performing Lab:[facility], [address] [place] [phone] Notes/Report: Triglycerides 118 <150 mg/dL Desirable Triglyceride: [...] A1c Reviewed date:01/03/2025 06:16:13 PM Interpretation: Performing Lab:[address] [address] Notes/Report: Hemoglobin A1c % 5.6 <6.0 % [...] average glucose, using the formula of the W5V-Cuxetko Average Glucose study (ADAG), Diabetes Care, Vol.31,#8, May. 2007 Complete Blood Count Auto Di ff Reviewed date:07/10/2025 12:29:22 PM Interpretation: Performing Lab:[facility], [address] [place] [phone] Notes/Report: White Blood Count 10.2 4.8-10.8 X10*3/uL [...] Panel Reviewed date:07/10/2025 12:29:39 PM Interpretation: Performing Lab:[facility], [address] [place] [address] Notes/Report: Triglycerides 98 <150 mg/dL Desirable Triglyceride: [...] (Free>4and<10) Reviewed date:07/10/2025 12:29:01 PM Interpretation: Performing Lab:[address] [address] Notes/Report: PSA,Total (Free>4and<10) 0.26 0.00-4.00 ng/mL A [...] A1c Reviewed date:07/10/2025 12:28:51 PM Interpretation: Performing Lab:[address] [address] Notes/Report: Hemoglobin A1c % 6.1 <6.0 % [...] average glucose, using the formula of the A7J-Jebdnqt Average Glucose study (ADAG), Diabetes Care, Vol.31,#8, May. 2007 Microalbumin, Random Reviewed date:07/16/2025 12:43:31 PM Interpretation: Performing Lab:[address] [address] Notes/Report: Creatinine Urine 91.72 Microalbumin Urine 8.0 Microalbum/Creatinine Ratio Ur 8.7 <30 ug/mg cr Albumin/Creatinine Ratio Reference Ranges: Normal: < 30 ug/mg creatinine Microalbuminuria: 30 - 300 ug/mg creatinine Clinical Albuminuria: > 300 ug/mg creatinine UA ClnCatch+Micro w/rflx Cul t Reviewed date:07/16/2025 12:43:48 PM Interpretation: Performing Lab:[facility], [address] [place] [phone] Notes/Report: Urine, Clean Catch Color Urine Yellow Appearance Urine Clear PH 6.5 5.0-9.0 Glucose Urine UA Negative Negative mg/dL Urine Blood Negative Negative Specific [place] - Urine 1.015 1.005-1.025 Urine Protein Negative Neg-Trace mg/dL Urine Ketones Negative Negative mg/dL Nitrite Urine Negative Negative Leukocyte Esterase Urine Negative Negative RBC Urine 0-2 0-2 /HPF WBC Urine 0-5 0-5 /HPF Squamous Epithelial Cell Urine 0-2 0-2 /HPF Bacteria Urine None Seen None Seen Hyaline Casts Urine 0-2 0-2 /LPF Hold Gold Reviewed date:01/02/2025 12:23:00 PM Interpretation: Performing Lab:[facility], [address] [place] [phone] Notes/Report: Johnie Milner See Note Specimen held untested for 24 hours; Call to request Chemistry testing. Complete Blood Count Auto Di ff Reviewed date:01/06/2025 08:02:47 PM Interpretation: Performing Lab:[facility], [address] [place] [phone] Notes/Report: White Blood Count 12.8 4.8-10.8 X10*3/uL [...] Panel Reviewed date:01/06/2025 08:04:15 PM Interpretation: Performing Lab:[facility], [address] [place] [phone] Notes/Report: Sodium 140 135-145 mmol/L Potassium 4.1 [...] Magnesium Reviewed date:01/06/2025 07:58:26 PM Interpretation: Performing Lab:[facility], [address] [place] [phone] Notes/Report: Magnesium 1.8 1.6-2.6 mg/dL Lipase Reviewed date:01/06/2025 07:58:34 PM Interpretation: Performing Lab:[facility], [address] [place] [phone] Notes/Report: Lipase 23 8-78 U/L CT NG by PCR Reviewed date:01/07/2025 02:59:49 PM Interpretation: Performing Lab:[facility], [address] [place] [phone] Notes/Report: Urine CT PCR NOT DETECTED Not [...] Cult Reviewed date:01/08/2025 04:41:34 PM Interpretation: Performing Lab:[facility], [address] [place] [phone] Notes/Report: Urine, Clean Catch Color Urine Yellow Appearance Urine Clear PH 5.5 5.0-9.0 Glucose Urine UA Negative Negative mg/dL Urine Blood Negative Negative Specific [place] - Urine 1.015 1.005-1.025 Urine Protein Negative Neg-Trace mg/dL Urine Ketones Negative Negative mg/dL Nitrite Urine Negative Negative Leukocyte Esterase Urine Negative Negative CT abdomen pelvis wo con Reviewed date:01/06/2025 08:03:52 PM Interpretation: Performing Lab: Notes/Report: [facility] [address] [place] [address] CT Scan Report Signed Patient: Mahin Ambrocio MR#: [id number] 045 : 1955 Acct:[id number] Age/Sex: 69 / M ADM Date: 01/06/25 Loc: .ED Attending Dr: Ordering Physician: Cristina Birmingham Date of Service: 01/06/25 Procedure(s): CT abdomen pelvis wo IV con Accession Number(s): [id number] cc: Blue Acosta MD; Cristina Birmingham Report Number: [id number]: Total DLP = 1401.00 mGy-cm EXAMINATION: CT [...] 01/06/25 1414 DD/ 1310 TD/TT: 01/06/[address] Reporter: [address] [address] [address] Scan Report Signed Patient: Ziyad Ambrocio in G MR#: [id number] 045 : 1955 Acct:[id number] Age/Sex: 69 / M ADM Date: 01/06/25 Loc: .ED Attending Dr: Ordering Physician: Critsina Birmingham Date of Service: 01/06/25 Procedure(s): CT abd omen pelvis wo IV con Accession Number(s): [id number] cc: Blue Acosta MD; Cristina Birmingham Report Number: [id number]: Total DLP = 1401.00 mGy-cm EXAMINATION: CT [...] 01/06/25 1414 DD/ 1310 TD/TT: 01/06/[address] Reporter: US scrotum Reviewed date:01/07/2025 03:00:25 PM Interpretation: Performing Lab: Notes/Report: [address] [address] Ultrasound Report Signed Patient: Mahin Ambrocio MR#: [id number] 045 : 1955 Acct:[id number] Age/Sex: 69 / M ADM Date: 01/06/25 Loc: HO.ED Attending Dr: Ordering Physician: Omid Lopez MD Date of Service: 01/06/25 Procedure(s): US scrotum Accession Number(s): [id number] cc: Blue Acosta MD; Omid Lopez MD CLINICAL HISTORY: L testicular pain. Ultrasound scrotum. COMPARISON: None Technique: Real time sonographic imaging, including color-flow imaging, was performed by the technology resource teacher. Multiple physician relations representative static images were saved for [...] OV> 01/07/25 0804 DD/ 15 TD/TT: 01/06/2518[address] Reporter: [place] [address] Ultrasound Report Signed Patient: Ziyad Ambrocio MR#: [id number] 045 : 1955 Acct:[id number] Age/Sex: 69 / M ADM Date: 01/06/25 Loc: .ED Attending Dr: Ordering Physician: Omid Lopez MD Date of Service: 01/06/25 Procedure(s): US scrotum Accession Number(s): [id number] cc: Blue Acosta MD; Omid Lopez MD CLINICAL HISTORY: L testicular pain. Ultrasound scrotum. COMPARISON: None Technique: Real time sonographic imaging, including color-flow imaging, was performed by the technology resource teacher. Multiple physician relations representative static images were saved for [...] OV> 01/07/25 0804 DD/ 15 TD/TT: 01/06/2518[address] Reporter: US scrotum doppler Reviewed date:01/06/2025 08:04:52 PM Interpretation: Performing Lab: Notes/Report: [address] [address] Ultrasound Report Signed Patient: Mahin Ambrocio MR#: [id number] 045 : 1955 Acct:[id number] Age/Sex: 69 / M ADM Date: 01/06/25 Loc: HO.ED Attending Dr: Ordering Physician: Louise Callejas Date of Service: 01/06/25 Procedure(s): US scrotum doppler Accession Number(s): [id number] cc: Blue Acosta MD; Louise Callejas CLINICAL HISTORY: L testicular pain. Ultrasound scrotum. COMPARISON: None Technique: Real time sonographic imaging, including color-flow imaging, was performed by the technology resource teacher. Multiple physician relations representative static images were saved for [...] in OV> 01/06/251815 DD/ 15 TD/TT: 01/06/25[address] Reporter: [place] [address] Ultrasound Report Signed Patient: Ziyad Ambrocio MR#: [id number] 045 : 1955 Acct:[id number] Age/Sex: 69 / M ADM Date: 01/06/25 Loc: HO.ED Attending Dr: Ordering Physician: Louise Callejas Date of Service: 01/06/25 Procedure(s): US scr otum doppler Accession Number(s): [id number] cc: Blue Acosta MD; Louise Callejas CLINICAL HISTORY: L testicular pain. Ultrasound scrotum. COMPARISON: None Technique: Real time sonographic imaging, including color-flow imaging, was performed by the technology resource teacher. Multiple physician relations representative static images were saved for [...] in OV> 01/06/251815 DD/ 15 TD/TT: 01/06/25[address] Reporter: XR chest 2V Reviewed date:01/13/2025 02:56:25 PM Interpretation: Performing Lab: Notes/Report: [address] [address] XRay Report Signed Patient: Mahin Ambrocio MR#: [id number] 045 : 1955 Acct:[id number] Age/Sex: 69 / M ADM Date: 01/09/25 Loc: HO.XRAY Attending Dr: Blue Acosta MD Ordering Physician: Blue Acosta MD Date of Service: 01/09/25 Procedure(s): XR chest 2V Accession Number(s): [id number] cc: Blue Acosta MD EXAMINATION: XR CHEST [...] 01/09/25 1059 DD/ 1000 TD/TT: 01/09/[address] Reporter: [address] [address] XRay Report Signed Patient: Ziyad Ambrocio MR#: [id number] 045 : 1955 Acct:[id number] Age/Sex: 69 / M ADM Date: 01/09/25 Loc: HO.XRAY Attending Dr: Blue Acosta MD Ordering Physician: Blue Acosta MD Date of Service: 01/09/25 Procedure(s): XR isaias st 2V Accession Number(s): [id number] cc: Blue Acosta MD EXAMINATION: XR CHEST [...] 01/09/25 1059 DD/ 1000 TD/TT: 01/09/[address] Reporter: MR summers wo/w con Reviewed date:02/17/2025 04:48:05 PM Interpretation: Performing Lab: Notes/Report: [place] [address] Magnetic Resonance Report Signed Patient: Mahin Ambrocio MR#: [id number] 045 : 1955 Acct:[id number] Age/Sex: 69 / M ADM Date: 02/16/25 Loc: HO.MRI Attending Dr: Jamey Rojas MD Ordering Physician: Jamey Rojas MD Date of Service: 02/16/25 Procedure(s): MR abdomen wo/w con Accession Number(s): [id number] cc: Blue Acosta MD; Jamey Rojas MD CLINICAL HISTORY: N28.1 - Cyst of kidney, acquired MR abdomen with and without gadolinium Comparison: CT/[place]/SR - CT ABDOMEN PELVIS WO IV CON [...] OV> 02/17/25 1311 DD/ 130 TD/TT: 02/17/251308 Official Court Reporter: [place] [address] Magnetic Resonance Report Signed Patient: Ziyad Ambrocio MR#: [id number] 045 : 1955 Acct:[id number] Age/Sex: 69 / M ADM Date: 02/16/25 Loc: HO.MRI Attending Dr: Jamey Rojas MD Ordering Physician: Jamey Rojas MD Date of Service: 02/16/25 Procedure(s): MR abd omen wo/w con Accession Number(s): [id number] cc: Blue Acosta MD; Jamey Rojas MD CLINICAL HISTORY: N2 8.1 - Cyst of kidney, acquired MR abdomen with and without gadolinium Comparison: CT/[place]/SR - CT ABDOMEN PELVIS WO IV CON [...] OV> 02/17/25 131 DD/ 08 TD/TT: 02/17/251308 Official [address] Reporter: XR lumbar spine 4V min Reviewed date:02/23/2025 12:34:44 PM Interpretation: Performing Lab: Notes/Report: [facility] [address] [place] [address] XRay Report Signed Patient: Mahin Ambrocio MR#: [id number] 045 : 1955 Acct:[id number] Age/Sex: 69 / M ADM Date: 02/20/25 Loc: HO.HOSX Attending Dr: Simon Solano MD, PhD Ordering Physician: Simon Solano MD, PhD Date of Service: 02/20/25 Procedure(s): XR lumbar spine 4V min Accession Number(s): [id number] cc: Blue Acosta MD; Simon Solano MD, PhD CLINICAL HISTORY: M43.16 - Spondylolisthesis, lumbar region 4 views lumbar spine Comparison: CT/[place]/SR - CT ABDOMEN PELVIS WO IV CON [...] in OV> 02/23/2523 DD/ 1 TD/TT: 02/23/[address] Reporter: [facility] [address] [place] [address] XRay Report Signed Patient: Ziyad Ambrocio MR#: [id number] 045 : 1955 Acct:[id number] Age/Sex: 69 / M ADM Date: 02/20/25 Loc: HO.HOSX Attending Dr: Richard Solano MD, PhD Ordering Physician: Simon Solano MD, PhD Date of Service: 02/20/25 Procedure(s): XR lum bar spine 4V min Accession Number(s): [id number] cc: Blue Acosta MD; Simon Solano MD, PhD CLINICAL HISTORY: M4 3.16 - Spondylolisthesis, lumbar region 4 views lumbar spine Comparison: CT/[place]/SR - CT ABDOMEN PELVIS WO IV CON [...] in OV> 02/23/25822 DD/ 1 TD/TT: 02/23/[address] Reporter: US bladder Reviewed date:05/28/2025 12:37:23 PM Interpretation: Performing Lab: Notes/Report: [facility] [address] [place] [address] Ultrasound Report Signed Patient: Mahin Ambrocio MR#: [id number] 045 : 1955 Acct:[id number] Age/Sex: 69 / M ADM Date: 05/28/25 Loc: HO.HMGCX Attending Dr: Don Aj MD Ordering Physician: Don Aj MD Date of Service: 05/28/25 Procedure(s): US bladder Accession Number(s): [id number] cc: Don Aj MD; Blue Acosta MD CLINICAL HISTORY: N32.0 - Bladder-neck obstruction US bladder with color Doppler Comparison: [place] - US SCROTUM DOPPLER - 01/06/25 17:[address]/[place]/SR - CT ABDOMEN PELVIS WO IV CON [...] in OV> 05/28/25946 DD/ 5 TD/TT: 05/28/[address] Reporter: [facility] [address] [place] [address] [place] [address] Ultrasound Report Signed Patient: Ziyad Ambrocio G MR#: [id number] 045 : 1955 Acct:[id number] Age/Sex: 69 / M ADM Date: 05/28/25 Loc: [facility]WHMGCX Attending Dr: Joselin Bach MD Ordering Physician: Don Aj MD Date of Service: 05/28/25 Procedure(s): US bladder Accession Number(s): [id number] cc: Don Aj MD; Blue Acosta MD CLINICAL HISTORY: N3 2.0 - Bladder-neck obstruction US bladder with colo r Doppler Comparison: [place] - US SCROTUM DOPPLER - 01/06/25 17:[address]/[place]/SR - CT ABDOME N PELVIS WO IV [...] in OV> 05/28/25946 DD/ 5 TD/TT: 05/28/[address] Reporter: Harshil Bates. Panel Reviewed date:07/10/2025 12:37:03 PM Interpretation: Performing Lab:[facility], [address] [place] [address] Notes/Report: Sodium 142 135-145 mmol/L Potassium 4.2 [...] ff Reviewed date:08/02/2025 02:18:12 PM Interpretation: Performing Lab:[facility], [address] [place] [address] Notes/Report: White Blood Count 7.9 4.8-10.8 X10*3/uL [...] INR Reviewed date:08/02/2025 02:16:34 PM Interpretation: Performing Lab:[address] [address] Notes/Report: Prothrombin Time 23.8 10.9-12.4 [employer] [...] Panel Reviewed date:08/02/2025 02:16:51 PM Interpretation: Performing Lab:[address] [address] Notes/Report: Sodium 140 135-145 mmol/L Potassium 4.6 [...] Complete Blood Count Auto Di ff Reviewed date:08/06/2025 08:14:33 PM Interpretation: Performing Lab:[facility], [address] [place] [address] Notes/Report: White Blood Count 8.9 4.8-10.8 X10*3/uL [...] 0.000 0.0-0.012 X10*3/uL Prothrombin Time INR Reviewed date:08/05/2025 05:37:52 PM Interpretation: Performing Lab:[facility], [address] [place] [address] Notes/Report: Prothrombin Time 18.3 10.9-12.4 [employer] [...] valves: 2.5 - 3.5 Basic Metabolic Panel Reviewed date:08/05/2025 05:42:43 PM Interpretation: Performing Lab:[address] [address] Notes/Report: Sodium 141 135-145 mmol/L Potassium 4.2 [...] Administered pt was given the vaccine at [facility] on [facility]. Fluarix Quadrivalent IM Intramuscular 06/24/2018 [...] Problem Status W/U Status Risk Notes Problem 338204598 Diverticulitis (K57.92) Active confirmed Problem Sinusitis (31828173) Sinusitis (J32.9) Active c onfirmed Problem 430939532 Mixed hyperlipidemia (E78.2) Active confirmed Problem 175572250 Paroxysmal atria l fibrillation (I48.0) Active confirmed Problem 45399564 Atherosclerosis of aorta (I70.0) Active confirmed Problem 43389367354387447 Acute recurren t frontal sinusitis (J01.11) Active confirmed Problem 457391752 Angina effort (I20.8) Active confirmed Problem 401115570 Lumbar disc disease (M51.9) Active confirmed Problem 571078483 Tubular adenoma of colon (D12.6) Active confirmed Problem 91839581 Essential hypertension (I10) Active confirmed Problem 1155080 Prediabetes (R73.09) Active confirmed Problem 066553906 Morbid obesity due to excess calories (E66.01) Active confirmed Problem 726218156 Cervical disc disease (M50.90) Active confirmed Problem 750109687 Hammertoe of lef t foot (M20.42) Active [...] Diagnosis Blue Acosta MD [address] [place] [id number] 01/02/2025 Blue cAosta Mixed hyperlipidemia E78.2 and Prediabetes R73.09 Blue Acosta MD [address] [place] [address] [id number] 07/10/2025 Blue Acosta Mixed hyperlipidemia E78.2 ; Encounter for administration of vaccine Z23 ; Essential hypertension I10 and Prediabetes R73.09 Blue Acosta MD [address] [place] [id number] 01/09/2025 Blue Acosta Pleural effusion J90 ; Lumbar disc disease with radiculopathy M51.16 ; Foot drop, left M21.372 ; Prediabetes R73.09 and Mixed hyperlipidemia E78.2 Blue Acosta MD [address] [place] [address] Drive [address] [place] [id number] 07/16/2025 Blue Acosta Prediabetes R73.09 ; Essential hypertension I10 ; Sinusitis J32.9 ; Mixed hyperlipidemia E78.2 ; Paroxysmal atrial fibrillation I48.0 and Depression screening Z13.31 Blue Acosta MD [address] [place] [id number] 01/08/2025 Blue Ac[address] [place] [id number] 01/12/2025 Blue Acosta MD [address] [place] [address] [id number] 01/13/2025 Blue Acosta Pleural effusion J90 Blue Acosta MD [address] [id number] 08/04/2025 Blue Acosta Assessments Encounter Date Diagnosis [...] testing, THE ORDER HAS BEEN FAXED TO [facility] FOR SCHEDULING 07/16/2025 Prediabetes (ICD-10 - R73.09) [...] 2 VIEW PA & LAT 01/09/2025 Comprehensive [place]. Panel Fast 5 Microalbumin, Random 07/10/2025 XR chest 2V 01/13/2025 UA ClnCatch+Micro w/rflx Cult 07/10/2025 Future Test Test Name Order Date CT ABD & PELVIS WITH CONTRAST 2020 Next Appt Details Provider Name:Blue garrido, 08/18/2025 09:00:00 AM, [address] [place] [address], [address] [place] [address], [phone], Provider Name:Blue garrido, 01/18/2026 07:30:00 AM, [address] [place] [address], [address] [place] [address], [phone], Provider Name:Blue garrido, 01/25/2026 09:00:00 AM, [address] [place] [address], [address], [phone], Provider Name:Blue garrido, 07/12/2026 07:00:00 AM, [address] [place] [address], [address], [phone], Provider Name:Blue garrido, 07/19/2026 08:30:00 AM, [address] [place] [address], [address], [phone], Insurance Providers Payer Name Payer Address Payer Phone Subscriber Number Group Number Insured Name Patient Relationship to Insured Coverage Start Date Coverage End Date MEDICARE NHIC SOL [address] [place] [address] [id number] Mahin Ambrocio Self - patient is the insured [facility] [address] [place] [phone] [id number] Mahin Ambrocio Self - patient is the insured Medical (General) History Medical History History ICD Code colonoscopy 04/2012 for recta l bleeding due in 10 years; Colonoscopy done 10/27/[address] Sanchez - repeat 5 years. 03/30/25 colonoscopy - Daniel repeat 5y
== END 2025-08-10 11:28 | disposition home or self-care (01) ==
LOC: HO.HMGAL 11:28
PROVIDERS: PCP Internal Medicine; Visit Provider Registered Nurse Emergency
DX: J30.89 Other allergic rhinitis (principal)
CPT/HCPCS: 95117; 95165

== ENCOUNTER → 2025-08-12 10:17 | Outpatient (REF) | payer MEDICARE, OTHER, SELFPAY ==
--- OUTSIDE RECORDS SUMMARY | 2024-04-09 11:15 | XMS_ITS ---
Author Organization [facility] Address [address] [place] [address] Care Team Providers Care Graduate Student Instructor Name Role Phone Blue Acosta MD Primary Care Provider Milli Jimenez Unavailable [phone] Camara Encounters Encounter Location Date Provider Diagnosis [facility] [address] [place] [address] 04/09/2024 Milli Yost Plan Of Treatment No Information Progress Notes * Mahin JORGE GDOB:[birth year] (69 yo M)Acc No.[id number]:04/09/2024 Progress Note Patient: Mahin LAWRENCE Provider: Harjit Yost DPM :1955 A ge:68 Y S ex:Male Date:04/09/2024 Address: [id number] Pcp:Blue Acosta MD Subjective: * Chief Complaints: [...] 04/09/2024 Generated for Navjot mccall/Janay/Kristy on: 1 12:43 PM EDT
--- OUTSIDE RECORDS SUMMARY | 2024-04-23 06:00 | XMS_ITS ---
Author Organization [facility] Address [address] [facility] [place] [address] Care Team Providers Care Modeling And Simulation Analyst Name Role Phone Karla PAZ, Blue Primary Care Provider UnaMilli Barrett Unavailable [phone] Encounters Encounter Location Date Provider Diagnosis Surgery [facility] ([facility]) [address] [place] [phone] 04/23/2024 Milli Yost Plan Of Treatment No Information Progress Notes * Mahin JORGE GDOB:[birth year] (69 yo M)Acc No.[id number]:04/23/2024 Patient: Mahin LAWRENCE Provider: Harjit Yost DPM [...] 04/23/2024 Generated for Printi ng/Faxing/eTransmitting on: 1 12:45 PM EDT
--- OUTSIDE RECORDS SUMMARY | 2024-07-03 03:30 | XMS_ITS ---
Author Organization Blue Acosta MD Address [address] [place], [place] [id number] Care Team Providers Care Glass Etcher Name Role Phone Blue Acosta Primary Care Provider Results Component Value Reference Range Notes Complete Blood Count Auto Di ff Reviewed date:07/03/2024 05:03:13 PM Interpretation: Performing Lab:[facility], [address] [place] [phone] Notes/Report: White Blood Count 8.5 4.8-10.8 X10*3/uL [...] NRBC Abs Auto 0.000 0.0-0.012 X10*3/uL Comprehensive [place]. Panel Fa st Reviewed date:07/03/2024 12:20:41 PM Interpretation: Performing Lab:[facility], [address] [place] [phone] Notes/Report: Sodium 140 135-145 mmol/L Potassium 4.2 3.3-5.1 mmol/L Chloride 105 96-108 mmol/L Carbon Dioxide 28 22-29 mmol/L Anion Gap 11 12-20 Blood Urea Nitrogen 16 9-16 mg/dL Creatinine 0.91 0.5-1.4 mg/dL Estimated Glomerular Filt Rate > 60 NOTE: For -Ukrainian individuals, multiply the result by 1.210. Chronic [...] Panel Reviewed date:07/03/2024 12:16:21 PM Interpretation: Performing Lab:[facility], [address] [place] [phone] Notes/Report: Triglycerides 103 <150 mg/dL Desirable Triglyceride: [...] (Free>4and<10) Reviewed date:07/03/2024 12:17:59 PM Interpretation: Performing Lab:[address] [phone] Notes/Report: PSA,Total (Free>4and<10) 0.31 0.00-4.00 ng/mL A [...] Random Reviewed date:07/03/2024 12:30:42 PM Interpretation: Performing Lab:[facility], [address] [place] [phone] Notes/Report: Creatinine Urine 52.54 Microalbumin Urine < 5.0 Microalbum/Creatinine Ratio Ur TNP <30 ug/mg cr Unable to calculate albumin/creatinine ratio due to low microalbumin or creatinine result. Hemoglobin A1c Reviewed date:07/03/2024 12:16:31 PM Interpretation: Performing Lab:[address] [phone] Notes/Report: Hemoglobin A1c % 5.6 <6.0 % [...] average glucose, using the formula of the T2Y-Xonuaqv Average Glucose study (ADAG), Diabetes Care, Vol.31,#8, May. 2007 UA ClnCatch+Micro w/rflx Cul t Reviewed date:07/03/2024 12:27:43 PM Interpretation: Performing Lab:[facility], [address] [place] [phone] Notes/Report: Urine, Clean Catch Color Urine Yellow Appearance Urine Clear PH 5.5 5.0-9.0 Glucose Urine UA Negative Negative mg/dL Urine Blood Negative Negative Specific [place] - Urine 1.010 1.005-1.025 Urine Protein Negative [...] Date Provider Diagnosis Blue Acosta MD [address] [facility] [address] [place], [place] [id number] 07/03/2024 Blue Acosta Mixed hyperlipidemia E78.2 ; [...] 09:00:00 AM, [address], [address], [place], [place], [id number], Provider Name:Blue Arechiga ier, 01/18/2026 07:30:00 AM, [address], [address], [place], [id number], Provider Name:Blue Arechiga ier, 01/25/2026 09:00:00 AM, [address], [address], [place], [id number], Provider Name:Blue Arechiga ier, 07/12/2026 07:00:00 AM, [address], Suite [facility], [place], [id number], Provider Name:Blue Arechiga ier, 07/19/2026 08:30:00 AM, [address] [facility], Suite [facility], [place], [id number], Progress Notes * Mahin AMBROCIO GDOB:[birth year] (69 yo M)Acc No.[id number]:07/03/2024 Progress Note Patient: Mahin LAWRENCE Provider: Madan Acosta MD :1955 A ge:68 Y S ex:Male Date:07/03/2024 Address:[address] [place] [address] Subjective: * Chief Complaints: * 1 . [...] - 07/03/2024 07:30 AM) L AB: Comprehensive [place]. Panel Fast (Collection Date & Time - [...] - 07/03/2024 07:30 AM) L AB: Comprehensive [place]. Panel Fast (Collection Date & Time - [...] FLU VAC NO FEE SCHED SAME DAY, [id number] VENIPUNCT, ROUTINE* * * The named appointment provid er may or may not be the originator of this progress note, and it is not deemed complete until electronically signed by the appointment provider. Sign off status: Pending * Provider: Madan Acosta MD Date: 0 07/03/2024 Generated for Navjot mccall/Janay/Tanoitting on: 1 12:46 PM EDT
--- OUTSIDE RECORDS SUMMARY | 2024-07-10 07:00 | XMS_ITS ---
Author Organization Blue Acosta MD Address [address] [place], [place] [phone] Care Team Providers Care Postal Transportation Clerk Name Role Phone Blue Acosta Primary Care [...] Location Date Provider Diagnosis Blue Acosta MD [address] [place] [address] [place] [phone] 07/10/2024 Blue Acosta Essential hypertensi on I10 [...] Reason: Provider Name:Blue garrido, 08/18/2025 09:00:00 AM, [address] [place] [address], [address], [phone], Provider Name:Blue garrido, 01/18/2026 07:30:00 AM, [address] [place] [address], [address], [phone], Provider Name:Blue garrido, 01/25/2026 09:00:00 AM, [address] [place] [address], [address], [phone], Provider Name:Blue garrido, 07/12/2026 07:00:00 AM, [address] [place] [address], [address], [phone], Provider Name:Blue garrido, 07/19/2026 08:30:00 AM, [address] [place] [address], [address], [phone], Progress Notes * Mahin AMBROCIO GDOB:[birth year] (68 yo M)Acc No.[id number]:07/10/2024 Patient: Mahin Galdamez Provider: Madan Acosta MD :1955 A ge:68 Y S ex:Male Date:07/10/2024 Address:[address] [place], [place] [phone] Subjective: * Chief Complaints: * R eview [...] 1 cat. no Travel outside of the [facility], [facility]. * Medications: T akingGabapentin 300 MG [...] mg/dL Urine Blood Negative Negative - Specific [place] - Urine 1.010 1.005-1.025 - Urine Protein [...] Urine 0-2 0-2 - /LPF L ab:Comprehensive [place]. Panel Fast (Order Date - 07/03/2024) (Collection [...] 07/10/2024 Generated for Navjot mccall/Janay/Dietersmitting on: 1 12:44 PM EDT History and Physical Notes * [...]
--- OUTSIDE RECORDS SUMMARY | 2025-01-02 04:00 | XMS_ITS ---
Author Organization Blue Acosta MD Address [address] [place], [place] [phone] Care Team Providers Care Clinical Engineer Name Role Phone Blue Acosta Primary Care Provider Results Component Value Reference Range Notes Liver Panel Reviewed date:01/02/2025 12:30:46 PM Interpretation: Performing Lab:[address] [address] Notes/Report: Bilirubin Total 0.6 0.0-1.0 mg/dL Bilirubin Direct 0.3 0.0-0.5 mg/dL Aspartate Amino Transferase 29 5-37 U/L Alanine Aminotransferase 22 0-40 U/L Total Protein 7.6 6.5-8.0 g/dL Albumin Level 3.9 3.5-5.0 g/dL Alkaline Phosphatase 80 39-117 U/L Glucose Fasting Reviewed date:01/02/2025 12:30:54 PM Interpretation: Performing Lab:[address] [address] Notes/Report: Glucose Fasting 118 60-99 mg/dL A fasting glucose from 100-125 mg/dl is considered impaired (pre-diabetes). Lipid Panel with Reflex Reviewed date:01/02/2025 12:31:05 PM Interpretation: Performing Lab:[address] [address] Notes/Report: Triglycerides 118 <150 mg/dL Desirable Triglyceride: [...] A1c Reviewed date:01/03/2025 06:16:13 PM Interpretation: Performing Lab:[facility], [address] [place] [phone] Notes/Report: Hemoglobin A1c % 5.6 <6.0 % [...] average glucose, using the formula of the J1J-Nznjwvf Average Glucose study (ADAG), Diabetes Care, Vol.31,#8, May. 2007 REASON FOR VISIT FASTING LIPIDS Encounters Encounter Location Date Provider Diagnosis Blue Acosta MD [address] [place] [address] [place] [phone] 01/02/2025 Blue Acosta Mixed hyperlipidemia E78.2 and Prediabetes R73.09 Assessments Encounter Date Diagnosis (ICD Code) Assessment Notes Treatment Notes Treatment Clinical Notes Section Notes 01/02/2025 Mixed hyperlipidemia (ICD-10 - E78.2) 01/02/2025 Prediabetes (ICD-10 - R73.09) Plan Of Treatment Next Appt Details Provider Name:Blue garrido, 08/18/2025 09:00:00 AM, [address] [place] [address], Suite [facility], [place], [place], [phone], Provider Name:Blue garrido, 01/18/2026 07:30:00 AM, [address], [address], [place], [phone], Provider Name:Blue Arechiga ier, 01/25/2026 09:00:00 AM, [address] [facility] [address], [address], [place], [phone], Provider Name:Blue Arechiga ier, 07/12/2026 07:00:00 AM, [facility], [address], [place], [place], [phone], Provider Name:Blue Arechiga ier, 07/19/2026 08:30:00 AM, [address] [facility] [address], [address], [place], [place], [phone], Progress Notes * Mahin AMBROCIO GDOB:[birth year] (69 yo M)Acc No.[id number]:01/02/2025 Progress Note Patient: Mahin LAWRENCE Provider: Madan Acosta MD :1955 A ge:69 Y S ex:Male Date:01/02/2025 Address:[address] [place], [place] [phone] Subjective: * Chief Complaints: * 1 . [...] 01/02/2025 Generated for Navjot mccall/Janay/Kristy on: 1 12:43 PM EDT
--- OUTSIDE RECORDS SUMMARY | 2025-01-08 16:26 | XMS_ITS ---
Author Organization Blue Acosta MD Address [address] [place] [address] [place] [address] [phone] Care Team Providers Care Library Technician Name Role Phone Blue Acosta Primary Care Provider REASON FOR VISIT ER Encounters Encounter Location Date Provider Diagnosis Blue Acosta MD [address] [place] [address] [place] [address] [phone] 01/08/2025 Blue Acosta Plan Of Treatment Next Appt Details Provider Name:Blue garrido, 08/18/2025 09:00:00 AM, [address] [place] [address], [address], [phone], Provider Name:Blue garrido, 01/18/2026 07:30:00 AM, [address] [place] [address], [address], [phone], Provider Name:Blue garrido, 01/25/2026 09:00:00 AM, [address] [place] [address], [address], [phone], Provider Name:Blue garrido, 07/12/2026 07:00:00 AM, [address] [place] [address], [address], [phone], Provider Name:Blue garrido, 07/19/2026 08:30:00 AM, [address] [place] [address], [phone], Progress Notes * Mahin AMBROCIO GDOB:[birth year] (69 yo M)Acc No.[id number]:01/08/2025 Patient: Mahin LAWRENCE :1955 A ge:69 Y S ex:Male Address:[address] [place], [place] [phone] * true * Date: Generated for Navjot mccall/Janay/Tanoitting on: 12:44 PM EDT
--- OUTSIDE RECORDS SUMMARY | 2025-01-09 05:15 | XMS_ITS ---
Author Organization Blue Acosta MD Address [address] [place], [place] [phone] Care Team Providers Care Cotton Grower Name Role Phone Blue Acosta Primary Care [...] kg/m2 01/09/2025 weight is down 6 pounds [facility] e 07-10-24 Encounters Encounter Location Date Provider Diagnosis Blue Acosta MD [address] [place] [address] [address] [place], [place] [phone] 01/09/2025 Blue Acosta Pleural effusion J90 ; [...] testing, THE ORDER HAS BEEN FAXED TO [facility] FOR SCHEDULING 01/09/2025 Foot drop, left (ICD-10 [...] testing, THE ORDER HAS BEEN FAXED TO [facility] FOR SCHEDULING Foot drop, left pending diagnostic t esting Prediabetes stable, no need for medication at this time, will contiue to monitor Mixed hyperlipidemia stable, will contin ue current regiment Pending Test Test Name Order Date MRI LUMBAR SPINE NO CONTRAST 01/09/2025 XR CHEST 2 VIEW PA & LAT 01/09/2025 Next Appt Details Provider Name:Blue Arechiga ier, 08/18/2025 09:00:00 AM, [address] [place] [address], [address] [place] [address], [phone], Provider Name:Blue Arechiga ier, 01/18/2026 07:30:00 AM, [address] [place] [address], [address] [place] [address], [phone], Provider Name:Blue Arechiga ier, 01/25/2026 09:00:00 AM, [address] [place] [address], [address], [phone], Provider Name:Blue Arechiga ier, 07/12/2026 07:00:00 AM, [address] [place] [address], [address] [place] [address], [phone], Provider Name:Blue Arechiga ier, 07/19/2026 08:30:00 AM, [address] [place] [address], [address] [place] [address], [phone], Progress Notes * Kyrie AMBROCIO GDOB:[birth year] (69 yo M)Acc No.[id number]:01/09/2025 Progress Notes Patient: Kyrie LAWRENCE Provider: Madan Acosta MD :1955 A ge:69 Y S ex:Male Date:01/09/2025 Address:[address] [place], [place] [phone] Subjective: * Chief Complaints: * 6 MO [...] testing, THE ORDER HAS BEEN FAXED TO [facility] FOR SCHEDULING 3. F oot drop, [...] 01/09/2025 Generated for Navjot mccall/Janay/Tanoitting on: 1 12:43 PM EDT History and Physical Notes * [...]
--- OUTSIDE RECORDS SUMMARY | 2025-01-12 04:57 | XMS_ITS ---
Author Organization Blue Acosta MD Address [address] [place] [address] [place] [address] [phone] Care Team Providers Care Manager Transfer Name Role Phone Blue Acosta Primary Care Provider [phone] REASON FOR VISIT MRI order Encounters Encounter Location Date Provider Diagnosis Blue Acosta MD [address] [place] [address] [place] [address] [phone] 01/12/2025 Blue Acosta Plan Of Treatment Next Appt Details Provider Name:Blue garrido, 08/18/2025 09:00:00 AM, [address] [place] [address], [address], [phone], Provider Name:Blue garrido, 01/18/2026 07:30:00 AM, [address] [place] [address], [address], [phone], Provider Name:Blue garrido, 01/25/2026 09:00:00 AM, [address] [place] [address], [address], [phone], Provider Name:Blue garrido, 07/12/2026 07:00:00 AM, [address] [place] [address], [phone], Provider Name:Blue garrido, 07/19/2026 08:30:00 AM, [address] [place] [address], [phone], Progress Notes * Mahin AMBROCIO GDOB:[birth year] (69 yo M)Acc No.[id number]:01/12/2025 Patient: Mahin LAWRENCE :1955 A ge:69 Y S ex:Male Address:[address] [place] [phone] * true * Date: Generated for Navjot mccall/Janay/Tanoitting on: 12:46 PM EDT
--- OUTSIDE RECORDS SUMMARY | 2025-01-13 10:52 | XMS_ITS ---
Author Organization Blue Acosta MD Address [address] [place] [address] [place] [phone] Care Team Providers Care System Support Administrator Name Role Phone Blue Acosta Primary Care Provider REASON FOR VISIT Repeat CXR Encounters Encounter Location Date Provider Diagnosis Blue Acosta MD [address] [place] [phone] 01/13/2025 Blue Acosta Pleural effusion J90 Assessments [...] Details Provider Name:Blue garrido, 08/18/2025 09:00:00 AM, [address] [place] [address], [address], [phone], Provider Name:Blue garrido, 01/18/2026 07:30:00 AM, [address] [place] [address], [address], [phone], Provider Name:Blue garrido, 01/25/2026 09:00:00 AM, [address] [place] [address], [address], [phone], Provider Name:Blue garrido, 07/12/2026 07:00:00 AM, [address], [place], [place], [phone], Provider Name:Blue Arechiga ier, 07/19/2026 08:30:00 AM, [address], [address], [place], [place], [phone], Progress Notes * Mahin AMBROCIO GDOB:[birth year] (69 yo M)Acc No.[id number]:01/13/2025 Patient: Yanick COLEMANMahin MORLEY :1955 A ge:69 Y S ex:Male Address:[address] [place] [address] Subjective: * Chief Complaints: * R epeat CXR * Medical History: * Surgical History: * Hospitalization/Major Diagno stic Procedure: * Medications: Objective: * Vitals: * Physical Examination: Assessment: * Assessment: 1. P leural effusion - J90 Plan: * Treatment: * Procedure Codes: * true * Date: Generated for Navjot mccall/Janay/eTransmitting on: 12:44 PM EDT
--- OUTSIDE RECORDS SUMMARY | 2025-03-20 05:30 | XMS_ITS ---
Author Organization [facility] Address [address] [place] [phone] Care Team Providers Care Dynamometer Mechanic Name Role Phone Blue Acosta MD Primary Care Provider Corby Michel [phone] REASON FOR VISIT screening Encounters Encounter Location Date Provider Diagnosis [facility] [place] [address] [place] [id number] 03/20/2025 Corby Sanchez Plan Of Treatment No Information Progress Notes * JORGE KYRIE GDOB:[birth year] (69 yo M)Acc No.[id number]:03/20/2025 COLON WITH MAC Patient: KYRIE LAWRENCE Provider: Del Sanchez MD :1955 A ge:69 Y S ex:Male Date:03/20/2025 Address:[address] [place], [place] [phone] Pcp:Blue Acosta MD Subjective: * Chief Complaints: [...] 0 03/20/2025 Generated for Printi ng/Faxing/eTransmitting on: 1 12:45 PM EDT
--- OUTSIDE RECORDS SUMMARY | 2025-03-30 09:10 | XMS_ITS ---
Author Organization [facility] Address [address] [place] [phone] Care Team Providers Care Plumbing Hardware Assembler Name Role Phone Blue Acosta MD Primary Care Provider Corby Michel [phone] Encounters Encounter Location Date Provider Diagnosis [facility] [place] [address] [place] [id number] 03/30/2025 Corby Sanchez Colon cancer scree ascencion [...] KYRIE JORGE GDOB:[birth year] (69 yo M)Acc No.[id number]:03/30/2025 COLON WITH MAC Patient: Yanick COLEMANPEYMAN KYRIE G Provider: Del Sanchez MD :1955 A ge:69 Y S ex:Male Date:03/30/2025 Address:[address] [place], [place] [phone] Pcp:Blue Acosta MD Subjective: * Chief Complaints: [...] MD Date: 0 03/30/2025 Generated for Navjot mccall/Janay/Jasielransmitting on: 1 12:45 PM EDT
--- OUTSIDE RECORDS SUMMARY | 2025-07-10 03:00 | XMS_ITS ---
Author Organization Blue Acosta MD Address [address] [place], [place] [phone] Care Team Providers Care Early Head Start Teacher Name Role Phone Blue Acosta Primary Care Provider [phone] Results Component Value Reference Range Notes Complete Blood Count Auto Di ff Reviewed date:07/10/2025 12:29:22 PM Interpretation: Performing Lab:[facility], [address] [place] [phone] Notes/Report: White Blood Count 10.2 4.8-10.8 X10*3/uL [...] Panel Reviewed date:07/10/2025 12:29:39 PM Interpretation: Performing Lab:[address] [phone] Notes/Report: Triglycerides 98 <150 mg/dL Desirable Triglyceride: [...] (Free>4and<10) Reviewed date:07/10/2025 12:29:01 PM Interpretation: Performing Lab:[facility], [address] [place] [phone] Notes/Report: PSA,Total (Free>4and<10) 0.26 0.00-4.00 ng/mL A [...] A1c Reviewed date:07/10/2025 12:28:51 PM Interpretation: Performing Lab:[facility], [address] [place] [phone] Notes/Report: Hemoglobin A1c % 6.1 <6.0 % [...] average glucose, using the formula of the P4G-Zkwgbfp Average Glucose study (ADAG), Diabetes Care, Vol.31,#8, May. 2007 REASON FOR VISIT FASTING LABS Immunizations Vaccine Route Administration Date Status Comme nts Influenza High Dose IM Intramuscular 07/10/2025 Administer ed Encounters Encounter Location Date Provider Diagnosis Blue Acosta MD [address] [place], [place] [phone] 07/10/2025 Blue Acosta Mixed hyperlipidemia E78.2 ; [...] Pending Test Test Name Order Date Comprehensive [place]. Panel Fast 5 Microalbumin, Random 07/10/2025 UA ClnCatch+Micro w/rflx Cult 07/10/2025 Next Appt Details Provider Name:Blue garrido, 08/18/2025 09:00:00 AM, [address], [address], [place], [place], [phone], Provider Name:Blue Arechiga ier, 01/18/2026 07:30:00 AM, [address], [address], [place], [phone], Provider Name:Blue Arechiga ier, 01/25/2026 09:00:00 AM, [address], [address], [place], [phone], Provider Name:Blue Arechiga ier, 07/12/2026 07:00:00 AM, [address], [address], [place], [phone], Provider Name:Blue Arechiga ier, 07/19/2026 08:30:00 AM, [address], [address], [place], [phone], Progress Notes * Mahin AMBROCIO GDOB:[birth year] (69 yo M)Acc No.[id number]:07/10/2025 Progress Note Patient: Mahin LAWRENCE Provider: Madan Acosta MD :1955 A ge:69 Y S ex:Male Date:07/10/2025 Address:[address] [place], [place] [phone] Subjective: * Chief Complaints: * 1 . FASTING LABS. * Medical History: Objective: * Vitals: Assessment: * Assessment: 1. E ncounter for administration of vaccine - Z23 (Primary) 2 . M ixed hyperlipidemia - E78.2 3 . E ssential hypertension - I10 4 . P rediabetes - R73.09 Plan: * Treatment: 2. E ssential hypertension L AB: Comprehensive [place]. Panel Fast L AB: Microalbumin, Random L [...] AM) 3. P rediabetes L AB: Comprehensive [place]. Panel Fast L AB: Microalbumin, Random L [...] * Procedure Codes: 3 6415 VENIPUNCT, ROUTINE*, 00230 FLU VACC PRSV FREE INC ANTIG, G0008 [...] 07/10/2025 Generated for Navjot mccall/Janay/Tanoitting on: 1 12:44 PM EDT
--- OUTSIDE RECORDS SUMMARY | 2025-07-16 04:00 | XMS_ITS ---
Author Organization Blue Acosta MD Address [address] [place], [place] [phone] Care Team Providers Care Thermal Surfacing Machine Operator Name Role Phone Blue Acosta Primary Care Provider [phone] Allergies Allergen (clinical drug ingredient) Drug/Non Drug Allergy documented on EMR Reaction Allergy Type Onset Date Status zolpidem ambien (uncoded) hallucinations Allergy Active amoxil (uncoded) rash Allergy Act dick Results Component Value Reference Range Notes Microalbumin, Random Reviewed date:07/16/2025 12:43:31 PM Interpretation: Performing Lab:[facility], [address] [place] [phone] Notes/Report: Creatinine Urine 91.72 Microalbumin Urine 8.0 Microalbum/Creatinine Ratio Ur 8.7 <30 ug/mg cr Albumin/Creatinine Ratio Reference Ranges: Normal: < 30 ug/mg creatinine Microalbuminuria: 30 - 300 ug/mg creatinine Clinical Albuminuria: > 300 ug/mg creatinine UA ClnCatch+Micro w/rflx Cul t Reviewed date:07/16/2025 12:43:48 PM Interpretation: Performing Lab:[facility], [address] [place] [phone] Notes/Report: Urine, Clean Catch Color Urine Yellow Appearance Urine Clear PH 6.5 5.0-9.0 Glucose Urine UA Negative Negative mg/dL Urine Blood Negative Negative Specific [place] - Urine 1.015 1.005-1.025 Urine Protein Negative [...] Status W/U Status Risk Notes Problem Sinusitis (72673406) Sinusitis (J32.9) Active confirmed Vital Signs Blood pressure systolic 162 mm Hg 07/16/20 25 Blood pressure diastolic 80 mm Hg 025 Height 73 in 07/16/2025 Weight 344 lbs 07/16/2025 BMI 45.38 kg/m2 07/16/2025 weight is up 6 pounds since 01-09-25 Encounters Encounter Location Date Provider Diagnosis Blue Acosta MD [address] [place] [address] [place] [phone] 07/16/2025 Blue Acosta Prediabetes R73.09 ; Essential [...] Provider Name:Blue Arechiga ier, 08/18/2025 09:00:00 AM, [address] [place] [address], [address] [place] [address], [phone], Provider Name:Blue Arechiga ier, 01/18/2026 07:30:00 AM, [address] [place] [address], [address], [phone], Provider Name:Blue reyr, 01/25/2026 09:00:00 AM, [address] [place] [address], [address], [phone], Provider Name:Blue Arechiga ier, 07/12/2026 07:00:00 AM, [address] [place] [address], [address], [phone], Provider Name:Blue Arechiga ier, 07/19/2026 08:30:00 AM, [address] [place] [address], [address], [phone], Progress Notes * Mahin AMBROCIO GDOB:[birth year] (69 yo M)Acc No.[id number]:07/16/2025 Patient: Yanick COLEMANMahin MORLEY Provider: Madan Acosta MD :1955 A ge:69 Y S ex:Male Date:07/16/2025 Address:[address] [place], [place] [phone] Subjective: * Chief Complaints: * R eview [...] MD Date: Generated for Navjot mccall/Janay/Tanoitting on: 12:46 PM EDT History and Physical Notes * [...]
--- OUTSIDE RECORDS SUMMARY | 2025-08-04 09:25 | XMS_ITS ---
Author Organization Blue Acosta MD Address [address] [place] [address] [place] [address] [phone] Care Team Providers Care Tax Processor Name Role Phone Blue Acosta Primary Care Provider REASON FOR VISIT ER Encounters Encounter Location Date Provider Diagnosis Blue Acosta MD [address] [place] [address] [place] [address] [phone] 08/04/2025 Blue Acosta Plan Of Treatment Next Appt Details Provider Name:Blue garrido, 08/18/2025 09:00:00 AM, [address] [place] [address], [address], [phone], Provider Name:Blue garrido, 01/18/2026 07:30:00 AM, [address] [place] [address], [address], [phone], Provider Name:Blue garrido, 01/25/2026 09:00:00 AM, [address] [place] [address], [address], [phone], Provider Name:Blue garrido, 07/12/2026 07:00:00 AM, [address] [place] [address], [address], [phone], Provider Name:Blue garrido, 07/19/2026 08:30:00 AM, [address] [place] [address], [phone], Progress Notes * Mahin AMBROCIO GDOB:[birth year] (69 yo M)Acc No.[id number]:08/04/2025 Patient: Mahin LAWRENCE :1955 A ge:69 Y S ex:Male Address:[address] [place], [place] [address] * true * Date: Generated for Navjot mccall/Janay/Tanoitting on: 12:44 PM EDT
--- NOTE | 2025-08-12 10:20 | HM_ITS ---
* Total monitoring time 6 days. * Underlying rhythm is sinus with an average rate of 64/Min. * Rare ventricular ectopy. * No significant pauses or high-grade AV blocks. * Dizziness in patient diary associated with sinus rhythm. MTDD
--- OUTSIDE RECORDS SUMMARY | 2025-08-12 12:44 | XMS_ITS | Patient Health Record ---
Author Organization [facility] Address [address] [place] [address] Care Team Providers Care Rn Charge Name Role Phone Blue Acosta MD Primary Care Provider Corby Michel [phone] Allergies Allergen (clinical drug ingredient) Drug/Non Drug [...] Status Risk Notes Problem Irritable bowel syndrome (64833592) Irritable bowel syndrome (K58.9) Active confirmed Problem Screening for malignant neoplasm of colon (016293460) Encounter for screening for malignant neoplasm of colon (Z12.11) Active confirmed Problem History of adenomatous polyp of colon (913587696) History of adenomatous polyp of colon (Z86.010) Active confirmed Problem Constipation (64544422) Constipation (K59.00) Active confirmed Problem Abdominal bloating (599245308) Abdominal bloating (R14.0) Active confirmed Problem Preprocedural examination (104337584060433) Preprocedural examination (Z01.818) Active confirmed Problem Long-term current use of antiplatelet drug (114717516938103) Long-term use of aspirin therapy (Z79.82) Active confirmed Problem Chronic constipation (548639252) Constipation, chronic (K59.00) Active confirmed Problem Benign neoplasm of colon (16911506) Serrated adenoma of colon (D12.6) Active confirmed Problem Serrated polyp of colon (232174019) Serrated polyp of colon (K63.5) Active confirmed Vital Signs Blood pressure diastolic 11 mm Hg 12/11/2024 Height 74 in 12/11/2024 Blood pressure systolic 111 mm Hg 12/11/2024 Weight 337 lbs 12/11/2024 BMI 43.26 kg/m2 12/11/2024 Procedures Procedure Date Ordered Date Performed Result Body Sit e COLONOSCOPY 12/11/2024 N/A Encounters Encounter Location Date Provider Diagnosis [facility] [address] [place], [place] [id number] 03/30/2025 Corby Sanchez Colon cancer screeni ng Z12.11 ; Personal history of adenomatous and serrated colon polyps Z86.0101 ; Diverticulosis of large intestine without perforation or abscess without bleeding K57.30 and Other hemorrhoids K64.8 [facility] [address] [place] [address] 12/11/2024 Corby Sanchez History of adenomato us polyp of colon Z86.010 ; Abdominal bloating R14.0 ; Encounter for screening for malignant neoplasm of colon Z12.11 ; Preprocedural examination Z01.818 ; Long-term use of aspirin therapy Z79.82 ; Serrated polyp of colon K63.5 ; Serrated adenoma of colon D12.6 and Irritable bowel syndrome K58.9 [facility] [address] [place] [address] 12/11/2024 Corby Sanchez [facility] [address] [place] [address] 02/24/2025 Corby Sanchez [facility] [address] [place] [address] [place] [address] 03/26/2025 Corby Sanchez Assessments Encounter Date Diagnosis [...] advised him that he could try some jocw-cbe-gitvjal simethicone to help with the bloating and [...] advised him that he could try some wqxy-gyq-gnyjcjj simethicone to help with the bloating and [...] advised him that he could try some xslu-kxm-eybmhiz simethicone to help with the bloating and [...] advised him that he could try some ohnl-yfd-ojszhxt simethicone to help with the bloating and [...] advised him that he could try some ekax-vzc-dzhgtll simethicone to help with the bloating and [...] advised him that he could try some dkec-ixc-okdbeaz simethicone to help with the bloating and [...] advised him that he could try some qylo-zoe-krcsjxb simethicone to help with the bloating and [...] advised him that he could try some lhif-nkz-tmowpmr simethicone to help with the bloating and [...] End Date MEDICARE OF [place] [address] [place] [address] [id number] JORGEKYRIE CHEUNG Self - patient is the insured [employer]) [address] [place], [place] [address] [phone] [id number] KYRIE JORGE Self - patient is the insured Medical (General) History Medical History History ICD Code Colonoscopy 12/29/2005-negati ve for polyps; colonoscopy in 04/2012 with a tiny serrated adenoma of the cecum, diverticulosis, and internal hemorrhoids ERCP for choledocholithiasis in 06/2005 Duodenal ulcers in 2004 Denies LA,DM,CVA,Lung disease,renal dise ase HTN Sleep apnea--uses a [...]
--- OUTSIDE RECORDS SUMMARY | 2025-08-12 12:44 | XMS_ITS | Data Portability ---
Author Organization [facility], [facility] Address [address] [place] [address] Care Team Providers Care Legal Writing Professor Name Role Phone [facility] Primary Care Provider [phone] Assessment No assessment recorded. Plan of Treatment Reminders Order Date Submit Date Provider Last Modified By Organization Details Last Modified Time Details Appointments None recorded. Lab rapid SARS CoV 2 Ag, QL IA, respiratory specimen 2022 023 [email or web address] [facility], [address] [place] [address], [id number], 3 13:13:33 rapid strep group A, throat 2022 023 [email or web address] _[facility], [address] [place] [address], [id number], 3 13:13:33 Referral None recorded. Procedures None recorded. Surgeries None recorded. Imaging None recorded. Medication Orders fluticasone propionate 50 mcg/actuati on nasal spray,suspe nsion 2022 023 [id number], [address] [facility], [place], [address], 3 13:32:31 cetirizine 10 mg tablet 2022 023 [id number], [address] [place], [address], 3 13:32:39 Patient TargetsNo targets recorded. Patient InstructionsNo instructions recorded. Reason for Referral None Reported. Results Created Date Observation Date Name Description Value Unit Range Abnormal Flag Note LastModifiedBy Organization Detail LastModifiedTime 01/27/20 23 01/26/2023 rapid SARS CoV 2 Ag, QL IA, respi rator y speci men Unknown Analyte Normal =Negat dick Not Available [address] [place] [address], [id number], 01/26/2023 12:42:27 01/27/20 23 01/26/2023 rapid SARS CoV 2 Ag, QL IA, respi rator y speci men Unknown Analyte negati ve Not Available [address] [place] [address], [address], 01/26/2023 12:42:27 01/27/20 23 01/26/2023 rapid strep group A, throa t Unknown Analyte Normal = Negati ve Not Available [address] [place] [address], [address], 01/26/2023 12:47:49 01/27/2001/26/2023 rapid strep group A, throa t Unknown Analyte negati ve Not Available [address] [place] [address], [address], 01/26/2023 12:47:49 Result Notes None recorded. Problems Name Problem SNOMED Code Status Onset Date Resolution Date Notes Provider Name and Address Organization Details Recorded Time Atrial fibrillation 14398449 Active 2022 Kathy harmon, PA - [facility] 3 12:46:09 Hypertensive disorder 74343814 Active 2022 Kathy harmon, PA - [facility] 12:46:15 Problem Notes None recorded. Medical Equipment None Reported. Allergies Allergen ID Allergen Name Allergen Category Reaction Reaction Severity Criticality Documentation Date Start Date Code Code System Note Provider Name and Address Organization Details Recorded Time 241770 grass pollen environme nt,medica tion Not available Not available Not available 01/26/2023 Kathy harmon, PA - [facility] 3 12:44:21 605764 cat dander environme nt Not available Not available Not available 01/26/2023 Kathy harmon, PA - [facility] 3 12:44:25 532529 Canis lupus familiari s extract environme nt Not available Not available Not available 01/26/2023 21917 4 RxNorm Kathy harmon, PA - [facility] 3 12:44:28 194219 house dust allergeni c extract environme nt,medica tion Not available Not available Not available 01/26/2023 52081 9 RxNorm Kathy harmon, PA - [facility] 3 12:44:34 708082 mold extract environme nt Not available Not available Not available 01/26/2023 92515 8 [facility]Norm Kathy [facility], [facility] [...] propionate 50 mcg/actuati on nasal spray,suspe nsion [place] 1 spray every day by intranasa l [...] Updated DateTime 3 190.5 cm 40 kg/m2 174815. 56 g 6 18 /min 97 % 97 % 61 /min 98 [degF] 128/77 mm[Hg] Kathy Lucas [facility] 3 12:49:00 Social History Question Answer Notes LastModified by [employer] Details LastModified Time Tobacco Smoking Status Never Smoker [facility] Marcelo [facility] 01/26/2023 12:46:44 Have You Recently Traveled Abroad? No Information not available 01/26/2023 Sex: Unknown Functional Status Question Answer Note LastModified by [employer] Details LastModified Time Do you use any [...] ICD10 Code Diagnosis IMO Codes Diagnosis Note [id number] [facility] [address] [place] [address] 02/23/2022 08:42:28 02/23/2022 10:05:26 [id number] Addison Hall [place] [address] [place] [address] 01/26/2023 10:33:28 01/26/2023 13:38:31 Upper respiratory infection 53688944 J06.9 Viral infectionR ecommend plenty of fluidsTyle nol for pain/fever Humidifier Nasal saline sprayNo need for antibiotic may last up to 2 weeksCall or RTC if worsening cough, SOB, high fever, rash, n/v/d and unable to hydrate Allergic rhinitis 353354 04 J30.9 Sx and PE c/w allergic [...] ID Guarantor Name 01/26/2023 1 [place]ICARE [place]: [id number] Mahin Ha [id number] Mahin Ha 01/26/2023 2 [facility] [place] [employer] [place]INDEMNITY) [id number] Mahin Ha [id number] Mahin Ha Notes Date Note Type Note Provider Name and Address Organization Details Recorded Time 01/26/2023 text/html COVID-19 SymptomsReported by Patient CongestionReported by [email or web address] yo male c/o congestion and sore throat [...] Hall DO [address] [place], [address], [place] - [facility] 01/26/2023 13:33:08
--- OUTSIDE RECORDS SUMMARY | 2025-08-12 12:45 | XMS_ITS | Patient Health Record ---
Author Organization [facility] [place] Address [address] [place] [address] Care Team Providers Care Electric Detector Operator Name Role Phone Blue Acosta MD Primary Care Provider Milli Jimenez Unavailable [phone] Allergies Allergen (clinical drug ingredient) Drug/Non Drug [...] W/U Status Risk Notes Problem Tinea unguium (296191102) Tinea unguium (B35.1) Active confirmed Problem Acquired hammer toe of left foot (8900102053121036 ) Other hammer toe(s) (acquired), left foot (M20.42) Active confirmed Problem Localized, primary osteoarthritis of the ankle and/or foot (597001060) Arthritis of joint of lesser toe, left [...] X ray : Foot, left 3V 05/06/2024 [id number] NAIL, 1-5 08/17/2023 75560-[id number] NAIL, 1-5 03/31/2016 53994- Debride <25 sq cm 09/02/2013 90221- Debride <25 sq cm 08/17/2023 [id number] SKIN/TISSUE 07/07/2013 68047-[id number] SKIN/TISSUE 07/22/2013 45456-[id number] SKIN/TISSUE 08/12/2013 Insurance Providers Payer Name Payer Address Payer Phone Subscriber Number Group Number Insured Name Patient Relationship to Insured Coverage Start Date Coverage End Date Medicare National [employer] [address] [place] [address] [id number] Mahin Ha Self - patient is the insured [facility] [address] [place] [address] [id number] Mahin Ha Self - patient is [...]
--- OUTSIDE RECORDS SUMMARY | 2025-08-12 12:45 | XMS_ITS | Patient Health Record ---
Author Organization Blue Acosta MD Address [address] [place], [place] [id number] Care Team Providers Care Database Security Expert Name Role Phone Blue Acosta Primary Care Provider Allergies Allergen (clinical drug ingredient) Drug/Non Drug Allergy documented on EMR Reaction Allergy Type Onset Date Status zolpidem ambien (uncoded) hallucinations Allergy Active amoxil (uncoded) rash Allergy Act dick Results Component Value Reference Range Notes Liver Panel Reviewed date:01/02/2025 12:30:46 PM Interpretation: Performing Lab:[facility], [address] [place] [phone] Notes/Report: Bilirubin Total 0.6 0.0-1.0 mg/dL Bilirubin Direct 0.3 0.0-0.5 mg/dL Aspartate Amino Transferase 29 5-37 U/L Alanine Aminotransferase 22 0-40 U/L Total Protein 7.6 6.5-8.0 g/dL Albumin Level 3.9 3.5-5.0 g/dL Alkaline Phosphatase 80 39-117 U/L Glucose Fasting Reviewed date:01/02/2025 12:30:54 PM Interpretation: Performing Lab:[facility], [address] [place] [phone] Notes/Report: Glucose Fasting 118 60-99 mg/dL A fasting glucose from 100-125 mg/dl is considered impaired (pre-diabetes). Lipid Panel with Reflex Reviewed date:01/02/2025 12:31:05 PM Interpretation: Performing Lab:[facility], [address] [place] [phone] Notes/Report: Triglycerides 118 <150 mg/dL Desirable Triglyceride: [...] Reviewed date:01/03/2025 06:16:13 PM Interpretation: Performing Lab:[address] [phone] Notes/Report: Hemoglobin A1c % 5.6 <6.0 % [...] average glucose, using the formula of the G7M-Htzanik Average Glucose study (ADAG), Diabetes Care, Vol.31,#8, May. 2007 Complete Blood Count Auto Di ff Reviewed date:07/10/2025 12:29:22 PM Interpretation: Performing Lab:[facility], [address] [place] [phone] Notes/Report: White Blood Count 10.2 4.8-10.8 X10*3/uL [...] Panel Reviewed date:07/10/2025 12:29:39 PM Interpretation: Performing Lab:[facility], [address] [place] [phone] Notes/Report: Triglycerides 98 <150 mg/dL Desirable Triglyceride: [...] Reviewed date:07/10/2025 12:29:01 PM Interpretation: Performing Lab:[address] [phone] Notes/Report: PSA,Total (Free>4and<10) 0.26 0.00-4.00 ng/mL A [...] Reviewed date:07/10/2025 12:28:51 PM Interpretation: Performing Lab:[address] [address] Notes/Report: Hemoglobin A1c % 6.1 <6.0 % [...] average glucose, using the formula of the C4C-Jywytym Average Glucose study (ADAG), Diabetes Care, Vol.31,#8, May. 2007 Microalbumin, Random Reviewed date:07/16/2025 12:43:31 PM Interpretation: Performing Lab:[address] [address] Notes/Report: Creatinine Urine 91.72 Microalbumin Urine 8.0 Microalbum/Creatinine Ratio Ur 8.7 <30 ug/mg cr Albumin/Creatinine Ratio Reference Ranges: Normal: < 30 ug/mg creatinine Microalbuminuria: 30 - 300 ug/mg creatinine Clinical Albuminuria: > 300 ug/mg creatinine UA ClnCatch+Micro w/rflx Cul t Reviewed date:07/16/2025 12:43:48 PM Interpretation: Performing Lab:[facility], [address] [place] [phone] Notes/Report: Urine, Clean Catch Color Urine Yellow Appearance Urine Clear PH 6.5 5.0-9.0 Glucose Urine UA Negative Negative mg/dL Urine Blood Negative Negative Specific Kelliher - Urine 1.015 1.005-1.025 Urine Protein Negative Neg-Trace mg/dL Urine Ketones Negative Negative mg/dL Nitrite Urine Negative Negative Leukocyte Esterase Urine Negative Negative RBC Urine 0-2 0-2 /HPF WBC Urine 0-5 0-5 /HPF Squamous Epithelial Cell Urine 0-2 0-2 /HPF Bacteria Urine None Seen None Seen Hyaline Casts Urine 0-2 0-2 /LPF Hold Gold Reviewed date:01/02/2025 12:23:00 PM Interpretation: Performing Lab:[facility], [address] [place] [phone] Notes/Report: Johnie Milner See Note Specimen held untested for 24 hours; Call to request Chemistry testing. Complete Blood Count Auto Di ff Reviewed date:01/06/2025 08:02:47 PM Interpretation: Performing Lab:[facility], [address] [place] [phone] Notes/Report: White Blood Count 12.8 4.8-10.8 X10*3/uL [...] Panel Reviewed date:01/06/2025 08:04:15 PM Interpretation: Performing Lab:[facility], [address] [place] [phone] Notes/Report: Sodium 140 135-145 mmol/L Potassium 4.1 [...] Magnesium Reviewed date:01/06/2025 07:58:26 PM Interpretation: Performing Lab:[facility], [address] [place] [phone] Notes/Report: Magnesium 1.8 1.6-2.6 mg/dL Lipase Reviewed date:01/06/2025 07:58:34 PM Interpretation: Performing Lab:[facility], [address] [place] [phone] Notes/Report: Lipase 23 8-78 U/L CT NG by PCR Reviewed date:01/07/2025 02:59:49 PM Interpretation: Performing Lab:[facility], [address] [place] [phone] Notes/Report: Urine CT PCR NOT DETECTED Not [...] Cult Reviewed date:01/08/2025 04:41:34 PM Interpretation: Performing Lab:[facility], [address] [place] [phone] Notes/Report: Urine, Clean Catch Color Urine Yellow Appearance Urine Clear PH 5.5 5.0-9.0 Glucose Urine UA Negative Negative mg/dL Urine Blood Negative Negative Specific Kelliher - Urine 1.015 1.005-1.025 Urine Protein Negative Neg-Trace mg/dL Urine Ketones Negative Negative mg/dL Nitrite Urine Negative Negative Leukocyte Esterase Urine Negative Negative CT abdomen pelvis wo con Reviewed date:01/06/2025 08:03:52 PM Interpretation: Performing Lab: Notes/Report: [facility] [address] [place] [address] CT Scan Report Signed Patient: Mahin Ambrocio MR#: [id number] 045 : 1955 Acct:[id number] Age/Sex: 69 / M ADM Date: 01/06/25 Loc: .ED Attending Dr: Ordering Physician: Cristina Birmingham Date of Service: 01/06/25 Procedure(s): CT abdomen pelvis wo IV con Accession Number(s): [id number] cc: Blue Acosta MD; Cristina Birmingham Report Number: [id number]: Total DLP = 1401.00 mGy-cm EXAMINATION: CT [...] 01/06/25 1414 DD/ 1310 TD/TT: 01/06/25 1402 Packing Machine Feeder: [address] [address] [address] Scan Report Signed Patient: Ziyad Ambrocio in G MR#: [id number] 045 : 1955 Acct:[id number] Age/Sex: 69 / M ADM Date: 01/06/25 Loc: .ED Attending Dr: Ordering Physician: Cristina Birmingham Date of Service: 01/06/25 Procedure(s): CT abd omen pelvis wo IV con Accession Number(s): [id number] cc: Blue Acosta MD; Cristina Birmingham Report Number: [id number]: Total DLP = 1401.00 mGy-cm EXAMINATION: CT [...] 01/06/25 1414 DD/ 1310 TD/TT: 01/06/25 1402 Packing Machine Feeder: US scrotum Reviewed date:01/07/2025 03:00:25 PM Interpretation: Performing Lab: Notes/Report: [address] [address] Ultrasound Report Signed Patient: Mahin Ambrocio MR#: [id number] 045 : 1955 Acct:[id number] Age/Sex: 69 / M ADM Date: 01/06/25 Loc: HO.ED Attending Dr: Ordering Physician: Omid Lopez MD Date of Service: 01/06/25 Procedure(s): US scrotum Accession Number(s): [id number] cc: Blue Acosta MD; Omid Lopez MD CLINICAL HISTORY: L testicular pain. Ultrasound scrotum. COMPARISON: None Technique: Real time sonographic imaging, including color-flow imaging, was performed by the painter apprentice. Multiple agency service representative static images were saved for [...] OV> 01/07/25 0804 DD/ 15 TD/TT: 01/06/251815 Packing Machine Feeder: [place] [address] Ultrasound Report Signed Patient: Ziyad Ambrocio MR#: [id number] 045 : 1955 Acct:[id number] Age/Sex: 69 / M ADM Date: 01/06/25 Loc: .ED Attending Dr: Ordering Physician: Omid Lopez MD Date of Service: 01/06/25 Procedure(s): US scrotum Accession Number(s): [id number] cc: Blue Acosta MD; Omid Lopez MD CLINICAL HISTORY: L testicular pain. Ultrasound scrotum. COMPARISON: None Technique: Real time sonographic imaging, including color-flow imaging, was performed by the painter apprentice. Multiple agency service representative static images were saved for [...] OV> 01/07/25 0804 DD/ 15 TD/TT: 01/06/251815 Packing Machine Feeder: US scrotum doppler Reviewed date:01/06/2025 08:04:52 PM Interpretation: Performing Lab: Notes/Report: [address] [address] Ultrasound Report Signed Patient: Mahin Ambrocio MR#: [id number] 045 : 1955 Acct:[id number] Age/Sex: 69 / M ADM Date: 01/06/25 Loc: HO.ED Attending Dr: Ordering Physician: Louise Callejas Date of Service: 01/06/25 Procedure(s): US scrotum doppler Accession Number(s): [id number] cc: Blue Acosta MD; Louise Callejas CLINICAL HISTORY: L testicular pain. Ultrasound scrotum. COMPARISON: None Technique: Real time sonographic imaging, including color-flow imaging, was performed by the painter apprentice. Multiple agency service representative static images were saved for [...] in OV> 01/06/251815 DD/ 15 TD/TT: 01/06/251815 Packing Machine Feeder: [place] [address] Ultrasound Report Signed Patient: Ziyad Ambrocio MR#: [id number] 045 : 1955 Acct:[id number] Age/Sex: 69 / M ADM Date: 01/06/25 Loc: HO.ED Attending Dr: Ordering Physician: Louise Callejas Date of Service: 01/06/25 Procedure(s): US scr otum doppler Accession Number(s): [id number] cc: Blue Acosta MD; Louise Callejas CLINICAL HISTORY: L testicular pain. Ultrasound scrotum. COMPARISON: None Technique: Real time sonographic imaging, including color-flow imaging, was performed by the painter apprentice. Multiple agency service representative static images were saved for [...] in OV> 01/06/251815 DD/ 15 TD/TT: 01/06/251815 Packing Machine Feeder: XR chest 2V Reviewed date:01/13/2025 02:56:25 PM Interpretation: Performing Lab: Notes/Report: [address] [address] XRay Report Signed Patient: Mahin Ambrocio MR#: [id number] 045 : 1955 Acct:[id number] Age/Sex: 69 / M ADM Date: 01/09/25 Loc: HO.XRAY Attending Dr: Blue Acosta MD Ordering Physician: Blue Acosta MD Date of Service: 01/09/25 Procedure(s): XR chest 2V Accession Number(s): [id number] cc: Blue Acosta MD EXAMINATION: XR CHEST [...] 01/09/25 1059 DD/ 1000 TD/TT: 01/09/25 1010 Packing Machine Feeder: [address] [address] XRay Report Signed Patient: Ziyad Ambrocio MR#: [id number] 045 : 1955 Acct:[id number] Age/Sex: 69 / M ADM Date: 01/09/25 Loc: HO.XRAY Attending Dr: Blue Acosta MD Ordering Physician: Blue Acosta MD Date of Service: 01/09/25 Procedure(s): XR isaias st 2V Accession Number(s): [id number] cc: Blue Acosta MD EXAMINATION: XR CHEST [...] [place] MD Signed By: <Electronically signed by Ptee Lane MD in OV> 01/09/25 1059 DD/ 1000 TD/TT: 01/09/25 1010 Packing Machine Feeder: MR summers wo/w con Reviewed date:02/17/2025 04:48:05 PM Interpretation: Performing Lab: Notes/Report: [place] [address] Magnetic Resonance Report Signed Patient: Mahin Ambrocio MR#: [id number] 045 : 1955 Acct:[id number] Age/Sex: 69 / M ADM Date: 02/16/25 Loc: HO.MRI Attending Dr: Jamey Rojas MD Ordering Physician: Jamey Rojas MD Date of Service: 02/16/25 Procedure(s): MR abdomen wo/w con Accession Number(s): [id number] cc: Blue Acosta MD; Jamey Rojas MD CLINICAL HISTORY: N28.1 - Cyst of kidney, acquired MR abdomen with and without gadolinium Comparison: CT/[place]/SR - CT ABDOMEN PELVIS WO IV CON [...] OV> 02/17/25 1311 DD/ 130 TD/TT: 02/17/251308 Packing Machine Feeder: [place] [address] Magnetic Resonance Report Signed Patient: Ziyad Ambrocio MR#: [id number] 045 : 1955 Acct:[id number] Age/Sex: 69 / M ADM Date: 02/16/25 Loc: HO.MRI Attending Dr: Jamey Rojas MD Ordering Physician: Jamey Rojas MD Date of Service: 02/16/25 Procedure(s): MR abd omen wo/w con Accession Number(s): [id number] cc: Blue Acosta MD; Jamey Rojas MD CLINICAL HISTORY: N2 8.1 - Cyst of kidney, acquired MR abdomen with and without gadolinium Comparison: CT/[place]/SR - CT ABDOMEN PELVIS WO IV CON [...] OV> 02/17/25 131 DD/ 08 TD/TT: 02/17/251308 Packing Machine Feeder: XR lumbar spine 4V min Reviewed date:02/23/2025 12:34:44 PM Interpretation: Performing Lab: Notes/Report: [facility] [address] [place] [address] XRay Report Signed Patient: Mahin Ambrocio MR#: [id number] 045 : 1955 Acct:[id number] Age/Sex: 69 / M ADM Date: 02/20/25 Loc: HO.HOSX Attending Dr: Simon Solano MD, PhD Ordering Physician: Simon Solano MD, PhD Date of Service: 02/20/25 Procedure(s): XR lumbar spine 4V min Accession Number(s): [id number] cc: Blue Acosta MD; Simon Solano MD, PhD CLINICAL HISTORY: M43.16 - Spondylolisthesis, lumbar region 4 views lumbar spine Comparison: CT/[place]/SR - CT ABDOMEN PELVIS WO IV CON [...] in OV> 02/23/2523 DD/ 1 TD/TT: 02/23/25821 Packing Machine Feeder: [facility] [address] [place] [address] XRay Report Signed Patient: Ziyad Ambrocio MR#: [id number] 045 : 1955 Acct:[id number] Age/Sex: 69 / M ADM Date: 02/20/25 Loc: HO.HOSX Attending Dr: Richard Solano MD, PhD Ordering Physician: Simon Solano MD, PhD Date of Service: 02/20/25 Procedure(s): XR lum bar spine 4V min Accession Number(s): [id number] cc: Blue Acosta MD; Simon Solano MD, PhD CLINICAL HISTORY: M4 3.16 - Spondylolisthesis, lumbar region 4 views lumbar spine Comparison: CT/[place]/SR - CT ABDOMEN PELVIS WO IV CON [...] in OV> 02/23/25822 DD/ 1 TD/TT: 02/23/25821 Packing Machine Feeder: US bladder Reviewed date:05/28/2025 12:37:23 PM Interpretation: Performing Lab: Notes/Report: [facility] [address] [facility] [place] [address] Ultrasound Report Signed Patient: Mahin Ambrocio MR#: [id number] 045 : 1955 Acct:[id number] Age/Sex: 69 / M ADM Date: 05/28/25 Loc: HO.HMGCX Attending Dr: Don Aj MD Ordering Physician: Don Aj MD Date of Service: 05/28/25 Procedure(s): US bladder Accession Number(s): [id number] cc: Don Aj MD; Blue Acosta MD CLINICAL HISTORY: N32.0 - Bladder-neck obstruction US bladder with color Doppler Comparison: US/[facility] - US SCROTUM DOPPLER - 01/06/25 17:[address]/[place]/SR - CT ABDOMEN PELVIS WO IV CON [...] in OV> 05/28/25946 DD/ 5 TD/TT: 05/28/25945 Packing Machine Feeder: [facility] [address] [place] [address] [place] [address] Ultrasound Report Signed Patient: Ziyad Ambrocio G MR#: [id number] 045 : 1955 Acct:[id number] Age/Sex: 69 / M ADM Date: 05/28/25 [facility] Attending Dr: Joselin Bach MD Ordering Physician: Don Aj MD Date of Service: 05/28/25 Procedure(s): US bladder Accession Number(s): [id number] cc: Don Aj MD; Blue Acosta MD CLINICAL HISTORY: N3 2.0 - Bladder-neck obstruction US bladder with colo r Doppler Comparison: US/[facility] - US SCROTUM DOPPLER - 01/06/25 17:[address]/[place]/SR - CT ABDOME N PELVIS WO IV [...] in OV> 05/28/25946 DD/ 5 TD/TT: 05/28/25945 Packing Machine Feeder: Harshil Bates. Panel Reviewed date:07/10/2025 12:37:03 PM Interpretation: Performing Lab:[facility], [address] [place] [phone] Notes/Report: Sodium 142 135-145 mmol/L Potassium 4.2 [...] ff Reviewed date:08/02/2025 02:18:12 PM Interpretation: Performing Lab:[facility], [address] [place] [phone] Notes/Report: White Blood Count 7.9 4.8-10.8 X10*3/uL [...] INR Reviewed date:08/02/2025 02:16:34 PM Interpretation: Performing Lab:[address] [address] Notes/Report: Prothrombin Time 23.8 10.9-12.4 [employer] [...] Panel Reviewed date:08/02/2025 02:16:51 PM Interpretation: Performing Lab:[address] [address] Notes/Report: Sodium 140 135-145 mmol/L Potassium 4.6 [...] ff Reviewed date:08/06/2025 08:14:33 PM Interpretation: Performing Lab:[facility], [address] [place] [phone] Notes/Report: White Blood Count 8.9 4.8-10.8 X10*3/uL [...] INR Reviewed date:08/05/2025 05:37:52 PM Interpretation: Performing Lab:[facility], [address] [place] [phone] Notes/Report: Prothrombin Time 18.3 10.9-12.4 [employer] [...] Panel Reviewed date:08/05/2025 05:42:43 PM Interpretation: Performing Lab:[address] [address] Notes/Report: Sodium 141 135-145 mmol/L Potassium 4.2 [...] Administered pt was given the vaccine at [facility] on [facility]. Fluarix Quadrivalent IM Intramuscular 06/24/2018 Administe [...] Problem Status W/U Status Risk Notes Problem 374747183 Diverticulitis (K57.92) Active confirmed Problem Sinusitis (49482001) Sinusitis (J32.9) Active c onfirmed Problem 640634166 Mixed hyperlipidemia (E78.2) Active confirmed Problem 702253066 Paroxysmal atria l fibrillation (I48.0) Active confirmed Problem 12438531 Atherosclerosis of aorta (I70.0) Active confirmed Problem 93419671924039708 Acute recurren t frontal sinusitis (J01.11) Active confirmed Problem 493832537 Angina effort (I20.8) Active confirmed Problem 534833219 Lumbar disc disease (M51.9) Active confirmed Problem 868855680 Tubular adenoma of colon (D12.6) Active confirmed Problem 82947626 Essential hypertension (I10) Active confirmed Problem 5842405 Prediabetes (R73.09) Active confirmed Problem 909474180 Morbid obesity due to excess calories (E66.01) Active confirmed Problem 691727251 Cervical disc disease (M50.90) Active confirmed Problem 251055073 Hammertoe of lef t foot (M20.42) Active [...] Diagnosis Blue Acosta MD [address] [place] [id number] 01/02/2025 Blue Acosta Mixed hyperlipidemia E78.2 and Prediabetes R73.09 Blue Acosta MD [address] [place] [id number] 07/10/2025 Blue Acosta Mixed hyperlipidemia E78.2 ; Encounter for administration of vaccine Z23 ; Essential hypertension I10 and Prediabetes R73.09 Blue Acosta MD [address] [place] [id number] 01/09/2025 Blue Acosta Pleural effusion J90 ; Lumbar disc disease with radiculopathy M51.16 ; Foot drop, left M21.372 ; Prediabetes R73.09 and Mixed hyperlipidemia E78.2 Blue Acosta MD [address] [place] [address] Drive [address] [place] [id number] 07/16/2025 Blue Acosta Prediabetes R73.09 ; Essential hypertension I10 ; Sinusitis J32.9 ; Mixed hyperlipidemia E78.2 ; Paroxysmal atrial fibrillation I48.0 and Depression screening Z13.31 Blue Acosta MD [address] [place] [address] [id number] 01/08/2025 [address] [place] [address] [id number] 01/12/2025 Blue Acosta MD [address] [place] [address] [id number] 01/13/2025 Blue Acosta Pleural effusion J90 Blue Acosta MD [address] [id number] 08/04/2025 Blue Acosta Assessments Encounter Date Diagnosis [...] testing, THE ORDER HAS BEEN FAXED TO [facility] FOR SCHEDULING 07/16/2025 Prediabetes (ICD-10 - R73.09) [...] 2 VIEW PA & LAT 01/09/2025 Comprehensive [place]. Panel Fast 5 Microalbumin, Random 07/10/2025 XR chest 2V 01/13/2025 UA ClnCatch+Micro w/rflx Cult 07/10/2025 Future Test Test Name Order Date CT ABD & PELVIS WITH CONTRAST 2020 Next Appt Details Provider Name:Blue garrido, 08/18/2025 09:00:00 AM, [address] [place] [address], [address] [place] [address], [phone], Provider Name:Blue garrido, 01/18/2026 07:30:00 AM, [address] [place] [address], [address] [place] [address], [phone], Provider Name:Blue garrido, 01/25/2026 09:00:00 AM, [address] [place] [address], [address], [phone], Provider Name:Blue garrido, 07/12/2026 07:00:00 AM, [address] [place] [address], [address], [phone], Provider Name:Blue garrido, 07/19/2026 08:30:00 AM, [address] [place] [address], [address], [phone], Insurance Providers Payer Name Payer Address Payer Phone Subscriber Number Group Number Insured Name Patient Relationship to Insured Coverage Start Date Coverage End Date MEDICARE NHIC SOL [address] [place] [address] [id number] Mahin Ambrocio Self - patient is the insured [facility] [address] [place] [phone] [id number] Mahin Ambrocio Self - patient is the insured Medical (General) History Medical History History ICD Code colonoscopy 04/2012 for recta l bleeding due in 10 years; Colonoscopy done 10/27/[address] Sanchez - repeat 5 years. 03/30/25 colonoscopy - Daniel repeat 5y
== END ==
LOC: HO.CARD 10:17
PROVIDERS: PCP Internal Medicine; Visit Provider Internal Medicine Cardiovascular Disease
DX: I48.0 Paroxysmal atrial fibrillation (principal); R42 Dizziness and giddiness; R06.02 Shortness of breath
CPT/HCPCS: 93242

== ENCOUNTER → 2025-08-12 10:20 | Outpatient (BNV) | payer MEDICARE, OTHER, SELFPAY | PROVIDERS: PCP Internal Medicine; Visit Provider Internal Medicine | DX: I49.3 Ventricular premature depolarization (principal); R42 Dizziness and giddiness | CPT/HCPCS: 93244 ==

== ENCOUNTER 2025-08-17 10:37 | Outpatient (AMB) | payer MEDICARE, OTHER, SELFPAY ==
--- OUTSIDE RECORDS SUMMARY | 2024-04-09 10:15 | XMS_ITS ---
Author Organization [facility] Address [address] [place] [address] Care Team Providers Care Natural Gas Plant Supervisor Name Role Phone Blue Acosta MD Primary Care Provider Milli Jimenez Unavailable [phone] Camara Encounters Encounter Location Date Provider Diagnosis [facility] [address] [place] [address] 04/09/2024 Milli Yost Plan Of Treatment No Information Progress Notes * Mahin JORGE GDOB:[birth year] (69 yo M)Acc No.[id number]:04/09/2024 Progress Note Patient: Mahin LAWRENCE Provider: Harjit Yost DPM :1955 A ge:68 Y S ex:Male Date:04/09/2024 [id number] Pcp:Blue Acosta MD Subjective: * Chief Complaints: * [address] Camara[address] * Medical History: Objective: * Vitals: Assessment: Plan: * Treatment: * Images: * The named appointment provid er may or may not be the originator of this progress note, and it is not deemed complete until electronically signed by the appointment provider. Sign off status: Pending * Provider: Harjit Yost DPM Date: 0 04/09/2024 Generated for Navjot mccall/Janay/Kristy on: 1 10/17/2024 12:55 PM EST
--- OUTSIDE RECORDS SUMMARY | 2024-04-23 05:00 | XMS_ITS ---
Author Organization [facility] Address [address] [facility] [place] [address] Care Team Providers Care Fruit Dumper Name Role Phone Karla PAZ, Blue Primary Care Provider UnaMilli Barrett Unavailable [phone] Encounters Encounter Location Date Provider Diagnosis Surgery [facility] ([facility] [address] [place] [address] 04/23/2024 Milli Yost Plan Of Treatment No Information Progress Notes * Mahin JORGE GDOB:[birth year] (69 yo M)Acc No.[id number]:04/23/2024 Patient: Mahin LAWRENCE Provider: Harjit Yost DPM [...] 04/23/2024 Generated for Printi ng/Faxing/eTransmitting on: 1 10/17/2024 12:58 PM EST
--- OUTSIDE RECORDS SUMMARY | 2024-07-03 02:30 | XMS_ITS ---
Author Organization [facility] MD Address [address] [place], [place] [phone] Care Team Providers Care Cement Despatch Operator Name Role Phone Blue Acosta Primary Care Provider Results Component Value Reference Range Notes Complete Blood Count Auto Di ff Reviewed date:07/03/2024 05:03:13 PM Interpretation: Performing Lab:[facility], [address] [place] [phone] Notes/Report: White Blood Count 8.5 4.8-10.8 X10*3/uL Red Blood Count 4.56 4.60-5.80 X10*6/uL Hemoglobin 13.7 14.0-18.0 g/dl Hematocrit 42.1 42.0-52.0 % Mean Corpuscular Volume 92.3 80.0-98.0 fL Mean Corpuscular Hemoglobin 30.0 27.0-33.0 pg Mean Corpuscular HGB Conc 32.5 31.0-36.0 g/dl Red Cell Distribution Width 12.2 11.0-16.0 % Platelet Count 199 160-400 X10*3/uL Mean Platelet Volume 10.6 9.4-12.4 fL Neutrophils Percent Auto 52.0 45-73 % Imm Gran Pct Auto 0.2 0.0-0.4 % Lymphocytes Percent Auto 32.0 20-40 % Monocytes Percent Auto 11.9 2-11 % Eosinophils Percent Auto 3.1 0-4 % Basophils Percent Auto 0.8 0-2 % NRBC Pct Auto 0.0 0.0-0.2 /100WBC Neutrophils Absolute Auto 4.4 2.0-8.3 x10*3/u L Imm Gran Abs Auto 0.02 0.00-0.03 X10*3/uL Lymphocytes Absolute Auto 2.7 1.2-4.9 X10*3/u L Monocytes Absolute Auto 1.0 0.1-1.2 X10*3/uL Eosinophils Absolute Auto 0.3 0.0-0.4 X10*3/u L Basophils Absolute Auto 0.1 0.0-0.2 X10*3/uL NRBC Abs Auto 0.000 0.0-0.012 X10*3/uL Comprehensive Patrick. Panel Fa st Reviewed date:07/03/2024 12:20:41 PM Interpretation: Performing Lab:[facility], [address] [place] [phone] Notes/Report: Sodium 140 135-145 mmol/L Potassium 4.2 3.3-5.1 mmol/L Chloride 105 96-108 mmol/L Carbon Dioxide 28 22-29 mmol/L Anion Gap 11 12-20 Blood Urea Nitrogen 16 9-16 mg/dL Creatinine 0.91 0.5-1.4 mg/dL Estimated Glomerular Filt Rate > 60 NOTE: For -Scottish individuals, multiply the result by 1.210. Chronic Kidney Disease: Estimated GFR < 60 mL/min/1.73m2 Severe Kidney Disease: Estimated GFR < 15 mL/min/1.73m2 Glucose Fasting 110 60-99 mg/dL A fasting glucose from 100-125 mg/dl is considered impaired (pre-diabetes). Calcium 9.2 8.4-10.2 mg/dL Bilirubin Total 0.7 0.0-1.0 mg/dL Aspartate Amino Transferase 22 5-37 U/L Alanine Aminotransferase 20 0-40 U/L Total Protein 7.4 6.5-8.0 g/dL Albumin Level 3.9 3.5-5.0 g/dL Alkaline Phosphatase 80 39-117 U/L Lipid Panel Reviewed date:07/03/2024 12:16:21 PM Interpretation: Performing Lab:[facility], [address] [place] [phone] Notes/Report: Triglycerides 103 <150 mg/dL Desirable Triglyceride: less than 150 mg/dL Borderline High Triglyceride 150-199 mg/dL High Triglyceride: 200-499 mg/dL Very High Triglyceride: greater than or equal to 5OO mg/dL Cholesterol 126 <200 mg/dL Desirable Cholesterol: less than 200 mg/dL Borderline High Cholesterol: 200-239 mg/dL High Cholesterol: greater than 239 mg/dL LDL Cholesterol Calculated 68 <100 mg/dL Desirable LDL: less than 100 mg/dL Near Optimal/Above Optimal LDL: 110-129 mg/dL Borderline High LDL: 130-159 mg/dL High LDL: 160-189 mg/dL Very High LDL: greater than or equal to 190 mg/dL HDL Cholesterol 38 >40 mg/dL Desirable HDL: greater than 40 mg/dL Note: This HDL assay may give artificially low results in patients with liver disease. PSA,Total (Free>4and<10) Reviewed date:07/03/2024 12:17:59 PM Interpretation: Performing Lab:[address] [phone] Notes/Report: PSA,Total (Free>4and<10) 0.31 0.00-4.00 ng/mL A Free PSA was not performed: The percentage of Free PSA can be used to enhance the differentiation of prostate cancer from benign prostatic disease in subjects whose PSA levels are between 4.0 and 10.0 ng/mL. For subjects whose PSA levels are below 4.0 or above 10.0 ng/mL, the risk of prostate cancer is determined on the basis of the PSA alone. Therefore the % Free PSA is recommended only for those subjects whose PSA levels are between 4.0 and 10.0 ng/mL. PSA methodology: Walton Alinity i Chemiluminescent Microparticle Immunoassay (CMIA) Microalbumin, Random Reviewed date:07/03/2024 12:30:42 PM Interpretation: Performing Lab:[facility], [address] [place] [phone] Notes/Report: Creatinine Urine 52.54 Microalbumin Urine < 5.0 Microalbum/Creatinine Ratio Ur TNP <30 ug/mg cr Unable to calculate albumin/creatinine ratio due to low microalbumin or creatinine result. Hemoglobin A1c Reviewed date:07/03/2024 12:16:31 PM Interpretation: Performing Lab:[address] [phone] Notes/Report: Hemoglobin A1c % 5.6 <6.0 % Hemoglobin A1C Reference Range Adults: 4.8 - 6.0 % Non diabetic: < 6.0 % Goal: < 7.0 % Additional Action Suggested: > 8.0 % Note: Hemoglobin A1c results are invalid for patients with abnormal amounts of HbF. Blood transfusions may impact the HbA1c concentration in the patient sample. Estimated Average Glucose 114 eAG = Estimated average glucose which is %A1C expressed as average glucose, using the formula of the I7G-Zubdgxp Average Glucose study (ADAG), Diabetes Care, Vol.31,#8, May. 2007 UA ClnCatch+Micro w/rflx Cul t Reviewed date:07/03/2024 12:27:43 PM Interpretation: Performing Lab:[facility], [address] [place] [phone] Notes/Report: Urine, Clean Catch Color Urine Yellow Appearance Urine Clear PH 5.5 5.0-9.0 Glucose Urine UA Negative Negative mg/dL Urine Blood Negative Negative Specific [place] - Urine 1.010 1.005-1.025 Urine Protein Negative Neg-Trace mg/dL Urine Ketones Negative Negative mg/dL Nitrite Urine Negative Negative Leukocyte Esterase Urine Negative Negative RBC Urine 0-2 0-2 /HPF WBC Urine 0-5 0-5 /HPF Squamous Epithelial Cell Urine 0-2 0-2 /HPF Bacteria Urine None Seen None Seen Hyaline Casts Urine 0-2 0-2 /LPF REASON FOR VISIT FASTING LABS Immunizations Vaccine Route Administration Date Status Comme nts Fluarix Quadrivalent - 150 IM Intramuscular 07/03/2024 Adm inistered Encounters Encounter Location Date Provider Diagnosis Blue Acosta MD [address] [facility] [address] [place], [place] [phone] 07/03/2024 Blue Acosta Mixed hyperlipidemia E78.2 ; Encounter for immunization Z23 ; Essential hypertension I10 and Prediabetes R73.09 Assessments Encounter Date Diagnosis (ICD Code) Assessment Notes Treatment Notes Treatment Clinical Notes Section Notes 07/03/2024 Mixed hyperlipidemia (ICD-10 - E78.2) 07/03/2024 Encounter for immunization (ICD-10 - Z23) 07/03/2024 Essential hypertension (ICD-10 - I10) 07/03/2024 Prediabetes (ICD-10 - R73.09) Plan Of Treatment Next Appt Details Provider Name:Blue Arechiga ier, 08/18/2025 09:00:00 AM, [address], [address], [place], [place], [phone], Provider Name:Blue Arechiga ier, 01/18/2026 07:30:00 AM, [address], [address], [place], [phone], Provider Name:Blue Arechiga ier, 01/25/2026 09:00:00 AM, [address], [address], [place], [phone], Provider Name:Blue Arechiga ier, 07/12/2026 07:00:00 AM, [address], Suite [facility], [place], [phone], Provider Name:Blue Arechiga ier, 07/19/2026 08:30:00 AM, [address] [facility], Suite [facility], [place], [phone], Progress Notes * Mahin AMBROCIO GDOB:[birth year] (69 yo M)Acc No.[id number]:07/03/2024 Progress Note Patient: Mahin LAWRENCE Provider: Madan Acosta MD :1955 A ge:68 Y S ex:Male Date:07/03/2024 Address:[address] [place] [address] Subjective: * Chief Complaints: * 1 . FASTING LABS. * Medical History: Objective: * Vitals: Assessment: * Assessment: 1. E ncounter for immunization - Z23 (Primary) 2 . M ixed hyperlipidemia - E78.2 3 . E ssential hypertension - I10 4 . P rediabetes - R73.09 Plan: * Treatment: 2. E ssential hypertension L AB: Complete Blood Count Auto Diff (Collection Date & Time - 07/03/2024 07:30 AM) L AB: Comprehensive Patrick. Panel Fast (Collection Date & Time - 07/03/2024 07:30 AM) L AB: Lipid Panel (Collection Date & Time - 07/03/2024 07:30 AM) L AB: PSA,Total (Free>4and<10) (Collection Date & Time - 07/03/2024 07:30 AM) L AB: Microalbumin, Random (Collection Date & Time - 07/03/2024 07:30 AM) L AB: Hemoglobin A1c (Collection Date & Time - 07/03/2024 07:30 AM) L AB: UA ClnCatch+Micro w/rflx Cult (Collection Date & Time - 07/03/2024 07:30 AM) 3. P rediabetes L AB: Complete Blood Count Auto Diff (Collection Date & Time - 07/03/2024 07:30 AM) L AB: Comprehensive Patrick. Panel Fast (Collection Date & Time - 07/03/2024 07:30 AM) L AB: Lipid Panel (Collection Date & Time - 07/03/2024 07:30 AM) L AB: PSA,Total (Free>4and<10) (Collection Date & Time - 07/03/2024 07:30 AM) L AB: Microalbumin, Random (Collection Date & Time - 07/03/2024 07:30 AM) L AB: Hemoglobin A1c (Collection Date & Time - 07/03/2024 07:30 AM) L AB: UA ClnCatch+Micro w/rflx Cult (Collection Date & Time - 07/03/2024 07:30 AM) * Immunizations: Fluarix Quadrivalent - 150 : 0.5 mL (Dose No:1) (Route: Intramuscular) given by Sena Warner , Office Staff on Left Deltoid * Procedure Codes: 9 0686 FLU VAC NO PRSV 4 JOELLE 3 YRS+, G0008 ADMN FLU VAC NO FEE SCHED SAME DAY, [address] VENIPUNCT, ROUTINE* * * The named appointment provid er may or may not be the originator of this progress note, and it is not deemed complete until electronically signed by the appointment provider. Sign off status: Pending * Provider: Madan Acosta MD Date: 0 07/03/2024 Generated for Navjot mccall/Janay/Tanoitting on: 10/17/2024 12:58 PM EST
--- OUTSIDE RECORDS SUMMARY | 2024-07-10 06:00 | XMS_ITS ---
Author Organization Blue Acosta MD Address [address] [place], [place] [phone] Care Team Providers Care Clam Picker Name Role Phone Blue Acosta Primary Care Provider Allergies Allergen (clinical drug ingredient) Drug/Non Drug Allergy documented on EMR Reaction Allergy Type Onset Date Status zolpidem ambien (uncoded) hallucinations Allergy Active amoxil (uncoded) rash Allergy Act dick REASON FOR VISIT review labs Medications Medication SIG (Take, Route, Frequency, Duration) Notes Start Date End Date Status diazePAM 5 MG 1-2 tablet as needed Orally every 8 hours Not-Taking Mupirocin 2 % 1 application Externally Three times a day for 10 days 01/24/2021 Not-Taking Meclizine HCl 25 MG TAKE 1 TABLET BY DARIA TH EVERY DAY NEEDED for 30 Not-Taking Nitrostat 0.4 MG 1 tablet under the tongue and allow to dissolve as needed Sublingual every 15 min for pain. may repeat time 3 for 30 days 05/16/2012 Not-Taking ProAir HFA 108 (90 Base) MCG/ACT 2 puffs as needed Inhalation every 4 hrs for 30 days 11/20/2016 Not-Taking Gabapentin 300 MG 3 capsules qhs Orall y Once a day hs Active traMADol HCl 50 MG 1 tablet Orally Once a day Active Atorvastatin Calcium 20 MG TAKE 1 TABLET BY MOUTH EVERY DAY Active Celecoxib 200 MG TAKE 1 CAPSULE BY MO UTH EVERY DAY for 30 Active Triamcinolone Acetonide 0.5 % 1 application to affected area twice a day externally Externally Twice a day for 30 days Active Lisinopril 20 MG TAKE 1 TABLET BY DARIA TH EVERY DAY Active Flecainide Acetate 100 MG 1 tablet Orall y twice a day Active Xarelto 20 MG 1 tablet with food Orally Once a day Active Metoprolol Succinate ER 50 MG TAKE 1 TABLET BY MOUTH EVERY DAY Active Social History Tobacco Use: Social History Observation Description Date Details (start date - stop date) Never Smoker NA - NA Tobacco Use/Smoking Question Answer Notes Patient is a nonsmoker Additional Findings: Tobacco Non-User Cu rrent non-smoker, currently using no form of tobacco Alcohol Screen Question Answer Notes Did you have a drink containing alcohol in the p ast year? No Points 0 Interpretation Negative Vital Signs Blood pressure systolic 142 mm Hg 07/10/20 Blood pressure diastolic 86 mm Hg 024 Height 73 in 07/10/2024 Weight 344 lbs 07/10/2024 BMI 45.38 kg/m2 07/10/2024 weight is up 3 pounds since 04-08-24 Encounters Encounter Location Date Provider Diagnosis Blue Acosta MD [address] [place] [address] [place] [phone] 07/10/2024 Blue Acosta Essential hypertensi on I10 ; Prediabetes R73.09 ; Morbid obesity due to excess calories E66.01 ; Guaiac positive stools R19.5 ; Mixed hyperlipidemia E78.2 ; Colon cancer screening Z12.11 ; Depression screening Z13.31 and Paroxysmal atrial fibrillation I48.0 Assessments Encounter Date Diagnosis (ICD Code) Assessment Notes Treatment Notes Treatment Clinical Notes Section Notes 07/10/2024 Essential hypertension (ICD-10 - I10) stable, will contiue current regiment 07/10/2024 Prediabetes (ICD-10 - R73.09) is going to try dieting 07/10/2024 Morbid obesity due to excess calories (ICD-10 - E66.01) hopefully get on diet 07/10/2024 Guaiac positive stools (ICD-10 - R19.5) has been evaluated in past. because stools are always positive he has colonoscopy every 5 years 07/10/2024 Mixed hyperlipidemia (ICD-10 - E78.2) stable, will cntinue current regiment 07/10/2024 Colon cancer screening (ICD-10 - Z12.11) guaiac negative 07/10/2024 Depression screening (ICD-10 - Z13.31) negative 07/10/2024 Paroxysmal atrial fibrillation (ICD-10 - I48.0) Plan Of Treatment Medication Medication Name Sig Start Date Stop Date Notes Atorvastatin Calcium 20 MG TAKE 1 TABLET BY MOUTH EVERY DAY Lisinopril 20 MG TAKE 1 TABLET BY DARIA TH EVERY DAY Flecainide Acetate 100 MG 1 tablet Orally twice a day Xarelto 20 MG 1 tablet with food O rally Once a day Metoprolol Succinate ER 50 MG TAKE 1 TAB LET BY MOUTH EVERY DAY Treatment Notes Assessment Notes Essential hypertension stable, will cont iue current regiment Prediabetes is going to try diet ing Morbid obesity due to excess calories ho pefully get on diet Guaiac positive stools has been evaluate d in past. because stools are always positive he has colonoscopy every 5 years Mixed hyperlipidemia stable, will cntinu e current regiment Colon cancer screening guaiac negative Depression screening negative Next Appt Details Follow Up: 6 Months, Reason: Provider Name:Blue garrido, 08/18/2025 09:00:00 AM, [address] [place] [address], [address], [phone], Provider Name:Blue garrido, 01/18/2026 07:30:00 AM, [address] [place] [address], [address], [phone], Provider Name:Blue garrido, 01/25/2026 09:00:00 AM, [address] [place] [address], [address], [phone], Provider Name:Blue garrido, 07/12/2026 07:00:00 AM, [address] [place] [address], [address], [phone], Provider Name:Blue garrido, 07/19/2026 08:30:00 AM, [address] [place] [address], [address], [phone], Progress Notes * Mahin AMBROCIO GDOB:[birth year] (68 yo M)Acc No.[id number]:07/10/2024 Patient: Mahin Galdamez Provider: Madan Acosta MD :1955 A ge:68 Y S ex:Male Date:07/10/2024 Address:[address] [place], [place] [phone] Subjective: * Chief Complaints: * R eview labs * HPI: D epression Screening: PHQ-9 L ittle interest or pleasure in doing things N ot at all, F eeling down, depressed, or hopeless N ot at all, T rouble falling or staying asleep, or sleeping too much N ot at all, F eeling tired or having little energy N ot at all, P oor appetite or overeating N ot at all, F eeling bad about yourself or that you are a failure, or have let yourself or your family down N ot at all, T rouble concentrating on things, such as reading the newspaper or watching television N ot at all, M oving or speaking so slowly that other people could have noticed; or the opposite, being so fidgety or restless that you have been moving around a lot more than usual N ot at all, T houghts that you would be better off or of hurting yourself in some way N ot at all, T otal Score 0 . C ommunication Needs: Communication Needs D oes the patient have a hearing impairment N o, D oes the patient have a vision impairment? Y es, I f yes, what is the vision impairment? G lasses, D oes the patient have a cognition impairment? N o. F all Risk: History H ave you had any falls with injury in the past year? N o, H ave you had two or more falls in the past year? N o. S DARIUS Questions: SDOH Questions I n the past year have you been worried about losing housing? N o, I n the past year have you or any family members you live with been unable to get any of the following when it was really needed? Check all that apply: N one. S ymptom(s): patient is a 68 yo male here for review of recent labs and follow up of chronic issues. * ROS: G eneral/Constitutional: Patient denies c hills , fatigue , fever , headache. ? E NT: Patient denies d ecreased sense of smell , any loss of taste , sore throat. C ardiovascular: Patient denies c hest pain at rest chest pain with exertion. G astrointestinal: Patient denies a bdominal pain change in bowel habits constipation. G enitourinary: Patient denies d ifficulty urinating difficulty urinating.? M usculoskeletal: Patient denies m uscle aches. P eripheral Vascular: Patient denies r ed and blue toes. * Medical History: * Surgical History: * Hospitalization/Major Diagno stic Procedure: * Family History: F ather: alive 93 yrs, diagnosed with Diabetes. M other: 45 yrs. 2 brother(s) . 2 son(s) . . Mother in a fire., Denies mental health/substance abuse family history, No pertinent family medical history, No pertinent family medical history, Denies mental health/substance abuse family history, Denies mental health/substance abuse family history. * Social History: T obacco Use: T obacco Use/Smoking P atient is a n onsmoker, A dditional Findings: Tobacco Non-User C urrent non-smoker, currently using no form of tobacco. D rugs/Alcohol: A lcohol Screen D id you have a drink containing alcohol in the past year? N o, P oints 0 , I nterpretation N egative. M iscellaneous: n o Caffeine. Children: yes. no Community involvements. Exercise: yes, walks QD half an hour. Home smoke detector use: yes. Housing: renting. Living with: spouse. Marital status: . Occupation: retired. Pets: 1 cat. no Travel outside of the [facility], [facility]. * Medications: T akingGabapentin 300 MG Capsule 3 capsules qhs Orally Once a day hsFlecainide Acetate 100 MG Tablet 1 tablet Orally twice a dayMetoprolol Succinate ER 50 MG Tablet Extended Release 24 Hour TAKE 1 TABLET BY MOUTH EVERY DAY Xarelto 20 MG Tablet 1 tablet with food Orally Once a dayTriamcinolone Acetonide 0.5 % Cream 1 application to affected area twice a day externally Externally Twice a dayLisinopril 20 MG Tablet TAKE 1 TABLET BY MOUTH EVERY DAY Atorvastatin Calcium 20 MG Tablet TAKE 1 TABLET BY MOUTH EVERY DAY Celecoxib 200 MG Capsule TAKE 1 CAPSULE BY MOUTH EVERY DAY traMADol HCl 50 MG Tablet 1 tablet Orally Once a dayTaking Gabapentin 300 MG Capsule 3 capsules qhs Orally Once a day hsTaking Flecainide Acetate 100 MG Tablet 1 tablet Orally twice a dayTaking Metoprolol Succinate ER 50 MG Tablet Extended Release 24 Hour TAKE 1 TABLET BY MOUTH EVERY DAY Taking Xarelto 20 MG Tablet 1 tablet with food Orally Once a dayTaking Triamcinolone Acetonide 0.5 % Cream 1 application to affected area twice a day externally Externally Twice a dayTaking Lisinopril 20 MG Tablet TAKE 1 TABLET BY MOUTH EVERY DAY Taking Atorvastatin Calcium 20 MG Tablet TAKE 1 TABLET BY MOUTH EVERY DAY Taking Celecoxib 200 MG Capsule TAKE 1 CAPSULE BY MOUTH EVERY DAY Taking traMADol HCl 50 MG Tablet 1 tablet Orally Once a dayNot- Taking/PRNMeclizine HCl 25 MG Tablet TAKE 1 TABLET BY MOUTH EVERY DAY NEEDED Mupirocin 2 % Ointment 1 application Externally Three times a daydiazePAM 5 MG Tablet 1-2 tablet as needed Orally every 8 hoursProAir HFA 108 (90 Base) MCG/ACT Aerosol Solution 2 puffs as needed Inhalation every 4 hrsNitrostat 0.4 MG Tablet Sublingual 1 tablet under the tongue and allow to dissolve as needed Sublingual every 15 min for pain. may repeat time 3Medication List reviewed and reconciled with the patientNot-Taking/PRN Meclizine HCl 25 MG Tablet TAKE 1 TABLET BY MOUTH EVERY DAY NEEDED Not- Taking/PRN Mupirocin 2 % Ointment 1 application Externally Three times a dayNot-Taking/PRN diazePAM 5 MG Tablet 1-2 tablet as needed Orally every 8 hoursNot-Taking/PRN ProAir HFA 108 (90 Base) MCG/ACT Aerosol Solution 2 puffs as needed Inhalation every 4 hrsNot-Taking/PRN Nitrostat 0.4 MG Tablet Sublingual 1 tablet under the tongue and allow to dissolve as needed Sublingual every 15 min for pain. may repeat time 3Medication List reviewed and reconciled with the patient * Allergies: a moxil: rashambien: hallucinationsyes[Allergies Verified] Objective: * Vitals: H t: 73, Wt:344, BMI:45.38, BP:142/86, Repeat BP:145/78 weight is up 3 pounds since 04-08-24. * P ast Orders: L ab:Microalbumin, Random (Order Date - 07/03/2024) (Collection Date - 07/03/2024) Value Reference Range Creatinine Urine 52.54 - mg/dL Microalbumin Urine < 5.0 - mg/L Microalbum Creatinine Ratio Ur TNP <30 - ug/ mg cr L ab:Hemoglobin A1c (Order Date - 07/03/2024) (Collection Date - 07/03/2024) Value Reference Range Hemoglobin A1c % 5.6 <6.0 - % Estimated Average Glucose 114 - mg/dL L ab:Complete Blood Count Auto Diff (Order Date - 07/03/2024) (Collection Date - 07/03/2024) Value Reference Range White Blood Count 8.5 4.8-10.8 - X10*3/uL Red Blood Count 4.56 L 4.60-5.80 - X10*6/uL Hemoglobin 13.7 L 14.0-18.0 - g/dl Hematocrit 42.1 42.0-52.0 - % Mean Corpuscular Volume 92.3 80.0-98.0 - fL Mean Corpuscular Hemoglobin 30.0 27.0-33.0 - pg Mean Corpuscular HGB Conc 32.5 31.0-36.0 - g/ dl Red Cell Distribution Width 12.2 11.0-16.0 - % Platelet Count 199 160-400 - X10*3/uL Mean Platelet Volume 10.6 9.4-12.4 - fL Neutrophils Percent Auto 52.0 45-73 - % Imm Gran Pct Auto 0.2 0.0-0.4 - % Lymphocytes Percent Auto 32.0 20-40 - % Monocytes Percent Auto 11.9 H 2-11 - % Eosinophils Percent Auto 3.1 0-4 - % Basophils Percent Auto 0.8 0-2 - % NRBC Pct Auto 0.0 0.0-0.2 - /100WBC Neutrophils Absolute Auto 4.4 2.0-8.3 - x10* 3/uL Imm Gran Abs Auto 0.02 0.00-0.03 - X10*3/uL Lymphocytes Absolute Auto 2.7 1.2-4.9 - X10* 3/uL Monocytes Absolute Auto 1.0 0.1-1.2 - X10*3/ uL Eosinophils Absolute Auto 0.3 0.0-0.4 - X10* 3/uL Basophils Absolute Auto 0.1 0.0-0.2 - X10*3/ uL NRBC Abs Auto 0.000 0.0-0.012 - X10*3/uL L ab:UA ClnCatch+Micro w/rflx Cult (Order Date - 07/03/2024) (Collection Date - 07/03/2024) Value Reference Range Color Urine Yellow - Appearance Urine Clear - PH 5.5 5.0-9.0 - Glucose Urine UA Negative Negative - mg/dL Urine Blood Negative Negative - Specific [place] - Urine 1.010 1.005-1.025 - Urine Protein Negative Neg-Trace - mg/dL Urine Ketones Negative Negative - mg/dL Nitrite Urine Negative Negative - Leukocyte Esterase Urine Negative Negative - RBC Urine 0-2 0-2 - /HPF WBC Urine 0-5 0-5 - /HPF Squamous Epithelial Cell Urine 0-2 0-2 - /HP F Bacteria Urine None Seen None Seen - Hyaline Casts Urine 0-2 0-2 - /LPF L ab:Comprehensive [place]. Panel Fast (Order Date - 07/03/2024) (Collection Date - 07/03/2024) Value Reference Range Sodium 140 135-145 - mmol/L Bilirubin Total 0.7 0.0-1.0 - mg/dL Aspartate Amino Transferase 22 5-37 - U/L Alanine Aminotransferase 20 0-40 - U/L Total Protein 7.4 6.5-8.0 - g/dL Albumin Level 3.9 3.5-5.0 - g/dL Alkaline Phosphatase 80 39-117 - U/L Potassium 4.2 3.3-5.1 - mmol/L Chloride 105 96-108 - mmol/L Carbon Dioxide 28 22-29 - mmol/L Anion Gap 11 L 12-20 - Blood Urea Nitrogen 16 9-16 - mg/dL Creatinine 0.91 0.5-1.4 - mg/dL Estimated Glomerular Filt Rate > 60 - Glucose Fasting 110 H 60-99 - mg/dL Calcium 9.2 8.4-10.2 - mg/dL L ab:Lipid Panel (Order Date - 07/03/2024) (Collection Date - 07/03/2024) Value Reference Range Triglycerides 103 <150 - mg/dL Cholesterol 126 <200 - mg/dL LDL Cholesterol Calculated 68 <100 - mg/dL HDL Cholesterol 38 L >40 - mg/dL L ab:PSA,Total (Free>4and<10) (Order Date - 07/03/2024) (Collection Date - 07/03/2024) Value Reference Range PSA,Total (Free>4and<10) 0.31 0.00-4.00 - ng/ mL * Examination: G eneral Examination: GENERAL APPEARANCE: alert, well hydrated, in no distress , male. HEAD: normocephalic. EYES: BOTH EYES, normal. EARS: BOTH EARS, normal. THROAT: no erythema, no exudate, pharynx normal. NECK/THYROID: no carotid bruit, no cervical lymphadenopathy. SKIN: good turgor. HEART: no murmurs, rubs, gallops, regular rate and rhythm. LUNGS: no wheezes, rales, rhonchi, good air movement, clear to auscultation bilaterally. ABDOMEN: soft, nontender, nondistended, no masses palpable. RECTAL EXAM: stool guaiac positive, prostate normal. MALE GENITOURINARY: circumcised, testes descended bilaterally, no testicular mass, prostate normal. Assessment: * Assessment: 1. E ssential hypertension - I10 (Primary) 2 . P rediabetes - R73.09 3 . M orbid obesity due to excess calories - E66.01 4 . G uaiac positive stools - R19.5 5 . M ixed hyperlipidemia - E78.2 6 . C olon cancer screening - Z12.11 7 . D epression screening - Z13.31 8 . P aroxysmal atrial fibrillation - I48.0 Plan: * Treatment: 2. P rediabetes Notes: is going to try dieting 3. M orbid obesity due to excess calories Notes: hopefully get on diet 4. G uaiac positive stools Notes: has been evaluated in past. because stools are always positive he has colonoscopy every 5 years 5. M ixed hyperlipidemia Continue Atorvastatin Calcium Tablet, 20 MG, TAKE 1 TABLET BY MOUTH EVERY DAY. Notes: stable, will cntinue current regiment 6. C olon cancer screening Notes: guaiac negative 7. D epression screening Notes: negative 8. P aroxysmal atrial fibrillation Continue Xarelto Tablet, 20 MG, 1 tablet with food, Orally, Once a day; C ontinue Flecainide Acetate Tablet, 100 MG, 1 tablet, Orally, twice a day. * Procedure Codes: * Preventive Medicine: Counseling: C are goal follow-up plan: C sushmaeling for abnormal BMI provided?Yes, Bradly trejo Normal BMI Follow-up Madan demarco encouragement to exercise. * Follow Up: 6 Months * * Sign off status: Completed true * Provider: Madan Acosta MD Date: 0 07/10/2024 Generated for Navjot mccall/Janay/Dietersmitting on: 1 10/17/2024 12:55 PM EST History and Physical Notes * HPI (History of Present Illness) Category Sub-Category Detail Notes Category Not es Symptom(s) patient is a 68 yo male here for review of recent labs and follow up of chronic issues. Depression Screening PHQ-9 Little inte rest or pleasure in doing things: Not at all Feeling down, depressed, or hopeless: No t at all Trouble falling or staying asleep, or sl eeping too much: Not at all Feeling tired or having little energy: N ot at all Poor appetite or overeating: Not at all Feeling bad about yourself o r that you are a failure, or have let yourself or your family down: Not at all Trouble concentrating on thi ngs, such as reading the newspaper or watching television: Not at all Moving or speaking so slowly that other people could have noticed; or the opposite, being so fidgety or restless that you have been moving around a lot more than usual: Not at all Thoughts that you would be b jonathan off or of hurting yourself in some way: Not at all Total Score: 0 SDOH Questions SDOH Questions In the past year have you been worried about losing housing?: No In the past year have you or any family members you live with been unable to get any of the following when it was really needed? Check all that apply:: None Fall Risk History Have you had any falls with injury i n the past year?: No Have you had two or more falls in the st year?: No Communication Needs Communication Needs Does the patient have a hearing impairment: No Does the patient have a vision impairmen t?: Yes If yes, what is the vision impairment?: Glasses Does the patient have a cognition impair ment?: No Examination Category Sub-Category Detail Notes Category Not es General Examination GENERAL APPEARANCE: alert, w ell hydrated, in no distress , male HEAD: normocephalic EYES: BOTH EYES, normal EARS: BOTH EARS, normal THROAT: no erythema, no exud ate, pharynx normal NECK/THYROID: no carotid bruit, no cervical lymphadenopathy HEART: no murmurs, rubs, ga llops, regular rate and rhythm LUNGS: no wheezes, rales, r honchi, good air movement, clear to auscultation bilaterally ABDOMEN: soft, nontender, non distended, no masses palpable SKIN: good turgor MALE GENITOURINARY: circumcised, testes descended bilaterally, no testicular mass, prostate normal RECTAL EXAM: stool guaiac positiv e, prostate normal
--- OUTSIDE RECORDS SUMMARY | 2025-01-02 03:00 | XMS_ITS ---
Author Organization Blue Acosta MD Address [address] [place], [place] [phone] Care Team Providers Care Yard Stocker Name Role Phone Blue Acosta Primary Care Provider Results Component Value Reference Range Notes Liver Panel Reviewed date:01/02/2025 12:30:46 PM Interpretation: Performing Lab:[address] [phone] Notes/Report: Bilirubin Total 0.6 0.0-1.0 mg/dL Bilirubin Direct 0.3 0.0-0.5 mg/dL Aspartate Amino Transferase 29 5-37 U/L Alanine Aminotransferase 22 0-40 U/L Total Protein 7.6 6.5-8.0 g/dL Albumin Level 3.9 3.5-5.0 g/dL Alkaline Phosphatase 80 39-117 U/L Glucose Fasting Reviewed date:01/02/2025 12:30:54 PM Interpretation: Performing Lab:[address] [address] Notes/Report: Glucose Fasting 118 60-99 mg/dL A fasting glucose from 100-125 mg/dl is considered impaired (pre-diabetes). Lipid Panel with Reflex Reviewed date:01/02/2025 12:31:05 PM Interpretation: Performing Lab:[address] [address] Notes/Report: Triglycerides 118 <150 mg/dL Desirable Triglyceride: [...] A1c Reviewed date:01/03/2025 06:16:13 PM Interpretation: Performing Lab:[facility], [address] [place] [phone] Notes/Report: Hemoglobin A1c % 5.6 <6.0 % [...] average glucose, using the formula of the W5X-Atawwww Average Glucose study (ADAG), Diabetes Care, Vol.31,#8, May. 2007 REASON FOR VISIT FASTING LIPIDS Encounters Encounter Location Date Provider Diagnosis Blue Acosta MD [address] [place] [address] [place] [phone] 01/02/2025 Blue Acosta Mixed hyperlipidemia E78.2 and Prediabetes R73.09 Assessments Encounter Date Diagnosis (ICD Code) Assessment Notes Treatment Notes Treatment Clinical Notes Section Notes 01/02/2025 Mixed hyperlipidemia (ICD-10 - E78.2) 01/02/2025 Prediabetes (ICD-10 - R73.09) Plan Of Treatment Next Appt Details Provider Name:Blue garrido, 08/18/2025 09:00:00 AM, [address] [place] [address], Suite [facility], [place], [place], [phone], Provider Name:Blue garrido, 01/18/2026 07:30:00 AM, [address], [address], [place], [phone], Provider Name:Blue Arechiga ier, 01/25/2026 09:00:00 AM, [address] [facility] [address], [address], [place], [phone], Provider Name:Blue Arechiga ier, 07/12/2026 07:00:00 AM, [facility], [address], [place], [place], [phone], Provider Name:Blue Arechiga ier, 07/19/2026 08:30:00 AM, [address] [facility] [address], [address], [place], [place], [phone], Progress Notes * Mahin AMBROCIO GDOB:[birth year] (69 yo M)Acc No.[id number]:01/02/2025 Progress Note Patient: Mahin LAWRENCE Provider: Madan Acosta MD :1955 A ge:69 Y S ex:Male Date:01/02/2025 Address:[address] [place], [place] [phone] Subjective: * Chief Complaints: * 1 . [...] 01/02/2025 Generated for Navjot mccall/Janay/Kristy on: 1 10/17/2024 12:55 PM EST
--- OUTSIDE RECORDS SUMMARY | 2025-01-08 15:26 | XMS_ITS ---
Author Organization Blue Acosta MD Address [address] [place] [address] [place] [address] [phone] Care Team Providers Care Clinical Safety Specialist Name Role Phone Blue Acosta Primary Care Provider REASON FOR VISIT ER Encounters Encounter Location Date Provider Diagnosis Blue Acosta MD [address] [place] [address] [place] [address] [phone] 01/08/2025 Blue Acosta Plan Of Treatment Next Appt Details Provider Name:Blue garrido, 08/18/2025 09:00:00 AM, [address] [place] [address], [address], [phone], Provider Name:Blue garrido, 01/18/2026 07:30:00 AM, [address] [place] [address], [address], [phone], Provider Name:Blue garrido, 01/25/2026 09:00:00 AM, [address] [place] [address], [address], [phone], Provider Name:Blue garrido, 07/12/2026 07:00:00 AM, [address] [place] [address], [address], [phone], Provider Name:Blue garrido, 07/19/2026 08:30:00 AM, [address] [place] [address], [address], [phone], Progress Notes * Mahin AMBROCIO GDOB:[birth year] (69 yo M)Acc No.[id number]:01/08/2025 Patient: Mahin LAWRENCE :1955 A ge:69 Y S ex:Male Address:[address] [place], [place] [phone] * true * Date: Generated for Navjot mccall/Janay/Tanoitting on: 10/17/2024 12:56 PM EST
--- OUTSIDE RECORDS SUMMARY | 2025-01-09 04:15 | XMS_ITS ---
Author Organization Blue Acosta MD Address [address] [place], [place] [phone] Care Team Providers Care Wrist Liner Name Role Phone Blue Acosta Primary Care [...] kg/m2 01/09/2025 weight is down 6 pounds [facility] e 07-10-24 Encounters Encounter Location Date Provider Diagnosis Blue Acosta MD [address] [place] [address] [address] [place], [place] [phone] 01/09/2025 Blue Acosta Pleural effusion J90 ; [...] testing, THE ORDER HAS BEEN FAXED TO [facility] FOR SCHEDULING 01/09/2025 Foot drop, left (ICD-10 [...] testing, THE ORDER HAS BEEN FAXED TO [facility] FOR SCHEDULING Foot drop, left pending diagnostic t esting Prediabetes stable, no need for medication at this time, will contiue to monitor Mixed hyperlipidemia stable, will contin ue current regiment Pending Test Test Name Order Date MRI LUMBAR SPINE NO CONTRAST 01/09/2025 XR CHEST 2 VIEW PA & LAT 01/09/2025 Next Appt Details Provider Name:Blue Arechiga ier, 08/18/2025 09:00:00 AM, [address] [place] [address], [address] [place] [address], [phone], Provider Name:Blue Arechiga ier, 01/18/2026 07:30:00 AM, [address] [place] [address], [address] [place] [address], [phone], Provider Name:Blue Arechiga ier, 01/25/2026 09:00:00 AM, [address] [place] [address], [address], [phone], Provider Name:Blue Arechiga ier, 07/12/2026 07:00:00 AM, [address] [place] [address], [address] [place] [address], [phone], Provider Name:Blue Arechiga ier, 07/19/2026 08:30:00 AM, [address] [place] [address], [address] [place] [address], [phone], Progress Notes * Kyrie AMBROCIO GDOB:[birth year] (69 yo M)Acc No.[id number]:01/09/2025 Progress Notes Patient: Kyrie LAWRENCE Provider: Madan Acosta MD :1955 A ge:69 Y S ex:Male Date:01/09/2025 Address:[address] [place], [place] [phone] Subjective: * Chief Complaints: * 6 MO [...] testing, THE ORDER HAS BEEN FAXED TO [facility] FOR SCHEDULING 3. F oot drop, [...] 01/09/2025 Generated for Navjot mccall/Janay/Tanoitting on: 1 10/17/2024 12:55 PM EST History [...]
--- OUTSIDE RECORDS SUMMARY | 2025-01-12 03:57 | XMS_ITS ---
Author Organization Blue Acosta MD Address [address] [place] [address] [place] [phone] Care Team Providers Care Video Systems Engineer Name Role Phone Blue Acosta Primary Care Provider REASON FOR VISIT MRI order Encounters Encounter Location Date Provider Diagnosis Blue Acosta MD [address] [place] [address] [place] [phone] 01/12/2025 Blue Acosta Plan Of Treatment Next Appt Details Provider Name:Blue garrido, 08/18/2025 09:00:00 AM, [address] [place] [address], [address], [phone], Provider Name:Blue garrido, 01/18/2026 07:30:00 AM, [address] [place] [address], [address], [phone], Provider Name:Blue garrido, 01/25/2026 09:00:00 AM, [address] [place] [address], [address], [phone], Provider Name:Blue garrido, 07/12/2026 07:00:00 AM, [address] [place] [address], [phone], Provider Name:Blue garrido, 07/19/2026 08:30:00 AM, [address] [place] [address], [phone], Progress Notes * Mahin AMBROCIO GDOB:[birth year] (69 yo M)Acc No.[id number]:01/12/2025 Patient: Mahin LAWRENCE :1955 A ge:69 Y S ex:Male Address:[address] [place] [address] * true * Date: Generated for Navjot mccall/Janay/Tanoitting on: 10/17/2024 12:59 PM EST
--- OUTSIDE RECORDS SUMMARY | 2025-01-13 09:52 | XMS_ITS ---
Author Organization Blue Acosta MD Address [address] [place] [address] [place] [phone] Care Team Providers Care Medicaid Billing Clerk Name Role Phone Blue Acosta Primary Care Provider REASON FOR VISIT Repeat CXR Encounters Encounter Location Date Provider Diagnosis Blue Acosta MD [address] [place] [phone] 01/13/2025 Blue Acosta Pleural effusion J90 Assessments [...] 01/13/2025 Next Appt Details Provider Name:Blue garrido, 08/18/2025 09:00:00 AM, [address] [place] [address], [address], [phone], Provider Name:Blue garrido, 01/18/2026 07:30:00 AM, [address] [place] [address], [address], [phone], Provider Name:Blue garrido, 01/25/2026 09:00:00 AM, [address] [place] [address], [address], [phone], Provider Name:lBue garrido, 07/12/2026 07:00:00 AM, [address], [place], [place], [phone], Provider Name:Blue Arechiga ier, 07/19/2026 08:30:00 AM, [address], [address], [place], [place], [phone], Progress Notes * Mahin AMBROCIO GDOB:[birth year] (69 yo M)Acc No.[id number]:01/13/2025 Patient: Yanick COLEMANMahin MORLEY :1955 A ge:69 Y S ex:Male Address:[address] [place] [address] Subjective: * Chief Complaints: * R epeat CXR * Medical History: * Surgical History: * Hospitalization/Major Diagno stic Procedure: * Medications: Objective: * Vitals: * Physical Examination: Assessment: * Assessment: 1. P leural effusion - J90 Plan: * Treatment: * Procedure Codes: * true * Date: Generated for Navjot mccall/Janay/eTravismitting on: 10/17/2024 12:56 PM EST
--- OUTSIDE RECORDS SUMMARY | 2025-03-20 04:30 | XMS_ITS ---
Author Organization [facility] Address [address] [place] [address] Care Team Providers Care Sensitized Paper Tester Name Role Phone Blue Acosta MD Primary Care Provider Corby Michel [phone] REASON FOR VISIT screening Encounters Encounter Location Date Provider Diagnosis [facility] Out[facility] [address] [place] [id number] 03/20/2025 Corby Sanchez Plan Of Treatment No Information Progress Notes * JORGE KYRIE GDOB:[birth year] (69 yo M)Acc No.[id number]:03/20/2025 COLON WITH MAC Patient: KYRIE LAWRENCE Provider: Del Sanchez MD :1955 A ge:69 Y S ex:Male Date:03/20/2025 Address:[address] [place], [place] [phone] Pcp:Blue Acosta MD Subjective: * Chief Complaints: * 1 . Screening. * Medical History: Objective: * Vitals: Assessment: Plan: * Treatment: * * The named appointment provid er may or may not be the originator of this progress note, and it is not deemed complete until electronically signed by the appointment provider. Sign off status: Pending * Provider: Del Sanchez MD Date: 0 03/20/2025 Generated for Printi ng/Faxing/eTransmitting on: 10/17/2024 12:58 PM EST
--- OUTSIDE RECORDS SUMMARY | 2025-03-30 08:10 | XMS_ITS ---
Author Organization [facility] Address [address] [place] [address] Care Team Providers Care Dyeing Machine Back Tender Name Role Phone Blue Acosta MD Primary Care Provider Corby Michel [phone] Encounters Encounter Location Date Provider Diagnosis [facility] [place] [address] [place] [id number] 03/30/2025 Corby Sanchez Colon cancer scree ascencion [...] KYRIE JORGE GDOB:[birth year] (69 yo M)Acc No.[id number]:03/30/2025 COLON WITH MAC Patient: Yanick COLEMANPEYMAN KYRIE G Provider: Del Sanchez MD :1955 A ge:69 Y S ex:Male Date:03/30/2025 Address:[address] [place], [place] [phone] Pcp:Blue Acosta MD Subjective: * Chief Complaints: * * Medical History: Objective: * Vitals: Assessment: * Assessment: 1. C olon cancer screening - Z12.11 (Primary) 2 . P ersonal history of adenomatous and serrated colon polyps - Z86.0101 3 . D iverticulosis of large intestine without perforation or abscess without bleeding - K57.30 4 . O ther hemorrhoids - K64.8 Plan: * Treatment: * Procedure Codes: 4 5378 DIAGNOSTIC COLONOSCOPY, 0529F INTRVL 3+YRS PTS CLNSCP DOCD, 0528F RCMND FLW-UP 10 YRS DOCD, Modifiers: 1P * * The named appointment provid er may or may not be the originator of this progress note, and it is not deemed complete until electronically signed by the appointment provider. Sign off status: Pending * Provider: Del Sanchez MD Date: 0 03/30/2025 Generated for Navjot mccall/Janay/Dietersmitting on: 10/17/2024 12:58 PM EST
--- OUTSIDE RECORDS SUMMARY | 2025-07-10 02:00 | XMS_ITS ---
Author Organization Blue Acosta MD Address [address] [place], [place] [phone] Care Team Providers Care Inspector Hot Forgings Name Role Phone Blue Acosta Primary Care Provider Results Component Value Reference Range Notes Complete Blood Count Auto Di ff Reviewed date:07/10/2025 12:29:22 PM Interpretation: Performing Lab:[facility], [address] [place] [phone] Notes/Report: White Blood Count 10.2 4.8-10.8 X10*3/uL [...] Reviewed date:07/10/2025 12:29:39 PM Interpretation: Performing Lab:[address] [phone] Notes/Report: Triglycerides 98 <150 mg/dL Desirable Triglyceride: [...] (Free>4and<10) Reviewed date:07/10/2025 12:29:01 PM Interpretation: Performing Lab:[facility], [address] [place] [phone] Notes/Report: PSA,Total (Free>4and<10) 0.26 0.00-4.00 ng/mL A [...] A1c Reviewed date:07/10/2025 12:28:51 PM Interpretation: Performing Lab:[facility], [address] [place] [phone] Notes/Report: Hemoglobin A1c % 6.1 <6.0 % [...] average glucose, using the formula of the W9A-Jwskfpy Average Glucose study (ADAG), Diabetes Care, Vol.31,#8, May. 2007 REASON FOR VISIT FASTING LABS Immunizations Vaccine Route Administration Date Status Comme nts Influenza High Dose IM Intramuscular 07/10/2025 Administer ed Encounters Encounter Location Date Provider Diagnosis Blue Acosta MD [address] [place], [place] [phone] 07/10/2025 Blue Acosta Mixed hyperlipidemia E78.2 ; [...] Pending Test Test Name Order Date Comprehensive [place]. Panel Fast 5 Microalbumin, Random 07/10/2025 UA ClnCatch+Micro w/rflx Cult 07/10/2025 Next Appt Details Provider Name:Blue garrido, 08/18/2025 09:00:00 AM, [address], [address], [place], [place], [phone], Provider Name:Blue Arechiga ier, 01/18/2026 07:30:00 AM, [address], [address], [place], [phone], Provider Name:Blue Arechiga ier, 01/25/2026 09:00:00 AM, [address], [address], [place], [phone], Provider Name:Blue Arechiga ier, 07/12/2026 07:00:00 AM, [address], [address], [place], [phone], Provider Name:Blue Arechiga ier, 07/19/2026 08:30:00 AM, [address], [address], [place], [phone], Progress Notes * Mahin AMBROCIO GDOB:[birth year] (69 yo M)Acc No.[id number]:07/10/2025 Progress Note Patient: Mahin LAWRENCE Provider: Madan Acosta MD :1955 A ge:69 Y S ex:Male Date:07/10/2025 Address:[address] [place], [place] [phone] Subjective: * Chief Complaints: * 1 . FASTING LABS. * Medical History: Objective: * Vitals: Assessment: * Assessment: 1. E ncounter for administration of vaccine - Z23 (Primary) 2 . M ixed hyperlipidemia - E78.2 3 . E ssential hypertension - I10 4 . P rediabetes - R73.09 Plan: * Treatment: 2. E ssential hypertension L AB: Comprehensive [place]. Panel Fast L AB: Microalbumin, Random L [...] AM) 3. P rediabetes L AB: Comprehensive [place]. Panel Fast L AB: Microalbumin, Random L [...] * Procedure Codes: 3 6415 VENIPUNCT, ROUTINE*, 65679 FLU VACC PRSV FREE INC ANTIG, G0008 ADMN FLU VAC NO FEE SCHED SAME DAY * * The named appointment provid er may or may not be the originator of this progress note, and it is not deemed complete until electronically signed by the appointment provider. Sign off status: Pending * Provider: Madan Acosta MD Date: 0 07/10/2025 Generated for Navjot mccall/Janay/Tanoitting on: 10/17/2024 12:56 PM EST
--- OUTSIDE RECORDS SUMMARY | 2025-07-16 03:00 | XMS_ITS ---
Author Organization Blue Acosta MD Address [address] [place], [place] [id number] Care Team Providers Care New Media Strategist Name Role Phone Blue Acosta Primary Care Provider Allergies Allergen (clinical drug ingredient) Drug/Non Drug Allergy documented on EMR Reaction Allergy Type Onset Date Status zolpidem ambien (uncoded) hallucinations Allergy Active amoxil (uncoded) rash Allergy Act dick Results Component Value Reference Range Notes Microalbumin, Random Reviewed date:07/16/2025 12:43:31 PM Interpretation: Performing Lab:[facility], [address] [place] [phone] Notes/Report: Creatinine Urine 91.72 Microalbumin Urine 8.0 Microalbum/Creatinine Ratio Ur 8.7 <30 ug/mg cr Albumin/Creatinine Ratio Reference Ranges: Normal: < 30 ug/mg creatinine Microalbuminuria: 30 - 300 ug/mg creatinine Clinical Albuminuria: > 300 ug/mg creatinine UA ClnCatch+Micro w/rflx Cul t Reviewed date:07/16/2025 12:43:48 PM Interpretation: Performing Lab:[facility], [address] [place] [phone] Notes/Report: Urine, Clean Catch Color Urine Yellow Appearance Urine Clear PH 6.5 5.0-9.0 Glucose Urine UA Negative Negative mg/dL Urine Blood Negative Negative Specific [place] - Urine 1.015 1.005-1.025 Urine Protein Negative [...] Status W/U Status Risk Notes Problem Sinusitis (36720826) Sinusitis (J32.9) Active confirmed Vital Signs Blood pressure systolic 162 mm Hg 07/16/20 25 Blood pressure diastolic 80 mm Hg 025 Height 73 in 07/16/2025 Weight 344 lbs 07/16/2025 BMI 45.38 kg/m2 07/16/2025 weight is up 6 pounds since 01-09-25 Encounters Encounter Location Date Provider Diagnosis Blue Acosta MD [address] [place] [address] [place] [phone] 07/16/2025 Blue Acosta Prediabetes R73.09 ; Essential [...] 4 Weeks, Reason: Provider Name:Blue Arechiga ier, 08/18/2025 09:00:00 AM, [address] [place] [address], [address] [place] [address], [phone], Provider Name:Blue Arechiga ier, 01/18/2026 07:30:00 AM, [address] [place] [address], [address], [phone], Provider Name:Blue reyr, 01/25/2026 09:00:00 AM, [address] [place] [address], [address], [phone], Provider Name:Blue Arechiga ier, 07/12/2026 07:00:00 AM, [address] [place] [address], [address], [phone], Provider Name:Blue Arechiga ier, 07/19/2026 08:30:00 AM, [address] [place] [address], [address], [phone], Progress Notes * Mahin AMBROCIO GDOB:[birth year] (69 yo M)Acc No.[id number]:07/16/2025 Patient: Yanick COLEMANMahin MORLEY Provider: Madan Acosta MD :1955 A ge:69 Y S ex:Male Date:07/16/2025 Address:[address] [place], [place] [phone] Subjective: * Chief Complaints: * R eview [...] MD Date: Generated for Navjot mccall/Janay/Tanoitting on: 10/17/2024 12:58 PM EST History and Physical Notes * [...]
--- OUTSIDE RECORDS SUMMARY | 2025-08-04 08:25 | XMS_ITS ---
Author Organization Blue Acosta MD Address [address] [place] [address] [place] [phone] Care Team Providers Care Hot Air Furnace Installer Repairer Name Role Phone Blue Acosta Primary Care Provider [phone] REASON FOR VISIT ER Encounters Encounter Location Date Provider Diagnosis Blue Acosta MD [address] [place] [address] [place] [id number] 08/04/2025 Blue Acosta Plan Of Treatment Next Appt Details Provider Name:Blue garrido, 08/18/2025 09:00:00 AM, [address] [place] [address], [address], [phone], Provider Name:Blue garrido, 01/18/2026 07:30:00 AM, [address] [place] [address], [address], [phone], Provider Name:Blue garrido, 01/25/2026 09:00:00 AM, [address] [place] [address], [address], [phone], Provider Name:Blue garrido, 07/12/2026 07:00:00 AM, [address] [place] [address], [address], [phone], Provider Name:Blue garrido, 07/19/2026 08:30:00 AM, [address] [place] [address], [phone], Progress Notes * Mahin AMBROCIO GDOB:[birth year] (69 yo M)Acc No.[id number]:08/04/2025 Patient: Mahin LAWRENCE :1955 A ge:69 Y S ex:Male Address:[address] [place], [place] [id number] * true * Date: Generated for Navjot mccall/Janay/Tanoitting on: 10/17/2024 12:55 PM EST
--- OUTSIDE RECORDS SUMMARY | 2025-08-17 12:56 | XMS_ITS | Data Portability ---
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 Plan of Treatment Reminders Order Date Submit Date Provider Last Modified By Organization Details Last Modified Time Details Appointments None recorded. Lab rapid SARS CoV 2 Ag, QL IA, respiratory specimen 2022 023 [email or web address] [facility], [address] [place] [address], [id number], 3 13:13:33 rapid strep group A, throat 2022 023 [email or web address] [facility], [address] [place] [address], [phone], 3 13:13:33 Referral None recorded. Procedures None recorded. Surgeries None recorded. Imaging None recorded. Medication Orders fluticasone propionate 50 mcg/actuati on nasal spray,suspe nsion 2022 023 [id number], [address] [place], [address], 3 13:32:31 cetirizine 10 mg tablet 2022 023 [id number], [address] [place], [address], 3 13:32:39 Patient TargetsNo targets recorded. Patient InstructionsNo instructions recorded. Reason for Referral None Reported. Results Created Date Observation Date Name Description Value Unit Range Abnormal Flag Note LastModifiedBy Organization Detail LastModifiedTime 01/27/20 23 01/26/2023 rapid SARS CoV 2 Ag, QL IA, respi rator y speci men Unknown Analyte Normal =Negat dick Not Available [address] [place] [address], [id number], 01/26/2023 12:42:27 01/27/20 23 01/26/2023 rapid SARS CoV 2 Ag, QL IA, respi rator y speci men Unknown Analyte negati ve Not Available [address] [place] [address], [phone], 01/26/2023 12:42:27 01/27/20 23 01/26/2023 rapid strep group A, throa t Unknown Analyte Normal = Negati ve Not Available [address] [place] [address], [phone], 01/26/2023 12:47:49 01/27/2001/26/2023 rapid strep group A, throa t Unknown Analyte negati ve Not Available [address] [place] [address], [phone], 01/26/2023 12:47:49 Result Notes None recorded. Problems Name Problem SNOMED Code Status Onset Date Resolution Date Notes Provider Name and Address Organization Details Recorded Time Atrial fibrillation 09351018 Active 2022 Kathy harmon, [place] - [facility] 3 12:46:09 Hypertensive disorder 22875491 Active 2022 Kathy harmon, PA - [facility] 12:46:15 Problem Notes None recorded. Medical Equipment None Reported. Allergies Allergen ID Allergen Name Allergen Category Reaction Reaction Severity Criticality Documentation Date Start Date Code Code System Note Provider Name and Address Organization Details Recorded Time 597757 grass pollen environme nt,medica tion Not available Not available Not available 01/26/2023 Kathy harmon, PA - [facility] 3 12:44:21 819723 cat dander environme nt Not available Not available Not available 01/26/2023 Kathy harmon, PA - [facility] 3 12:44:25 563479 Canis lupus familiari s extract environme nt Not available Not available Not available 01/26/2023 54716 4 RxNorm Kathy harmon, PA - [facility] 3 12:44:28 707045 house dust allergeni c extract environme nt,medica tion Not available Not available Not available 01/26/2023 64054 9 RxNorm Kathy harmon, PA - [facility] 3 12:44:34 688329 mold extract environme nt Not available Not available Not available 01/26/2023 88803 8 [facility], [facility] [...] propionate 50 mcg/actuati on nasal spray,suspe nsion [place] 1 spray every day by intranasa l [...] Updated DateTime 3 190.5 cm 40 kg/m2 612174. 56 g 6 18 /min 97 % 97 % 61 /min 98 [degF] 128/77 mm[Hg] Kathy Lucas [facility] 3 12:49:00 Social History Question Answer Notes LastModified by [facility] Details LastModified Time Tobacco Smoking Status Never Smoker BALDO Marcelo [facility] 01/26/2023 12:46:44 Have You Recently Traveled Abroad? No Information not available 01/26/2023 Sex: Unknown Functional Status Question Answer Note LastModified by [facility] Details LastModified Time Do you use any [...] ICD10 Code Diagnosis IMO Codes Diagnosis Note [id number] [facility] [address] [place] [address] 02/23/2022 08:42:28 02/23/2022 10:05:26 [id number] [place] [address] [place] [address] 01/26/2023 10:33:28 01/26/2023 13:38:31 Upper respiratory infection 86984477 J06.9 Viral infectionR ecommend plenty of fluidsTyle nol for pain/fever Humidifier Nasal saline sprayNo need for antibiotic may last up to 2 weeksCall or RTC if worsening cough, SOB, high fever, rash, n/v/d and unable to hydrate Allergic rhinitis 306959 04 J30.9 Sx and PE c/w allergic [...] ID Guarantor Name 01/26/2023 1 MEDICARE B-[place]: [employer] Mahin Ha [id number] Mahin Ha 01/26/2023 2 [facility] IN[employer]MN[facility] (INDEMNITY) [id number] Mahin Ha [id number] Mahin Ha Notes Date Note Type Note Provider Name and Address Organization Details Recorded Time 01/26/2023 text/html COVID-19 SymptomsReported by Patient CongestionReported by [email or web address] yo male c/o congestion and sore throat [...] Hall DO [address] [place], [address], [place] - [facility] 01/26/2023 13:33:08
--- OUTSIDE RECORDS SUMMARY | 2025-08-17 12:56 | XMS_ITS | Patient Health Record ---
Author Organization [facility] Address [address] [place] [address] Care Team Providers Care Music Department Chair Name Role Phone Blue Acosta MD Primary Care Provider Corby Michel [phone] Allergies Allergen (clinical drug ingredient) Drug/Non Drug [...] Status Risk Notes Problem Irritable bowel syndrome (90637858) Irritable bowel syndrome (K58.9) Active confirmed Problem Screening for malignant neoplasm of colon (725280150) Encounter for screening for malignant neoplasm of colon (Z12.11) Active confirmed Problem History of adenomatous polyp of colon (550525669) History of adenomatous polyp of colon (Z86.010) Active confirmed Problem Constipation (15376602) Constipation (K59.00) Active confirmed Problem Abdominal bloating (230324830) Abdominal bloating (R14.0) Active confirmed Problem Preprocedural examination (386694243399405) Preprocedural examination (Z01.818) Active confirmed Problem Long-term current use of antiplatelet drug (879728583124322) Long-term use of aspirin therapy (Z79.82) Active confirmed Problem Chronic constipation (351216785) Constipation, chronic (K59.00) Active confirmed Problem Benign neoplasm of colon (96263700) Serrated adenoma of colon (D12.6) Active confirmed Problem Serrated polyp of colon (873959746) Serrated polyp of colon (K63.5) Active confirmed Vital Signs Blood pressure diastolic 11 mm Hg 12/11/2024 Height 74 in 12/11/2024 Blood pressure systolic 111 mm Hg 12/11/2024 Weight 337 lbs 12/11/2024 BMI 43.26 kg/m2 12/11/2024 Procedures Procedure Date Ordered Date Performed Result Body Sit e COLONOSCOPY 12/11/2024 N/A Encounters Encounter Location Date Provider Diagnosis [facility] [address] [place] [place], [place] [phone] 03/30/2025 Corby Sanchez Colon cancer screeni ng Z12.11 ; Personal history of adenomatous and serrated colon polyps Z86.0101 ; Diverticulosis of large intestine without perforation or abscess without bleeding K57.30 and Other hemorrhoids K64.8 [facility] [address] [place] [address] 12/11/2024 Corby Sanchez History of adenomato us polyp of colon Z86.010 ; Abdominal bloating R14.0 ; Encounter for screening for malignant neoplasm of colon Z12.11 ; Preprocedural examination Z01.818 ; Long-term use of aspirin therapy Z79.82 ; Serrated polyp of colon K63.5 ; Serrated adenoma of colon D12.6 and Irritable bowel syndrome K58.9 [facility] [address] [place] [address] 12/11/2024 Corby Sanchez [facility] [address] [place] [address] 02/24/2025 Corby Sanchez [facility] [address] [place] [address] [place] [address] 03/26/2025 Corby Sanchez Assessments Encounter Date Diagnosis [...] advised him that he could try some nuyq-cig-zzrvhal simethicone to help with the bloating and [...] advised him that he could try some rsur-pll-cxwenwm simethicone to help with the bloating and [...] advised him that he could try some lznu-tfg-uvzdgyo simethicone to help with the bloating and [...] advised him that he could try some fxde-ssk-hyxbskl simethicone to help with the bloating and [...] advised him that he could try some cbcb-fht-onooxgv simethicone to help with the bloating and [...] advised him that he could try some eabc-svg-zvxtkeh simethicone to help with the bloating and [...] advised him that he could try some oijr-rls-esvlxjk simethicone to help with the bloating and [...] advised him that he could try some pmpz-yfn-vxzosfg simethicone to help with the bloating and [...] End Date MEDICARE OF [place] [address] [place] [address] [phone] [id number] JORGEKYRIE CHEUNG Self - patient is the insured [employer] ([employer]) [address] [place], [place] [id number] KYRIE JORGE Self - patient is the insured Medical (General) History Medical History History ICD Code Colonoscopy 12/29/2005-negati ve for polyps; colonoscopy in 04/2012 with a tiny serrated adenoma of the cecum, diverticulosis, and internal hemorrhoids ERCP for choledocholithiasis in 06/2005 Duodenal ulcers in 2004 Denies NC,DM,CVA,Lung disease,renal dise ase HTN Sleep apnea--uses a [...]
--- OUTSIDE RECORDS SUMMARY | 2025-08-17 12:57 | XMS_ITS | Patient Health Record ---
[facility] Organization [facility] Address [address] [place] [address] Care Team Providers Care Knitting Supervisor Name Role Phone Blue Acosta MD Primary Care Provider Milli Jimenez Unavailable [phone] Allergies Allergen (clinical drug ingredient) Drug/Non Drug [...] W/U Status Risk Notes Problem Tinea unguium (165836456) Tinea unguium (B35.1) Active confirmed Problem Acquired hammer toe of left foot (2361274737161336 ) Other hammer toe(s) (acquired), left foot (M20.42) Active confirmed Problem Localized, primary osteoarthritis of the ankle and/or foot (966344720) Arthritis of joint of lesser toe, left [...] X ray : Foot, left 3V 05/06/2024 52761-RUKIBIX NAIL, 1-5 08/17/2023 20098-PUVOSPB NAIL, 1-5 03/31/2016 29776- Debride <25 sq cm 09/02/2013 51240- Debride <25 sq cm 08/17/2023 91054-KIIVQZH SKIN/TISSUE 07/07/2013 90743-TFQDRVU SKIN/TISSUE 07/22/2013 95808-HOAFMMX SKIN/TISSUE 08/12/2013 Insurance Providers Payer Name Payer Address Payer Phone Subscriber Number Group Number Insured Name Patient Relationship to Insured Coverage Start Date Coverage End Date Medicare [employer] [address] [facility] [place] [address] [phone] [id number] Mahin Ha Self - patient is the insured [facility] [address] [place] [address] [id number] Mahin Ha Self - patient is [...]
== END 2025-08-17 10:38 | disposition home or self-care (01) ==
LOC: HO.HMGAL 10:37
PROVIDERS: PCP Internal Medicine; Visit Provider Registered Nurse Emergency
DX: J30.89 Other allergic rhinitis (principal)
CPT/HCPCS: 95117; 95165

== ENCOUNTER 2025-09-03 07:47 | Outpatient (AMB) | payer MEDICARE, OTHER, SELFPAY ==
--- OUTSIDE RECORDS SUMMARY | 2024-04-09 10:15 | XMS_ITS ---
Author Organization [facility] Address [address] [place] [address] Care Team Providers Care K 9 Handler/ Deputy Name Role Phone Blue Acosta MD Primary Care Provider Milli Jimenez Unavailable [phone] Camara Encounters Encounter Location Date Provider Diagnosis [facility] [address] [place] [address] 04/09/2024 Milli Yost Plan Of Treatment No Information Progress Notes * Mahin JORGE GDOB:[birth year] (69 yo M)Acc No.[id number]:04/09/2024 Progress Note Patient: Mahin LAWRENCE Provider: Harjit Yost DPM :1955 A ge:68 Y S ex:Male Date:04/09/2024 [place]: [place], [id number] Pcp:Blue Acosta MD Subjective: * Chief Complaints: [...] 04/09/2024 Generated for Navjot mccall/Janay/Kristy on: 1 11/03/2024 07:51 AM EST
--- OUTSIDE RECORDS SUMMARY | 2024-04-23 05:00 | XMS_ITS ---
Author Organization [facility] Address [address] [facility] [place] [address] Care Team Providers Care Field Sales Associate Name Role Phone Karla PAZ, Blue Primary Care Provider UnaMilli Barrett Unavailable [phone] Encounters Encounter Location Date Provider Diagnosis Surgery [facility] [address] [place] [address] 04/23/2024 Milli Yost Plan Of Treatment No Information Progress Notes * Mahin JORGE GDOB:[birth year] (69 yo M)Acc No.[id number]:04/23/2024 Patient: Mahin LAWRENCE Provider: Harjit Yost DPM :1955 A ge:68 Y S ex:Male Date:04/23/2024 Address:[address] [id number] Pcp:Blue Acosta MD * Images: * The named appointment provid er may or may not be the originator of this progress note, and it is not deemed complete until electronically signed by the appointment provider. Sign off status: Pending * Provider: Harjit Yost DPM Date: 0 04/23/2024 Generated for Printi ng/Faxing/eTransmitting on: 1 11/03/2024 07:53 AM EST
--- OUTSIDE RECORDS SUMMARY | 2024-07-10 06:00 | XMS_ITS ---
Author Organization Blue Acosta MD Address [address] [place], [place] [id number] Care Team Providers Care Vice President Diversity Name Role Phone Blue Acosta Primary Care [...] Location Date Provider Diagnosis Blue Acosta MD [address] [place] [address] [place] [phone] 07/10/2024 Blue Acosta Essential hypertensi on I10 [...] Up: 6 Months, Reason: Provider Name:Blue garrido, 09/15/2025 09:00:00 AM, [address] [place] [address], [address], [phone], Provider Name:Blue garrido, 01/18/2026 07:30:00 AM, [address] [place] [address], [address], [phone], Provider Name:Blue garrido, 01/25/2026 09:00:00 AM, [address] [place] [address], [address], [phone], Provider Name:Blue garrido, 07/12/2026 07:00:00 AM, [address] [place] [address], [address], [phone], Provider Name:Blue garrido, 07/19/2026 08:30:00 AM, [address] [place] [address], [address], [phone], Progress Notes * Mahin AMBROCIO GDOB:[birth year] (68 yo M)Acc No.[id number]:07/10/2024 Patient: Mahin Galdamez Provider: Madan Acosta MD :1955 A ge:68 Y S ex:Male Date:07/10/2024 Address:[address] [place], [place] [phone] Subjective: * Chief Complaints: * R eview [...] 1 cat. no Travel outside of the [facility], [facility]. * Medications: T akingGabapentin 300 MG Capsule [...] mg/dL Urine Blood Negative Negative - Specific [place] - Urine 1.010 1.005-1.025 - Urine Protein [...] Urine 0-2 0-2 - /LPF L ab:Comprehensive [place]. Panel Fast (Order Date - 07/03/2024) (Collection [...] 07/10/2024 Generated for Navjot mccall/Janay/Dietersmitting on: 1 11/03/2024 07:52 AM EST History and Physical Notes * HPI [...]
--- OUTSIDE RECORDS SUMMARY | 2025-01-02 03:00 | XMS_ITS ---
Author Organization Blue Acosta MD Address [address] [place], [place] [phone] Care Team Providers Care Orthopaedic Technologist Name Role Phone Blue Acosta Primary Care Provider Results Component Value Reference Range Notes Liver Panel Reviewed date:01/02/2025 12:30:46 PM Interpretation: Performing Lab:[address] [id number] Notes/Report: Bilirubin Total 0.6 0.0-1.0 mg/dL Bilirubin Direct 0.3 0.0-0.5 mg/dL Aspartate Amino Transferase 29 5-37 U/L Alanine Aminotransferase 22 0-40 U/L Total Protein 7.6 6.5-8.0 g/dL Albumin Level 3.9 3.5-5.0 g/dL Alkaline Phosphatase 80 39-117 U/L Glucose Fasting Reviewed date:01/02/2025 12:30:54 PM Interpretation: Performing Lab:[address] [phone] Notes/Report: Glucose Fasting 118 60-99 mg/dL A fasting glucose from 100-125 mg/dl is considered impaired (pre-diabetes). Lipid Panel with Reflex Reviewed date:01/02/2025 12:31:05 PM Interpretation: Performing Lab:[address] [id number] Notes/Report: Triglycerides 118 <150 mg/dL Desirable Triglyceride: less than 150 mg/dL Borderline High Triglyceride 150-199 mg/dL High Triglyceride: 200-499 mg/dL Very High Triglyceride: greater than or equal to 5OO mg/dL Cholesterol 118 <200 mg/dL Desirable Cholesterol: less than 200 mg/dL Borderline High Cholesterol: 200-239 mg/dL High Cholesterol: greater than 239 mg/dL LDL Cholesterol Calculated 59 <100 mg/dL Desirable LDL: less than 100 mg/dL Near Optimal/Above Optimal LDL: 110-129 mg/dL Borderline High LDL: 130-159 mg/dL High LDL: 160-189 mg/dL Very High LDL: greater than or equal to 190 mg/dL HDL Cholesterol 36 >40 mg/dL Desirable HDL: greater than 40 mg/dL Note: This HDL assay may give artificially low results in patients with liver disease. Hemoglobin A1c Reviewed date:01/03/2025 06:16:13 PM Interpretation: Performing Lab:[facility], [address] [place] [phone] Notes/Report: Hemoglobin A1c % 5.6 <6.0 % [...] average glucose, using the formula of the H9F-Gxcdtae Average Glucose study (ADAG), Diabetes Care, Vol.31,#8, May. 2007 REASON FOR VISIT FASTING LIPIDS Encounters Encounter Location Date Provider Diagnosis Blue Acosta MD [address] [place] [address] [place] [phone] 01/02/2025 Blue Acosta Mixed hyperlipidemia E78.2 and Prediabetes R73.09 Assessments Encounter Date Diagnosis (ICD Code) Assessment Notes Treatment Notes Treatment Clinical Notes Section Notes 01/02/2025 Mixed hyperlipidemia (ICD-10 - E78.2) 01/02/2025 Prediabetes (ICD-10 - R73.09) Plan Of Treatment Next Appt Details Provider Name:Blue garrido, 09/15/2025 09:00:00 AM, [address] [place] [address], Suite [facility], [place], [place], [phone], Provider Name:Blue garrido, 01/18/2026 07:30:00 AM, [address], [address], [place], [phone], Provider Name:Blue Arechiga ier, 01/25/2026 09:00:00 AM, [address], [address], [place], [phone], Provider Name:Blue Arechiga ier, 07/12/2026 07:00:00 AM, [facility], [address], [place], [place], [phone], Provider Name:Blue Arechiga ier, 07/19/2026 08:30:00 AM, [address] [facility] [address], [address], [place], [place], [phone], Progress Notes * Mahin AMBROCIO GDOB:[birth year] (69 yo M)Acc No.[id number]:01/02/2025 Progress Note Patient: Mahin LAWRENCE Provider: Madan Acosta MD :1955 A ge:69 Y S ex:Male Date:01/02/2025 Address:[address] [place], [place] [phone] Subjective: * Chief Complaints: * 1 . FASTING LIPIDS. * Medical History: Objective: * Vitals: Assessment: * Assessment: 1. M ixed hyperlipidemia - E78.2 (Primary) 2 . P rediabetes - R73.09 ? Plan: * Treatment: 2. P rediabetes L AB: Liver Panel (Collection Date & Time - 01/02/2025 08:00 AM) L AB: Glucose Fasting (Collection Date & Time - 01/02/2025 08:00 AM) L AB: Lipid Panel with Reflex (Collection Date & Time - 01/02/2025 08:00 AM) L AB: Hemoglobin A1c (Collection Date & Time - 01/02/2025 08:00 AM) * Procedure Codes: 3 6415 VENIPUNCT, ROUTINE* * * The named appointment provid er may or may not be the originator of this progress note, and it is not deemed complete until electronically signed by the appointment provider. Sign off status: Pending * Provider: Madan Acosta MD Date: 0 01/02/2025 Generated for Navjot mccall/Janay/Kristy on: 1 11/03/2024 07:51 AM EST
--- OUTSIDE RECORDS SUMMARY | 2025-01-08 15:26 | XMS_ITS ---
Author Organization Blue Acosta MD Address [address] [place] [address] [place] [address] [phone] Care Team Providers Care Elevator Adjuster Name Role Phone Blue Acosta Primary Care Provider REASON FOR VISIT ER Encounters Encounter Location Date Provider Diagnosis Blue Acosta MD [address] [place] [address] [place] [address] [phone] 01/08/2025 Blue Acosta Plan Of Treatment Next Appt Details Provider Name:Blue garrido, 09/15/2025 09:00:00 AM, [address] [place] [address], [address], [phone], Provider Name:Blue garrido, 01/18/2026 07:30:00 AM, [address] [place] [address], [address], [phone], Provider Name:Blue garrido, 01/25/2026 09:00:00 AM, [address] [place] [address], [address], [phone], Provider Name:Blue garrido, 07/12/2026 07:00:00 AM, [address] [place] [address], [address], [phone], Provider Name:Blue garrido, 07/19/2026 08:30:00 AM, [address] [place] [address], [address], [phone], Progress Notes * Mahin AMBROCIO GDOB:[birth year] (69 yo M)Acc No.[id number]:01/08/2025 Patient: Mahin LAWRENCE :1955 A ge:69 Y S ex:Male Address:[address] [place], [place] [id number] * true * Date: Generated for Navjot mccall/Janay/Tanoitting on: 11/03/2024 07:52 AM EST
--- OUTSIDE RECORDS SUMMARY | 2025-01-09 04:15 | XMS_ITS ---
Author Organization Blue Acosta MD Address [address] [place], [place] [phone] Care Team Providers Care Prisoner Classification Interviewer Name Role Phone Blue Acosta Primary Care Provider [phone] Allergies Allergen (clinical drug ingredient) Drug/Non Drug Allergy documented on EMR Reaction Allergy Type Onset Date Status zolpidem ambien (uncoded) hallucinations Allergy Active amoxil (uncoded) rash Allergy Act dick REASON FOR VISIT 6 MO F/U and f/u ER visits x 2, Accompanied by Medications Medication SIG (Take, Route, Frequency, Duration) Notes Start Date End Date Status Nitrostat 0.4 MG 1 tablet under the tongue and allow to dissolve as needed Sublingual every 15 min for pain. may repeat time 3 for 30 days 05/16/2012 Not-Taking diazePAM 5 MG 1-2 tablet as needed Orally every 8 hours Not-Taking ProAir HFA 108 (90 Base) MCG/ACT 2 puffs as needed Inhalation every 4 hrs for 30 days 11/20/2016 Not-Taking Meclizine HCl 25 MG TAKE 1 TABLET BY DARIA TH EVERY DAY NEEDED for 30 Not-Taking Mupirocin 2 % 1 application Externally Three times a day for 10 days 01/24/2021 Not-Taking Metoprolol Succinate ER 50 MG TAKE 1 TABLET BY MOUTH EVERY DAY for 90 Active Lisinopril 20 MG TAKE 1 TABLET BY DARIA TH EVERY DAY Active Atorvastatin Calcium 20 MG TAKE 1 TABLET BY MOUTH EVERY DAY Active Celecoxib 200 MG TAKE 1 CAPSULE BY MOUTH EVERY DAY for 90 Active Triamcinolone Acetonide 0.5 % APPLY TO AFFECTED AREA TWICE A DAY EXTERNALLY FOR 30 DAYS for 30 Active Xarelto 20 MG 1 tablet with food Orally Once a day Active Flecainide Acetate 100 MG 1 tablet Orall y twice a day Active Gabapentin 300 MG 3 capsules qhs Orall y Once a day hs Active traMADol HCl 50 MG 1 tablet Orally Once a day Active Cyclobenzaprine HCl 10 MG 1 tablet at be dtime as needed Orally Once a day Active predniSONE 20 MG 2 tabs Orally Once a day Active levoFLOXacin 500 MG 1 tablet Orally Once a day Active Morphine Sulfate 15 MG 1 tablet as neede d Orally every 4 hrs Active Vital Signs Blood pressure systolic 158 mm Hg 01/10/20 25 Blood pressure diastolic 80 mm Hg 025 Height 73 in 01/09/2025 Weight 338 lbs 01/09/2025 BMI 44.59 kg/m2 01/09/2025 weight is down 6 pounds [facility] e 07-10-24 Encounters Encounter Location Date Provider Diagnosis Blue Acosta MD [address] [place] [address] [address] [place], [place] [phone] 01/09/2025 Blue Acosta Pleural effusion J90 ; Lumbar disc disease with radiculopathy M51.16 ; Foot drop, left M21.372 ; Prediabetes R73.09 and Mixed hyperlipidemia E78.2 Assessments Encounter Date Diagnosis (ICD Code) Assessment Notes Treatment Notes Treatment Clinical Notes Section Notes 01/09/2025 Pleural effusion (ICD-10 - J90) pending diagnostic testing, THE ORDER WAS PRINTED AND GIVEN TO KYRIE 01/09/2025 Lumbar disc disease with radiculopathy (ICD-10 - M51.16) pending diagnstic testing, THE ORDER HAS BEEN FAXED TO [facility] FOR SCHEDULING 01/09/2025 Foot drop, left (ICD-10 - M21.372) pending diagnostic testing 01/09/2025 Prediabetes (ICD-10 - R73.09) stable, no need for medication at this time, will contiue to monitor 01/09/2025 Mixed hyperlipidemia (ICD-10 - E78.2) stable, will continue current regiment Plan Of Treatment Medication Medication Name Sig Start Date Stop Date Notes Atorvastatin Calcium 20 MG TAKE 1 TABLET BY MOUTH EVERY DAY Treatment Notes Assessment Notes Pleural effusion pending diagnostic t esting, THE ORDER WAS PRINTED AND GIVEN TO KYRIE Lumbar disc disease with radiculopathy p ending diagnstic testing, THE ORDER HAS BEEN FAXED TO [facility] FOR SCHEDULING Foot drop, left pending diagnostic t esting Prediabetes stable, no need for medication at this time, will contiue to monitor Mixed hyperlipidemia stable, will contin ue current regiment Pending Test Test Name Order Date MRI LUMBAR SPINE NO CONTRAST 01/09/2025 XR CHEST 2 VIEW PA & LAT 01/09/2025 Next Appt Details Provider Name:Blue Arechiga ier, 09/15/2025 09:00:00 AM, [address] [place] [address], [address] [place] [address], [phone], Provider Name:Blue Arechiga ier, 01/18/2026 07:30:00 AM, [address] [place] [address], Suite [facility], [place], [place], [phone], Provider Name:Blue Arechiga ier, 01/25/2026 09:00:00 AM, [address] [place] [address], [address], [phone], Provider Name:Blue Arechiga ier, 07/12/2026 07:00:00 AM, [address] [place] [address], [address] [place] [address], [phone], Provider Name:Blue Arechiga ier, 07/19/2026 08:30:00 AM, [address] [place] [address], [address] [place] [address], [phone], Progress Notes * Kyrie AMBROCIO GDOB:[birth year] (69 yo M)Acc No.[id number]:01/09/2025 Progress Notes Patient: Kyrie LAWRENCE Provider: Madan Acosta MD :1955 A ge:69 Y S ex:Male Date:01/09/2025 Address:[address] [place], [place] [phone] Subjective: * Chief Complaints: * 6 MO F/U and f/u ER visits x 2Accompanied by * HPI: S ymptom(s): patient is a 69 yo male here for 6 month follow up visit, as well as follow up of recent ER visits. * ROS: G eneral/Constitutional: Denies [place] hills. D enies F atigue. D enies F ever. D enies H eadache. E NT: Denies S ore throat. R espiratory: Raquel Samson ough. D engwen S hortness of breath at rest. D enies S hortness of breath with exertion. G astrointestinal: Raquel D iarrhea. D engwen N ausea. M usculoskeletal: Patient complaining of w eakness in left leg and pain in leg. * Medical History: * Surgical History: * Hospitalization/Major Diagno stic Procedure: * Medications: T akinglevoFLOXacin 500 MG Tablet 1 tablet Orally Once a day Morphine Sulfate 15 MG Tablet 1 tablet as needed Orally every 4 hrs predniSONE 20 MG Tablet 2 tabs Orally Once a day Cyclobenzaprine HCl 10 MG Tablet 1 tablet at bedtime as needed Orally Once a day Gabapentin 300 MG Capsule 3 capsules qhs Orally Once a day hs traMADol HCl 50 MG Tablet 1 tablet Orally Once a day Xarelto 20 MG Tablet 1 tablet with food Orally Once a day Flecainide Acetate 100 MG Tablet 1 tablet Orally twice a day Lisinopril 20 MG Tablet TAKE 1 TABLET BY MOUTH EVERY DAY Metoprolol Succinate ER 50 MG Tablet Extended Release 24 Hour TAKE 1 TABLET BY MOUTH EVERY DAY Atorvastatin Calcium 20 MG Tablet TAKE 1 TABLET BY MOUTH EVERY DAY Celecoxib 200 MG Capsule TAKE 1 CAPSULE BY MOUTH EVERY DAY Triamcinolone Acetonide 0.5 % Cream APPLY TO AFFECTED AREA TWICE A DAY EXTERNALLY FOR 30 DAYS Taking levoFLOXacin 500 MG Tablet 1 tablet Orally Once a day Taking Morphine Sulfate 15 MG Tablet 1 tablet as needed Orally every 4 hrs Taking predniSONE 20 MG Tablet 2 tabs Orally Once a day Taking Cyclobenzaprine HCl 10 MG Tablet 1 tablet at bedtime as needed Orally Once a day Taking Gabapentin 300 MG Capsule 3 capsules qhs Orally Once a day hs Taking traMADol HCl 50 MG Tablet 1 tablet Orally Once a day Taking Xarelto 20 MG Tablet 1 tablet with food Orally Once a day Taking Flecainide Acetate 100 MG Tablet 1 tablet Orally twice a day Taking Lisinopril 20 MG Tablet TAKE 1 TABLET BY MOUTH EVERY DAY Taking Metoprolol Succinate ER 50 MG Tablet Extended Release 24 Hour TAKE 1 TABLET BY MOUTH EVERY DAY Taking Atorvastatin Calcium 20 MG Tablet TAKE 1 TABLET BY MOUTH EVERY DAY Taking Celecoxib 200 MG Capsule TAKE 1 CAPSULE BY MOUTH EVERY DAY Taking Triamcinolone Acetonide 0.5 % Cream APPLY TO AFFECTED AREA TWICE A DAY EXTERNALLY FOR 30 DAYS Not-Taking/PRNMeclizine HCl 25 MG Tablet TAKE 1 TABLET BY MOUTH EVERY DAY NEEDED Mupirocin 2 % Ointment 1 application Externally Three times a day diazePAM 5 MG Tablet 1-2 tablet as needed Orally every 8 hours ProAir HFA 108 (90 Base) MCG/ACT Aerosol Solution 2 puffs as needed Inhalation every 4 hrs Nitrostat 0.4 MG Tablet Sublingual 1 tablet under the tongue and allow to dissolve as needed Sublingual every 15 min for pain. may repeat time 3 Medication List reviewed and reconciled with the patientNot-Taking/PRN Meclizine HCl 25 MG Tablet TAKE 1 TABLET BY MOUTH EVERY DAY NEEDED Not- Taking/PRN Mupirocin 2 % Ointment 1 application Externally Three times a day Not-Taking/PRN diazePAM 5 MG Tablet 1-2 tablet as needed Orally every 8 hours Not-Taking/PRN ProAir HFA 108 (90 Base) MCG/ACT Aerosol Solution 2 puffs as needed Inhalation every 4 hrs Not-Taking/PRN Nitrostat 0.4 MG Tablet Sublingual 1 tablet under the tongue and allow to dissolve as needed Sublingual every 15 min for pain. may repeat time 3 Medication List reviewed and reconciled with the patient * Allergies: a moxil: rashambien: hallucinationsyes[Allergies Verified] Objective: * Vitals: H t: 73, Wt: 338, BMI:44.59, BP:158/80, Repeat BP:120/86, Wt-k.32. weight is down 6 pounds since 07-10-24. * P ast Orders: L ab:Liver Panel (Order Date - 01/02/2025) (Collection Date & Time - 01/02/2025 08:00 AM) Value Reference Range Bilirubin Total 0.6 0.0-1.0 - mg/dL Bilirubin Direct 0.3 0.0-0.5 - mg/dL Aspartate Amino Transferase 29 5-37 - U/L Alanine Aminotransferase 22 0-40 - U/L Total Protein 7.6 6.5-8.0 - g/dL Albumin Level 3.9 3.5-5.0 - g/dL Alkaline Phosphatase 80 39-117 - U/L L ab:Glucose Fasting (Order Date - 01/02/2025) (Collection Date & Time - 01/02/2025 08:00 AM) Value Reference Range Glucose Fasting 118 H 60-99 - mg/dL L ab:Lipid Panel with Reflex (Order Date - 01/02/2025) (Collection Date & Time - 01/02/2025 08:00 AM) Value Reference Range Triglycerides 118 <150 - mg/dL Cholesterol 118 <200 - mg/dL LDL Cholesterol Calculated 59 <100 - mg/dL HDL Cholesterol 36 L >40 - mg/dL L ab:Hemoglobin A1c (Order Date - 01/02/2025) (Collection Date & Time - 01/02/2025 08:00 AM) Value Reference Range Hemoglobin A1c % 5.6 <6.0 - % Estimated Average Glucose 114 - mg/dL * Examination: G eneral Examination: GENERAL APPEARANCE: a lert, well hydrated, in no distress.? HEAD: n ormocephalic. SKIN: g ood turgor. HEART: n o murmurs, rubs, gallops, regular rate and rhythm.? LUNGS: n o wheezes, rales, rhonchi, good air movement, clear to auscultation bilaterally. NEUROLOGIC: a bnormal with 60%loss of dorsiflexion.? Assessment: * Assessment: 1. P leural effusion - J90 (Primary) 2 . L umbar disc disease with radiculopathy - M51.16 3 . F oot drop, left - M21.372 4 . P rediabetes - R73.09 5 . M ixed hyperlipidemia - E78.2 Plan: * Treatment: 2. L umbar disc disease with radiculopathy I maging: MRI LUMBAR SPINE NO CONTRAST Notes: pending diagnstic testing, THE ORDER HAS BEEN FAXED TO [facility] FOR SCHEDULING 3. F oot drop, left I maging: MRI LUMBAR SPINE NO CONTRAST Notes: pending diagnostic testing 4. P rediabetes Notes: stable, no need for medication at this time, will contiue to monitor 5. M ixed hyperlipidemia Continue Atorvastatin Calcium Tablet, 20 MG, TAKE 1 TABLET BY MOUTH EVERY DAY. Notes: stable, will continue current regiment * Procedure Codes: * * Sign off status: Completed true * Provider: Madan Acosta MD Date: 0 01/09/2025 Generated for Navjot mccall/Janay/Tanoitting on: 1 11/03/2024 07:51 AM EST History and Physical Notes * HPI (History of Present Illness) Category Sub-Category Detail Notes Category Not es Symptom(s) patient is a 69 yo male here for 6 month follow up visit, as well as follow up of recent ER visits. Examination Category Sub-Category Detail Notes Category Not es General Examination GENERAL APPEARANCE: alert, w ell hydrated, in no distress HEAD: normocephalic HEART: no murmurs, rubs, ga llops, regular rate and rhythm LUNGS: no wheezes, rales, r honchi, good air movement, clear to auscultation bilaterally NEUROLOGIC: abnormal with 60%los s of dorsiflexion SKIN: good turgor
--- OUTSIDE RECORDS SUMMARY | 2025-01-12 03:57 | XMS_ITS ---
Author Organization Blue Acosta MD Address [address] [place] [address] [place] [phone] Care Team Providers Care Americanization Teacher Name Role Phone Blue Acosta Primary Care Provider REASON FOR VISIT MRI order Encounters Encounter Location Date Provider Diagnosis Blue Acosta MD [address] [place] [address] [place] [phone] 01/12/2025 Blue Acosta Plan Of Treatment Next Appt Details Provider Name:Blue garrido, 09/15/2025 09:00:00 AM, [address] [place] [address], [address], [phone], Provider Name:Blue garrido, 01/18/2026 07:30:00 AM, [address] [place] [address], [address], [phone], Provider Name:Blue garrido, 01/25/2026 09:00:00 AM, [address] [place] [address], [address], [phone], Provider Name:Blue garrido, 07/12/2026 07:00:00 AM, [address] [place] [address], [phone], Provider Name:Blue garrido, 07/19/2026 08:30:00 AM, [address] [place] [address], [phone], Progress Notes * Mahin AMBROCIO GDOB:[birth year] (69 yo M)Acc No.[id number]:01/12/2025 Patient: Mahin LAWRENCE :1955 A ge:69 Y S ex:Male Address:[address] [place] [phone] * true * Date: Generated for Navjot mccall/Janay/Tanoitting on: 11/03/2024 07:54 AM EST
--- OUTSIDE RECORDS SUMMARY | 2025-01-13 09:52 | XMS_ITS ---
Author Organization Blue Acosta MD Address [address] [place] [address] [place] [phone] Care Team Providers Care Flight Attendant/Inflight Manager Name Role Phone Blue Acosta Primary Care Provider REASON FOR VISIT Repeat CXR Encounters Encounter Location Date Provider Diagnosis Blue Acosta MD [address] [place] [phone] 01/13/2025 Blue Acosta Pleural effusion J90 Assessments Encounter Date Diagnosis (ICD Code) Assessment Notes Treatment Notes Treatment Clinical Notes Section Notes 01/13/2025 Pleural effusion (ICD-10 - J90) Order made and put into the future order folder for . Plan Of Treatment Treatment Notes Assessment Notes Pleural effusion Order made and put i nto the future order folder for . Pending Test Test Name Order Date XR chest 2V 01/13/2025 Next Appt Details Provider Name:Blue garrido, 09/15/2025 09:00:00 AM, [address] [place] [address], [address], [phone], Provider Name:Blue garrido, 01/18/2026 07:30:00 AM, [address] [place] [address], [address], [phone], Provider Name:Blue garrido, 01/25/2026 09:00:00 AM, [address] [place] [address], [address], [phone], Provider Name:Blue garrido, 07/12/2026 07:00:00 AM, [address], [address], [place], [place], [phone], Provider Name:Blue Arechiga ier, 07/19/2026 08:30:00 AM, [address], [address], [place], [place], [phone], Progress Notes * Mahin AMBROCIO GDOB:[birth year] (69 yo M)Acc No.[id number]:01/13/2025 Patient: Yanick COLEMANMahin MORLEY :1955 A ge:69 Y S ex:Male Address:[address] [place] [address] Subjective: * Chief Complaints: * R epeat CXR * Medical History: * Surgical History: * Hospitalization/Major Diagno stic Procedure: * Medications: Objective: * Vitals: * Physical Examination: Assessment: * Assessment: 1. P leural effusion - J90 Plan: * Treatment: * Procedure Codes: * true * Date: Generated for Navjot mccall/Janay/eTravismitting on: 11/03/2024 07:52 AM EST
--- OUTSIDE RECORDS SUMMARY | 2025-03-20 04:30 | XMS_ITS ---
Author Organization [facility] Address [address] [place] [address] Care Team Providers Care Roving Department Supervisor Name Role Phone Blue Acosta MD Primary Care Provider Corby Michel [phone] REASON FOR VISIT screening Encounters Encounter Location Date Provider Diagnosis [facility] Outpatient [address] [place] [id number] 03/20/2025 Corby Sanchez Plan Of Treatment No Information Progress Notes * KYRIE JORGE GDOB:[birth year] (69 yo M)Acc No.[id number]:03/20/2025 COLON WITH MAC Patient: KYRIE LAWRENCE Provider: Del Sanchez MD :1955 A ge:69 Y S ex:Male Date:03/20/2025 Address:[address] [place], [place] [phone] Pcp:Blue Acosta MD Subjective: * Chief Complaints: * S creening * The named appointment provid er may or may not be the originator of this progress note, and it is not deemed complete until electronically signed by the appointment provider. Sign off status: Pending * Provider: Del Sanchez MD Date: 0 03/20/2025 Generated for Brandoni ng/Favidyag/eTransmitting on: 1 11/03/2024 07:53 AM EST
--- OUTSIDE RECORDS SUMMARY | 2025-03-30 08:10 | XMS_ITS ---
Author Organization [facility] Address [address] [place] [address] Care Team Providers Care Geneticist Name Role Phone Blue Acosta MD Primary Care Provider Corby Michel [phone] Encounters Encounter Location Date Provider Diagnosis [facility] [place] [address] [place] [id number] 03/30/2025 Corby Sanchez Colon cancer scree ascencion Z12.11 ; Personal history of adenomatous and serrated colon polyps Z86.0101 ; Diverticulosis of large intestine without perforation or abscess without bleeding K57.30 and Other hemorrhoids K64.8 Assessments Encounter Date Diagnosis (ICD Code) Assessment Notes Treatment Notes Treatment Clinical Notes Section Notes 03/30/2025 Colon cancer screening (ICD-10 - Z12.11) 03/30/2025 Personal history of adenomatous and serrated colon polyps (ICD-10 - Z86.0101) 03/30/2025 Diverticulosis of large intestine without perforation or abscess without bleeding (ICD-10 - K57.30) 03/30/2025 Other hemorrhoids (ICD-10 - K64.8) Plan Of Treatment No Information Progress Notes * KYRIE JORGE GDOB:[birth year] (69 yo M)Acc No.[id number]:03/30/2025 COLON WITH MAC Patient: Yanick COLEMANPEYMAN KYRIE G Provider: Del Sanchez MD :1955 A ge:69 Y S ex:Male Date:03/30/2025 Address:[address] [place], [place] [phone] Pcp:Blue Acosta MD Assessment: * Assessment: 1. C olon cancer screening - Z12.11 (Primary) 2 . P ersonal history of adenomatous and serrated colon polyps - Z86.0101 3 . D iverticulosis of large intestine without perforation or abscess without bleeding - K57.30 4 . O ther hemorrhoids - K64.8 Plan: * Procedure Codes: 4 5378 DIAGNOSTIC [id number] INTRVL 3+YRS PTS CLNSCP [id number] RCMND FLW-UP 10 YRS DOCD, Modifiers: 1P Billing Information: * Procedure Codes: 83598 DIAGNOSTIC COLONOSCOPY. 0529F INTRVL 3+YRS PTS CLNSCP DOCD. 0528F RCMND FLW-UP 10 YRS DOCD. Modifiers: 1P * The named appointment provid er may or may not be the originator of this progress note, and it is not deemed complete until electronically signed by the appointment provider. Sign off status: Pending * Provider: Del Sanchez MD Date: 0 03/30/2025 Generated for Navjot mccall/Janay/Dietersmitting on: 1 11/03/2024 07:53 AM EST
--- OUTSIDE RECORDS SUMMARY | 2025-07-10 02:00 | XMS_ITS ---
Author Organization Blue Acosta MD Address [address] [place], [place] [phone] Care Team Providers Care Owner Oral Surgeon Name Role Phone Blue Acosta Primary Care Provider [phone] Results Component Value Reference Range Notes Complete Blood Count Auto Di ff Reviewed date:07/10/2025 12:29:22 PM Interpretation: Performing Lab:[facility], [address] [place] [phone] Notes/Report: White Blood Count 10.2 4.8-10.8 X10*3/uL Red Blood Count 4.47 4.60-5.80 X10*6/uL Hemoglobin 13.5 14.0-18.0 g/dl Hematocrit 40.5 42.0-52.0 % Mean Corpuscular Volume 90.6 80.0-98.0 fL Mean Corpuscular Hemoglobin 30.2 27.0-33.0 pg Mean Corpuscular HGB Conc 33.3 31.0-36.0 g/dl Red Cell Distribution Width 12.1 11.0-16.0 % Platelet Count 204 160-400 X10*3/uL Mean Platelet Volume 10.4 9.4-12.4 fL Neutrophils Percent Auto 55.5 45-73 % Imm Gran Pct Auto 0.3 0.0-0.4 % Lymphocytes Percent Auto 27.4 20-40 % Monocytes Percent Auto 11.7 2-11 % Eosinophils Percent Auto 4.4 0-4 % Basophils Percent Auto 0.7 0-2 % NRBC Pct Auto 0.0 0.0-0.2 /100WBC Neutrophils Absolute Auto 5.7 2.0-8.3 x10*3/u L Imm Gran Abs Auto 0.03 0.00-0.03 X10*3/uL Lymphocytes Absolute Auto 2.8 1.2-4.9 X10*3/u L Monocytes Absolute Auto 1.2 0.1-1.2 X10*3/uL Eosinophils Absolute Auto 0.5 0.0-0.4 X10*3/u L Basophils Absolute Auto 0.1 0.0-0.2 X10*3/uL NRBC Abs Auto 0.000 0.0-0.012 X10*3/uL Lipid Panel Reviewed date:07/10/2025 12:29:39 PM Interpretation: Performing Lab:[address] [phone] Notes/Report: Triglycerides 98 <150 mg/dL Desirable Triglyceride: less than 150 mg/dL Borderline High Triglyceride 150-199 mg/dL High Triglyceride: 200-499 mg/dL Very High Triglyceride: greater than or equal to 5OO mg/dL Cholesterol 118 <200 mg/dL Desirable Cholesterol: less than 200 mg/dL Borderline High Cholesterol: 200-239 mg/dL High Cholesterol: greater than 239 mg/dL LDL Cholesterol Calculated 62 <100 mg/dL Desirable LDL: less than 100 mg/dL Near Optimal/Above Optimal LDL: 110-129 mg/dL Borderline High LDL: 130-159 mg/dL High LDL: 160-189 mg/dL Very High LDL: greater than or equal to 190 mg/dL HDL Cholesterol 37 >40 mg/dL Desirable HDL: greater than 40 mg/dL Note: This HDL assay may give artificially low results in patients with liver disease. PSA,Total (Free>4and<10) Reviewed date:07/10/2025 12:29:01 PM Interpretation: Performing Lab:[facility], [address] [place] [phone] Notes/Report: PSA,Total (Free>4and<10) 0.26 0.00-4.00 ng/mL A Free PSA was not [...] [place] Alinity i Chemiluminescent Microparticle Immunoassay (CMIA) Hemoglobin A1c Reviewed date:07/10/2025 12:28:51 PM Interpretation: Performing Lab:[facility], [address] [place] [phone] Notes/Report: Hemoglobin A1c % 6.1 <6.0 % Hemoglobin A1C Reference Range Adults: 4.8 - 6.0 % Non diabetic: < 6.0 % Goal: < 7.0 % Additional Action Suggested: > 8.0 % Note: Hemoglobin A1c results are invalid for patients with abnormal amounts of HbF. Blood transfusions may impact the HbA1c concentration in the patient sample. Estimated Average Glucose 128 eAG = Estimated average glucose which is %A1C expressed as average glucose, using the formula of the W8B-[place] Average Glucose study (ADAG), Diabetes Care, Vol.31,#8, May. 2007 REASON FOR VISIT FASTING LABS Immunizations Vaccine Route Administration Date Status Comme nts Influenza High Dose IM Intramuscular 07/10/2025 Administer ed Encounters Encounter Location Date Provider Diagnosis Blue Acosta MD [address] [place], [place] [phone] 07/10/2025 Blue Acosta Mixed hyperlipidemia E78.2 ; Encounter for administration of vaccine Z23 ; Essential hypertension I10 and Prediabetes R73.09 Assessments Encounter Date Diagnosis (ICD Code) Assessment Notes Treatment Notes Treatment Clinical Notes Section Notes 07/10/2025 Mixed hyperlipidemia (ICD-10 - E78.2) 07/10/2025 Encounter for administration of vaccine (ICD-10 - Z23) 07/10/2025 Essential hypertension (ICD-10 - I10) 07/10/2025 Prediabetes (ICD-10 - R73.09) Plan Of Treatment Pending Test Test Name Order Date Comprehensive [employer]. Panel Fast 5 Microalbumin, Random 07/10/2025 UA ClnCatch+Micro w/rflx Cult 07/10/2025 Next Appt Details Provider Name:Blue garrido, 09/15/2025 09:00:00 AM, [address], [address], [place], [place], [phone], Provider Name:Blue Arechiga ier, 01/18/2026 07:30:00 AM, [address], [address], [place], [phone], Provider Name:Blue Arechiga ier, 01/25/2026 09:00:00 AM, [address], [address], [place], [phone], Provider Name:Blue Arechiga ier, 07/12/2026 07:00:00 AM, [address], [address], [place], [phone], Provider Name:Blue Arechiga ier, 07/19/2026 08:30:00 AM, [address], [address], [place], [phone], Progress Notes * Mahin AMBROCIO GDOB:[birth year] (69 yo M)Acc No.[id number]:07/10/2025 Progress Note Patient: Mahin LAWRENCE Provider: Madan Acosta MD :1955 A ge:69 Y S ex:Male Date:07/10/2025 Address:[address] [place], [place] [phone] Subjective: * Chief Complaints: * 1 . FASTING LABS. * Medical History: Objective: * Vitals: Assessment: * Assessment: 1. E ncounter for administration of vaccine - Z23 (Primary) 2 . M ixed hyperlipidemia - E78.2 3 . E ssential hypertension - I10 4 . P rediabetes - R73.09 Plan: * Treatment: 2. E ssential hypertension L AB: Comprehensive [employer]. Panel Fast L AB: Microalbumin, Random L AB: UA ClnCatch+Micro w/rflx Cult L AB: Complete Blood Count Auto Diff (Collection Date & Time - 07/10/2025 07:00 AM) L AB: Lipid Panel (Collection Date & Time - 07/10/2025 07:00 AM) L AB: PSA,Total (Free>4and<10) (Collection Date & Time - 07/10/2025 07:00 AM) L AB: Hemoglobin A1c (Collection Date & Time - 07/10/2025 07:00 AM) 3. P rediabetes L AB: Comprehensive [employer]. Panel Fast L AB: Microalbumin, Random L AB: UA ClnCatch+Micro w/rflx Cult L AB: Complete Blood Count Auto Diff (Collection Date & Time - 07/10/2025 07:00 AM) L AB: Lipid Panel (Collection Date & Time - 07/10/2025 07:00 AM) L AB: PSA,Total (Free>4and<10) (Collection Date & Time - 07/10/2025 07:00 AM) L AB: Hemoglobin A1c (Collection Date & Time - 07/10/2025 07:00 AM) * Immunizations: Influenza High Dose : 0.5 mL (Dose No:1) (Route: Intramuscular) given by Sena Warner , Office Staff on Left Deltoid * Procedure Codes: 3 6415 VENIPUNCT, ROUTINE*, 05179 FLU VACC PRSV FREE INC ANTIG, G0008 ADMN FLU VAC NO FEE SCHED SAME DAY * * The named appointment provid er may or may not be the originator of this progress note, and it is not deemed complete until electronically signed by the appointment provider. Sign off status: Pending * Provider: Madan Acosta MD Date: 0 07/10/2025 Generated for Navjot mccall/Janay/Tanoitting on: 1 11/03/2024 07:52 AM EST
--- OUTSIDE RECORDS SUMMARY | 2025-07-16 03:00 | XMS_ITS ---
Author Organization Blue Acosta MD Address [address] [place], [place] [id number] Care Team Providers Care Assisted Living Administrator Name Role Phone Blue Acosta Primary Care Provider Allergies Allergen (clinical drug ingredient) Drug/Non Drug Allergy documented on EMR Reaction Allergy Type Onset Date Status zolpidem ambien (uncoded) hallucinations Allergy Active amoxil (uncoded) rash Allergy Act dick Results Component Value Reference Range Notes Microalbumin, Random Reviewed date:07/16/2025 12:43:31 PM Interpretation: Performing Lab:[facility], [address] [place] [phone] Notes/Report: Creatinine Urine 91.72 Microalbumin Urine 8.0 Microalbum/Creatinine Ratio Ur 8.7 <30 ug/mg cr Albumin/Creatinine Ratio Reference Ranges: Normal: < 30 ug/mg creatinine Microalbuminuria: 30 - 300 ug/mg creatinine Clinical Albuminuria: > 300 ug/mg creatinine UA ClnCatch+Micro w/rflx Cul t Reviewed date:07/16/2025 12:43:48 PM Interpretation: Performing Lab:[facility], [address] [place] [phone] Notes/Report: Urine, Clean Catch Color Urine Yellow Appearance Urine Clear PH 6.5 5.0-9.0 Glucose Urine UA Negative Negative mg/dL Urine Blood Negative Negative Specific Dumas - Urine 1.015 1.005-1.025 Urine Protein Negative Neg-Trace mg/dL Urine Ketones Negative Negative mg/dL Nitrite Urine Negative Negative Leukocyte Esterase Urine Negative Negative RBC Urine 0-2 0-2 /HPF WBC Urine 0-5 0-5 /HPF Squamous Epithelial Cell Urine 0-2 0-2 /HPF Bacteria Urine None Seen None Seen Hyaline Casts Urine 0-2 0-2 /LPF REASON FOR VISIT review labs Medications Medication SIG (Take, Route, Frequency, Duration) Notes Start Date End Date Status Alfuzosin HCl ER 10 MG 1 tablet immediat brandon after the same meal Orally Once a day Active Xarelto 20 MG 1 tablet with food Orally Once a day Active Metoprolol Succinate ER 50 MG TAKE 1 TABLET BY MOUTH EVERY DAY Active Atorvastatin Calcium 20 MG TAKE 1 TABLET BY MOUTH EVERY DAY Active predniSONE 20 MG 2 tabs Orally Once a day Active Nitrostat 0.4 MG 1 tablet under the tongue and allow to dissolve as needed Sublingual every 15 min for pain. may repeat time 3 for 30 days 05/16/2012 Not-Taking ProAir HFA 108 (90 Base) MCG/ACT 2 puffs as needed Inhalation every 4 hrs for 30 days 11/20/2016 Not-Taking diazePAM 5 MG 1-2 tablet as needed Orally every 8 hours Not-Taking Mounjaro 2.5 MG/0.5ML as directed Subcutaneous weekly for 30 days 07/16/2025 Active Mupirocin 2 % 1 application Externally Three times a day for 10 days 01/24/2021 Not-Taking Meclizine HCl 25 MG TAKE 1 TABLET BY DARIA TH EVERY DAY NEEDED for 30 Not-Taking Cyclobenzaprine HCl 10 MG 1 tablet at be dtime as needed Orally Once a day Not-Taking Morphine Sulfate 15 MG 1 tablet as neede d Orally every 4 hrs Not-Taking Triamcinolone Acetonide 0.5 % APPLY TO AFFECTED AREA TWICE A DAY EXTERNALLY FOR 30 DAYS for 30 Active Celecoxib 200 MG TAKE 1 CAPSULE BY MOUTH EVERY DAY for 90 Active Lisinopril 20 MG TAKE 1 TABLET BY DARIA TH EVERY DAY Active Flecainide Acetate 100 MG 1 tablet Orall y twice a day Active levoFLOXacin 500 MG 1 tablet Orally Once a day Not-Taking Social History Tobacco Use: Social History [...] Problem Status W/U Status Risk Notes Problem Sinusitis (42439317) Sinusitis (J32.9) Active confirmed Vital Signs Blood pressure systolic 162 mm Hg 07/16/20 25 Blood pressure diastolic 80 mm Hg 025 Height 73 in 07/16/2025 Weight 344 lbs 07/16/2025 BMI 45.38 kg/m2 07/16/2025 weight is up 6 pounds since 01-09-25 Encounters Encounter Location Date Provider Diagnosis Blue Acosta MD [address] [place] [address] [place] [phone] 07/16/2025 Blue Acosta Prediabetes R73.09 ; Essential hypertension I10 ; Sinusitis J32.9 ; Mixed hyperlipidemia E78.2 ; Paroxysmal atrial fibrillation I48.0 and Depression screening Z13.31 Assessments Encounter Date Diagnosis (ICD Code) Assessment Notes Treatment Notes Treatment Clinical Notes Section Notes 07/16/2025 Prediabetes (ICD-10 - R73.09) patient verbalized understanding of medication and directions for use 07/16/2025 Essential hypertension (ICD-10 - I10) doing well, will continue current regiment 07/16/2025 Sinusitis (ICD-10 - J32.9) not having symptoma and ears are normal 07/16/2025 Mixed hyperlipidemia (ICD-10 - E78.2) doing well, will contnue current regiment 07/16/2025 Paroxysmal atrial fibrillation (ICD-10 - I48.0) stale, will continue current regiment 07/16/2025 Depression screening (ICD-10 - Z13.31) negative screen Plan Of Treatment Medication Medication Name Sig Start Date Stop Date Notes Alfuzosin HCl ER 10 MG 1 tablet immediat brandon after the same meal Orally Once a day Xarelto 20 MG 1 tablet with food O rally Once a day Metoprolol Succinate ER 50 MG TAKE 1 TAB LET BY MOUTH EVERY DAY Atorvastatin Calcium 20 MG TAKE 1 TABLET BY MOUTH EVERY DAY predniSONE 20 MG 2 tabs Orally Once a day Mounjaro 2.5 MG/0.5ML as directed Subcut aneous weekly for 30 days 07/16/2025 Lisinopril 20 MG TAKE 1 TABLET BY DARIA TH EVERY DAY Treatment Notes Assessment Notes Prediabetes patient verbalized u nderstanding of medication and directions for use Essential hypertension doing well, will continue current regiment Sinusitis not having symptoma and ears are normal Mixed hyperlipidemia doing well, will co ntnue current regiment Paroxysmal atrial fibrillation stalaura, wi ll continue current regiment Depression screening negative screen Next Appt Details Follow Up: 4 Weeks, Reason: Provider Name:Blue Arechiga ier, 09/15/2025 09:00:00 AM, [address] [place] [address], [address] [place] [address], [phone], Provider Name:Blue Arechiga ier, 01/18/2026 07:30:00 AM, [address] [place] [address], [address], [phone], Provider Name:Blue reyr, 01/25/2026 09:00:00 AM, [address] [place] [address], [place] [address], [place], [place], [phone], Provider Name:Blue Arechiga ier, 07/12/2026 07:00:00 AM, [address] [place] [address], [address], [phone], Provider Name:Blue Arechiga ier, 07/19/2026 08:30:00 AM, [address] [place] [address], [address], [phone], Progress Notes * Mahin AMBROCIO GDOB:[birth year] (69 yo M)Acc No.[id number]:07/16/2025 Patient: Yanick COLEMANMahin MORLEY Provider: Madan Acosta MD :1955 A ge:69 Y S ex:Male Date:07/16/2025 Address:[address] [place], [place] [id number] Subjective: * Chief Complaints: * R eview [...] at all, T otal Score 0 . I nterpretation and Intervention D epression Screening Findings N egative, F ollow-Up for Depression : review of PHQ-9 found negative result, no follow-up needed. C ommunication Needs: Communication Needs D oes [...] N one. S ymptom(s): patient is a 69 yo male here for review of recent labs and follow up of chronnic issues h as sinus infection. was put on levaquin but there is interaction. * ROS: G eneral/Constitutional: Change in appetite d enies. C hills d enies. F ever d enies. O phthalmologic: Blurred vision d enies. D ischarge d enies. P ain d enies. E NT: Decreased hearing d enies. S ore throat d enies.?Swollen glands d enies. E ndocrine: Cold intolerance d enies. E xcessive thirst d enies. H eat intolerance d enies. W eight loss d enies. R espiratory: Cough d enies. S hortness of breath at rest d enies. S hortness of breath with exertion d enies. W heezing d enies. C ardiovascular: Chest pain at rest d enies. C hest pain with exertion?denies. I rregular heartbeat d enies. S hortness of breath d enies. ? G astrointestinal: Abdominal pain d enies. C hange in bowel habits d enies. D iarrhea d enies. N ausea d enies. R ectal bleeding d enies. V omiting d enies . G enitourinary: Blood in urine d enies. D ifficulty urinating d enies. F requent urination d enies. M usculoskeletal: Painful joints d enies. W eakness d enies. ? S kin: Dry skin d enies. I tching d enies. D enies?Mole(s), changes in moles, new moles or any lesions of concern. D enies P hotosensitivity. R darwin d enies. N eurologic: Dizziness d enies. F ainting d enies. H eadache?denies. * Medical History: * Surgical History: * Hospitalization/Major Diagno stic Procedure: * Family History: F ather: alive 94 yrs, diagnosed with Diabetes. M other: 45 [...] , I nterpretation N egative. M iscellaneous: C affeine: no. Children: yes. Community involvements: no. Exercise: yes, walks QD half an hour. Home smoke detector use: yes. Housing: renting. Living with: spouse. Marital status: . Occupation: retired. Pets: 1 cat. * Medications: T akingAlfuzosin HCl ER 10 MG Tablet Extended Release 24 Hour 1 tablet immediately after the same meal Orally Once a day predniSONE 20 MG Tablet 2 tabs Orally Once a day Xarelto 20 MG Tablet 1 tablet with food Orally Once a day Flecainide Acetate 100 MG Tablet 1 tablet Orally twice a day Metoprolol Succinate ER 50 MG Tablet Extended Release 24 Hour TAKE 1 TABLET BY MOUTH EVERY DAY Celecoxib 200 MG Capsule TAKE 1 CAPSULE BY MOUTH EVERY DAY Triamcinolone Acetonide 0.5 % Cream APPLY TO AFFECTED AREA TWICE A DAY EXTERNALLY FOR 30 DAYS Atorvastatin Calcium 20 MG Tablet TAKE 1 TABLET BY MOUTH EVERY DAY Lisinopril 20 MG Tablet TAKE 1 TABLET BY MOUTH EVERY DAY Taking Alfuzosin HCl ER 10 MG Tablet Extended Release 24 Hour 1 tablet immediately after the same meal Orally Once a day Taking predniSONE 20 MG Tablet 2 tabs Orally Once a day Taking Xarelto 20 MG Tablet 1 tablet with food Orally Once a day Taking Flecainide Acetate 100 MG Tablet 1 tablet Orally twice a day Taking Metoprolol Succinate ER 50 MG Tablet Extended Release 24 Hour TAKE 1 TABLET BY MOUTH EVERY DAY Taking Celecoxib 200 MG Capsule TAKE 1 CAPSULE BY MOUTH EVERY DAY Taking Triamcinolone Acetonide 0.5 % Cream APPLY TO AFFECTED AREA TWICE A DAY EXTERNALLY FOR 30 DAYS Taking Atorvastatin Calcium 20 MG Tablet TAKE 1 TABLET BY MOUTH EVERY DAY Taking Lisinopril 20 MG Tablet TAKE 1 TABLET BY MOUTH EVERY DAY Not-Taking/PRNlevoFLOXacin 500 MG Tablet 1 tablet Orally Once a day Morphine Sulfate 15 MG Tablet 1 tablet as needed Orally every 4 hrs Cyclobenzaprine HCl 10 MG Tablet 1 tablet at bedtime as needed Orally Once a day Meclizine HCl 25 MG Tablet TAKE 1 [...] min for pain. may repeat time 3 Not-Taking/PRN levoFLOXacin 500 MG Tablet 1 tablet Orally Once a day Not-Taking/PRN Morphine Sulfate 15 MG Tablet 1 tablet as needed Orally every 4 hrs Not-Taking/PRN Cyclobenzaprine HCl 10 MG Tablet 1 tablet at bedtime as needed Orally Once a day Not-Taking/PRN Meclizine HCl 25 MG Tablet TAKE [...] min for pain. may repeat time 3 DiscontinuedGabapentin 300 MG Capsule 3 capsules qhs Orally Once a day hs traMADol HCl 50 MG Tablet 1 tablet Orally Once a day Medication List reviewed and reconciled with the patientDiscontinued Gabapentin 300 MG Capsule 3 capsules qhs Orally Once a day hs Discontinued traMADol HCl 50 MG Tablet 1 tablet Orally Once a day Medication List reviewed and reconciled with the patient * Allergies: a moxil: rashambien: hallucinationsyes[Allergies Verified] Objective: * Vitals: H t: 73, Wt: 344, BMI:45.38, BP:162/80, Wt-k.04. weight is up 6 pounds since 01-09-25. * P ast Orders: L ab:Complete Blood Count Auto Diff (Order Date - 07/10/2025) (Collection Date & Time - 07/10/2025 07:00 AM) Value Reference Range White Blood Count 10.2 4.8-10.8 - X10*3/uL Red Blood Count 4.47 L 4.60-5.80 - X10*6/uL Hemoglobin 13.5 L 14.0-18.0 - g/dl Hematocrit 40.5 L 42.0-52.0 - % Mean Corpuscular Volume 90.6 80.0-98.0 - fL Mean Corpuscular Hemoglobin 30.2 27.0-33.0 - pg Mean Corpuscular HGB Conc 33.3 31.0-36.0 - g/ dl Red Cell Distribution Width 12.1 11.0-16.0 - % Platelet Count 204 160-400 - X10*3/uL Mean Platelet Volume 10.4 9.4-12.4 - fL Neutrophils Percent Auto 55.5 45-73 - % Imm Gran Pct Auto 0.3 0.0-0.4 - % Lymphocytes Percent Auto 27.4 20-40 - % Monocytes Percent Auto 11.7 H 2-11 - % Eosinophils Percent Auto 4.4 H 0-4 - % Basophils Percent Auto 0.7 0-2 - % NRBC Pct Auto 0.0 0.0-0.2 - /100WBC Neutrophils Absolute Auto 5.7 2.0-8.3 - x10* 3/uL Imm Gran Abs Auto 0.03 0.00-0.03 - X10*3/uL Lymphocytes Absolute Auto 2.8 1.2-4.9 - X10* 3/uL Monocytes Absolute Auto 1.2 0.1-1.2 - X10*3/ uL Eosinophils Absolute Auto 0.5 H 0.0-0.4 - X10* 3/uL Basophils Absolute Auto 0.1 0.0-0.2 - X10*3/ uL NRBC Abs Auto 0.000 0.0-0.012 - X10*3/uL L ab:Lipid Panel (Order Date - 07/10/2025) (Collection Date & Time - 07/10/2025 07:00 AM) Value Reference Range Triglycerides 98 <150 - mg/dL Cholesterol 118 <200 - mg/dL LDL Cholesterol Calculated 62 <100 - mg/dL HDL Cholesterol 37 L >40 - mg/dL L ab:PSA,Total (Free>4and<10) (Order Date - 07/10/2025) (Collection Date & Time - 07/10/2025 07:00 AM) Value Reference Range PSA,Total (Free>4and<10) 0.26 0.00-4.00 - ng/ mL L ab:Hemoglobin A1c (Order Date 07/10/2025) (Collection Date & Time - 07/10/2025 07:00 AM) Value Reference Range Hemoglobin A1c % 6.1 H <6.0 - % Estimated Average Glucose 128 - mg/dL L ab:Comprehensive Met. Panel (Order Date - 07/10/2025) (Collection Date & Time - 07/10/2025 07:00 AM) Value Reference Range Sodium 142 135-145 - mmol/L Bilirubin Total 0.6 0.0-1.0 - mg/dL Aspartate Amino Transferase 29 5-37 - U/L Alanine Aminotransferase 27 0-40 - U/L Total Protein 7.1 6.5-8.0 - g/dL Albumin Level 4.1 3.5-5.0 - g/dL Alkaline Phosphatase 78 39-117 - U/L Potassium 4.2 3.3-5.1 - mmol/L Chloride 110 H 96-108 - mmol/L Carbon Dioxide 24 22-29 - mmol/L Anion Gap 12 12-20 - Blood Urea Nitrogen 19 H 9-16 - mg/dL Creatinine 0.92 0.5-1.4 - mg/dL Estimated Glomerular Filt Rate > 60 - Glucose Random 120 H 60-115 - mg/dL Calcium 8.8 8.4-10.2 - mg/dL * Examination: G eneral Examination: GENERAL APPEARANCE: w ell developed, well nourished, in no acute distress. HEAD: n ormocephalic, atraumatic. EYES: p upils equal, round, reactive to light and accommodation, sclera non-icteric. EARS: n ormal. ORAL CAVITY: m ucosa moist. THROAT: c lear. NECK/THYROID: n cassie supple, full range of motion, no cervical lymphadenopathy, no bruits. SKIN: w arm and dry, no suspicious lesions. HEART: r egular rate and rhythm, S1, S2 normal, no murmurs.? LUNGS: c lear to auscultation bilaterally. ABDOMEN: s oft, nontender, nondistended, bowel sounds present, normal, no organomegaly , no masses palpable. RECTAL EXAM: n ot done just had colonoscopy and had evaluation by urologist. MALE GENITOURINARY: n ot examined. EXTREMITIES: n o clubbing, cyanosis, or edema. NEUROLOGIC: n onfocal, motor strength normal upper and lower extremities, sensory exam intact. Assessment: * Assessment: 1. P rediabetes - R73.09 (Primary) 2 . E ssential hypertension - I10 ? 3 . S inusitis - J32.9 4 . M ixed hyperlipidemia - E78.2 ? 5 . P aroxysmal atrial fibrillation - I48.0 6 . D epression screening - Z13.31 Plan: * Treatment: 2. E ssential hypertension Continue Lisinopril Tablet, 20 MG, TAKE 1 TABLET BY MOUTH EVERY DAY. L AB: Microalbumin, Random (Collection Date & Time - 07/16/2025 08:00 AM) L AB: UA ClnCatch+Micro w/rflx Cult (Collection Date & Time - 07/16/2025 08:00 AM) Notes: doing well, will continue current regiment 3. S inusitis Continue predniSONE Tablet, 20 MG, 2 tabs, Orally, Once a day; C ontinue Alfuzosin HCl ER Tablet Extended Release 24 Hour, 10 MG, 1 tablet immediately after the same meal, Orally, Once a day.? Notes: not having symptoma and ears are normal 4. M ixed hyperlipidemia Continue Atorvastatin Calcium Tablet, 20 MG, TAKE 1 TABLET BY MOUTH EVERY DAY. Notes: doing well, will contnue current regiment 5. P aroxysmal atrial fibrillation Continue Xarelto Tablet, 20 MG, 1 tablet with food, Orally, Once a day; C ontinue Metoprolol Succinate ER Tablet Extended Release 24 Hour, 50 MG, TAKE 1 TABLET BY MOUTH EVERY DAY. Notes: stale, will continue current regiment 6. D epression screening Notes: negative screen * Procedure Codes: G 2211 Complex e/m visit add on * Follow Up: 4 Weeks * * Sign off status: Completed true * Provider: Madan Acosta MD Date: Generated for Navjot mccall/Janay/Tanoitting on: 11/03/2024 07:54 AM EST History and Physical Notes * HPI (History of Present Illness) Category Sub-Category Detail Notes Category Not es Symptom(s) patient is a 69 yo male here for review of recent labs and follow up of chronnic issues has sinus infection. was put on levaquin but there is interaction Depression Screening PHQ-9 Little inte rest or [...] way: Not at all Total Score: 0 Interpretation and Intervention Depression [place] Findings: Negative Follow-Up for Depression: : review of PH Q-9 found negative result, no follow-up needed SDOH Questions SDOH Questions In the past [...] Category Not es General Examination GENERAL APPEARANCE: well dev eloped, well nourished, in no acute distress HEAD: normocephalic, atrau matic EYES: pupils equal, round, reactive to light and accommodation, sclera non-icteric EARS: normal THROAT: clear NECK/THYROID: neck supple, full ra nge of motion, no cervical lymphadenopathy, no bruits HEART: regular rate and rhy thm, S1, S2 normal, no murmurs LUNGS: clear to auscultatio n bilaterally ABDOMEN: soft, nontender, non distended, bowel sounds present, normal, no organomegaly , no masses palpable NEUROLOGIC: nonfocal, motor stre ngth normal upper and lower extremities, sensory exam intact SKIN: warm and dry, no alireza picious lesions EXTREMITIES: no clubbing, cyanosi s, or edema MALE GENITOURINARY: not examined RECTAL EXAM: not done just had co lonoscopy and had evaluation by urologist ORAL CAVITY: mucosa moist
--- OUTSIDE RECORDS SUMMARY | 2025-08-04 08:25 | XMS_ITS ---
Author Organization Blue Acosta MD Address [address] [place] [address] [place] [address] [phone] Care Team Providers Care Transonic Engineer Name Role Phone Blue Acosta Primary Care Provider REASON FOR VISIT ER Encounters Encounter Location Date Provider Diagnosis Blue Acosta MD [address] [place] [address] [place] [address] [phone] 08/04/2025 Blue Acosta Plan Of Treatment Next Appt Details Provider Name:Blue garrido, 09/15/2025 09:00:00 AM, [address] [place] [address], [address], [phone], Provider Name:Blue garrido, 01/18/2026 07:30:00 AM, [address] [place] [address], [address], [phone], Provider Name:Blue garrido, 01/25/2026 09:00:00 AM, [address] [place] [address], [address], [phone], Provider Name:Blue garrido, 07/12/2026 07:00:00 AM, [address] [place] [address], [address], [phone], Provider Name:Blue garrido, 07/19/2026 08:30:00 AM, [address] [place] [address], [address], [phone], Progress Notes * Mahin AMBROCIO GDOB:[birth year] (69 yo M)Acc No.[id number]:08/04/2025 Patient: Mahin LAWRENCE :1955 A ge:69 Y S ex:Male Address:[address] [place], [place] [id number] * true * Date: Generated for Navjot mccall/Janay/Tanoitting on: 11/03/2024 07:52 AM EST
--- OUTSIDE RECORDS SUMMARY | 2025-08-18 04:00 | XMS_ITS ---
Author Organization Blue Acosta MD Address [address] [place], [place] [id number] Care Team Providers Care Spiral Spring Winder Name Role Phone Blue Acosta Primary Care Provider Allergies Allergen (clinical drug ingredient) Drug/Non Drug Allergy documented on EMR Reaction Allergy Type Onset Date Status zolpidem ambien (uncoded) hallucinations Allergy Active amoxil (uncoded) rash Allergy Act dick REASON FOR VISIT 4 WEEK F/U Medications Medication SIG (Take, Route, Frequency, Duration) Notes Start Date End Date Status Morphine Sulfate 15 MG 1 tablet as neede d Orally every 4 hrs Not-Taking Cyclobenzaprine HCl 10 MG 1 tablet at be dtime as needed Orally Once a day Not-Taking Meclizine HCl 25 MG TAKE 1 TABLET BY DARIA TH EVERY DAY NEEDED for 30 Not-Taking Mupirocin 2 % 1 application Externally Three times a day for 10 days 01/24/2021 Not-Taking levoFLOXacin 500 MG 1 tablet Orally Once a day Not-Taking Xarelto 20 MG 1 tablet with food Orally Once a day Active Metoprolol Succinate ER 50 MG TAKE 1 TABLET BY MOUTH EVERY DAY Active Atorvastatin Calcium 20 MG TAKE 1 TABLET BY MOUTH EVERY DAY Active Alfuzosin HCl ER 10 MG 1 tablet immediat brandon after the same meal Orally Once a day Active Flecainide Acetate 100 MG 1 tablet Orall y twice a day Active Celecoxib 200 MG TAKE 1 CAPSULE BY MOUTH EVERY DAY for 90 Active Triamcinolone Acetonide 0.5 % APPLY TO AFFECTED AREA TWICE A DAY EXTERNALLY FOR 30 DAYS for 30 Active Lisinopril 20 MG TAKE 1 TABLET BY DARIA TH EVERY DAY Active Mounjaro 5 MG/0.5ML as directed Subcutaneous weekly for 30 days 07/16/2025 Active diazePAM 5 MG 1-2 tablet as needed Orally every 8 hours Not-Taking ProAir HFA 108 (90 Base) MCG/ACT 2 puffs as needed Inhalation every 4 hrs for 30 days 11/20/2016 Not-Taking Nitrostat 0.4 MG 1 tablet under the tongue and allow to dissolve as needed Sublingual every 15 min for pain. may repeat time 3 for 30 days 05/16/2012 Not-Taking Vital Signs Blood pressure systolic 112 mm Hg 08/18/20 25 Blood pressure diastolic 74 mm Hg 025 Height 73 in 08/18/2025 Weight 330 lbs 08/18/2025 BMI 43.53 kg/m2 08/18/2025 weight is down 14 pounds [facility] 07-16-25 Encounters Encounter Location Date Provider Diagnosis Blue Acosta MD [address] [place] [phone] 08/18/2025 Blue Acosta Prediabetes R73.09 Assessments Encounter Date Diagnosis (ICD Code) Assessment Notes Treatment Notes Treatment Clinical Notes Section Notes 08/18/2025 Prediabetes (ICD-10 - R73.09) doing well, will continue current regiment Plan Of Treatment Medication Medication Name Sig Start Date Stop Date Notes Mounjaro 5 MG/0.5ML as directed Subcutan eous weekly for 30 days 07/16/2025 Treatment Notes Assessment Notes Prediabetes doing well, will con tinue current regiment Next Appt Details Provider Name:Blue garrido, 09/15/2025 09:00:00 AM, [address] [place] [address], Suite [facility], [place], [place], [phone], Provider Name:Blue garrido, 01/18/2026 07:30:00 AM, [address] [place] [address], [place] [address], [place], [place], [phone], Provider Name:Blue garrido, 01/25/2026 09:00:00 AM, [address] [place] [address], [address], [phone], Provider Name:Blue garrido, 07/12/2026 07:00:00 AM, [address] [place] [address], [place], [place], [phone], Provider Name:Blue Arechiga ier, 07/19/2026 08:30:00 AM, [address] [facility], [address], [place], [place], [phone], Progress Notes * Mahin AMBROCIO GDOB:[birth year] (69 yo M)Acc No.[id number]:08/18/2025 Progress Notes Patient: Mahin LAWRENCE Provider: Madan Acosta MD :1955 A ge:69 Y S ex:Male Date:08/18/2025 Address:[address] [place], [place] [id number] Subjective: * Chief Complaints: * 4 WEEK F/U * HPI: S ymptom(s): patient is a 69 yo male here for 4 week follow up visit. * ROS: G eneral/Constitutional: Denies C hills. D enies F atigue. D enies F ever. D enies H eadache. E NT: Denies S ore throat. R espiratory: Denies C ough. D enies S hortness of breath at rest. D enies S hortness of breath with exertion. G astrointestinal: Denies D iarrhea. D enies N ausea. * Medical History: * Surgical History: * Hospitalization/Major Diagno stic Procedure: * Medications: T akingFlecainide Acetate 100 MG Tablet 1 tablet Orally twice a day Celecoxib 200 MG Capsule TAKE 1 CAPSULE BY MOUTH EVERY DAY Triamcinolone Acetonide 0.5 % Cream APPLY TO AFFECTED AREA TWICE A DAY EXTERNALLY FOR 30 DAYS Mounjaro 2.5 MG/0.5ML Solution Auto-injector as directed Subcutaneous weekly Lisinopril 20 MG Tablet TAKE 1 TABLET BY MOUTH EVERY DAY Xarelto 20 MG Tablet 1 tablet with food Orally Once a day Metoprolol Succinate ER 50 MG Tablet Extended Release 24 Hour TAKE 1 TABLET BY MOUTH EVERY DAY Atorvastatin Calcium 20 MG Tablet TAKE 1 TABLET BY MOUTH EVERY DAY Alfuzosin HCl ER 10 MG Tablet Extended Release 24 Hour 1 tablet immediately after the same meal Orally Once a day Taking Flecainide Acetate 100 MG Tablet 1 tablet Orally twice a day Taking Celecoxib 200 MG Capsule TAKE 1 CAPSULE BY MOUTH EVERY DAY Taking Triamcinolone Acetonide 0.5 % Cream APPLY TO AFFECTED AREA TWICE A DAY EXTERNALLY FOR 30 DAYS Taking Mounjaro 2.5 MG/0.5ML Solution Auto-injector as directed Subcutaneous weekly Taking Lisinopril 20 MG Tablet TAKE 1 [...] the same meal Orally Once a day Not-Taking/PRNlevoFLOXacin 500 MG Tablet 1 tablet Orally [...] min for pain. may repeat time 3 DiscontinuedpredniSONE 20 MG Tablet 2 tabs Orally Once a day Medication List reviewed and reconciled with the patientDiscontinued predniSONE 20 MG Tablet 2 tabs Orally Once a day Medication List reviewed and reconciled with the patient * Allergies: a moxil: rashambien: hallucinationsyes[Allergies Verified] Objective: * Vitals: H t: 73, Wt: 330, BMI:43.53, BP:112/74, Wt-k.69. weight is down 14 pounds since 07-16-25. * Examination: G eneral Examination: GENERAL APPEARANCE: a lert, well hydrated, in no distress.? HEART: n o murmurs, rubs, gallops, regular rate and rhythm.? LUNGS: n o wheezes, rales, rhonchi, good air movement, clear to auscultation bilaterally. Assessment: * Assessment: 1. P rediabetes - R73.09 (Primary) Plan: * Treatment: * Procedure Codes: * * Sign off status: Completed true * Provider: Madan Acosta MD Date: 10/18/2024 Generated for Navjot mccall/Janay/Dietersmitting on: 11/03/2024 07:53 AM EST History and Physical Notes * HPI (History of Present Illness) Category Sub-Category Detail Notes Category Not es Symptom(s) patient is a 69 yo male here for 4 week follow up visit Examination Category Sub-Category Detail Notes Category Not es General Examination GENERAL APPEARANCE: alert, w ell hydrated, in no distress HEART: no murmurs, rubs, ga llops, regular rate and rhythm LUNGS: no wheezes, rales, r honchi, good air movement, clear to auscultation bilaterally
--- OUTSIDE RECORDS SUMMARY | 2025-09-03 07:52 | XMS_ITS | Data Portability ---
Author Organization BALDO Vora s, [address] Address [address] [place] [address] Care Team Providers Care Food Vendor Name Role Phone [facility] Primary Care Provider Assessment No assessment recorded. Plan of Treatment Reminders Order Date Submit Date Provider Last Modified By Organization Details Last Modified Time Details Appointments None recorded. Lab rapid SARS CoV 2 Ag, QL IA, respiratory specimen 2022 023 [email or web address] _[facility], [address] [place] [address], [phone], 3 13:13:33 rapid strep group A, throat 2022 023 [email or web address] _[facility], [address] [place] [address], [phone], 3 13:13:33 Referral None recorded. Procedures None recorded. Surgeries None recorded. Imaging None recorded. Medication Orders fluticasone propionate 50 mcg/actuati on nasal spray,suspe nsion 2022 023 [id number], [address] [facility], [place], [address], 3 13:32:31 cetirizine 10 mg tablet 2022 023 [email or web address] [id number], [address] [place], [address], 3 13:32:39 Patient TargetsNo targets recorded. Patient InstructionsNo instructions recorded. Reason for Referral None Reported. Results Created Date Observation Date Name Description Value Unit Range Abnormal Flag Note LastModifiedBy Organization Detail LastModifiedTime 01/27/20 23 01/26/2023 rapid SARS CoV 2 Ag, QL IA, respi rator y speci men Unknown Analyte Normal =Negat dick Not Available [address] [place] [address], [phone], 01/26/2023 12:42:27 01/27/20 23 01/26/2023 rapid SARS CoV 2 Ag, QL IA, respi rator y speci men Unknown Analyte negati ve Not Available [address] [place] [address], [phone], 01/26/2023 12:42:27 01/27/20 23 01/26/2023 rapid strep group A, throa t Unknown Analyte Normal = Negati ve Not Available [address] [place] [address], [phone], 01/26/2023 12:47:49 01/27/2001/26/2023 rapid strep group A, throa t Unknown Analyte negati ve Not Available [address] [place] [address], [phone], 01/26/2023 12:47:49 Result Notes None recorded. Problems Name Problem SNOMED Code Status Onset Date Resolution Date Notes Provider Name and Address Organization Details Recorded Time Atrial fibrillation 99487412 Active 2022 Kathy harmon, PA - [facility] 3 12:46:09 Hypertensive disorder 08913325 Active 2022 Kathy harmon, PA - [facility] 12:46:15 Problem Notes None recorded. Medical Equipment None Reported. Allergies Allergen ID Allergen Name Allergen Category Reaction Reaction Severity Criticality Documentation Date Start Date Code Code System Note Provider Name and Address Organization Details Recorded Time 050820 grass pollen environme nt,medica tion Not available Not available Not available 01/26/2023 Kathy harmon, PA - [facility] 3 12:44:21 880499 cat dander environme nt Not available Not available Not available 01/26/2023 Kathy harmon, PA - [facility] 3 12:44:25 690919 Canis lupus familiari s extract environme nt Not available Not available Not available 01/26/2023 82726 4 RxNorm Kathy harmon, PA - [facility] 3 12:44:28 598758 house dust allergeni c extract environme nt,medica tion Not available Not available Not available 01/26/2023 87531 9 RxNorm Kathy harmon, PA - [facility] 3 12:44:34 045335 mold extract environme nt Not available Not available Not available 01/26/2023 11050 8 RxNorm Kathy [facility], [facility] - [facility] [...] propionate 50 mcg/actuati on nasal spray,suspe nsion [place] 1 spray every day by intranasa l [...] [Score] - Reported Respiratory rate Oxygen saturation Heart rate Body temperature Systolic And Diastolic Provider Name and Address Organization Details Last Updated DateTime 3 190.5 cm 40 kg/m2 720448. 56 g 6 18 /min 97 % 61 /min 98 [degF] 128/77 mm[Hg] Kathy [facility] 3 12:49:00 Social History Question Answer Notes LastModified by [employer] Details LastModified Time Tobacco Smoking Status Never Smoker BALDO Marcelo [facility] 01/26/2023 12:46:44 Have You Recently Traveled Abroad? No Information not available 01/26/2023 Sex: Unknown Functional Status Question Answer Note LastModified by [employer] Details LastModified Time Do you use any [...] Recorded Time zoster recombinant 8 completed Kathy Monfeishe null, PA - [facility] 01/26/2023 12:43:57 zoster recombinant 8 completed Kathy Crawforde null, PA - [facility] 01/26/2023 12:43:57 [...] or 50 mcg/0.25mL dose 2 completed Kathy Crawforde null, PA - [facility] 01/26/2023 12:43:57 pneumococcal polysaccharide PPV23 0 completed Kathy Crawforde null, PA - [facility] 01/26/2023 12:43:57 [...] ICD10 Code Diagnosis IMO Codes Diagnosis Note [id number] [facility] [address] [place] [address] 02/23/2022 08:42:28 02/23/2022 10:05:26 [id number] Addison Hall DO [facility] [address] [place] [address] 01/26/2023 10:33:28 01/26/2023 13:38:31 Upper respiratory infection 78440741 J06.9 Viral infectionR ecommend plenty of fluidsTyle nol for pain/fever Humidifier Nasal saline sprayNo need for antibiotic may last up to 2 weeksCall or RTC if worsening cough, SOB, high fever, rash, n/v/d and unable to hydrate Allergic rhinitis 662439 04 J30.9 Sx and PE c/w allergic [...] Member ID Guarantor Name 01/26/2023 1 MEDICARE B-SC: [employer] Mahin Ha [id number] 8 Mahin Ha 01/26/2023 2 [employer] [facility] INDEMNITY PLAN (INDEMNITY) [id number] Mahin Ha [id number] Mahin Ha Notes Date Note Type Note Provider Name and Address Organization Details Recorded Time 01/26/2023 text/html COVID-19 SymptomsReported by Patient CongestionReported by [email or web address] yo male c/o congestion and sore throat x3 days, no known exposure to covid, took home covid test and was negative, requests rapid covid test No feverNo chillsNo coughNo difficulty breathing or respiratory distressNo wheezeNo CPNo ear painNo Abdominal painNo nauseaNo vomitingNp diarrheaNo myalgiaNo fatigueNo rashNo HANo dizzinessNo recent travelNo known sick contactsROS as noted in the HPI Addison Hall DO [address] [place], [address], [place] - [facility] 01/26/2023 13:33:08
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
--- OUTSIDE RECORDS SUMMARY | 2025-09-03 07:53 | XMS_ITS | Patient Health Record ---
Author Organization [facility] [place] Address [address] [place] [address] Care Team Providers Care Pile Driver Engineer Name Role Phone Blue Acosta MD Primary Care Provider Milli Jimenez Unavailable [phone] Allergies Allergen (clinical drug ingredient) Drug/Non Drug [...] W/U Status Risk Notes Problem Tinea unguium (147066948) Tinea unguium (B35.1) Active confirmed Problem Acquired hammer toe of left foot (7548981476751666 ) Other hammer toe(s) (acquired), left foot (M20.42) Active confirmed Problem Localized, primary osteoarthritis of the ankle and/or foot (505980324) Arthritis of joint of lesser toe, left [...] X ray : Foot, left 3V 05/06/2024 90424-UCYTWJV NAIL, 1-5 08/17/2023 54108-HOEUGVN NAIL, 1-5 03/31/2016 26429- Debride <25 sq cm 09/02/2013 65293- Debride <25 sq cm 08/17/2023 11835-MPPRDTR SKIN/TISSUE 07/07/2013 49797-NDCMUUI SKIN/TISSUE 07/22/2013 53268-ZROPWUJ SKIN/TISSUE 08/12/2013 Insurance Providers Payer Name Payer Address Payer Phone Subscriber Number Group Number Insured Name Patient Relationship to Insured Coverage Start Date Coverage End Date [employer] [address] [place] [address] [id number] Mahin Ha Self - patient is the insured [facility] ([facility]) [address] [place] [address] [id number] Mahin Ha Self - patient is [...]
--- OUTSIDE RECORDS SUMMARY | 2025-09-03 07:53 | XMS_ITS | Data Portability ---
Author Organization [place] - [facility], Allergy Address [address] [address] Care Team Providers Care Interpreter Deaf Name Role Phone ANTONY MALDONADO Primary Care Provider HERMINIO CAVAZOS Primary Care Provider Assessment Encounter [...] CT Scan 2025 09:00A M [facility] Not available Not available Not available Test Results 15 2025 09:30A M Bob Morgan, DO Not available Not available Not available Lab None recorded. Referral None recorded. Procedures allergy testing, skin prick (PROC) 2024 025 [email or web address] Not available 09/02/2025 16:14:20 intraderm al allergy skin testing (PROC) 2024 025 [email or web address] Not available 09/02/2025 16:14:20 pulmonary function test procedure (PROC) 2024 025 [email or web address] Not available 09/02/2025 16:14:21 pulse oximetry (PROC) 2024 025 [email or web address] Not available 09/02/2025 16:14:21 Surgeries None recorded. Imaging None recorded. Medication Orders fluticaso ne propionat e 50 mcg/actua tion nasal spray,alireza pension 2024 [id number], [address] [facility], [place], [address], 09/01/2025 10:59:35 Patient TargetsNo targets recorded. Patient Instructions Encounter Date Encounter Id Patient Instructions Last Modified By Organization Details Last Modified Time 09/01/2025 [id number] allergies: care instructions [email or web address] Not available 09/01/2025 [...] Address Organization Details Recorded Time Allergic rhinitis 29068023 Active 2024 Bob Morgan, [address], [address] [place] [address] - [facility] 11/18/202 5 08:53:35 Obstructive sleep apnea syndrome 28057347 Active 2024 Bob Chinren, [address] [address], [place], [address], [facility] 5 10:51:38 Bilateral tinnitus 5390773108078 Active 2024 Bob Cathy, [address] [address], [place], [address], [facility] - [facility] 5 10:51:44 Chronic sinusitis 21757523 Active 2024 Bob Cathy, [address] [address], [place], [address], [facility] [place] 5 10:54:24 Paroxysmal atrial fibrillatio n 170707393 Active 2024 Bob Cathy, [address] [address], [place], [address], [facility] [place] 5 10:57:55 Problem Notes None recorded. Medical [...] propionate 50 mcg/actuati on nasal spray,suspe nsion [place] 1 spray every day by intranasa l [...] Updated DateTime 09/01/2025 190.5 cm 40.6 kg/m2 669911.52 armin [facility] 09/01/2025 10:23:49 Social History None recorded. Functional [...] ICD10 Code Diagnosis IMO Codes Diagnosis Note [id number] Bob Morgan, DO [facility] [address] [address] 09/01/2025 10:12:54 09/01/2025 10:56:29 Allergic rhinitis 67623443 J30.9 Obstructiv e sleep apnea syndrome 23447293 G47.33 0057911 Bilateral tinnitus 30259 31892 102 H93.13 276553 Chronic sinusitis 864181 00 J32.8 41214 Paroxysmal atrial fibrillation 836530073 I48.0 07550 Health Concerns Section Related Observation LastModified by Organization Detai ls LastModified Time None Recorded Concern Status LastModified by Organization Details LastModified Time None Recorded Advance Directives Directive None Recorded Payers Insurance Date Sequence Insurance Name Policy Number Policy Weldon Covered Member ID Weldon Member ID Guarantor Name 09/01/2025 2 [facility]MN[facility] [id number] Mahin Ha [id number] Mahin Ha 09/01/2025 1 MEDICARE B-[place]: [facility] Mahin Ha [id number] Mahin Ha Notes Date Note Type [...] in case of anaphylaxis. Bob Morgan, [address] [facility],[address] [address], [place], [address], [facility] - [facility] 09/01/2025 10:59:06
--- OUTSIDE RECORDS SUMMARY | 2025-09-03 07:53 | XMS_ITS | Patient Health Record ---
Author Organization Blue Acosta MD Address [address] [place], [place] [id number] Care Team Providers Care Transplant Registered Nurse Name Role Phone Blue Acosta Primary Care Provider Allergies Allergen (clinical drug ingredient) Drug/Non Drug Allergy documented on EMR Reaction Allergy Type Onset Date Status zolpidem ambien (uncoded) hallucinations Allergy Active amoxil (uncoded) rash Allergy Act dick Results Component Value Reference Range Notes Liver Panel Reviewed date:01/02/2025 12:30:46 PM Interpretation: Performing Lab:[facility], [address] [place] [phone] Notes/Report: Bilirubin Total 0.6 0.0-1.0 mg/dL Bilirubin Direct 0.3 0.0-0.5 mg/dL Aspartate Amino Transferase 29 5-37 U/L Alanine Aminotransferase 22 0-40 U/L Total Protein 7.6 6.5-8.0 g/dL Albumin Level 3.9 3.5-5.0 g/dL Alkaline Phosphatase 80 39-117 U/L Glucose Fasting Reviewed date:01/02/2025 12:30:54 PM Interpretation: Performing Lab:[facility], [address] [place] [phone] Notes/Report: Glucose Fasting 118 60-99 mg/dL A fasting glucose from 100-125 mg/dl is considered impaired (pre-diabetes). Lipid Panel with Reflex Reviewed date:01/02/2025 12:31:05 PM Interpretation: Performing Lab:[facility], [address] [place] [phone] Notes/Report: Triglycerides 118 <150 mg/dL Desirable Triglyceride: [...] A1c Reviewed date:01/03/2025 06:16:13 PM Interpretation: Performing Lab:[address] [address] Notes/Report: Hemoglobin A1c % 5.6 <6.0 % [...] average glucose, using the formula of the L3E-Atkdsow Average Glucose study (ADAG), Diabetes Care, Vol.31,#8, May. 2007 Complete Blood Count Auto Di ff Reviewed date:07/10/2025 12:29:22 PM Interpretation: Performing Lab:[facility], [address] [place] [phone] Notes/Report: White Blood Count 10.2 4.8-10.8 X10*3/uL [...] Panel Reviewed date:07/10/2025 12:29:39 PM Interpretation: Performing Lab:[facility], [address] [place] [phone] Notes/Report: Triglycerides 98 <150 mg/dL Desirable Triglyceride: [...] (Free>4and<10) Reviewed date:07/10/2025 12:29:01 PM Interpretation: Performing Lab:[address] [address] Notes/Report: PSA,Total (Free>4and<10) 0.26 0.00-4.00 ng/mL A [...] A1c Reviewed date:07/10/2025 12:28:51 PM Interpretation: Performing Lab:[address] [address] Notes/Report: Hemoglobin A1c % 6.1 <6.0 % [...] average glucose, using the formula of the U1M-Oypiesd Average Glucose study (ADAG), Diabetes Care, Vol.31,#8, May. 2007 Microalbumin, Random Reviewed date:07/16/2025 12:43:31 PM Interpretation: Performing Lab:[address] [address] Notes/Report: Creatinine Urine 91.72 Microalbumin Urine 8.0 Microalbum/Creatinine Ratio Ur 8.7 <30 ug/mg cr Albumin/Creatinine Ratio Reference Ranges: Normal: < 30 ug/mg creatinine Microalbuminuria: 30 - 300 ug/mg creatinine Clinical Albuminuria: > 300 ug/mg creatinine UA ClnCatch+Micro w/rflx Cul t Reviewed date:07/16/2025 12:43:48 PM Interpretation: Performing Lab:[facility], [address] [place] [phone] Notes/Report: Urine, Clean Catch Color Urine Yellow Appearance Urine Clear PH 6.5 5.0-9.0 Glucose Urine UA Negative Negative mg/dL Urine Blood Negative Negative Specific [place] - Urine 1.015 1.005-1.025 Urine Protein Negative Neg-Trace mg/dL Urine Ketones Negative Negative mg/dL Nitrite Urine Negative Negative Leukocyte Esterase Urine Negative Negative RBC Urine 0-2 0-2 /HPF WBC Urine 0-5 0-5 /HPF Squamous Epithelial Cell Urine 0-2 0-2 /HPF Bacteria Urine None Seen None Seen Hyaline Casts Urine 0-2 0-2 /LPF Hold Gold Reviewed date:01/02/2025 12:23:00 PM Interpretation: Performing Lab:[facility], [address] [place] [phone] Notes/Report: Johnie Milner See Note Specimen held untested for 24 hours; Call to request Chemistry testing. Complete Blood Count Auto Di ff Reviewed date:01/06/2025 08:02:47 PM Interpretation: Performing Lab:[facility], [address] [place] [phone] Notes/Report: White Blood Count 12.8 4.8-10.8 X10*3/uL [...] Panel Reviewed date:01/06/2025 08:04:15 PM Interpretation: Performing Lab:[facility], [address] [place] [phone] Notes/Report: Sodium 140 135-145 mmol/L Potassium 4.1 [...] Magnesium Reviewed date:01/06/2025 07:58:26 PM Interpretation: Performing Lab:[facility], [address] [place] [phone] Notes/Report: Magnesium 1.8 1.6-2.6 mg/dL Lipase Reviewed date:01/06/2025 07:58:34 PM Interpretation: Performing Lab:[facility], [address] [place] [phone] Notes/Report: Lipase 23 8-78 U/L CT NG by PCR Reviewed date:01/07/2025 02:59:49 PM Interpretation: Performing Lab:[facility], [address] [place] [phone] Notes/Report: Urine CT PCR NOT DETECTED Not [...] Cult Reviewed date:01/08/2025 04:41:34 PM Interpretation: Performing Lab:[facility], [address] [place] [phone] Notes/Report: Urine, Clean Catch Color Urine Yellow Appearance Urine Clear PH 5.5 5.0-9.0 Glucose Urine UA Negative Negative mg/dL Urine Blood Negative Negative Specific [place] - Urine 1.015 1.005-1.025 Urine Protein Negative Neg-Trace mg/dL Urine Ketones Negative Negative mg/dL Nitrite Urine Negative Negative Leukocyte Esterase Urine Negative Negative CT abdomen pelvis wo con Reviewed date:01/06/2025 08:03:52 PM Interpretation: Performing Lab: Notes/Report: [facility] [address] [place] [address] CT Scan Report Signed Patient: Mahin Ambrocio MR#: [id number] 045 : 1955 Acct:[id number] Age/Sex: 69 / M ADM Date: 01/06/25 Loc: .ED Attending Dr: Ordering Physician: Cristina Birmingham Date of Service: 01/06/25 Procedure(s): CT abdomen pelvis wo IV con Accession Number(s): [id number] cc: Blue Acosta MD; Cristina Birmingham Report Number: [id number]: Total DLP = 1401.00 mGy-cm EXAMINATION: CT [...] 01/06/25 1414 DD/ 1310 TD/TT: 01/06/25 1402 [facility]chardist: [address] [address] [address] Scan Report Signed Patient: Ziyad Ambrocio in G MR#: [id number] 045 : 1955 Acct:[id number] Age/Sex: 69 / M ADM Date: 01/06/25 Loc: .ED Attending Dr: Ordering Physician: Cristina Birmingham Date of Service: 01/06/25 Procedure(s): CT abd omen pelvis wo IV con Accession Number(s): [id number] cc: Blue Acosta MD; Cristina Birmingham Report Number: [id number]: Total DLP = 1401.00 mGy-cm EXAMINATION: CT [...] 01/06/25 1414 DD/ 1310 TD/TT: 01/06/25 1402 [facility]: US scrotum Reviewed date:01/07/2025 03:00:25 PM Interpretation: Performing Lab: Notes/Report: [address] [address] Ultrasound Report Signed Patient: Mahin Ambrocio MR#: [id number] 045 : 1955 Acct:[id number] Age/Sex: 69 / M ADM Date: 01/06/25 Loc: HO.ED Attending Dr: Ordering Physician: Omid Lopez MD Date of Service: 01/06/25 Procedure(s): US scrotum Accession Number(s): [id number] cc: Blue Acosta MD; Omid Lopez MD CLINICAL HISTORY: L testicular pain. Ultrasound scrotum. COMPARISON: None Technique: Real time sonographic imaging, including color-flow imaging, was performed by the diet tech. Multiple sales representative womens health static images were saved for review. FINDINGS: [...] OV> 01/07/25 0804 DD/ 15 TD/TT: 01/06/251815 [facility] [employer]: [place] [address] Ultrasound Report Signed Patient: Ziyad Ambrocio MR#: [id number] 045 : 1955 Acct:[id number] Age/Sex: 69 / M ADM Date: 01/06/25 Loc: .ED Attending Dr: Ordering Physician: Omid Lopez MD Date of Service: 01/06/25 Procedure(s): US scrotum Accession Number(s): [id number] cc: Blue Acosta MD; Omid Lopez MD CLINICAL HISTORY: L testicular pain. Ultrasound scrotum. COMPARISON: None Technique: Real time sonographic imaging, including color-flow imaging, was performed by the diet tech. Multiple sales representative womens health static images were saved for review. FINDINGS: [...] OV> 01/07/25 0804 DD/ 15 TD/TT: 01/06/251815 [employer]: US scrotum doppler Reviewed date:01/06/2025 08:04:52 PM Interpretation: Performing Lab: Notes/Report: [address] [address] Ultrasound Report Signed Patient: Mahin Ambrocio MR#: [id number] 045 : 1955 Acct:[id number] Age/Sex: 69 / M ADM Date: 01/06/25 Loc: HO.ED Attending Dr: Ordering Physician: Louise Callejas Date of Service: 01/06/25 Procedure(s): US scrotum doppler Accession Number(s): [id number] cc: Blue Acosta MD; Louise Callejas CLINICAL HISTORY: L testicular pain. Ultrasound scrotum. COMPARISON: None Technique: Real time sonographic imaging, including color-flow imaging, was performed by the diet tech. Multiple sales representative womens health static images were saved for review. FINDINGS: [...] in OV> 01/06/251815 DD/ 15 TD/TT: 01/06/251815 [facility] [employer]: [place] [address] Ultrasound Report Signed Patient: Ziyad Ambrocio MR#: [id number] 045 : 1955 Acct:[id number] Age/Sex: 69 / M ADM Date: 01/06/25 Loc: HO.ED Attending Dr: Ordering Physician: Louise Callejas Date of Service: 01/06/25 Procedure(s): US scr otum doppler Accession Number(s): [id number] cc: Blue Acosta MD; Louise Callejas CLINICAL HISTORY: L testicular pain. Ultrasound scrotum. COMPARISON: None Technique: Real time sonographic imaging, including color-flow imaging, was performed by the diet tech. Multiple sales representative womens health static images were saved for review. FINDINGS: [...] in OV> 01/06/251815 DD/ 15 TD/TT: 01/06/251815 [employer]: XR chest 2V Reviewed date:01/13/2025 02:56:25 PM Interpretation: Performing Lab: Notes/Report: [address] [address] XRay Report Signed Patient: Mahin Ambrocio MR#: [id number] 045 : 1955 Acct:[id number] Age/Sex: 69 / M ADM Date: 01/09/25 Loc: HO.XRAY Attending Dr: Blue Acosta MD Ordering Physician: Blue Acosta MD Date of Service: 01/09/25 Procedure(s): XR chest 2V Accession Number(s): [id number] cc: Blue Acosta MD EXAMINATION: XR CHEST [...] 01/09/25 1059 DD/ 1000 TD/TT: 01/09/25 1010 [facility] [employer]ist: [address] [address] XRay Report Signed Patient: Ziyad Ambrocio MR#: [id number] 045 : 1955 Acct:[id number] Age/Sex: 69 / M ADM Date: 01/09/25 Loc: HO.XRAY Attending Dr: Blue Acosta MD Ordering Physician: Blue Acosta MD Date of Service: 01/09/25 Procedure(s): XR isaias st 2V Accession Number(s): [id number] cc: Blue Acosta MD EXAMINATION: XR CHEST [...] 01/09/25 1059 DD/ 1000 TD/TT: 01/09/25 1010 [facility] [employer]: MR summers wo/w con Reviewed date:02/17/2025 04:48:05 PM Interpretation: Performing Lab: Notes/Report: [place] [address] Magnetic Resonance Report Signed Patient: Mahin Ambrocio MR#: [id number] 045 : 1955 Acct:[id number] Age/Sex: 69 / M ADM Date: 02/16/25 Loc: HO.MRI Attending Dr: Jamey Rojas MD Ordering Physician: Jamey Rojas MD Date of Service: 02/16/25 Procedure(s): MR abdomen wo/w con Accession Number(s): [id number] cc: Blue Acosta MD; Jamey Rojas MD CLINICAL HISTORY: N28.1 - Cyst of kidney, acquired MR abdomen with and without gadolinium Comparison: CT/NC/SR - CT ABDOMEN PELVIS WO IV CON [...] OV> 02/17/25 1311 DD/ 130 TD/TT: 02/17/251308 [facility] [employer]ist: [place] [address] Magnetic Resonance Report Signed Patient: Ziyad Ambrocio MR#: [id number] 045 : 1955 Acct:[id number] Age/Sex: 69 / M ADM Date: 02/16/25 Loc: HO.MRI Attending Dr: Jamey Rojas MD Ordering Physician: Jamey Rojas MD Date of Service: 02/16/25 Procedure(s): MR abd omen wo/w con Accession Number(s): [id number] cc: Blue Acosta MD; Jamey Rojas MD CLINICAL HISTORY: N2 8.1 - Cyst of kidney, acquired MR abdomen with and without gadolinium Comparison: CT/NC/SR - CT ABDOMEN PELVIS WO IV CON [...] OV> 02/17/25 131 DD/ 08 TD/TT: 02/17/251308 [facility]: XR lumbar spine 4V min Reviewed date:02/23/2025 12:34:44 PM Interpretation: Performing Lab: Notes/Report: [facility] [address] [place] [address] XRay Report Signed Patient: Mahin Ambrocio MR#: [id number] 045 : 1955 Acct:[id number] Age/Sex: 69 / M ADM Date: 02/20/25 Loc: HO.HOSX Attending Dr: Simon Solano MD, PhD Ordering Physician: Simon Solano MD, PhD Date of Service: 02/20/25 Procedure(s): XR lumbar spine 4V min Accession Number(s): [id number] cc: Blue Acosta MD; Simon Solano MD, PhD CLINICAL HISTORY: M43.16 - Spondylolisthesis, lumbar region 4 views lumbar spine Comparison: CT/NC/SR - CT ABDOMEN PELVIS WO IV CON [...] in OV> 02/23/2523 DD/ 1 TD/TT: 02/23/25821 [facility]: [facility] [address] [place] [address] XRay Report Signed Patient: Ziyad Ambrocio MR#: [id number] 045 : 1955 Acct:[id number] Age/Sex: 69 / M ADM Date: 02/20/25 Loc: HO.HOSX Attending Dr: Richard Solano MD, PhD Ordering Physician: Simon Solano MD, PhD Date of Service: 02/20/25 Procedure(s): XR lum bar spine 4V min Accession Number(s): [id number] cc: Blue Acosta MD; Simon Solano MD, PhD CLINICAL HISTORY: M4 3.16 - Spondylolisthesis, lumbar region 4 views lumbar spine Comparison: CT/NC/SR - CT ABDOMEN PELVIS WO IV CON [...] in OV> 02/23/25822 DD/ 1 TD/TT: 02/23/25821 [facility]: US bladder Reviewed date:05/28/2025 12:37:23 PM Interpretation: Performing Lab: Notes/Report: [facility] [address] [place] [address] Ultrasound Report Signed Patient: Mahin Ambrocio MR#: [id number] 045 : 1955 Acct:[id number] Age/Sex: 69 / M ADM Date: 05/28/25 Loc: HO.HMGCX Attending Dr: Don Aj MD Ordering Physician: Don Aj MD Date of Service: 05/28/25 Procedure(s): US bladder Accession Number(s): [id number] cc: Don Aj MD; Blue Acosta MD CLINICAL HISTORY: N32.0 - Bladder-neck obstruction US bladder with color Doppler Comparison: US/NC - US SCROTUM DOPPLER - 01/06/25 17:[address]/NC/SR - CT ABDOMEN PELVIS WO IV CON [...] in OV> 05/28/25946 DD/ 5 TD/TT: 05/28/25945 [facility]: [facility] [address] [place] [address] [place] [address] Ultrasound Report Signed Patient: Ziyad Ambrocio G MR#: [id number] 045 : 1955 Acct:[id number] Age/Sex: 69 / M ADM Date: 05/28/25 [facility] Dr: Joselin Bach MD Ordering Physician: Don Aj MD Date of Service: 05/28/25 Procedure(s): US bladder Accession Number(s): [id number] cc: Don Aj MD; Blue Acosta MD CLINICAL HISTORY: N3 2.0 - Bladder-neck obstruction US bladder with colo r Doppler Comparison: US/NC - US SCROTUM DOPPLER - 01/06/25 17:[address]/NC/SR - CT ABDOME N PELVIS WO IV [...] in OV> 05/28/25946 DD/ 5 TD/TT: 05/28/25945 [facility]ist: Harshil Bates. Panel Reviewed date:07/10/2025 12:37:03 PM Interpretation: Performing Lab:[facility], [address] [place] [phone] Notes/Report: Sodium 142 135-145 mmol/L Potassium 4.2 [...] ff Reviewed date:08/02/2025 02:18:12 PM Interpretation: Performing Lab:[facility], [address] [place] [phone] Notes/Report: White Blood Count 7.9 4.8-10.8 X10*3/uL [...] INR Reviewed date:08/02/2025 02:16:34 PM Interpretation: Performing Lab:[address] [address] Notes/Report: Prothrombin Time 23.8 10.9-12.4 [employer] [...] Panel Reviewed date:08/02/2025 02:16:51 PM Interpretation: Performing Lab:[address] [address] Notes/Report: Sodium 140 135-145 mmol/L Potassium 4.6 [...] ff Reviewed date:08/06/2025 08:14:33 PM Interpretation: Performing Lab:[facility], [address] [place] [phone] Notes/Report: White Blood Count 8.9 4.8-10.8 X10*3/uL [...] INR Reviewed date:08/05/2025 05:37:52 PM Interpretation: Performing Lab:[facility], [address] [place] [phone] Notes/Report: Prothrombin Time 18.3 10.9-12.4 [employer] [...] Panel Reviewed date:08/05/2025 05:42:43 PM Interpretation: Performing Lab:[address] [address] Notes/Report: Sodium 141 135-145 mmol/L Potassium 4.2 [...] End Date Status Flecainide Acetate 100 MG 1 tablet Orall y twice a day Active Morphine Sulfate 15 MG 1 tablet as neede d Orally every 4 hrs Not-Taking Celecoxib 200 MG TAKE 1 CAPSULE BY MOUTH EVERY DAY for 90 Active Mupirocin 2 % 1 application Externally Three times a day for 10 days 01/24/2021 Not-Taking Lisinopril 20 MG TAKE 1 TABLET BY DARIA TH EVERY DAY Active diazePAM 5 MG 1-2 tablet as needed Orally every 8 hours Not-Taking Xarelto 20 MG 1 tablet with food Orally Once a day Active ProAir HFA 108 (90 Base) MCG/ACT 2 puffs as needed Inhalation every 4 hrs for 30 days 11/20/2016 Not-Taking Metoprolol Succinate ER 50 MG TAKE 1 TABLET BY MOUTH EVERY DAY Active Nitrostat 0.4 MG 1 tablet under the tongue and allow to dissolve as needed Sublingual every 15 min for pain. may repeat time 3 for 30 days 05/16/2012 Not-Taking Atorvastatin Calcium 20 MG TAKE 1 TABLET BY MOUTH EVERY DAY Active Mounjaro 5 MG/0.5ML as directed Subcutaneous weekly for 30 days 07/16/2025 Active Alfuzosin HCl ER 10 MG 1 tablet immediat brandon after the same meal Orally Once a day Active levoFLOXacin 500 MG 1 tablet Orally Once a day Not-Taking Cyclobenzaprine HCl 10 MG 1 tablet at be dtime as needed Orally Once a day Not-Taking Triamcinolone Acetonide 0.5 % APPLY TO AFFECTED AREA TWICE A DAY EXTERNALLY FOR 30 DAYS for 30 Active Meclizine HCl 25 MG TAKE 1 TABLET BY DARIA TH EVERY DAY NEEDED for 30 Not-Taking Immunizations Vaccine Route Administration Date Status [...] Administered pt was given the vaccine at [facility] on [facility]. Fluarix Quadrivalent IM Intramuscular 06/24/2018 Administe [...] Problem Status W/U Status Risk Notes Problem 661538276 Diverticulitis (K57.92) Active confirmed Problem Sinusitis (68868881) Sinusitis (J32.9) Active c onfirmed Problem 688774240 Mixed hyperlipidemia (E78.2) Active confirmed Problem 298740459 Paroxysmal atria l fibrillation (I48.0) Active confirmed Problem 17741931 Atherosclerosis of aorta (I70.0) Active confirmed Problem 62587038246136241 Acute recurren t frontal sinusitis (J01.11) Active confirmed Problem 283729984 Angina effort (I20.8) Active confirmed Problem 162602661 Lumbar disc disease (M51.9) Active confirmed Problem 570431473 Tubular adenoma of colon (D12.6) Active confirmed Problem 51010355 Essential hypertension (I10) Active confirmed Problem 3394171 Prediabetes (R73.09) Active confirmed Problem 721891741 Morbid obesity due to excess calories (E66.01) Active confirmed Problem 399164861 Cervical disc disease (M50.90) Active confirmed Problem 344211016 Hammertoe of lef t foot (M20.42) Active confirmed Vital Signs Blood pressure diastolic 74 mm Hg 08/18/2025 eliezer ght is down 14 pounds since 07-16-25 Height 73 in 08/18/2025 weight is down 14 pounds since 07-16-25 Blood pressure systolic 112 mm Hg 08/18/2025 weig ht is down 14 pounds since 07-16-25 Weight 330 lbs 08/18/2025 weight is down 14 pounds since 07-16-25 BMI 43.53 kg/m2 08/18/2025 weight is down 14 pounds since 07-16-25 Encounters Encounter Location Date Provider Diagnosis Blue Acosta MD [address] [place] [id number] 01/02/2025 Blue Acosta Mixed hyperlipidemia E78.2 and Prediabetes R73.09 Blue Acosta MD [address] [place] [address] Drive [address] [place] [id number] 07/10/2025 Blue Acosta Mixed hyperlipidemia E78.2 ; Encounter for administration of vaccine Z23 ; Essential hypertension I10 and Prediabetes R73.09 Blue Acosta MD [address] [place] [address] Drive [address] [place] [id number] 01/09/2025 Blue Acosta Pleural effusion J90 ; Lumbar disc disease with radiculopathy M51.16 ; Foot drop, left M21.372 ; Prediabetes R73.09 and Mixed hyperlipidemia E78.2 Blue Acosta MD [address] [place] [address] Drive [address] [place] [address] [id number] 07/16/2025 Blue Acosta Prediabetes R73.09 ; Essential hypertension I10 ; Sinusitis J32.9 ; Mixed hyperlipidemia E78.2 ; Paroxysmal atrial fibrillation I48.0 and Depression screening Z13.31 Blue Acosta MD [address] [place] [address] [id number] 08/18/2025 Blue Acosta Prediabetes R73.09 Blue Acosta MD [address] [place] [address] [id number] 01/08/2025 Blue Acosta MD [address] [place] [id number] 01/12/2025 Blue Acosta MD [address] [place] [id number] 01/13/2025 Blue Acosta Pleural effusion J90 Blue Acosta MD [address] [place] [id number] 08/04/2025 Blue cAosta Assessments Encounter Date Diagnosis (ICD Code) Assessment [...] testing, THE ORDER HAS BEEN FAXED TO [employer] FOR SCHEDULING 07/16/2025 Prediabetes (ICD-10 - R73.09) patient verbalized understanding of medication and directions for use 07/16/2025 Essential hypertension (ICD-10 - I10) doing well, will continue current regiment 08/18/2025 Prediabetes (ICD-10 - R73.09) doing well, will continue current regiment 01/13/2025 [...] 2 VIEW PA & LAT 01/09/2025 Comprehensive [place]. Panel Fast 5 Microalbumin, Random 07/10/2025 XR chest 2V 01/13/2025 UA ClnCatch+Micro w/rflx Cult 07/10/2025 Future Test Test Name Order Date CT ABD & PELVIS WITH CONTRAST 2020 Next Appt Details Provider Name:Blue garrido, 09/15/2025 09:00:00 AM, [address] [place] [address], [address] [place] [address], [phone], Provider Name:Blue garrido, 01/18/2026 07:30:00 AM, [address] [place] [address], Suite [facility], [place], [place], [phone], Provider Name:Blue garrido, 01/25/2026 09:00:00 AM, [address] [place] [address], Suite [facility], [place], [place], [phone], Provider Name:Blue garrido, 07/12/2026 07:00:00 AM, [address] [place] [address], [address] [place] [address], [phone], Provider Name:Blue garrido, 07/19/2026 08:30:00 AM, [address], [address], [place], [place], [phone], Insurance Providers Payer Name Payer Address Payer Phone Subscriber Number Group Number Insured Name Patient Relationship to Insured Coverage Start Date Coverage End Date MEDICARE NHIC SOL [address] [place] [address] [id number] Mahin Ambrocio Self - patient is the insured [facility] [address] [place] [phone] [id number] Mahin Ambrocio Self - patient is the insured Medical (General) History Medical History History ICD Code colonoscopy 04/2012 for recta l bleeding due in 10 years; Colonoscopy done 10/27/[address] Sanchez - repeat 5 years. 03/30/25 colonoscopy - Daniel repeat 5y mournjourno goes up by 2.5 mg each month
--- NOTE | 2025-09-03 08:15 | MHC.OFFVIS ---
Vital Signs 09/03/25 08:16 Height 6 ft 3 in Weight 325 lb 6.436 oz BMI 40.7 BP 116/60 Blood Pressure Location Lt brachial Position Sitting Pulse 65 Pulse Source Monitor Intake Visit Reasons: F/u per nurse Plumber Required: No Allergies zolpidem (Ambien) Allergy (Severe, Verified 09/03/25 08:19) Unknown environmental allergies Adverse Reaction (Intermediate, Verified 09/03/25 08:19) Sinus Inflammation Medication List - Last Reconciled 09/03/25 by JESUS Reina alfuzosin ER 10 mg PO DAILY 90 days atorvastatin 20 mg PO DAILY celecoxib (Celebrex) 200 mg PO DAILY chair, wheel (Wheel chair) As directed chair, wheel (Wheel chair) As directed docusate sodium (Colace) 100 mg PO DAILY flecainide 100 mg PO Q12H fluticasone propionate 50 mcg/actuation 1 spray intranasal DAILY gabapentin 600 - 900 mg PO BEDTIME lisinopril 20 mg PO DAILY metoprolol succinate ER 50 mg PO DAILY multivitamin 1 tab PO DAILY rivaroxaban (Xarelto) 20 mg PO QPM tirzepatide (Mounjaro) 5 mg subcut QWEEK triamcinolone acetonide 0.5% 1 appl topical DAILY HPI HPI F/u per nurse: Details: The patient is a 69 year old individual presenting for follow-up of hypertension, diastolic dysfunction, and paroxysmal atrial fibrillation. The patient's last visit was on 02/03/2025. The patient has paroxysmal atrial fibrillation, which is currently managed with rhythm control using flecainide 100 mg BID and Xarelto 20 mg daily for anticoagulation. The patient reports no episodes of atrial fibrillation and identifies excessive caffeine as a potential trigger. A 6-day Holter monitor on 08/12/2025 showed sinus rhythm with an average heart rate of 64 bpm. The patient was seen in the emergency room on 08/02/2025 and 08/04/2025 for epistaxis and was managed conservatively. The epistaxis has since resolved, and the patient has found saline gel effective for prevention. Labs at the time were stable, with a hematocrit of 43.1. The patient's last echocardiogram on 01/13/2025 showed an ejection fraction of 58%, moderate septal asymmetric hypertrophy, and grade 2 diastolic dysfunction with no valve abnormalities. A pharmacological nuclear stress test on 09/29/2022 indicated likely normal myocardial perfusion with no evidence of infarction or ischemia. An EKG today showed normal sinus rhythm, left axis deviation, and left ventricular hypertrophy with a widened QRS, which is unchanged from prior EKGs. The patient reports feeling well and is adherent with medications, which include lisinopril 20 mg daily, metoprolol succinate 50 mg daily, flecainide 100 mg BID, Xarelto 20 mg daily, and atorvastatin 20 mg daily. A new corporate quality assurance manager has requested that the patient discontinue metoprolol in preparation for allergy injections. The patient has recently started Mounjaro, is currently on a 5 mg dose, and has lost nearly 30 pounds. The patient walks for exercise, denies chest pain, but reports shortness of breath after climbing 40 stairs, which resolves in a few minutes. The patient uses a CPAP machine each night. [facility] Medical History Renal cyst Bleeding hemorrhoids HTN (hypertension) PAF (paroxysmal atrial fibrillation) Surgical History Hx of endoscopic retrograde cholangiopancreatography H/O colonoscopy Hx of foot surgery History of tonsillectomy and adenoidectomy History of deviated nasal septum Hx of cholecystectomy History of mandibular surgery Family History Father CVD (cardiovascular disease) Mother No problems noted. Social History Alcohol intake: never Patient Tobacco Use Status: Never used Tobacco Current occupational status: retired Review of Systems Const All systems reviewed & are unremarkable except as noted in HPI and below ENT Reports dizziness and Denies nose pain Card Denies chest pain, Denies chest pain at rest, Denies chest pain with activity, Denies rapid heart rate, Denies pedal edema, Denies edema, Denies leg edema, Denies lightheadedness, Denies palpitations, Denies dyspnea, Denies dyspnea on exertion and Denies orthopnea Resp Denies cough, Denies dyspnea and Denies dyspnea on exertion GI Denies hematochezia and Denies change in stool character Musc Denies abnormal gait, Denies limited range of motion, Denies muscle cramps, Denies muscle weakness, Denies numbness, Denies radiating pain into limb, Denies stiffness and Denies tingling Neuro Denies abnormal gait, Reports dizziness, Denies numbness and Denies tingling Endo Denies palpitations Physical Exam Vital Signs: Last Vital Signs Pulse 65 09/03/25 08:16 BP 116/60 09/03/25 08:16 BMI result Body Mass Index 40.7 Const General: cooperative, healthy appearing, comfortable and no acute distress Orientation/consciousness: patient oriented x3 Neck Neck: Yes normal visual inspection and Yes no JVD Resp Effort & Inspection: normal respiratory effort Auscultation: clear to auscultation bilaterally, no crackles, no rales, no rhonchi and no wheezes Cardio Rate: regular rate Rhythm: regular rhythm Heart sounds: S1 normal heart sound present, S2 normal heart sound present, no gallops, no murmurs and no rubs Neuro General: patient oriented x3 Extrem General: Yes normal to inspection, No no pedal edema and No calf tenderness Psych Appearance: grossly normal Mental Status: mental status grossly normal Speech and movement: Normal speech and movement present Assessment & Plan Assessment & Plan (1) PAF (paroxysmal atrial fibrillation): Code(s): I48.0 - Paroxysmal atrial fibrillation Category: Medical Plan: History of paroxysmal atrial fibrillation treated with rhythm control using flecainide and metoprolol. He is going to begin allergy injections and they are asking that he stop his beta-arie. Will stop metoprolol and start on diltiazem CD 180 mg daily. Continue flecainide 100 mg b.i.d.. Continue Xarelto for anticoagulation. Prior epistaxis has resolved. Cardiology follow-up 6 months, sooner if needed. (2) Diastolic dysfunction: Code(s): I51.89 - Other ill-defined heart diseases Category: Medical Plan: History of diastolic dysfunction without heart failure. He is on Bumex every other day. No signs of heart failure on examination. (3) HTN (hypertension): Code(s): I10 - Essential (primary) hypertension Category: Medical Qualifiers: Hypertension type: primary hypertension Qualified Code(s): I10 - Essential (primary) hypertension Plan: Blood pressure goal less than 130/80. Well controlled at this time. Follows with Nephrology. Med change as above. Plan I discussed the need to change the patient's rate-controlling medication from metoprolol to diltiazem. I explained that this change was requested by the patient's corporate quality assurance manager in preparation for allergy injections, as beta-blockers like metoprolol can reduce the effectiveness of epinephrine if an allergic reaction were to occur. I clarified that a rate-controlling agent is necessary while taking flecainide, and diltiazem is a suitable alternative. I instructed the patient on how to switch the medications and advised that side effects are not expected. We reviewed the patient's recent history of epistaxis, which is now resolved, and confirmed that too much caffeine can be a trigger for atrial fibrillation. We will plan for a follow-up in six months, or sooner if any issues arise. And start taking diltiazem. Medications: New diltiazem HCl CD (Cartia XT) stop metoprolol and start Diltiazem 180 mg PO DAILY 30 caps 5RF 30 days Patient Instructions: - Stop taking your metoprolol And start taking diltiazem. - This medication change is necessary so you can safely receive allergy shots. - Continue taking all your other medications as prescribed, including flecainide, Xarelto, lisinopril, and atorvastatin. - Continue using saline gel in your nose as needed to prevent nosebleeds. - Avoid drinking too much caffeine, as it may trigger your atrial fibrillation. - Please schedule a follow-up appointment in our office in six months. - Contact our office sooner if you have any problems or concerns. Patient was informed and verbally consented to the use of an ambient scribe for clinic note documentation during this visit. Visit time spent on chart review, interview, assessment, orders, documentation. Coding Level of Care Code Est Pt Level 4 (76618) Complex EM visit Add On G2211 Diagnoses PAF (paroxysmal atrial fibrillation) I48.0 Diastolic dysfunction I51.89 Primary hypertension I10 Hypertension type: primary hypertension Time Spent (min) 30
[2025-09-03 08:16] VITALS: BP 116/60; PULSE 65; BMI 40.7
== END 2025-09-03 08:44 | disposition home or self-care (01) ==
LOC: HO.HCS 07:48
PROVIDERS: PCP Internal Medicine; Visit Provider Nurse Practitioner Family
DX: I48.0 Paroxysmal atrial fibrillation (principal); I51.89 Other ill-defined heart diseases; I10 Essential (primary) hypertension
CPT/HCPCS: 99214; G2211

== ENCOUNTER → 2025-09-03 07:47 | Outpatient (BNVA) | payer MEDICARE, OTHER, SELFPAY | PROVIDERS: PCP Internal Medicine; Visit Provider Nurse Practitioner Family | DX: I48.0 Paroxysmal atrial fibrillation (principal); I51.89 Other ill-defined heart diseases; I11.0 Hypertensive heart disease with heart failure | CPT/HCPCS: 93000; 93005; 99212 ==